=== PATIENT | male | born 1950 | race Caucasian/White ===

== ENCOUNTER → 2020-02-24 12:52 | Outpatient (BNVA) | payer OTHER, MEDICARE, SELFPAY | PROVIDERS: PCP Internal Medicine; Referring Provider Internal Medicine; Visit Provider Orthopaedic Surgery | DX: M17.0 Bilateral primary osteoarthritis of knee (principal); M23.92 Unspecified internal derangement of left knee | CPT/HCPCS: 99213 ==

== ENCOUNTER 2020-03-03 14:21 | Outpatient (REF) | payer OTHER, SELFPAY ==
--- NOTE | 2020-03-03 | MR_ITS ---
EXAMINATION: MR KNEE WITHOUT CONTRAST, RIGHT CLINICAL INFORMATION: Internal derangement. COMPARISON: None TECHNIQUE: MRI of the knee without contrast was performed using routine sequences on a high-field scanner. FINDINGS: MENISCI: Medial Meniscus: Irregular tear of the superior surface and free edge of the posterior horn, with a small displaced meniscal flap near the posterior root image 11 series 4. There is undersurface fraying/tear in the medial aspect of the posterior horn, as well. Degenerative signal in the body, with peripheral undersurface tearing. Lateral Meniscus: Degenerative signal in the body and posterior horn. Linear intermediate intensity horizontal signal in the body contacting the free edge, from possible superimposed tear, but this is not definitive. LIGAMENTS: Cruciate: Intact. Collateral: Intact. EXTENSOR MECHANISM: Intact. ARTICULAR CARTILAGE/BONE: Patellofemoral Compartment: Focal cartilage heterogeneity in the inferior medial trochlea, subchondral edema. Medial Compartment: Mild cartilage thinning and fissuring in the weightbearing femur. Mild cartilage thinning of the tibia. Lateral Compartment: Intact. JOINT FLUID AND BURSAE: Small effusion. Small Chavira's cyst. MR/MR knee RT wo con IMPRESSION: 1. Tear of the posterior horn of the medial meniscus, with a displaced flap near the posterior root. Undersurface tearing of the body. 2. Degeneration in the body of the lateral meniscus, with possible superimposed horizontal tear, but this is not definitive. 3. Mild patellofemoral and medial compartment arthritis. 4. Small effusion. Small Chavira's cyst.
== END 2020-03-03 14:22 | disposition home or self-care (01) ==
LOC: HO.MRI 14:21
PROVIDERS: PCP Internal Medicine; Visit Provider Orthopaedic Surgery
DX: M23.91 Unspecified internal derangement of right knee (principal)
CPT/HCPCS: 73721

== ENCOUNTER → 2020-03-12 09:55 | Outpatient (BNVA) | payer OTHER, SELFPAY | PROVIDERS: PCP Internal Medicine; Referring Provider Internal Medicine; Visit Provider Orthopaedic Surgery | DX: S83.241A Other tear of medial meniscus, current injury, right knee, initial encounter (principal); M17.0 Bilateral primary osteoarthritis of knee | CPT/HCPCS: 99212 ==

== ENCOUNTER 2020-04-15 08:38 | Day surgery (SDC) | payer OTHER, SELFPAY ==
[2020-04-09 16:56] VITALS: BMI 38.8
--- NOTE | 2020-04-14 12:02 | HO.ANESPROP2 ---
Documented by User: Anne Leary 04/14/20 12:07 HPI - Anesthesia Eval Consult details Narrative: 69yo M for Right Knee Scope PMFSH Past Medical History Medical History Acute medial meniscus tear of right knee Anxiety and depression Arthritis Back pain CAD (coronary artery disease) CHF (congestive heart failure) Chronic, continuous use of opioids COPD (chronic obstructive pulmonary disease) Degenerative arthritis of knee, bilateral Diabetes Elevated cholesterol GERD (gastroesophageal reflux disease) HTN (hypertension) Internal derangement of left knee Internal derangement of right knee Myocardial infarction On beta sean at home Peripheral neuropathy PTSD (post-traumatic stress disorder) Sleep apnea Surgical History Surgical History History of back surgery History of cardiac cath History of open reduction and internal fixation (ORIF) procedure History of penile implant Hx of arthroscopy of left knee Hx of bariatric surgery Hx of eye surgery Hx of repair of left rotator cuff Hx of sinus surgery Social History Social History (Updated 04/09/20 @ 16:47 by Rosalinda Almodovar) Smoking Status: Former smoker Smoking Quit Date: 1983 Use of substances other than those prescribed or required for medical reasons: No Advance Directives: No Advance Directives Information Provided: No Advance Directives on File: No Current occupational status: retired 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 Meds Allergies Allergy/AdvReac Type Severity Reaction Status Date / Time gabapentin [GABAPENTIN] Allergy Severe SHORTNESS Verified 04/15/20 08:54 OF BREATH naproxen [NAPROXEN] Allergy Unknown KIDNEY Verified 04/15/20 08:54 SHUT DOWN TO ALL NAPROXEN PRODUCTS Sulfa (Sulfonamide Allergy Unknown HIVES Verified 04/15/20 08:54 Antibiotics) [SULFA (SULFONAMIDE ANTIBIOTICS)] sulfur Allergy Unknown unknown Verified 04/15/20 08:54 anti-inflammatory Allergy Unknown unknown Uncoded 03/12/20 12:44 sulfa Allergy Unknown unknown Uncoded 03/12/20 12:44 Home Medications Medication Instructions Recorded Confirmed Type amlodipine 1 tab PO DAILY 04/09/20 04/15/20 History atorvastatin 1 tab PO DAILY 04/09/20 04/15/20 History brimonidine-timolol [Combigan] 1 drp BID 04/09/20 04/15/20 History dulaglutide [Trulicity] 1.5 mg SUBCUT QWEEK 04/09/20 04/15/20 History duloxetine 1 cap PO DAILY 04/09/20 04/15/20 History fenofibrate 1 tab PO BEDTIME 04/09/20 04/15/20 History furosemide [Lasix] 40 mg PO BID PRN 04/09/20 04/15/20 History hydroxyzine HCl 1 tab PO BEDTIME 04/09/20 04/15/20 History insulin NPH isoph U-100 human 25 unit SUBCUT BID 04/09/20 04/15/20 History [Novolin N NPH U-100 Insulin] insulin aspart U-100 [Novolog 10 unit SUBCUT BID 04/09/20 04/15/20 History U-100 Insulin aspart] losartan 1 tab PO DAILY 04/09/20 04/15/20 History metoprolol tartrate 1 tab PO BID 04/09/20 04/15/20 History nitroglycerin 1 tab SUBLINGUAL NEEDED PRN 04/09/20 04/15/20 History omeprazole 20 mg PO DAILY 04/09/20 04/15/20 History oxycodone-acetaminophen 1 tab PO 5XD PRN 04/09/20 04/15/20 History ropinirole 1 tab PO BEDTIME PRN 04/09/20 04/15/20 History Exam Exam Date and Time: April 14, 2020 1202 Height,Weight and Vital Signs: Height 5 ft 7 in Weight 112.491 kg Narrative Narrative: MIBI 2018: Fixed defect in area of previous MILAGRO; EF 44% with improvement to 60% with stress ECHO 2019: Low normal LV sys function with + RWMA of basal posterior wall with grade 2 DD, Mild LAE, Mild AR, no gross pericard effusion EKG 2019: SR, LAD Assessment and Plan Assessment Anesthesia Assessment: Chart Reviewed Documented by User: Gauri Navarro 04/15/20 12:02 [facility] Past Medical History Medical History Acute medial meniscus tear of right knee Anxiety and depression Arthritis Back pain CAD (coronary artery disease) CHF (congestive heart failure) Chronic, continuous use of opioids COPD (chronic obstructive pulmonary disease) Degenerative arthritis of knee, bilateral Diabetes Elevated cholesterol GERD (gastroesophageal reflux disease) HTN (hypertension) Internal derangement of left knee Internal derangement of right knee Myocardial infarction On beta sean at home Peripheral neuropathy PTSD (post-traumatic stress disorder) Sleep apnea Surgical History Surgical History History of back surgery History of cardiac cath History of open reduction and internal fixation (ORIF) procedure History of penile implant Hx of arthroscopy of left knee Hx of bariatric surgery Hx of eye surgery Hx of repair of left rotator cuff Hx of sinus surgery Social History Social History (Updated 04/09/20 @ 16:47 by Rosalinda Almodovar) Smoking Status: Former smoker Smoking Quit Date: 1983 Use of substances other than those prescribed or required for medical reasons: No Advance Directives: No Advance Directives Information Provided: No Advance Directives on File: No Current occupational status: retired 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 Meds Allergies Allergy/AdvReac Type Severity Reaction Status Date / Time gabapentin [GABAPENTIN] Allergy Severe SHORTNESS Verified 04/15/20 08:54 OF BREATH naproxen [NAPROXEN] Allergy Unknown KIDNEY Verified 04/15/20 08:54 SHUT DOWN TO ALL NAPROXEN PRODUCTS Sulfa (Sulfonamide Allergy Unknown HIVES Verified 04/15/20 08:54 Antibiotics) [SULFA (SULFONAMIDE ANTIBIOTICS)] sulfur Allergy Unknown unknown Verified 04/15/20 08:54 anti-inflammatory Allergy Unknown unknown Uncoded 03/12/20 12:44 sulfa Allergy Unknown unknown Uncoded 03/12/20 12:44 Home Medications Medication Instructions Recorded Confirmed Type amlodipine 1 tab PO DAILY 04/09/20 04/15/20 History atorvastatin 1 tab PO DAILY 04/09/20 04/15/20 History brimonidine-timolol [Combigan] 1 drp BID 04/09/20 04/15/20 History dulaglutide [Trulicity] 1.5 mg SUBCUT QWEEK 04/09/20 04/15/20 History duloxetine 1 cap PO DAILY 04/09/20 04/15/20 History fenofibrate 1 tab PO BEDTIME 04/09/20 04/15/20 History furosemide [Lasix] 40 mg PO BID PRN 04/09/20 04/15/20 History hydroxyzine HCl 1 tab PO BEDTIME 04/09/20 04/15/20 History insulin NPH isoph U-100 human 25 unit SUBCUT BID 04/09/20 04/15/20 History [Novolin N NPH U-100 Insulin] insulin aspart U-100 [Novolog 10 unit SUBCUT BID 04/09/20 04/15/20 History U-100 Insulin aspart] losartan 1 tab PO DAILY 04/09/20 04/15/20 History metoprolol tartrate 1 tab PO BID 04/09/20 04/15/20 History nitroglycerin 1 tab SUBLINGUAL NEEDED PRN 04/09/20 04/15/20 History omeprazole 20 mg PO DAILY 04/09/20 04/15/20 History oxycodone-acetaminophen 1 tab PO 5XD PRN 04/09/20 04/15/20 History ropinirole 1 tab PO BEDTIME PRN 04/09/20 04/15/20 History Exam Airway Mallampati Class: I TM Dist: <=3cm Neck ROM: Limited Partial: Upper and Lower Loose/Missing/Broken Teeth: Yes, Upper and Lower Heart: RRR Lungs: CTA Assessment and Plan Assessment Anesthesia Assessment: Anesthesia Plan Discussed and Chart Reviewed Final Anesthetic Review NPO: Yes ASA Class: III Final Preanesthetic Review: Meds/Allgs Chart Reviewed, Consent Obtained/Reviewed and Anes Risks/Benef Reviewed Patient Risk: Intermediate Procedure Risk: Low Anesthetic Plan Anesthetic Plan: GA Disposition: Standard PACU
[2020-04-15 09:18] VITALS: BP 176/76; PULSE 59; RESP 18; TEMP 36.9; O2SAT 97
[2020-04-15] MEDS: ceFAZolin Sodium/Dextrose,Iso 2 GM/50 ML PIGGYBACK IV (09:33)
[2020-04-15] MEDS: Lactated Ringers 1,000 ML 50 ML IVCONT (09:33)
[2020-04-15 09:37] LABS: Glucose, Whole Blood 188 mg/dL (60-115)
--- NOTE | 2020-04-15 12:05 | MHC.SHP ---
Pre-Procedural Eval Section A The patient is an INPATIENT: No Changes since office visit: Yes Patient answered all questions; No Cold of Flu in the past 2 weeks, No New Medical Problems and No Changes in Medication The History & Physical has been completed within 30 days and I have reviewed it.: Yes Section B Chief Complaint: Medial Meniscus Tear Allergies: Allergies Allergy/AdvReac Type Severity Reaction Status Date / Time gabapentin [GABAPENTIN] Allergy Severe SHORTNESS Verified 04/15/20 08:54 OF BREATH naproxen [NAPROXEN] Allergy Unknown KIDNEY Verified 04/15/20 08:54 SHUT DOWN TO ALL NAPROXEN PRODUCTS Sulfa (Sulfonamide Allergy Unknown HIVES Verified 04/15/20 08:54 Antibiotics) [SULFA (SULFONAMIDE ANTIBIOTICS)] sulfur Allergy Unknown unknown Verified 04/15/20 08:54 anti-inflammatory Allergy Unknown unknown Uncoded 03/12/20 12:44 sulfa Allergy Unknown unknown Uncoded 03/12/20 12:44 Plan Patient has been examined and remains a candidate for the planned procedure
--- NOTE | 2020-04-15 13:09 | PM.OP ---
Brief Operative Note Date of Service: 04/15/20 Pre-op diagnosis: right knee MMT Post-op diagnosis: other (1) right knee MMT 2 ) right knee MFC OA) Procedure: partial medial meniscectomy and chondroplasty Implants: none Surgeon: Derick Russo MD Anesthesia: GETA and local Estimated blood loss (mL): 0 Tourniquet time (min): 27 IV fluids (mL): 700 Pathology: none sent Condition: stable Disposition: PACU
[2020-04-15 13:12] VITALS: BP 115/49; PULSE 65; RESP 12; TEMP 36.5; O2SAT 100
[2020-04-15 13:17] VITALS: BP 163/43; PULSE 64; RESP 18; O2SAT 98
[2020-04-15 13:22] VITALS: BP 143/52; PULSE 57; RESP 16; O2SAT 98
[2020-04-15 13:27] VITALS: BP 169/57; PULSE 60; RESP 18; O2SAT 98
[2020-04-15] MEDS: oxyCODONE HCl Immed Release 5 MG TABLET PO (13:27)
[2020-04-15] MEDS: Acetaminophen 325 MG TABLET 650 MG PO (13:27)
[2020-04-15 13:42] VITALS: BP 154/76; PULSE 59; RESP 18; TEMP 36.5; O2SAT 96
--- NOTE | 2020-04-15 14:19 | HO.POSTANES ---
Post Anesthesia Evaluation Post Anesthesia Evaluation Vital Signs: Vital Signs Temp Pulse Resp BP Pulse Ox 04/15/20 13:42 97.7 F 59 18 154/76 H 96 04/15/20 13:27 60 18 169/57 H 98 04/15/20 13:22 57 16 143/52 H 98 04/15/20 13:17 64 18 163/43 H 98 04/15/20 13:12 97.7 F 65 12 115/49 L 100 04/15/20 09:18 98.4 F 59 18 176/76 H 97 Anesthesia: General LMA Mental Status: Awake Pain Control: Satisfactory Nausea/Vomiting: None Hydration: Adequate Anesthesia-Related Issues: No Anes. Related Issues
--- NOTE | 2020-04-23 14:45 | OP_ITS ---
SURGEON: Derick Russo MD INDICATIONS: 69-year-old gentleman with ongoing refractory right knee pain. MRI, clinical evidence of meniscus tear, but was treated conservatively for months until he plateaued and he was consented to undergo knee arthroscopy. PREOPERATIVE DIAGNOSIS: Right knee medial meniscus tear. POSTOPERATIVE DIAGNOSIS: PROCEDURE PERFORMED: Partial medial meniscectomy and chondroplasty. ESTIMATED BLOOD LOSS: Zero. COMPLICATIONS: None known. ANESTHESIA: ASSISTANTS: None. SPECIMENS: POSTOPERATIVE DIAGNOSES: 1. Right knee medial meniscus tear. 2. Right knee medial femoral condyle osteoarthritis. TOURNIQUET TIME: 27 minutes. FLUIDS: 700. PROCEDURE IN DETAIL: The patient was brought to the operating room, placed supine on the operative table and prepped and draped in standard sterile fashion. Time-out was called to identify proper site, proper procedure, proper surgeon. IV antibiotics per weight was administered. I began by exsanguinating the limb and insufflating tourniquet to 300 mmHg. I then made a standard anterolateral stab incision with a blade and then placed my blunt trocar atraumatically into the patellofemoral joint. I then insufflated the joint and placed my 30-degree arthroscope. He had some grade 1 fibrillation with mild grade 2 changes of the patellofemoral joint, but the gutters were clean. I descended into the medial compartment, where I made by medial portal under direct visualization. Almost immediately evident was a grade 3 with scattered grade 4 changes of the majority of the weightbearing portion of the medial femoral condyle with associated grade 2 changes of the tibial plateau. There was a complex medial meniscus tear, which was debrided down to stable edges with a combination of biter, shaver, and cautery. The chondral surfaces were debrided with a shaver, so there was no loose chondral fragments and the fibrillations were gone. Once this was done, I examined the ACL, which was intact and lateral compartment had some scattered grade 1 changes mostly of the plateau with intact meniscus. I then removed all instrumentation and closed the portals with skin glue. I injected into the knee and the soft tissues with 0.25% Marcaine. The patient was then extubated and brought to recovery room in stable condition. There were no known complications. Derick Russo MD NE/MODL / [id number]
== END 2020-04-15 14:30 | disposition home or self-care (01) ==
PROVIDERS: PCP Internal Medicine; Visit Provider Orthopaedic Surgery
PROC: (CPT 29870; principal; 2020-04-15 10:40)
DX: S83.231A Complex tear of medial meniscus, current injury, right knee, initial encounter (principal); S83.241A Other tear of medial meniscus, current injury, right knee, initial encounter; M23.300 Other meniscus derangements, unspecified lateral meniscus, right knee; M17.11 Unilateral primary osteoarthritis, right knee; M71.21 Synovial cyst of popliteal space [Baker], right knee; M25.461 Effusion, right knee; X58.XXXA Exposure to other specified factors, initial encounter; Y93.9 Activity, unspecified; Y92.9 Unspecified place or not applicable; Y99.8 Other external cause status; Z88.2 Allergy status to sulfonamides; Z88.8 Allergy status to other drugs, medicaments and biological substances; J44.9 Chronic obstructive pulmonary disease, unspecified; E11.9 Type 2 diabetes mellitus without complications; I11.0 Hypertensive heart disease with heart failure; I50.9 Heart failure, unspecified; F11.20 Opioid dependence, uncomplicated; F43.10 Post-traumatic stress disorder, unspecified; Z79.4 Long term (current) use of insulin; Z98.84 Bariatric surgery status; Z87.891 Personal history of nicotine dependence; Z79.899 Other long term (current) drug therapy
CPT/HCPCS: 29881; 82947; J0171; J0690; J2250; J2405; J3010

== ENCOUNTER → 2020-04-27 13:11 | Outpatient (BNVA) | payer OTHER, SELFPAY | PROVIDERS: PCP Internal Medicine; Visit Provider Physician Assistant | DX: M17.11 Unilateral primary osteoarthritis, right knee (principal); Z98.890 Other specified postprocedural states | CPT/HCPCS: 99212 ==

== ENCOUNTER → 2020-07-02 12:29 | Outpatient (BNVA) | payer OTHER, SELFPAY | PROVIDERS: Visit Provider Physician Assistant | DX: Z13.89 Encounter for screening for other disorder (principal) | CPT/HCPCS: 99212 ==

== ENCOUNTER 2020-07-20 12:28 | Outpatient (REF) | payer MEDICARE, BC, SELFPAY ==
[2020-07-20 15:00] LABS: Anion Gap 11 (12-20); Blood Urea Nitrogen 19 mg/dL (9-16); Calcium 8.7 mg/dL (8.4-10.2); Carbon Dioxide 29 mmol/L (22-29); Chloride 104 mmol/L (96-108); Estimated Glomerular Filt Rate 46; Phosphorus 3.4 mg/dL (2.7-4.5); Potassium 4.1 mmol/L (3.3-5.1); Sodium 140 mmol/L (135-145)
[2020-07-20 15:15] LABS: Renal w Reflex Lab Use Only Order verified
[2020-07-20 18:15] LABS: Protein/Creatinine Ratio, Ur 6.01 (<0.2); Total Protein Urine Random 592 mg/dL (<12)
== END 2020-07-20 12:29 | disposition home or self-care (01) ==
LOC: HO.HMGCLDS 12:28
PROVIDERS: PCP Internal Medicine; Visit Provider Internal Medicine Nephrology
DX: E11.22 Type 2 diabetes mellitus with diabetic chronic kidney disease (principal); I12.9 Hypertensive chronic kidney disease with stage 1 through stage 4 chronic kidney disease, or unspecified chronic kidney disease; N18.30 Chronic kidney disease, stage 3 unspecified
CPT/HCPCS: 36415; 80051; 82310; 82565; 84100; 84156; 84520

== ENCOUNTER → 2020-09-02 14:00 | Outpatient (BNVA) | payer MEDICARE, BC, SELFPAY | PROVIDERS: PCP Internal Medicine; Visit Provider Anesthesiology | DX: M17.11 Unilateral primary osteoarthritis, right knee (principal); Z98.890 Other specified postprocedural states | CPT/HCPCS: 99202 ==

== ENCOUNTER 2020-11-03 05:50 | Outpatient (REF) | payer MEDICARE, BC, SELFPAY ==
--- NOTE | ~2020-11-03 | FL_ITS ---
EXAMINATION: XR FLUOROSCOPY WITH IMAGES CLINICAL INFORMATION: M17.11 - Unilateral primary osteoarthritis, right knee COMPARISON: Radiographs right knee 11/21/2019, MR right knee 03/03/2020 TECHNIQUE: Fluoroscopy performed by Venessa Hilton NP. Fluoroscopy time: 0.3 minutes DAP: 2.44 Gycm2 Images: 3 FINDINGS: There are fine needles overlying mid aspect medial and mid aspect lateral sides distal femoral shaft. There is one needle overlying mid aspect proximal tibial shaft. There is spurring at the quadriceps insertion patella. FL/FL guidance in treatment room IMPRESSION: Fluoroscopy for pain management procedures.
== END 2020-11-03 05:51 | disposition home or self-care (01) ==
LOC: HO.RADIR 05:50
PROVIDERS: Visit Provider Anesthesiology
DX: M17.11 Unilateral primary osteoarthritis, right knee (principal); Z98.890 Other specified postprocedural states
CPT/HCPCS: 64454

== ENCOUNTER → 2020-11-12 15:39 | Outpatient (BNVA) | payer MEDICARE, BC, SELFPAY | PROVIDERS: PCP Internal Medicine; Visit Provider Anesthesiology ==

== ENCOUNTER → 2020-12-11 13:18 | Outpatient (BNVA) | payer MEDICARE, BC, SELFPAY | PROVIDERS: PCP Internal Medicine; Visit Provider Urology | DX: T83.490A Other mechanical complication of implanted penile prosthesis, initial encounter (principal); N48.1 Balanitis | CPT/HCPCS: 99202 ==

== ENCOUNTER 2020-12-16 15:24 | Outpatient (REF) | payer MEDICARE, BC, SELFPAY ==
[2020-12-16 16:14] LABS: Estimated Average Glucose 229 mg/dL; Hemoglobin A1c % 9.6 %
[2020-12-16 16:21] LABS: Anion Gap 12 (12-20); Blood Urea Nitrogen 21 mg/dL (9-16); Calcium 9.6 mg/dL (8.4-10.2); Carbon Dioxide 30 mmol/L (22-29); Chloride 104 mmol/L (96-108); Estimated Glomerular Filt Rate 37; Potassium 4.9 mmol/L (3.3-5.1); Sodium 141 mmol/L (135-145)
== END 2020-12-16 15:25 | disposition home or self-care (01) ==
LOC: HO.LAB 15:24
PROVIDERS: Visit Provider Internal Medicine Nephrology
DX: Z13.89 Encounter for screening for other disorder (principal)
CPT/HCPCS: 36415; 80051; 82310; 82565; 83036; 84520

== ENCOUNTER 2021-01-26 07:47 | Outpatient (REF) | payer MEDICARE, BC, SELFPAY ==
--- NOTE | ~2021-01-26 | FL_ITS ---
EXAMINATION: XR FLUOROSCOPY WITH IMAGES CLINICAL INFORMATION: Arthritis COMPARISON: None. TECHNIQUE: Fluoroscopy performed by Venessa Hilton NP. Fluoroscopy time: 0.1 minutes DAP: 0.8 Gycm2 Images: 2 FINDINGS: Images demonstrate needle placement adjacent to the medial proximal tibial metaphysis. There is arthritis of the right knee. FL/FL guidance in treatment room IMPRESSION: Fluoroscopy guidance for pain management procedure.
== END 2021-01-26 07:48 | disposition home or self-care (01) ==
LOC: HO.RADIR 07:47
PROVIDERS: Visit Provider Anesthesiology
DX: M17.11 Unilateral primary osteoarthritis, right knee (principal)
CPT/HCPCS: 64450

== ENCOUNTER → 2021-02-03 13:32 | Outpatient (BNVA) | payer OTHER, SELFPAY | PROVIDERS: PCP Internal Medicine; Visit Provider Anesthesiology ==

== ENCOUNTER 2021-03-30 06:36 | Outpatient (REF) | payer OTHER, SELFPAY ==
--- NOTE | ~2021-03-30 | FL_ITS ---
EXAMINATION: XR FLUOROSCOPY WITH IMAGES CLINICAL INFORMATION: M17.11 - Unilateral primary osteoarthritis, right knee COMPARISON: MR right knee 03/03/2020 TECHNIQUE: Fluoroscopy performed by Dr. Aniceto Wiley. Fluoroscopy time: 0.1 minutes DAP: 1.39 Gycm2 Images: 1 FINDINGS: There are 2 spinal needles adjacent to the distal femoral shaft mid depth. There is spurring at the quadriceps insertion patella. FL/FL guidance in treatment room IMPRESSION: Fluoroscopy for pain management procedures.
== END 2021-03-30 06:37 | disposition home or self-care (01) ==
LOC: HO.RADIR 06:36
PROVIDERS: Visit Provider Anesthesiology
DX: M17.11 Unilateral primary osteoarthritis, right knee (principal); Z98.890 Other specified postprocedural states

== ENCOUNTER → 2021-04-07 13:39 | Outpatient (BNVA) | payer OTHER, SELFPAY | PROVIDERS: PCP Internal Medicine; Visit Provider Anesthesiology | DX: M17.11 Unilateral primary osteoarthritis, right knee (principal); G90.522 Complex regional pain syndrome I of left lower limb; Z98.890 Other specified postprocedural states | CPT/HCPCS: 99212 ==

== ENCOUNTER 2021-05-03 12:16 | Outpatient (REF) | payer OTHER, SELFPAY ==
--- NOTE | ~2021-05-03 | XR_ITS ---
EXAMINATION: XR PELVIS XR KNEE, STANDING BILATERAL XR KNEE, RIGHT CLINICAL INDICATION: Pain. COMPARISON: 11/21/2019 TECHNIQUE: Standing image of bilateral knees. Two views of the right knee. Single image of pelvis. FINDINGS: Standing image of the knees demonstrates moderate medial compartment joint space loss on the right greater than left. There is also lateral compartment moderate joint space loss on the left. More mild on the right. The detailed imaging of the right knee demonstrates moderate patellofemoral degenerative change. The patella appears well seated. Trace effusion is present. The single image of the pelvis demonstrates degenerative change in the lower lumbosacral spine. The SI joints are grossly patent but there does appear to be some sclerosis consistent with degenerative changes. Degenerative changes also in the hips but the femoral head contours are smooth. Degenerative change in the greater trochanteric regions left greater than right. Joint space loss in the right greater than left hip axial and inferior. XR/XR knee standing BI IMPRESSION: Moderate degenerative changes with specific areas described above. Findings are Ongoing from previous of 11/21/2019
--- NOTE | ~2021-05-03 | XR_ITS ---
EXAMINATION: XR PELVIS XR KNEE, STANDING BILATERAL XR KNEE, RIGHT CLINICAL INDICATION: Pain. COMPARISON: 11/21/2019 TECHNIQUE: Standing image of bilateral knees. Two views of the right knee. Single image of pelvis. FINDINGS: Standing image of the knees demonstrates moderate medial compartment joint space loss on the right greater than left. There is also lateral compartment moderate joint space loss on the left. More mild on the right. The detailed imaging of the right knee demonstrates moderate patellofemoral degenerative change. The patella appears well seated. Trace effusion is present. The single image of the pelvis demonstrates degenerative change in the lower lumbosacral spine. The SI joints are grossly patent but there does appear to be some sclerosis consistent with degenerative changes. Degenerative changes also in the hips but the femoral head contours are smooth. Degenerative change in the greater trochanteric regions left greater than right. Joint space loss in the right greater than left hip axial and inferior. XR/XR pelvis 1-2V IMPRESSION: Moderate degenerative changes with specific areas described above. Findings are Ongoing from previous of 11/21/2019
--- NOTE | ~2021-05-03 | XR_ITS ---
EXAMINATION: XR PELVIS XR KNEE, STANDING BILATERAL XR KNEE, RIGHT CLINICAL INDICATION: Pain. COMPARISON: 11/21/2019 TECHNIQUE: Standing image of bilateral knees. Two views of the right knee. Single image of pelvis. FINDINGS: Standing image of the knees demonstrates moderate medial compartment joint space loss on the right greater than left. There is also lateral compartment moderate joint space loss on the left. More mild on the right. The detailed imaging of the right knee demonstrates moderate patellofemoral degenerative change. The patella appears well seated. Trace effusion is present. The single image of the pelvis demonstrates degenerative change in the lower lumbosacral spine. The SI joints are grossly patent but there does appear to be some sclerosis consistent with degenerative changes. Degenerative changes also in the hips but the femoral head contours are smooth. Degenerative change in the greater trochanteric regions left greater than right. Joint space loss in the right greater than left hip axial and inferior. XR/XR knee RT 2V IMPRESSION: Moderate degenerative changes with specific areas described above. Findings are Ongoing from previous of 11/21/2019
== END 2021-05-03 12:17 | disposition home or self-care (01) ==
LOC: HO.HOSX 12:16
PROVIDERS: Visit Provider Orthopaedic Surgery
DX: M17.11 Unilateral primary osteoarthritis, right knee (principal); M25.561 Pain in right knee; R20.0 Anesthesia of skin; G90.522 Complex regional pain syndrome I of left lower limb; M25.552 Pain in left hip; M25.551 Pain in right hip; E11.42 Type 2 diabetes mellitus with diabetic polyneuropathy; E78.00 Pure hypercholesterolemia, unspecified; F41.8 Other specified anxiety disorders; Z88.6 Allergy status to analgesic agent; Z88.2 Allergy status to sulfonamides; Z88.8 Allergy status to other drugs, medicaments and biological substances; Z79.891 Long term (current) use of opiate analgesic
CPT/HCPCS: 72170; 73560; 73565; 99212

== ENCOUNTER → 2021-07-21 13:19 | Outpatient (BNVA) | payer OTHER, SELFPAY | PROVIDERS: PCP Internal Medicine; Visit Provider Anesthesiology | DX: M17.11 Unilateral primary osteoarthritis, right knee (principal); G90.522 Complex regional pain syndrome I of left lower limb; Z98.890 Other specified postprocedural states | CPT/HCPCS: 99212 ==

== ENCOUNTER 2021-07-21 14:57 | Outpatient (REF) | payer MEDICARE, BC, SELFPAY ==
[2021-07-21 15:13] LABS: MANUAL DIFF FLAG NO
[2021-07-21 15:19] LABS: Basophils Absolute Auto 0.1 X10*3/uL (0.0-0.2); Basophils Percent Auto 0.8 % (0-2); Eosinophils Absolute Auto 0.8 X10*3/uL (0.0-0.4); Eosinophils Percent Auto 8.4 % (0-4); Hematocrit 42.6 % (42.0-52.0); Hemoglobin 14.1 g/dl (14.0-18.0); Imm Gran Abs Auto 0.01 X10*3/uL (0.00-0.03); Imm Gran Pct Auto 0.1 % (0.0-0.4); Lymphocytes Absolute Auto 2.1 X10*3/uL (1.2-4.9); Mean Corpuscular HGB Conc 33.1 g/dl (31.0-36.0); Mean Corpuscular Hemoglobin 30.1 pg (27.0-33.0); Monocytes Absolute Auto 0.9 X10*3/uL (0.1-1.2); Monocytes Percent Auto 9.5 % (2-11); Neutrophils Absolute Auto 5.3 x10*3/uL (2.0-8.3); Neutrophils Percent Auto 58.2 % (45-73); Platelet Count 265 X10*3/uL (160-400); Red Blood Count 4.68 X10*6/uL (4.60-5.80); Red Cell Distribution Width 13.2 % (11.0-16.0)
[2021-07-21 15:26] LABS: Estimated Average Glucose 203 mg/dL; Hemoglobin A1c % 8.7 %
[2021-07-21 15:40] LABS: Anion Gap 11 (12-20); Blood Urea Nitrogen 15 mg/dL (9-16); Calcium 9.2 mg/dL (8.4-10.2); Carbon Dioxide 27 mmol/L (22-29); Chloride 106 mmol/L (96-108); Estimated Glomerular Filt Rate 41; Potassium 4.3 mmol/L (3.3-5.1); Sodium 140 mmol/L (135-145)
[2021-07-21 16:03] LABS: Vitamin D 25-OH Total 13.1 ng/mL (>30)
[2021-07-22 12:51] LABS: PTHI 105 pg/mL (16-77)
== END 2021-07-21 14:58 | disposition home or self-care (01) ==
LOC: HO.LAB 14:57
PROVIDERS: PCP Internal Medicine; Visit Provider Internal Medicine Nephrology
DX: I12.9 Hypertensive chronic kidney disease with stage 1 through stage 4 chronic kidney disease, or unspecified chronic kidney disease (principal); N18.31 Chronic kidney disease, stage 3a; E11.22 Type 2 diabetes mellitus with diabetic chronic kidney disease; E11.21 Type 2 diabetes mellitus with diabetic nephropathy
CPT/HCPCS: 36415; 80051; 82306; 82310; 82565; 83036; 83970; 84100; 84520; 85025

== ENCOUNTER 2021-11-11 10:04 | Outpatient (REF) | payer OTHER, SELFPAY ==
--- NOTE | 2021-11-11 10:07 | EMG_ITS ---
Right tibial and peroneal motor studies were performed, right superficial peroneal and sural sensory studies were performed, and paraspinal muscles were tested with a needle. 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 MD CHITRA Covarrubias/BRIAN / [id number]
== END 2021-11-11 10:05 | disposition home or self-care (01) ==
LOC: HO.NEURO 10:04
PROVIDERS: PCP Internal Medicine; Visit Provider Anesthesiology
DX: M21.6X9 Other acquired deformities of unspecified foot (principal)
CPT/HCPCS: 95886; 95909

== ENCOUNTER → 2021-12-02 10:06 | Outpatient (BNVA) | payer OTHER, SELFPAY | PROVIDERS: PCP Internal Medicine; Visit Provider Anesthesiology | DX: M17.11 Unilateral primary osteoarthritis, right knee (principal); G90.522 Complex regional pain syndrome I of left lower limb; Z98.890 Other specified postprocedural states | CPT/HCPCS: 99212 ==

== ENCOUNTER 2022-02-02 15:19 | Emergency (ER) | payer OTHER, MEDICARE, SELFPAY ==
--- NOTE | ~2022-02-02 | XR_ITS ---
EXAMINATION: XR CHEST CLINICAL INFORMATION: Chest pain COMPARISON: Previous x-ray March 2021 TECHNIQUE: 2 views of the chest were obtained. FINDINGS: The cardiac silhouette is enlarged. Hilar and mediastinal contours are unremarkable. The lungs are clear. There is no pleural effusion or pneumothorax. There are degenerative changes of the spine. There is a spinal stimulator lead in the lower thoracic spine. There are postsurgical changes to the left shoulder. XR/XR chest 2V IMPRESSION: Slightly enlarged cardiac silhouette. Otherwise unremarkable exam.
[2022-02-02 15:24] VITALS: BP 173/80; PULSE 65; RESP 18; TEMP 37.1; O2SAT 97; BMI 39.5
--- NOTE | 2022-02-02 15:31 | ECG_ITS ---
Test Reason : CHEST PAIN Blood Pressure : / mmHG Vent. Rate : 060 BPM Atrial Rate : 060 BPM P-R Int : 178 ms QRS Dur : 098 ms QT Int : 416 ms P-R-T Axes : 016 -23 051 degrees QTc Int : 416 ms Normal sinus rhythm Normal ECG When compared with ECG of 14-MAR-2012 14:04, Nonspecific T wave abnormality no longer evident in Lateral leads Referred By: Generic ED Physician Electronically Signed By:ZOË NIEVES
[2022-02-02 15:36] VITALS: BP 164/83
[2022-02-02 16:03] LABS: MANUAL DIFF FLAG NO
[2022-02-02 16:16] LABS: Basophils Percent Auto 0.5 % (0-2); Eosinophils Absolute Auto 0.3 X10*3/uL (0.0-0.4); Eosinophils Percent Auto 3.4 % (0-4); Hematocrit 41.4 % (42.0-52.0); Hemoglobin 13.4 g/dl (14.0-18.0); Imm Gran Abs Auto 0.03 X10*3/uL (0.00-0.03); Imm Gran Pct Auto 0.4 % (0.0-0.4); Lymphocytes Absolute Auto 2.6 X10*3/uL (1.2-4.9); Lymphocytes Percent Auto 35.2 % (20-40); Mean Corpuscular HGB Conc 32.4 g/dl (31.0-36.0); Mean Corpuscular Hemoglobin 28.9 pg (27.0-33.0); Mean Corpuscular Volume 89.2 fL (80.0-98.0); Mean Platelet Volume 9.7 fL (9.4-12.4); Monocytes Absolute Auto 0.7 X10*3/uL (0.1-1.2); Monocytes Percent Auto 9.4 % (2-11); Neutrophils Absolute Auto 3.7 x10*3/uL (2.0-8.3); Neutrophils Percent Auto 51.1 % (45-73); Platelet Count 288 X10*3/uL (160-400); Red Blood Count 4.64 X10*6/uL (4.60-5.80); White Blood Count 7.3 X10*3/uL (4.8-10.8)
[2022-02-02 16:23] LABS: Alanine Aminotransferase 13 U/L (0-40); Albumin Level 3.6 g/dL (3.5-5.0); Alkaline Phosphatase 56 U/L (39-117); Anion Gap 16 (12-20); Aspartate Amino Transferase 15 U/L (5-37); Bilirubin Total 0.3 mg/dL (0.0-1.0); Blood Urea Nitrogen 18 mg/dL (9-16); Calcium 9.4 mg/dL (8.4-10.2); Carbon Dioxide 27 mmol/L (22-29); Chloride 108 mmol/L (96-108); Creatinine Clr Calc Pharmacy 47.7; Estimated Glomerular Filt Rate 38; Glucose Random 97 mg/dL (60-115); Potassium 4.5 mmol/L (3.3-5.1); Sodium 146 mmol/L (135-145); Total Protein 6.6 g/dL (6.5-8.0)
[2022-02-02 16:28] LABS: Troponin-I High Sensitivity 14.5 ng/L (<3.5-35.0)
--- OUTSIDE RECORDS SUMMARY | 2022-02-03 00:24 | XMS_ITS | Continuity of Care Document ---
:1950 Author Organization [address], [address] [place] [address]- Care Team Providers Name Role Phone Oswaldo COBIAN, Anup Reece Primary Care Phys[place] [facility] [place]/[address], [address] [place], [place] [address] Allergies, Adverse Reactions, Alerts Substance Reaction Severity Status naproxen Balance disorder, dysphoria Persistent Severe Ac tive sulfa drugs severe rash all over Persistent Severe Active Advil1 stomach pain Persistent Severe Active 1recorded per 's written orders Immunizations Given and Recorded Vaccine Date Status Refusal Reason SARS-CoV-2 (COVID-19) mRNA BNT-162b2 vac 08/06/20 Given SARS-CoV-2 (COVID-19) mRNA BNT-162b2 vac 07/16/20 Given pneumococcal 23-valent vaccine 02/14/09 Given influenza virus vaccine, inactivated 02/14/09 Given Medications amLODIPine 5 mg oral tablet 5 mg, 1, tablet, By Mouth, Daily, # 90 tablet, Refills 3, Tot. Refills 3, Maintenance, 04/09/19 11:51:00 EST, Route to Pharmacy Electronically, [id number], [facility]/pharmacy #[id number],172.7, cm, 04/09/18 15:08:56 EST, Height, 114.1,... Start Date: 04/09/19 Status: Orderedaspirin 81 mg oral tablet 1 tablet, By Mouth, Daily, # 30 tablet, 0 Refills, Maintenance, Tablet Start Date: 09/29/10 Status: Orderedatorvastatin 80 mg oral tablet 1 tablet = 80 mg, By Mouth, Daily, # 90 tablet, 0 Refills, Maintenance, 09/03/19 11:26:00 EDT, Tablet Start Date: 09/03/19 Status: Orderedbaclofen 10 mg oral tablet 1 tablet = 10 mg, By Mouth, 4 times a day, PRN as needed for muscle spasm, 0 Refills, Maintenance, 10/31/11 9:57:57, Tablet Start Date: 10/31/11 Status: OrderedCPAP Equipment See Instructions, 0, 0, 07/25/07 16:53:36, CPap at 13 cm H2O with Nasal Pillows, ADS OPPTHS Start Date: 07/25/07 Status: Orderedfenofibrate 54 mg oral tablet 1 tablet = 54 mg, By Mouth, Daily, Maintenance, 08/28/15 9:15:28 Start Date: 08/28/15 Status: OrderedFurosemide = 40 mg, By Mouth, Daily, PRN Other, as needed for edema, 0 Refills, Maintenance, 08/21/10 12:30:41 Start Date: 08/21/10 Status: OrderedHumalog Inj 40ux - 60ux, Subcutaneous Infusion, 3 times a day before meals, 0 Refills, Maintenance, 06/23/10 4:03:14 Start Date: 06/23/10 Status: OrderedhydrOXYzine hydrochloride 10 mg oral tablet See Instructions, 1 tablet By Mouth AT BEDTIME NEEDED, 0 Refills, Maintenance, 09/03/19 11:25:00 EDT Start Date: 09/03/19 Status: Orderedlansoprazole 15 mg oral enteric coated capsule 1 capsule, By Mouth, 2 times a day, # 30 capsule, 0 Refills, Maintenance, 09/29/10 14:22:27 EDT, EC Capsule Start Date: 09/29/10 Status: OrderedLantus 100 u/ml subcutaneous solution 68 units, Subcutaneous Infusion, Daily at bedtime, 0 Refills, Maintenance Start Date: 09/29/10 Status: Orderedlisinopril 40 mg oral tablet 1 tablet, By Mouth, Daily, # 30 tablet, 0 Refills, Maintenance, Tablet Start Date: 09/29/10 Status: Orderedmetoprolol 50 mg oral tablet 1 tablet = 50 mg, By Mouth, 2 times a day, # 60 tablet, 0 Refills, Maintenance, Tablet Start Date: 08/23/10 Status: Orderednitroglycerin 0.4 mg sublingual tablet 1 tablet = 0.4 mg, Sublingual, Every 5 minutes, PRN for chest pain, # 25 tablet, 2 Refills, Maintenance, 09/03/19 12:11:00 EDT, Tablet, [facility]/pharmacy #[id number], 172.7, cm, 04/09/18 15:08:00 EST, Height, 114.1, kg, 04/09/18 6:42:00 EST, Dry Weight Start Date: 09/03/19 Status: OrderedOxycodone By Mouth, 0 Refills, Maintenance Start Date: 09/29/10 Status: OrderedRequip 3 mg oral tablet 1 tablet = 3 mg, By Mouth, Daily at bedtime, PRN Other, for restless leg syndrome, 0 Refills, Maintenance, 09/14/10 11:30:43 Start Date: 09/14/10 Status: OrderedTrulicity Pen 0.75 mg/0.5 mL subcutaneous solution 0.5 mL = 0.75 mg, Subcutaneous Injection, Every week, 0 Refills, Maintenance, 09/03/19 11:22:00 EDT,Solution Start Date: 09/03/19 Status: Orderedvenlafaxine 37.5 mg oral capsule, extended release 37.5 mg, 1, capsule, By Mouth, Daily, # 90 capsule, Refills 0, Maintenance, 09/03/19 11:24:00 EDT Start Date: 09/03/19 Status: Orderedvenlafaxine 50 mg oral tablet 1 tablet = 50 mg, By Mouth, Daily, 0 Refills, Maintenance, 09/03/19 11:25:00 EDT, Tablet Start Date: 09/03/19 Stop Date: 10/03/19 Status: OrderedVitamin E By Mouth, Daily, 0 Refills, Maintenance Start Date: 09/29/10 Status: Ordered Problem List Condition Effective Dates Status Health Status Informant Acute renal failure 05/08/10 Active syndrome(Confirmed) Chronic Kidney Disease, Stage III Active (Moderate)(Confirmed) Chronic low back pain(Confirmed) Active Coronary artery disease(Confirmed) 08/07/05 Active Coronary artery disease(Confirmed) Active Diabetes mellitus - adult 06/09/02 Active onset(Confirmed) Diabetes mellitus type 2(Confirmed)1 Active Hyperlipidemia(Confirmed) Active Hypertension(Confirmed) Active Obstructive sleep apnea (adult or Active pediatric)(Confirmed) Restless legs syndrome(Confirmed) Active 1insulin dependent Social History Social History Type Response Smoking Status Former smoker; Tobacco user in household: No; Type: Cigarettes; Other: pt quit over 30 yrs ago; entered on: 01/29/16 Sex
--- OUTSIDE RECORDS SUMMARY | 2022-02-03 00:24 | XMS_ITS | Continuity of Care Document ---
:1950 Author Organization [facility] Address [address] [place] [id number]- Care Team Providers Name Role Phone Anup Chacon MD Primary Care Physician [place] [facility] [place]22[place]21 - 09/23/[address] [address] [[email or web address] Discharge Disposition: A-D/C Home Attending Physician: Amado Linares MD Admitting Physician: Amado Linares MD Referring Physician: Amado Linares MD Allergies, Adverse Reactions, Alerts Substance Reaction Severity [...] influenza virus vaccine, inactivated 02/14/09 Given Medications aspirin 81 mg oral tablet 1 tablet, By [...] 10/31/11 9:57:57, Tablet Start Date: 10/31/11 Status: OrderedCombigan 0.2%-0.5% ophthalmic solution 1 drops, Eyes, Both, Every 12 hours, # 10 mL, 0 Refills, Maintenance, 09/21/21 8:19:00 EDT, Solution, Partial fill upon patient request if the prescription is for a schedule II opioid drug. Start Date: 09/21/21 Status: OrderedCPAP Equipment See Instructions, 0, 0, 07/25/07 16:53:36, CPap at 13 cm H2O with Nasal Pillows, ADS OPPTHS Start Date: 07/25/07 Status: Orderedduloxetine 30 mg oral enteric coated capsule 3 capsule = 90 mg, By Mouth, Daily, do not crush or chew, # 90 capsule, 0 Refills, Maintenance, 05/06/21 14:31:00 EST, CR Capsule, Partial fill upon patient request if the prescription is for a schedule II opioid drug. Start Date: 05/06/21 Status: Orderedfenofibrate 54 mg oral tablet 1 tablet = 54 mg, By Mouth, Daily, Maintenance, 08/28/15 9:15:28 Start Date: 08/28/15 Status: OrderedFLUoxetine 40 mg oral capsule 1 capsule = 40 mg, By Mouth, Daily in AM, Maintenance, 09/21/21 8:16:00 EDT, Capsule, Partial fill upon patient request if the prescription is for a schedule II opioid drug. Start Date: 09/21/21 Status: OrderedFurosemide = 40 mg, By Mouth, Daily, PRN Other, as needed for edema, 0 Refills, Maintenance, 08/21/10 12:30:41 Start Date: 08/21/10 Status: Orderedgabapentin 300 mg oral capsule 300 mg, Capsule, By Mouth, 09/23/21 9:00:00 EDT Start Date: 09/23/21 Stop Date: 09/23/21 Status: CompletedhydrOXYzine hydrochloride 10 mg oral tablet See Instructions, 1 tablet By Mouth AT BEDTIME NEEDED, 0 Refills, Maintenance, 09/03/19 11:25:00 EDT Start Date: 09/03/19 Status: Orderedlosartan 100 mg oral tablet 1 tablet = 100 mg, By Mouth, Daily at bedtime, # 30 tablet, 0 Refills, Maintenance, 05/06/21 14:31:00 EST, Tablet, Partial fill upon patient request if the prescription is for a schedule II opioid drug. Start Date: 05/06/21 Status: OrderedLumigan 0.01% ophthalmic solution 1 drops, Eyes, Both, Daily in PM, 0 Refills, Maintenance, 09/21/21 8:19:00 EDT, Solution, Partial fill upon patient request if the prescription is for a schedule II opioid drug. Start Date: 09/21/21 Status: Orderedmetoprolol 50 mg oral tablet 1 tablet = 50 mg, By Mouth, 2 times a day, # 60 tablet, 0 Refills, Maintenance, Tablet Start Date: 08/23/10 Status: Orderedmetoprolol 50 mg oral tablet 50 mg, Tablet, By Mouth, 09/23/21 9:00:00 EDT Start Date: 09/23/21 Stop Date: 09/23/21 Status: Completedmirtazapine 30 mg oral tablet 1 tablet = 30 mg, By Mouth, Daily in AM, # 30 tablet, 0 Refills, Maintenance, 05/06/21 14:31:00 EST,Tablet, Partial fill upon patient request if the prescription is for a schedule II opioid drug. Start Date: 05/06/21 Status: Orderednitroglycerin 0.4 mg sublingual tablet 1 tablet = 0.4 mg, Sublingual, Every 5 minutes, PRN for chest pain, # 25 tablet, 2 Refills, Maintenance, 09/03/19 12:11:00 EDT, Tablet, [facility]/pharmacy #[id number], 172.7, cm, 04/09/18 15:08:00 EST, Height, 114.1, kg, 04/09/18 6:42:00 EST, Dry Weight Start Date: 09/03/19 Status: OrderedNovoLog Inj = 12 units, Subcutaneous Injection, Daily in AM, 0 Refills, Maintenance, 09/21/21 8:21:00 EDT, Partial fill upon patient request if the prescription is for a schedule II opioid drug. Start Date: 09/21/21 Status: OrderedNovoLog Inj = 25 units, Subcutaneous Infusion, Daily at bedtime, 0 Refills, Maintenance, 09/21/21 8:29:00 EDT, Partial fill upon patient request if the prescription is for a schedule II opioid drug. Start Date: 09/21/21 Status: OrderedOmeprazole 3 pills, By Mouth, Daily in AM, 0 Refills, Maintenance, 05/06/21 14:32:00 EST, Partial fill upon patient request if the prescription is for a schedule II opioid drug. Start Date: 05/06/21 Status: OrderedoxyCODONE 5 mg oral tablet 5 mg, 1, tablet, By Mouth, Every 6 hours, PRN, # 28 tablet, Refills 0, Tot. Refills 0, Acute 09/30/21 14:24:00 EDT, Pain , Moderate, 09/22/21 14:24:00 EDT, Route to Pharmacy Electronically, [facility], Partial fill upon patient request i... Start Date: 09/22/21 Stop Date: 09/30/21 Status: OrderedPercocet 10 mg-325 mg oral tablet 1 tablet, By Mouth, Every 4 hours, PRN Pain , Moderate, 0 Refills, Maintenance, 09/21/21 8:26:00 EDT, Partial fill upon patient request if the prescription is for a schedule II opioid drug. Start Date: 09/21/21 Status: OrderedRequip 3 mg oral tablet 1 tablet = 3 mg, By Mouth, Daily at bedtime, PRN Other, for restless leg syndrome, 0 Refills, Maintenance, 09/14/10 11:30:43 Start Date: 09/14/10 Status: Orderedsertraline 150 mg oral capsule 1 capsule = 150 mg, By Mouth, Daily in AM, 0 Refills, Maintenance, 09/21/21 8:09:00 EDT, Partial fill upon patient request if the prescription is for a schedule II opioid drug. Start Date: 09/21/21 Status: OrderedTriamcinolone See Instructions, 0 Refills, Maintenance, 09/21/21 8:31:00 EDT, Partial fill upon patient request ifthe prescription is for a schedule II opioid drug. Start Date: 09/21/21 Status: OrderedTrulicity Pen 0.75 mg/0.5 mL subcutaneous solution 0.5 mL = 0.75 mg, Subcutaneous Injection, Every week, 0 Refills, Maintenance, 09/03/19 11:22:00 EDT,Solution Start Date: 09/03/19 Status: Ordered Problem List Condition Effective Dates Status Health Status Informant Acute renal failure 05/08/10 Active syndrome(Confirmed) Chronic Kidney Disease, Stage III Active (Moderate)(Confirmed) Chronic low back pain(Confirmed) Active Coronary artery disease(Confirmed) 08/07/05 Active Coronary artery disease(Confirmed) Active Diabetes mellitus - adult 06/09/02 Active onset(Confirmed) Diabetes mellitus type 2(Confirmed)1 Active Hyperlipidemia(Confirmed) Active Hypertension(Confirmed) Active Obese class II(Confirmed) Active Obstructive sleep apnea (adult or Active pediatric)(Confirmed) Restless legs syndrome(Confirmed) Active 1insulin dependent Procedures Procedure Date Related Diagnosis Body Site Status Laminectomy for implantation of Completed neurostimulator electrodes, plate/paddle, epidural Results Radiology Reports Exam Date Time Procedure Performing Provider Status 09/22/21 4:16 PM C-Arm > 1 Hour Neri Leal; Auth (Verified) Notes:(C-Arm > 1 Hour) Reason For Exam: spinal stimRESULT: C-Arm > 1 Hour Spine Single View, C-Arm > 1 Hour INDICATION: Reason: spinal stim COMPARISONS: None TECHNIQUE: Fluoroscopy support was provided. There was no radiologist in attendance. FLUOROSCOPY TIME: 18.9 seconds EXPOSURE: 16.95 mGy TECHNOLOGIST TIME: 55 minutes FINDINGS: Images document spinal stimulator lead placement terminating in the mid to lower thoracic spine. IMPRESSION: See above. WSN: [id number] Ordering Physician: Amado Linares Dictated By: Liang Chávez MD Dictated Date/Time: 09/22/21 4:37 pm Reviewed By: Liang Chávez MD Signed By: Liang Chávez MD Signed Date/Time: 09/22/21 4:37 pm Transcribed By: BREANNA Transcribed Date/Time: 09/22/21 4:37 pm Exam Date Time Procedure Performing Provider Status 09/22/21 4:16 PM Spine Single View Neri Leal; Auth (Verified ) Notes:(Spine Single View) Reason For Exam: spinal stimRESULT: Spine Single View Spine Single View, C-Arm > 1 Hour INDICATION: Reason: spinal stim COMPARISONS: None TECHNIQUE: Fluoroscopy support was provided. There was no radiologist in attendance. FLUOROSCOPY TIME: 18.9 seconds EXPOSURE: 16.95 mGy TECHNOLOGIST TIME: 55 minutes FINDINGS: Images document spinal stimulator lead placement terminating in the mid to lower thoracic spine. IMPRESSION: See above. WSN: [id number] Ordering Physician: Amado Linares Dictated By: Liang Chávez MD Dictated Date/Time: 09/22/21 4:37 pm Reviewed By: Liang Chávez MD Signed By: Liang Chávez MD Signed Date/Time: 09/22/21 4:37 pm Transcribed By: BREANNA Transcribed Date/Time: 09/22/21 4:37 pm Vital Signs Most recent to oldest 1 2 3 [Reference Range]: Height 172.72 cm 172.72 cm 172.72 cm (09/23/21 11:39 AM) (09/22/21 1:32 PM) (09/21/21 8: 41 AM) Weight 111.9 kg 113.18 kg (09/22/21 1:32 PM) (09/21/21 8:41 AM) Oxygen Saturation [94-100 96 % 98 % 96 % %] (09/23/21 11:39 AM) (09/23/21 7:00 AM) (09/23/21 3: 00 AM) Pulse Rate [55-90 bpm] 65 bpm 62 bpm 62 bpm (09/23/21 11:39 AM) (09/23/21 8:14 AM) (09/23/21 7: 00 AM) Body Mass Index 37.51 37.94 [18.5-24.99] *>HHI* *>HHI* (09/22/21 1:32 PM) (09/21/21 8:41 AM) Blood Pressure 150/62 mm Hg 137/55 mm Hg 137/55 mm Hg [90-138/55-84 mm Hg] *H* (09/23/21 8:14 AM) (09/23/21 7:00 AM) (09/23/21 11:39 AM) Respiratory Rate [16-30 20 br/min 20 br/min 20 br/mi n br/min] (09/23/21 11:39 AM) (09/23/21 9:14 AM) (09/23/21 8: 14 AM) Temperature [96.8-100.4 98 DegF 97.9 DegF 97.9 Deg F DegF] (09/23/21 11:39 AM) (09/23/21 7:00 AM) (09/23/21 3: 00 AM) Liters per Minute 2 L/min 2 L/min 2 L/min (09/23/21 7:00 AM) (09/23/21 3:00 AM) (09/22/21 11: 00 PM) Mode of Delivery (Oxygen) Room air Nasal cannula Nasal cannula (09/23/21 11:39 AM) (09/23/21 7:00 AM) (09/23/21 3: 00 AM) Blood pressure sites Arm, left Arm, left Arm, left (09/23/21 7:00 AM) (09/23/21 3:00 AM) (09/22/21 11: 00 PM) Temperature Route Oral Oral Oral (09/23/21 11:39 AM) (09/23/21 7:00 AM) (09/23/21 3: 00 AM) Dry Weight 111.9 kg 113.18 kg (09/22/21 1:32 PM) (09/21/21 8:41 AM) Weight Obtained Via Standing scale Patient/family stated (09/22/21 1:32 PM) (09/21/21 8:41 AM) Dry Weight Obtained Via Standing scale Patient/family stated (09/22/21 1:32 PM) (09/21/21 8:41 AM) Social History Social History Type Response Smoking Status Former smoker; Tobacco user in household: No; Type: Cigarettes; Other: pt quit over 30 yrs ago; entered on: 01/29/16 Sex
--- OUTSIDE RECORDS SUMMARY | 2022-02-03 00:24 | XMS_ITS | Continuity of Care Document ---
:1950 Author Organization [facility] Care Team Providers Name Role Phone [facility] Unavailable Unavailable Problems Combined list of problems from Department of Defense and Veterans Affairs facilities. It does not include entries that were removed or entered in error. Problem Status Onset Problem Date of Comments Source Date Type Resolution Chronic pain Active Condition Mar 08spring Entered By: DUNCAN SEVILLA AM Comment: opioid pain agreement signed Aug 15, 2013 Entered By: DUNCAN SEVILLA AM Comment: 06/21 uds ok Aug 26, 2013 Entered By: DUNCAN SEVILLA AM Comment: DPH check ok 08/15/13 Co-management Active Condition [place] CNT [facility] W[facility] MANDI S [facility] Coronary artery Active Condition Jul 07, [facility] disease (SNOMED CT 2021 Entere d [id number]) By: ROMULO GARCIA Comment: s/p PCI 2005 DESx1 circumflex Depression (SCT [facility] Condition Aug 16, [id number] 2021 Entered By: EDY LEAVITT Comment: reviewed Essential hypertension Active Condition [place] (SNOMED CT 61658761) Gastroesophageal Active Condition [facility] Reflux Disorder Glaucoma Active Condition [facility] D Herniated Disc * Active Condition [facility] (ICD-9-CM 722.2) Hypercholesterolemia Active Condition [place] (SNOMED CT 31956277) Impingment Syndrome Active Condition [facility] Insomnia Active Condition Jul 31, [place] [facility] 2020 Entered WSTRN By: EYD CHU Comment: reviewed Aug 16, 2021 Entered By: EDY LEAVITT Comment: reviewed Mixed hyperlipidemia Active Condition [facility] Obesity Active Condition [facility] [place] [facility] Osteoarthritis (SNOMED Active Condition [place] 416027924) Posttraumatic stress Active Condition Dec 14 , [place] [facility] disorder 2018 Entered WSTRN By: EDY CHU Comment: reviewed Jul 31, 2020 Entered By: EDY LEAVITT Comment: reviewed Aug 16, 2021 Entered By: EDY LEAVITT Comment: reviewed Renal Impairment (SCT Active Condition Apr 07, [place] [id number]) 2020 Entered By: ROMULO GARCIA Comment: CKD3 Restless legs Active Condition [facility]I Lom[facility] [place] Sleep apnea (SNOMED CT Active Condition [place] [id number]) Tear of left rotator Active Condition Feb 14 , [facility] cuff 2018 Entered WSTRN By: LUTHER KUMARI Comment: [facility] Ortho Type 2 diabetes Active Condition Feb 05, [facility] mellitus in obese 2019 Entered WSTRN By: LUTHER KUMARI Comment: Followed by Drs. Jhaveri/Mark , [facility] September 20, 2018 Entered By: LUTHER KRUEGER Comment: complications of neuropathy Feb 18, 2020 Entered By: LUTHER KRUEGER Comment: 2019 A1c Sept - 8.7 COR ATHEROSCL UNSP Inactive Condition 03/08/2006 [place] TYP-VES Tobacco Use Disorder, Inactive Condition 12/26/2005 [facility] Continuous [facility]N MANDI Lomax [place] Diagnosis: ICD-10-CM Active Diagnosis [place] F43.10 Post-traumatic stress disorder, unspecifiedwith Provider Comments: Posttraumatic stress disorder ([facility] [id number]) Diagnosis: ICD-10-CM Active Diagnosis [place] F32.9 Major depressive disorder, single episode, unspecifiedwith Provider Comments: Depression ([facility] [id number]) Diagnosis: ICD-10-CM Active Diagnosis [place] I10 Essential (primary) hypertensionwith Provider Comments: Essential hypertension ([facility] [id number]) Diagnosis: ICD-10-CM Active Diagnosis [place] [facility] Z46.1 Encounter for WSTRN fitting and adjustment [place] of hearing aidwith H CS Provider Comments: Encounter for Fitting and Adjustment of Hearing Aid Diagnosis: ICD-10-CM Active Diagnosis [facility] M21.371 Foot drop, W STRN right footwith [facility] DEJAN Provider Comments: H CS Foot Drop, right Foot Diagnosis: ICD-10-CM Active Diagnosis [place] M54.16 Radiculopathy, lumbar regionwith Provider Comments: Radiculopathy, Lumbar Region Diagnosis: ICD-10-CM Active Diagnosis [place] F43.10 Post-traumatic stress disorder, unspecifiedwith Provider Comments: Post-Traumatic Stress Disorder, unspecified Diagnosis: ICD-10-CM Active Diagnosis [place] G47.00 Insomnia, unspecifiedwith Provider Comments: Insomnia ([facility] [id number]) Diagnosis: ICD-10-CM Active Diagnosis [facility] F43.12 Post-traumatic WSTRN stress disorder, [place] chronicwith Provider HCS Comments: Post-Traumatic Stress Disorder, Chronic Diagnosis: ICD-10-CM Active Diagnosis [place] R51.9 Headache, unspecifiedwith Provider Comments: Headache, unspecified Diagnosis: ICD-10-CM Active Diagnosis [place] H90.[address] [facility] loss, [facility] bilateralwith Provider Comments: Sensorineural hearing loss, bilateral Diagnosis: ICD-10-CM Active Diagnosis [place] [facility] E11.9 Type 2 diabetes WSTRN mellitus without [place] complicationswith HC S Provider Comments: DM Type 2 w/o Complications Diagnosis: ICD-10-CM Active Diagnosis [place] [facility] H90.3 Sensorineural WSTRN hearing loss, [place] bilateralwith Provider HCS Comments: Sensorineural Hearing Loss, Bilateral Diagnosis: ICD-10-CM Active Diagnosis [place] E11.9 Type 2 diabetes mellitus without complicationswith Provider Comments: Type 2 diabetes mellitus in obese ([facility] [id number]) Diagnosis: ICD-10-CM Active Diagnosis [place] R26.89 Other abnormalities of gait and mobilitywith Provider Comments: Other Abnormalities of Gait and Mobility Diagnosis: ICD-10-CM Active Diagnosis [place] M25.569 Pain in unspecified kneewith Provider Comments: Pain in unspecified Knee Diagnosis: ICD-10-CM Active Diagnosis [place] G47.33 Obstructive H CS sleep apnea (adult) (pediatric)with Provider Comments: Obstructive Sleep Apnea Diagnosis: ICD-10-CM Active Diagnosis [facility] G47.33 Obstructive W STRN sleep apnea (adult) [place] (pediatric)with [facility] Provider Comments: Obstructive Sleep Apnea (Adult) (Pediatric) Diagnosis: ICD-10-CM Active Diagnosis [place] [facility] Z02.89 Encounter for WSTRN other administrative [place] examinationswith HCS Provider Comments: Nesg-lu-Thpq Examination (C&P/SHA) Diagnosis: ICD-10-CM Active Diagnosis [place] F43.10 Post-traumatic stress disorder, unspecifiedwith Provider Comments: Diagnosis: ICD-10-CM Active Diagnosis [place] H40.9 Unspecified CB OC glaucomawith Provider Comments: Unspecified Glaucoma Diagnosis: ICD-10-CM Active Diagnosis [place] [facility] Z04.89 Encounter for WSTRN examination and [place] observation for oth HCS reasonswith Provider Comments: Encounter & Observation for Oth Spec Reason Medications Combined list of outpatient medications from Department of Defense and Veterans Affairs facilities. Medications provided include 1) outpatient medications from the last 15 months, and 2) patient-reported medications. Medication Details Route Status Patient Prescription Prescription Last Ordering Order Source Instructions Expires Number Dispense Provider Date Date AMLODIPINE TAKE ONE ORAL ACTIVE ANDREW,D BESYLATE TABLET AVID A 2021 IELD 10MG TAB BY MOUTH QD APAP TAKE 1 ORAL 08/06/2021 [id number] NADAZDIN- springF 250MG/ASA TABLET 2 2021 IELD 250MG/CAFN BY MOUTH OGNJENKA 65MG TAB ONCE M DAILY NEEDED FOR HEADACHE ASPIRIN TAKE ONE ORAL ACTIVE RICK, INGF 81MG TAB,EC TABLET LINDY Lomax 2005 IELD BY MOUTH ATORVASTATI TAKE ONE ORAL ACTIVE 12/10/2022 [id number] K YLE,ANNM N CA 80MG TABLET 2 SHASHI 2021 IELD TAB BY MOUTH ONCE DAILY FOR CHOLESTE ROL ATORVASTATI TAKE ONE ORAL DISCONT 09/22/2021 [id number] NADAZDIN- springF N CA 80MG TABLET INUED 2 2020 IELD TAB BY MOUTH OGNJENKA ONCE M DAILY FOR CHOLESTE ROL BACLOFEN TAKE ONE ORAL ACTIVE 05/29/2021 [id number] NADAZDIN - 03/01/ [place] 10MG TAB TABLET 1 2020 IELD BY MOUTH OGNJENKA ONCE M DAILY FOR MUSCLE RIGIDITY BETAMETHASO APPLY A TOPICA ACTIVE 02/16/2022 [id number] NA DAZDIN- 02/24/ [place] NE THIN LLY 2 2020 IELD DIPROPIONAT LAYER OGNJENKA E 0.05% TOPICALL M CREAM,TOP Y TWICE DAILY FOR ITCHING/ RASH BETAMETHASO APPLY A TOPICA DISCONT 01/23/2021 [id number] P ASTRANA, 01/22/ [place] THIN LLY INUE 1 APOLINARI 2019 IELD DIPROPIONAT LAYER O E 0.05% TOPICALL CREAM,TOP Y TWICE DAILY FOR ITCHING/ RASH BETAMETHASO APPLY A TOPICA ACTIVE YURY 09/19/ [place] NE SMALL LLY -EJ, 2017 CNTRL DIPROPIONAT AMOUNT MARTIN M WSTR N E 0.05% TOPICALL [place] CREAM,TOP Y TWICE SETS DAILY HCS BIMATOPROST INSTILL EACH ACTIVE 06/19/2022 [id number] CHADD LL,K 06/25/ [place] 0.01% 1 DROP EYE 2 IMBERLY 2021 CNTRL SOLN,OPH INTO WSTRN EACH EYE [place] AT SETS BEDTIME HCS TO REDUCE PRESSURE IN THE EYE BIMATOPROST INSTILL EACH DISCONT 08/15/2021 [id number] CHADD LL,K 08/18/ [place] 0.01% 1 DROP EYE INUE 2 IMBERLY 2020 CNTRL SOLN,OPH INTO WSTRN EACH EYE [place] AT SETS BEDTIME HCS TO REDUCE PRESSURE IN THE EYE BRIMONIDINE INSTILL LEFT ACTIVE 06/19/2022 [id number] CHADD LL,K 08/18/ [place] TARTRATE 1 DROP EYE 2 IMBERLY 2021 CNTRL 0.2%/TIMOLO INTO THE WSTRN L MALEATE LEFT EYE [place] 0.5% TWICE SETS SOLN,OPH DAILY HCS BRIMONIDINE INSTILL LEFT DISCONT 08/21/2021 [id number] CHADD LL,K 08/21/ [place] TARTRATE 1 DROP EYE INUE 2 IMBERLY 2020 CNTRL 0.2%/TIMOLO INTO THE WSTRN L MALEATE LEFT EYE [place] 0.5% TWICE SETS SOLN,OPH DAILY HCS CARBOXYMETH INSTILL EACH ACTIVE 06/19/2022 [id number] KRUSEL L,K YLCELLULOSE 1 DROP EYE 2 IMBERLY 2021 CNTRL NA 0.5% INTO WSTRN SOLN,OPH EACH EYE [place] TWICE SETS DAILY HCS CHOLECALCIF TAKE ONE ORAL ACTIVE 04/22/2022 [id number] NADAZ DIN- MYNOR 25MCG TABLET 2 2020 IELD (1,000UNIT) BY MOUTH CLARYJESINDY TAB ONCE M DAILY FOR VITAMIN SUPPLEME NTATION COAL TAR APPLY TOPICA 12/24/2020 [id number] PATI , 7.5% SMALL LLY 1 APOLINARI 2019 CNTRL EMULSION,TO AMOUNT O WSTRN P TO [place] TOPICALL SETS Y TWICE HCS DAILY COAL TAR APPLY TOPICA ACTIVE YURY 7.5% SMALL L -EJ, 2017 CNTRL EMULSION,TO AMOUNT MARTIN M WSTR N P TO [place] TOPICALL SETS Y TWICE HCS DAILY CYCLOSPORIN INSTILL EACH ACTIVE 12/21/2022 [id number] HURLE Y,YARELI E 0.05% 1 DROP EYE 2 HN 2021 IELD (PF) INTO EMULSION,OP EACH EYE H,0.4ML TWICE DAILY CYCLOSPORIN INSTILL EACH DISCONT 10/24/2021 [id number] M ICHAELS, E 0.05% 1 DROP EYE INUED 2 NYLA J 2020 IELD (PF) INTO EMULSION,OP EACH EYE H,0.4ML TWICE DAILY DULAGLUTIDE INJECT SUBCUT ACTIVE NADAZDIN- 3MG/0.5ML 3MG ANEOUS 2021 IELD INJ,SOLN,PE SUBCUTAN OGNJENKA N EOUSLY M ONCE A WEEK DULOXETINE TAKE ORAL DISCONT 08/17/2022 [id number] TREE ,S HCL 30MG THREE INUED 2 TEPHEN G 2021 IELD CAP,EC CAPSULES (EDIT) BY MOUTH ONCE DAILY FOR MOOD DULOXETINE TAKE ORAL DISCONT 04/14/2022 [id number] TREE ,S HCL 30MG THREE INUED 2 2020 IELD CAP,EC CAPSULES BY MOUTH ONCE DAILY FOR MOOD DULOXETINE TAKE ORAL DISCONT 12/19/2021 [id number] LEAVITT ,S HCL 30MG THREE INUE 1 2020 IELD CAP,EC CAPSULES BY MOUTH ONCE DAILY FOR MOOD DULOXETINE TAKE ORAL DISCONT 09/18/2021 [id number] LEAVITT ,S HCL 30MG THREE INUE 1 2020 IELD CAP,EC CAPSULES BY MOUTH ONCE DAILY FOR MOOD DULOXETINE TAKE TWO ORAL 01/12/2022 [id number] MURAJENDRA ER,S HCL 30MG CAPSULES 2 2021 IELD CAP,EC BY MOUTH ONCE DAILY FOR 14 DAYS, THEN TAKE ONE CAPSULE ONCE DAILY FOR 14 DAYS FOR MOOD DISCONTI NUE AFTER COMPLETE TAPER; KEEP AT WINDOW FENOFIBRATE TAKE ORAL ACTIVE RICK, RINGF TAB 54MG BY LINDY Lomax 2011 IELD MOUTH DAILY FUROSEMIDE TAKE ONE ORAL ACTIVE NADAZDIN- 40MG TAB TABLET [id number] IELD BY MOUTH OGNJENKA TWICE M DAILY GLUCOSE 4GM CHEW ORAL ACTIVE 04/22/2022 [id number] NADAZDIN - TAB,CHEW FOUR 2 [id number] IELD TABLETS OGNJENKA BY MOUTH M 15 MIN NEEDED FOR LOW BLOOD SUGAR (<70MG/D L), RECHECK SUGAR LEVEL IN 15 MINUTES AND IF <70, TAKE ANOTHER 4 TABLET FOR LOW BLOOD SUGAR (<70MG/D L), RECHECK SUGAR LEVEL IN 15 MINUTES AND IF <70, TAKE ANOTHER 4 TABLET INSULIN NPH INJECT SUBCUT ACTIVE 01/08/2023 [id number] YARELI GARCES HUMAN 100 25 UNITS ANEOUS 2 HN 2021 IELD U/ML INJ 100UNIT/ NOVOLIN N ML SUBCUTAN EOUSLY EVERY DAY AND INJECT 38 UNITS 100UNIT/ ML AT BEDTIME FOR DIABETES PRESCRIB ER : DR. CHAPIN LEE INSULIN NPH INJECT SUBCUT DISCONT 07/08/2022 [id number] AZDIN- HUMAN 100 25 UNITS ANEOUS INUED 2 2021 IE LD U/ML INJ 100UNIT/ OGNJENKA NOVOLIN N ML M SUBCUTAN EOUSLY EVERY DAY AND INJECT 38 UNITS 100UNIT/ ML AT BEDTIME FOR DIABETES PRESCRIB ER : DR. CHAPIN LEE INSULIN NPH INJECT SUBCUT DISCONT 03/27/2022 [id number] NA RODO- HUMAN 100 25 UNITS ANEOUS INUED 1 2020 IE LD U/ML INJ SUBCUTAN (EDIT) OGNJENKA NOVOLIN N EOUSLY M EVERY DAY AND INJECT 45 UNITS AT BEDTIME FOR DIABETES PRESCRIB ER : DR. CHAPIN LEE INSULIN NPH INJECT SUBCUT DISCONT 02/06/2021 [id number] PAS TRANA, HUMAN 100 25 UNITS ANEOUS INUE 1 2019 IE LD U/ML INJ SUBCUTAN O NOVOLIN N EOUSLY EVERY DAY AND INJECT 45 UNITS AT BEDTIME FOR DIABETES PRESCRIB ER : DR. CHAPIN LEE INSULIN,ASP INJECT SUBCUT ACTIVE 01/08/2023 [id number] YARELI GARCES ART,HUMAN 10-12 ANEOUS 2021 IELD 100 UNT/ML UNITS INJ SUBCUTAN EOUSLY EVERY MORNING 30 MINUTES BEFORE BREAKFAS T NEEDED AND INJECT 25-28 UNITS EVERY EVENING INSULIN,ASP INJECT SUBCUT DISCONT 07/08/2022 [id number] NAD AZDIN- ART,HUMAN 10-12 ANEOUS INUED 2 2021 IELD 100 UNT/ML UNITS OGNJENKA INJ SUBCUTAN M EOUSLY EVERY MORNING 30 MINUTES BEFORE BREAKFAS T NEEDED AND INJECT 25-28 UNITS EVERY EVENING INSULIN,ASP INJECT SUBCUT DISCONT 07/23/2021 [id number] PAS TRANA, ART,HUMAN 10 UNITS ANEOUS INUED 2 2020 CN TRL 100 UNT/ML SUBCUTAN (EDIT) O WSTRN INJ EOUSLY [place] EVERY SETS MORNING HCS 30 MINUTES BEFORE BREAKFAS T NEEDED AND INJECT 15 UNITS EVERY EVENING [place] TAKE ONE ORAL ACTIVE YURY 06/17/ [place] 50MG TAB TABLET -2016 CNTRL BY MOUTH MARTIN MCGOVERN [place] SETS HCS [place] TAKE ONE ORAL ACTIVE YURY VA POTASSIUM TABLET -2016 CNTRL 100MG TAB BY MOUTH MARTIN AMBROSIOTR N DAILY [place] SETS HCS MELATONIN TAKE ONE ORAL DISCONT 04/14/2022 [id number] Monie GARCIA 3MG CAP/TAB CAPSULE/ INUED 1 TEPHEN G 2020 IE LD TABLET BY MOUTH AT BEDTIME NEEDED INSOMNIA METOPROLOL TAKE ONE ORAL ACTIVE 06/18/2022 [id number] NADAZD IN SUCCINATE TABLET 2 2021 IELD 200MG BY MOUTH OGNJENKA TAB,SA ONCE M DAILY FOR BLOOD PRESSURE /HEART METOPROLOL TAKE 1 ORAL DISCONT 09/22/2021 [id number] NADAZD IN TARTRATE TABLET(S INUED 1 2020 IELD 50MG TAB ) BY OGNJENKA MOUTH M TWICE DAILY MIRTAZAPINE TAKE ONE ORAL DISCONT 12/19/2021 [id number] Monie ANDERSON 15MG TAB AND INUED 1 TEPHEN G 2020 IELD ONE-HALF (EDIT) TABLETS BY MOUTH AT BEDTIME FOR DEPRESSI ON/MOOD MIRTAZAPINE TAKE ONE ORAL DISCONT 02/13/2022 [id number] Monie ANDERSON 30MG TAB TABLET INUED 1 TEPHEN G 2020 IELD BY MOUTH AT BEDTIME FOR DEPRESSI ON/MOOD NALOXONE INSTILL ONE 07/16/2021 [id number] Monie LEAVITT HCL 1 SPRAY NOSTRI 2 TEPHEN G 2021 IELD 4MG/SPRAY ONE L SOLN,SPRAY, NOSTRIL NASAL ONE TIME NEEDED FOR SUSPECTE D OPIOID OVERDOSE . CALL 911 WITH ADMINIST RATION. REPEAT WITH SECOND DEVICE IF SYMPTOMS RETURN OMEPRAZOLE TAKE TWO ORAL ACTIVE 04/14/2022 [id number] NADAZ DIN- 20MG CAP,EC CAPSULES 2 2020 I ELD BY MOUTH OGNJENKA EVERY M MORNING 30 MINUTES BEFORE BREAKFAS T OMEPRAZOLE TAKE TWO ORAL DISCONT 02/23/2021 [id number] N ADAZDIN- springF 20MG CAP,EC CAPSULES INUE 1 2019 I ELD BY MOUTH OGNJENKA EVERY M MORNING 30 MINUTES BEFORE BREAKFAS T OXYCODONE TAKE ONE ORAL ACTIVE YURY 06/17/ V A HCL TABLET -[id number] CNTRL 5MG/ACETAMI BY MOUTH MARTIN AMBROSIO TRN NOPHEN Q4-6H [place] 325MG TAB PRN SETS HCS ROPINIROLE TAKE ONE ORAL ACTIVE YURY 06/17/ HCL 3MG TAB TABLET -[id number] CNT RL BY MOUTH MARTIN AMBROSIOTRN [place] SETS HCS TIMOLOL INSTILL ACTIVE RICK, I NGF MALEATE 1 DROP LINDY Lomax 2011 IELD 0.5% OD DAILY SOLN,OPH TRAZODONE TAKE ORAL ACTIVE 01/20/2023 [id number] LEAVITT,S HCL 50MG ONE-HALF 2 TEP2021 IELD TAB TABLET BY MOUTH AT BEDTIME NEEDED FOR INSOMNIA , MAY TAKE WHOLE TABLET IF NEEDED FOR SLEEP. TRIAMCINOLO APPLY A TOPICA ACTIVE 10/07/2021 [id number] NAD AZDIN- NE THIN LLY 2 2020 IELD ACETONIDE LAYER OGNJENKA 0.1% TOPICALL M CREAM,TOP Y ONCE DAILY NEEDED VITAMIN E TAKE 1 ORAL ACTIVE RICK, INGF 200UNT CAP CAPSULE LINDY Lomax 2005 IELD BY MOUTH EVERY DAY VORTIOXETIN TAKE ONE ORAL ACTIVE 01/20/2023 [id number] TOMASZ PUCKETT,S E 10MG TAB TABLET 2 TEPHEN 2021 IELD BY MOUTH ONCE DAILY VORTIOXETIN TAKE ONE ORAL DISCONT 12/14/2022 [id number] Monie ANDERSON E 5MG TAB TABLET INUED 2 TEPHEN 2021 IELD BY MOUTH (EDIT) ONCE DAILY Allergies, Adverse Reactions, Alerts Combined list of allergies from Department of Defense and Veterans Affairs facilities. It does not include entries that were removed or entered in error. Substance Category Reaction Severity Reaction Status Date Comments S ource type Reported BIMATOPROST Propensity Propensity active [facility] to adverse to adverse 1 [facility] TRN reactions reactions [place] to drug to drug ETS HCS (finding) (finding) BRIMONIDINE Propensity Propensity active [facility] to adverse to adverse 1 [place] TRN reactions reactions [place] to drug to drug ETS HCS (finding) (finding) NAPROSYN Propensity Renal Propensity active [facility] to adverse failure to adverse 1 WS TRN reactions syndrome reactions [place] to drug to drug ETS HCS (finding) (finding) SULFUR Propensity Eruption Propensity active [facility] to adverse to adverse 8 WS TRN reactions reactions [place] to drug to drug ETS HCS (finding) (finding) TIMOLOL Propensity Propensity active [facility] to adverse to adverse 1 WS TRN reactions reactions [place] to drug to drug ETS HCS (finding) (finding) Immunizations Combined list of available immunizations from the Department of Defense and Veterans Affairs facilities. Immunization Series Date Administered Site Reaction Lot CVX Drug [facility] atus Comments Source Given By Number Code Franchise Broker COVID-19 2 complet [facility] (PFIZER), 2020 ed CNTR L MRNA, LNP-S, [place] PF, 30 [place] MCG/0.3 ML SET S DOSE HCS COVID-19 1 complet [facility] (PFIZER), 2020 ed CNTR L MRNA, LNP-S, W STRN PF, 30 [place] MCG/0.3 ML SET S DOSE HCS INFLUENZA, complet Site: [facility] INJECTABLE, 2018 ed Right CN TRL QUADRIVALENT, Deltoi d WSTRN PRESERVATIVE M ASSCHU FREE SETS HCS ZOSTER 1 complet [facility] RECOM[facility]ANT 2018 ed CN TRL W[facility]N [place] [facility]S HCS INFLUENZA, complet Site: [facility] INJECTABLE, 2018 ed Left IE LD QUADRIVALENT Deltoid ZOSTER 2 complet [facility] RECOMBINANT 2017 ed CN TRL WSTRN [place] SETS HCS INFLUENZA, complet Site: [place] SEASONAL, 2017 ed Left CNTR L INJECTABLE Deltoid W STRN [place] SETS HCS TD (ADULT), 2 complet Sit e: [place] LF TETANUS 2016 ed Right IEL D TOXOID, Deltoid PRESERVATIVE FREE, ADSORBED PNEUMOCOCCAL complet [place] POLYSACCHARID 2016 ed IELD E PPV23 FLU,[address] Vidal Medrano (HISTORICAL) 2015 ed mike s CNTR[facility] WSTR N MA [place] SETS HCS ZOSTER complet Proximal S [place] (SHINGLES) 2015 ed Left Arm IELD (HISTORICAL) PNEUMOCOCCAL complet [place] CONJUGATE PCV 2015 ed IELD 13 FLU,3 YRS complet outside [facility] (HISTORICAL) 2014 ed pcp C NTRL WSTRN [place] [facility] HCS FLU,3 YRS complet outside [facility] (HISTORICAL) 2013 ed pcp C NTRL [facility] [place] [facility] FLU,3 YRS complet V A (HISTORICAL) 2012 ed C NTRL [facility] [place] [facility] FLU,3 YRS complet V A (HISTORICAL) 2011 ed C NTRL [facility] [place] [facility]CS FLU,3 YRS complet V A (HISTORICAL) 2010 ed C NTRL [facility] [place] [facility] HCS DTAP, complet Site: [place] UNSPECIFIED 2010 ed Left IE LD FORMULATION Deltoid FLU,3 YRS complet V A (HISTORICAL) 2009 ed C NTRL WSTRN [place] [facility] HCS NOVEL complet [employer] SPRI NGF INFLUENZA-H1N 2009 ed Pasteu r IELD 1-09, ALL FORMULATIONS FLU,3 YRS complet V A (HISTORICAL) 2008 ed C NTRL W[facility]N [place] [facility] HCS PNEUMOCOCCAL, complet Whi le he BAYSTAT UNSPECIFIED 2008 ed was an E FORMULATION [facility] FLU,3 YRS complet Site: S [place] (HISTORICAL) 2008 ed Left I ELD Deltoid FLU,3 YRS complet Site: S [place] (HISTORICAL) 2006 ed Left I ELD Deltoid FLU,3 YRS complet S [place] (HISTORICAL) 2005 ed I ELD FLU VACCINE complet [place] (HISTORICAL) 2004 ed I ELD FLU,3 YRS 04/02/ KYEMIRTHA CORDOBA 88 complet [place] (HISTORICAL) 2003 G ed I ELD FLU,3 YRS 06/02/ ERIN HANKS 88 complet [place] (HISTORICAL) 2003 NN H ed I ELD PNEUMOCOCCAL, 04/11/ KYEMIRTHA CORDOBA 109 com plet [place] UNSPECIFIED 1999 G ed IE LD FORMULATION FLU,3 YRS 03/10/ PRABHJOT MIJARES 88 complet [place] (HISTORICAL) 1999 Y P PA ed IELD Results Combined list of recent chemistry, hematology and other laboratory results from Department of Defense and Veterans Affairs, ranging from 15 months to all on record, depending upon the facility. Order Results Value Reference Date Interpretation Specimen Commen ts Source Name Range MAGNESIUM MAGNESIUM 1.8 1.6 - 2.6 01/14 Specimen T ype: SERUM [place] [MASS/ /2021 No comment e ntered. LD E] IN SERUM Ordering Pr ovider: BAM ANDREW OR PLASMA Report [facility] ed Date/Time: Dec 14, 2021 03:11 PM Reporting Lab: [facility] [address] [address] Performing Lab: [facility] [address] [address] CALCIUM CALCIUM 8.8 8.5 - 10.2 01/14 Specimen Type : SERUM [place] [MASS/ /2021 No comment e ntered. LD E] IN SERUM Ordering Pr ovider: BAM ANDREW OR PLASMA Report Rele ed Date/Time: Dec 14, 2021 03:11 PM Reporting Lab: [facility] [address] [address] Performing Lab: [facility] [address] [address] HEMOGLOBI HEMOGLOBIN 9.8 4.0 - 5.6 01/14 H Specimen Type: BLOOD [place] N A1C A1C/HEMOGLO /2021 Comment: Va lues obtained from A1C measurements can vary. For typical A1C assays, a reported value of 7.0 could actually be between 6.72 and 7.28 if measured by a reference method. A reported value of 9 LD PANEL BIN.TOTAL .0 could actua lly be between 8.73 and 9.27. Ref: [email or web address] IN BLOOD BY Ordering Pr ovider: BAM ANDREW HPLC Report Released Date/Time: Dec 14, 2021 03:11 PM Reporting Lab: [address] [address] Performing Lab: [facility] [address] [address] VITAMIN D 25-HYDROXYV 14 20 - 50 01/14 L Specimen T ype: SERUM [place] (25-[place]) ITAMIN D3 /2021 No comment ent ered. LD [MASS/VOLUM Ordering Pr ovider: BAM ANDREW E] IN SERUM Report Rele ased Date/Time: Dec 14, 2021 03:11 PM OR PLASMA Reporting Lab : [address] [address] Performing Lab: [address] [address] SED RATE, ERYTHROCYTE 20 0 - 20 01/14 Specimen T ype: BLOOD [place] AUTOMATED SEDIMENT /2021 No comment entered. LD ON RATE BY Ordering Pro vider: BAM ANDREW [facility] Report Relea sed Date/Time: Dec 14, 2021 03:11 PM METHOD Reporting Lab: [address] [address] Performing Lab: [address] [address] TSH THYROTROPIN 1.47 0.35 - 01/14 Specimen Typ e: SERUM [place] [UNITS/VOLU 5.00 No comment e ntered. LD ME] IN Ordering Provid er: BAM ANDREW SERUM OR Report Release d Date/Time: Dec 14, 2021 03:11 PM PLASMA Reporting Lab: [address] [address] Performing Lab: [facility] [address] [address] LIVER PROTEIN 6.1 6.0 - 8.3 01/14 Specimen Type: SERUM [place] FUNCTION [MASS/VOLUM /2021 No comment entered. LD E] IN SERUM Ordering Pr ovider: BAM ANDREW OR PLASMA Report Releas ed Date/Time: Dec 14, 2021 03:11 PM Reporting Lab: [facility] [place] [facility] [address] [address] Performing Lab: [place] [facility] [place] [facility] [address] [address] LIVER ALBUMIN 2.9 3.5 - 5.0 01/14 L Specimen Type: SERUM [place] FUNCTION [MASS/VOLUM /2021 No comment entered. LD E] IN SERUM Ordering Pr ovider: BAM ANDREW OR PLASMA Report Releas ed Date/Time: Dec 14, 2021 03:11 PM Reporting Lab: [facility] [address] Performing Lab: [facility] [place] [address] [address] LIVER ALKALINE 49 40 - 150 01/14 Specimen Type: SERUM [place] FUNCTION PHOSPHATASE No comment entered. LD [ENZYMATIC Ordering Pro vider: BAM ANDREW ACTIVITY/VO Report Rele ased Date/Time: Dec 14, 2021 03:11 PM LUME] IN Reporting Lab: [facility] SERUM OR [address] [place] [id number] PLASMA Performing Lab: [facility] [place] [address] [address] LIVER ASPARTATE 14 5 - 34 01/14 Specimen Type: SERUM [place] FUNCTION AMINOTRANSF /2021 No comment entered. LD ERASE Ordering Provid er: BAM ANDREW [ENZYMATIC Report Relea sed Date/Time: Dec 14, 2021 03:11 PM ACTIVITY/VO Reporting L ab: [facility] IN [address] [place] [address] SERUM OR Performing Lab : [place] [facility] PLASMA [address] [address] LIVER ALANINE 12 6 - 55 01/14 Specimen Type: S AB [place] FUNCTION AMINOTRANSF /2021 No comment entered. LD ERASE Ordering Provid er: BAM ANDREW [ENZYMATIC Report Relea sed Date/Time: Dec 14, 2021 03:11 PM ACTIVITY/VO Reporting L ab: [facility] [place] IN [address] [address] SERUM OR Performing Lab : [facility] PLASMA [address] [address] LIVER BILIRUBIN.T 0.4 0.2 - 1.2 01/14 Specimen T ype: SERUM [place] FUNCTION OTAL /2021 No comment ente red. LD [MASS/VOLUM Ordering Pr ovider: BAM ANDREW] IN SERUM Report Rele ased Date/Time: Dec 14, 2021 03:11 PM OR PLASMA Reporting Lab : [facility] [place] [address] [address] Performing Lab: [address] [address] LIPID CHOLESTEROL 180 7 - 199 01/14 Specimen Typ e: [place] PANEL [MASS/VOLUM /2021 No comment e ntered. LD FASTING E] IN SERUM Ordering Pr ovider: BAM ANDREW OR PLASMA Report Releas ed Date/Time: Dec 14, 2021 03:11 PM Reporting Lab: [facility] [place] [address] [address] Performing Lab: [facility] [address] [address] LIPID TRIGLYCERID 132 0 - 150 01/14 Specimen Typ e: [facility]UM [place] PANEL E /2021 No comment enter ed. LD FASTING [MASS/VOLUM Ordering Pr ovider: BAM ANDREW] IN SERUM Report Rele ased Date/Time: Dec 14, 2021 03:11 PM OR PLASMA Reporting Lab : [address] [address] Performing Lab: [facility] [address] [address] LIPID CHOLESTEROL 107 0 - 129 01/14 Specimen Typ e: [place]UM [place] PANEL IN LDL /2021 No comment enter ed. LD FASTING [MASS/VOLUM Ordering Pr ovider: BAM ANDREW] IN SERUM Report Rele ased Date/Time: Dec 14, 2021 03:11 PM OR PLASMA Reporting Lab : [facility] [place] BY [address] [address] CALCULATION Performing Lab: [address] [address] LIPID CHOLESTEROL 3.8 01/14 Specimen Typ e: [place] PANEL .TOTAL/CHOL /2021 No comment e ntered. LD FASTING ESTEROL IN Ordering Pro vider: BAM ANDREW HDL [MASS Report Releas ed Date/Time: Dec 14, 2021 03:11 PM RATIO] IN Reporting Lab : [facility] [place] SERUM OR [address] [address] PLASMA Performing Lab: [address] [address] LIPID CHOLESTEROL 47 40 - 60 01/14 Specimen Typ e: SERUM [place] PANEL IN HDL /2021 No comment enter ed. LD FASTING [MASS/VOLUM Ordering Pr ovider: BAM ANDREW] IN SERUM Report Rele ased Date/Time: Dec 14, 2021 03:11 PM OR PLASMA Reporting Lab : [address] [address] Performing Lab: [address] [address] BASIC UREA 18 7 - 25 01/14 Specimen Type: S AB [place] METABOLIC NITROGEN /2021 No comment en tered. LD PANEL [MASS/VOLUM Ordering Pr ovider: BAM ANDREW (fasting) E] IN SERUM Report Re leased Date/Time: Dec 14, 2021 03:11 PM OR PLASMA Reporting Lab : [address] [address] Performing Lab: [address] [address] BASIC GLUCOSE 165 65 - 100 09/ H Specimen Type: [place] METABOLIC [MASS/VOLUM /2021 No comment entered. LD PANEL E] IN SERUM Ordering Pr ovider: BAM ANDREW (fasting) OR PLASMA Report Rele ased Date/Time: Dec 14, 2021 03:11 PM Reporting Lab: [facility] [address] [address] Performing Lab: [facility] [address] [address] BASIC SODIUM 139 135 - 145 01/14 Specimen Type: [place] METABOLIC [MOLES/VOLU /2021 No comment entered. LD PANEL ME] IN Ordering Provid er: BAM ANDREW (fasting) SERUM OR Report Relea sed Date/Time: Dec 14, 2021 03:11 PM PLASMA Reporting Lab: [facility] [place] [address] [address] Performing Lab: [facility] [address] [address] BASIC POTASSIUM 4.1 3.5 - 5.0 01/14 Specimen Typ e: [place] METABOLIC [MOLES/VOLU No comment entered. LD PANEL ME] IN Ordering Provid er: BAM ANDREW (fasting) SERUM OR Report Relea sed Date/Time: Dec 14, 2021 03:11 PM PLASMA Reporting Lab: [facility] [address] [address] Performing Lab: [facility] [address] [address] BASIC CHLORIDE 105 100 - 110 01/14 Specimen Type : [place]UM [place] METABOLIC [MOLES/VOLU /2021 No comment entered. LD PANEL ME] IN Ordering Provid er: BAM ANDREW (fasting) SERUM OR Report Relea sed Date/Time: Dec 14, 2021 03:11 PM PLASMA Reporting Lab: [facility] [address] [address] Performing Lab: [facility] [address] [address] BASIC CARBON 27 20 - 30 01/14 Specimen Type: S AB [place] METABOLIC DIOXIDE, /2021 No comment en tered. LD PANEL TOTAL Ordering Provid er: BAM ANDREW (fasting) [MOLES/VOLU Report Re leased Date/Time: Dec 14, 2021 03:11 PM ME] IN Reporting Lab: [place] [facility] Cardiac GuardN GFRANQ [facility] SERUM OR [address] [address] PLASMA Performing Lab: [place] CompuPayRL Cardiac GuardTRN [place] [facility] [address] [address] BASIC CREATININE 1.59 0.50 - 09/ H Specimen Type : SERUM [place] METABOLIC [MASS/VOLUM 1.40 No comment entered. LD PANEL E] IN SERUM Ordering Pr ovider: BAM ANDREW (fasting) OR PLASMA Report Rele ased Date/Time: Dec 14, 2021 03:11 PM Reporting Lab: [facility] GuardTRN [place] [facility] [address] [address] Performing Lab: [facility] W[facility]N [place] [facility] [address] [address] BASIC GLOMERULAR 46 60 01/14 L Specimen Type : [place]UM [place] METABOLIC FILTRATION /2021 No comment entered. LD PANEL RATE/1.73 Ordering Prov ider: BAM ANDREW (fasting) SQ Report Releas ed Date/Time: Dec 14, 2021 03:11 PM M.PREDICTED Reporting L ab: [place] CompuPayR Cardiac GuardTRN [place] [facility] [VOLUME [address] [address] RATE/AREA] Performing L ab: [facility] Card[facility] GuardTRN [place] [facility] IN SERUM, [address] [facility] [address] PLASMA OR BLOOD BY CREATININE- BASED FORMULA (CKD-EPI) CBC AND LEUKOCYTES 7.22 4.50 - 01/14 Specimen Type : BLOOD [place] DIFF [#/VOLUME] 11.00 No comment en tered. LD (AUTO) IN BLOOD BY Ordering Pr ovider: BAM ANDREW AUTOMATED Report Releas ed Date/Time: Dec 14, 2021 03:11 PM COUNT Reporting Lab: [place] CompuPayRL Cardiac GuardTRN uPartsUSETS [facility] [address] [address] Performing Lab: [place] [facility] [place] [facility] [address] [address] CBC AND ERYTHROCYTE 4.58 4.23 - 09 Specimen Typ e: BLOOD [place] DIFF S 5.66 /2021 No comment enter ed. LD (AUTO) [#/VOLUME] Ordering Pro vider: BAM ANDREW IN BLOOD BY Report Rele ased Date/Time: Dec 14, 2021 03:11 PM AUTOMATED Reporting Lab : [place] [facility] [place] [facility] COUNT [address] [address] Performing Lab: [place] [facility] [place] [facility] [address] [address] CBC AND HEMOGLOBIN 13.4 12.8 - 17 01/14 Specimen Ty pe: BLOOD [place] DIFF [MASS/VOLUM /2021 No comment e ntered. LD (AUTO) E] IN BLOOD Ordering Pr ovider: BAM ANDREW Report Released Date/Time: Dec 14, 2021 03:11 PM Reporting Lab: [facility] [place] [facility] [address] [address] Performing Lab: [place] [facility] [place] [facility] [address] [address] CBC AND HEMATOCRIT 39.7 39.2 - 01/14 Specimen Type : BLOOD [place] DIFF [VOLUME 50.4 No comment enter ed. LD (AUTO) FRACTION] Ordering Prov ider: BAM ANDREW OF BLOOD BY Report Rele ased Date/Time: Dec 14, 2021 03:11 PM AUTOMATED Reporting Lab : [place] [facility] [place] [facility] COUNT [address] [address] Performing Lab: [place] [facility] [place] [facility] [address] [address] CBC AND MCV 86.7 82 - 99 01/14 Specimen Type: B LOOD [place] DIFF [ENTITIC /2021 No comment ente red. LD (AUTO) VOLUME] BY Ordering Pro vider: BAM ANDREW AUTOMATED Report Releas ed Date/Time: Dec 14, 2021 03:11 PM COUNT Reporting Lab: [place] [facility] [place] [facility] [address] [address] Performing Lab: [facility] [place] [facility] [address] [address] CBC AND MCHC 33.8 30.8 - 0909 Specimen Type: B LOOD [place] DIFF [MASS/VOLUM 35.1 No comment e ntered. LD (AUTO) E] BY Ordering Provid er: BAM ANDREW AUTOMATED Report Releas ed Date/Time: Dec 14, 2021 03:11 PM COUNT Reporting Lab: [facility] [place] [facility] [address] [address] Performing Lab: [facility]ITAL[facility] [address] [address] CBC AND PLATELETS 247 140 - 360 01/14 Specimen Typ e: BLOOD [place] DIFF [#/VOLUME] /2021 No comment en tered. LD (AUTO) IN BLOOD BY Ordering Pr ovider: BAM ANDREW AUTOMATED Report Releas ed Date/Time: Dec 14, 2021 03:11 PM COUNT Reporting Lab: [facility] [place] [facility] [address] [address] Performing Lab: [facility]ITALUSETS [facility] [address] [address] CBC AND ERYTHROCYTE 13.0 12.0 - 09 Specimen Typ e: BLOOD [place] DIFF DISTRIBUTIO 16.0 No comment e ntered. LD (AUTO) N WIDTH Ordering Provid er: BAM ANDREW [RATIO] BY Report Relea sed Date/Time: Dec 14, 2021 03:11 PM AUTOMATED Reporting Lab : [facility] [place] [facility] COUNT [address] [address] Performing Lab: [facility]ITAL[facility] [address] [address] CBC AND MONOCYTES 0.71 0.30 - 09 Specimen Type: BLOOD [place] DIFF [#/VOLUME] 1.10 No comment en tered. LD (AUTO) IN BLOOD BY Ordering Pr ovider: BAM ANDREW AUTOMATED Report Releas ed Date/Time: Dec 14, 2021 03:11 PM COUNT Reporting Lab: [facility] [place] [facility] [address] [address] Performing Lab: [place] [facility] [place] [facility] [address] [address] CBC AND MCH 29.3 26.2 - 09 Specimen Type: B LOOD [place] DIFF [ENTITIC 32.6 /2021 No comment ente red. LD (AUTO) MASS] BY Ordering Provi gonzales: BAM ANDREW AUTOMATED Report Releas ed Date/Time: Dec 14, 2021 03:11 PM COUNT Reporting Lab: [facility] [place] [facility] [address] [address] Performing Lab: [facility] [place] [facility] [address] [address] CBC AND NEUTROPHILS 48.5 01/14 Specimen Typ e: BLOOD [place] DIFF / No comment enter ed. LD (AUTO) LEUKOCYTES Ordering Pro vider: BAM ANDREW IN BLOOD BY Report Rele ased Date/Time: Dec 14, 2021 03:11 PM AUTOMATED Reporting Lab : [facility] [place] [facility] COUNT [address] [address] Performing Lab: [facility] [place] [facility] [address] [address] CBC AND LYMPHOCYTES 34.9 01/14 Specimen Typ e: BLOOD [place] DIFF / No comment enter ed. LD (AUTO) LEUKOCYTES Ordering Pro vider: BAM ANDREW IN BLOOD BY Report Rele ased Date/Time: Dec 14, 2021 03:11 PM AUTOMATED Reporting Lab : [facility] [place] [facility] COUNT [address] [address] Performing Lab: [facility] [place] [facility] [address] [address] CBC AND MONOCYTES/1 9.8 09 Specimen Typ e: BLOOD [place] DIFF No comment enter ed. LD (AUTO) LEUKOCYTES Ordering Pro vider: BAM ANDREW IN BLOOD BY Report Rele ased Date/Time: Dec 14, 2021 03:11 PM AUTOMATED Reporting Lab : [place] [facility] [place] [facility] COUNT [address] [address] Performing Lab: [facility] [place] [facility] [address] [address] CBC AND EOSINOPHILS 5.8 01/14 Specimen Typ e: BLOOD [place] DIFF /100 No comment enter ed. LD (AUTO) LEUKOCYTES Ordering Pro vider: BAM ANDREW IN BLOOD BY Report Rele ased Date/Time: Dec 14, 2021 03:11 PM AUTOMATED Reporting Lab : [facility] [place] [facility] [address] [address] Performing Lab: [facility] [place] [facility] [address] [address] CBC AND BASOPHILS/1 0.7 01/14 Specimen Typ e: BLOOD [place] DIFF No comment enter ed. LD (AUTO) LEUKOCYTES Ordering Pro vider: BAM ANDREW IN BLOOD BY Report Rele ased Date/Time: Dec 14, 2021 03:11 PM AUTOMATED Reporting Lab : [facility] [place] [facility] COUNT [address] [address] Performing Lab: [facility] [place] [facility] [address] [address] CBC AND NEUTROPHILS 3.50 2.20 - 01/14 Specimen Typ e: BLOOD [place] DIFF [#/VOLUME] 7.60 No comment en tered. LD (AUTO) IN BLOOD BY Ordering Pr ovider: BAM ANDREW AUTOMATED Report Releas ed Date/Time: Dec 14, 2021 03:11 PM COUNT Reporting Lab: [facility] [place] [facility] [address] [address] Performing Lab: [facility] [place] [facility] [address] [address] CBC AND LYMPHOCYTES 2.52 1.00 - 01/14 Specimen Typ e: BLOOD [place] DIFF [#/VOLUME] 3.20 No comment en tered. LD (AUTO) IN BLOOD BY Ordering Pr ovider: BAM ANDREW AUTOMATED Report Releas ed Date/Time: Dec 14, 2021 03:11 PM COUNT Reporting Lab: [facility] [place] [facility] [address] [address] Performing Lab: [facility] [address] [address] CBC AND EOSINOPHILS 0.42 0.03 - 09 Specimen Typ e: BLOOD [place] DIFF [#/VOLUME] 0.44 /2021 No comment en tered. LD (AUTO) IN BLOOD BY Ordering Pr ovider: BAM ANDREW AUTOMATED Report Releas ed Date/Time: Dec 14, 2021 03:11 PM COUNT Reporting Lab: [facility] [address] [address] Performing Lab: [address] [address] CBC AND BASOPHILS 0.05 0.01 - 01/14 Specimen Type: BLOOD [place] DIFF [#/VOLUME] 0.13 No comment en tered. LD (AUTO) IN BLOOD BY Ordering Pr ovider: BAM ANDREW AUTOMATED Report Releas ed Date/Time: Dec 14, 2021 03:11 PM COUNT Reporting Lab: [address] [address] Performing Lab: [address] [address] CBC AND IMMATURE 0.3 01/14 Specimen Type: BLOOD [place] DIFF GRANULOCYTE /2021 No comment e ntered. LD (AUTO) S/100 Ordering Provid er: BAM ANDREW LEUKOCYTES Report Relea sed Date/Time: Dec 14, 2021 03:11 PM IN BLOOD BY Reporting L ab: [facility] [place] AUTOMATED [address] [facility] [address] COUNT Performing Lab: [facility] [address] [address] CBC AND IMMATURE 0.02 0.00 - 01/14 Specimen Type: BLOOD [place] DIFF GRANULOCYTE 0.06 /2021 No comment e ntered. LD (AUTO) S Ordering Provid er: BAM ANDREW [#/VOLUME] Report Relea sed Date/Time: Dec 14, 2021 03:11 PM IN BLOOD Reporting Lab: [facility] [place] [facility] [address] [address] Performing Lab: [facility] [address] [address] Vital Signs Combined list of inpatient and outpatient Vital Signs from Department of Defense and Veterans Affairs, ranging from 12 months to all on record, depending upon the facility. Vital Sign Value Date Comments Source SYSTOLIC BLOOD PRESSURE 165 12/14/2021 14:15:38 [facility] DIASTOLIC BLOOD PRESSURE 75 12/14/2021 14:15:38 [facility] PULSE OXIMETRY 97% 12/14/2021 14:15:38 [facility] TEMPERATURE 97.2 12/14/2021 14:15:38 [facility] E[facility] PULSE 73 12/14/2021 14:15:38 [facility] RESPIRATION 16 12/14/2021 14:15:38 [facility] ELD Encounters Combined list of: 1) Encounters from Department of Veterans Affairs facilities going back up to the last 18 months. 2) Encounters from the Department of Defense facilities going back up to 280 months. Location Location Encounter Encounter Reason Attending ADM DC Stat us Disposition Source Details Type Number For Provider Date Date Visit Outpatient 18226-6.63 08/06 [id number] [facility] [facility] [place] [address]-7.63 Diagnos KELLER,IZ 08/07 [facility] DIG [id number] is: ABELA A CNTRL ASSMT&MGMT ICD-10- WSTRN 5-10 CM [place] Z04.89 SETS [facility] er for examina tion and observa tion for oth reasons
wi th Provide r Comment s: Encount er & Observa [place] [address]-1.63 Diagnos DEE,CHR 08/14 [facility] [id number] is: ISTINE F ER CBO C ASSMT&MGMT 47 ICD-10- 5-10 CM H40.9 Unspeci fied glaucom a
w ith Provide r Comment s: Unspeci fied [place] a Outpatient 78829-6.63 Shanita MEZA 08/21 [facility] [id number] [place] [facility] [facility] 85541-3.63 AARON MESSINA 08/24 [facility] En[facility] [id number] [facility] [place] [facility] Out[facility] [id number] 09/04 [facility] En[facility] [id number] /2021 [facility] [facility] [id number] Diagnos TREE 09/17 [facility] Encounter [id number] is: KAREN IEL D 37 ICD-10- CM F43.10 Post-tr aumatic stress disorde r, unspeci fied
with Provide r Comment s: Outpatient 86304-5.63 TREE 09/21 [facility] Encounter [id number] KAREN [facility] [place] [facility] Out[facility] 36353-9.63 10/05 [facility] Encounter [id number] [facility] [facility] 28582-3.63 10/13 [facility] Encounter [id number] [facility] [place] [facility] 90323-4.63 10/13 [facility] Encounter [id number] /2021 [facility] [place] [facility] Out[facility] 93575-4.63 10/19 [facility] En[facility] [id number] [facility] [place] [facility] Out[facility] 93826-1.63 LEFER-QUIC 10/29 [facility] Encounter [id number] CNT [facility] [place] [facility] [place] [facility] Out[facility] 71643-7.63 LEFER-QUIC 10/29 [facility] Encounter [id number] [facility] [place] [facility] Outpatient 90846-1.63 11/03 [facility] Encounter [id number] [facility] [place] [facility] Out[facility] 25627-7.63 LEFER-QUIC 11/05 [facility] Encounter [id number] K [facility] [place] [facility] Out[facility] 43005-5.63 LEFER-QUIC 11/06 [facility] Encounter [id number] K, CNT [facility] [place] [facility] Out[facility] 82639-5.63 LEFER-QUIC 11/12 [facility] Encounter [id number] K, CNT [facility] [place] [facility] Outpatient 09765-7.63 11/18 [facility] Encounter [id number] [facility] [place] [facility] Outpatient 72316-2.63 LEFER-QUIC 11/25 [facility] Encounter [id number] K, CNT RL [facility] [place] [facility] Outpatient 41230-1.63 11/25 [facility] Encounter [id number] [facility] [place] [facility] Outpatient 40846-4.63 11/25 [facility] Encounter [id number] [facility] [place] [facility] Out[facility] 48859-0.63 LEFER-QUIC 12/01 [facility] Encounter [id number] K, CNT RL [facility] [place] [facility] Outpatient 47365-0.63 12/16 [facility] Encounter [id number] [facility] [place] [facility] Outpatient 64502-0.63 LEFER-QUIC 12/18 [facility] Encounter [id number] K, CNT [facility] [place] [facility] Outpatient 75057-6.63 LEFER-QUIC 12/18 [facility] Encounter [id number] K, CNT RL [facility] [place] [facility] Out[facility] 28881-7.63 Diagnos LEAVITT,ST 12/18 [facility] Encounter [id number] is: EPHEN IEL D 48 ICD-10- CM F43.10 Post-tr aumatic stress disorde r, unspeci fied
with Provide r Comment s: Posttra umatic stress disorde r ([facility] [id number] 3) Outpatient 03604-2.63 01/07 [facility] Encounter [id number] /2021 [facility] [place] [facility] Out[facility] 47026-2.63 LEFER-QUIC 09/30 [facility] Encounter [id number] [facility] [place] [facility] Outpatient 45382-9.63 02/11 [facility] Encounter [id number] [facility] [place] [facility] Outpatient 55974-6.63 02/11 [facility] Encounter [id number] [facility] [place] [facility] OFFICE O/P 57265-6.63 Diagnos TREEST 02/12 [facility] EST HI [id number] is: E[place]EN [place]ELD 40-54 MIN 94 ICD-10- CM F43.10 Post-tr aumatic stress disorde r, unspeci fied
with Provide r Comment s: Posttra umatic stress disorde r ([facility] [id number] 3) Outpatient 85845-3.63 LEFER-QUIC 02/17 [facility] Encounter [id number] [facility] [place] [facility] Outpatient 14894-1.63 MESSINAFLORYAARON 02/17 [facility] Encounter [id number] [facility] [place] [facility] Outpatient 41261-7.63 MESSINA,AARON 02/18 [facility] Encounter [id number] [facility] [place] [facility] Outpatient 16130-6.63 LEFER-QUIC 02/24 [facility] Encounter [id number] [facility] [place] [facility] Outpatient 71098-2.63 02/24 [facility] Encounter [id number] [facility] [place] [facility] Outpatient 03168-0.63 02/24 [facility] Encounter [id number] /2021 [facility] [place] [facility] Outpatient 52407-1.63 02/25 [facility] Encounter [id number] /2021 [facility] [place] [facility] Outpatient 56648-4.63 LEFER-QUIC 03/05 [facility] Encounter [id number] [facility] [place] [facility] SELF-MGMT 86120-6.63 Diagnos DAVID HANCOCK 03/11 [facility] EDUC & [id number] is: JULIANO IELD TRAIN 1 PT 86 ICD-10- CM G47.33 Obstruc tive sleep apnea (adult) (pediat juliano)
with Provide r Comment s: Obstruc tive Sleep Apnea (Adult) (Pediat juliano) Outpatient 78682-0.63 03/15 [facility] En[facility] [id number] /2021 [facility] [place] [facility] 75796-7.63 03/22 [facility] Encounter [id number] [facility] Out[facility] 17412-5.63 LEFER-QU 03/25 [facility] En[facility] [id number] Volodymyr [facility] 65390-4.63 03/25 [facility] [id number] /2021 [facility] [place] [facility] HC PRO 37152-2.63 Diagnos DAVID HANCOCK 03/31 V A PHONE CALL [id number] is: JULIANO CNTR L 5-10 MIN ICD-10- WSTRN CM [place] G47.33 SETS Obstruc HCS tive sleep apnea (adult) (pediat juliano)
with Provide r Comment s: Obstruc tive Sleep Apnea (Adult) (Pediat juliano) Outpatient 39583-3.63 Diagnos DE,MARIAELENA 04/09 [facility] En[facility] [id number] is: SANTOS T CNTR L ICD-10- WSTRN CM [place] Z02.89 SETS Encount [facility] er for other adminis trative examina tions<b r/>with Provide r Comment s: Face-to -Face Examina tion (C&P/SH A) Outpatient [id number] 04/12 [facility] [id number] /20[facility] [place] [facility] Outpatient 39210-7.63 [facility] 04/12 [facility] En[facility] [id number] PIEDAD Helm [facility] Out[facility] 31378-9.63 04/12 [facility] [id number] /2021 [facility] [place] [address]-8.63 Diagnos FLORY MESSINAEN 04/13 [place] 30 MINUTES [id number] is: K IELD 03 ICD-10- CM F43.10 Post-tr aumatic stress disorde r, unspeci fied
with Provide r Comment s: Posttra umatic stress disorde r ([facility] [id number] 3) OFFICE O/P Diagnos LEAVITT,ST 04/13 [facility] EST MOD [id number] is: EPHEN G IELD 30-39 MIN 20 ICD-10- CM F43.10 Post-tr aumatic stress disorde r, unspeci fied
with Provide r Comment s: Posttra umatic stress disorde r ([facility] [id number] 3) COLLJ & Diagnos KARISSADAVID 04/15 [facility] INTERPJ [id number] is: JULIANO [facility] DATA EA 30 ICD-10- WSTRN D CM [place] G47.33 SETS Obstruc HCS tive sleep apnea (adult) (pediat juliano)
with Provide r Comment s: Obstruc tive Sleep Apnea (Adult) (Pediat juliano) SLEEP 84215-1. Diagnos CURIOSO-UY 04/15 [facility] NNECT STUDY [id number] is: ,JAMES /2021 ICUT UNATT&RESP ICD-10- HCS EFFT CM G47.33 Obstruc tive sleep apnea (adult) (pediat juliano)
with Provide r Comment s: Obstruc tive Sleep Apnea OFFICE O/P Diagnos NADAZDIN-B 04/21 [facility] EST HI [id number] is: TRAVIS,OG IEL D 40-54 MIN 89 ICD-10- NJENKA M CM M25.569 Pain in unspeci fied knee
with Provide r Comment s: Pain in unspeci fied Knee Outpatient 88219-8. LEFER-QUIC 04/21 [facility] [id number] K,MAGNUS [facility] GAIT 15371-8. Diagnos NASIM 04/22 SP RINGF TRAINING [id number] is: PEDRO IELD THERAPY 16 ICD-10- FANTA CM R26.89 Other abnorma lities of gait and mobilit y
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
with Provide r Comment s: [facility] neural Hearing Loss, Bilater al Outpatient 73379-6.63 LEFER-QUIC 05/10 [facility] Encounter [id number] K, [facility] Outpatient 14337-1.63 LEFER-QUIC 05/18 [facility] Encounter [id number] K, [facility] Outpatient 37042-8.63 MESSINAAARON 06/01 [facility] Encounter [id number] [facility] [place] [address]-4.63 Diagnos MESSINA,AARON 06/01 [facility] 45 MINUTES [id number].[id number] is: K IELD 60 ICD-10- CM F43.10 Post-tr aumatic stress disorde r, unspeci fied
with Provide r Comment s: Posttra umatic stress disorde r ([facility] [id number] 3) CASE 39271-4.63 Diagnos DAGO,W 06/02 [facility] 1BY.698246 is: WAQAR IELD 22 ICD-10- CM E11.9 Type 2 diabete s mellitu s without complic ations< br/>wit h Provide r Comment s: Type 2 diabete s mellitu s in obese (SCT [id number] 5) CASE 63467-4.63 Diagnos DAGO,W 06/04 SP [facility] MANAGEMENT 1BY.[id number] is: WAQAR IELD 49 ICD-10- CM G47.00 Insomni a, unspeci fied
with Provide r Comment s: Insomni a (SCT [id number] 01) HEARING 61589-0.63 Diagnos Suzan CLOUD 06/08 [facility] SERVICE [id number] is: SIRENA E [facility] ICD-10- [facility]N CM [place] H90.3 [facility]S [facility] neural hearing loss, bilater al
with Provide r Comment s: [facility] neural Hearing Loss, Bilater al OFFICE O/P 22408-1.63 Diagnos LEAVITT,ST 06/16 [facility] EST MOD 1BY.[id number] is: KAREN G IELD 30-39 MIN 59 ICD-10- CM F43.10 Post-tr aumatic stress disorde r, unspeci fied
with Provide r Comment s: Posttra umatic stress disorde r ([facility] [id number] 3) DETERMINE 39926-2. 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
with Provide r Comment s: [facility] neural hearing loss, bilater al Outpatient 57662-3.63 06/29 [facility] En[facility] [id number] [facility] Outpatient 39812-5.63 Diagnos NADAZDIN-B 07/07 [facility] Encounter [id number].[id number] is: TRAVIS,OG IELD 19 ICD-10- NJENKA M CM R51.9 Headach e, unspeci fied
with Provide r Comment s: Headach e, [place] [address]-1.63 Diagnos MESSINA,AARON 07/13 [place] 45 MINUTES [id number].[id number] is: K IELD 08 ICD-10- CM F43.10 Post-tr aumatic stress disorde r, unspeci fied
with Provide r Comment s: Posttra umatic stress disorde r (SCT [id number] 3) Outpatient 08647-2.63 LEFER-QUIC 07/14 [facility] Encounter [id number] K, [facility] Outpatient 77181-7.63 [facility] 07/14 [facility] Encounter [id number] K, [facility] FUNCTIONAL 05227-9.63 Diagnos LEAVITT,ST 07/16 [facility] ELECTRIC [id number] is: KAREN CNTR L STIM NOS ICD-10- [facility]STRN CM [place] F43.12 SETS Post-tr HCS aumatic stress disorde r, chronic
wi th Provide r Comment s: Post-Tr aumatic Stress Disorde r, Chronic CASE 66675-6.63 Diagnos DAGO,W 07/20 [facility] 1BY.[id number] is: WAQAR IELD 70 ICD-10- CM G47.00 Insomni a, unspeci fied
with Provide r Comment s: Insomni a (SCT [id number] 01) Outpatient 71228-0.63 07/21 [facility] Encounter [id number] /2022 [facility] Outpatient 07423-4.63 07/21 [facility] Encounter [id number] /2022 [facility] [place] [address]-8.63 Diagnos MESSINA,AARON 08/05 [place] 30 MINUTES [id number].[id number] is: K IELD 99 ICD-10- CM F43.10 Post-tr aumatic stress disorde r, unspeci fied
with Provide r Comment s: Post-Tr aumatic Stress Disorde r, unspeci fied OFFICE O/P 25400-8 Diagnos TREEST 08/16 [place] EST MOD 1BY.[id number] is: JONEEN IELD 30-39 MIN 23 ICD-10- CM F43.10 Post-tr aumatic stress disorde r, unspeci fied
with Provide r Comment s: Posttra umatic stress disorde r (SCT [id number] 3) Outpatient 77269-2 LEFER-QUIC 08/18 [facility] Encounter [id number] K [facility] [place] [facility] Outpatient 43568-8.63 [facility]QU[facility] 08/19 [facility]counter [id number] K, [facility] [place] [facility] [address]-3.63 Diagnos MESSINA,AARON 08/26 [place] 30 MINUTES [id number].[id number] is: K IELD 34 ICD-10- CM F43.10 Post-tr aumatic stress disorde r, unspeci fied
with Provide r Comment s: Posttra umatic stress disorde r (SCT [id number] 3) PT EVAL 65280-6.63 Diagnos ROUSE, 09/03 [place] LOW [id number].[id number] is: PEDRO IELD COMPLEX 20 94 ICD-10- FANTA MIN CM M54.16 Radicul opathy, lumbar region< br/>wit h Provide r Comment s: Radicul opathy, Lumbar Region Outpatient 65041-3.63 09/07 [facility] En[facility] [id number] [facility] Outpatient 46839-1.63 09/10 [facility] Encounter [id number] [facility] Outpatient 07893-5.63 MESSINAAARON 09/22 [facility] Encounter [id number] K [facility] Outpatient 98783-3.63 10/15 [facility] Encounter [id number] [facility] AFO DOUB 14784-8.63 Diagnos NADAZDIN-B 10/21 [facility] SOLID [id number] is: TRAVIS,OG CNTR L STIRRUP ICD-10- NJENKA M [facility]STRN CALF CM [place] M21.371 SETS Foot HCS drop, right foot
with Provide r Comment s: Foot Drop, right Foot Outpatient 83105-4.63 MESSINAFLORYAARON 10/26 [facility] Encounter [id number] [facility] [place] [address]-9.63 Diagnos FLORY MESSINA10/28 [place] 30 MINUTES 1BY.813284 is: K IELD 17 ICD-10- CM F43.10 Post-tr aumatic stress disorde r, unspeci fied
with Provide r Comment s: Posttra umatic stress disorde r (SCT [id number] 3) Outpatient 54141-4.63 11/11 [facility] Encounter [id number] [facility] Outpatient 89847-3.63 12/02 [facility] Encounter [id number] [facility] Outpatient 80488-7.63 12/02 [facility] Encounter [id number] /2022 [facility] Outpatient 51066-8.63 Diagnos LEAVITT,ST 12/02 [facility] Encounter [id number].[id number] is: KAREN G IEL D 56 ICD-10- CM F43.10 Post-tr aumatic stress disorde r, unspeci fied
with Provide r Comment s: Posttra umatic stress disorde r (SCT [id number] 3) [place] [address]-4.63 Diagnos LIONEL MCDUFFIE 12/06 [facility] DIG [id number] is: [facility] ASSMT&MGMT ICD-10- WSTRN 11-20 CM [place] F43.10 SETS Post-tr HCS aumatic stress disorde r, unspeci fied
with Provide r Comment s: Posttra umatic stress disorde r (SCT [id number] 3) BATTERY 56784-7 Diagnos SHARONROBERTO 12/07 [facility] FOR [id number] is: L [facility] HEARING ICD-10- WSTRN DEVICE CM [place] Z46.1 SETS [facility] H[facility] er for fitting and adjustm ent of hearing aid<br/ >with Provide r Comment s: Encount er for Fitting and Adjustm ent of Hearing Aid Outpatient 38903-4 AARON MESSINA 12/09 [facility] Encounter [id number] IELD 54 OFFICE O/P 06177-4 Diagnos JULIAN ANDREW 12/14 [facility] EST MOD [id number].[id number] is: VID A IELD 30-39 MIN 73 ICD-10- CM I10 Essenti al (primar y) hyperte nsion<b r/>with Provide r Comment s: Essenti al hyperte nsion (SCT [id number] 0) Outpatient Diagnos ST TREE 12/14 [facility] Encounter [id number].[id number] is: EPHEN G IEL D 34 ICD-10- CM F32.9 Major depress ashley disorde r, single episode , unspeci fied
with Provide r Comment s: Depress ion (SCT [id number] 7) Outpatient 36109-1.63 LEFER-QUIC 12/20 [facility] Encounter [id number] Volodymyr [facility] Outpatient 62909-0.63 12/20 [facility] Encounter [id number] [facility] Outpatient 25238-512/29 [facility] Encounter [id number] [facility] [place] [facility] Outpatient 05637-7.63 01/07 [facility] Encounter [id number] [facility] [place] [facility] Outpatient 03626-0.63 01/17 [facility] Encounter [id number].[id number] IELD 25 OFFICE O/P 95286-5.63 Diagnos TREEST 01/19 [facility] EST MOD [id number].[id number] is: EPHEN G IELD 30-39 MIN 21 ICD-10- CM F43.10 Post-tr aumatic stress disorde r, unspeci fied
with Provide r Comment s: Posttra umatic stress disorde r ([facility] [id number] 3) Social History Combined list of available smoking, tobacco, and other social [facility]. Social History Response Date Comment Source Type Tobacco smoking VA-TOBACCO FORMER 12/14/2021 [facility] IELD status NHIS USER History of tobacco VA-TOBACCO QUIT 15 12/14/2021 [facility] IN[facility]IELD use YRS OR MORE History of tobacco VA-TOBACCO FORMER 09/17/2020 [facility] [place] use USER History of tobacco VA-TOBACCO FORMER 01/10/2020 [facility] [place] use USER History of tobacco VA-TOBACCO QUIT 15 03/23/2018 [facility] IN[facility]IELD use YRS OR MORE History of tobacco QUIT TOBACCO USE > 09/19/2017 [facility] IN[facility]IELD use 7 YEARS AGO History of tobacco QUIT TOBACCO USE > 09/15/2016 quit 40 years ag o [facility] use 7 YEARS AGO History of tobacco QUIT TOBACCO USE > 05/12/2015 [facility] IN[facility]IELD use 7 YEARS AGO History of tobacco QUIT TOBACCO USE > 12/27/2006 [facility] IN[facility] use 7 YEARS AGO History of tobacco QUIT TOBACCO USE 12/26/2005 [facility] [place] use 1-7 YEARS AGO History of tobacco QUIT TOBACCO USE IN 08/11/2005 [facility] [place] use PAST YEAR History of tobacco QUIT TOBACCO USE IN 12/09/20042003 [facility] [place] use PAST YEAR History of tobacco QUIT TOBACCO USE IN 04/02/2004 Quit several wk s ago V[facility]OD use PAST YEAR History of tobacco CURRENT SMOKER 06/02/2003 States ocassionally VINOD use History of tobacco HISTORY OF SMOKING 01/31/2002 stopped tobacco 1 year [facility] use ago History of tobacco NON-TOBACCO USER 04/25/2001 Stopped tobacco 3 years [facility] use ago History of tobacco HISTORY OF SMOKING 09/12/2000 Quit cigaretts 2 years [facility] use ago Plan of Care List of future care activities from [facility] facilities. Additional future care activities may be listed in the Assessment and Plan section. Date/Time Care Activity Care Activity Detail Facility 02/03/2022 AMBULATORY - PSYCHIATRY AMBULATORY - PSYCHIATRY [facility]
--- OUTSIDE RECORDS SUMMARY | 2022-02-03 00:24 | XMS_ITS | Continuity of Care Document ---
:1950 Author Organization [address], [address] [place] [address]- Care Team Providers Name Role Phone Oswaldo COBIAN, Anup Reece Primary Care Physician [place] [facility] [place] 09/14/20 - 10/14/[address], [address] [place], [place] [address] Attending Physician: Mariah Dexter Admitting Physician: AdmMariah mckeon Referring Physician: Admtr, Ar8 Allergies, Adverse Reactions, Alerts Substance Reaction Severity [...] 04/09/19 11:51:00 EST, Route to Pharmacy Electronically, [id number], [facility]/pharmacy #[id number],172.7, cm, 04/09/18 15:08:56 EST, Height, 114.1,... [...] 13 cm H2O with Nasal Pillows, ADS [facility] Start Date: 07/25/07 Status: Orderedfenofibrate 54 mg [...] 2 Refills, Maintenance, 09/03/19 12:11:00 EDT, Tablet, [facility]/pharmacy #[id number], 172.7, cm, 04/09/18 15:08:00 EST, Height, [...]
--- OUTSIDE RECORDS SUMMARY | 2022-02-03 00:24 | XMS_ITS | Continuity of Care Document ---
:1950 Author Organization [address], [address] [place] [address]- Care Team Providers Name Role Phone Oswaldo COBIAN, Anup Reece Primary Care Physician Encounter [facility] Date(s): 09/02/20 - 10/14/[address], [address] [place], [place] [address] Attending Physician: Amado Reed MD Referring Physician: Crayn Lopez Allergies, Adverse Reactions, Alerts Substance Reaction Severity [...] 04/09/19 11:51:00 EST, Route to Pharmacy Electronically, [id number], [facility]/pharmacy #[id number],172.7, cm, 04/09/18 15:08:56 EST, Height, [...] 13 cm H2O with Nasal Pillows, ADS [facility] Start Date: 07/25/07 Status: Orderedfenofibrate 54 mg [...] 2 Refills, Maintenance, 09/03/19 12:11:00 EDT, Tablet, [facility]/pharmacy #[id number], 172.7, cm, 04/09/18 15:08:00 EST, [...]
--- OUTSIDE RECORDS SUMMARY | 2022-02-03 00:31 | XMS_ITS ---
:1950 Author Organization Department [facility] rs Address [address] [place] [address] Support Name Relationship Address Phone LORI HOPKINS Unavailable [address] [place] [address] [phone] [place] [address] LORI HOPKINS Unavailable [address] [place] [address] Insurance Providers: All historical and current Section Date Range: From patient's date of to the date document was created.This section includes the names of all active insurance providers for the patient. Insurance Type of Plan Start of End of Group Member Insurance Policy P atient's Provider Coverage Name Policy Policy Number ID Provider's Silva's Relationship Coverage Coverage Telephone Name to Policy Number Silva JARRED PREFERRED STAND May 08 [id number] PROVIDER SHIVA 2010 [id number] RIAN MILLAN FEDERAL ORGANIZAT SELF ION (PPO) BCBS [place] PREFERRED STAND May 08 [id number] [phone] JAMES CE PATIENT FEP PROVIDER SHIVA [phone] RIAN MILLAN ORGANGERMANAT INDIV ION (PPO) IDUAL BCBS OF PREFERRED STAND May 08 [id number] [phone] JAMES CE PATIENT MASS PROVIDER SHIVA 2010 [id number] RIAN MILLAN FEDERAL ORGANIZAT SELF ION (PPO) BCBS OF PREFERRED STAND May 08 [id number] [phone] JAMES CE PATIENT MASS FEP PROVIDER SHIVA [phone] RIAN MILLAN ORGANIZAT SELF ION (PPO) BCBS OF DENTAL STAND May 08, DENTAL [id number] [phone] SANDEEP, PATIENT MASS FEP INSURANCE SHIVA [phone] RIAN DENTAL BCBS OF [place] MEDICARE FEP Dec 06 [id number] SANDEEP PATIENT FEP SECONDARY STAND 2019 [phone] RIAN MILLAN (NO B SHIVA EXC) MEDSE C CAR[place]ARK PRESCRIPT FEP Dec 06, [id number] SANDEEP PATIENT FEP ION ONLY 2014 [phone] RIAN MILLAN [place] PRESCRIPT May 08, [id number] [phone] EDUARDO MATTHEW PATIENT FEP ION 2011 0 [phone] 1 RIAN MILLAN PRESCRIPT CAREM May 08, [id number] [phone] EDUARDO MATTHEW, PATIENT FEP BCBS ION ARK 2011 0 [phone] 1 RIAN FEPRX PLAN CAREMARK PRESCRIPT May 08, [id number] [phone] ENCEstella PATIENT FEPRX PLAN ION 2011 0 [phone] RIAN MILLAN-F PRESCRIPT FEPRX May 08, [id number] [phone] LA JENENCE PATIENT EP BCBS ION /PT D 2010 0 87 1 RIAN MILLAN [facility] May 18, [id number] [phone] JAMES CE, PATIENT RE JONATAN [place] 2003 32 [id number] RIAN CE ORGANIZ EXPRESS PRESCRIPT CONNE May 18, [id number] [phone] JAMES CE, PATIENT SCRIPTS ION CTICA 2002 [id number] RIAN ([id number]) RE MEDICARE MEDICARE PART Oct 06, PART A [id number] Lisa HOPKINS (WNR) (M) A 2012 UP33 [phone] RIAN MEDICARE MEDICARE PART Oct 06, PART B [id number] Lisa HOPKINS (WNR) (M) B 2012 UP33 [phone] RIAN MEDICARE MEDICARE PART Oct 06, PART A [id number] JAMES CE, PATIENT (WNR) (M) A 2013 UP33 00 JOSEPH MEDICARE MEDICARE PART Oct 06, PART B [id number] [phone] JAMES CE, PATIENT (WNR) (M) B 2013 UP33 00 JOSEPH MEDICARE MEDICARE PART Oct 06, PART A [id number] JAMES CE, PATIENT (WNR) (M) A 2013 UP33 2 RIAN MEDICARE MEDICARE PART Oct 06, PART A [id number] [id number] JAMES CE, PATIENT (WNR) (M) A 2013 UP33 7 RIAN MEDICARE MEDICARE PART Oct 06, PART B [id number] [phone] JAMES CE, PATIENT (WNR) (M) B 2012 UP33 7 RIAN MEDICARE MEDICARE PART Oct 06, PART B [id number] JAMES CE, PATIENT (WNR) (M) B 2012 UP33 2 RIAN MEDICARE MEDICARE PART Dec 06, PART D [id number] Lisa HOPKINS ATIENT PART D (M) D 2018 [id number] [phone] RIAN (WNR) MEDICARE PRESCRIPT PART Oct 06, PART D [id number] LAWRE NCE, PATIENT PART D ION D 2012 [id number] RIAN (WNR) MEDICARE PRESCRIPT PART Oct 06, PART D [id number] LAWRE NCE, PATIENT PART D ION D 2012 UP33 0 RIAN (WNR) MEDICARE MEDICARE PART Oct 06, PART D [id number] [phone] JAMES CE, PATIENT PART D (M) D 2012 [id number] 7 RIAN (WNR) Selected Encounter This section includes the information on record at [place] for the Encounter. Date/Time Encounter Type Encounter Description Reason Provider Source May 04, 2021 02:28 Outpatient Encounter TELEPHONE TRIAGE PM IHE Encounter Template Text not used by [place] Plan of Treatment: Future Appointments (+ 6 months) and Future Tests (+/- 45 days) The Plan of Treatment section includes future care activities for the patient from all [place] treatmentfacilities. This section includes future appointments and future orders which are active, pending orscheduled.Future Appointments This section includes appointments that were scheduled to occur 6 months from the date of the Encounter, up to a maximum of 20 appointments. The data comes from all [place] treatment facilities. Appointment Date/Time Appointment Type Appointment Facili ty Name May 05, 2021 03:00 PM AMBULATORY - REHAB MEDICINE [facility] Cosmo PANDEY [facility] Jun 01, 2021 02:00 PM AM[facility] - [facility] [place] Jun 02, 2021 12:30 PM [facility] [place] [facility] [place] Jun 04, 2021 12:30 PM [facility] [place] [facility] [place] Jun 08, 2021 02:00 PM AMBULATORY - REHAB MEDICINE [facility] Cosmo PANDEY [facility] Jun 16, 2021 02:00 PM AM[facility] [place] Jun 18, 2021 01:00 PM AMBULATORY - MEDICINE [facility] Curtis CASPER [facility] Jun 22, 2021 02:00 PM AM[facility] [place] Jun 23, 2021 01:00 PM [facility] Jul 07, 2021 11:00 AM [facility] - [facility] [place] Jul 13, 2021 02:00 PM AM[facility] [place] Jul 20, 2021 02:30 PM AMB[facility] - [facility] [place] Aug 05, 2021 02:00 PM AM[facility] [place] Aug 16, 2021 02:00 PM [facility]ORY [facility] [place] Aug 26, 2021 02:00 PM [facility]ORY [facility] [place] Sep 03, 2021 11:00 AM AMBULATORY - REHAB MEDICINE [facility] Oct 28, 2021 02:00 PM AMBULATORY [facility] Lab Results: +/- 30 days of the encounter This section includes the Chemistry and Hematology Lab Results on record with [place] for the patient. Radiology Reports and Pathology Reports are provided separately, in subsequent sections.Lab Results This section contains the Chemistry/Hematology Results that were resulted 30 days before or 30 daysafter the date of the Encounter. Date/Time Source Result Type Result - Unit Interpretation Reference Range Comment Apr 20, 2021 [place] VITAMIN D (25-OH) Specimen Type : SERUM 11:34 AM Comment: GLUCOS E Verified by repeat analysis. CALLED DR NG 04/20/21@1432 [facility] Read-back was completed. Ordering Provid er: ROMULO CHONG Report Released Date/Time: Apr 07, 2021 01:54 PM Reporting Lab: [facility] [address] [address] Performing Lab: [facility] [address] [address] VITAMIN D (25-OH) <13 L 20-50 Apr 20, 2021 [place] BASIC METABOLIC Specimen Type: SERUM 11:34 AM PANEL (fasting) Comment: GLUCOS E Verified by repeat analysis. CALLED DR NG 04/20/21@1432 [facility] Read-back was completed. Ordering Provid er: ROMULO CHONG Report Released Date/Time: Apr 07, 2021 01:54 PM Reporting Lab: [address] [address] Performing Lab: [address] [address] UREA NITROGEN 25 7-25 GLUCOSE 48 LL 65-100 SODIUM 141 135-145 POTASSIUM 4.3 3.5-5.0 CHLORIDE 105 100-110 CO2 29 20-30 CREATININE, Serum 1.82 H 0.50-1.40 eGFR (IDMS) 37 L >60 Apr 20, 2021 [place] LIPID PANEL FASTING Specimen Ty pe: SERUM 11:34 AM Comment: GLUCOS E Verified by repeat analysis. CALLED DR NG 04/20/21@3212 [facility] Read-back was completed. Ordering Provid er: ROMULO CHONG Report Released Date/Time: Apr 07, 2021 01:54 PM Reporting Lab: [address] [address] Performing Lab: [address] [address] CHOLESTEROL 181 0-199 TRIGLYCERIDE 193 H 0-150 LDL calculated 95 0-129 CHOL/HDL 3.9 HDL CHOLESTEROL 47 40-60 Apr 20, 2021 [place] HEMOGLOBIN A1C PANEL Specimen T ype: BLOOD 11:34 AM Comment: Testin g performed by NGSP certified Mazariegos Enzymatic with CV <2%. The Mazariegos HgA1C assay should not be used to diagnose or monitor diabetes in patients with altered red cell lifespan such a s homozygous hem oglobin variants, Hb SC, HbF>5% and hemolytic anemia. Heterozygous variants do not affect this assay, HbAS, HbAC, HbAD, HbAE, AbA2 Ordering Provid er: ROMULO CHONG Report Released Date/Time: Apr 07, 2021 01:54 PM Reporting Lab: [address] [address] Performing Lab: [address] [address] HEMOGLOBIN A1C 9.2 H 4.0-5.6 Apr 20, 2021 11:34 [place] LIVER FUNCTION Specimen Typ e: SERUM AM Comment: GLUCOS E Verified by repeat analysis. CALLED DR NG 04/20/21@1432 [facility] Read-back was completed. Ordering Provid er: ROMULO CHONG Report Released Date/Time: Apr 07, 2021 01:54 PM Reporting Lab: [facility] [address] [facility] [address] Performing Lab: [facility] [address] [facility] [address] PROTEIN,TOTAL 6.7 6.0-8.3 ALBUMIN 3.3 L 3.5-5.0 ALKALINE PHOSPHATASE 60 40-150 AST 14 5-34 ALT 15 0-55 BILIRUBIN, TOTAL 0.4 0.2-1.2 Apr 20, 2021 11:34 AM [place] TSH Specimen Type: SERUM Comment: GLUCOS E Verified by repeat analysis. CALLED DR NG 04/20/21@1432 [facility] Read-back was completed. Ordering Provid er: ROMULO CHONG Report Released Date/Time: Apr 07, 2021 01:54 PM Reporting Lab: [facility] [address] [facility] [address] Performing Lab: [facility] [address] [facility] [address] TSH 3.57 0.35-5.00 Apr 20, 2021 [place] MICROALBUMIN Specimen Type: URINE 11:34 AM CREATININE RATIO PANEL No commen t entered. Ordering Provid er: ROMULO CHONG Report Released Date/Time: Apr 07, 2021 01:54 PM Reporting Lab: [facility] [address] [facility] [address] Performing Lab: [facility] [address] [facility] [address] MICROALBUMIN/CREATININE RATIO canc 0-29.9 MICROALBUMIN,QUANTITATIVE > 300.0 RR U NAVAIL CREATININE URINE 173.58 Apr 20, 2021 [place] CBC AND DIFF Specimen Type: BLOOD 11:34 AM (AUTO) No comment enter ed. Ordering Provid er: ROMULO CHONG Report Released Date/Time: Apr 07, 2021 01:54 PM Reporting Lab: [facility] [address] [facility] [address] Performing Lab: [address] [address] WBC 10.37 4.50-11.00 RBC 4.83 4.23-5.66 HGB 14.2 12.8-17 HCT 44.0 39.2-50.4 MCV 91.1 82-99 MCHC 32.3 30.8-35.1 PLT 286 140-360 RDW-CV 13.0 12.0-16.0 [place], Abs 1.04 0.30-1.10 MCH 29.4 26.2-32.6 Neut % 42.3 Lymph % 42.3 [place] % 10.0 Eos % 4.5 Baso % 0.7 Neut, Abs 4.38 2.20-7.60 Lymph, Abs 4.39 H 1.00-3.20 Eos, Abs 0.47 H 0.03-0.44 Baso, Abs 0.07 0.01-0.13 Immature Gran % 0.2 Immature Gran, Abs 0.02 0.00-0.06 Encounter Notes: All associated encounter notes This section contains the clinical notes associated to the Encounter. Date/Time Encounter Note(s) Provider Source May 04, 2021 02:28 PM NURSING TELEPHONE ENCOUNTER TRIAGE NOTE: REZA GARCIA BRYAN [facility] LOCAL TITLE: VISN 1 CLINICAL CONTACT CENTER [facility] STANDARD TITLE: NURSING TELEPHONE ENCOUNTER TRIA GE NOTE DATE OF NOTE: MAY 04, 2021@14:28:25 ENTRY DATE: MAY 04, 2021@14:29:59 AUTHOR: REZA ACOSTA EXP COSIGNER: URGENCY: STATUS: COMPLETED VISN 1 CLINICAL CONTACT CENTER Has ADDENDA The patient, RIAN HOPKINS JR ([id number]) Phon e: called the call center. The following identifiers were used to verify th is patient: SSN. Contact Type of call: ADMINISTRATIVE. Caller Response: ADM CALL RESOLVED Caller Area: [place] [facility] Provider Info: [facility] [facility] ([phone]) MH: [facility] ([facility]) Psychiatrist Graham Oliveira [facility] ([id number]) PACT: SO PACT 5 (Focus: Primary Care Only) Primary Care Provider: Chriss Chong Roving Marker: Peri Mandujano Clinical Associate: Michele Mcwilliams Load Blocker: Jayshree Norton PHONE: [phone] Surrogate Roving Marker: Paco Gallegos [id number] Clinical POC: Roving Marker Peri Mandujano Administrative POC: Load Blocker Jayshree Norton PHONE:[phone] Author: REZA ACOSTA Comments: Vet called wondering what his 05/03/21 appt was for. kindly assist. Evaluation/Management Code: HC PRO PHONE CALL 5- 10 MIN ([phone]). Starting at: 05/04/2021 @ 2:28:25 PM Ending at: 05/04/2021 @ 2:29:19 PM Length: 0 minutes. Chief Complaint: Not applicable to call. Class Code: Other specified counseling. Patient's Email Address: [email or web address]/ REZA ACOSTA ADVANCED FORWARDER OPERATOR Signed: 05/04/2021 14:29 Receipt Acknowledged By: 05/04/2021 14:38 /virgilio Mandujano RN Registered Nurse * AWAITING SIGNATURE * MICHELE MCWILLIAMS 05/04/2021 ADDENDUM STATUS: COMPLETED Spoke with and advis ed appointment on 05/03/2021 was at [facility]. states he went to that ileana cruz /[email or web address]/ Peri Mandujano RN Registered Nurse Signed: 05/04/2021 14:39
--- OUTSIDE RECORDS SUMMARY | 2022-02-03 00:31 | XMS_ITS | Encounter Summary ---
:1950 Author Organization [facility] Address [address] [place] [id number] Support Name Relationship Address Phone LORI HOPKINS Unavailable [address] [facility] [place] [address] LORI HOPKINS Unavailable [address] [facility] [place] [address] Insurance Providers: All historical and current Section [...] Number Silva JARRED PREFERRED STAND May 08 [id number] [phone] PROVIDER SHIVA 2010 [id number] [phone] MATI MILLAN FEDERAL ORGANIZAT SELF ION (PPO) [place]BS [place] PREFERRED STAND May 08 [id number] [phone] JAMES CE PATIENT FEP PROVIDER SHIVA [phone] MATI MILLAN ORGANGERMANAT INDIV ION (PPO) IDUAL BCBS OF PREFERRED STAND May 08 [id number] [phone] JAMES CE PATIENT MASS PROVIDER SHIVA [phone] [id number] MATI MILLAN FEDERAL ORGANIZAT SELF ION (PPO) BCBS OF PREFERRED STAND May 08 [id number] [phone] JAMES CE PATIENT MASS FEP PROVIDER SHIVA [phone] MATI MILLAN ORGANIZAT SELF ION (PPO) BCBS OF DENTAL STAND May 08, DENTAL [id number] [phone] SANDEEP, PATIENT MASS FEP INSURANCE SHIVA [phone] 6 MATI DENTAL [place] OF [place] MEDICARE FEP Dec 06 [id number] SANDEEP PATIENT FEP SECONDARY STAND 2019 [phone] MATI MILLAN (NO B SHIVA EXC) MEDSE C JAUNMARK PRESCRIPT FEP Dec 06, [id number] SANDEEP PATIENT FEP ION ONLY 2013 [phone] MATI MILLAN CARELIONEL PRESCRIPT May 08, [id number] [phone] EDUARDO MATTHEW PATIENT FEP ION 2011 0 87 1 MATI MILLAN PRESCRIPT CAREM May 08, [id number] [phone] EDUARDO MATTHEW, PATIENT FEP BCBS ION ARK 2011 0 87 1 MATI FEPRX PLAN CAREMARK PRESCRIPT May 08, [id number] [phone] EDUARDO ENCEstella PATIENT FEPRX PLAN ION 2010 0 [phone] MATI MILLNA-F PRESCRIPT FEPRX May 08, [id number] [phone] LA KVNG PATIENT EP BCBS ION /PT D 2010 0 [phone] 1 MATI MILLAN [facility] May 18, [id number] [phone] JAMES CE, PATIENT RE JONATAN AL 2003 32 [phone] MATI CE ORGANIZ EXPRESS PRESCRIPT CONNE May 18, [id number] [phone] JAMES CE, PATIENT SCRIPTS ION CTICA 2003 [id number] MATI ([id number]) RE MEDICARE MEDICARE PART Oct 06, PART A [id number] [phone] JAMES CE, PATIENT (WNR) (M) A 2012 UP33 00 [place] MEDICARE MEDICARE PART Oct 06, PART B [id number] [phone] JAMES CE, PATIENT (WNR) (M) B 2012 UP33 00 [place] MEDICARE MEDICARE PART Oct 06, PART A [id number] [phone] JAMES CE, PATIENT (WNR) (M) A 2012 UP33 2 [place] MEDICARE MEDICARE PART Oct 06, PART B [id number] [phone] JAMES CE, PATIENT (WNR) (M) B 2012 UP33 2 [place] MEDICARE MEDICARE PART Oct 06, PART A [id number] Lisa HOPKINS (WNR) (M) A 2013 UP33 [phone] [place] MEDICARE MEDICARE PART Oct 06, PART B [id number] Lisa HOPKINS (WNR) (M) B 2012 UP33 [phone] [place] MEDICARE MEDICARE PART Oct 06, PART A [id number] [phone] JAMES CE, PATIENT (WNR) (M) A 2012 UP33 7 MATI MEDICARE MEDICARE PART Oct 06, PART B [id number] [phone] JAMES CE, PATIENT (WNR) (M) B 2012 UP33 7 MATI MEDICARE MEDICARE PART Dec 06, PART D [id number] SANDEEPLisa ATIENT PART D (M) D 2018 UP33 [phone] MATI (WNR) MEDICARE MEDICARE PART Oct 06, PART D [id number] [phone] JAMES CE, PATIENT PART D (M) D 2012 UP33 7 MATI (WNR) MEDICARE PRESCRIPT PART Oct 06, PART D [id number] [phone] LAWRE NCE, PATIENT PART D ION D 2012 [id number] 0 MATI (WNR) MEDICARE PRESCRIPT PART Oct 06, PART D [id number] [phone] LAWRE NCE, PATIENT PART D ION D 2012 UP33 0 MATI (WNR) Selected Encounter This section includes the information on record at [place] for the Encounter. Date/Time Encounter Type Encounter Reason Provider Source Description Apr 15, 2021 SLEEP STUDY SLEEP STUDY ICD-10-CM G47.33 CURIOSO-UY,SCOTT 12:09 PM UNATT&RESP EFFT Obstructive sleep THIA apnea (adult) (pediatric) with Provider Comments: Obstructive Sleep Apnea IHE Encounter Template Text not used by [place] Assessments - Encounter Diagnoses This section includes the primary and secondary diagnoses documented for the Encounter. Date/Time Primary/Secondary Diagnosis Name Provider Source Diagnosis Apr 20, 2021 PRIMARY Obstructive sleep CURIOSO-UY,SCTOT [facility] 03:16 PM apnea (adult) THIA (pediatric) Plan of Treatment: Future Appointments (+ 6 months) and Future Tests (+/- 45 days) The Plan of Treatment section includes future care activities for the patient from all [place] treatmentfacilities. This section includes future appointments and future orders which are active, pending orscheduled.Future Appointments This section includes appointments that were scheduled to occur 6 months from the date of the Encounter, up to a maximum of 20 appointments. The data comes from all [place] treatment facilities. Appointment Date/Time Appointment Type Appointment Facili ty Name Apr 21, 2021 11:00 AM AMBULATORY - MEDICINE [place] Apr 22, 2021 01:00 PM AMBULATORY - REHAB MEDICINE [facility] May 03, 2021 01:45 PM AMBULATORY - MEDICINE [facility]N [facility] May 05, 2021 03:00 PM AMBULATORY - REHAB MEDICINE [facility] [place] [facility] Jun 01, 2021 02:00 PM AMBULATORY [facility] Jun 02, 2021 12:30 PM AMBULATORY [facility] Jun 04, 2021 12:30 PM AMBULATORY - PSYCHIATRY [place] Jun 08, 2021 02:00 PM AMBULATORY - REHAB MEDICINE [facility] [place] [facility] Jun 16, 2021 02:00 PM AMBULATORY - PSYCHIATRY [place] Jun 18, 2021 01:00 PM [facility] Jun 22, 2021 02:00 PM AMBULATORY [facility] Jun 23, 2021 01:00 PM [facility] Jul 07, 2021 11:00 AM AM[facility]ULATORY - MEDICINE [place] Jul 13, 2021 02:00 PM AMBULATORY [facility] Jul 20, 2021 02:30 PM AMBULATORY [facility] Aug 05, 2021 02:00 PM AMBULATORY [facility] Aug 16, 2021 02:00 PM AMBULATORY [facility] Aug 26, 2021 02:00 PM [facility] Sep 03, 2021 11:00 AM [facility] Lab Results: +/- 30 days of the encounter This section includes the Chemistry and Hematology Lab Results on record with [place] for the patient. Radiology Reports and Pathology Reports are provided separately, in subsequent sections.Lab Results This section contains the Chemistry/Hematology Results that were resulted 30 days before or 30 daysafter the date of the Encounter. Date/Time Source Result Type Result - Unit Interpretation Reference Range Comment Apr 20, 2021 [place] VITAMIN D (25-OH) Specimen Type : SERUM 11:34 AM Comment: GLUCOS E Verified by repeat analysis. CALLED DR NG 04/20/21@3287 [facility] Read-back was completed. Ordering Provid er: ROMULO INTERIANO Report Released Date/Time: Apr 07, 2021 01:54 PM Reporting Lab: [address] [place] [address] Performing Lab: [address] [address] VITAMIN D (25-OH) <13 L 20-50 Apr 20, 2021 [place] BASIC METABOLIC Specimen Type: SERUM 11:34 AM PANEL (fasting) Comment: GLUCOS E Verified by repeat analysis. CALLED DR NG 04/20/21@1432 [facility] Read-back was completed. Ordering Provid er: ROMULO INTERIANO Report Released Date/Time: Apr 07, 2021 01:54 PM Reporting Lab: [address] [address] Performing Lab: [address] [address] UREA NITROGEN 25 7-25 GLUCOSE 48 LL 65-100 SODIUM 141 135-145 POTASSIUM 4.3 3.5-5.0 CHLORIDE 105 100-110 CO2 29 20-30 CREATININE, Serum 1.82 H 0.50-1.40 eGFR (IDMS) 37 L >60 Apr 20, 2021 [place] LIPID PANEL FASTING Specimen Ty pe: SERUM 11:34 AM Comment: GLUCOS E Verified by repeat analysis. CALLED DR NG 04/20/21@1432 [facility] Read-back was completed. Ordering Provid er: ROMULO INTERIANO Report Released Date/Time: Apr 07, 2021 01:54 PM Reporting Lab: [address] [address] Performing Lab: [address] [address] CHOLESTEROL 181 0-199 TRIGLYCERIDE 193 H 0-150 LDL calculated 95 0-129 CHOL/HDL 3.9 HDL CHOLESTEROL 47 40-60 Apr 20, 2021 [place] HEMOGLOBIN A1C PANEL Specimen T ype: BLOOD [...] HbAD, HbAE, AbA2 Ordering Provid er: ROMULO INTERIANO Report Released Date/Time: Apr 07, 2021 01:54 PM Reporting Lab: [address] [address] Performing Lab: [address] [address] HEMOGLOBIN A1C 9.2 H 4.0-5.6 Apr 20, 2021 11:34 [place] LIVER FUNCTION Specimen Typ e: SERUM AM Comment: GLUCOS E Verified by repeat analysis. CALLED DR NG 04/20/21@1432 [facility] Read-back was completed. Ordering Provid er: ROMULO INTERIANO Report Released Date/Time: Apr 07, 2021 01:54 PM Reporting Lab: [facility] [address] [facility] [address] Performing Lab: [facility] [address] [facility] [address] PROTEIN,TOTAL 6.7 6.0-8.3 ALBUMIN 3.3 L 3.5-5.0 ALKALINE PHOSPHATASE 60 40-150 AST 14 5-34 ALT 15 0-55 BILIRUBIN, TOTAL 0.4 0.2-1.2 Apr 20, 2021 11:34 AM [place] TSH Specimen Type: SERUM Comment: GLUCOS E Verified by repeat analysis. CALLED DR NG 04/20/21@1432 [facility] Read-back was completed. Ordering Provid er: ROMULO INTERIANO Report Released Date/Time: Apr 07, 2021 01:54 PM Reporting Lab: [facility] [address] [facility] [address] Performing Lab: [facility] [address] [facility] [address] TSH 3.57 0.35-5.00 Apr 20, 2021 [place] MICROALBUMIN Specimen Type: URINE 11:34 AM CREATININE RATIO PANEL No commen t entered. Ordering Provid er: ROMULO INTERIANO Report Released Date/Time: Apr 07, 2021 01:54 PM Reporting Lab: [address] [address] Performing Lab: [address] [address] MICROALBUMIN/CREATININE RATIO canc 0-29.9 MICROALBUMIN,QUANTITATIVE > 300.0 RR U NAVAIL CREATININE URINE 173.58 Apr 20, 2021 [place] CBC AND DIFF Specimen Type: BLOOD 11:34 AM (AUTO) No comment enter ed. Ordering Provid er: ROMULO INTERIANO Report Released Date/Time: Apr 07, 2021 01:54 PM Reporting Lab: [address] [address] Performing Lab: [address] [address] WBC 10.37 4.50-11.00 RBC 4.83 4.23-5.66 HGB 14.2 12.8-17 HCT 44.0 39.2-50.4 MCV 91.1 82-99 MCHC 32.3 30.8-35.1 PLT 286 140-360 RDW-CV 13.0 12.0-16.0 [place], Abs 1.04 0.30-1.10 MCH 29.4 26.2-32.6 Neut % 42.3 Lymph % 42.3 [place] % 10.0 Eos % 4.5 Baso % 0.7 Neut, Abs 4.38 2.20-7.60 Lymph, Abs 4.39 H 1.00-3.20 Eos, Abs 0.47 H 0.03-0.44 Baso, Abs 0.07 0.01-0.13 Immature Gran % 0.2 Immature Gran, Abs 0.02 0.00-0.06 Encounter Notes: All associated encounter notes This section contains the clinical notes associated to the Encounter. Date/Time Encounter Note(s) Provider Source Apr 20, 2021 03:18 PM SLEEP MEDICINE DIAGNOSTIC STUDY REPORT : ASHLY HOOK [facility] LOCAL TITLE: SLEEP STUDY RESULTS LETTER (GT) STANDARD TITLE: SLEEP MEDICINE DIAGNOSTIC STUDY REPORT DATE OF NOTE: APR 20, 2021@15:18 ENTRY DATE: APR 20, 2021@15:19:05 AUTHOR: ASHLY HOOKIGNER: URGENCY: STATUS: COMPLETED MATI HOPKINS [address] [place] [address] Date:APR 20, 2021 Dear Mati Hopkins Jr, You recently had a sleep test that showed SEVERE obstructive sleep apnea. We will have you follow up with your ref erring provider, Kristen Interiano MD to further discuss sleep study results and ne xt plan of care. We recommend to continue use of your CPAP while awaiting CPAP replacement. Thank you, Ashly Hook MD Sleep Medicine Physician [address] [address] Apr 20, 2021 03:16 PM SLEEP MEDICINE DIAGNOSTIC STUDY REPORT : ASHLY HOOK [facility] LOCAL TITLE: SLEEP STUDY RESULTS LETTER (GT) STANDARD TITLE: SLEEP MEDICINE DIAGNOSTIC STUDY REPORT DATE OF NOTE: APR 20, 2021@15:16 ENTRY DATE: APR 20, 2021@15:16:58 AUTHOR: ASHLY HOOK COSIGNER: URGENCY: STATUS: COMPLETED MATI HOPKINS [address] [place] [address] [id number]@[employer] [place], [place] [address] Date:APR 20, 2021 Dear Mati Hopkins Jr, You recently had a sleep test that showed SEVERE obstructive sleep apnea. We will have you follow up with your ref erring provider, Kristen Interiano MD to further discuss sleep study results and ne xt plan of care. We recommend to continue use of your CPAP while awaiting CPAP replacement. Thank you, Ashly Hook MD Sleep Medicine Physician [address] [address] Apr 15, 2021 12:09 PM SLEEP MEDICINE CONSULT: ASHLY HOOK [facility] LOCAL TITLE: Sleep Study Interpretation Consult Note STANDARD TITLE: SLEEP MEDICINE CONSULT DATE OF NOTE: APR 15, 2021@12:09 ENTRY DATE: APR 15, 2021@12:09:12 AUTHOR: ASHLY HOOK COSIGNER: URGENCY: STATUS: COMPLETED [facility] [address] [place] [address] Ambulatory Limited Channel Polysomnography Repor t Patient: MATI HOPKINS Gender: Male : 1950 Study Date: 04/02/2021 BMI: 38.2 Indications: Referred to rule out Sleep Apnea. h/o sleep apnea - last sleep study >20 years ago ; gained weight since then Symptoms: Ranson sleepiness scale: 08/29 Co-morbidities: Myocardial Infarction, Coronary Artery Disease, Hypertension, Diabetes, Obesity Diagnosis: Obstructive Sleep Apnea G47.33 Requesting Provider: Kristen Interiano MD Interpreted by: Selena Hook MD Scored by: Rigoberto Carpenter MS, [facility] IMPRESSION: 1. SEVERE Obstructive Sleep Apnea Syndrome: The patient has an overall HST-TARA of 55.3/hr on this study with associated oxygen desaturations. The mean arterial oxygen saturation on room air was 92.4 % and nadired to 81.0%. The saturation time < 90% was 53.6 minute s, 13.7% of total recording time. 2. Patient with known history of [place] currently o n PAP therapy. RECOMMENDATIONS: 1. Continued treatment with PAP therapy is recom mended for patient's [place]. If current CPAP pressure is known, he can contin ue with his current CPAP pressure. Alternatively, can also start patient on APAP empirically on setting of 6-20 cm H20. Follow up patient clinically to assess response with APAP. Download of APAP/CPAP data to ensure efficacy of APAP and patient's adherence Patient to continue use of h is current PAP machine while awaiting replacement of CPAP. NOTE: Patient should be made aware that there co uld be a delay of CPAP set-up given the recall of all Respironics PAP devices. There is a current backlog of CPAP supplies nationwide stemming from this r ecall. 3. Patient can also be seen in sleep clinic for follow up of sleep disorder, discussion of sleep study and guidance o f treatment options. He can be seen at the [facility] slee p study clinic or at [facility] in [place]. Please place the sleep clinic consult if is to be seen. 4. The patient should be ins tructed to avoid driving and not engage in operating heavy machinery equipment when sleepy, drowsy or fatigued. 5. Weight loss of as little as 10% of body weigh t may help to improve sleep related breathing disorder for some patient. 6. Patient should refrain from sleeping in supin e position. *Current [employer] recommen dations for treatment of obstructive sleep apnea includes 1) positive air way pressure (PAP) as initial therapy, and alternative therapy may include ora l appliance therapy; ENT evaluation for upper airway surgery; Inspire/hyp oglossal nerve stimulator therapy. Treatment also includes weig ht reduction if BMI is elevated, avoidance of sleep ing in the supine position and reduction of alcohol and medications that contribute to upper airway relaxation. SUMMARY OF DATA: An ambulatory sleep study was performed on the [facility] of 04/02/2021 from 12:39 AM until 7:38 AM. The total recording time was 4 18.8 minutes. There were a total of 361 respiratory events as follows: RESPIRATORY EVENT TYPE # of respiratory events Obstructive Apneas: 108 Central Apneas: 0 Mixed Apneas: 0 Obstructive Hypopneas: 253 This led to an overall HST-TARA of 55.3/hr. The s upine HST-TARA was 62.4/hr. The supine time was 66.5% of total recording clifford e. The Non-Supine HST-TARA was 41.2. The central HST-TARA was 0/hr. The mean art erial oxygen saturation on room air was 92.4 % and nadired to 81.0%. The sa turation time < or = 88% was 7.5 % of total recording time. The saturation ti me < 90% was 53.6 minutes, 13.7% of total recording time. The pulse oximetry showed an average heart rate of 57.8 bpm. METHOD OF STUDY: The patient was monitored for assessment of sleep disordered breathing using a Type III NoxT3 Ambulatory data acquisition syste m. Arterial oxygen saturation was measured using a pulse oximeter. Nasal press ure transducer was used to monitor nasal airflow. Respiratory Inductance Pl ethysmography (RIP) belts were used to monitor ribcage and abdominal excur sions. Body position was recorded using actigraphy. DEFINITIONS: Apneas are defined as at least 90% reduction in airflow for greater than 10 seconds. Hypopnea is defined as greater than or equal to 30% reduction in the nasal pressure signal for at least 10 seconds, a ssociated with an EEG arousal or at least 3% oxygen desaturation. Respiratory Event Index (TARA) is the sum of apneas, hypopneas per hour. These parameters were calculated based on the recording time. /justine/ ASHLY HOOK MD ATTENDING Signed: 04/20/2021 15:16
--- OUTSIDE RECORDS SUMMARY | 2022-02-03 00:31 | XMS_ITS | Encounter Summary ---
:1950 Author Organization Department [facility] Address [address] [place] [address] Support Name Relationship Address Phone LORI HOPKINS Unavailable [address] [place] [address] [phone] [place] [address] LORI HOPKINS Unavailable [address] [place] [address] [place] [address] Insurance Providers: All historical and current Section [...] Number Silva JARRED PREFERRED STAND May 08 [id number] PROVIDER SHIVA 2010 [id number] RIAN MILLAN FEDERAL ORGANIZAT SELF ION (PPO) BCBS [place] PREFERRED STAND May 08 [id number] [phone] JAMES CE PATIENT FEP PROVIDER SHIVA 2010 87 123 RIAN MILLAN ORGANGERMANAT INDIV ION (PPO) IDUAL BCBS OF PREFERRED STAND May 08 [id number] [phone] JAMES CE PATIENT MASS PROVIDER SHIVA 2010 87 3 RIAN MILLAN FEDERAL ORGANIZAT SELF ION (PPO) BCBS OF PREFERRED STAND May 08 [id number] [phone] JAMES CE PATIENT MASS FEP PROVIDER SHIVA 2010 87 6 RIAN MILLAN ORGANIZAT SELF ION (PPO) BCBS OF DENTAL STAND May 08, DENTAL [id number] [phone] SANDEEP, PATIENT MASS FEP INSURANCE SHIVA 2010 87 6 RIAN DENTAL [place] OF [place] MEDICARE FEP Dec 06 [id number] 800 SANDEEP PATIENT FEP SECONDARY STAND 2019 [phone] RIAN MILLAN (NO B SHIVA EXC) MEDSE C CAREMARK PRESCRIPT FEP Dec 06, [id number] SANDEEP PATIENT FEP ION ONLY 2014 0 87 [phone] RIAN MILLAN PRESCRIPT May 08, [id number] [phone] EDUARDO ENCEstella PATIENT FEP ION 2011 0 87 1 RIAN MILLAN PRESCRIPT CAREM May 08, [id number] [phone] EDUARDO ENCEstella, PATIENT FEP BCBS ION ARK 2011 0 87 1 RIAN FEPRX PLAN CAREMARK PRESCRIPT May 08, [id number] [phone] LAWR ENCE PATIENT FEPRX PLAN ION 2011 0 87 331 RIAN MILLAN-F PRESCRIPT FEPRX May 08, [id number] [phone] LA WRENCE PATIENT EP BCBS ION /PT D 2010 0 87 1 RIAN MILLAN [facility] May 18, [id number] [phone] JAMES CE, PATIENT RE [place] 2003 32 7 RIAN CE ORGANIZ EXPRESS PRESCRIPT CONNE May 18, [id number] [phone] JAMES CE, PATIENT SCRIPTS ION CTICA 2003 [id number] RIAN ([id number]) RE MEDICARE MEDICARE PART Oct 06, PART A [id number] JAMES CE, PATIENT (WNR) (M) A 2012 UP33 2 [place] MEDICARE MEDICARE PART Oct 06, PART B [id number] [id number] JAMES CE, PATIENT (WNR) (M) B 2012 UP33 2 [place] MEDICARE MEDICARE PART Oct 06, PART A [id number] JAMES CE, PATIENT (WNR) (M) A 2013 UP33 00 [place] MEDICARE MEDICARE PART Oct 06, PART B [id number] JAMES CE, PATIENT (WNR) (M) B 2012 UP33 00 [place] MEDICARE MEDICARE PART Oct 06, PART A [id number] Lisa HOPKINS (WNR) (M) A 2012 UP28 [id number] [place] MEDICARE MEDICARE PART Oct 06, PART A [id number] JAMES CE, PATIENT (WNR) (M) A 2012 UP33 7 RIAN MEDICARE MEDICARE PART Oct 06, PART B [id number] [phone] JAMES CE, PATIENT (WNR) (M) B 2012 UP33 7 RIAN MEDICARE MEDICARE PART Oct 06, PART B [id number] 800 SANDEEP Lisa RAIZAIENT (WNR) (M) B 2012 UP33 [phone] RIAN MEDICARE MEDICARE PART Dec 06, PART D [id number] Lisa HOPKINS ATIENT PART D (M) D 2018 UP33 [phone] RIAN (WNR) MEDICARE MEDICARE PART Oct 06, PART D [id number] [phone] JAMES CE, PATIENT PART D (M) D 2012 UP33 7 RIAN (WNR) MEDICARE PRESCRIPT PART Oct 06, PART D [id number] [phone] LAWRE NCE, PATIENT PART D ION D 2012 32A 0 RIAN (WNR) MEDICARE PRESCRIPT PART Oct 06, PART D [id number] [phone] LAWRE NCE, PATIENT PART D ION D 2012 UP33 0 RINA (WNR) Selected Encounter This section includes the information on record at [place] for the Encounter. Date/Time Encounter Type Encounter Reason Provider Source Description May 05, 2021 HEARING AID AUDIOLOGY ICD-10-CM H90.3 OLGA CLOUD 03:00 PM EXAM BOTH EARS Sensorineural E hearing loss, bilateral with Provider Comments: Sensorineural Hearing Loss, Bilateral IHE Encounter Template Text not used by [place] Assessments - Encounter Diagnoses This section includes the primary and secondary diagnoses documented for the Encounter. Date/Time Primary/Secondary Diagnosis Name Provider Source Diagnosis May 05, 2021 PRIMARY Sensorineural OLGA CLOUD [facility] N 03:36 PM hearing loss, [facility] [place] [facility] bilateral May 05, 2021 SECONDARY Tinnitus, OLGA CLOUD [facility] 03:36 PM bilateral [facility] [place] [facility] Plan of Treatment: Future Appointments (+ 6 months) and Future Tests (+/- 45 days) The Plan of Treatment section includes future care activities for the patient from all [facility] treatment[facility]ilities. This section includes future appointments and future orders which are active, pending orscheduled.Future Appointments This section includes appointments that were scheduled to occur 6 months from the date of the Encounter, up to a maximum of 20 appointments. The data comes from all [place] treatment facilities. Appointment Date/Time Appointment Type Appointment Facili ty Name Jun 01, 2021 02:00 PM [facility] Jun 02, 2021 12:30 PM [facility] Jun 04, 2021 12:30 PM AMBULATORY [facility] Jun 08, 2021 02:00 PM [facility] [place] [facility] Jun 16, 2021 02:00 PM [facility] Jun 18, 2021 01:00 PM [facility] [place] [facility] Jun 22, 2021 02:00 PM [facility] Jun 23, 2021 01:00 PM [facility] [place] [facility] Jul 07, 2021 11:00 AM AMBULATORY [facility] Jul 13, 2021 02:00 PM [facility] Jul 20, 2021 02:30 PM [facility] Aug 05, 2021 02:00 PM [facility] Aug 16, 2021 02:00 PM [facility] Aug 26, 2021 02:00 PM [facility] Sep 03, 2021 11:00 AM [facility] Oct 28, 2021 02:00 PM [facility] Lab Results: +/- 30 days of the encounter This section includes the Chemistry and Hematology Lab Results on record with [place] for the patient. Radiology Reports and Pathology Reports are provided separately, in subsequent sections.Lab Results This section contains the Chemistry/Hematology Results that were resulted 30 days before or 30 daysafter the date of the Encounter. Date/Time Source Result Type Result - Unit Interpretation Reference Range Comment Apr 20, 2021 [place] VITAMIN D (25-[place]) Specimen Type : SERUM 11:34 AM Comment: GLUCOS E Verified by repeat analysis. CALLED DR NG 04/20/21@9292 [facility] Read-back was completed. Ordering Provid er: ROMULO CHONG Report Released Date/Time: Apr 07, 2021 01:54 PM Reporting Lab: [address] [place] [address] Performing Lab: [facility] [id number] [address] VITAMIN D (25-[place]) <13 L 20-50 Apr 20, 2021 [place] LIPID PANEL FASTING Specimen Ty pe: SERUM 11:34 AM Comment: GLUCOS E Verified by repeat analysis. CALLED DR NG 04/20/21@1432 [facility] Read-back was completed. Ordering Provid er: ROMULO CHONG Report Released Date/Time: Apr 07, 2021 01:54 PM Reporting Lab: [address] [address] Performing Lab: [address] [address] CHOLESTEROL 181 0-199 TRIGLYCERIDE 193 H 0-150 LDL calculated 95 0-129 CHOL/HDL 3.9 HDL CHOLESTEROL 47 40-60 Apr 20, 2021 11:34 [place] LIVER FUNCTION Specimen Typ e: SERUM AM Comment: GLUCOS E Verified by repeat analysis. CALLED DR NG 04/20/21@1432 [facility] Read-back was completed. Ordering Provid er: ROMULO CHONG Report Released Date/Time: Apr 07, 2021 01:54 PM Reporting Lab: [address] [address] Performing Lab: [address] [address] PROTEIN,TOTAL 6.7 6.0-8.3 ALBUMIN 3.3 L 3.5-5.0 ALKALINE PHOSPHATASE 60 40-150 AST 14 5-34 ALT 15 0-55 BILIRUBIN, TOTAL 0.4 0.2-1.2 Apr 20, 2021 [place] HEMOGLOBIN A1C PANEL Specimen T ype: BLOOD 11:34 AM Comment: [facility]in g [facility] Mazariegos Enzymatic with CV <2%. The [...] Apr 07, 2021 01:54 PM Reporting Lab: [address] [address] Performing Lab: [address] [address] HEMOGLOBIN A1C 9.2 H 4.0-5.6 Apr 20, 2021 11:34 AM [place] TSH Specimen Type: SERUM Comment: GLUCOS E Verified by repeat analysis. CALLED DR NG 04/20/21@1432 [facility] Read-back was completed. Ordering Provid er: ROMULO CHONG Report Released Date/Time: Apr 07, 2021 01:54 PM Reporting Lab: [address] [address] Performing Lab: [address] [address] TSH 3.57 0.35-5.00 Apr 20, 2021 [place] BASIC METABOLIC Specimen Type: SERUM 11:34 AM PANEL (fasting) Comment: GLUCOS E Verified by repeat analysis. CALLED DR NG 04/20/21@1432 [facility] Read-back was completed. Ordering Provid er: ROMULO CHONG Report Released Date/Time: Apr 07, 2021 01:54 PM Reporting Lab: [address] [address] Performing Lab: [address] [address] UREA NITROGEN 25 7-25 GLUCOSE 48 LL 65-100 SODIUM 141 135-145 POTASSIUM 4.3 3.5-5.0 CHLORIDE 105 100-110 CO2 29 20-30 CREATININE, Serum 1.82 H 0.50-1.40 eGFR (IDMS) 37 L >60 Apr 20, 2021 [place] MICROALBUMIN Specimen Type: URINE 11:34 AM CREATININE RATIO PANEL No commen t entered. Ordering Provid er: ROMULO CHONG Report Released Date/Time: Apr 07, 2021 01:54 PM Reporting Lab: [address] [address] Performing Lab: [address] [address] MICROALBUMIN/CREATININE RATIO canc 0-29.9 MICROALBUMIN,QUANTITATIVE > 300.0 RR U NAVAIL CREATININE URINE 173.58 Apr 20, 2021 [place] CBC AND DIFF Specimen Type: BLOOD 11:34 AM (AUTO) No comment enter ed. Ordering Provid er: ROMULO CHONG Report Released Date/Time: Apr 07, 2021 01:54 PM Reporting Lab: [address] [address] Performing Lab: [address] [address] WBC 10.37 4.50-11.00 RBC 4.83 4.23-5.66 HGB 14.2 12.8-17 HCT 44.0 39.2-50.4 MCV 91.1 82-99 MCHC 32.3 30.8-35.1 PLT 286 140-360 RDW-CV 13.0 12.0-16.0 Graves, Abs 1.04 0.30-1.10 MCH 29.4 26.2-32.6 Neut % 42.3 Lymph % 42.3 Graves % 10.0 Eos % 4.5 Baso % 0.7 Neut, Abs 4.38 2.20-7.60 Lymph, Abs 4.39 H 1.00-3.20 Eos, Abs 0.47 H 0.03-0.44 Baso, Abs 0.07 0.01-0.13 Immature Gran % 0.2 Immature Gran, Abs 0.02 0.00-0.06 Encounter Notes: All associated encounter notes This section contains the clinical notes associated to the Encounter. Date/Time Encounter Note(s) Provider Source May 05, 2021 01:53 PM AUDIOLOGY E & M NOTE: OLGA CLOUD [facility]N LOCAL TITLE: [facility]UDIOLOGY [facility] STANDARD TITLE: AUDIOLOGY E & M NOTE DATE OF NOTE: MAY 05, 2021@13:53 ENTRY DATE: MAY 05, 2021@13:53:52 AUTHOR: OLGA CLOUD COSIGNER: URGENCY: STATUS: COMPLETED AUDIOLOGY CLINIC Has ADDENDA was seen 05-05-21 for a hearing re-evalu ation. Hearing was last evaluated in 2018. He has not used heari ng aids before. He reports no otologic changes, noting longstanding tinnitus and medica tion-related vertigo. He states that hearing may have decline d. Results are as follow: Otoscopy is WNL for both ears. Pure tone audiome tric testing with headphones revealed a bilateral mild sloping to moderate se nsorineural hearing loss. Testing of the left ear reve aled a mild sensorineural (by history) hearing loss starting at 500 Hz, sloping to a severe loss. As ymmetry, worse left ear, was noted at 3000 Hz. Word recognition scores were f air with 72% correct for the right ear and 76% correct for the left ear for r ecorded speech presented at 85 dB HL (masked). It should be noted that many responses were 'can't make it out'; this improved after reinstruction. Normal tympanograms were obtained bilaterally. Results obtaine d today reflect a shift in pure tone thresholds for both ears in comparison to those from 2018. [place] was counseled on nila christensen's test results. He is considered a candidate and eligible for hearing aids. B inaural RICs with domes were recommended and agrees. He measured a 3 and chose beige for the color. Fitting was scheduled for 06-08-21 at 2pm, RTC placed. /justine/ Ck ELLISON, [facility]-A STAFF LICENSED AND CERTIFIED MIDWIFE Signed: 05/05/2021 15:44 Receipt Acknowledged By: 05/05/2021 15:53 /justine/ EVELYN JEWELL ADVANCED PROCESSING SPEC 05/11/2021 ADDENDUM STATUS: COMPLETED The 's new hearing aids were rece ived this date and placed in the beXD Nutrition cabinet. /justine/ QUENTIN CHAUDHRY AUDIOLOGY HEALTH ASSEMBLER BRAZER Signed: 05/11/2021 09:42
--- OUTSIDE RECORDS SUMMARY | 2022-02-03 00:32 | XMS_ITS ---
:1950 Author Organization Department [facility] rs Address [address] [place] [address] Support Name Relationship Address Phone LORI HOPKINS Unavailable [address] [place] [address] [place] [address] LORI HOPKINS Unavailable [address] [facility] [place] [address] Insurance Providers: All historical and current Section [...] Number Silva JARRED PREFERRED STAND May 08 [id number] PROVIDER SHIVA 2011 [id number] RIAN MILLAN FEDERAL ORGANIZAT SELF ION (PPO) [place]BS [place] PREFERRED STAND May 08 [id number] [phone] JAMES CE PATIENT FEP PROVIDER SHIVA 2010 87 123 RIAN MILLAN ORGANGERMANAT INDIV ION (PPO) IDUAL BCBS OF PREFERRED STAND May 08 [id number] [phone] JAMES CE PATIENT MASS PROVIDER SHIVA 2010 87 3 RIAN MILLAN FEDERAL ORGANIZAT SELF ION (PPO) BCBS OF PREFERRED STAND May 08 [id number] [phone] JAMES CE PATIENT MASS FEP PROVIDER SHIVA 2010 87 6 RIAN MILLAN ORGANIZAT SELF ION (PPO) BCBS OF DENTAL STAND May 08, DENTAL [id number] [phone] SANDEEP, PATIENT MASS FEP INSURANCE SHIVA 2010 87 6 RIAN DENTAL BCBS OF [place] MEDICARE FEP Dec 06 [id number] SANDEEP PATIENT FEP SECONDARY STAND 2019 87 [phone] RIAN MILLAN (NO B SHIVA EXC) MEDSE C CAREMARK PRESCRIPT FEP Dec 06, [id number] SANDEEP PATIENT FEP ION ONLY 2014 0 87 [phone] RIAN MILLAN CARELIONEL PRESCRIPT May 08, [id number] [phone] EDUARDO ENCEstella PATIENT FEP ION 2011 0 87 1 RIAN MILLAN PRESCRIPT CAREM May 08, [id number] [phone] EDUARDO ENCEstella, PATIENT FEP BCBS ION ARK 2011 0 87 1 RIAN FEPRX PLAN CAREMARK PRESCRIPT May 08, [id number] [phone] LAWR ENCE PATIENT FEPRX PLAN ION 2011 0 87 331 RIAN MILLAN-F PRESCRIPT FEPRX May 08, [id number] [phone] LA WRENCE PATIENT EP BCBS ION /PT D 2010 0 87 1 RIAN MILLAN [facility] May 18, [id number] [phone] JAMES CE, [facility]IENT [facility] 2003 32 7 RIAN CE ORGANIZ EXPRESS PRESCRIPT CONNE May 18, [id number] [phone] JAMES CE, PATIENT SCRIPTS ION CTICA 2003 [id number] 7 RIAN ([id number]) RE MEDICARE MEDICARE PART Oct 06, PART B [id number] JAMES CE, PATIENT (WNR) (M) B 2012 UP33 2 [place] MEDICARE MEDICARE PART Oct 06, PART A [id number] JAMES CE, PATIENT (WNR) (M) A 2013 UP33 00 [place] MEDICARE MEDICARE PART Oct 06, PART B [id number] [phone] JAMES CE, PATIENT (WNR) (M) B 2013 UP33 00 [place] MEDICARE MEDICARE PART Oct 06, PART A [id number] 800 Lisa HOPKINS (WNR) (M) A 2013 UP33 [id number] [place] MEDICARE MEDICARE PART Oct 06, PART A [id number] [phone] JAMES CE, PATIENT (WNR) (M) A 2013 UP33 7 [place] MEDICARE MEDICARE PART Oct 06, PART B [id number] [id number] JAMES CE, PATIENT (WNR) (M) B 2012 UP33 7 RIAN MEDICARE MEDICARE PART Oct 06, PART B [id number] 800 Lisa HOPKINS ATIENT (WNR) (M) B 2012 UP33 [id number] RIAN MEDICARE MEDICARE PART Oct 06, PART A [id number] [id number] JAMES CE, PATIENT (WNR) (M) A 2012 UP33 2 RIAN MEDICARE MEDICARE PART Dec 06, PART D [id number] 800 Lisa HOPKINS ATIENT PART D (M) D 2018 UP33 [phone] RIAN (WNR) MEDICARE MEDICARE PART Oct 06, PART D [id number] [phone] JAMES CE, PATIENT PART D (M) D 2012 UP33 7 RIAN (WNR) MEDICARE PRESCRIPT PART Oct 06, PART D [id number] [id number] LAWRE NCE, PATIENT PART D ION D 2012 32A 0 RIAN (WNR) MEDICARE PRESCRIPT PART Oct 06, PART D [id number] [phone] LAWRE NCE, PATIENT PART D ION D 2012 UP33 0 RIAN (WNR) Selected Encounter This section includes the information on record at [place] for the Encounter. Date/Time Encounter Type Encounter Reason Provider Source Description Apr 21, 2021 01:31 Outpatient PRIMARY KIN,MARIBETH PM Encounter CARE/MEDICINE E DAVINA IHE Encounter Template Text not used by [place] Plan of Treatment: Future Appointments (+ 6 months) and Future Tests (+/- 45 days) The Plan of Treatment section includes future care activities for the patient from all [place] treatmentfacilities. This section includes future appointments and future orders which are active, pending orscheduled.Future Appointments This section includes appointments that were scheduled to occur 6 months from the date of the Encounter, up to a maximum of 20 appointments. The data comes from all [place] treatment facilities. Appointment Date/Time Appointment Type Appointment Facili ty Name Apr 22, 2021 01:00 PM AMBULATORY - REHAB MEDICINE [facility] D May 03, 2021 01:45 PM AMBULATORY - MEDICINE [facility] SHANIQUA [facility] May 05, 2021 03:00 PM AMBULATORY - REHAB MEDICINE [facility] Cosmo PANDEY [facility] Jun 01, 2021 02:00 PM [facility] Jun 02, 2021 12:30 PM [facility] Jun 04, 2021 12:30 PM [facility] Jun 08, 2021 02:00 PM AMBULATORY - REHAB MEDICINE IN [facility] Jun 16, 2021 02:00 PM AMBULATORY - [facility]AMP[facility] Jun 18, 2021 01:00 PM AMBULATORY - MEDICINE IN [facility] W[facility]N Curtis CASPER [facility] Jun 22, 2021 02:00 PM [facility]ORY [facility] Jun 23, 2021 01:00 PM AMBULATORY - REHAB MEDICINE IN [facility] W SANDRA [facility] Jul 07, 2021 11:00 AM AMBULATORY - MEDICINE [facility]AMP[facility] Jul 13, 2021 02:00 PM [facility]ORY [facility] Jul 20, 2021 02:30 PM [facility]ORY [facility] Aug 05, 2021 02:00 PM AMBULATORY - [facility]AMP[facility] Aug 16, 2021 02:00 PM AM[facility]UL[facility]ORY [facility] Aug 26, 2021 02:00 PM AMBUL[facility]ORY [facility] Sep 03, 2021 11:00 AM AMBULATORY - REHAB [facility] Lab Results: +/- 30 days of the encounter This section includes the Chemistry and Hematology Lab Results on record with [place] for the patient. Radiology Reports and Pathology Reports are provided separately, in subsequent sections.Lab Results This section contains the Chemistry/Hematology Results that were resulted 30 days before or 30 daysafter the date of the Encounter. Date/Time Source Result Type Result - Unit Interpretation Reference Range Comment Apr 20, 2021 [facility] VITAMIN D (25-[place]) Specimen Type : SERUM 11:34 AM Comment: GLUCOS E Verified by repeat analysis. CALLED DR NG 04/20/21@1432 [facility] Read-back was completed. Ordering Provid er: ROMULO CHONG Report Released Date/Time: Apr 07, 2021 01:54 PM Reporting Lab: [facility] [address] [facility] [address] Performing Lab: [facility] [address] [facility] [address] [address] VITAMIN D (25-OH) <13 L 20-50 Apr 20, 2021 [facility] LIPID PANEL FASTING Specimen Ty pe: SERUM 11:34 AM Comment: GLUCOS E Verified by repeat analysis. CALLED DR NG 04/20/21@1432 [facility] Read-back was completed. Ordering Provid er: ROMULO CHONG Report Released Date/Time: Apr 07, 2021 01:54 PM Reporting Lab: [facility] [address] [facility] [address] Performing Lab: [address] [address] CHOLESTEROL 181 0-199 TRIGLYCERIDE 193 H 0-150 LDL calculated 95 0-129 CHOL/HDL 3.9 HDL CHOLESTEROL 47 40-60 Apr 20, 2021 [facility] HEMOGLOBIN A1C PANEL Specimen T ype: BLOOD 11:34 AM Comment: Testin g performed by [facility] certified Mazariegos Enzymatic with CV <2%. The [...] Apr 07, 2021 01:54 PM Reporting Lab: [address] [address] Performing Lab: [address] [address] HEMOGLOBIN A1C 9.2 H 4.0-5.6 Apr 20, 2021 11:34 [facility]AMP[facility] LIVER FUNCTION Specimen Typ e: SERUM AM Comment: GLUCOS E Verified by repeat analysis. CALLED DR NG 04/20/21@1432 [facility] Read-back was completed. Ordering Provid er: ROMULO CHONG Report Released Date/Time: Apr 07, 2021 01:54 PM Reporting Lab: [address] [address] Performing Lab: [address] [address] PROTEIN,TOTAL 6.7 6.0-8.3 ALBUMIN 3.3 L 3.5-5.0 ALKALINE PHOSPHATASE 60 40-150 AST 14 5-34 ALT 15 0-55 BILIRUBIN, TOTAL 0.4 0.2-1.2 Apr 20, 2021 11:34 AM CAMPUS TSH Specimen Type: SERUM Comment: GLUCOS E Verified by repeat analysis. CALLED DR NG 04/20/21@1432 [facility] Read-back was completed. Ordering Provid er: ROMULO CHONG Report Released Date/Time: Apr 07, 2021 01:54 PM Reporting Lab: [facility] [address] [address] Performing Lab: [address] [address] TSH 3.57 0.35-5.00 Apr 20, 2021 [facility]AMPUS MICROALBUMIN Specimen Type: URINE 11:34 AM CREATININE RATIO PANEL No commen t entered. Ordering Provid er: ROMULO CHONG Report Released Date/Time: Apr 07, 2021 01:54 PM Reporting Lab: [facility] [address] [facility] [address] Performing Lab: [facility] [address] [address] MICROALBUMIN/CREATININE RATIO canc 0-29.9 MICROALBUMIN,QUANTITATIVE > 300.0 RR U NAVAIL CREATININE URINE 173.58 Apr 20, 2021 [facility]AMP[facility] BASIC METABOLIC Specimen Type: SERUM 11:34 AM PANEL (fasting) Comment: GLUCOS E Verified by repeat analysis. CALLED DR NG 04/20/21@1432 [facility] Read-back was completed. Ordering Provid er: ROMULO CHONG Report Released Date/Time: Apr 07, 2021 01:54 PM Reporting Lab: [facility] [address] [address] Performing Lab: [address] [address] UREA NITROGEN 25 7-25 GLUCOSE 48 LL 65-100 SODIUM 141 135-145 POTASSIUM 4.3 3.5-5.0 CHLORIDE 105 100-110 CO2 29 20-30 CREATININE, Serum 1.82 H 0.50-1.40 eGFR (IDMS) 37 L >60 Apr 20, 2021 [facility]AMPUS CBC AND DIFF Specimen Type: BLOOD 11:34 AM (AUTO) No comment enter ed. Ordering Provid er: ROMULO CHONG Report Released Date/Time: Apr 07, 2021 01:54 PM Reporting Lab: [facility] [address] [facility] [facility] [address] Performing Lab: [address] [address] WBC 10.37 4.50-11.00 RBC 4.83 4.23-5.66 HGB 14.2 12.8-17 HCT 44.0 39.2-50.4 MCV 91.1 82-99 MCHC 32.3 30.8-35.1 PLT 286 140-360 RDW-CV 13.0 12.0-16.0 [place], Abs 1.04 0.30-1.10 MCH 29.4 26.2-32.6 Neut % 42.3 Lymph % 42.3 [place] % 10.0 Eos % 4.5 Baso % 0.7 Neut, Abs 4.38 2.20-7.60 Lymph, Abs 4.39 H 1.00-3.20 Eos, Abs 0.47 H 0.03-0.44 Baso, Abs 0.07 0.01-0.13 Immature Gran % 0.2 Immature Gran, Abs 0.02 0.00-0.06 Encounter Notes: All associated encounter notes This section contains the clinical notes associated to the Encounter. Date/Time Encounter Note(s) Provider Source Apr 21, 2021 01:31 PM PRIMARY CARE SECURE MESSAGING: MAGNUS SANDERSON [facility] LOCAL TITLE: PRIMARY CARE SECURE MESSAGING [facility] STANDARD TITLE: PRIMARY CARE SECURE MESSAGING DATE OF NOTE: APR 21, 2021@13:31 ENTRY DATE: APR 21, 2021@13:31:18 AUTHOR: MAGNUS SANDERSON COSIGNER: URGENCY: STATUS: COMPLETED ------Original Message Sent: 04/21/2021 12:37 PM From: RIAN HOPKINS To: Nisa CHONG_PRIMARY CARE_[facility] Subject: appointment to video My would like to chain my appointment to a video so she can be there to help me with any question that I am not sure off . And if we have any question that we need to look up for the answerers . Carlton Rangel #[id number] /es/ Magnus Sanderson RN Registered Nurse Signed: 04/21/2021 13:31 Receipt Acknowledged By: * AWAITING SIGNATURE * CORDELL MCWILLIAMS
--- OUTSIDE RECORDS SUMMARY | 2022-02-03 00:32 | XMS_ITS | Encounter Summary ---
:1950 Author Organization Department of [facility] Address [address] [place] [address] Support Name Relationship Address Phone JEANINE HOPKINS Unavailable [address] [facility] [place] [place] [address] JEANINE HOPKINS Unavailable [address] [facility] [place] [address] Insurance Providers: All historical and current Section Date Range: From patient's date of to the date document was created.This section includes the names of all active insurance providers for the patient. Insurance Type of Plan Start of End of Group Member Insurance Policy P atient's Provider Coverage Name Policy Policy Number ID Provider's Silva's Relationship Coverage Coverage Telephone Name to Policy Number Silva ANTHZARA PREFERRED STAND May 08 [id number] PROVIDER SHIVA 2011 [id number] RIAN MILLAN FEDERAL ORGANIZAT SELF ION (PPO) BCBS [place] PREFERRED STAND May 08 [id number] [phone] JAMES CE PATIENT FEP PROVIDER SHIVA 2010 [id number] RIAN MILLAN ORGANGERMANAT INDIV ION (PPO) IDUAL BCBS OF PREFERRED STAND May 08 [id number] [phone] JAMES CE PATIENT MASS PROVIDER SHIVA 2010 [id number] RIAN MILLAN FEDERAL ORGANIZAT SELF ION (PPO) BCBS OF PREFERRED STAND May 08 [id number] [phone] JAMES CE PATIENT MASS FEP PROVIDER SHIVA [phone] [id number] RIAN MILLAN ORGANIZAT SELF ION (PPO) BCBS OF DENTAL STAND May 08, DENTAL [id number] [phone] SANDEEP, PATIENT MASS FEP INSURANCE SHIVA [phone] [id number] RIAN DENTAL [place] OF [place] MED[place] F[place] Dec 06 [id number] SANDEEP PATIENT FEP SECONDARY STAND 2019 [phone] RIAN MILLAN (NO B SHIVA EXC) MEDSE C CAREMARK PRESCRIPT FEP Dec 06, [id number] SANDEEP PATIENT FEP ION ONLY 2014 [phone] RIAN MILLAN CARELIONEL PRESCRIPT May 08, [id number] [phone] EDUARDO MATTHEW PATIENT FEP ION 2011 0 [id number] 1 RIAN MILLAN PRESCRIPT CAREM May 08, [id number] [phone] EDUARDO MATTHEW, PATIENT FEP BCBS ION ARK 2011 0 [id number] 1 RIAN FEPRX PLAN CAREMARK PRESCRIPT May 08, [id number] [phone] ENCE PATIENT FEPRX PLAN ION 2011 [id number] [phone] RIAN MILLAN-F PRESCRIPT FEPRX May 08, [id number] [phone] LA WRENCE PATIENT EP BCBS ION /PT D 2010 0 [id number] 1 RIAN MILLAN [facility] May 18, [id number] [phone] JAMES CE, PATIENT RE JONATAN AL 2003 32 [id number] RIAN CE ORGANIZ EXPRESS PRESCRIPT CONNE May 18, [id number] [phone] JAMES CE, PATIENT SCRIPTS ION CTICA 2002 [id number] RIAN ([id number]) RE MEDICARE MEDICARE PART Oct 06, PART A [id number] Lisa HOPKINS (WNR) (M) A 2012 UP33 [phone] RIAN MEDICARE MEDICARE PART Oct 06, PART B [id number] Lisa HOPKINS (WNR) (M) B 2012 UP33 [phone] RIAN MEDICARE MEDICARE PART Oct 06, PART A [id number] [phone] JAMES CE, PATIENT (WNR) (M) A 2013 UP33 00 JOSEPH MEDICARE MEDICARE PART Oct 06, PART B [id number] [phone] JAMES CE, PATIENT (WNR) (M) B 2013 UP33 00 JOSEPH MEDICARE MEDICARE PART Oct 06, PART A [id number] [id number] JAMES CE, PATIENT (WNR) (M) A 2013 UP33 2 RIAN MEDICARE MEDICARE PART Oct 06, PART A [id number] AJMES CE, PATIENT (WNR) (M) A 2013 UP33 7 RIAN MEDICARE MEDICARE PART Oct 06, PART B [id number] [phone] JAEMS CE, PATIENT (WNR) (M) B 2012 UP33 7 RIAN MEDICARE MEDICARE PART Oct 06, PART B [id number] JAMES CE, PATIENT (WNR) (M) B 2012 UP33 2 RIAN MEDICARE MEDICARE PART Dec 06, PART D [id number] SANDEEPLisa ATIENT PART D (M) D 2018 [id number] [phone] RIAN (WNR) MEDICARE PRESCRIPT PART Oct 06, PART D [id number] LAWRE NCE, PATIENT PART D ION D 2012 [id number] RIAN (WNR) MEDICARE PRESCRIPT PART Oct 06, PART D [id number] [phone] LAWRE NCE, PATIENT PART D ION D 2012 UP33 0 RIAN (WNR) MEDICARE MEDICARE PART Oct 06, PART D [id number] JAMES CE, PATIENT PART D (M) D 2012 [id number] 7 RIAN (WNR) Selected Encounter This section includes the information on record at [place] for the Encounter. Date/Time Encounter Type Encounter Reason Provider Source Description Apr 21, 2021 OFFICE O/P EST PRIMARY ICD-10-CM M25.569 NADAZDIN-ESTHER KO 11:00 AM HI 40-54 MIN CARE/MEDICINE Pain in ROMULO RUSSELL unspecified knee with Provider Comments: Pain in unspecified Knee IHE Encounter Template Text not used by [facility] Assessments - Encounter Diagnoses This section includes the primary and secondary diagnoses documented for the Encounter. Date/Time Primary/Secondary Diagnosis Name Provider Source Diagnosis Apr 21, 2021 PRIMARY Pain in unspecified NADAZDIN-BOSKO [place] 07:29 PM knee ROMULO RUSSELL Apr 21, 2021 SECONDARY Disorder of kidney [place]OCENTE [place] 07:29 PM and ureter, ROMULO RUSSELL unspecified Apr 21, 2021 SECONDARY Essential (primary) NADAZDIN-BOSKO [place] 07:29 PM hypertension ROMULO RUSSELL Apr 21, 2021 SECONDARY Mixed hyperlipidemia [place] 07:29 PM ROMULO RUSSELL Apr 21, 2021 SECONDARY Obstructive sleep BIBIAZDINLEVON PICKARDFI ELD 07:29 PM apnea (adult) ROMULO RUSSELL (pediatric) Apr 21, 2021 SECONDARY Other obesity BIBIWVCAMERONIBETH [facility] 07:29 PM ROMULO RUSSELL Apr 21, 2021 SECONDARY Type 2 diabetes [facility] [place] 07:29 PM mellitus without ROMULO RUSSELL complications Plan of Treatment: Future Appointments (+ 6 months) and Future Tests (+/- 45 days) The Plan of Treatment section includes future care activities for the patient [facility] This section includes future appointments and future orders which are active, pending orscheduled.Future Appointments This section includes appointments that were scheduled to occur 6 months from the date of the Encounter, up to a maximum of 20 appointments. The data comes from all [place] treatment facilities. Appointment Date/Time Appointment Type Appointment Facili ty Name Apr 22, 2021 01:00 PM AMBULATORY - REHAB [facility] May 03, 2021 01:45 PM AMBULATORY MEDICINE [facility] May 05, 2021 03:00 PM [facility] Jun 01, 2021 02:00 PM AMBULATORY [facility] Jun 02, 2021 12:30 PM AMBULATORY [facility] Jun 04, 2021 12:30 PM AMBULATORY [facility] Jun 08, 2021 02:00 PM [facility] [place] [facility] Jun 16, 2021 02:00 PM AMBULATORY [facility] Jun 18, 2021 01:00 PM AMBULATORY MEDICINE [facility] [place] [place] [facility] Jun 22, 2021 02:00 PM AMBULATORY [facility] Jun 23, 2021 01:00 PM [facility] [place] [facility] Jul 07, 2021 11:00 AM AMBULATORY - MEDICINE [facility] Jul 13, 2021 02:00 PM AMBULATORY PSYCHIATRY [facility] Jul 20, 2021 02:30 PM AMBULATORY [facility] Aug 05, 2021 02:00 PM AMBULATORY [facility] Aug 16, 2021 02:00 PM AMBULATORY PSYCHIATRY [facility] Aug 26, 2021 02:00 PM AMBULATORY [facility] Sep 03, 2021 11:00 AM AMBULATORY - REHAB MEDICINE [facility] Lab Results: +/- 30 days of the encounter This section includes the Chemistry and Hematology Lab Results on record with [place] for the patient. Radiology Reports and Pathology Reports are provided separately, in subsequent sections.Lab Results This section contains the Chemistry/Hematology Results that were resulted 30 days before or 30 daysafter the date of the Encounter. Date/Time Source Result Type Result - Unit Interpretation Reference Range Comment Apr 20, 2021 [facility] VITAMIN D (25-OH) Specimen Type : SERUM 11:34 AM Comment: GLUCOS E Verified by repeat analysis. CALLED DR NG 04/20/21@1432 [facility] Read-back was completed. Ordering Provid er: ROMULO CHONG Report Released Date/Time: Apr 07, 2021 01:54 PM Reporting Lab: [facility] [address] [facility] [address] Performing Lab: [address] [address] VITAMIN D (25-OH) <13 L 20-50 Apr 20, 2021 [facility] LIPID PANEL FASTING Specimen Ty pe: SERUM 11:34 AM Comment: GLUCOS E Verified by repeat analysis. CALLED DR NG 04/20/21@1432 [facility] Read-back was completed. Ordering Provid er: ROMULO CHONG Report Released Date/Time: Apr 07, 2021 01:54 PM Reporting Lab: [facility] [address] [facility] [address] Performing Lab: [address] [address] CHOLESTEROL 181 0-199 TRIGLYCERIDE 193 H 0-150 LDL calculated 95 0-129 CHOL/HDL 3.9 HDL CHOLESTEROL 47 40-60 Apr 20, 2021 [facility] BASIC METABOLIC Specimen Type: SERUM 11:34 AM PANEL (fasting) Comment: GLUCOS E Verified by repeat analysis. CALLED DR NG 04/20/21@1432 [facility] Read-back was completed. Ordering Provid er: ROMULO CHONG Report Released Date/Time: Apr 07, 2021 01:54 PM Reporting Lab: [address] [address] Performing Lab: [address] [address] UREA NITROGEN 25 7-25 GLUCOSE 48 LL 65-100 SODIUM 141 135-145 POTASSIUM 4.3 3.5-5.0 CHLORIDE 105 100-110 CO2 29 20-30 CREATININE, Serum 1.82 H 0.50-1.40 eGFR (IDMS) 37 L >60 Apr 20, 2021 [facility] HEMOGLOBIN A1C PANEL Specimen T ype: BLOOD 11:34 AM Comment: Testin g performed [facility] certified Mazariegos Enzymatic with CV <2%. The [...] Apr 07, 2021 01:54 PM Reporting Lab: [address] [address] Performing Lab: [address] [address] HEMOGLOBIN A1C 9.2 H 4.0-5.6 Apr 20, 2021 11:34 [facility] LIVER FUNCTION Specimen Typ e: SERUM AM Comment: GLUCOS E Verified by repeat analysis. CALLED DR NG 04/20/21@[address] [place] [address] Read-back was completed. Ordering Provid er: ROMULO CHONG Report Released Date/Time: Apr 07, 2021 01:54 PM Reporting Lab: [address] [address] Performing Lab: [address] [address] PROTEIN,TOTAL 6.7 6.0-8.3 ALBUMIN 3.3 L 3.5-5.0 ALKALINE PHOSPHATASE 60 40-150 AST 14 5-34 ALT 15 0-55 BILIRUBIN, TOTAL 0.4 0.2-1.2 Apr 20, 2021 11:34 AM [facility] TSH Specimen Type: SERUM Comment: GLUCOS E Verified by repeat analysis. CALLED DR NG 04/20/21@6968 [facility] Read-back was completed. Ordering Provid er: ROMULO CHONG Report Released Date/Time: Apr 07, 2021 01:54 PM Reporting Lab: [facility] [place] [facility] [address] [facility] [address] Performing Lab: [facility] [place] [facility] [address] [facility] [address] TSH 3.57 0.35-5.00 Apr 20, 2021 [facility] MICROALBUMIN Specimen Type: URINE 11:34 AM CREATININE RATIO PANEL No commen t entered. Ordering Provid er: ROMULO CHONG Report Released Date/Time: Apr 07, 2021 01:54 PM Reporting Lab: [facility] [place] [facility] [address] [facility] [address] Performing Lab: [facility] [place] [facility] [address] [facility] [address] MICROALBUMIN/CREATININE RATIO canc 0-29.9 MICROALBUMIN,QUANTITATIVE > 300.0 RR U NAVAIL CREATININE URINE 173.58 Apr 20, 2021 [facility] CBC AND DIFF Specimen Type: BLOOD 11:34 AM (AUTO) No comment enter ed. Ordering Provid er: ROMULO CHONG Report Released Date/Time: Apr 07, 2021 01:54 PM Reporting Lab: [facility] [place] [facility] [address] [facility] [address] Performing Lab: [facility] [address] [address] WBC 10.37 4.50-11.00 RBC 4.83 4.23-5.66 HGB 14.2 12.8-17 HCT 44.0 39.2-50.4 MCV 91.1 82-99 MCHC 32.3 30.8-35.1 PLT 286 140-360 RDW-CV 13.0 12.0-16.0 Kimble, Abs 1.04 0.30-1.10 MCH 29.4 26.2-32.6 Neut % 42.3 Lymph % 42.3 Kimble % 10.0 Eos % 4.5 Baso % 0.7 Neut, Abs 4.38 2.20-7.60 Lymph, Abs 4.39 H 1.00-3.20 Eos, Abs 0.47 H 0.03-0.44 Baso, Abs 0.07 0.01-0.13 Immature Gran % 0.2 Immature Gran, Abs 0.02 0.00-0.06 Social History: Smoking Status (Most current) and Tobacco Use (All prior to encounter date) This section includes the most current, and the historical, smoking and tobacco-related health factors from the [place] facility where the Encounter took place.Current Smoking Status This section includes the most current smoking, or tobacco-related health factor, from the [place] facility where the Encounter took place. Date/Time Current Smoking Status Comment Facility September 17, 2020 02:00 PM VA-TOBACCO FORMER USER [facility] Tobacco Use History This section includes a history of the smoking, or tobacco- related health factors, that were collected on or before the date of the Encounter. The data comes from the [place] facility where the Encounter took place. Date/Time Smoking Status/Tobacco Use Comment [facility] September 17, 2020 02:00 PM VA-TOBACCO QUIT 15 YRS OR [facility] Jan 10, 2020 02:00 PM VA-TOBACCO FORMER USER [facility] Jan 10, 2020 02:00 PM VA-TOBACCO QUIT 15 YRS OR [facility] Mar 23, 2018 02:31 PM VA-TOBACCO FORMER USER [facility] Mar 23, 2018 02:31 PM VA-TOBACCO QUIT 15 YRS OR [facility] September 19, 2017 01:43 PM QUIT TOBACCO USE > 7 YEARS [facility] September 15, 2016 01:21 PM QUIT TOBACCO USE > 7 YEARS [facility] A[facility] quit 40 years ago May 12, 2015 10:44 AM QUIT TOBACCO USE > 7 YEARS [facility] Dec 27, 2006 10:00 AM QUIT TOBACCO USE > 7 YEARS [facility] Dec 26, 2005 08:41 AM QUIT TOBACCO USE 1-7 YEARS [facility] Aug 11, 2005 08:42 AM QUIT TOBACCO USE IN PAST S [facility] Dec 09, 2004 08:20 AM QUIT TOBACCO USE IN PAST S 2003Apr 02, 2004 08:07 AM QUIT TOBACCO USE IN PAST S Quit several wks ago Jun 02, 2003 01:48 PM CURRENT SMOKER RADAH Reece States ocassionally Jan 31, 2002 01:44 PM HISTORY OF SMOKING WEST[place] IELD stopped tobacco 1 year ago Jan 31, 2002 01:44 PM QUIT TOBACCO USE 1-7 YEARS VINOD AGO Apr 25, 2001 03:26 PM NON-TOBACCO USER MATHEUS JONES Stopped tobacco 3 years ago September 12, 2000 03:24 PM HISTORY OF SMOKING WESTLEY HUI Quit cigaretts 2 years ago Encounter Notes: All associated encounter notes This section contains the clinical notes associated to the Encounter. Date/Time Encounter Note(s) Provider Source Apr 21, 2021 07:34 PM LETTERS: TARAS CHONG [facility] TITLE: PATIENT LETTER (B) LYUBOV ANAYA TITLE: LETTERS DATE OF NOTE: APR 21, 2021@19:34 ENTRY DATE: APR 21, 2021@19:34:29 AUTHOR: Nisa CHONG COSIGNER: URGENCY: STATUS: COMPLETED APR 21, 2021 RIAN HOPKINS [address] [id number]@[email or web address] [email or web address], [place], [id number] Dear RIAN HOPKINS, You recently had a sleep test that showed SEVERE obstructive sleep apnea. A copy is enclosed for your records and to share with your NON [facility] provider as we discussed today. Study Date: 04/02/2021 BMI: 38.2 Interpreted by: Selena Hook MD IMPRESSION: 1. SEVERE Obstructive Sleep Apnea Syndrome: The patient has an overall HST-TARA of 55.3/hr on this study with associate d oxygen desaturations. The mean arterial oxygen saturation on room air was 92.4 % and nadired to 81.0%. The saturation time < 90% was 53.6 minut es, 13.7% of total recording time. RECOMMENDATIONS: 1. Continued treatment with PAP therapy is recom mended for patient's TRENTON. If current CPAP pressure is known, continue with current CPAP pressure. Alternatively, can also star t patient on APAP empirically on setting of 6-20 cm H20. Follow up patient clinically to assess resp onse with APAP. Download of APAP/CPAP data to ensure efficacy of APAP and patient's adherence Please call [phone] and speak with my nurse Peri if you have any questions or concerns. Sincerely, Romulo Grossman MD [facility] [address] [place] [phone] Apr 21, 2021 07:29 PM LETTERS: TARAS CHONG [facility] TITLE: PATIENT LETTER (B) LYUBOV Acevedo STANDARD TITLE: LETTERS DATE OF NOTE: APR 21, 2021@19:29 ENTRY DATE: APR 21, 2021@19:29:49 AUTHOR: Nisa CHONG EXP COSIGNER: URGENCY: STATUS: COMPLETED APR 21, 2021 RIAN HOPKINS [address] [facility] [id number]@[email or web address] [email or web address], [place], [id number] Dear RIAN HOPKINS, Thank you for coming in for your lab tests. Your recent test results are as follows: LAB CHEMISTRY & HEMATOLOGY Collection DT Specimen Test Name Result Units Re f Range 04/20/2021 11:34 URINE mALB/Cr canc mg/G 0 - 29. 9 MicroAl > 300.0 mg/dL Ref: RR CREATININE URINE 173.58 mg/dL 04/20/2021 11:34 BLOOD WBC 10.37 K/cmm 4.50 - 11 .00 Neut % 42.3 % Lymph % 42.3 % Kimble % 10.0 % Eos % 4.5 % Baso % 0.7 % Immature Gran % 0.2 % Neut, Abs 4.38 K/cmm 2.20 - 7.60 Lymph, Abs 4.39 H K/cmm 1.00 - 3.20 Kimble, Abs 1.04 K/cmm 0.30 - 1.10 Eos, Abs 0.47 H K/cmm 0.03 - 0.44 Baso, Abs 0.07 K/cmm 0.01 - 0.13 Immature Gran, Ab 0.02 K/cmm 0.00 - 0.06 RBC 4.83 M/cmm 4.23 - 5.66 HGB 14.2 g/dL 12.8 - 17 HCT 44.0 % 39.2 - 50.4 MCV 91.1 fl 82 - 99 MCH 29.4 pg 26.2 - 32.6 MCHC 32.3 g/dL 30.8 - 35.1 RDW-CV 13.0 % 12.0 - 16.0 PLT 286 K/cmm 140 - 360 !! CREATININE, Serum 1.82 H mg/dL 0.50 - 1.40 !! eGFR (IDMS) 37 L Ref: >=60 !! VITAMIN D (25-OH) <13 L ng/mL 20 - 50 !! SODIUM 141 mmol/L 135 - 145 !! POTASSIUM 4.3 mmol/L 3.5 - 5.0 !! CHLORIDE 105 mmol/L 100 - 110 !! CO2 29 mEq/L 20 - 30 !! UREA NITROGEN 25 mg/dL 7 - 25 !! GLUCOSE 48 L* mg/dL 65 - 100 !! PROTEIN,TOTAL 6.7 g/dL 6.0 - 8.3 !! ALBUMIN 3.3 L g/dL 3.5 - 5.0 !! ALK DERRICK 60 U/L 40 - 150 !! AST 14 U/L 5 - 34 !! BILIRUBIN, TOTAL 0.4 mg/dL 0.2 - 1.2 !! CHOLESTEROL 181 mg/dL 0 - 199 !! ALT 15 U/L 0 - 55 Lipid Profile Collection DT Specimen Test Name Result Units Re f Range 04/20/2021 11:34 SERUM !! CHOLESTEROL 181 mg/dL 0 - 199 04/20/2021 11:34 SERUM !! TRIGLYCERIDE 193 H mg/ dL 0 - 150 04/20/2021 11:34 SERUM !! HDL CHOLESTEROL 47 mg/ dL 40 - 60 04/20/2021 11:34 SERUM !! LDL calculated 95 mg/d L 0 - 129 04/20/2021 11:34 SERUM !! CHOL/HDL 3.9 04/20/2021 11:34 BLOOD !! HEMOGLOBIN A1C 9.2 H % 4.0 - 5.6 Thyroid Test Collection DT Spec TSH 04/20/2021 11:34 SERUM 3.57 If you do not already do so, going forward, I in iveth you to view your labs in [facility]. Please call [phone] and speak with my nurse Peri if you have any questions or concerns. Sincerely, Romulo Grossman MD [facility] - Primary Care [address] [place] [address] [phone] Apr 21, 2021 10:57 AM PHYSICIAN NOTE: ARLETTEOGNJ [facility] TITLE: MD KAIDEN Acevedo STANDARD TITLE: PHYSICIAN NOTE DATE OF NOTE: APR 21, 2021@10:57 ENTRY DATE: APR 21, 2021@10:57:55 AUTHOR: Nisa CHONG EXP COSIGNER: URGENCY: STATUS: COMPLETED NOTE Has ADDENDA Pt is 70 y/o M with PMH of o besity BMI 38, HTN, HL, CAD, IDDM2, CKD3, TRENTON, GERD, RLS, OA, chronic pain, PTSD, insomnia Initial visit with me Last visit with PCP Dr Connolly 10/2019 PCP is NON [facility] DR Cordell Fischer in [place] - q 1m Other providers: -- [facility] -- [facility] -- Dr. Jhvaeri, Endocrine[facility]q3m -- Dr Hillman eye -- ortho dafne Russo - shoulder /knee -- non [facility] renal [place] -- non [facility] cardiology dr Sena --> 05/06/2021 pt's was present during visit today, helped with med reconciliation and HPI. they prefer [facility] visits over f2f. pt main concerns today are hearing loss and R kn ee pain # b/l knee pain - s/p medial meniscectomy 04/2020 Dr Rafaela France ke still with stiffness, pain, intermittent swellin g, denies redness, not hot he was referred by ortho to pain management Dr Volodymyr bryson for knee injections per pt he received knee injection 3x within this year and completed PT w/o improvement in sx. he ambulates with his 's walker . he would like to get his own walker through the [facility]. he has f/u with ortho scheduled for 05/03/2021- needs updated referral #persistent LBP had several back surgeries in the past and is on narcotics rx by non VA PCP #CAD/HTN/HL compliant with medications denies CP/SOB/RENDON/palpitations/dizziness /claudi cation -has cardiol f/u later this month #DM2 - managed by non VA endo fasting glucose today 225, range recently 190-20 0s never <100 pt had FASTING blood work yesterday - gl ucose 48 - he reports feeling woozy at the time of blood work sx improved with several mints pt reports that fasting gluc ose yesterday was 281 and he took his usual insulin dose: basal 25 units and bolus 15 units but did not gagnon ve breakfast because he was scheduled for fasting labs at [place]. pt did not know that if he s kipps meal he should not take bolus insulin. denies other episodes of hypoglycemia. does not have gl ucose tablets. four months ago he was started on trulicity and A1c improved from 11 to 9. #obesity BMI 30 , current weight 250 lb due to knee/LBP mainly sedentary regular diet #BP at home today 161/79. managed by renal, card io, non VA PCP not fully compliant with low salt diet #TRENTON on CPAP (non VA) -> managed by non VA provi gonzales CPAP machine replaced in 04/2020 he had sleep study last month (20 years after in [facility])--> severe TRENTON he is compliant with cpap PAST MEDICAL HISTORY: -- obesity -- HL -- HTN -- DM2 complications of neuropathy -- CAD -- CKD3 -- TRENTON -sleep study 03/2021 --severe TRENTON HST-TARA of 55.3/hr -- GERD -- RLS -- Chronic pain opioid pain agreement signed 06/08 4 uds ok DPH check ok 08/15/13 -- Herniated Disc -- OA -- Tear of left rotator cuff [facility] -- Glaucoma -- Insomnia -- PTSD PAST SURGICAL HISTORY: -- shoulder Left (2x) -- L meniscal tear -- s/p medial meniscectomy 04/2020 Dr Rafaela barfield -- L elbow for tennis elbow -- back surgery 3x -- L eye several surgeries ALLERGIES:sulfur -rash, naproxen - BRE, Brimonid ine, TImolol, Bimatoprost MEDICATIONS: --Non-VA ASPIRIN 81MG --ATORVASTATIN CALCIUM 80MG --Non-VA FENOFIBRATE TAB 54MG BY MOUTH DAILY --METOPROLOL TARTRATE 50MG TWICE DAILY --Non-VA AMLODIPINE BESYLATE 5MG --Non-VA LOSARTAN POTASSIUM 100MG --Non-VA FUROSEMIDE 40MG BID --non va trulicity 3mg weekly (01/2021) --INSULIN NPH HUMAN 100 U/ML INJ NOVOLIN N INJEC T 25 UNITS ACTIVE SUBCUTANEOUSLY EVERY DAY AND INJECT 40 UNITS AT BEDTIME FOR DIABETES PRESCRIBER : DR. LYNNETTE LEE --INSULIN,ASPART,HUMAN 100 UNIT/ML INJ INJECT 10 UNITS ACTIVE SUBCUTANEOUSLY EVERY MORNING 30 MINUTES BEFORE BREAKFAST NEEDED AND INJECT 15 UNITS EVERY EVENING --OMEPRAZOLE 40MG BEFORE BREAKFAST --Non-VA ROPINIROLE HCL 3MG HS --DULOXETINE HCL 90MG ONCE DAILY FOR MOOD --MIRTAZAPINE 7.5MG tappering off per MH --MELATONIN 3mg prn --BACLOFEN 10MG TAB ONCE DAILY MUSCLE RIGIDITY --Non-VA OXYCODONE HCL 10MG/APAP 325MG TAB 1 TAB LET BY MOUTH ACTIVE EVERY 4 TO 6 HOURS NEEDED (150 /month) --non hydroxizine 25mg daily --Non-VA VITAMIN E 200 --non VA fish oil----- --COAL TAR 7.5% TOP EMULSION APPLY SMALL TWICE D AILY --BETAMETHASONE DIPROPIONATE 0.05% CREAM APPLY --TRIAMCINOLONE ACETONIDE 0.1% CREAM --ammonium lactate 12% --eye drops FAMILY HISTORY: --Cancer: mother ?, father -throat cancer --VT: mother VT in 60s --CVA: SOCIAL HISTORY: --Occupation:retired --Cohabitation:, lives with his --Children: 2 --Diet: regular --Exercise: none --Caffeine: none --EtOH: 1-2x weekly --Tob: quit 30 years ago --MJ:denies --Illicits:denies --Sexual activity: --Eye: UTD --Dental: partials --Hospitalizations: none ROS: Constitutional: no fever/no chills, no ns Eyes: no change in vision Ears/Nose/Throat: no hearing change Respiratory: no cough/wheezing/SOB Cardiovascular: no CP /palpitations/le edema Gastrointestinal: no abdominal pain/bloody/miranda k stools :no dysuria/hematuria/trouble voiding MSK: Knee pain Neuro: no dizziness/H/A Skin: no pruritus/rash ambulate with a walker (knee pain) PHYSICAL EXAM: Vital Signs:n/a LABORATORY (Discussed with the patient):04/2021 WBC: 10.37 HGB: 14.2 HCT: 44.0 MCV: 91.1 PLT: 286 HGB A1C (WR): 9.2 H --> GLUCOSE: 48 L* UREA NITROGEN: 25 CREATININE-EGFR: 1.82 H --> eGFR(IDMS): 37 L SODIUM: 141 POTASSIUM: 4.3 CHLORIDE: 105 CO2: 29 PROTEIN,TOTAL: 6.7 ALBUMIN: 3.3 L ALKALINE PHOSPHATASE: 60 BILIRUBIN,TOT.: 0.4 SGOT: 14 SGPT: 15 CHOLESTEROL: 181 TRIGLYCERIDE: 193 H LDL CHOL: 95 CHOL/HDL RATIO: 3.9 HDL: 47 TSH (Access): 3.57 VITAMIN D TOTAL: <13 L MICROALB/CR RATIO: canc MICROALBUMIN URINE: > 300.0 CREATININE URINE: 173.58 ASSESSMENT/PLAN: Pt is 70 y/o M with PMH of o besity BMI 38, HTN, HL, CAD, CKD3, IDDM2, TRENTON, GERD, RLS, OA, chronic pain, PTSD, insomnia #Obesity BMI 38 - -started on trulicity by non [facility] provider 01/2021 -declined MOVE # DM2 - uncontrolled A1c 9.2 -c/w basal/bolus/trulicity -reviewed diet/portion size with pt -f/w non VA endo q3m #hypoglycemia : one episode per pt not recurrent -educated pt not to take bolus insulin when skip ping meal -will mail glucose tablets #HTN - uncontrolled, today 161/79, goal <130/80 reviewed diet, -restart self monitoring and bring log to next cardiology visit later this month -until then advised to take amlodipine 10mg -mds are managed by non VA -f/w renal, cardio #HL: well controlled LDL [address] atin #CKD3 -discussed improtance of HTN/DM control -avoid NSAIDs -f/w non VA renal #vit Ddef: -s/w D3 25mcg daily #TRENTON #03/2021 severe TRENTON HST-TARA of 55.3/hr time < 90% was 53.6 minutes, 13.7% of total -encoraged regular CPAP use -monitoring with non [facility] provider #hearing loss -pt will schedule with [facility] audiology #Knee pain: s/p medial meniscectomy 04/2020 Dr Estella Beckham - referral to [facility] ortho for continuity of care - referral to PT for a walker Healthcare maintenance: --Lipids: LDL 95 (04/2021) --Diabetes: A1c 9.2 (04/2021) --Colon CA (50-75): per pt 3-4 years age- after diverticulitis-> no polyps-repeat in 10 y managed by private PCP -->will obtain records --Lung CA: n/a --PSA PSA 0.74 (2017)- per pt f/w non VA PCP --AAA (smoker/65): 2018 no AAA --Influenza (yrly): will get at [facility] --COVID aug 2020 -> scheduled for booster --PCV13 2016 --PCV23: --HZV/RZV: -2019 x2 --TDAP/TD: --Hep C screen: 2000 negative --HIV screen: --DEXA: --Advanced Directives: Comanagement - prefers to have most aspects of h ealth maintenance, chronic condition(s) and medication management to non-VA PCP. Return to clinic to see me in 12 months, sooner PRN. Virtual (x ), F2F ( ) ( x)fasting labs ordered prior to f/u add vit D, b12, TSH, alb/cr (x)request records from outside providers endocrinology PCP cardio renal ----> please place [facility] referral to Dafne Natarajan Or marilu Russo- for bilateral knee pain Medication Reconciliation: Outpatient: Has the patient been taking medications as docu mented in the EMLR? No: Discrepencies were identified. See below. Essential Medication List for Review used to co mplete this medication reconciliation. INCLUDED IN THIS LIST: Alphabetical list of act ashley outpatient prescriptions dispensed from this [facility] (local) an d dispensed from another [place] or [facility] facility (remote) as well as inpatien t orders (local, pending and active), local clinic medications, locally documented non-VA medications, and local prescriptions that have or been discontinued in the past 90 days. - Discrepancies were identified, addressed, and discussed with the patient/caregiver at this encounter. Discrepancies: chart updated - All changes in medications, including all non -VA/Herbal/OTC medications were entered into CPRS. - If there were any medications the patient diana uld no longer take, they were discontinued. - The patient/caregiver was instructed to updat e this list, discard old lists, and take this list to the next appointme nt, whether with a VA or non-VA provider. HTN Assess for Elevated BP>=140/90: The patient's medication regimen was adjusted t o improve blood pressure control. Comment: increase amlodipine to 10mg daily and f/w cardiology HTN Assess for Elevated BP>=140/90: Patient reported blood pressure 161/78 /justine/ ROMULO CHONG MD PHYSICIAN Signed: 04/21/2021 19:28 Receipt Acknowledged By: 04/22/2021 09:46 /justine/ Peri Mandujano RN Registered Nurse 04/22/2021 15:56 /justine/ CORDELL MCWILLIAMS LPN LICENSED PRACTICAL NURSE 06/03/2021 ADDENDUM STATUS: COMPLETED [place] requested medication information be prov ided to his PCP. IC METOPROLOL SUCC ER 200mg tablets directions take one tablet by mouth every day. new sugar units Humulin N - 25 units am 38 units pm Novolog - 10-12 units am 25-28 units pm /justine/ ROMULO CHONG MD PHYSICIAN Signed: 06/03/2021 00:20 06/03/2021 ADDENDUM STATUS: COMPLETED 05/24/2021 ADDENDUM STATUS: COMPLETED spoke to pt to clarify - he was switched to topr ol 200mg daily . has 90 [address] [facility], in 3 m he would like to ge t toprol through [facility]. /justine/ ROMULO CHONG MD PHYSICIAN Signed: 06/03/2021 00:22 Apr 21, 2021 10:48 AM PREVENTIVE MEDICINE NURSING NOTE: CORDELL MCWILLIAMS LOCAL TITLE: CLINICAL REMINDERS/NURSING STANDARD TITLE: PREVENTIVE MEDICINE NURSING NOTE DATE OF NOTE: APR 21, 2021@10:48 ENTRY DATE: APR 21, 2021@10:48:12 AUTHOR: CORDELL MCWILLIAMS EXP COSIGNER: URGENCY: STATUS: COMPLETED Advance Directive Screen: Patient has an up-to-date Advance Directive doc ument, but it is not on file at this [facility]. Patient has been requested t o forward a copy to his/her clinician. The patient received education about advance di rectives as well as written notification of his/her rights. DM/PVD/ESRD Foot Exam: The [place] DECLINED Diabetic/PVD Foot Exam at this time. Numbness in ball of right foot since surgery, re pair of tear. Has follow up appointment with surgeon later Apr COVID-19 Immunization: Pfizer COVID-19 Vaccine given previously Patient received a prior dose of the Pfizer COV ID-19 Vaccine. Date: July 16, 2020 [place] [facility] received a prior dose of the Pfizer COV ID-19 Vaccine. Date: August 06, 2020 [place] [facility] [place]enza Immunization: Virtual/Telehealth Visit - Patient educated on the need for receiving influenza immunization either at [place] or outside facility. Relationship Health & Safety Screen: Screening is not completed at this time due to: Another adult is present. /justine/ CORDELL MCWILLIAMS LPN LICENSED PRACTICAL NURSE Signed: 04/21/2021 11:01 Apr 21, 2021 10:46 AM TELEHEALTH NOTE: TARAS CHONG [facility] LOCAL TITLE: [place] VIDEO CONNECT PRIMARY CARE LYUBOV STANDARD TITLE: TELEHEALTH NOTE DATE OF NOTE: APR 21, 2021@10:46 ENTRY DATE: APR 21, 2021@10:46:58 AUTHOR: Nisa CHONG EXP COSIGNER: URGENCY: STATUS: COMPLETED [place] [facility] Connect (VVC) Standard Documentation VVC Clinician Resources Only: E911 (Emergency Call Relay Center): [phone] National Veterans Crisis Line - ( [phone]-TALK) press #1. PAMELA Suicide Coordinator [phone], Ext. [phone]; Back-up Ext. [phone] Piano Mover of the Day(AOD), Danny SANTIAGO [phone], Ext. [phone] Introduction: Visit is being conducted by [facility]. identified with 2 identifiers: [X] Full Name [X] Date of [ ] VA ID Card Emergency Plan: [place] confirmed and/or provided the following information in case of emergency or technology failure. PATIENT PHONE - PHONE NUMBER [CELLULAR] - Is patient phone number correct, if not, enter b elow: 's phone number: [phone] [email or web address], [place] [address] [place]'s present location and address for appoi ntment: see above [place]'s emergency contact name and phone numbe r: Jeanine - - [phone] [place] reported that location is private and fe: Yes Informed Consent: [place] informed of the risks and benefits of Te lehealth video care. [place] has the right to refuse video services. If refuses video visit, a [id number] visit will be scheduled. [place] verbalized consent for this video visit: Yes provided consent for any other persons p resent for visit: Yes If yes, who and relationship to patient:cesar Humphrey Secure visit: Visit was locked for security and privacy:Yes /justine/ ROMULO CHONG MD PHYSICIAN Signed: 04/21/2021 19:29
--- OUTSIDE RECORDS SUMMARY | 2022-02-03 00:32 | XMS_ITS | Encounter Summary ---
:1950 Author Organization Department [facility] rs Address [address] [place] [id number] Support Name Relationship Address Phone LORI HOPKINS Unavailable [address] [place] [address] [phone] [place] [address] LORI HOPKINS Unavailable [address] [facility] [place] [address] Insurance Providers: All historical and current Section [...] Number Silva JARRED PREFERRED STAND May 08 [id number] [phone] PROVIDER SHIVA 2010 [id number] [phone] RIAN MILLAN FEDERAL ORGANIZAT SELF ION (PPO) [place] PREFERRED STAND May 08 [id number] [phone] JAMES CE PATIENT FEP PROVIDER SHIVA [phone] RIAN MILLAN ORGANGERMANAT INDIV ION (PPO) IDUAL BCBS OF PREFERRED STAND May 08 [id number] [phone] JAMES CE PATIENT MASS PROVIDER SHIVA [phone] [id number] RIAN MILLAN FEDERAL ORGANIZAT SELF ION (PPO) BCBS OF PREFERRED STAND May 08 [id number] [phone] JAMES CE PATIENT MASS FEP PROVIDER SHIVA [phone] RIAN MILLAN ORGANIZAT SELF ION (PPO) BCBS OF DENTAL STAND May 08, DENTAL [id number] [phone] SANDEEP, PATIENT [place]ASS FEP INSURANCE SHIVA 2010 87 6 RIAN DENTAL [place] OF [place] MEDICARE FEP Dec 06 [id number] SANDEEP PATIENT FEP SECONDARY STAND 2019 [phone] RIAN MILLAN (NO B SHIVA EXC) MEDSE Suzan CAREMARK PRESCRIPT FEP Dec 06, [id number] SANDEEP PATIENT FEP ION ONLY 2014 [phone] RIAN MILLAN [place] PRESCRIPT May 08, [id number] [phone] EDUARDO MATTHEW PATIENT FEP ION 2011 0 87 1 RIAN MILLAN PRESCRIPT CAREM May 08, [id number] [phone] EDUARDO ENCEstella, PATIENT FEP BCBS ION ARK 2011 0 87 1 RIAN FEPRX PLAN CAREMARK PRESCRIPT May 08, [id number] [phone] ENCE PATIENT FEPRX PLAN ION 2011 0 [phone] RIAN MILLAN-F PRESCRIPT FEPRX May 08, [id number] [phone] LA JENENCE PATIENT EP BCBS ION /PT D 2010 0 87 1 RIAN MILLAN [facility] May 18, [id number] [phone] JAMES CE, PATIENT RE JONATAN AL 2003 32 7 RIAN CE ORGANIZ EXPRESS PRESCRIPT CONNE May 18, [id number] [phone] JAMES CE, PATIENT SCRIPTS ION CTICA 2003 [id number] RIAN ([id number]) RE MEDICARE MEDICARE PART Oct 06, PART B [id number] JAMES CE, PATIENT (WNR) (M) B 2012 UP33 2 [place] MEDICARE MEDICARE PART Oct 06, PART A [id number] [phone] JAMES CE, PATIENT (WNR) (M) A 2013 UP33 00 [place] MEDICARE MEDICARE PART Oct 06, PART B [id number] [phone] JAMES CE, PATIENT (WNR) (M) B 2013 UP33 00 [place] MEDICARE MEDICARE PART Oct 06, PART A [id number] Lisa HOPKINS (WNR) (M) A 2013 UP33 [phone] [place] MEDICARE MEDICARE PART Oct 06, PART A [id number] [phone] JAMES CE, PATIENT (WNR) (M) A 2013 UP33 7 [place] MEDICARE MEDICARE PART Oct 06, PART B [id number] [phone] JAMES CE, PATIENT (WNR) (M) B 2012 UP33 7 RIAN MEDICARE MEDICARE PART Oct 06, PART B [id number] Lisa HOPKINSIENT (WNR) (M) B 2012 UP33 [phone] RIAN MEDICARE MEDICARE PART Oct 06, PART A [id number] [phone] JAMES CE, PATIENT (WNR) (M) A 2012 UP33 2 RIAN MEDICARE MEDICARE PART Dec 06, PART D [id number] SANDEEPLisa ATIENT PART D (M) D 2018 UP33 [phone] RIAN (WNR) MEDICARE MEDICARE PART Oct 06, PART D [id number] [phone] JAMES CE, PATIENT PART D (M) D 2012 UP33 7 RIAN (WNR) MEDICARE PRESCRIPT PART Oct 06, PART D [id number] [phone] LAWRE NCE, PATIENT PART D ION D 2012 [id number] RIAN (WNR) MEDICARE PRESCRIPT PART Oct 06, PART D [id number] [phone] LAWRE NCE, PATIENT PART D ION D 2012 UP33 0 RIAN (WNR) Selected Encounter This section includes the information on record at [place] for the Encounter. Date/Time Encounter Type Encounter Reason Provider Source Description Apr 15, 2021 COLLJ & INTERPJ SLEEP STUDY ICD-10-CM G47.33 DEBORAH HANCOCK IC 07:54 AM DATA EA 30 D Obstructive sleep apnea (adult) (pediatric) with Provider Comments: Obstructive Sleep Apnea (Adult) (Pediatric) IHE Encounter Template Text not used by [place] Assessments - Encounter Diagnoses This section includes the primary and secondary diagnoses documented for the Encounter. Date/Time Primary/Secondary Diagnosis Name Provider Source Diagnosis Apr 15, 2021 PRIMARY Obstructive sleep [place] [facility] 07:55 AM apnea (adult) [place] [facility] (pediatric) Plan of Treatment: Future Appointments (+ 6 months) and Future Tests (+/- 45 days) The Plan of Treatment section includes future care activities for the patient from all [place] treatmentfacilities. This section includes future appointments and future orders which are active, pending orscheduled.Future Appointments This section includes appointments that were scheduled to occur 6 months from the date of the Encounter, up to a maximum of 20 appointments. The data comes from all [place] treatment facilities. Appointment Date/Time Appointment Type Appointment Facili ty Name Apr 21, 2021 11:00 AM AM[facility]ULATORY [facility] Apr 22, 2021 01:00 PM AMBULATORY [facility] May 03, 2021 01:45 PM [facility] [place] [facility] May 05, 2021 03:00 PM [facility] [place] [facility] Jun 01, 2021 02:00 PM [facility] Jun 02, 2021 12:30 PM AMBULATORY [facility] Jun 04, 2021 12:30 PM AMBULATORY [facility] Jun 08, 2021 02:00 PM [facility] [place] [facility] Jun 16, 2021 02:00 PM [facility] Jun 18, 2021 01:00 PM [facility] [place] [facility] Jun 22, 2021 02:00 PM [facility] Jun 23, 2021 01:00 PM [facility] [place] [facility] Jul 07, 2021 11:00 AM AMBULATORY [facility] Jul 13, 2021 02:00 PM [facility] Jul 20, 2021 02:30 PM [facility] Aug 05, 2021 02:00 PM [facility] Aug 16, 2021 02:00 PM [facility] Aug 26, 2021 02:00 PM [facility] Sep 03, 2021 11:00 AM [facility] Lab Results: +/- 30 days of the encounter This section includes the Chemistry and Hematology Lab Results on record with [place] for the patient. Radiology Reports and Pathology Reports are provided separately, in subsequent sections.Lab Results This section contains the Chemistry/Hematology Results that were resulted 30 days before or 30 daysafter the date of the Encounter. Date/Time Source Result Type Result - Unit Interpretation Reference Range Comment Apr 20, 2021 [place] VITAMIN D (25-[place]) Specimen Type : SERUM 11:34 AM Comment: GLUCOS E Verified by repeat analysis. CALLED DR NG 04/20/21@3837 [facility] Read-back was completed. Ordering Provid er: ROMULO CHONG Report Released Date/Time: Apr 07, 2021 01:54 PM Reporting Lab: [facility] [address] [address] Performing Lab: [address] [address] VITAMIN D (25-OH) <13 L 20-50 Apr 20, 2021 [place] LIPID PANEL FASTING Specimen Ty pe: SERUM 11:34 AM Comment: GLUCOS E Verified by repeat analysis. CALLED DR NG 04/20/21@1432 [facility] Read-back was completed. Ordering Provid er: ROMULO CHONG Report Released Date/Time: Apr 07, 2021 01:54 PM Reporting Lab: [address] [address] Performing Lab: [address] [address] CHOLESTEROL 181 0-199 TRIGLYCERIDE 193 H 0-150 LDL calculated 95 0-129 CHOL/HDL 3.9 HDL CHOLESTEROL 47 40-60 Apr 20, 2021 [place] BASIC METABOLIC Specimen Type: SERUM 11:34 AM PANEL (fasting) Comment: GLUCOS E Verified by repeat analysis. CALLED DR NG 04/20/21@1432 [facility] Read-back was completed. Ordering Provid er: ROMULO CHONG Report Released Date/Time: Apr 07, 2021 01:54 PM Reporting Lab: [address] [address] Performing Lab: [address] [address] [place] NITROGEN 25 7-25 GLUCOSE 48 LL 65-100 SODIUM 141 135-145 POTASSIUM 4.3 3.5-5.0 CHLORIDE 105 100-110 CO2 29 20-30 CREATININE, Serum 1.82 H 0.50-1.40 eGFR (IDMS) 37 L >60 Apr 20, 2021 [place] HEMOGLOBIN A1C PANEL Specimen T ype: BLOOD 11:34 AM Comment: Testin g performed by [facility] certified [employer] Enzym[employer] with CV <2%. The [...] Apr 07, 2021 01:54 PM Reporting Lab: [facility] [address] [address] Performing Lab: [facility] [address] [address] HEMOGLOBIN A1C 9.2 H 4.0-5.6 Apr 20, 2021 11:34 [place] LIVER FUNCTION Specimen Typ e: SERUM AM Comment: GLUCOS E Verified by repeat analysis. CALLED DR NG 04/20/21@1432 [facility] Read-back was completed. Ordering Provid er: ROMULO CHONG Report Released Date/Time: Apr 07, 2021 01:54 PM Reporting Lab: [facility] [address] [address] Performing Lab: [facility] [address] [address] PROTEIN,TOTAL 6.7 6.0-8.3 ALBUMIN 3.3 L 3.5-5.0 ALKALINE PHOSPHATASE 60 40-150 AST 14 5-34 ALT 15 0-55 BILIRUBIN, TOTAL 0.4 0.2-1.2 Apr 20, 2021 11:34 AM [place] TSH Specimen Type: SERUM Comment: GLUCOS E Verified by repeat analysis. CALLED DR NG 04/20/21@1432 [facility] Read-back was completed. Ordering Provid er: ROMULO CHONG Report Released Date/Time: Apr 07, 2021 01:54 PM Reporting Lab: [facility] [address] [address] Performing Lab: [facility] [address] [address] TSH 3.57 0.35-5.00 Apr 20, 2021 [place] MICROALBUMIN Specimen Type: URINE 11:34 AM CREATININE RATIO PANEL No commen t entered. Ordering Provid er: ROMULO CHONG Report Released Date/Time: Apr 07, 2021 01:54 PM Reporting Lab: [address] [address] Performing Lab: [address] [address] MICROALBUMIN/CREATININE RATIO canc 0-29.9 MICROALBUMIN,QUANTITATIVE > 300.0 RR U [place] CREATININE URINE 173.58 Apr 20, 2021 [place] CBC AND DIFF Specimen Type: BLOOD 11:34 AM (AUTO) No comment enter ed. Ordering Provid er: ROMULO CHONG Report Released Date/Time: Apr 07, 2021 01:54 PM Reporting Lab: [address] [address] Performing Lab: [address] [address] WBC 10.37 4.50-11.00 RBC 4.83 4.23-5.66 HGB 14.2 12.8-17 HCT 44.0 39.2-50.4 MCV 91.1 82-99 MCHC 32.3 30.8-35.1 PLT 286 140-360 RDW-CV 13.0 12.0-16.0 Wagoner, Abs 1.04 0.30-1.10 MCH 29.4 26.2-32.6 Neut % 42.3 Lymph % 42.3 Wagoner % 10.0 Eos % 4.5 Baso % 0.7 Neut, Abs 4.38 2.20-7.60 Lymph, Abs 4.39 H 1.00-3.20 Eos, Abs 0.47 H 0.03-0.44 Baso, Abs 0.07 0.01-0.13 Immature Gran % 0.2 Immature Gran, Abs 0.02 0.00-0.06 Encounter Notes: All associated encounter notes This section contains the clinical notes associated to the Encounter. Date/Time Encounter Note(s) Provider Source Apr 15, 2021 07:54 AM SLEEP MEDICINE NOTE: MITCHELL HANCOCK CN [facility] LOCAL TITLE: SLEEP TEST SFT DATA UPLOAD [facility] STANDARD TITLE: SLEEP MEDICINE NOTE DATE OF NOTE: APR 15, 2021@07:54 ENTRY DATE: APR 15, 2021@07:54:16 AUTHOR: MITCHELL HANCOCK EXP COSIGNER: URGENCY: STATUS: COMPLETED Home sleep study recorder received, downloaded. Data quality is ACCEPTABLE. Home Sleep Apnea Test (HSAT) performed on Mar Post home sleep questionnaires were RETURNED. Patient had disease specific education at this e ncounter. When complete, results of the sleep study will b e available under [facility] . Study scored and to be reviewed for full interpr etation. /justine/ CECILIA MOREL TRANSPORT CONDUCTOR Signed: 04/15/2021 07:55
--- OUTSIDE RECORDS SUMMARY | 2022-02-03 00:32 | XMS_ITS | Encounter Summary ---
:1950 Author Organization Department [facility] Address [address] [place] [id number] Support Name Relationship Address Phone LORI HOPKINS Unavailable [address] [place] [address] [place] [address] LORI HOPKINS Unavailable [address] [place] [address] [place] [address] Insurance Providers: All historical and current Section [...] Number Silva JARRED PREFERRED STAND May 08 [id number] [phone] PROVIDER SHIVA [phone] MATI MILLAN FEDERAL ORGANIZAT SELF ION (PPO) [place]BS [place] PREFERRED STAND May 08 [id number] [phone] JAMES CE PATIENT FEP PROVIDER SHIVA [phone] MATI MILLAN ORGANGERMANAT INDIV ION (PPO) IDUAL BCBS OF PREFERRED STAND May 08 [id number] [phone] JAMES CE PATIENT MASS PROVIDER SHIVA [phone] [id number] MATI MILLAN FEDERAL ORGANIZAT SELF ION (PPO) BCBS OF PREFERRED STAND May 08 [id number] [phone] JAMES CE PATIENT MASS FEP PROVIDER SHIVA 2010 87 6 MATI MILLAN ORGANIZAT SELF ION (PPO) BCBS OF DENTAL STAND May 08, DENTAL [id number] [phone] SANDEEP, PATIENT MASS FEP INSURANCE SHIVA [phone] 6 MATI DENTAL [place] OF [place] MEDICARE FEP Dec 06 [id number] SANDEEP PATIENT FEP SECONDARY STAND 2019 [phone] MATI MILLAN (NO B SHIVA EXC) MEDSE Suzan CAREMARK PRESCRIPT FEP Dec 06, [id number] SANDEEP PATIENT FEP ION ONLY 2014 [phone] MATI MILLAN PRESCRIPT May 08, [id number] [phone] EDUARDO MATTHEW PATIENT FEP ION 2011 0 87 1 MATI MILLAN PRESCRIPT CAREM May 08, [id number] [phone] EDUARDO MATTHEW, PATIENT FEP BCBS ION ARK 2011 0 87 1 MATI FEPRX PLAN [place] PRESCRIPT May 08, [id number] [phone] LAWR ENCE PATIENT FEPRX PLAN ION 2011 0 [phone] MATI MILLAN-F PRESCRIPT FEPRX May 08, [id number] [phone] LA WRENCE PATIENT EP BCBS ION /PT D 2010 0 87 1 MATI MILLAN [facility] May 18, [id number] [phone] JAMES CE, PATIENT RE JONATAN AL 2003 32 7 MATI CE ORGANIZ EXPRESS PRESCRIPT CONNE May 18, [id number] [phone] JAMES CE, PATIENT SCRIPTS ION CTICA 2003 [id number] MATI ([id number]) RE MEDICARE MEDICARE PART Oct 06, PART A [id number] [id number] JAMES CE, PATIENT (WNR) (M) A 2013 UP33 00 JOSEPH MEDICARE MEDICARE PART Oct 06, PART B [id number] [phone] JAMES CE, PATIENT (WNR) (M) B 2012 UP33 00 [place]PH MEDICARE MEDICARE PART Oct 06, PART A [id number] Lisa HOPKINS (WNR) (M) A 2012 UP33 [phone] MATI MEDICARE MEDICARE PART Oct 06, PART A [id number] [phone] JAMES CE, PATIENT (WNR) (M) A 2013 UP33 2 JOSEPH MEDICARE MEDICARE PART Oct 06, PART B [id number] Lisa HOPKINS (WNR) (M) B 2012 UP33 [phone] MATI MEDICARE MEDICARE PART Oct 06, PART B [id number] [phone] JAMES CE, PATIENT (WNR) (M) B 2012 UP33 7 MATI MEDICARE MEDICARE PART Oct 06, PART A [id number] [phone] JAMES CE, PATIENT (WNR) (M) A 2012 UP33 7 MATI MEDICARE MEDICARE PART Oct 06, PART B [id number] [phone] JAMES CE, PATIENT (WNR) (M) B 2012 UP33 2 MATI MEDICARE MEDICARE PART Dec 06, PART D [id number] Lisa HOPKINS ATIENT PART D (M) D 2018 UP33 [phone] MATI (WNR) MEDICARE PRESCRIPT PART Oct 06, PART D [id number] [phone] LAWRE NCE, PATIENT PART D ION D 2012 [id number] MATI (WNR) MEDICARE PRESCRIPT PART Oct 06, PART D [id number] [phone] LAWRE NCE, PATIENT PART D ION D 2012 UP33 0 MATI (WNR) MEDICARE MEDICARE PART Oct 06, PART D [id number] [phone] JAMES CE, PATIENT PART D (M) D 2012 UP33 7 MATI (WNR) Selected Encounter This section includes the information on record at [place] for the Encounter. Date/Time Encounter Type Encounter Reason Provider Source Description Apr 09, 2021 Outpatient GENERAL INTERNAL ICD-10-CM Z02.89 JORDEN DE 01:00 PM Encounter MEDICINE Encounter for other E T administrative examinations with Provider Comments: Ivqi-yo-Mdac Examination (C&P/SHA) IHE Encounter Template Text not used by [place] Assessments - Encounter Diagnoses This section includes the primary and secondary diagnoses documented for the Encounter. Date/Time Primary/Secondary Diagnosis Name Provider Source Diagnosis Apr 15, 2021 PRIMARY Encounter for other SHAILESH DE MT CNTR L WSTRN 02:40 PM administrative E [place] [facility] examinations Plan of Treatment: Future Appointments (+ 6 months) and Future Tests (+/- 45 days) The Plan of Treatment section includes future care activities for the patient from all [place] treatmentfacilities. This section includes future appointments and future orders which are active, pending orscheduled.Future Appointments This section includes appointments that were scheduled to occur 6 months from the date of the Encounter, up to a maximum of 20 appointments. The data comes from all [place] treatment facilities. Appointment Date/Time Appointment Type Appointment Facili ty Name Apr 13, 2021 02:00 PM AMBULATORY [facility] [place] [facility] Apr 13, 2021 02:30 PM AMBULATORY [facility] Apr 21, 2021 11:[address] [facility] Apr 22, 2021 01:00 PM AMBULATORY - RE[facility] May 03, 2021 01:45 PM AMBULATORY [facility] [place] [facility] May 05, 2021 03:00 PM [facility] [place] [facility] Jun 01, 2021 02:00 PM AMBULATORY [facility] Jun 02, 2021 12:30 PM AMBULATORY [facility] Jun 04, 2021 12:30 PM AMBULATORY [facility] Jun 08, 2021 02:00 PM [facility] [place] [facility] Jun 16, 2021 02:00 PM [facility] Jun 18, 2021 01:00 PM AMBULATORY [facility] [place] [facility] Jun 22, 2021 02:00 PM AMBULATORY [facility] Jun 23, 2021 01:00 PM [facility] [place] [facility] Jul 07, 2021 11:[address] [facility] Jul 13, 2021 02:00 PM [facility] Jul 20, 2021 02:30 PM [facility] Aug 05, 2021 02:00 PM [facility] Aug 16, 2021 02:00 PM [facility] Aug 26, 2021 02:00 PM [facility] Lab Results: +/- 30 days of the encounter This section includes the Chemistry and Hematology Lab Results on record with MT for the patient. Radiology Reports and Pathology Reports are provided separately, in subsequent sections.Lab Results This section contains the Chemistry/Hematology Results that were resulted 30 days before or 30 daysafter the date of the Encounter. Date/Time Source Result Type Result - Unit Interpretation Reference Range Comment Apr 20, 2021 [place] VITAMIN D (25-OH) Specimen Type : SERUM 11:34 AM Comment: GLUCOS E Verified by repeat analysis. CALLED DR NG 04/20/21@5742 [facility] Read-back was completed. Ordering Provid er: ROMULO CHONG Report Released Date/Time: Apr 07, 2021 01:54 PM Reporting Lab: [facility] [address] [facility] [address] Performing Lab: [address] [address] VITAMIN D (25-OH) <13 L 20-50 Apr 20, 2021 [place] BASIC METABOLIC Specimen Type: SERUM 11:34 AM PANEL (fasting) Comment: GLUCOS E Verified by repeat analysis. CALLED DR NG 04/20/21@1432 [facility] Read-back was completed. Ordering Provid er: ROMULO CHONG Report Released Date/Time: Apr 07, 2021 01:54 PM Reporting Lab: [address] [address] Performing Lab: [address] [address] UREA NITROGEN 25 7-25 GLUCOSE 48 LL 65-100 SODIUM 141 135-145 POTASSIUM 4.3 3.5-5.0 CHLORIDE 105 100-110 CO2 29 20-30 CREATININE, Serum 1.82 H 0.50-1.40 eGFR (IDMS) 37 L >60 Apr 20, 2021 [place] LIPID PANEL FASTING Specimen Ty pe: SERUM 11:34 AM Comment: GLUCOS E Verified by repeat analysis. CALLED DR NG 04/20/21@1432 [facility] Read-back was completed. Ordering Provid er: ROMULO CHONG Report Released Date/Time: Apr 07, 2021 01:54 PM Reporting Lab: [address] [address] Performing Lab: [address] [address] CHOLESTEROL 181 0-199 TRIGLYCERIDE 193 H 0-150 LDL calculated 95 0-129 CHOL/HDL 3.9 HDL CHOLESTEROL 47 40-60 Apr 20, 2021 [place] HEMOGLOBIN A1C PANEL Specimen T ype: BLOOD 11:34 AM Comment: Testin g performed by [facility] certified [facility]azariegos Enzymatic with CV <2%. The [...] 07, 2021 01:54 PM Reporting Lab: [address] [address] Performing Lab: [address] [address] HEMOGLOBIN A1C 9.2 H 4.0-5.6 Apr 20, 2021 11:34 [place] LIVER FUNCTION Specimen Typ e: SERUM AM Comment: GLUCOS E Verified by repeat analysis. CALLED DR NG 04/20/21@1432 [facility] Read-back was completed. Ordering Provid er: ROMULO CHONG Report Released Date/Time: Apr 07, 2021 01:54 PM Reporting Lab: [facility] [address] [facility] [address] Performing Lab: [address] [address] PROTEIN,TOTAL 6.7 6.0-8.3 ALBUMIN 3.3 L 3.5-5.0 ALKALINE PHOSPHATASE 60 40-150 AST 14 5-34 ALT 15 0-55 BILIRUBIN, TOTAL 0.4 0.2-1.2 Apr 20, 2021 11:34 AM [place] TSH Specimen Type: SERUM Comment: GLUCOS E Verified by repeat analysis. CALLED DR NG 04/20/21@1432 [facility] Read-back was completed. Ordering Provid er: ROMULO CHONG Report Released Date/Time: Apr 07, 2021 01:54 PM Reporting Lab: [facility] [address] [facility] [address] Performing Lab: [address] [address] TSH 3.57 0.35-5.00 Apr 20, 2021 [place] MICROALBUMIN Specimen Type: URINE 11:34 AM CREATININE RATIO PANEL No commen t entered. Ordering Provid er: ROMULO CHONG Report Released Date/Time: Apr 07, 2021 01:54 PM Reporting Lab: [address] [address] Performing Lab: [address] [address] MICROALBUMIN/CREATININE RATIO canc 0-29.9 MICROALBUMIN,QUANTITATIVE > 300.0 RR U NAVAIL CREATININE URINE 173.58 Apr 20, 2021 [place] CBC AND DIFF Specimen Type: BLOOD 11:34 AM (AUTO) No comment enter ed. Ordering Provid er: ROMULO CHONG Report Released Date/Time: Apr 07, 2021 01:54 PM Reporting Lab: [address] [address] Performing Lab: [address] [address] WBC 10.37 4.50-11.00 RBC 4.83 4.23-5.66 HGB 14.2 12.8-17 HCT 44.0 39.2-50.4 MCV 91.1 82-99 MCHC 32.3 30.8-35.1 PLT 286 140-360 RDW-CV 13.0 12.0-16.0 Lanier, Abs 1.04 0.30-1.10 MCH 29.4 26.2-32.6 Neut % 42.3 Lymph % 42.3 Lanier % 10.0 Eos % 4.5 Baso % 0.7 Neut, Abs 4.38 2.20-7.60 Lymph, Abs 4.39 H 1.00-3.20 Eos, Abs 0.47 H 0.03-0.44 Baso, Abs 0.07 0.01-0.13 Immature Gran % 0.2 Immature Gran, Abs 0.02 0.00-0.06 Encounter Notes: All associated encounter notes This section contains the clinical notes associated to the Encounter. Date/Time Encounter Note(s) Provider Source Apr 09, 2021 01:00 C & P EXAMINATION NOTE: LILIANE DE [place] C NTRL WSTRN PM LOCAL TITLE: COMPENSATION AND PENSION EXAM [place] [facility] STANDARD TITLE: C & P EXAMINATION NOTE DATE OF NOTE: APR 09, 2021@13:00 ENTRY DATE: APR 15, 2021@14:38:44 AUTHOR: LILIANE DE EXP COSIGNER: URGENCY: STATUS: COMPLETED Shoulder and Arm Conditions Disability Benefits Questionnaire Name of Claimant/[place]: Sandeep Mati Millan Is this questionnaire being completed in conjun ction with [place] [id number], C&P examination request? [X] Yes [ ] No How was the examination completed? (check all t hat apply) [X] In-person examination [ ] Records reviewed [ ] Examination via approved video telehealth [ ] Other, please specify in comments box Comments: Acceptable Clinical Evidence (HAL) Indicate the method used to obtain medical info rmation to complete this document: [ ] Review of available records (without in-per son or video telehealth examination) using the Acceptable Clinical Evid ence (HAL) process because the existing medical evidence provided sufficie nt information on which to prepare the questionnaire and such an examinati on will likely provide no additional relevant evidence. [ ] Review of available records in conjunction with an interview with the [place] (without in-person or telehealth examin ation) using the HAL process because the existing medical evidence supplemen diane with an interview provided sufficient information on which to pre pare the questionnaire and such an examination would likely provide no add itional relevant evidence. Evidence Review Evidence reviewed (check all that apply): [X] [place] electronic health record [X] Other, please identify other evidence revie wed. Evidence Comments: [place], CPRS, VBMS Dominant Hand: [X] Right [ ] Left [ ] Ambidextrous 1. Diagnosis 1A. List the claimed conditions that pertain to this questionnaire: left shoulder 1B. Select diagnoses associated with th e claimed condition(s) (check all that apply): [X] Other (specify) Other diagnosis #1 SC for left shoulder impinge ment syndrome with tendonitis and arthritis, s/p fracture, ORIF, a nd bone graft of right hip Side affected: Left ICD code: M75 Date of diagnosis: Left SC If there are additional diagnoses that pertain to shoulder and/or arm conditions, list using above format: No response provided 2. Medical History 2A. Describe the history (i ncluding onset and course) of the 's shoulder and/or arm condition (brief summary): served 02[place]06[place]-03/06/[address] 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 Active duty service dates: Branch: [employer] EOD: 02/06/1968 RAD: 03/06/1970 Service Connection/Rated Disabilities: SC Percent: 40% Rated Disabilities: 2ND DEGREE BELCHER (0%-SC) SCARS (0%-SC) LIMITED MOTION OF ARM (20%-SC) LIMITED FLEXION OF KNEE (10%-SC) LIMITED FLEXION OF KNEE (10%-SC) TINNITUS (10%-SC) 70 YO male service connected for left shoulder impingement syndrome with tendonitis and arthritis, s/p fracture, ORIF, a nd bone graft of right hip. He reported left shoulder surgery for torn rota tor cuff. He reported left shoulder pain, constant, occurs w/overhead move ments, reaching and lifting > 10 pounds, tx w/bengay PRN. 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 He underwent left rotator cuff repair surgery on A ugust [address] Derick Russo. Last C&P exam dated 02/06/2017 documented: He had a left humerus bone cyst in 1968 and a f racture. He had surgery with removal of cyst and packing with iliac bon e graft. He had progressive problems with the shoulder with MRI and orthope dic evaluation showing degenerative changes, impingement, and rotator cuff tendinitis. 2B. Does the [place] report flare-ups of the sh oulder and/or arm? [ ] Yes [X] No If yes, document the 's description of t he flare-ups he or she experiences, including the frequency, duration, characteristics, precipitating and alleviating factors, severity and/ or extent of functional impairment he or she experiences dur ing a flare-up of symptoms: No response provided 2C. Does the [place] report having any functional loss or functional impairment of the joint or extremity being evaluated on th is questionnaire, including but not limited to after repeated use over time ? [ ] Yes [X] No If yes, document the 's description of f unctional loss or functional impairment in his or her own words: No response provided 3. Range Of Motion (ROM) And Functional Limitat ion --- 3A. Initial ROM measurements Right shoulder [X] All Normal [ ] Abnormal or outside of normal range [ ] Unable to test [ ] Not indicated Can testing be performed? [X] Yes [ ] No If no, provide explanation below in the comment s box. No response provided If this is the unclaimed joint, is it: [ ] Damaged [X] Undamaged If undamaged, range of motion testing must be c onducted. Active Range of Motion (ROM) - Perform active r rosalba of motion and provide the ROM values. Flexion endpoint (180 degrees): 180 degrees Abduction endpoint (180 degrees): 180 degrees Internal rotation endpoint (90 degrees): 90 deg kev External rotation endpoint (90 degrees): 90 deg kev Passive Range of Motion - Perform passive ROM a nd provide the ROM values. Flexion endpoint (180 degrees): 180 degrees Abduction endpoint (180 degrees): 180 degrees Internal rotation endpoint (90 degrees): 90 deg kev External rotation endpoint (90 degrees): 90 deg kev Left shoulder [ ] All Normal [X] Abnormal or outside of normal range [ ] Unable to test [ ] Not indicated If abnormal, does the range of motion itself co ntribute to functional loss? [ ] Yes [X] No Can testing be performed? [X] Yes [ ] No If no, provide explanation below in the comment s box. No response provided If this is the unclaimed joint, is it: [ ] Damaged [X] Undamaged If undamaged, range of motion testing must be c onducted. Active Range of Motion (ROM) - Perform active r rosalba of motion and provide the ROM values. Flexion endpoint (180 degrees): 100 degrees Abduction endpoint (180 degrees): 80 degrees Internal rotation endpoint (90 degrees): 80 deg kev External rotation endpoint (90 degrees): 80 deg kev Passive Range of Motion - Perform passive ROM a nd provide the ROM values. Flexion endpoint (180 degrees): 100 degrees Abduction endpoint (180 degrees): 80 degrees Internal rotation endpoint (90 degrees): 80 deg kev External rotation endpoint (90 degrees): 80 deg kev 3B. Observed repetitive use ROM: No response pr ovided 3C. Repeated use over time: No response provide d 3D. Flare-ups 3E. Additional factors contributing to disabili ty: No response provided 4. Muscle Atrophy No response provided 5. Ankylosis No response provided 6. Rotator Cuff Conditions No response provided 7. Shoulder Instability, Dislocation or Labral Pathology --------- No response provided 8. Clavicle, Scapula, Acromioclavicular (Ac) Joint and Sternoclavicular Joint Conditions No response provided 9. Conditions Or Impairments of the Humerus No response provided 10. Surgical Procedures No response provided 11. Other Pertinent Physical Findings, Complica tions, Conditions, Signs, Symptoms, and Scars 11A. Does the [place] have any other pertinent physical findings, complications, signs, or symptoms related to an y conditions listed in the diagnosis section above? [ ] Yes [X] No If yes, describe (brief summary): No response provided 11B. Does the [place] have any scars or other d isfigurement (of the skin) related to any conditions or to the treatment o f any conditions listed in the diagnosis section? [X] Yes [ ] No If yes, also complete the appropriate dermatolo gical questionnaire. 11C. Comments, if any: No response provided 12. Assistive Devices 12A. Does the [place] use any assistive devices ? [ ] Yes [X] No 12B. If the [place] uses an y assistive devices, specify the condition, indicate the side, and identify the assistive device use d for each condition: No response provided 13. Remaining Effective Function Of The Extremi ties ----- 13A. Due to the [place]'s shoulder or arm condi tion(s), is there functional impairment of an extremity such that no effective functions remain other than that which would be equally well-served by an a mputation with prosthesis (functions of the upper extremity include grasp ing, manipulation, etc.)? [ ] Yes, functioning is so diminished that ampu tation with prosthesis would equally serve the [place]. [X] No 14. Diagnostic Testing 14A. Have imaging studies b een performed in conjunction with this examination? [ ] Yes [X] No 14D. Are there any other significant diagnostic test findings or results related to the claimed condition(s) and/or diag nosis(es), that were reviewed in conjunction with this examination? [ ] Yes [X] No 14E. If any test results are other than normal, indicate relationship of abnormal findings to diagnosed condition(s): No response provided 15. Functional Impact 15A.Regardless of the Veter an's current employment status, do the condition(s) listed in the Diagnosis Section impact his or her ability to perform any type of occupational task (such as standing, walking , lifting, sitting, etc.)? [X] Yes [ ] No If yes, describe the functional impact of each condition, providing one or more examples: has difficulty with overhead movements, reaching and lifting > 10 pounds. 16. Remarks 16A. Remarks (if any - please identify the sect ion to which the remark pertains when appropriate): There is no change for [place] disability, left shou lder impingement syndrome with tendonitis and arthritis, s/p fracture, OR IF, and bone graft Shoulder PE (greyed out areas) 3A. ROM, abnormal, left shoulder as above Evidence of pain [ X ]Yes, left shoulder, all R OM [ ]No Objective evidence of crepitus [ ]Yes [ X ]No Objective evidence of localized tenderness on p alpation [ X ]Yes, left shoulder [ ]No 3B. Observed repetitive use [ X ]Yes [ ]No 3C. Repeated use over time [ X ]Yes [ ]No 3D. Flare ups [ ]Yes [ X ]No 3E. Additional factors contributing to disabili ty [ ]Yes [ X ]No 4. Muscle atrophy [ ]Yes [ X ]No 5. Ankylosis [ ]Yes [ X ]No 6. Rotator Cuff Conditions [ X ]Yes, left shoul gonzales [ ]No Mello impairment [ X ]Yes, left shoulder [ ]N o Empty can test [ X ]Yes, left shoulder [ ]No External rotation/infraspinatus strength test [ X ]Yes, left shoulder [ ]No Lift off subcapularis test [ X ]Yes, left shoul gonzales [ ]No 7. Shoulder instability, dislocation or labral pathology [ ]Yes [ X ]No 8. Clavicle, scapula, AC joint and sternonoclav icular joint conditions [ ]Yes [ X ]No 9. Impairment of humerus [ ]Yes [ X ]No 10. Surgical procedure and date, as HPI [ X ]Spike s [ ]No 11. Scars, refer to Scar DBQ [ X ]Yes [ ]No +++++++++++++++++++++++++++++++++++++++++++++++ +++++++++++++++++++++++++ Additional exam request information: For any joint condition, examiners should test the contralateral joint, unless medically contraindicated, and the exami ner should address pain on both passive and active motion, and on both isabella ghtbearing and non- weightbearing. In addition to the questions on the DBQ, please respond to the following questions: 1. Is there evidence of pain on passive range o f motion testing? [ ]Yes [ X ]No [ ] Cannot be performed or is no t medically appropriate 2. Is there evidence of pain when the joint is used in non-weight bearing? [ ]Yes [ X ]No [ ] Cannot be performed or is no t medically appropriate 3. If yes, is the opposing joint undamaged (i.e . no abnormalities)? [ ]Yes [ X ]No +++++++++++++++++++++++++++++++++++++++++++++++ +++++++++++++++++++++ Sharp vs Shulkin After examination of the , listening to their complete history and current subjective complaints, combined with a review of the available records, I have no basis to offer additional lo sses of function or motion when it comes to repetitive use or during a fla re-up. CLAIM TYPE: INCREASE ONLY SPECIAL CONSIDERATIONS: [facility] INSUFFICIENT EXAM: NO ELECTRONIC CLAIMS FOLDER AVAILABLE. CLAIMS FILE BEING SENT FOR REVIEW BY THE EXAMIN ERAbraham MATI HOPKINS JR [phone] The [place] has filed a fully developed claim. Please expedite. Date of claim: 03/01/2021 Days pendin [place] has a power of consumer attorney. Please send a courtesy copy of the exam notice letter to [phone] - DISABLED [employer] Attention C&P clinical staff - This exam reques t was scheduled at your location based on the claimant's residing [facility] c ode and ERRA instructions. These remarks were generated using version 4.58 of the Exam Request Builder (ERB_v_4.58). The will need to report for the followi ng exam(s) unless the HAL process is utilized. Clinician: If using the AC E process to complete the DBQ, please explain the basis for the decision not to examine the [place], and identify the specific materials reviewed to complete the DBQ. Also if the exam is completed using HAL, please review the [place]'s claims folder and indicate so in the exam report. DBQ MUSC Knee and lower leg DBQ MUSC Shoulder and arm _ The following contentions need to be examined: Left knee right knee strain left shoulder impingement syndrome with tendoni tis and arthritis, s/p fracture, ORIF, and bone graft Tore Rotor Cuff left shoulder Active duty service dates: Branch: [employer] EOD: 02/06/1968 RAD: 03/06/1970 DBQ [facility] Knee and lower leg: The is service connected for left knee degenerative arthritis with limitation of motion which is currently evaluat ed at 10%. Please evaluate for the current level of severity of the Vetera n's service connected disability. The is service connected for lateral me niscus tear, of the left knee, with early degenerative changes (previous ly DC 5257) which is currently evaluated at 10%. Please evaluate for the current level of severity of the [place]'s service connected dis ability. The [place] is service connected for right knee strain which is currently evaluated at 10%. Please evaluate for the curre nt level of severity of the 's service connected disability. If the diagnosis rendered is different from the disability for which the Vet kenneth is service connected, please indicate whether the [place]'s current d iagnosis is a progression of the service connected disability or the origina l diagnosis was in error. If the diagnosis was in error, please provide a ra tionale supported by the clinical evidence of record that refutes the pr evious exam(s) which diagnosed the condition. 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 Please evaluate for the current level of severity of the [place]'s service connected dis ability. The is claiming service connection for Tore Rotor Cuff left shoulder. Please examine the [place] for a mica miner lakshmi disability related to his or her claimed condition and indicate the curre nt level of severity. POTENTIALLY RELEVANT EVIDENCE: NOTE: Your (examiner) review of the record is N OT restricted to the evidence listed below. This list is provided in an effort to assist the examiner in locating potentially relevant evide nce. Tab AA (STRs in VBMS): Left Shoulder p44 dated 12/15/2016 Tab AB (Private treatment record in [facility]): Left Rotator Cuff dated 03/04/2021 Please direct any questions regarding this requ est to: Priscila Barboza Email: Knee and Lower Leg Disability Benefits Questionnaire Name of Claimant/[place]: SandeepMati Jr Is this questionnaire being completed in conjun ction with a [facility] [id number], C&P Examination Request? [X] Yes [ ] No How was the examination completed? (check all t hat apply) [X] In-person examination [ ] Records reviewed [ ] Examination via approved video telehealth [ ] Other, please specify in comments box Comments: No response provided. Acceptable Clinical Evidence (HAL) Indicate method used to obtain medical information to complete this document: [ ] Review of available records (without in-per son or video telehealth examination) using the Acceptable Clinical Evid ence (HAL) process because the existing medical evidence provided sufficie nt information on which to prepare the questionnaire and such an examinati on will likely provide no additional relevant evidence. [ ] Review of available records in conjunction with an interview with the (without in-person or telehealth examin ation) using the HAL process because the existing medical evidence s upplemented with an interview provided sufficient information on wh ich to prepare the questionnaire and such an examination would lik skyler provide no additional relevant evidence. Evidence Review Evidence reviewed (check all that apply): [X] [facility] electronic [facility] [X] Other, please identify other evidence revie wed. Evidence Comments: [place], CPRS, VBMS 1. Diagnosis 1A. List the claimed conditions that pertain to this questionnaire: brian knee 1B. Select diagnoses associated with the claime d condition(s) (check all that apply): [X] Knee strain Side affected: [X] Right [ ] Left [ ] Both ICD code: S39.012A Date of diagnosis: Right SC Date of diagnosis: Left [X] Other (specify) [X] Other diagnosis #1 SC for left knee degenerative arthritis with li mitation of motion and lateral meniscus tear of the left kn ee with early degenerative changes. Side affected: [ ] Right [X] Left [ ] Both ICD code: M23 Date of diagnosis: Right Date of diagnosis: Left SC [X] Other diagnosis #2 s/p partial medial meniscectomy and chrondropla sty Side affected: [X] Right [ ] Left [ ] Both ICD code: S83.241A Date of diagnosis: Right 2019 Date of diagnosis: Left If there are additional diagnoses that pertain to knee conditions, list using above format: No response provided. 2. Medical History 2A. Describe the history (including onset and c ourse) of the 's knee and/or lower leg condition (brief summary) : served 02/06/1968-03/06/1970 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 Service connec diane for right knee strain. He reported right knee surgery for torn meniscu s at [facility] in November 2020. He brian knee pain, R>L, constant, occurs w/prolo ng sitting, walking, squatting and kneeling. He reported steroid inj ections, right knee post surgery without effect. He uses heat/ice P RN and bengfermin PRN. No additional surgery, left knee. X-ray, left knee dated 07/18/2020, degenerative findings with small effusion. Fluroscopy, right knee dated 11/03/2020 and 01/26, demonstrate needle placement overlying medial and proximal tibial shaft. There is arthritis of the right knee. Operative Report dated 04/15/2020, [facility], Dr. Derick Russo for right knee medial meniscus tear, s/ p partial medial meniscectomy and chrondroplasty. Last C&P exam dated 12/28/2016 documented: He injured his left knee in 1968 in the service . He had left meniscectomy in 1973. He developed osteoarthrit is of the left knee by 2004. Over the past few years he has had didier n in the right knee. 2B. Does the [place] report flare-ups of the kn ee and/or lower leg? [ ] Yes [X] No 2C. Does the [place] report having any function al loss or functional impairment of the joint or extremity being eval uated on this questionnaire, including but not limited to aft er repeated use over time? [ ] Yes [X] No 2D. Does the [place] report or have a history o f instability or recurrent subluxation of the knee? [ ] Yes [X] No 2E. Does the report or have a history o f frequent effusion of the knee? [ ] Yes [X] No 3. Range of Motion (ROM) and Functional Limitat ion --- Right Knee 3A. Initial ROM measurements [ ] All normal [X] Abnormal or outside of normal range [ ] Unable to test [ ] Not indicated If ROM is outside of normal range, but is nor mal for the [place] (for reason other than a knee/lower leg conditi on, such as age, body habitus, neurologic disease), please describe: No response provided. If abnormal, does the range of motion itself co ntribute to a functional loss? (if yes, please explain) [ ] Yes [X] No No response provided. Can testing be performed? [X] Yes [ ] No If no, provide an explanation: No response provided. If this is the unclaimed joint, is it: [ ] Damaged [X] Undamaged If undamaged, range of motion testing must be c onducted. Active Range of Motion (ROM) - Perform active r rosalba of motion and provide the ROM values. Flexion endpoint (140 degrees): 110 degrees Extension endpoint (0 degrees): 0 degrees If noted on examination, which ROM exhibited pa in (select all that apply): [ ] Flexion [ ] Extension If any limitation of motion is specifically att ributable to pain, weakness, fatigability, incoordination, or othe r; please note the degree(s) in which limitation of motion is spec ifically attributable to the factors identified and describe. No additional comments provided. Passive Range of Motion - Perform passive range of motion and provide the ROM values. Flexion endpoint (140 degrees): Same as active ROM Extension endpoint (0 degrees): Same as active ROM If noted on examination, which ROM exhibited pa in (select all that apply): [ ] Flexion [ ] Extension If any limitation of motion is specifically att ributable to pain, weakness, fatigability, incoordination, or othe r; please note the degree(s) in which limitation of motion is spec ifically attributable to the factors identified and describe. No additional comments provided. If this is the unclaimed joint, is it: No response provided. Comments: No response provided. Is there objective evidence of crepitus? No response provided. Is there objective evidence of localized tender ness or pain on palpation of the joint or associated soft tissu e? No response provided. 3B. Observed repetitive use ROM No response provided. 3C. Repeated use over time No response provided. 3D. Flare-ups No response provided. 3E. Additional factors contributing to disabili ty No response provided. Left Knee --------- 3A. Initial ROM measurements [ ] All normal [X] Abnormal or outside of normal range [ ] Unable to test [ ] Not indicated If ROM is outside of normal range, but is nor mal for the [place] (for reason other than a knee/lower leg conditi on, such as age, body habitus, neurologic disease), please describe: No response provided. If abnormal, does the range of motion itself co ntribute to a functional loss? (if yes, please explain) [ ] Yes [X] No No response provided. Can testing be performed? [X] Yes [ ] No If no, provide an explanation: No response provided. If this is the unclaimed joint, is it: [ ] Damaged [X] Undamaged If undamaged, range of motion testing must be c onducted. Active Range of Motion (ROM) - Perform active r rosalba of motion and provide the ROM values. Flexion endpoint (140 degrees): 120 degrees Extension endpoint (0 degrees): 0 degrees If noted on examination, which ROM exhibited pa in (select all that apply): [ ] Flexion [ ] Extension If any limitation of motion is specifically att ributable to pain, weakness, fatigability, incoordination, or othe r; please note the degree(s) in which limitation of motion is spec ifically attributable to the factors identified and describe. No additional comments provided. Passive Range of Motion - Perform passive range of motion and provide the ROM values. Flexion endpoint (140 degrees): Same as active ROM Extension endpoint (0 degrees): Same as active ROM If noted on examination, which ROM exhibited pa in (select all that apply): [ ] Flexion [ ] Extension If any limitation of motion is specifically att ributable to pain, weakness, fatigability, incoordination, or othe r; please note the degree(s) in which limitation of motion is spec ifically attributable to the factors identified and describe. No additional comments provided. Is there evidence of pain? [ ] Yes [ ] No Comments: No response provided. Is there objective evidence of crepitus? [ ] Yes [ ] No Is there objective evidence of localized tender ness or pain on palpation of the joint or associated soft tissu e? [ ] Yes [ ] No 3B. Observed repetitive use ROM No response provided. 3C. Repeated use over time No response provided. 3D. Flare-ups No response provided. 3E. Additional factors contributing to disabili ty No response provided. 4. Muscle Atrophy No response provided. 5. Ankylosis No response provided. 6. Joint Stability No response provided. 7. Tibial or Fibular Impairment No response provided. 8. Meniscal Conditions No response provided. 9. Surgical Procedures No response provided. 10. Other Pertinent Physical Findings, Complica tions, Conditions, Signs, Symptoms, and Scars 10A. Does the have any other pertinent physical findings, complications, conditions, signs or symptoms re lated to any conditions listed in the diagnosis section abov e? [ ] Yes [X] No If yes, describe (brief summary): No response provided. 10B. Does the [place] have any scars or other d isfigurement (of the skin) related to any conditions or to the treatment o f any conditions listed in the diagnosis section? [X] Yes [ ] No If yes, also complete the appropriate dermatolo gical questionnaire. 11. Assistive Devices 11A. Does the [place] use any assistive devices (other than those noted in Section ) as a normal mode of locomotion, although occasional locomotion by other methods may be possible? [ ] Yes [X] No 11B. If the uses any assistive devices, specify the condition, indicate the side, and identify the assistive d evice used for each condition. No response provided. 12. Remaining Effective Function of the Extremi ties ---- 12A. Due to the Veterans knee or lower leg cond ition(s), is there functional impairment of an extremity such that no effective function remains other than that which would be equally well served by an amputation with prosthesis (functions of the lower extremity include balance and propulsion, etc.)? [ ] Yes, functioning is so diminished that ampu tation with prosthesis would equally serve the [place] [X] No If yes, indicate extremity(ies) for which this applies: [ ] Right lower [ ] Left lower 12B. For each checked extremity, identify the c ondition causing loss of function, describe loss of effective function a nd provide specific examples (brief summary): No response provided. 13. Diagnostic Testing Note: Testing listed below is not indicated for every condition. The diagnosis of degenerative arthritis (osteoarthr itis) or post-traumatic arthritis must be confirmed by imaging studies. Once such arthritis has been documented, even if in the past, no furthe r imaging studies are required by MT, even if arthritis has worsened. 13A. Have imaging studies been performed in con junction with this examination? [ ] Yes [X] No 13B. If yes, is degenerative or post-traumatic arthritis documented? [ ] Yes [ ] No Indicate side. [ ] Right [ ] Left [ ] Both 13C. If yes provide type of test or procedure, date and results (brief summary): No response provided. 13D. Are there any other significant diagnostic test findings or results related to the claimed condition(s) and/or diag nosis(es), that were reviewed in conjunction with this examination? [ ] Yes [X] No If yes, provide type of test or procedure, date and results (brief summary): No response provided 13E. If any test results are other than normal, indicate relationship of abnormal findings to diagnosed conditions: No response provided. 14. Functional Impact 14A. Regardless of the [place]'s current employ ment status, do the conditions listed in the diagnosis section impa ct his/her ability to perform any type of occupational task (such as standing, walking, lifting, sitting etc.)? [X] Yes [ ] No If yes, describe the functional impact of each condition, providing one or more examples: [place] has difficulty prolong sitting, walking , squatting and kneeling. 15. Remarks 15A. Remarks (if any - please identify the sect ion to which the remark pertains when appropriate). There is no change for [place] disability, left knee degenerative arthritis with limitation of motion and lateral meniscus tear, of the left knee, with early degenerative changes. is ID for right knee strain. had right knee surgery on 04/15/2020, s/ p partial medial meniscectomy and chrondroplasty. Knee PE (greyed out areas) 3A. ROM, abnormal, brian knee Evidence of pain [ X ]Yes, brian knee [ ]No Objective evidence of crepitus [ ]Yes [ X ]No Objective evidence of localized tenderness on p alpation [ X ]Yes, brian knee [ ]No 3B. Observed repetitive use [ X ]Yes [ ]No 3C. Repeated use over time [ X ]Yes [ ]No 3D. Flare ups [ ]Yes [ X ]No 3E. Additional factors contributing to disabili ty [ ]Yes [ X ]No 4. Muscle atrophy [ ]Yes [ X ]No 5. Ankylosis [ ]Yes [ X ]No 6. Joint instability [ ]Yes [ X ]No 7. Tibial or fibular impairment [ ]Yes [ X ]No 8. Meniscal conditions [ X ]Yes, brian knee [ ]No 9. Surgical procedure and date, see HPI [ X ]Ye s, brian knee [ ]No 10. Other pertinent physical findings [ ]Yes [ X ]No 11. Scars , refer to Scar DBQ [ X ]Yes [ ]No +++++++++++++++++++++++++++++++++++++++++++++++ +++++++++++++++++++++ ++++ Additional exam request information: For any joint condition, examiners should test the contralateral joint, unless medically contraindicated, and the exami ner should address pain on both passive and active motion, and on both isabella ghtbearing and non- weightbearing. In addition to the questions on the DBQ, please respond to the following questions: 1. Is there evidence of pain on passive range o f motion testing? [ ]Yes [ X ]No [ ] Cannot be performed or is no t medically appropriate 2. Is there evidence of pain when the joint is used in non-weight bearing? [ ]Yes [ X ]No [ ] Cannot be performed or is no t medically appropriate 3. If yes, is the opposing joint undamaged (i.e . no abnormalities)? [ ]Yes [ X ]No +++++++++++++++++++++++++++++++++++++++++++++++ +++++++++++++++++++++ Sharp vs [place] After examination of the , listening to their complete history and current subjective complaints, comb ined with a review of the available records, I have no basis to offer additional losses of function or motion when it comes to repetitive use or during a flare-up. Scars/Disfigurement Disability Benefits Questionnaire Name of patient/[place]: Mati Hopkins Jr Is this DBQ being completed in conjunct ion with a VA [id number], C&P Examination Request? [X] Yes [ ] No How was the examination completed? (check all t hat apply) [X] In-person examination [ ] Records reviewed [ ] Examination via approved video telehealth [ ] Other, please specify in comments box Comments: HAL and Evidence Review Indicate method used to obtain medical information to complete this document: [ ] Review of available records (without in-per son or video telehealth examination) using the Acceptable Clinical Evid ence (HAL) process because the existing medical evidence provided sufficie nt information on which to prepare the questionnaire and such an examinati on will likely provide no additional relevant evidence. [ ] Review of available records in conjunction with an interview with the (without in-person or telehealth examin ation) using the HAL process because the existing medical evidence s upplemented with an interview provided sufficient information on wh ich to prepare the questionnaire and such an examination would lik skyler provide no additional relevant evidence. Evidence Review Evidence reviewed (check all that apply): [X] [facility] electronic [facility] record [X] Other, please identify other evidence revie wed. Evidence Comments: [place], CPRS, VBMS 1. Diagnosis . Does the [place] have one or more scars anywh ere on the body, or disfigurement of the head, face, or neck? Yes Diagnosis #1: [place] for scar ICD code: L90.5 Date of diagnosis: SC . Does the have any scars on the trunk or extremities (regions other than the head, face or neck): Yes . Does the [place] have any scars or di sfigurement of the head, face or neck: No SECTION I: Scars of the trunk and extremities 1. Medical history Describe the history (including cause/origin an d course) of the [place]'s scar(s) of the trunk or extremities, (brief sum britt): served 02/06/1968-03/06/1970 [facility] [place], [facility] [employer]. 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 Service connected for rig ht knee strain. had right knee surgery on 04/15/2020, s/p partial me dial meniscectomy and chrondroplasty. ID for service connected for le ft shoulder impingement syndrome with tendonitis and arthritis, s/p fracture, ORIF, and bone graft of right hip. All scars, nonpainful, well healed a nd stable. . Are any of the scars of the trunk or extremit ies painful: No . Are any of the scars of the trunk or extremit ies unstable, with frequent loss of covering of skin over the scar: No Are any of the scars of the trunk or extremitie s due to belcher: No 2. Physical exam for scars on the trunk and ext remities -------- 2-1. Details of scar findings for the trunk and extremities Right upper extremity: Not affected Left upper extremity: Affected Location of scars on left upper extremity and n umber them: Scar, left shoulder, nonpainful, well healed and stable Indicate the length and width of each scar: Scar #1: 12.0 x 0.3 cm Scar #2: x cm Scar #3: x cm Scar #4: x cm Scar #5: x cm Right lower extremity: Affected Location of scars on right lower extremity and number them: scar #1, right knee, nonpainful, well healed and stable scar #2, right hip (bone graft), nonpainful, we ll healed and stable Indicate the length and width of each scar: Scar #1: 5.0 x 0.2 cm Scar #2: 14.0 x 0.2 cm Scar #3: x cm Scar #4: x cm Scar #5: x cm Left lower extremity: Affected Location of scars on left lower extremity and n umber them: scar, right knee, nonpainful, well healed and stable Indicate the length and width of each scar: Scar #1: 7.0 x 0.2 cm Scar #2: x cm Scar #3: x cm Scar #4: x cm Scar #5: x cm Anterior trunk: Not affected Posterior trunk: Not affected 2-2. Summary of scar findings for the trunk and extremities Scars without underlying tissue damage: Ch: Left upper extremity: Approximate total area: 3 .6 cm2 Right lower extremity: Approximate total area: 3.8 cm2 Left lower extremity: Approximate total area: 1 .4 cm2 Scars with underlying tissue damage: Ch: None SECTION II: Scars or other disfigurement of the head, face, or neck: No response provided SECTION III: Miscellaneous 1. Limitation of function/other conditions Do any of the scars (regardless of location) or disfigurement of the head, face or neck result in limitation of function ( to include limitation of motion)? No Does the [place] have any other pertinent physi estefani findings, complications, conditions, signs and/or symptoms (such as muscle or nerve damage) associated with any scar (regardless of location) or disfi gurement of the head, face or neck? No 2. Color photographs Were color photographs for any scar(s) or disfi guring condition taken?: No 3. Functional impact Does the 's scar(s) (regardless of locat ion) or disfigurement of the head, face or neck impact his or her ability to work? No 4. Remarks, if any: There is no change of [place] disability, scars New scar, right knee, s/p partial medial menisc ectomy and chrondroplasty on 04/15/2020, nonpainful, well healed and stable Historical Questions Is the 's date of claim or date of inten t to file, if applicable, on or prior to December 17, 2017? [ ] Yes [X] No Historical Section I, Question 2-1. Details of scar findings for the trunk and extremeties NOTE: For VA purposes, superficial non-linear s cars are those not associated with underlying soft tissue damage, while deep non-linear scars are associated with underlying soft tissue autsin ge. Using the same scar numbering utilized in Secti on I Question 2-1 above, please indicate the anatomical regions affected and complete the appropriate sections: b. Left Upper Extremity Types of scars and provide measurements: c. Right Lower Extremity Types of scars and provide measurements: d. Left Lower Extremity Types of scars and provide measurements: /justine/ LILIANE DE Nurse Practitioner Signed: 04/15/2021 14:38
--- OUTSIDE RECORDS SUMMARY | 2022-02-03 00:32 | XMS_ITS | Encounter Summary ---
:1950 Author Organization [facility] Address [address] [place] [address] Support Name Relationship Address Phone LORI HOPKINS Unavailable [address] [place] [address] LORI HOPKINS Unavailable [address] [place] [address] Insurance Providers: All historical and current Section [...] Number Silva ANTHZARA PREFERRED STAND May 08 [id number] [phone] PROVIDER SHIVA [phone] RIAN MILLAN FEDERAL ORGANIZAT SELF ION (PPO) BCBS [place] PREFERRED STAND May 08 [id number] [phone] JAMES CE PATIENT FEP PROVIDER SHIVA [phone] RIAN MILLAN ORGANGERMANAT INDIV ION (PPO) IDUAL BCBS OF PREFERRED STAND May 08 [id number] [phone] JAMES CE PATIENT MASS PROVIDER SHIVA [phone] RIAN MILLAN FEDERAL ORGANIZAT SELF ION (PPO) BCBS OF PREFERRED STAND May 08 [id number] [phone] JAMES CE PATIENT MASS FEP PROVIDER SHIVA [phone] RIAN MILLAN ORGANIZAT SELF ION (PPO) BCBS OF DENTAL STAND May 08, DENTAL [id number] [phone] SANDEEP, PATIENT MASS FEP INSURANCE SHIVA [phone] RIAN DENTAL BCBS OF [place] MEDICARE FEP Dec 06 [id number] SANDEEP PATIENT FEP SECONDARY STAND 2019 [phone] RIAN MILLAN (NO B SHIVA EXC) MEDSE C JUSTIN PRESCRIPT FEP Dec 06, [id number] ASNDEEP PATIENT FEP ION ONLY 2013 [phone] RIAN MILLAN CARELIONEL PRESCRIPT May 08, [id number] [phone] EDUARDO MATTHEW PATIENT FEP ION 2011 0 [phone] 1 RIAN MILLAN PRESCRIPT CAREM May 08, [id number] [phone] EDUARDO MATTHEW, PATIENT FEP BCBS ION ARK 2011 0 87 1 RIAN FEPRX PLAN CAREMARK PRESCRIPT May 08, [id number] [phone] EDUARDO ENCEstella PATIENT FEPRX PLAN ION 2011 0 [phone] RIAN MILLAN-F PRESCRIPT FEPRX May 08, [id number] [phone] [place] KVNG PATIENT EP BCBS ION /PT D 2010 0 [phone] 1 RIAN MILLAN [facility] May 18, [id number] [phone] JAMES CE, PATIENT RE JONATAN AL [phone] RIAN CE ORGANIZ EXPRESS PRESCRIPT CONNE May 18, [id number] [phone] JAMES CE, PATIENT SCRIPTS ION CTICA 2003 [id number] RIAN ([id number]) RE MEDICARE MEDICARE PART Oct 06, PART B [id number] JAMES CE, PATIENT (WNR) (M) B 2012 UP33 2 [place] MEDICARE MEDICARE PART Oct 06, PART A [id number] JAMES CE, PATIENT (WNR) (M) A 2012 UP33 00 [place] MEDICARE MEDICARE PART Oct 06, PART A [id number] Lisa HOPKINSIENT (WNR) (M) A 2012 UP33 [id number] [place] MEDICARE MEDICARE PART Oct 06, PART B [id number] JAMES CE, PATIENT (WNR) (M) B 2012 UP33 00 [place] MEDICARE MEDICARE PART Oct 06, PART A [id number] JAMES CE, PATIENT (WNR) (M) A 2012 UP33 7 [place] MEDICARE MEDICARE PART Oct 06, PART B [id number] JAMES CE, PATIENT (WNR) (M) B 2012 UP33 7 [place] MEDICARE MEDICARE PART Oct 06, PART B [id number] Lisa HOPKINS (WNR) (M) B 2012 UP33 [phone] RIAN MEDICARE MEDICARE PART Oct 06, PART A [id number] JAMES CE, PATIENT (WNR) (M) A 2012 UP33 2 RIAN MEDICARE MEDICARE PART Dec 06, PART D [id number] SANDEEP Lisa ATIENT PART D (M) D 2018 UP33 [phone] RIAN (WNR) MEDICARE MEDICARE PART Oct 06, PART D [id number] JAMES CE, PATIENT PART D (M) D 2012 UP33 7 RIAN (WNR) MEDICARE PRESCRIPT PART Oct 06, PART D [id number] LAWRE NCE, PATIENT PART D ION D 2012 [id number] RIAN (WNR) MEDICARE PRESCRIPT PART Oct 06, PART D [id number] LAWRE NCE, PATIENT PART D ION D 2012 [id number] 0 RIAN (WNR) Selected Encounter This section includes the information on record at [place] for the Encounter. Date/Time Encounter Type Encounter Reason Provider Source Description Apr 22, 2021 GAIT TRAINING PHYSICAL THERAPY ICD-10-CM R26.89 VENICE AGUILAR 01:00 PM THERAPY Juan Ramon KIM FANTA abnormalities of gait and mobility with Provider Comments: Other Abnormalities of Gait and Mobility IHE Encounter Template Text not used by [place] Assessments - Encounter Diagnoses This section includes the primary and secondary diagnoses documented for the Encounter. Date/Time Primary/Secondary Diagnosis Name Provider Source Diagnosis Apr 22, 2021 PRIMARY Other abnormalities WITNER ROUSE 01:09 PM of gait and HEN FANTA mobility Plan of Treatment: Future Appointments (+ 6 months) and Future Tests (+/- 45 days) The Plan of Treatment section includes future care activities for the patient from all [place] treatmentfacilities. This section includes future appointments and future orders which are active, pending orscheduled.Future Appointments This section includes appointments that were scheduled to occur 6 months from the date of the Encounter, up to a maximum of 20 appointments. The data comes from all [place] treatment facilities. Appointment Date/Time Appointment Type Appointment Facili ty Name May 03, 2021 01:45 PM AMBULATORY - [place]ICINE [place] CNTR[facility]hana ROSALESCHANIBAL [facility] May 05, 2021 03:00 PM [facility] Jun 01, 2021 02:00 PM AMBULATORY [facility] Jun 02, 2021 12:30 PM AMBULATORY [facility] Jun 04, 2021 12:30 PM AMBULATORY [facility] Jun 08, 2021 02:00 PM [facility] [place] Jun 16, 2021 02:00 PM AMBULATORY [facility] Jun 18, 2021 01:00 PM [facility] Curtis CASPER [facility] Jun 22, 2021 02:00 PM AMBULATORY [facility] Jun 23, 2021 01:00 [facility]LEMAN[facility] Jul 07, 2021 11:00 AM AMBULATORY [facility] Jul 13, 2021 02:00 PM AMBULATORY [facility] Jul 20, 2021 02:30 PM AMBULATORY [facility] Aug 05, 2021 02:00 PM AMBULATORY [facility] Aug 16, 2021 02:00 PM AMBULATORY [facility] Aug 26, 2021 02:00 PM AMBULATORY [facility] Sep 03, 2021 11:00 AM [facility] Lab Results: +/- 30 days of the [...] Interpretation Reference Range Comment Apr 20, 2021 [place] VITAMIN D (25-OH) Specimen Type : SERUM 11:34 AM Comment: GLUCOS E Verified by repeat analysis. CALLED DR NG 04/20/21@1432 [facility] Read-back was completed. Ordering Provid er: ROMULO CHONG Report Released Date/Time: Apr 07, 2021 01:54 PM Reporting Lab: [address] [address] Performing Lab: [address] [address] VITAMIN D (25-OH) <13 L 20-50 Apr 20, 2021 [place] BASIC METABOLIC Specimen Type: SERUM 11:34 AM PANEL (fasting) Comment: GLUCOS E Verified by repeat analysis. CALLED DR NG 04/20/21@1432 [facility] Read-back was completed. Ordering Provid er: ROMULO CHONG Report Released Date/Time: Apr 07, 2021 01:54 PM Reporting Lab: [address] [address] Performing Lab: [address] [address] UREA NITROGEN 25 7-25 GLUCOSE 48 LL 65-100 SODIUM 141 135-145 POTASSIUM 4.3 3.5-5.0 CHLORIDE 105 100-110 CO2 29 20-30 CREATININE, Serum 1.82 H 0.50-1.40 eGFR (IDMS) 37 L >60 Apr 20, 2021 [place] LIPID PANEL FASTING Specimen Ty pe: SERUM 11:34 AM Comment: GLUCOS E Verified by repeat analysis. CALLED DR GN 04/20/21@1432 [facility] Read-back was completed. Ordering Provid er: ROMULO CHONG Report Released Date/Time: Apr 07, 2021 01:54 PM Reporting Lab: [address] [address] Performing Lab: [address] [address] CHOLESTEROL 181 0-199 TRIGLYCERIDE 193 H 0-150 LDL calculated 95 0-129 CHOL/HDL 3.9 HDL CHOLESTEROL 47 40-60 Apr 20, 2021 [place] HEMOGLOBIN A1C PANEL Specimen T ype: BLOOD [...] Apr 07, 2021 01:54 PM Reporting Lab: [facility] [place] [facility] [address] [address] Performing Lab: [facility]ITAL[facility] [address] [address] HEMOGLOBIN A1C 9.2 H 4.0-5.6 Apr 20, 2021 11:34 [place] LIVER FUNCTION Specimen Typ e: SERUM AM Comment: GLUCOS E Verified by repeat analysis. CALLED DR NG 04/20/21@1432 [facility] Read-back was completed. Ordering Provid er: ROMULO CHONG Report Released Date/Time: Apr 07, 2021 01:54 PM Reporting Lab: [facility] [address] [address] Performing Lab: [facility] [address] [address] PROTEIN,TOTAL 6.7 6.0-8.3 ALBUMIN 3.3 L 3.5-5.0 ALKALINE PHOSPHATASE 60 40-150 AST 14 5-34 ALT 15 0-55 BILIRUBIN, TOTAL 0.4 0.2-1.2 Apr 20, 2021 11:34 AM [place] TSH Specimen Type: SERUM Comment: GLUCOS E Verified by repeat analysis. CALLED DR NG 04/20/21@1432 [facility] Read-back was completed. Ordering Provid er: ROMULO CHONG Report Released Date/Time: Apr 07, 2021 01:54 PM Reporting Lab: [facility] [place] [facility] [address] [address] Performing Lab: [facility] [address] [address] TSH 3.57 0.35-5.00 Apr 20, 2021 [place] MICROALBUMIN Specimen Type: URINE 11:34 AM CREATININE RATIO PANEL No commen t entered. Ordering Provid er: ROMULO CHONG Report Released Date/Time: Apr 07, 2021 01:54 PM Reporting Lab: [facility] [address] [address] Performing Lab: [facility] [address] [address] MICROALBUMIN/CREATININE RATIO canc 0-29.9 MICROALBUMIN,QUANTITATIVE > 300.0 RR U NAVAIL CREATININE URINE 173.58 Apr 20, 2021 [place] CBC AND DIFF Specimen Type: BLOOD 11:34 AM (AUTO) No comment enter ed. Ordering Provid er: ROMULO CHONG Report Released Date/Time: Apr 07, 2021 01:54 PM Reporting Lab: [address] [address] Performing Lab: [address] [address] WBC 10.37 4.50-11.00 RBC 4.83 4.23-5.66 HGB 14.2 12.8-17 HCT 44.0 39.2-50.4 MCV 91.1 82-99 MCHC 32.3 30.8-35.1 PLT 286 140-360 RDW-CV 13.0 12.0-16.0 [place], Abs 1.04 0.30-1.10 MCH 29.4 26.2-32.6 Neut % 42.3 Lymph % 42.3 [place] % 10.0 Eos % 4.5 Baso % [...] smoking and tobacco-related health factors from the [place] facility where the Encounter took place.Current Smoking Status This section includes the most current smoking, or tobacco-related health factor, from the [place] facility where the Encounter took place. Date/Time Current Smoking Status Comment Facility September 17, 2020 02:00 PM [place]-TOBACCO FORMER USER [facility] Tobacco Use History This section includes a history of the smoking, or tobacco- related health factors, that were collected on or before the date of the Encounter. The data comes from the [place] facility where the Encounter took place. Date/Time Smoking Status/Tobacco Use Comment Facil ity September 17, 2020 02:00 PM [place]-TOBACCO QUIT 15 YRS OR [facility] Jan 10, 2020 02:00 PM VA-TOBACCO FORMER USER [facility] Jan 10, 2020 02:00 PM VA-TOBACCO QUIT 15 YRS OR [facility] Mar 23, 2018 02:31 PM VA-TOBACCO FORMER USER [facility] Mar 23, 2018 02:31 PM VA-TOBACCO QUIT 15 YRS OR [facility] MORE September 19, 2017 01:43 PM QUIT TOBACCO USE > 7 YEARS [facility] September 15, 2016 01:21 PM QUIT TOBACCO USE > 7 YEARS [place] AGO quit 40 years ago May 12, 2015 10:44 AM QUIT TOBACCO USE > 7 YEARS [facility] Dec 27, 2006 10:00 AM QUIT TOBACCO USE > 7 YEARS [place] Dec 26, 2005 08:41 AM QUIT TOBACCO USE 1-7 YEARS [place] Aug 11, 2005 08:42 AM QUIT TOBACCO USE IN PAST [facility] Dec 09, 2004 08:20 AM QUIT TOBACCO USE IN PAST [facility] 2003Apr 02, 2004 08:07 AM QUIT TOBACCO USE IN PAST [facility] Quit several wks ago Jun 02, 2003 01:48 PM CURRENT SMOKER RADHA Reece States ocassionally Jan 31, 2002 01:44 PM HISTORY OF SMOKING [place] stopped tobacco 1 year ago Jan 31, 2002 01:44 PM QUIT TOBACCO USE 1-7 YEARS [facility] Apr 25, 2001 03:26 PM NON-TOBACCO USER [facility] Stopped tobacco 3 years ago September 12, 2000 03:24 PM HISTORY OF SMOKING [place] Quit cigaretts 2 years ago Encounter Notes: All associated encounter notes This section contains the clinical notes associated to the Encounter. Date/Time Encounter Note(s) Provider Source Apr 22, 2021 01:09 PM PHYSICAL THERAPY CONSULT: EDY ROUSE [facility] TITLE: PHYSICAL THERAPY CONSULT STANDARD TITLE: PHYSICAL THERAPY CONSULT DATE OF NOTE: APR 22, 2021@13:09 ENTRY DATE: APR 22, 2021@13:09:14 AUTHOR: PEDRO ROUSE EXP COSIGNER: URGENCY: STATUS: COMPLETED How does the patient/client best learn? Pictures , Reading, Listening, Demonstration Does the patient/client have any cultural and re ligious beliefs, emotional barriers, physical or cogniti ve limitations, and communication barriers which may impact his/her ability to learn? No Desire and motivation to learn? Good PROSTHETIC CHECKOUT- Physical Therapy Referring physician: Calvin Dx: Other Abnormalities of Gait and Mobility (IC D-10-CM R26.89) (Primary) treatment time: 15 min Pt was issued: Rollator walker. Sized and traine d on the device (x) Pt is I and safe with use of equipment () Pt requires assistance: () Pt was educated to use, care, and safety of t he equipment and demonstrated/verbalized understanding of same. (x) Pt was issued manual or written instructions . (x) Suggested pt call this therapist with any qu estions. (x) Goal of safe use of equipment met. No furthe r services provided at this time. () Other: Patient Education Education provided on the following topics: HEP Education provided to: P Response to Education: VU RD PI Nguyen Patient P Family F Significant Other SO Verbalizes Understanding VU Returns Demonstration RD Performs Independently PI Lacks Comprehension LC Refused Education RE Not Applicable NA The practitioner's co-signature on this note sig nifies agreement with the plan of care and clinical diagnosis code. /justine/ PEDRO ROUSE DPT Physical Therapist Signed: 04/22/2021 13:10
--- OUTSIDE RECORDS SUMMARY | 2022-02-03 00:33 | XMS_ITS | Encounter Summary ---
:1950 Author Organization Department [facility] rs Address [address] [place] [address] Support Name Relationship Address Phone LORI HOPKINS Unavailable [address] [place] [address] [place] [address] LORI HOPKINS Unavailable [address] [facility] [phone] [place] [address] Insurance Providers: All historical and current Section [...] Number Silva JARRED PREFERRED STAND May 08 [id number] PROVIDER SHIVA 2011 [id number] RIAN MILLAN FEDERAL ORGANIZAT SELF ION (PPO) BCBS ME PREFERRED STAND May 08 [id number] [phone] JAMES CE PATIENT FEP PROVIDER SHIVA 2010 87 123 RIAN MILLAN ORGANGERMANAT INDIV ION (PPO) IDUAL BCBS OF PREFERRED STAND May 08 [id number] [phone] JAMES CE PATIENT MASS PROVIDER SHIVA 2010 87 3 RIAN MILLAN FEDERAL ORGANIZAT SELF ION (PPO) BCBS OF PREFERRED STAND May 08 [id number] [phone] JAMES CE PATIENT MASS FEP PROVIDER SHIVA 2010 87 6 RIAN MILLAN ORGANIZAT SELF ION (PPO) BCBS OF DENTAL STAND May 08, DENTAL [id number] [phone] SANDEEP, PATIENT MASS FEP INSURANCE SHIVA 2010 87 6 RIAN DENTAL BCBS OF [place] MEDICARE FEP Dec 06 [id number] SANDEEP PATIENT FEP SECONDARY STAND 2019 [phone] RIAN MILLAN (NO B SHIVA EXC) MEDSE C CAREMARK PRESCRIPT FEP Dec 06, [id number] SANDEEP PATIENT FEP ION ONLY 2014 0 [phone] RIAN MILLAN CAR[place]ARK PRESCRIPT May 08, [id number] [phone] EDUARDO ENCEstella PATIENT FEP ION 2011 0 87 1 RIAN MILLAN PRESCRIPT CAREM May 08, [id number] [phone] EDUARDO ENCEstella, PATIENT FEP BCBS ION ARK 2011 0 87 1 RIAN FEPRX PLAN CAREMARK PRESCRIPT May 08, [id number] [phone] LAWR ENCE PATIENT FEPRX PLAN ION 2011 0 87 331 RIAN MILLAN-F PRESCRIPT FEPRX May 08, [id number] [phone] LA WRENCE PATIENT EP BCBS ION /PT D 2010 0 87 1 RIAN MILLAN [facility] May 18, [id number] [phone] JAMES CE, PATIENT RE [facility] 2003 32 7 RIAN CE ORGANIZ EXPRESS PRESCRIPT CONNE May 18, [id number] [phone] JAMES CE, PATIENT SCRIPTS ION CTICA 2003 [id number] RIAN ([id number]) RE MEDICARE MEDICARE PART Oct 06, PART A [id number] Lisa HOPKINS (WNR) (M) A 2012 UP33 [phone] JOSEPH MEDICARE MEDICARE PART Oct 06, PART B [id number] 800 Lisa HOPKINS (WNR) (M) B 2012 UP33 [phone] [place]PH MEDICARE MEDICARE PART Oct 06, PART A [id number] JAMES CE, PATIENT (WNR) (M) A 2013 UP33 00 JO[place]PH MEDICARE MEDICARE PART Oct 06, PART B [id number] JAMES CE, PATIENT (WNR) (M) B 2013 UP33 00 [place] MEDICARE MEDICARE PART Oct 06, PART A [id number] JAMES CE, PATIENT (WNR) (M) A 2013 UP33 2 [place]PH MEDICARE MEDICARE PART Oct 06, PART A [id number] JAMES CE, PATIENT (WNR) (M) A 2012 UP33 7 RIAN MEDICARE MEDICARE PART Oct 06, PART B [id number] JAMES CE, PATIENT (WNR) (M) B 2012 UP33 7 RIAN MEDICARE MEDICARE PART Oct 06, PART B [id number] JAMES CE, PATIENT (WNR) (M) B 2012 UP33 2 RIAN MEDICARE MEDICARE PART Dec 06, PART D [id number] Lisa HOPKINS ATIENT PART D (M) D 2018 UP33 [phone] RIAN (WNR) MEDICARE PRESCRIPT PART Oct 06, PART D [id number] LAWRE NCE, PATIENT PART D ION D 2012 32A 0 RIAN (WNR) MEDICARE PRESCRIPT PART Oct 06, PART D [id number] LAWRE NCE, PATIENT PART D ION D 2012 UP33 0 RIAN (WNR) MEDICARE MEDICARE PART Oct 06, PART D [id number] JAMES CE, PATIENT PART D (M) D 2012 UP33 7 RIAN (WNR) Selected Encounter This section includes the information on record at [place] for the Encounter. Date/Time Encounter Type Encounter Reason Provider Source Description Apr 12, 2021 02:47 Outpatient PRIMARY KIN,MARIBETH PM Encounter CARE/MEDICINE E DAVINA IHEstella Encounter Template Text not used by IN [...] 13, 2021 02:00 PM AMBULATORY - PSYCHIATRY [facility] SHANIQUA PANDEY [facility] Apr 13, 2021 02:30 PM AMBULATORY - PSYCHIATRY [place] Apr 21, 2021 11:00 AM AMBULATORY - MEDICINE [place] Apr 22, 2021 01:00 PM AMBULATORY - REHAB MEDICINE [facility] May 03, 2021 01:45 PM [facility] May 05, 2021 03:00 PM [facility]Y [facility] Jun 01, 2021 02:00 PM AMBULATORY [facility] Jun 02, 2021 12:30 PM AMBULATORY [facility] Jun 04, 2021 12:30 PM AMBULATORY [facility] Jun 08, 2021 02:00 PM [facility]A COLEMAN[facility]AUR[facility] Jun 16, 2021 02:00 PM AMBULATORY [facility] Jun 18, 2021 01:00 PM AMBULATORY MEDICINE [facility] WSTRN Curtis CASPER [facility] Jun 22, 2021 02:00 PM AMBULATORY [facility] Jun 23, 2021 01:00 PM [facility] SANDRA COLEMANUSETS [facility] Jul 07, 2021 11:00 AM AMBULATORY [facility] Jul 13, 2021 02:00 PM [facility] Jul 20, 2021 02:30 PM [facility] Aug 05, 2021 02:00 PM [facility] Aug 16, 2021 02:00 PM [facility] Aug 26, 2021 02:00 PM [facility] Lab Results: +/- 30 days of [...] Interpretation Reference Range Comment Apr 20, 2021 [place] VITAMIN D (25-OH) Specimen Type : SERUM 11:34 AM Comment: GLUCOS E Verified by repeat analysis. CALLED DR NG 04/20/21@1432 [facility] Read-back was completed. Ordering Provid er: ROMULO CHONG Report Released Date/Time: Apr 07, 2021 01:54 PM Reporting Lab: [address] [address] Performing Lab: [address] [address] VITAMIN D (25-OH) <13 L 20-50 Apr 20, 2021 [place] HEMOGLOBIN A1C PANEL Specimen T ype: BLOOD [...] Apr 07, 2021 01:54 PM Reporting Lab: [address] [address] Performing Lab: [address] [address] HEMOGLOBIN A1C 9.2 H 4.0-5.6 Apr 20, 2021 [place] LIPID PANEL FASTING Specimen Ty pe: SERUM 11:34 AM Comment: GLUCOS E Verified by repeat analysis. CALLED DR NG 04/20/21@1432 [facility] Read-back was completed. Ordering Provid er: ROMULO CHONG Report Released Date/Time: Apr 07, 2021 01:54 PM Reporting Lab: [facility] [address] [facility] [address] Performing Lab: [address] [address] CHOLESTEROL 181 0-199 TRIGLYCERIDE 193 H 0-150 LDL calculated 95 0-129 CHOL/HDL 3.9 HDL CHOLESTEROL 47 40-60 Apr 20, 2021 11:34 [place] LIVER FUNCTION Specimen Typ e: SERUM AM Comment: GLUCOS E Verified by repeat analysis. CALLED DR NG 04/20/21@1432 [facility] Read-back was completed. Ordering Provid er: ROMULO CHONG Report Released Date/Time: Apr 07, 2021 01:54 PM Reporting Lab: [address] [address] Performing Lab: [address] [place] [address] PROTEIN,TOTAL 6.7 6.0-8.3 ALBUMIN 3.3 L 3.5-5.0 ALKALINE PHOSPHATASE 60 40-150 AST 14 5-34 ALT 15 0-55 BILIRUBIN, TOTAL 0.4 0.2-1.2 Apr 20, 2021 11:34 AM [place] TSH Specimen Type: SERUM Comment: GLUCOS E Verified by repeat analysis. CALLED DR NG 04/20/21@1432 [facility] Read-back was completed. Ordering Provid er: ROMULO CHONG Report Released Date/Time: Apr 07, 2021 01:54 PM Reporting Lab: [facility] [address] [address] Performing Lab: [facility] [address] [address] TSH 3.57 0.35-5.00 Apr 20, 2021 [place] MICROALBUMIN Specimen Type: URINE 11:34 AM CREATININE RATIO PANEL No commen t entered. Ordering Provid er: ROMULO CHONG Report Released Date/Time: Apr 07, 2021 01:54 PM Reporting Lab: [facility] [address] [facility] [address] Performing Lab: [facility] [address] MICROALBUMIN/CREATININE RATIO canc 0-29.9 MICROALBUMIN,QUANTITATIVE > 300.0 RR U NAVAIL CREATININE URINE 173.58 Apr 20, 2021 [place] BASIC METABOLIC Specimen Type: SERUM 11:34 AM PANEL (fasting) Comment: GLUCOS E Verified by repeat analysis. CALLED DR NG 04/20/21@1432 [facility] Read-back was completed. Ordering Provid er: ROMULO CHONG Report Released Date/Time: Apr 07, 2021 01:54 PM Reporting Lab: [facility] [place] [facility] [address] [facility] [address] Performing Lab: [facility]ITAL[facility] [address] UREA NITROGEN 25 7-25 GLUCOSE 48 LL 65-100 SODIUM 141 135-145 POTASSIUM 4.3 3.5-5.0 CHLORIDE 105 100-110 CO2 29 20-30 CREATININE, Serum 1.82 H 0.50-1.40 eGFR (IDMS) 37 L >60 Apr 20, 2021 [place] CBC AND DIFF Specimen Type: BLOOD 11:34 AM (AUTO) No comment enter ed. Ordering Provid er: ROMULO CHONG Report Released Date/Time: Apr 07, 2021 01:54 PM Reporting Lab: [facility] [address] [facility] [address] Performing Lab: [facility] [address] [facility] [address] WBC 10.37 4.50-11.00 RBC 4.83 4.23-5.66 HGB 14.2 12.8-17 HCT 44.0 39.2-50.4 MCV 91.1 82-99 MCHC 32.3 30.8-35.1 PLT 286 140-360 RDW-CV 13.0 12.0-16.0 Edgar, Abs 1.04 0.30-1.10 MCH 29.4 26.2-32.6 Neut % 42.3 Lymph % 42.3 Edgar % 10.0 Eos % 4.5 Baso % 0.7 Neut, Abs 4.38 2.20-7.60 Lymph, Abs 4.39 H 1.00-3.20 Eos, Abs 0.47 H 0.03-0.44 Baso, Abs 0.07 0.01-0.13 Immature Gran % 0.2 Immature Gran, Abs 0.02 0.00-0.06 Encounter Notes: All associated encounter notes This section contains the clinical notes associated to the Encounter. Date/Time Encounter Note(s) Provider Source Apr 12, 2021 02:47 PM PRIMARY CARE SECURE MESSAGING: MAGNUS SANDERSON [facility] W[facility]N LOCAL TITLE: PRIMARY CARE SECURE MESSAGING [facility] STANDARD TITLE: PRIMARY CARE SECURE MESSAGING DATE OF NOTE: APR 12, 2021@14:47 ENTRY DATE: APR 12, 2021@14:48:03 AUTHOR: MAGNUS SANDERSON EXP COSIGNER: URGENCY: STATUS: COMPLETED ------Original Message Sent: 04/12/2021 02:30 PM From: RIAN HOPKINS To: ARLETTEO_PRIMARY CARE_[facility] Subject: Medication: Omeprazole 20mg ec cap rx # [id number] - This is still not on my Med. list can you please fill it and check my Med list. /es/ Magnus Sanderson RN Registered Nurse Signed: 04/12/2021 14:48
--- OUTSIDE RECORDS SUMMARY | 2022-02-03 00:33 | XMS_ITS | Encounter Summary ---
:1950 Author Organization Department [facility] rs Address [address] [place] [address] Support Name Relationship Address Phone LORI HOPKINS Unavailable [address] [place] [address] [phone] [place] [address] LORI HOPKINS Unavailable [address] [facility] [phone] [place] [address] Insurance Providers: All historical and current Section [...] Number Silva JARRED PREFERRED STAND May 08 [id number] PROVIDER SHIVA 2011 87 [id number] RIAN MILLAN FEDERAL ORGANIZAT SELF ION (PPO) [place]BS [place] PREFERRED STAND May 08 [id number] [phone] JAMES CE PATIENT FEP PROVIDER SHIVA 2010 87 123 RIAN MILLAN ORGANGERMANAT INDIV ION (PPO) IDUAL BCBS OF PREFERRED STAND May 08 [id number] [phone] JAMES CE PATIENT MASS PROVIDER SHIVA 2010 87 3 RIAN MILLAN FEDERAL ORGANIZAT SELF ION (PPO) BCBS OF PREFERRED STAND May 08 [id number] [phone] JAMES CE PATIENT MASS FEP PROVIDER SHIVA 2010 87 6 RIAN MILLAN ORGANIZAT SELF ION (PPO) BCBS OF DENTAL STAND May 08, DENTAL [id number] [phone] SANDEEP, PATIENT MASS FEP INSURANCE SHIVA 2010 87 6 RIAN DENTAL [place]BS OF [place] MEDICARE FEP Dec 06 [id number] SANDEEP PATIENT FEP SECONDARY STAND 2019 [phone] RIAN MILLAN (NO B SHIVA EXC) MEDSE C CAREMARK PRESCRIPT FEP Dec 06, [id number] SANDEEP PATIENT FEP ION ONLY 2014 0 [phone] RIAN MILLAN [place] PRESCRIPT May 08, [id number] [phone] EDUARDO ENCEstella PATIENT FEP ION 2011 0 87 1 RIAN MILLAN PRESCRIPT CAREM May 08, [id number] [phone] EDUARDO ENCEstella, PATIENT FEP BCBS ION ARK 2011 0 87 1 RIAN FEPRX PLAN CAREMARK PRESCRIPT May 08, [id number] [phone] LAWR ENCE PATIENT FEPRX PLAN ION 2011 0 87 331 RIAN MILLAN-F PRESCRIPT FEPRX May 08, [id number] [phone] LA WRENCE PATIENT EP BCBS ION /PT D 2010 0 87 1 RIAN MILLAN [facility] May 18, [id number] [phone] JAMES CE, PATIENT RE [place] 2003 32 7 RIAN CE ORGANIZ EXPRESS PRESCRIPT CONNE May 18, [id number] [phone] JAMES CE, PATIENT SCRIPTS ION CTICA 2003 [id number] 7 RIAN ([id number]) RE MEDICARE MEDICARE PART Oct 06, PART A [id number] [phone] JAMES CE, PATIENT (WNR) (M) A 2012 UP33 2 JOSEPH MEDICARE MEDICARE PART Oct 06, PART A [id number] JAMES CE, PATIENT (WNR) (M) A 2013 UP33 00 [place] MEDICARE MEDICARE PART Oct 06, PART B [id number] JAMES CE, PATIENT (WNR) (M) B 2012 UP33 2 [place] MEDICARE MEDICARE PART Oct 06, PART B [id number] [phone] JAMES CE, PATIENT (WNR) (M) B 2013 UP33 00 [place] MEDICARE MEDICARE PART Oct 06, PART A [id number] Lisa HOPKINS (WNR) (M) A 2012 UP25 [id number] [place] MEDICARE MEDICARE PART Oct 06, PART A [id number] [phone] JAMES CE, PATIENT (WNR) (M) A 2012 UP33 7 RIAN MEDICARE MEDICARE PART Oct 06, PART B [id number] [phone] JAMES CE, PATIENT (WNR) (M) B 2012 UP33 7 RIAN MEDICARE MEDICARE PART Oct 06, PART B [id number] Lisa HOPKINS ATIENT (WNR) (M) B 2012 UP33 [phone] RIAN MEDICARE MEDICARE PART Dec 06, PART D [id number] Lisa HOPKINS ATIENT PART D (M) D 2018 UP33 [phone] RIAN (WNR) MEDICARE MEDICARE PART Oct 06, PART D [id number] [phone] JAMES CE, PATIENT PART D (M) D 2012 UP33 7 RIAN (WNR) MEDICARE PRESCRIPT PART Oct 06, PART D [id number] LAWRE NCE, PATIENT PART D ION D 2012 32A 0 RIAN (WNR) MEDICARE PRESCRIPT PART Oct 06, PART D [id number] LAWRE NCE, PATIENT PART D ION D 2012 UP33 0 RIAN (WNR) Selected Encounter This section includes the information on record at [place] for the Encounter. Date/Time Encounter Type Encounter Description Reason Provider Source Apr 12, 2021 10:20 Outpatient Encounter PRIMARY CARE/MEDICINE AM [facility] Encounter Template Text not used by [place] Plan of Treatment: Future Appointments (+ 6 months) and Future Tests (+/- 45 days) The Plan of Treatment section includes future care activities for the patient from all [place] treatmentfacilities. This section includes future appointments and future orders which are active, pending orscheduled.Future Appointments This section includes appointments that were scheduled to occur 6 months from the date of the Encounter, up to a maximum of 20 appointments. The data comes from all [place] treatment facilities. Appointment Date/Time Appointment Type Appointment Facili ty Name Apr 13, 2021 02:00 PM AMBULATORY - PSYCHIATRY [facility] SHANIQUA PANDEY [facility] Apr 13, 2021 02:30 PM AMBULATORY - PSYCHIATRY [place] Apr 21, 2021 11:00 AM AMBULATORY - MEDICINE [place] Apr 22, 2021 01:00 PM AMBULATORY - REHAB MEDICINE [facility] May 03, 2021 01:45 PM AMBULATORY MEDICINE [facility] SHANIQUA CASPER [facility] May 05, 2021 03:00 PM AMBULATORY - REHAB MEDICINE [facility] Cosmo PANDEY [facility] Jun 01, 2021 02:00 PM AMBULATORY [facility] Jun 02, 2021 12:30 PM AMBULATORY [facility] Jun 04, 2021 12:30 PM AMBULATORY [facility] Jun 08, 2021 02:00 PM [facility]A [facility] Jun 16, 2021 02:00 PM AMBULATORY [facility] Jun 18, 2021 01:00 PM AMBULATORY MEDICINE [facility] WSNURY CASPER [facility] Jun 22, 2021 02:00 PM AMBULATORY [facility] Jun 23, 2021 01:00 PM [facility] Cosmo PANDEY [facility] Jul 07, 2021 11:00 AM AMBULATORY [facility] Jul 13, 2021 02:00 PM [facility] Jul 20, 2021 02:30 PM [facility] Aug 05, 2021 02:00 PM [facility] Aug 16, 2021 02:00 PM [facility] Aug 26, 2021 02:00 PM [facility] Lab Results: +/- 30 days of the encounter This section includes the Chemistry and Hematology Lab Results on record with [place] for the patient. Radiology Reports and Pathology Reports are provided separately, in subsequent sections.Lab Results This section contains the Chemistry/Hematology Results that were resulted 30 days before or 30 daysafter the date of the Encounter. Date/Time Source Result Type Result - Unit Interpretation Reference Range Comment Apr 20, 2021 [place] VITAMIN D (25-OH) Specimen Type : SERUM 11:34 AM Comment: GLUCOS E Verified by repeat analysis. CALLED DR NG 04/20/21@5904 [facility] Read-back was completed. Ordering Provid er: ROMULO CHONG Report Released Date/Time: Apr 07, 2021 01:54 PM Reporting Lab: [facility] [address] [facility] [address] Performing Lab: [address] [address] VITAMIN D (25-OH) <13 L 20-50 Apr 20, 2021 [place] HEMOGLOBIN A1C PANEL Specimen T ype: BLOOD [...] 2021 01:54 PM Reporting Lab: [facility] [address] [facility] [address] Performing Lab: [address] [address] HEMOGLOBIN A1C 9.2 H 4.0-5.6 Apr 20, 2021 [place] LIPID PANEL FASTING Specimen Ty pe: SERUM 11:34 AM Comment: GLUCOS E Verified by repeat analysis. CALLED DR NG 04/20/21@1432 [facility] Read-back was completed. Ordering Provid er: ROMULO CHONG Report Released Date/Time: Apr 07, 2021 01:54 PM Reporting Lab: [facility] [address] [facility] [address] Performing Lab: [address] [address] CHOLESTEROL 181 0-199 TRIGLYCERIDE 193 H 0-150 LDL calculated 95 0-129 CHOL/HDL 3.9 HDL CHOLESTEROL 47 40-60 Apr 20, 2021 11:34 [place] LIVER FUNCTION Specimen Typ e: SERUM AM Comment: GLUCOS E Verified by repeat analysis. CALLED DR NG 04/20/21@1432 [facility] Read-back was completed. Ordering Provid er: ROMULO CHONG Report Released Date/Time: Apr 07, 2021 01:54 PM Reporting Lab: [facility] [address] [facility] [address] Performing Lab: [address] [address] PROTEIN,TOTAL 6.7 6.0-8.3 ALBUMIN 3.3 L 3.5-5.0 ALKALINE PHOSPHATASE 60 40-150 AST 14 5-34 ALT 15 0-55 BILIRUBIN, TOTAL 0.4 0.2-1.2 Apr 20, 2021 11:34 AM [place] TSH Specimen Type: SERUM Comment: GLUCOS E Verified by repeat analysis. CALLED DR NG 04/20/21@1432 [facility] Read-back was completed. Ordering Provid er: ROMULO CHONG Report Released Date/Time: Apr 07, 2021 01:54 PM Reporting Lab: [facility] [address] [facility] [address] Performing Lab: [facility] [address] [facility] [address] TSH 3.57 0.35-5.00 Apr 20, 2021 [place] MICROALBUMIN Specimen Type: URINE 11:34 AM CREATININE RATIO PANEL No commen t entered. Ordering Provid er: ROMULO CHONG Report Released Date/Time: Apr 07, 2021 01:54 PM Reporting Lab: [facility] [address] [facility] [address] Performing Lab: [facility] [address] [facility] [address] MICROALBUMIN/CREATININE RATIO canc 0-29.9 MICROALBUMIN,QUANTITATIVE > 300.0 RR U NAVAIL CREATININE URINE 173.58 Apr 20, 2021 [place] BASIC METABOLIC Specimen Type: SERUM 11:34 AM PANEL (fasting) Comment: GLUCOS E Verified by repeat analysis. CALLED DR NG 04/20/21@1432 [facility] Read-back was completed. Ordering Provid er: ROMULO CHONG Report Released Date/Time: Apr 07, 2021 01:54 PM Reporting Lab: [facility]ITALTRN [place] [facility] [address] [facility] [address] Performing Lab: [facility] [address] UREA NITROGEN 25 7-25 GLUCOSE 48 LL 65-100 SODIUM 141 135-145 POTASSIUM 4.3 3.5-5.0 CHLORIDE 105 100-110 CO2 29 20-30 CREATININE, Serum 1.82 H 0.50-1.40 eGFR (IDMS) 37 L >60 Apr 20, 2021 [place] CBC AND DIFF Specimen Type: BLOOD 11:34 AM (AUTO) No comment enter ed. Ordering Provid er: ROMULO CHONG Report Released Date/Time: Apr 07, 2021 01:54 PM Reporting Lab: [facility] [address] [facility] [address] Performing Lab: [facility] [address] [facility] [address] WBC 10.37 4.50-11.00 RBC 4.83 4.23-5.66 HGB 14.2 12.8-17 HCT 44.0 39.2-50.4 MCV 91.1 82-99 MCHC 32.3 30.8-35.1 PLT 286 140-360 RDW-CV 13.0 12.0-16.0 Luce, Abs 1.04 0.30-1.10 MCH 29.4 26.2-32.6 Neut % 42.3 Lymph % 42.3 Luce % 10.0 Eos % 4.5 Baso % 0.7 Neut, Abs 4.38 2.20-7.60 Lymph, Abs 4.39 H 1.00-3.20 Eos, Abs 0.47 H 0.03-0.44 Baso, Abs 0.07 0.01-0.13 Immature Gran % 0.2 Immature Gran, Abs 0.02 0.00-0.06 Encounter Notes: All associated encounter notes This section contains the clinical notes associated to the Encounter. Date/Time Encounter Note(s) Provider Source Apr 12, 2021 10:20 AM PRIMARY CARE TELEPHONE ENCOUNTER NOTE: JOVAN GUDINO LOCAL TITLE: TELEPHONE NOTE/PRIMARY CARE STANDARD TITLE: PRIMARY CARE TELEPHONE ENCOUNTER NOTE DATE OF NOTE: APR 12, 2021@10:20 ENTRY DATE: APR 12, 2021@10:20:50 AUTHOR: JOVAN HOOVER EXP COSIGNER: URGENCY: STATUS: COMPLETED Oncology Technician LVCurtis that appointment on 04/22/21 was canc elled due to provider not in clinic.LVM to call back to make new appt. Oncology Technician also sent letter. /justine/ JOVAN VANEGAS Signed: 04/12/2021 10:21
--- OUTSIDE RECORDS SUMMARY | 2022-02-03 00:33 | XMS_ITS | Encounter Summary ---
:1950 Author Organization [facility] Address [address] [place] [id number] Support Name Relationship Address Phone LORI HOPKINS Unavailable [address] [phone] [place] [address] LORI HOPKINS Unavailable [address] [place] [address] Insurance Providers: All historical and current Section [...] Number Silva JARRED PREFERRED STAND May 08 [id number] [phone] PROVIDER SHIVA 2010 [id number] [phone] RIAN MILLAN FEDERAL ORGANIZAT SELF ION (PPO) BCBS NM PREFERRED STAND May 08 [id number] [phone] JAMES CE PATIENT FEP PROVIDER SHIVA [phone] RIAN MILLAN ORGANGERMANAT INDIV ION (PPO) IDUAL BCBS OF PREFERRED STAND May 08 [id number] [phone] JAMES CE PATIENT MASS PROVIDER SHIVA 2010 [id number] 3 IRAN MILLAN FEDERAL ORGANIZAT SELF ION (PPO) BCBS OF PREFERRED STAND May 08 [id number] [phone] JAMES CE PATIENT MASS FEP PROVIDER SHIVA 2010 87 [phone] RIAN MILLAN ORGANIZAT SELF ION (PPO) BCBS OF DENTAL STAND May 08, DENTAL [id number] [phone] SANDEEP, PATIENT MASS FEP INSURANCE SHIVA 2010 87 6 RIAN DENTAL BCBS OF [place] MEDICARE FEP Dec 06 [id number] SANDEEP PATIENT FEP SECONDARY STAND 2019 [phone] RIAN MILLAN (NO B SHIVA EXC) MEDSE C CAREMARK PRESCRIPT FEP Dec 06, [id number] SANDEEP PATIENT FEP ION ONLY 2013 [phone] RIAN MILLAN PRESCRIPT May 08, [id number] [phone] EDUARDO MATTHEW PATIENT FEP ION 2011 0 87 1 RIAN MILLAN PRESCRIPT CAREM May 08, [id number] [phone] EDUARDO MATTHEW, PATIENT FEP BCBS ION ARK 2011 0 87 1 RIAN FEPRX PLAN CAREMARK PRESCRIPT May 08, [id number] [phone] [phone] ENCEstella PATIENT FEPRX PLAN ION 2010 0 [phone] RIAN MILLAN-F PRESCRIPT FEPRX May 08, [id number] [phone] LA JENENCE PATIENT EP BCBS ION /PT D 2010 [address] [facility] May 18, [id number] [phone] JAMES CE, PATIENT RE JONATAN AL 2003 32 7 RIAN CE ORGANIZ EXPRESS PRESCRIPT CONNE May 18, [id number] [phone] JAMES CE, PATIENT SCRIPTS ION CTICA 2002 [id number] RIAN ([id number]) RE MEDICARE MEDICARE PART Oct 06, PART B [id number] Lisa HOPKINS (WNR) (M) B 2012 UP33 [phone] JOSEPH MEDICARE MEDICARE PART Oct 06, PART A [id number] [phone] JAMES CE, PATIENT (WNR) (M) A 2012 UP33 00 JOSEPH MEDICARE MEDICARE PART Oct 06, PART B [id number] [phone] JAMES CE, PATIENT (WNR) (M) B 2012 UP33 00 JOSEPH MEDICARE MEDICARE PART Oct 06, PART A [id number] [phone] JAMES CE, PATIENT (WNR) (M) A 2012 UP33 2 JOSEPH MEDICARE MEDICARE PART Oct 06, PART A [id number] [phone] JAMES CE, PATIENT (WNR) (M) A 2012 UP33 7 JOSEPH MEDICARE MEDICARE PART Oct 06, PART B [id number] [phone] JAMES CE, PATIENT (WNR) (M) B 2012 UP33 7 JOSEPH MEDICARE MEDICARE PART Oct 06, PART B [id number] [id number] JAMES SIMON, PATIENT (WNR) (M) B 2012 UP33 2 RIAN MEDICARE MEDICARE PART Oct 06, PART A [id number] Lisa HOPKINS ATIENT (WNR) (M) A 2012 UP33 [phone] RIAN MEDICARE MEDICARE PART Dec 06, PART D [id number] Lisa HOPKINS ATIENT PART D (M) D 2018 UP33 [phone] RIAN (WNR) MEDICARE PRESCRIPT PART Oct 06, PART D [id number] [phone] LAWRE NCE, PATIENT PART D ION D 2012 [id number] RIAN (WNR) MEDICARE PRESCRIPT PART Oct 06, PART D [id number] [phone] LAWRE NCE, PATIENT PART D ION D 2012 UP33 0 RIAN (WNR) MEDICARE MEDICARE PART Oct 06, PART D [id number] [phone] JAMES CE, PATIENT PART D (M) D 2012 UP33 7 RIAN (WNR) Selected Encounter This section includes the information on record at [place] for the Encounter. Date/Time Encounter Type Encounter Reason Provider Source Description Apr 13, 2021 PSYTX W PT 30 MENTAL HEALTH ICD-10-CM F43.10 AARON MESSINA 02:00 PM [facility] - [facility] Post-traumatic stress disorder, unspecified with Provider Comments: Posttraumatic stress disorder ([facility] [id number]) [facility] Encounter Template Text not used by CO Assessments - Encounter Diagnoses This section includes the primary and secondary diagnoses documented for the Encounter. Date/Time Primary/Secondary Diagnosis Name Provider Source Diagnosis Apr 13, 2021 PRIMARY Post-traumatic AARON MESSINA [facility] 02:42 PM stress disorder, unspecified Plan of Treatment: Future Appointments (+ 6 months) and Future Tests (+/- 45 days) The Plan of Treatment section includes future care activities for the patient from all [place] treatmentfacilities. This section includes future appointments and future orders which are active, pending orscheduled.Future Appointments This section includes appointments that were scheduled to occur 6 months from the date of the Encounter, up to a maximum of 20 appointments. The data comes from all [place] treatment facilities. Appointment Date/Time Appointment Type Appointment Facili ty Name Apr 21, 2021 11:00 AM AMBULATORY - MEDICINE [facility] Apr 22, 2021 01:00 PM AMBULATORY - REHAB MEDICINE [facility] May 03, 2021 01:45 PM [facility] May 05, 2021 03:00 PM [facility] [place] [facility] Jun 01, 2021 02:00 PM AMBULATORY [facility] Jun 02, 2021 12:30 PM AMBULATORY [facility] Jun 04, 2021 12:30 PM AMBULATORY - PSYCHIATRY [facility] Jun 08, 2021 02:00 PM [facility] [place] [facility] Jun 16, 2021 02:00 PM AMBULATORY - PSYCHIATRY [facility] Jun 18, 2021 01:00 PM [facility] [place] [facility] Jun 22, 2021 02:00 PM AMBULATORY [facility] Jun 23, 2021 01:00 PM AMBULATORY - REHAB MEDICINE [facility] W [facility] Jul 07, 2021 11:00 AM AMBULATORY - MEDICINE [facility] Jul 13, 2021 02:00 PM AMBULATORY [facility] Jul 20, 2021 02:30 PM AMBULATORY [facility] Aug 05, 2021 02:00 PM AMBULATORY [facility] Aug 16, 2021 02:00 PM [facility] Aug 26, 2021 02:00 PM [facility] Sep 03, 2021 11:00 AM [facility] Lab Results: +/- 30 days of the encounter This section includes the Chemistry and Hematology Lab Results on record with CO for the patient. Radiology Reports and Pathology Reports are provided separately, in subsequent sections.Lab Results This section contains the Chemistry/Hematology Results that were resulted 30 days before or 30 daysafter the date of the Encounter. Date/Time Source Result Type Result - Unit Interpretation Reference Range Comment Apr 20, 2021 [facility] VITAMIN D (25-OH) Specimen Type : SERUM 11:34 AM Comment: GLUCOS E Verified by repeat analysis. CALLED DR NG 04/20/21@4506 [facility] Read-back was completed. Ordering Provid er: ROMULO CHONG Report Released Date/Time: Apr 07, 2021 01:54 PM Reporting Lab: [address] [address] Performing Lab: [facility] [address] [facility] [address] VITAMIN D (25-OH) <13 L 20-50 Apr 20, 2021 [facility] BASIC METABOLIC Specimen Type: SERUM 11:34 AM PANEL (fasting) Comment: GLUCOS E Verified by repeat analysis. CALLED DR NG 04/20/21@1432 [facility] Read-back was completed. Ordering Provid er: ROMULO CHONG Report Released Date/Time: Apr 07, 2021 01:54 PM Reporting Lab: [address] [address] Performing Lab: [address] [address] UREA NITROGEN 25 7-25 GLUCOSE 48 LL 65-100 SODIUM 141 135-145 POTASSIUM 4.3 3.5-5.0 CHLORIDE 105 100-110 CO2 29 20-30 CREATININE, Serum 1.82 H 0.50-1.40 eGFR (IDMS) 37 L >60 Apr 20, 2021 [facility] HEMOGLOBIN A1C PANEL Specimen T ype: BLOOD [...] Apr 07, 2021 01:54 PM Reporting Lab: [address] [address] Performing Lab: [address] [address] HEMOGLOBIN A1C 9.2 H 4.0-5.6 Apr 20, 2021 [facility] LIPID PANEL FASTING Specimen Ty pe: SERUM 11:34 AM Comment: GLUCOS E Verified by repeat analysis. CALLED DR NG 04/20/21@1432 [facility] Read-back was completed. Ordering Provid er: ROMULO CHONG Report Released Date/Time: Apr 07, 2021 01:54 PM Reporting Lab: [facility] [address] [facility] [address] Performing Lab: [facility] [address] [facility] [facility] [address] CHOLESTEROL 181 0-199 TRIGLYCERIDE 193 H 0-150 LDL calculated 95 0-129 CHOL/HDL 3.9 HDL CHOLESTEROL 47 40-60 Apr 20, 2021 11:34 [facility] LIVER FUNCTION Specimen Typ e: SERUM AM Comment: GLUCOS E Verified by repeat analysis. CALLED DR NG 04/20/21@1432 [facility] Read-back was completed. Ordering Provid er: ROMULO CHONG Report Released Date/Time: Apr 07, 2021 01:54 PM Reporting Lab: [facility] [address] [facility] [address] Performing Lab: [facility] [address] [facility] [address] PROTEIN,TOTAL 6.7 6.0-8.3 ALBUMIN 3.3 L 3.5-5.0 ALKALINE PHOSPHATASE 60 40-150 AST 14 5-34 ALT 15 0-55 BILIRUBIN, TOTAL 0.4 0.2-1.2 Apr 20, 2021 11:34 AM [facility] TSH Specimen Type: SERUM Comment: GLUCOS E Verified by repeat analysis. CALLED DR NG 04/20/21@1432 [facility] Read-back was completed. Ordering Provid er: ROMULO CHONG Report Released Date/Time: Apr 07, 2021 01:54 PM Reporting Lab: [facility] [address] [facility] [address] Performing Lab: [facility] [address] [facility] [address] TSH 3.57 0.35-5.00 Apr 20, 2021 [facility] MICROALBUMIN Specimen Type: URINE 11:34 AM CREATININE RATIO PANEL No commen t entered. Ordering Provid er: ROMULO CHONG Report Released Date/Time: Apr 07, 2021 01:54 PM Reporting Lab: [address] [address] Performing Lab: [address] [address] MICROALBUMIN/CREATININE RATIO canc 0-29.9 MICROALBUMIN,QUANTITATIVE > 300.0 RR U NAVAIL CREATININE URINE 173.58 Apr 20, 2021 [facility] CBC AND DIFF Specimen Type: BLOOD 11:34 AM (AUTO) No comment enter ed. Ordering Provid er: ROMULO CHONG Report Released Date/Time: Apr 07, 2021 01:54 PM Reporting Lab: [address] [address] Performing Lab: [address] [address] WBC 10.37 4.50-11.00 RBC 4.83 4.23-5.66 HGB 14.2 12.8-17 HCT 44.0 39.2-50.4 MCV 91.1 82-99 MCHC 32.3 30.8-35.1 PLT 286 140-360 RDW-CV 13.0 12.0-16.0 [place], Abs 1.04 0.30-1.10 MCH 29.4 26.2-32.6 Neut % 42.3 Lymph % 42.3 [place] % 10.0 Eos % 4.5 Baso % [...] smoking and tobacco-related health factors from the CO facility where the Encounter took place.Current Smoking Status This section includes the most current smoking, or tobacco-related health factor, from the [place] facility where the Encounter took place. Date/Time Current Smoking Status Comment Facility September 17, 2020 02:00 PM VA-TOBACCO FORMER USER [facility] Tobacco Use History This section includes a history of the smoking, or tobacco- related health factors, that were collected on or before the date of the Encounter. The data comes from the [place] facility where the Encounter took place. Date/Time Smoking Status/Tobacco Use Comment [facility] September 17, 2020 02:00 PM VA-TOBACCO QUIT 15 YRS OR [facility] Jan 10, 2020 02:00 PM VA-TOBACCO FORMER USER [facility] Jan 10, 2020 02:00 PM VA-TOBACCO QUIT 15 YRS OR [facility] Mar 23, 2018 02:31 PM VA-TOBACCO FORMER USER [facility] Mar 23, 2018 02:31 PM VA-TOBACCO QUIT 15 YRS OR [facility] September 19, 2017 01:43 PM QUIT TOBACCO USE > 7 YEARS [facility] September 15, 2016 01:21 PM QUIT TOBACCO USE > 7 YEARS [facility] quit 40 years ago May 12, 2015 10:44 AM QUIT TOBACCO USE > 7 YEARS [facility] Dec 27, 2006 10:00 AM QUIT TOBACCO USE > 7 YEARS [facility] Dec 26, 2005 08:41 AM QUIT TOBACCO USE 1-7 YEARS [facility] Aug 11, 2005 08:42 AM QUIT TOBACCO USE IN PAST [facility] Dec 09, 2004 08:20 AM QUIT TOBACCO USE IN PAST [facility] 2003Apr 02, 2004 08:07 AM QUIT TOBACCO USE IN PAST [facility] Quit several wks ago Jun 02, 2003 01:48 PM CURRENT SMOKER RADHA Taveras ocassionally Jan 31, 2002 01:44 PM HISTORY OF SMOKING WESTLEY SOODKAREN stopped tobacco 1 year ago Jan 31, 2002 01:44 PM QUIT TOBACCO USE 1-7 YEARS [facility] Apr 25, 2001 03:26 PM NON-TOBACCO USER MATHEUS JONES Stopped tobacco 3 years ago September 12, 2000 03:24 PM HISTORY OF SMOKING WESTLEY HUI Quit cigaretts 2 years ago Encounter Notes: All associated encounter notes This section contains the clinical notes associated to the Encounter. Date/Time Encounter Note(s) Provider Source Apr 13, 2021 02:23 PM PSYCHOLOGY NOTE: AARON MESSINA LOCAL TITLE: PSYCHOLOGY NOTE STANDARD TITLE: PSYCHOLOGY NOTE DATE OF NOTE: APR 13, 2021@14:23 ENTRY DATE: APR 13, 2021@14:23:10 AUTHOR: AARON MESSINA COSIGNER: URGENCY: STATUS: COMPLETED VISIT DURATION 30 minutes DIAGNOSES: PTSD (ICD-10-CM F43.10) [facility] STATEMENT OF GOALS/CONCERNS: [place] indicated that his treatment goals inclu de: 1) anger management SESSION FOCUS: indicated that he was interested in focu sing on anger management in psychotherapy. He related that he believes his a nger was associated with his PTSD. Conversation explored ways in which his an simon affects his life (e.g., relationship issues). He and undersigned briefly began to discuss helpful coping strategies to manage his frustration/rosalba r. Tunica also indicated that he continues to engage in pleasant activiti es such as cooking and taking care of his chickens. He stated that he has been experiencing sleep and mood challenges, and that he plans to speak with Dr. Oliveira further during their appointment this afternoon. Support and encourag ement were provided throughout the appointment. He related that he plans to schedule his cancell ed appointment with his PCP. He also indicated that he plans to schedule a Co vid booster appointment. INTERVENTIONS: Psychotherapeutic Interventions: Approaches use d include rapport building, life review, supportive therapy, and skills-base d interventions. ASSESSMENT: BRIEF ASSESSMENT OF MENTAL STATUS: 1. Appearance (grooming, attire, apparent age) within normal limits: Yes; He ambulated with a cane 2. Thought content was organized and goal direc diane: Yes 3. Speech was coherent and unimpaired: Yes 4. Affect was appropriate and unremarkable: Yes 5. Demeanor was calm, with no signs of agitatio n or restlessness: Yes 6. Sleep was largely unimpaired and restful: No; He indicated that he has been experiencing sleep issues 7. No evidence of psychosis (hallucinations or delusions): Yes No evidence of psychosis currently 8. Mood was normal: Yes; 's mood was euthymic Other Observations: He arrived a few minutes la te to the appointment. He was oriented X3, alert, and cooperative. His diana rt-term memory and long-term memory appeared intact overall. Insight and judg ment also appeared within normal limits. Attention and concentration were within normal limits. RISK ASSESSMENT: He denied any current SI/HI, intent, or plan. Clark zapata indicated that there were times in the past month in which he experie nced passive SI (i.e., wish I was ), but he denied having any actual th oughts of killing himself. He is aware of the [facility] needed. He was encouraged to contact undersigned if needed. PLAN FOR FOLLOW-UP: Next session planned for: 06/01/21 at 2:00pm, ale kee is aware that he can contact undersigned or walk-in at anytime prior to the next appointment. Suicide Screen: C-SSRS Screening [place]-Suicide Severity Rating Scale (C-SSRS Screener) 1. Over the past month, have you wished you wer e or wished you could go to sleep and not wake up? Yes 2. Over the past month, have you had any actual thoughts of killing yourself? No 3. Over the past month, have you been thinking about how you might do this? Response not required due to responses to other questions. 4. Over the past month, have you had these thou ghts and had some intention of acting on them? Response not required due to responses to other questions. 5. Over the past month, have you started to wor k out or worked out the details of how to kill yourself? Response not required due to responses to other questions. 6. If yes, at any time in the past month did dave u intend to carry out this plan? Response not required due to responses to other questions. 7. In your lifetime, have you ever done anythin g, started to do anything, or prepared to do anything to end you r life (for example, collected pills, obtained a gun, gave away valu nadiya, went to the roof but didn't jump)? No 8. If YES, was this within the past 3 months? Response not required due to responses to other questions. /justine/ AARON MESSINA PSYD Clinical Psychologist Signed: 04/13/2021 14:50
--- OUTSIDE RECORDS SUMMARY | 2022-02-03 00:33 | XMS_ITS | Encounter Summary ---
:1950 Author Organization [facility] Address [address] [place] [id number] Support Name Relationship Address Phone LORI HOPKINS Unavailable [address] [facility] [place] [address] LORI HOPKINS Unavailable [address] [facility] [place] [address] Insurance Providers: All historical and current Section [...] Number Silva ANTHZARA PREFERRED STAND May 08 [id number] [phone] PROVIDER SHIVA 2011 [id number] [phone] RIAN MILLAN FEDERAL ORGANIZAT SELF ION (PPO) BCBS NE PREFERRED STAND May 08 [id number] [phone] JAMES CE PATIENT FEP PROVIDER SHIVA [phone] RIAN MILLAN ORGANGERMANAT INDIV ION (PPO) IDUAL BCBS OF PREFERRED STAND May 08 [id number] [phone] JAMES CE PATIENT MASS PROVIDER SHIVA 2010 [id number] 3 RIAN MILLAN FEDERAL ORGANIZAT SELF ION (PPO) BCBS OF PREFERRED STAND May 08 [id number] [phone] JAMES CE PATIENT MASS FEP PROVIDER SHIVA [phone] RIAN MILLAN ORGANIZAT SELF ION (PPO) BCBS OF DENTAL STAND May 08, DENTAL [id number] [phone] SANDEEP, PATIENT MASS FEP INSURANCE SHIVA [phone] RIAN DENTAL [place] OF [place] MEDIC[place] FEP Dec 06 [id number] SANDEEP PATIENT FEP SECONDARY STAND 2019 [phone] RIAN MILLAN (NO B SHIVA EXC) MEDSE C CAREMARK PRESCRIPT FEP Dec 06, [id number] SANDEEP PATIENT FEP ION ONLY 2013 [phone] RIAN MILLAN CARELIONEL PRESCRIPT May 08, [id number] [phone] EDUARDO ENCEstella PATIENT FEP ION 2011 0 87 1 RIAN MILLAN PRESCRIPT CAREM May 08, [id number] [phone] EDUARDO ENCEstella, PATIENT FEP BCBS ION ARK 2011 0 87 1 RIAN FEPRX PLAN CAREMARK PRESCRIPT May 08, [id number] [phone] [phone] ENCE PATIENT FEPRX PLAN ION 2011 0 [id number] [phone] RIAN MILLAN-F PRESCRIPT FEPRX May 08, [id number] [phone] LA JENENCE PATIENT EP BCBS ION /PT D 2010 0 87 1 RIAN MILLAN [facility] May 18, [id number] [phone] JAMES CE, PATIENT RE JONATAN AL 2003 32 7 RIAN CE ORGANIZ EXPRESS PRESCRIPT CONNE May 18, [id number] [phone] JAMES CE, PATIENT SCRIPTS ION CTICA 2003 [id number] RIAN ([id number]) RE MEDICARE MEDICARE PART Oct 06, PART A [id number] JAMES CE, PATIENT (WNR) (M) A 2012 UP33 00 JOSEPH MEDICARE MEDICARE PART Oct 06, PART B [id number] [phone] JAMES CE, PATIENT (WNR) (M) B 2012 UP33 00 [place] MEDICARE MEDICARE PART Oct 06, PART A [id number] [phone] JAMES CE, PATIENT (WNR) (M) A 2012 UP33 2 [place] MEDICARE MEDICARE PART Oct 06, PART B [id number] [phone] JAMES CE, PATIENT (WNR) (M) B 2013 UP33 2 [place] MEDICARE MEDICARE PART Oct 06, PART A [id number] Lisa HOPKINS (WNR) (M) A 2012 UP33 [phone] RIAN MEDICARE MEDICARE PART Oct 06, PART A [id number] [phone] JAMES CE, PATIENT (WNR) (M) A 2012 UP33 7 RIAN MEDICARE MEDICARE PART Oct 06, PART B [id number] [phone] JAMES CE, PATIENT (WNR) (M) B 2012 UP33 7 RIAN MEDICARE MEDICARE PART Oct 06, PART B [id number] Lisa HPOKINS ATIENT (WNR) (M) B 2012 UP33 [phone] RIAN MEDICARE MEDICARE PART Dec 06, PART D [id number] Lisa HOPKINS ATIENT PART D (M) D 2018 UP33 [phone] RIAN (WNR) MEDICARE MEDICARE PART Oct 06, PART D [id number] [phone] JAMES CE, PATIENT PART D (M) D 2012 UP33 7 RIAN (WNR) MEDICARE PRESCRIPT PART Oct 06, PART D [id number] [phone] LAWRE NCE, PATIENT PART D ION D 2012 [id number] RIAN (WNR) MEDICARE PRESCRIPT PART Oct 06, PART D [id number] [phone] LAWRE NCE, PATIENT PART D ION D 2012 UP33 0 RIAN (WNR) Selected Encounter This section includes the information on record at [place] for the Encounter. Date/Time Encounter Type Encounter Reason Provider Source Description Apr 13, 2021 OFFICE O/P EST MENTAL HEALTH ICD-10-CM F43.10 LEAVITT JONE 02:30 PM MOD 30-39 MIN CLINIC - IND Post-traumatic EN G stress disorder, unspecified with Provider Comments: Posttraumatic stress disorder ([facility] [id number]) IHE Encounter Template Text not used by [facility] Assessments - Encounter Diagnoses This section includes the primary and secondary diagnoses documented for the Encounter. Date/Time Primary/Secondary Diagnosis Name Provider Source Diagnosis Apr 13, 2021 PRIMARY Post-traumatic TREEPEDRONATALIA LINKEL D 03:42 PM stress disorder, G unspecified Apr 13, 2021 SECONDARY Major depressive TREEPEDRO NEERAJKATELYN ELD 03:42 PM disorder, single G episode, unspecified Apr 13, 2021 SECONDARY Other chronic pain TREEPEDRONATALIA PICKARD [facility] 03:42 PM G Apr 13, 2021 SECONDARY Restless legs TREEPEDRONATALIA PICKARDVINOD 03:42 PM syndrome G Apr 13, 2021 SECONDARY Sleep apnea, PEDRO LEAVITT 03:42 PM unspecified G Plan of Treatment: Future Appointments (+ 6 months) and Future Tests (+/- 45 days) The Plan of Treatment section includes future care activities for the patient from [facility] [place] [facility]. This section includes future appointments and future orders which are active, pending orscheduled.Future Appointments This section includes appointments that were scheduled to occur 6 months from the date of the Encounter, up to a maximum of 20 appointments. The data comes from all [place] treatment facilities. Appointment Date/Time Appointment Type Appointment Facili ty Name Apr 21, 2021 11:00 AM [facility] Apr 22, 2021 01:00 PM [facility] May 03, 2021 01:45 PM [facility] May 05, 2021 03:00 PM [facility] Jun 01, 2021 02:00 PM [facility] Jun 02, 2021 12:30 PM [facility] Jun 04, 2021 12:30 PM [facility] Jun 08, 2021 02:00 PM [facility] [place] [facility] Jun 16, 2021 02:00 PM [facility] Jun 18, 2021 01:00 PM [facility] Jun 22, 2021 02:00 PM [facility] Jun 23, 2021 01:00 PM [facility] [place] [facility] Jul 07, 2021 11:00 AM [facility] Jul 13, 2021 02:00 PM [facility] Jul 20, 2021 02:30 PM [facility] Aug 05, 2021 02:00 PM [facility] Aug 16, 2021 02:00 PM [facility] Aug 26, 2021 02:00 PM [facility] Sep 03, 2021 11:00 AM [facility] Lab Results: +/- 30 days of the encounter This section includes the Chemistry and Hematology Lab Results on record with [place] for the patient. Radiology Reports and Pathology Reports are provided separately, in subsequent sections.Lab Results This section contains the Chemistry/Hematology Results that were resulted 30 days before or 30 daysafter the date of the Encounter. Date/Time Source Result Type Result - Unit Interpretation Reference Range Comment Apr 20, 2021 [facility] VITAMIN D (25-OH) Specimen Type : SERUM 11:34 AM Comment: GLUCOS E Verified by repeat analysis. CALLED DR NG 04/20/21@1432 [facility] Read-back was completed. Ordering Provid er: ROMULO CHONG Report Released Date/Time: Apr 07, 2021 01:54 PM Reporting Lab: [address] [address] Performing Lab: [address] [address] VITAMIN D (25-OH) <13 L 20-50 Apr 20, 2021 [facility] BASIC METABOLIC Specimen Type: SERUM 11:34 AM PANEL (fasting) Comment: GLUCOS E Verified by repeat analysis. CALLED DR NG 04/20/21@1432 [facility] Read-back was completed. Ordering Provid er: ROMULO CHONG Report Released Date/Time: Apr 07, 2021 01:54 PM Reporting Lab: [address] [address] Performing Lab: [address] [address] UREA NITROGEN 25 7-25 GLUCOSE 48 LL 65-100 SODIUM 141 135-145 POTASSIUM 4.3 3.5-5.0 CHLORIDE 105 100-110 CO2 29 20-30 CREATININE, Serum 1.82 H 0.50-1.40 eGFR (IDMS) 37 L >60 Apr 20, 2021 [facility] HEMOGLOBIN A1C PANEL Specimen T ype: BLOOD [...] Apr 07, 2021 01:54 PM Reporting Lab: [facility] [address] [facility] [address] Performing Lab: [facility] [address] [facility] [address] HEMOGLOBIN A1C 9.2 H 4.0-5.6 Apr 20, 2021 [facility] LIPID PANEL FASTING Specimen Ty pe: SERUM 11:34 AM Comment: GLUCOS E Verified by repeat analysis. CALLED DR NG 04/20/21@1432 [facility] Read-back was completed. Ordering Provid er: ROMULO CHONG Report Released Date/Time: Apr 07, 2021 01:54 PM Reporting Lab: [address] [address] Performing Lab: [address] [address] CHOLESTEROL 181 0-199 TRIGLYCERIDE 193 H 0-150 LDL calculated 95 0-129 CHOL/HDL 3.9 HDL CHOLESTEROL 47 40-60 Apr 20, 2021 11:34 [facility] LIVER FUNCTION Specimen Typ e: SERUM AM Comment: GLUCOS E Verified by repeat analysis. CALLED DR NG 04/20/21@1432 [facility] Read-back was completed. Ordering Provid er: ROMULO CHONG Report Released Date/Time: Apr 07, 2021 01:54 PM Reporting Lab: [address] [address] Performing Lab: [address] [address] PROTEIN,TOTAL 6.7 6.0-8.3 ALBUMIN 3.3 L 3.5-5.0 ALKALINE PHOSPHATASE 60 40-150 AST 14 5-34 ALT 15 0-55 BILIRUBIN, TOTAL 0.4 0.2-1.2 Apr 20, 2021 11:34 AM [facility] TSH Specimen Type: SERUM Comment: GLUCOS E Verified by repeat analysis. CALLED DR NG 04/20/21@1432 [facility] Read-back was completed. Ordering Provid er: ROMULO CHONG Report Released Date/Time: Apr 07, 2021 01:54 PM Reporting [facility] [place] [facility] [address] [facility] [address] Performing Lab: [place] [facility] [place] [place] [facility] [address] [facility] [address] TSH 3.57 0.35-5.00 Apr 20, 2021 [facility] MICROALBUMIN Specimen Type: URINE 11:34 AM CREATININE RATIO PANEL No commen t entered. Ordering Provid er: ROMULO CHONG Report Released Date/Time: Apr 07, 2021 01:54 PM Reporting Lab: [place] [facility] [address] [address] Performing Lab: [place] [facility] [address] [address] MICROALBUMIN/CREATININE RATIO canc 0-29.9 MICROALBUMIN,QUANTITATIVE > 300.0 RR U NAVAIL CREATININE URINE 173.58 Apr 20, 2021 [facility] CBC AND DIFF Specimen Type: BLOOD 11:34 AM (AUTO) No comment enter ed. Ordering Provid er: ROMULO HCONG Report Released Date/Time: Apr 07, 2021 01:54 PM Reporting Lab: [place] [facility] [address] [facility] [address] Performing Lab: [place] [facility] [address] [address] WBC 10.37 4.50-11.00 RBC 4.83 4.23-5.66 HGB 14.2 12.8-17 HCT 44.0 39.2-50.4 MCV 91.1 82-99 MCHC 32.3 30.8-35.1 PLT 286 140-360 RDW-CV 13.0 12.0-16.0 Juab, Abs 1.04 0.30-1.10 MCH 29.4 26.2-32.6 Neut % 42.3 Lymph % 42.3 Juab % 10.0 Eos % 4.5 Baso % [...] smoking and tobacco-related health factors from the [place] facility where the Encounter took place.Current Smoking Status This section includes the most current smoking, or tobacco-related health factor, from the [place] facility where the Encounter took place. Date/Time Current Smoking Status Comment Facility September 17, 2020 02:00 PM VA-TOBACCO FORMER USER [facility] Tobacco Use History This section includes a history of the smoking, or tobacco- related health factors, that were collected on or before the date of the Encounter. The data comes from the [facility] where the Encounter took place. Date/Time Smoking Status/Tobacco Use Comment [facility] September 17, 2020 02:00 PM VA-TOBACCO QUIT 15 YRS OR [facility] Jan 10, 2020 02:00 PM VA-TOBACCO FORMER USER [facility] Jan 10, 2020 02:00 PM VA-TOBACCO QUIT 15 YRS OR [facility] Mar 23, 2018 02:31 PM VA-TOBACCO FORMER USER [facility] Mar 23, 2018 02:31 PM VA-TOBACCO QUIT 15 YRS OR [facility] September 19, 2017 01:43 PM QUIT TOBACCO USE > 7 YEARS [facility] September 15, 2016 01:21 PM QUIT TOBACCO USE > 7 YEARS [facility] quit 40 years ago May 12, 2015 10:44 AM QUIT TOBACCO USE > 7 YEARS [facility] Dec 27, 2006 10:00 AM QUIT TOBACCO USE > 7 YEARS [facility] Dec 26, 2005 08:41 AM QUIT TOBACCO USE 1-7 YEARS [facility] Aug 11, 2005 08:42 AM QUIT TOBACCO USE IN PAST [facility] Dec 09, 2004 08:20 AM QUIT TOBACCO USE IN PAST COUNT INCLUDES THE [facility] 2003Apr 02, 2004 08:07 AM QUIT TOBACCO USE IN PAST COUNT INCLUDES THE [facility] Quit several wks ago Jun 02, 2003 01:48 PM CURRENT SMOKER NIKOLAYSHARON Taveras ocassionally Jan 31, 2002 01:44 PM HISTORY OF SMOKING [facility] stopped tobacco 1 year ago Jan 31, 2002 01:44 PM QUIT TOBACCO USE 1-7 YEARS [facility] Apr 25, 2001 03:26 PM NON-TOBACCO USER [facility] Stopped tobacco 3 years ago September 12, 2000 03:24 PM HISTORY OF SMOKING [facility] Quit cigaretts 2 years ago Encounter Notes: All associated encounter notes This section contains the clinical notes associated to the Encounter. Date/Time Encounter Note(s) Provider Source Apr 13, 2021 03:53 PM MENTAL HEALTH TREATMENT PLAN NOTE: PEDRO LEAVITT [facility] LOCAL TITLE: MH TREATMENT PLAN STANDARD TITLE: MENTAL HEALTH TREATMENT PLAN NOT E DATE OF NOTE: APR 13, 2021@15:53:36 ENTRY DATE: APR 13, 2021@15:53:52 AUTHOR: PEDRO LEAVITT EXP COSIGNER: URGENCY: STATUS: COMPLETED MH TREATMENT PLAN - Apr, @ 03:53 PM Visit Date: Apr, @ 14:30 - [facility] [facility] MH FOREIGN LAW CONSULTANT: PEDRO LEAVITT / [facility] TEAM MEMBERS: PEDRO LEAVITT: PSYCHIATRIST PATIENT PARTICIPATION IN TREATMENT PLANNING: MET WITH PROVIDER. MENTAL HEALTH DIAGNOSES AND RELEVANT MEDICAL CON DITIONS: Depression ([facility] [id number]) Co-management (ICD-10-CM R69.) Tear of left rotator cuff ([facility] [id number] ) Posttraumatic stress disorder ([facility] [id number]) Type 2 diabetes mellitus in obese ([facility] 73960723) Mixed hyperlipidemia ([facility] [id number]) Restless legs ([facility] [id number]) Insomnia ([facility] [id number]) Chronic pain ([facility] 88834836) Sleep apnea ([facility] 22927730) Coronary artery disease ([facility] 20853215) Osteoarthritis ([facility] 350147734) Essential hypertension ([facility] 50436410) Hypercholesterolemia ([facility] [id number]) TREATMENT PLAN: Problem: ptsd/depression Goal: improved ptsd/depression sx's Objective: improved ptsd/depression sx's, as me asured by pt report Intervention: psychopharm and encourage psychot herapy Provider: PEDRO LEAVITT Time Frame: PRN Treating Specialty: [facility] Renewal Date: 04/13/2022 Entered Treatment: 06/05/2019 05:17 PM Anticipated Discharge: None /justine/ PEDRO LEAVITT MD STAFF PSYCHIATRIST Signed: 04/13/2021 15:53 Apr 13, 2021 02:44 PM PSYCHIATRY NOTE: PEDRO LEAVITT LOCAL TITLE: PSYCHIATRY NOTE STANDARD TITLE: PSYCHIATRY NOTE DATE OF NOTE: APR 13, 2021@14:44 ENTRY DATE: APR 13, 2021@14:44:52 AUTHOR: PEDRO LEAVITT EXP COSIGNER: URGENCY: STATUS: COMPLETED PSYCHIATRY NOTE Has ADDENDA 30 minutes for encounter, including chart review , interview, charting chart reviewed Pt stable, with modest improvement in depression and PTSD symptoms with Cymbalta, but no added benefit from the Remeron. In particular, irritability and insomnia persist even after addition of the Remeron. Some nightmares. Affect brightens appropriately. Pt denies SI and violent ideation. Well organize d thoughts. No h/o psychotic sx's. No PI or delusi ons presented. Speech normal/fluent. Cognitive exam grossly intact. Barbosa s interests. After discussion we decided t o taper off the Remeron because it had not added benefit and further dose increase unli raine to add further benefit. 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 Depression ([facility] [id number]) 2. Co-management 3. Tear of left rotator cuff 4. Posttraumatic stress disorder 5. Type 2 diabetes mellitus in obese 6. Mixed hyperlipidemia 7. Restless legs 8. Insomnia 9. Chronic pain 10. Herniated Disc * 11. Sleep apnea (SNOMED CT 87691269) 12. Gastroesophageal Reflux Disorder 13. Coronary artery disease (SNOMED CT 72174685) 14. Glaucoma 15. Osteoarthritis (SNOMED CT 019610330) 16. Essential hypertension (SNOMED CT 36436006) 17. Hypercholesterolemia (SNOMED CT 74874798) 18. Obesity Active Outpatient Medications (including Supplie s): Active Outpatient Medications Status 1) ATORVASTATIN CALCIUM 80MG TAB TAKE ONE TABLET BY ACTIVE MOUTH ONCE DAILY FOR CHOLESTEROL 2) BACLOFEN 10MG TAB TAKE ONE TABLET BY MOUTH ON CE DAILY ACTIVE FOR MUSCLE RIGIDITY 3) BETAMETHASONE DIPROPIONATE 0.05% CREAM APPLY A THIN ACTIVE LAYER TOPICALLY TWICE DAILY FOR ITCHING/RASH 4) BIMATOPROST 0.01% OPH SOLN INSTILL 1 DROP INT O EACH ACTIVE EYE AT BEDTIME TO REDUCE PRESSURE IN THE EYE 5) BRIMONIDINE 0.2%/TIMOLOL 0.5% OPH SOLN INSTIL L 1 DROP ACTIVE INTO THE LEFT EYE TWICE DAILY 6) CYCLOSPORINE 0.05% (PF) OPH EMUL 0.4ML INSTIL L 1 DROP ACTIVE INTO EACH EYE TWICE DAILY 7) DULOXETINE HCL 30MG EC CAP TAKE THREE CAPSULE S BY ACTIVE MOUTH ONCE DAILY FOR MOOD 8) INSULIN NPH HUMAN 100 U/ML INJ NOVOLIN N INJE CT 25 ACTIVE UNITS SUBCUTANEOUSLY EVERY DAY AND INJECT 45 UN ITS AT BEDTIME FOR DIABETES PRESCRIBER : DR. HARSHA LEE 9) INSULIN SYRINGE 1ML 31G 8MM USE 1 SYRINGE TWI CE DAILY ACTIVE FOR INSULIN INJECTIONS 10) INSULIN,ASPART,HUMAN 100 UNIT/ML INJ INJECT 10 UNITS ACTIVE SUBCUTANEOUSLY EVERY MORNING 30 MINUTES BEFORE BREAKFAST NEEDED AND INJECT 15 UNITS EVERY EVENING 11) METOPROLOL TARTRATE 50MG TAB TAKE 1 TABLET(S ) BY ACTIVE MOUTH TWICE DAILY 12) MIRTAZAPINE 30MG TAB TAKE ONE TABLET BY MOUT H AT ACTIVE (S) BEDTIME FOR DEPRESSION/MOOD 13) OMEPRAZOLE 20MG CAP,EC TAKE TWO CAPSULES BY MOUTH ACTIVE (S) EVERY MORNING 30 MINUTES BEFORE BREAKFAST 14) TRIAMCINOLONE ACETONIDE 0.1% CREAM APPLY A T HIN LAYER ACTIVE TOPICALLY ONCE DAILY NEEDED Active Non-VA Medications Status 1) Non-VA AMLODIPINE BESYLATE 10MG TAB 10MG BY M OUTH ACTIVE EVERY DAY 2) Non-VA ASPIRIN 81MG EC TAB 81MG BY MOUTH ACTI VE 3) Non-VA BETAMETHASONE DIPROPIONATE 0.05% CREAM SMALL ACTIVE AMOUNT TOPICALLY TWICE DAILY 4) Non-VA COAL TAR 7.5% TOP EMULSION SMALL AMOUN T ACTIVE TOPICALLY TWICE DAILY 5) Non-VA FENOFIBRATE TAB 54MG BY MOUTH DAILY AC TIVE 6) Non-VA FUROSEMIDE 40MG TAB 40MG BY MOUTH MARISABEL Y ACTIVE 7) Non-VA LOSARTAN POTASSIUM 100MG TAB 100MG BY MOUTH ACTIVE DAILY 8) Non-VA LOSARTAN POTASSIUM 50MG TAB 50MG BY MO UTH ACTIVE 9) Non-VA OXYCODONE HCL 5MG/APAP 325MG TAB 1 TAB LET BY ACTIVE MOUTH EVERY 4 TO 6 HOURS NEEDED 10) Non-VA ROPINIROLE HCL 3MG TAB 3MG BY MOUTH A CTIVE 11) Non-VA TIMOLOL MALEATE 0.5% OPH SOLN 1 DROP DAILY ACTIVE 12) Non-VA VITAMIN E 90MG (200 UNIT) CAP 200UNT BY MOUTH ACTIVE EVERY DAY 26 Total Medications pcp -- [facility] [place] PAST PSYCH MED HX: prozac -- not help ambien -- has not taken for awhile amitriptyline -- has not take for awhile for didier n denies other psych meds hx zoloft -- not help effexor hydroxyzine -- not help sleep trazodone remeron -- did not add benefit IMP: dsm-5 PTSD -- pt reports numerous traumatic incidents in -- noncombat related; 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 The patient also understands to call 911 or to go to ER in the ev ent of an emergency. Continue psychotherapy w Dr Montez Drake also offered pt CBT for insomnia -- pt decline d After discussion, we decided to continue cymabal ta 90 mg daily --which has provided partial benefit for depression and perh aps for PTSD symptoms. However, the Remeron did not add benefit as an a ugmenting agent over the improvement the patient had found the Cy mbalta alone, thus we decided to taper off Remeron. Tapering schedule written out for p regina. We decided to give trial of melatonin 3 mg night ly prn insomnia. Side effect profile including risk of next-day sedat ion and falling reviewed with patient. I reviewed the medication in structions/plan, side effect profile, and treatment expectations with the patient. He discus sed this with me and demonstrated good understanding. consider wellbutrin, trintellix, vortioxetine if insuff reponse to cymbalta with melatonin for sleep. Alternatively consider augmenting Cymbalta with BuSpar. However for now we will taper the R emeron as indicated above and add melatonin for sleep as indicated above we again discussed options including prazosin or trazodone for insomnia/nightmares -- pt does not want trazodone -- did not help in past, and he does not want prazosin due to s/e profile Because pt is prescribed narcotic for pain by pc p (pt is reliable with the narcotic and denies any overuse), as a precautio n I educated pt re naloxone rescue nasal spr ay -- renewed 01/2020 -- pt still has this -- pt will share instructions w his The patient was educated about the rationale and plan for the psychiatric medications. Medication instructions were review ed with the patient. Alternatives to treatment were discussed with th e patient. The side effect profile of the psychiatric medicatio ns was reviewed with the patient. This also included discussion of potential drug interactions associated with psychiatric medication. The patient discuss ed/verbalized back the understanding of the medication, side effects, a nd the plan/instructions, and the patient asked good questions. The patient de monstrated reasonable understanding of the medicat ion side effects and the above-mentioned issues. The benefits of psychiatric medi cations outweigh risks for this patient. The patient consents to medication treatment. I asked the patient to call me or to come to ope n access if the patient does not like the effect of psychiatric medicati on or if has side effects with psychiatric medication. pt denies problem with alcohol and does not appe ar to have a problem -- but as a precaution, I educated pt re potential impa ct of alcohol on mental and physical health -- the pt is aware RODRIGUE grp is av ailable in clinic if needed I previously educated the patient about the importance of using cpap for sleep apnea. Pt states uses cpap Patient denies recent gambling -- recommended [place] rtc 2 mo for med f/u or sooner thr open access p rn by calling Medication Reconciliation: Outpatient: Has the patient been taking medications as docu mented in the EMLR? YES: The patient has been taking medications as documented in the EMLR. Essential Medication List for Review used to co mplete this medication reconciliation. INCLUDED IN THIS LIST: Alphabetical list of act ashley outpatient prescriptions dispensed from this [facility] (local) an d dispensed from another [place] or [facility] facility (remote) as well as inpatien t orders (local, pending and active), local clinic medications, locally documented non-VA medications, and local prescriptions that have or been discontinued in the past 90 days. - All changes in medications, including all non -VA/Herbal/OTC medications were entered into CPRS. - If there were any medications the patient diana uld no longer take, they were discontinued. - The patient/caregiver was instructed to updat e this list, discard old lists, and take this list to the next appointme nt, whether with a VA or non-VA provider. /justine/ PEDRO LEAVITT MD STAFF PSYCHIATRIST Signed: 04/13/2021 15:42 Receipt Acknowledged By: 04/13/2021 15:48 /justine/ Magi Eugene [employer]ANCED MUSIC ARRANGER 04/29/2021 ADDENDUM STATUS: COMPLETED The patient left secure message saying t hat the melatonin caused dizziness and headaches, thus he discontin ued it, therefore I will take the order out of CPRS. /justine/ PEDRO LEAVITT MD STAFF PSYCHIATRIST Signed: 04/29/2021 12:30
--- OUTSIDE RECORDS SUMMARY | 2022-02-03 00:34 | XMS_ITS | Encounter Summary ---
:1950 Author Organization Department [facility] rs Address [address] [place] [id number] Support Name Relationship Address Phone LORI HOPKINS Unavailable [address] [place] [address] [place] [address] LORI HOPKINS Unavailable [address] [facility] [place] [address] Insurance Providers: All historical and current Section [...] Number Silva JARRED PREFERRED STAND May 08 [id number] [phone] PROVIDER SHIVA [phone] RIAN MILLAN FEDERAL ORGANIZAT SELF ION (PPO) BCBS [place] PREFERRED STAND May 08 [id number] [phone] JAMES CE PATIENT FEP PROVIDER SHIVA [phone] RIAN MILLAN ORGANGERMANAT INDIV ION (PPO) IDUAL BCBS OF PREFERRED STAND May 08 [id number] [phone] JAMES CE PATIENT MASS PROVIDER SHIVA [phone] 3 RIAN MILLAN FEDERAL ORGANIZAT SELF ION (PPO) BCBS OF PREFERRED STAND May 08 [id number] [phone] JAMES CE PATIENT MASS FEP PROVIDER SHIVA [phone] RIAN MILLAN ORGANIZAT SELF ION (PPO) BCBS OF DENTAL STAND May 08, DENTAL [id number] [phone] SANDEEP, PATIENT MASS FEP INSURANCE SHIVA [phone] RIAN DENTAL BCBS OF ID MEDICARE FEP Dec 06 [id number] SANDEEP PATIENT FEP SECONDARY STAND [phone] RIAN MILLAN (NO B SHIVA EXC) MEDSE C CAREMARK PRESCRIPT FEP Dec 06, [id number] SANDEEP PATIENT FEP ION ONLY 2014 [phone] RIAN MILLAN CARELIONEL PRESCRIPT May 08, [id number] [phone] EDUARDO ENCEstella PATIENT FEP ION 2011 0 [phone] 1 RIAN MILLAN PRESCRIPT CAREM May 08, [id number] [phone] EDUARDO ENCEstella, PATIENT FEP BCBS ION ARK 2011 0 [phone] 1 RIAN FEPRX PLAN CAREMARK PRESCRIPT May 08, [id number] [phone] ENCE PATIENT FEPRX PLAN ION 2011 0 [phone] RIAN MILLAN-F PRESCRIPT FEPRX May 08, [id number] [phone] LA WRENCE PATIENT EP BCBS ION /PT D 2010 0 [phone] 1 RIAN MILLAN [facility] May 18, [id number] [phone] JAMES CE, PATIENT [facility] 2003 32 [phone] RIAN CE ORGANIZ EXPRESS PRESCRIPT CONNE May 18, [id number] [phone] JAMES CE, PATIENT SCRIPTS ION CTICA 2003 [id number] RIAN ([id number]) RE MEDICARE MEDICARE PART Oct 06, PART B [id number] JAMES CE, PATIENT (WNR) (M) B 2012 UP33 2 JOSEPH MEDICARE MEDICARE PART Oct 06, PART A [id number] [phone] JAMES CE, PATIENT (WNR) (M) A 2013 UP33 00 [place] MEDICARE MEDICARE PART Oct 06, PART B [id number] [phone] JAMES CE, PATIENT (WNR) (M) B 2013 UP33 00 [place] MEDICARE MEDICARE PART Oct 06, PART A [id number] Lisa HOPKINS (WNR) (M) A 2013 [id number] [place] MEDICARE MEDICARE PART Oct 06, PART A [id number] [phone] JAMES CE, PATIENT (WNR) (M) A 2013 UP33 7 [place] MEDICARE MEDICARE PART Oct 06, PART B [id number] [phone] JAMES CE, PATIENT (WNR) (M) B 2012 UP33 7 RIAN MEDICARE MEDICARE PART Oct 06, PART B [id number] Lisa HOPKINS ATIENT (WNR) (M) B 2012 UP33 [phone] RIAN MEDICARE MEDICARE PART Oct 06, PART A [id number] JAMES CE, PATIENT (WNR) (M) A 2012 UP33 2 RIAN MEDICARE MEDICARE PART Dec 06, PART D [id number] Lisa HOPKINS ATIENT PART D (M) D 2018 UP33 [phone] RIAN (WNR) MEDICARE MEDICARE PART Oct 06, PART D [id number] [phone] JAMES CE, PATIENT PART D (M) D 2012 UP33 7 RIAN (WNR) MEDICARE PRESCRIPT PART Oct 06, PART D [id number] LAWRE NCE, PATIENT PART D ION D 2012 [id number] RIAN (WNR) MEDICARE PRESCRIPT PART Oct 06, PART D [id number] [phone] LAWRE NCE, PATIENT PART D ION D 2012 UP33 0 RIAN (WNR) Selected Encounter This section includes the information on record at ID for the Encounter. Date/Time Encounter Type Encounter Description Reason Provider Source Mar 25, 2021 12:26 Outpatient Encounter PRIMARY CARE/MEDICINE PM IHE Encounter Template Text not used by ID Plan of Treatment: Future Appointments (+ 6 months) and Future Tests (+/- 45 days) The Plan of Treatment section includes future care activities for the patient from all ID treatmentfacilities. This section includes future appointments and future orders which are active, pending orscheduled.Future Appointments This section includes appointments that were scheduled to occur 6 months from the date of the Encounter, up to a maximum of 20 appointments. The data comes from all ID treatment facilities. Appointment Date/Time Appointment Type Appointment Facili ty Name Mar 31, 2021 02:00 PM [facility] Apr 09, 2021 01:00 [facility] Apr 13, 2021 02:00 PM [facility] Apr 13, 2021 02:30 PM AMBULATORY - PS[place]CHIATRY [place] Apr 21, 2021 11:00 AM AMBULATORY - MEDICINE [place] Apr 22, 2021 01:00 PM AMBULATORY - REHAB [facility]IC[facility] May 03, 2021 01:45 PM [facility] May 05, 2021 03:00 PM [facility] [place] [facility] Jun 01, 2021 02:00 PM AMBULATORY [facility] Jun 02, 2021 12:30 PM AMBULATORY [facility] Jun 04, 2021 12:30 PM AMBULATORY [facility] Jun 08, 2021 02:00 [facility] [place] [facility] Jun 16, 2021 02:00 PM AMBULATORY [facility] Jun 18, 2021 01:00 PM [facility] Jun 22, 2021 02:00 PM [facility] Jun 23, 2021 01:00 PM [facility] [place] [facility] Jul 07, 2021 11:00 AM AMBULATORY [facility] Jul 13, 2021 02:00 PM [facility] Jul 20, 2021 02:30 PM [facility] Aug 05, 2021 02:00 PM [facility] Lab Results: +/- 30 days of the encounter This section includes the Chemistry and Hematology Lab Results on record with ID for the patient. Radiology Reports and Pathology Reports are provided separately, in subsequent sections.Lab Results This section contains the Chemistry/Hematology Results that were resulted 30 days before or 30 daysafter the date of the Encounter. Date/Time Source Result Type Result - Unit Interpretation Reference Range Comment Apr 20, 2021 [place] VITAMIN D (25-OH) Specimen Type : SERUM 11:34 AM Comment: GLUCOS E Verified by repeat analysis. CALLED DR NG 04/20/21@0422 [facility] Read-back was completed. Ordering Provid er: ROMULO CHONG Report Released Date/Time: Apr 07, 2021 01:54 PM Reporting Lab: [address] [address] Performing Lab: [address] [address] VITAMIN D (25-OH) <13 L 20-50 Apr 20, 2021 [place] BASIC METABOLIC Specimen Type: SERUM 11:34 AM PANEL (fasting) Comment: GLUCOS E Verified by repeat analysis. CALLED DR NG 04/20/21@1432 [facility] Read-back was completed. Ordering Provid er: ROMULO CHONG Report Released Date/Time: Apr 07, 2021 01:54 PM Reporting Lab: [facility] [address] [facility] [address] Performing Lab: [facility] [address] [facility] [address] UREA NITROGEN 25 7-25 GLUCOSE 48 LL 65-100 SODIUM 141 135-145 POTASSIUM 4.3 3.5-5.0 CHLORIDE 105 100-110 CO2 29 20-30 CREATININE, Serum 1.82 H 0.50-1.40 eGFR (IDMS) 37 L >60 Apr 20, 2021 [place] HEMOGLOBIN A1C PANEL Specimen T ype: BLOOD [...] Apr 07, 2021 01:54 PM Reporting Lab: [facility] [address] [facility] [address] Performing Lab: [facility] [address] [facility] [address] HEMOGLOBIN A1C 9.2 H 4.0-5.6 Apr 20, 2021 [place] LIPID PANEL FASTING Specimen Ty pe: SERUM 11:34 AM Comment: GLUCOS E Verified by repeat analysis. CALLED DR NG 04/20/21@1432 [facility] Read-back was completed. Ordering Provid er: ROMULO CHONG Report Released Date/Time: Apr 07, 2021 01:54 PM Reporting Lab: [facility] [address] [facility] [address] Performing Lab: [facility] [address] [facility] [address] CHOLESTEROL 181 0-199 TRIGLYCERIDE 193 H 0-150 LDL calculated 95 0-129 CHOL/HDL 3.9 HDL CHOLESTEROL 47 40-60 Apr 20, 2021 11:34 [place] LIVER FUNCTION Specimen Typ e: SERUM AM Comment: GLUCOS E Verified by repeat analysis. CALLED DR NG 04/20/21@1432 [facility] Read-back was completed. Ordering Provid er: ROMULO CHONG Report Released Date/Time: Apr 07, 2021 01:54 PM Reporting Lab: [facility] [address] [facility] [address] Performing Lab: [facility] [address] [facility] [address] PROTEIN,TOTAL 6.7 6.0-8.3 ALBUMIN 3.3 L 3.5-5.0 ALKALINE PHOSPHATASE 60 40-150 AST 14 5-34 ALT 15 0-55 BILIRUBIN, TOTAL 0.4 0.2-1.2 Apr 20, 2021 11:34 AM [place] TSH Specimen Type: SERUM Comment: GLUCOS E Verified by repeat analysis. CALLED DR NG 04/20/21@1432 [facility] Read-back was completed. Ordering Provid er: ROMULO CHONG Report Released Date/Time: Apr 07, 2021 01:54 PM Reporting Lab: [facility] [address] [facility] [address] Performing Lab: [facility] [address] [facility] [address] TSH 3.57 0.35-5.00 Apr 20, 2021 [place] MICROALBUMIN Specimen Type: URINE 11:34 AM CREATININE RATIO PANEL No commen t entered. Ordering Provid er: ROMULO CHONG Report Released Date/Time: Apr 07, 2021 01:54 PM Reporting Lab: [facility] [address] [address] Performing Lab: [address] [address] MICROALBUMIN/CREATININE RATIO canc 0-29.9 MICROALBUMIN,QUANTITATIVE > 300.0 RR U NAVAIL CREATININE URINE 173.58 Apr 20, 2021 [place] CBC AND DIFF Specimen Type: BLOOD 11:34 AM (AUTO) No comment enter ed. Ordering Provid er: ROMULO CHONG Report Released Date/Time: Apr 07, 2021 01:54 PM Reporting Lab: [address] [address] Performing Lab: [address] [address] WBC 10.37 4.50-11.00 RBC 4.83 4.23-5.66 HGB 14.2 12.8-17 HCT 44.0 39.2-50.4 MCV 91.1 82-99 MCHC 32.3 30.8-35.1 PLT 286 140-360 RDW-CV 13.0 12.0-16.0 Hutchinson, Abs 1.04 0.30-1.10 MCH 29.4 26.2-32.6 Neut % 42.3 Lymph % 42.3 Hutchinson % 10.0 Eos % 4.5 Baso % 0.7 Neut, Abs 4.38 2.20-7.60 Lymph, Abs 4.39 H 1.00-3.20 Eos, Abs 0.47 H 0.03-0.44 Baso, Abs 0.07 0.01-0.13 Immature Gran % 0.2 Immature Gran, Abs 0.02 0.00-0.06 Encounter Notes: All associated encounter notes This section contains the clinical notes associated to the Encounter. Date/Time Encounter Note(s) Provider Source Mar 25, 2021 12:26 PM MEDICATION MGT NOTE: MAGNUS SANDERSON [place] LOCAL TITLE: OUTPATIENT MEDICATION REQUEST STANDARD TITLE: MEDICATION MGT NOTE DATE OF NOTE: MAR 25, 2021@12:26 ENTRY DATE: MAR 25, 2021@12:26:40 AUTHOR: LEFER-QUICK,MAGNUS A EXP COSIGNER: URGENCY: STATUS: COMPLETED OUTPATIENT MEDICATION REQUEST Has ADDENDA * Medication Request Date of Request: Mar Please renew and mail. INSULIN,NPH (NOVOLIN NPH) INJ 100UNIT/ML INJECT 25 UNITS SUBCUTANEOUSLY EVERY DAY AND INJ ECT 45 UNITS AT BEDTIME FOR DIABETES PRESCRIBER : DR. LYNNETTE LEE Quantity: 7 Refills: 3 /justine/ Magnus Sanderson RN Registered Nurse Signed: 03/25/2021 12:26 Receipt Acknowledged By: 03/26/2021 00:02 /justine/ ROMULO CHONG MD PHYSICIAN 03/26/2021 ADDENDUM STATUS: COMPLETED please obtain most recent non [facility] P[facility] and l abs. thx /justine/ ROMULO CHONG MD PHYSICIAN Signed: 03/26/2021 00:03 Receipt Acknowledged By: * AWAITING SIGNATURE * CORDELL MCWILLIAMS
--- OUTSIDE RECORDS SUMMARY | 2022-02-03 00:34 | XMS_ITS | Encounter Summary ---
:1950 Author Organization Department [facility] Address [address] [place] [address] Support Name Relationship Address Phone LORI HOPKINS Unavailable [address] [place] [address] [place] [address] LORI HOPKINS Unavailable [address] [place] [address] [place] [address] Insurance Providers: All historical and current Section [...] Number Silva JARRED PREFERRED STAND May 08 [id number] PROVIDER SHIVA 2010 [id number] RIAN MILLAN FEDERAL ORGANIZAT SELF ION (PP[place]) [place] PREF[place] May 08 [id number] [phone] JAMES CE PATIENT FEP PROVIDER SHIVA 2010 87 123 RIAN MILLAN ORGANGERMANAT INDIV ION (PPO) IDUAL BCBS OF PREFERRED STAND May 08 [id number] [phone] JAMES CE PATIENT MASS PROVIDER SHIVA 2010 87 3 RIAN MILLAN FEDERAL ORGANIZAT SELF ION (PPO) BCBS OF PREFERRED STAND May 08 [id number] [phone] JAMES CE PATIENT MASS FEP PROVIDER SHIVA 2010 87 6 RIAN MILLAN ORGANIZAT SELF ION (PPO) BCBS OF DENTAL STAND May 08, DENTAL [id number] [phone] SANDEEP, PATIENT MASS FEP INSURANCE SHIVA 2010 87 6 RIAN DENTAL [place] OF [place] MEDICARE FEP Dec 06 [id number] SANDEEP PATIENT FEP SECONDARY STAND 2019 [phone] RIAN MILLAN (NO B SHIVA EXC) MEDSE C CAREMARK PRESCRIPT FEP Dec 06, [id number] SANDEEP PATIENT FEP ION ONLY 2014 0 87 [phone] RIAN MILLAN PRESCRIPT May 08, [id number] [phone] EDUARDO ENCEstella PATIENT FEP ION 2011 0 87 1 RIAN MILLAN PRESCRIPT CAREM May 08, [id number] [phone] EDUARDO ENCEstella, PATIENT FEP BCBS ION ARK 2011 0 87 1 RIAN FEPRX PLAN CAREMARK PRESCRIPT May 08, [id number] [phone] LAWR ENCE PATIENT FEPRX PLAN ION 2011 0 87 331 RIAN MILLAN-F PRESCRIPT FEPRX May 08, [id number] [phone] LA WRENCE PATIENT EP BCBS ION /PT D 2010 0 87 1 RIAN MILLAN [facility] May 18, [id number] [phone] JAMES CE, PATIENT RE JONATAN [place] 2003 32 7 RIAN CE ORGANIZ EXPRESS PRESCRIPT CONNE May 18, [id number] [phone] JAMES CE, PATIENT SCRIPTS ION CTICA 2003 [id number] RIAN ([id number]) RE MEDICARE MEDICARE PART Oct 06, PART B [id number] JAMES CE, PATIENT (WNR) (M) B 2012 UP33 2 [place] MEDICARE MEDICARE PART Oct 06, PART A [id number] JAMES CE, PATIENT (WNR) (M) A 2012 UP33 00 [place] MEDICARE MEDICARE PART Oct 06, PART B [id number] JAMES CE, PATIENT (WNR) (M) B 2013 UP33 00 [place] MEDICARE MEDICARE PART Oct 06, PART A [id number] Lisa HOPKINS (WNR) (M) A 2013 UP33 [id number] [place] MEDICARE MEDICARE PART Oct 06, PART A [id number] JAMES CE, PATIENT (WNR) (M) A 2013 UP33 7 [place] MEDICARE MEDICARE PART Oct 06, PART B [id number] JAMES CE, PATIENT (WNR) (M) B 2012 UP33 7 RIAN MEDICARE MEDICARE PART Oct 06, PART B [id number] 800 SANDEEP Lisa ATIENT (WNR) (M) B 2012 UP33 [id number] RIAN MEDICARE MEDICARE PART Oct 06, PART A [id number] JAMES CE, PATIENT (WNR) (M) A 2012 UP33 2 RIAN MEDICARE MEDICARE PART Dec 06, PART D [id number] SANDEEPLisa ATIENT PART D (M) D 2018 UP33 [phone] RIAN (WNR) MEDICARE MEDICARE PART Oct 06, PART D [id number] JAMES CE, PATIENT PART D (M) D 2012 UP33 7 RIAN (WNR) MEDICARE PRESCRIPT PART Oct 06, PART D [id number] LAWRE NCE, PATIENT PART D ION D 2012 32A 0 RIAN (WNR) MEDICARE PRESCRIPT PART Oct 06, PART D [id number] LAWRE NCE, PATIENT PART D ION D 2012 UP33 0 RIAN (WNR) Selected Encounter This section includes the information on record at [place] for the Encounter. Date/Time Encounter Type Encounter Reason Provider Source Description Mar 31, 2021 HC PRO PHONE TELEPHONE/MEDICIN ICD-10-CM G47.33 KARISSAVIVIAN Lomax LOU 02:00 PM CALL 5-10 MIN E Obstructive sleep apnea (adult) (pediatric) with Provider Comments: Obstructive Sleep Apnea (Adult) (Pediatric) IHE Encounter Template Text not used by AL Assessments - Encounter Diagnoses This section includes the primary and secondary diagnoses documented for the Encounter. Date/Time Primary/Secondary Diagnosis Name Provider Source Diagnosis Mar 31, 2021 PRIMARY Obstructive sleep KARISSA,MITCHELL [place] [facility] 02:00 PM apnea (adult) [place] [facility] (pediatric) Plan of Treatment: Future Appointments (+ 6 months) and Future Tests (+/- 45 days) The Plan of Treatment section includes future care activities for the patient from all [place] treatmentfacilities. This section includes future appointments and future orders which are active, pending orscheduled.Future Appointments This section includes appointments that were scheduled to occur 6 months from the date of the Encounter, up to a maximum of 20 appointments. The data comes from all [place] treatment facilities. Appointment Date/Time Appointment Type Appointment Facili ty Name Apr 09, 2021 01:00 PM AMBULATORY - MEDICINE [place] [facility] [place] [facility] Apr 13, 2021 02:00 PM AMBULATORY - PSYCHIATRY [place] [facility] [place] [facility] Apr 13, 2021 02:30 PM [facility] Apr 21, 2021 11:00 AM AMBULATORY [facility] Apr 22, 2021 01:00 PM AMBULATORY - REHAB [facility] May 03, 2021 01:45 PM AMBULATORY - MEDICINE [place] [facility] [place] [facility] May 05, 2021 03:00 PM [facility] [place] [facility] Jun 01, 2021 02:00 PM [facility] Jun 02, 2021 12:30 PM [facility] Jun 04, 2021 12:30 PM [facility] Jun 08, 2021 02:00 PM [facility] CN[facility]L [facility] [place] [facility] Jun 16, 2021 02:00 PM [facility] Jun 18, 2021 01:00 PM AMBULATORY - MEDICINE [place] [facility] [place] [place] [facility] Jun 22, 2021 02:00 PM [facility] Jun 23, 2021 01:00 PM [facility] [place] [facility] Jul 07, 2021 11:[address] [facility] Jul 13, 2021 02:00 PM [facility] Jul 20, 2021 02:30 PM [facility] Aug 05, 2021 02:00 PM [facility] Aug 16, 2021 02:00 PM [facility] Lab Results: +/- 30 days of the encounter This section includes the Chemistry and Hematology Lab Results on record with AL for the patient. Radiology Reports and Pathology Reports are provided separately, in subsequent sections.Lab Results This section contains the Chemistry/Hematology Results that were resulted 30 days before or 30 daysafter the date of the Encounter. Date/Time Source Result Type Result - Unit Interpretation Reference Range Comment Apr 20, 2021 [place] VITAMIN D (25-OH) Specimen Type : SERUM 11:34 AM Comment: GLUCOS E Verified by repeat analysis. CALLED DR NG 04/20/21@1432 [facility] Read-back was completed. Ordering Provid er: ROMULO CHONG Report Released Date/Time: Apr 07, 2021 01:54 PM Reporting Lab: [address] [address] Performing Lab: [address] [address] VITAMIN D (25-OH) <13 L 20-50 Apr 20, 2021 [place] BASIC METABOLIC Specimen Type: SERUM 11:34 AM PANEL (fasting) Comment: GLUCOS E Verified by repeat analysis. CALLED DR NG 04/20/21@1432 [facility] Read-back was completed. Ordering Provid er: ROMULO CHONG Report Released Date/Time: Apr 07, 2021 01:54 PM Reporting Lab: [address] [address] Performing Lab: [address] [address] UREA NITROGEN 25 7-25 GLUCOSE 48 LL 65-100 SODIUM 141 135-145 POTASSIUM 4.3 3.5-5.0 CHLORIDE 105 100-110 CO2 29 20-30 CREATININE, Serum 1.82 H 0.50-1.40 eGFR (IDMS) 37 L >60 Apr 20, 2021 [place] LIPID PANEL FASTING Specimen Ty pe: SERUM 11:34 AM Comment: GLUCOS E Verified by repeat analysis. CALLED DR NG 04/20/21@1432 [facility] Read-back was completed. Ordering Provid er: ROMULO CHONG Report Released Date/Time: Apr 07, 2021 01:54 PM Reporting Lab: [address] [address] Performing Lab: [address] [address] CHOLESTEROL 181 0-199 TRIGLYCERIDE 193 H 0-150 LDL calculated 95 0-129 CHOL/HDL 3.9 HDL CHOLESTEROL 47 40-60 Apr 20, 2021 [place] HEMOGLOBIN A1C PANEL Specimen T ype: BLOOD [...] Apr 07, 2021 01:54 PM Reporting Lab: [address] [address] Performing Lab: [address] [address] HEMOGLOBIN A1C 9.2 H 4.0-5.6 Apr 20, 2021 11:34 [place] LIVER FUNCTION Specimen Typ e: SERUM AM Comment: GLUCOS E Verified by repeat analysis. CALLED DR NG 04/20/21@1432 [facility] Read-back was completed. Ordering Provid er: ROMULO CHONG Report Released Date/Time: Apr 07, 2021 01:54 PM Reporting Lab: [facility] [address] [facility] [address] Performing Lab: [address] [address] PROTEIN,TOTAL 6.7 6.0-8.3 ALBUMIN 3.3 L 3.5-5.0 ALKALINE PHOSPHATASE 60 40-150 AST 14 5-34 ALT 15 0-55 BILIRUBIN, TOTAL 0.4 0.2-1.2 Apr 20, 2021 11:34 AM [place] TSH Specimen Type: SERUM Comment: GLUCOS E Verified by repeat analysis. CALLED DR NG 04/20/21@1432 [facility] Read-back was completed. Ordering Provid er: ROMULO CHONG Report Released Date/Time: Apr 07, 2021 01:54 PM Reporting Lab: [address] [address] Performing Lab: [place] [address] [facility] [address] TSH 3.57 0.35-5.00 Apr 20, 2021 [place] MICROALBUMIN Specimen Type: URINE 11:34 AM CREATININE RATIO PANEL No commen t entered. Ordering Provid er: ROMULO CHONG Report Released Date/Time: Apr 07, 2021 01:54 PM Reporting Lab: [facility] [address] [address] Performing Lab: [facility] [address] [address] MICROALBUMIN/CREATININE RATIO canc 0-29.9 MICROALBUMIN,QUANTITATIVE > 300.0 RR U NAVAIL CREATININE URINE 173.58 Apr 20, 2021 [place] CBC AND DIFF Specimen Type: BLOOD 11:34 AM (AUTO) No comment enter ed. Ordering Provid er: ROMULO CHONG Report Released Date/Time: Apr 07, 2021 01:54 PM Reporting Lab: [facility] [address] [address] Performing Lab: [facility] [address] [address] WBC 10.37 4.50-11.00 RBC 4.83 4.23-5.66 HGB 14.2 12.8-17 HCT 44.0 39.2-50.4 MCV 91.1 82-99 MCHC 32.3 30.8-35.1 PLT 286 140-360 RDW-CV 13.0 12.0-16.0 Haakon, Abs 1.04 0.30-1.10 MCH 29.4 26.2-32.6 Neut % 42.3 Lymph % 42.3 Haakon % 10.0 Eos % 4.5 Baso % 0.7 Neut, Abs 4.38 2.20-7.60 Lymph, Abs 4.39 H 1.00-3.20 Eos, Abs 0.47 H 0.03-0.44 Baso, Abs 0.07 0.01-0.13 Immature Gran % 0.2 Immature Gran, Abs 0.02 0.00-0.06 Encounter Notes: All associated encounter notes This section contains the clinical notes associated to the Encounter. Date/Time Encounter Note(s) Provider Source Mar 31, 2021 03:28 PM SLEEP MEDICINE CONSULT: MITCHELL HANCOCK CN[facility] W[facility]N LOCAL TITLE: SLEEP STUDY/CONSULT REPORT [facility] STANDARD TITLE: SLEEP MEDICINE CONSULT DATE OF NOTE: MAR 31, 2021@15:28 ENTRY DATE: MAR 31, 2021@15:28:10 AUTHOR: MITCHELL HANCOCK EXP COSIGNER: URGENCY: STATUS: COMPLETED HOME TEST Provider recommended for dx sleep apnea G47.30 REPEAT STUDY, DID NOT TURN DEVICE ON DURING 1ST ATTEMPT Type of Education: Individual Teaching Methods used: 1:1 discussion Patient participated in question and answer jerry od: Yes Goals met: Yes Patient perceived barriers to learning: No barri ers Patient readiness to learn: receptive Education: visual demonstrat ion provided including reference material for study and phone number provided for after hours suppor t. Unit function checked: Yes C linical staff has ensured that products are safe and free from defects. Unit PM#- Patient came to the [facility] clinic for initial 30 mi nute instruction of their portable sleep test. Topics included the rationale for testing, the health risks associated with untreated sleep apnea and the av ailable treatment options. Set up of the equipment demo nstrated, possible problems and questions addressed. Equipment will be returned by mail. /justine/ CECILIA MOREL [employer] SUPERVISOR Signed: 03/31/2021 15:29
--- OUTSIDE RECORDS SUMMARY | 2022-02-03 00:34 | XMS_ITS | Encounter Summary ---
:1950 Author Organization Department [facility] rs Address [address] [place] [address] Support Name Relationship Address Phone LORI HOPKINS Unavailable [address] [place] [address] [place] [address] LORI HOPKINS Unavailable [address] [facility] [place] [address] Insurance Providers: All historical and current Section [...] Number Silva JARRED PREFERRED STAND May 08 [id number] PROVIDER SHIVA 2011 87 [id number] RAIN MILALN FEDERAL ORGANIZAT SELF ION (PPO) [place] PREFERRED STAND May 08 [id number] [phone] JAMES CE PATIENT FEP PROVIDER SHIVA 2010 87 123 RIAN MILLAN ORGANGERMANAT INDIV ION (PPO) IDUAL BCBS OF PREFERRED STAND May 08 [id number] [phone] JAMES CE PATIENT MASS PROVIDER SHIVA 2010 87 3 RIAN MILLAN FEDERAL ORGANIZAT SELF ION (PPO) BCBS OF PREFERRED STAND May 08 [id number] [phone] JAMES CE PATIENT MASS FEP PROVIDER SHIVA 2010 87 6 RIAN MILLAN ORGANIZAT SELF ION (PPO) BCBS OF DENTAL STAND May 08, DENTAL [id number] [phone] SANDEEP, PATIENT MASS FEP INSURANCE SHIVA 2010 87 6 RIAN DENTAL [place]BS OF [place] MEDICARE FEP Dec 06 [id number] 800 SANDEEP PATIENT FEP SECONDARY STAND 2019 87 [phone] RIAN MILLAN (NO B SHIVA EXC) MEDSE C CAREMARK PRESCRIPT FEP Dec 06, [id number] SANDEEP PATIENT FEP ION ONLY 2014 0 87 [phone] RIAN MILLAN [place] PRESCRIPT May 08, [id number] [phone] EDUARDO ENCEstella PATIENT FEP ION 2011 0 87 1 RIAN MILLAN PRESCRIPT CAREM May 08, [id number] [phone] EDUARDO ENCEstella, PATIENT FEP BCBS ION ARK 2011 0 87 1 RIAN FEPRX PLAN CAREMARK PRESCRIPT May 08, [id number] [phone] LAWR ENCE PATIENT FEPRX PLAN ION 2011 0 87 331 RIAN MILLAN-F PRESCRIPT FEPRX May 08, [id number] [phone] LA WRENCE PATIENT EP BCBS ION /PT D 2010 0 87 1 RIAN MILLAN [facility] May 18, [id number] [phone] JAMES CE, PATIENT [facility] 2003 32 7 RIAN CE ORGANIZ EXPRESS PRESCRIPT CONNE May 18, [id number] [phone] JAMES CE, PATIENT SCRIPTS ION CTICA 2003 [id number] 7 RIAN ([id number]) RE MEDICARE MEDICARE PART Oct 06, PART A [id number] 800 Lisa HOPKINS (WNR) (M) A 2012 UP33 [phone] JOSEPH MEDICARE MEDICARE PART Oct 06, PART B [id number] 800 Lisa HOPKINS (WNR) (M) B 2012 UP33 [id number] [place] MEDICARE MEDICARE PART Oct 06, PART A [id number] JAMES CE, PATIENT (WNR) (M) A 2013 UP33 00 [place] MEDICARE MEDICARE PART Oct 06, PART B [id number] [id number] JAMES CE, PATIENT (WNR) (M) B 2013 UP33 00 [place] MEDICARE MEDICARE PART Oct 06, PART A [id number] JAMES CE, PATIENT (WNR) (M) A 2013 UP33 2 [place] MEDICARE MEDICARE PART Oct 06, PART A [id number] JAMES CE, PATIENT (WNR) (M) A 2012 UP33 7 RIAN MEDICARE MEDICARE PART Oct 06, PART B [id number] JAMES CE, PATIENT (WNR) (M) B 2012 UP33 7 RIAN MEDICARE MEDICARE PART Oct 06, PART B [id number] JAMES CE, PATIENT (WNR) (M) B 2012 UP33 2 RIAN MEDICARE MEDICARE PART Dec 06, PART D [id number] Lisa HOPKINS ATIENT PART D (M) D 2018 UP33 [id number] RIAN (WNR) MEDICARE PRESCRIPT PART Oct 06, PART D [id number] LAWRE NCE, PATIENT PART D ION D 2012 32A 0 RIAN (WNR) MEDICARE PRESCRIPT PART Oct 06, PART D [id number] [phone] LAWRE NCE, PATIENT PART D ION D 2012 UP33 0 RIAN (WNR) MEDICARE MEDICARE PART Oct 06, PART D [id number] JAMES CE, PATIENT PART D (M) D 2012 UP33 7 RIAN (WNR) Selected Encounter This section includes the information on record at [place] for the Encounter. Date/Time Encounter Type Encounter Description Reason Provider Source Apr 12, 2021 02:48 Outpatient Encounter PRIMARY CARE/MEDICINE PM IHE Encounter Template Text not used by [place] Plan of Treatment: Future Appointments (+ 6 months) and Future Tests (+/- 45 days) The Plan of Treatment section includes future care activities for the patient from all [place] treatmentfacilities. This section includes future appointments and future orders which are active, pending orscheduled.Future Appointments This section includes appointments that were scheduled to occur 6 months from the date of the Encounter, up to a maximum of 20 appointments. The data comes from all [place] treatment facilities. Appointment Date/Time Appointment Type Appointment Facili ty Name Apr 13, 2021 02:00 PM AMBULATORY - PSYCHIATRY [facility] SHANIQUA [facility] Apr 13, 2021 02:30 PM AMBULATORY - PSYCHIATRY [place] Apr 21, 2021 11:00 AM AMBULATORY - MEDICINE [place] Apr 22, 2021 01:00 PM AMBULATORY - REHAB MEDICINE [facility] May 03, 2021 01:45 PM AMBULATORY MEDICINE [facility] May 05, 2021 03:00 PM AMBULATORY - REHAB MEDICINE [facility] Cosmo [facility] Jun 01, 2021 02:00 PM AMBULATORY [facility] Jun 02, 2021 12:30 PM AMBULATORY [facility] Jun 04, 2021 12:30 PM AMBULATORY [facility] Jun 08, 2021 02:00 PM [facility] Jun 16, 2021 02:00 PM AMBULATORY [facility] Jun 18, 2021 01:00 PM AMBULATORY MEDICINE [facility] WSNURY [facility] Jun 22, 2021 02:00 PM AMBULATORY [facility] Jun 23, 2021 01:00 PM [facility] - [facility] Cosmo [facility] Jul 07, 2021 11:00 AM AMBULATORY [facility] Jul 13, 2021 02:00 PM [facility] Jul 20, 2021 02:30 PM [facility] Aug 05, 2021 02:00 PM [facility] Aug 16, 2021 02:00 PM [facility] Aug 26, 2021 02:00 PM [facility] Lab Results: +/- 30 days of the encounter This section includes the Chemistry and Hematology Lab Results on record with [place] for the patient. Radiology Reports and Pathology Reports are provided separately, in subsequent sections.Lab Results This section contains the Chemistry/Hematology Results that were resulted 30 days before or 30 daysafter the date of the Encounter. Date/Time Source Result Type Result - Unit Interpretation Reference Range Comment Apr 20, 2021 [place] VITAMIN D (25-OH) Specimen Type : SERUM 11:34 AM Comment: GLUCOS E Verified by repeat analysis. CALLED DR NG 04/20/21@0719 [facility] Read-back was completed. Ordering Provid er: ROMULO CHONG Report Released Date/Time: Apr 07, 2021 01:54 PM Reporting Lab: [facility] [address] [facility] [address] Performing Lab: [address] [address] VITAMIN D (25-OH) <13 L 20-50 Apr 20, 2021 [place] HEMOGLOBIN A1C PANEL Specimen T ype: BLOOD [...] HbAC, HbAD, HbAE, AbA2 Ordering Provid er: ROMLUO CHONG Report Released Date/Time: Apr 07, 2021 01:54 PM Reporting Lab: [facility] [address] [facility] [address] Performing Lab: [address] [address] HEMOGLOBIN A1C 9.2 H 4.0-5.6 Apr 20, 2021 [place] LIPID PANEL FASTING Specimen Ty pe: SERUM 11:34 AM Comment: GLUCOS E Verified by repeat analysis. CALLED DR NG 04/20/21@1432 [facility] Read-back was completed. Ordering Provid er: ROMULO CHONG Report Released Date/Time: Apr 07, 2021 01:54 PM Reporting Lab: [facility] [address] [facility] [address] Performing Lab: [address] [address] CHOLESTEROL 181 0-199 TRIGLYCERIDE 193 H 0-150 LDL calculated 95 0-129 CHOL/HDL 3.9 HDL CHOLESTEROL 47 40-60 Apr 20, 2021 11:34 [place] LIVER FUNCTION Specimen Typ e: SERUM AM Comment: GLUCOS E Verified by repeat analysis. CALLED DR NG 04/20/21@1432 [facility] Read-back was completed. Ordering Provid er: ROMULO CHONG Report Released Date/Time: Apr 07, 2021 01:54 PM Reporting Lab: [facility] [address] [facility] [address] Performing Lab: [address] [address] PROTEIN,TOTAL 6.7 6.0-8.3 ALBUMIN 3.3 L 3.5-5.0 ALKALINE PHOSPHATASE 60 40-150 AST 14 5-34 ALT 15 0-55 BILIRUBIN, TOTAL 0.4 0.2-1.2 Apr 20, 2021 11:34 AM [place] TSH Specimen Type: SERUM Comment: GLUCOS E Verified by repeat analysis. CALLED DR NG 04/20/21@1432 [facility] Read-back was completed. Ordering Provid er: ROMULO CHONG Report Released Date/Time: Apr 07, 2021 01:54 PM [facility] [address] [facility] [address] Performing Lab: [facility] [address] [facility] [address] TSH 3.57 0.35-5.00 Apr 20, 2021 [place] MICROALBUMIN Specimen Type: URINE 11:34 AM CREATININE RATIO PANEL No commen t entered. Ordering Provid er: ROMULO CHONG Report Released Date/Time: Apr 07, 2021 01:54 PM Reporting Lab: [facility] [address] [facility] [address] Performing Lab: [facility] [address] [facility] [address] MICROALBUMIN/CREATININE RATIO canc 0-29.9 MICROALBUMIN,QUANTITATIVE > 300.0 RR U NAVAIL CREATININE URINE 173.58 Apr 20, 2021 [place] BASIC METABOLIC Specimen Type: SERUM 11:34 AM PANEL (fasting) Comment: GLUCOS E Verified by repeat analysis. CALLED DR NG 04/20/21@1432 [facility] Read-back was completed. Ordering Provid er: ROMULO CHONG Report Released Date/Time: Apr 07, 2021 01:54 PM Reporting Lab: [facility] [place] [facility] [address] [facility] [address] Performing Lab: [facility] [address] U[place]A NITROGEN 25 7-25 GLUCOSE 48 LL 65-100 SODIUM 141 135-145 POTASSIUM 4.3 3.5-5.0 CHLORIDE 105 100-110 CO2 29 20-30 CREATININE, Serum 1.82 H 0.50-1.40 eGFR (IDMS) 37 L >60 Apr 20, 2021 [place] CBC AND DIFF Specimen Type: BLOOD 11:34 AM (AUTO) No comment enter ed. Ordering Provid er: ROMULO CHONG Report Released Date/Time: Apr 07, 2021 01:54 PM Reporting Lab: [facility] [address] [facility] [address] Performing Lab: [facility] [address] [facility] [address] WBC 10.37 4.50-11.00 RBC 4.83 4.23-5.66 HGB 14.2 12.8-17 HCT 44.0 39.2-50.4 MCV 91.1 82-99 MCHC 32.3 30.8-35.1 PLT 286 140-360 RDW-CV 13.0 12.0-16.0 [place], Abs 1.04 0.30-1.10 MCH 29.4 26.2-32.6 Neut % 42.3 Lymph % 42.3 [place] % 10.0 Eos % 4.5 Baso % 0.7 Neut, Abs 4.38 2.20-7.60 Lymph, Abs 4.39 H 1.00-3.20 Eos, Abs 0.47 H 0.03-0.44 Baso, Abs 0.07 0.01-0.13 Immature Gran % 0.2 Immature Gran, Abs 0.02 0.00-0.06 Encounter Notes: All associated encounter notes This section contains the clinical notes associated to the Encounter. Date/Time Encounter Note(s) Provider Source Apr 12, 2021 02:48 PM MEDICATION MGT NOTE: MAGNUS SANDERSON VINOD LOCAL TITLE: OUTPATIENT MEDICATION REQUEST STANDARD TITLE: MEDICATION MGT NOTE DATE OF NOTE: APR 12, 2021@14:48 ENTRY DATE: APR 12, 2021@14:48:19 AUTHOR: MAGNUS SANDERSON EXP COSIGNER: URGENCY: STATUS: COMPLETED Medication Request Date of Request: Apr Please renew and mail. OMEPRAZOLE CAP,EC 20MG TAKE 2 CAPSULES BY MOUTH EVERY MORNING 30 MINUTE S BEFORE BREAKFAST Quantity: 180 Refills: 3 /es/ Magnus Sanderson RN Registered Nurse Signed: 04/12/2021 14:49 Receipt Acknowledged By: * AWAITING SIGNATURE * PETER CHONG
--- OUTSIDE RECORDS SUMMARY | 2022-02-03 00:34 | XMS_ITS | Encounter Summary ---
:1950 Author Organization Department [facility] rs Address [address] [place] [address] Support Name Relationship Address Phone LORI HOPKINS Unavailable [address] [place] [address] [phone] [place] [address] LORI HOPKINS Unavailable [address] [facility] [place] [place] [address] Insurance Providers: All historical and current Section [...] Number Silva JARRED PREFERRED STAND May 08 [id number] PROVIDER SHIVA 2011 [id number] RIAN MILLAN FEDERAL ORGANIZAT SELF ION (PPO) BCBS [place] PREFERRED STAND May 08 [id number] [phone] JAMES CE PATIENT FEP PROVIDER SHIVA 2010 87 123 RIAN MILLAN ORGANGERMANAT INDIV ION (PPO) IDUAL BCBS OF PREFERRED STAND May 08 [id number] [phone] JAMES CE PATIENT MASS PROVIDER SHIVA 2010 87 3 RIAN MILLAN FEDERAL ORGANIZAT SELF ION (PPO) BCBS OF PREFERRED STAND May 08 [id number] [phone] JAMES CE PATIENT MASS FEP PROVIDER SHIVA 2010 87 6 RIAN MILLAN ORGANIZAT SELF ION (PPO) BCBS OF DENTAL STAND May 08, DENTAL [id number] [phone] SANDEEP, PATIENT MASS FEP INSURANCE SHIVA 2010 87 6 RIAN DENTAL BCBS OF [place] MEDICARE FEP Dec 06 [id number] SANDEEP PATIENT FEP SECONDARY STAND 2019 [phone] RIAN MILLAN (NO B SHIVA EXC) MEDSE C CAREMARK PRESCRIPT FEP Dec 06, [id number] SANDEEP PATIENT FEP ION ONLY 2014 0 [phone] RIAN MILLAN [place] PRESCRIPT May 08, [id number] [phone] EDAURDO ENCEstella PATIENT FEP ION 2011 0 87 1 RIAN MILLAN PRESCRIPT CAREM May 08, [id number] [phone] EDUARDO ENCEstella, PATIENT FEP BCBS ION ARK 2011 0 87 1 RIAN FEPRX PLAN CAREMARK PRESCRIPT May 08, [id number] [phone] LAWR ENCE PATIENT FEPRX PLAN ION 2011 0 [id number] 331 RIAN MILLAN-F PRESCRIPT FEPRX May 08, [id number] [phone] LA WRENCE PATIENT EP BCBS ION /PT D 2010 0 87 1 RIAN MILLAN [facility] May 18, [id number] [phone] JAMES CE, [facility]IENT [facility] 32 7 RIAN CE ORGANIZ EXPRESS PRESCRIPT CONNE May 18, [id number] [phone] JAMES CE, PATIENT SCRIPTS ION CTICA 2003 [id number] RIAN ([id number]) RE MEDICARE MEDICARE PART Oct 06, PART A [id number] Lisa HOPKINS (WNR) (M) A 2012 UP33 [id number] JOSEPH MEDICARE MEDICARE PART Oct 06, PART B [id number] 800 Lisa HOPKINS (WNR) (M) B 2012 UP33 [phone] [place] MEDICARE MEDICARE PART Oct 06, PART A [id number] [phone] JAMES CE, PATIENT (WNR) (M) A 2013 UP33 00 [place] MEDICARE MEDICARE PART Oct 06, PART B [id number] JAMES CE, PATIENT (WNR) (M) B 2013 UP33 00 [place] MEDICARE MEDICARE PART Oct 06, PART A [id number] JAMES CE, PATIENT (WNR) (M) A 2013 UP33 2 [place] MEDICARE MEDICARE PART Oct 06, PART A [id number] JAMES CE, PATIENT (WNR) (M) A 2012 UP33 7 RIAN MEDICARE MEDICARE PART Oct 06, PART B [id number] [phone] JAMES CE, PATIENT (WNR) (M) B 2012 UP33 7 RIAN MEDICARE MEDICARE PART Oct 06, PART B [id number] JAMES CE, PATIENT (WNR) (M) B 2012 UP33 2 RIAN MEDICARE MEDICARE PART Dec 06, PART D [id number] Lisa HOPKINS ATIENT PART D (M) D 2018 UP33 [phone] RIAN (WNR) MEDICARE PRESCRIPT PART Oct 06, PART D [id number] LAWRE NCE, PATIENT PART D ION D 2012 32A 0 RIAN (WNR) MEDICARE PRESCRIPT PART Oct 06, PART D [id number] LAWRE NCE, PATIENT PART D ION D 2012 UP33 0 RIAN (WNR) MEDICARE MEDICARE PART Oct 06, PART D [id number] JAMES CE, PATIENT PART D (M) D 2012 UP33 7 RIAN (WNR) Selected Encounter This section includes the information on record at [place] for the Encounter. Date/Time Encounter Type Encounter Reason Provider Source Description Mar 25, 2021 12:25 Outpatient PRIMARY KIN,MARIBETH PM Encounter CARE/MEDICINE E DAVINA Estella Encounter Template Text not used by [place] Plan of Treatment: Future Appointments (+ 6 months) and Future Tests (+/- 45 days) The Plan of Treatment section includes future care activities for the patient from all [place] treatmentfacilities. This section includes future appointments and future orders which are active, pending orscheduled.Future Appointments This section includes appointments that were scheduled to occur 6 months from the date of the Encounter, up to a maximum of 20 appointments. The data comes from all [place] treatment facilities. Appointment Date/Time Appointment Type Appointment Facili ty Name Mar 31, 2021 02:00 PM [facility] Apr 09, 2021 01:00 PM [facility] Apr 13, 2021 02:00 PM [facility] Apr 13, 2021 02:30 PM AMBULATORY - PSYCHIATRY [employer] [employer] Apr 21, 2021 11:00 AM AMBULATORY - MEDICINE [facility] Apr 22, 2021 01:00 PM AMBULATORY - REHAB MEDICINE [facility] May 03, 2021 01:45 PM AMBULATORY - MEDICINE [place] CN[facility]L [facility] May 05, 2021 03:00 PM AMBULATORY - REH[place] MEDICINE [place] [facility] Jun 01, 2021 02:00 PM AMBULATORY [facility] Jun 02, 2021 12:30 PM AMBULATORY [facility] Jun 04, 2021 12:30 PM AMBULATORY [facility] Jun 08, 2021 02:[address] [facility] [place] [facility] Jun 16, 2021 02:00 PM [facility]UL[facility]ORY [facility] Jun 18, 2021 01:00 PM [facility] [place] [facility] Jun 22, 2021 02:00 PM [facility] Jun 23, 2021 01:[address] [facility] [place] [facility] Jul 07, 2021 11:00 AM AMBULATORY [facility] Jul 13, 2021 02:00 PM [facility] Jul 20, 2021 02:30 PM [facility] Aug 05, 2021 02:00 PM [facility] Lab Results: +/- 30 days of the encounter This section includes the Chemistry and Hematology Lab Results on record with [place] for the patient. Radiology Reports and Pathology Reports are provided separately, in subsequent sections.Lab Results This section contains the Chemistry/Hematology Results that were resulted 30 days before or 30 daysafter the date of the Encounter. Date/Time Source Result Type Result - Unit Interpretation Reference Range Comment Apr 20, 2021 [employer] VITAMIN D (25-OH) Specimen Type : SERUM 11:34 AM Comment: GLUCOS E Verified by repeat analysis. CALLED DR NG 04/20/21@0542 [facility] Read-back was completed. Ordering Provid er: ROMULO CHONG Report Released Date/Time: Apr 07, 2021 01:54 PM Reporting Lab: [address] [address] Performing Lab: [address] [address] VITAMIN D (25-OH) <13 L 20-50 Apr 20, 2021 [employer] HEMOGLOBIN A1C PANEL Specimen T ype: BLOOD 11:34 AM Comment: Testin g performed by [facility] certified Mazariegos Enzymatic with CV <2%. [...] Apr 07, 2021 01:54 PM Reporting Lab: [address] [address] Performing Lab: [address] [address] HEMOGLOBIN A1C 9.2 H 4.0-5.6 Apr 20, 2021 [employer] LIPID PANEL FASTING Specimen Ty pe: SERUM 11:34 AM Comment: GLUCOS E Verified by repeat analysis. CALLED DR NG 04/20/21@1432 [facility] Read-back was completed. Ordering Provid er: ROMULO CHONG Report Released Date/Time: Apr 07, 2021 01:54 PM Reporting Lab: [address] [address] Performing Lab: [address] [address] CHOLESTEROL 181 0-199 TRIGLYCERIDE 193 H 0-150 LDL calculated 95 0-129 CHOL/HDL 3.9 HDL CHOLESTEROL 47 40-60 Apr 20, 2021 11:34 [employer] LIVER FUNCTION Specimen Typ e: SERUM AM Comment: GLUCOS E Verified by repeat analysis. CALLED DR NG 04/20/21@1432 [facility] Read-back was completed. Ordering Provid er: ROMULO CHONG Report Released Date/Time: Apr 07, 2021 01:54 PM Reporting Lab: [address] [address] Performing Lab: [facility] [address] [facility] [address] PROTEIN,TOTAL 6.7 6.0-8.3 ALBUMIN 3.3 L 3.5-5.0 ALKALINE PHOSPHATASE 60 40-150 AST 14 5-34 ALT 15 0-55 BILIRUBIN, TOTAL 0.4 0.2-1.2 Apr 20, 2021 11:34 AM [employer] TSH Specimen Type: SERUM Comment: GLUCOS E Verified by repeat analysis. CALLED DR NG 04/20/21@1432 [facility] Read-back was completed. Ordering Provid er: ROMULO CHONG Report Released Date/Time: Apr 07, 2021 01:54 PM Reporting Lab: [facility] [address] [facility] [address] Performing Lab: [facility] [address] [address] TSH 3.57 0.35-5.00 Apr 20, 2021 [employer] MICROALBUMIN Specimen Type: URINE 11:34 AM CREATININE RATIO PANEL No commen t entered. Ordering Provid er: ROMULO CHONG Report Released Date/Time: Apr 07, 2021 01:54 PM Reporting Lab: [facility] [address] [facility] [address] Performing Lab: [facility] [address] [address] MICROALBUMIN/CREATININE RATIO canc 0-29.9 MICROALBUMIN,QUANTITATIVE > 300.0 RR U NAVAIL CREATININE URINE 173.58 Apr 20, 2021 [employer] BASIC METABOLIC Specimen Type: SERUM 11:34 AM PANEL (fasting) Comment: GLUCOS E Verified by repeat analysis. CALLED DR NG 04/20/21@1432 [facility] Read-back was completed. Ordering Provid er: ROMULO CHONG Report Released Date/Time: Apr 07, 2021 01:54 PM Reporting Lab: [facility] [address] [address] Performing Lab: [facility] [address] [facility] [address] UREA NITROGEN 25 7-25 GLUCOSE 48 LL 65-100 SODIUM 141 135-145 POTASSIUM 4.3 3.5-5.0 CHLORIDE 105 100-110 CO2 29 20-30 CREATININE, Serum 1.82 H 0.50-1.40 eGFR (IDMS) 37 L >60 Apr 20, 2021 [employer] CBC AND DIFF Specimen Type: BLOOD 11:34 AM (AUTO) No comment enter ed. Ordering Provid er: ROMULO CHONG Report Released Date/Time: Apr 07, 2021 01:54 PM Reporting Lab: [facility] [address] [facility] [address] Performing Lab: [facility] [address] [facility] [address] WBC 10.37 4.50-11.00 RBC 4.83 4.23-5.66 HGB 14.2 12.8-17 HCT 44.0 39.2-50.4 MCV 91.1 82-99 MCHC 32.3 30.8-35.1 PLT 286 140-360 RDW-CV 13.0 12.0-16.0 [place], Abs 1.04 0.30-1.10 MCH 29.4 26.2-32.6 Neut % 42.3 Lymph % 42.3 [place] % 10.0 Eos % 4.5 Baso % 0.7 Neut, Abs 4.38 2.20-7.60 Lymph, Abs 4.39 H 1.00-3.20 Eos, Abs 0.47 H 0.03-0.44 Baso, Abs 0.07 0.01-0.13 Immature Gran % 0.2 Immature Gran, Abs 0.02 0.00-0.06 Encounter Notes: All associated encounter notes This section contains the clinical notes associated to the Encounter. Date/Time Encounter Note(s) Provider Source Mar 25, 2021 12:25 PM PRIMARY CARE SECURE MESSAGING: PERI SANDERSON [facility] WSN LOCAL TITLE: PRIMARY CARE SECURE MESSAGING [facility] STANDARD TITLE: PRIMARY CARE SECURE MESSAGING DATE OF NOTE: MAR 25, 2021@12:25 ENTRY DATE: MAR 25, 2021@12:25:55 AUTHOR: PERI SANDERSON EXP COSIGNER: URGENCY: STATUS: COMPLETED ------Original Message Sent: 03/25/2021 12:23 PM From: RIAN HOPKINS To: ARLETTE,O_PRIMARY CARE_SPOPC Subject: NPH Human 100 units Not on my list so I can't reorder it can you ple ase help me thanks Juan Carlos [id number] . /justine/ Peri Sanderson, RN Registered Nurse Signed: 03/25/2021 12:25
--- OUTSIDE RECORDS SUMMARY | 2022-02-03 00:35 | XMS_ITS ---
:1950 Author Organization Department [facility] rs Address [address] [place] [address] Support Name Relationship Address Phone LORI HOPKINS Unavailable [address] [place] [address] [place] [address] LORI HOPKINS Unavailable [address] [place] [address] Insurance Providers: All historical and current Section [...] Number Silva JARRED PREFERRED STAND May 08 [id number] PROVIDER SHIVA 2010 [id number] RIAN MILLAN FEDERAL ORGANIZAT SELF ION (PPO) BCBS MS PREFERRED STAND May 08 [id number] [phone] JAMES CE PATIENT FEP PROVIDER SHIVA 2010 87 123 RIAN MILLAN ORGANGERMANAT INDIV ION (PPO) IDUAL BCBS OF PREFERRED STAND May 08 [id number] [phone] JAMES CE PATIENT MASS PROVIDER SHIVA 2010 87 3 RIAN MILLAN FEDERAL ORGANIZAT SELF ION (PPO) BCBS OF PREFERRED STAND May 08 [id number] [phone] JAMES CE PATIENT MASS FEP PROVIDER SHIVA 2010 87 6 RIAN MILLAN ORGANIZAT SELF ION (PPO) BCBS OF DENTAL STAND May 08, DENTAL [id number] [phone] SANDEEP, PATIENT MASS FEP INSURANCE SHIVA 2010 87 6 RIAN DENTAL BCBS OF ID MEDICARE FEP Dec 06 [id number] SANDEEP PATIENT FEP SECONDARY STAND 2019 [phone] RIAN MILLAN (NO B SHIVA EXC) MEDSE C CAREMARK PRESCRIPT FEP Dec 06, [id number] SANDEEP PATIENT FEP ION ONLY 2014 0 [phone] RIAN MILLAN [place] PRESCRIPT May 08, [id number] EDUARDO MATTHEW PATIENT FEP ION 2011 0 87 1 RIAN MILLAN PRESCRIPT CAREM May 08, [id number] [phone] EDUARDO MATTHEW, PATIENT FEP BCBS ION ARK 2011 0 87 1 RIAN FEPRX PLAN CAREMARK PRESCRIPT May 08, [id number] [phone] LAWR ENCEstella PATIENT FEPRX PLAN ION 2011 0 87 331 RIAN MILLAN-F PRESCRIPT FEPRX May 08, [id number] [phone] LA WRENCE PATIENT EP BCBS ION /PT D 2010 0 87 1 RIAN MILLAN [facility] May 18, [id number] [phone] JAMES CE, PATIENT RE [place] 2003 32 7 RIAN CE ORGANIZ EXPRESS PRESCRIPT CONNE May 18, [id number] [phone] JAMES CE, PATIENT SCRIPTS ION CTICA 2003 [id number] 7 RIAN ([id number]) RE MEDICARE MEDICARE PART Oct 06, PART A [id number] JAMES CE, PATIENT (WNR) (M) A 2013 UP33 00 [place] MEDICARE MEDICARE PART Oct 06, PART A [id number] 800 Lisa HOPKINS (WNR) (M) A 2013 UP33 [id number] [place] MEDICARE MEDICARE PART Oct 06, PART B [id number] [id number] JAMES CE, PATIENT (WNR) (M) B 2013 UP33 00 [place] MEDICARE MEDICARE PART Oct 06, PART B [id number] 800 Lisa HOPKINS (WNR) (M) B 2012 UP33 [id number] [place] MEDICARE MEDICARE PART Oct 06, PART A [id number] JAMES CE, PATIENT (WNR) (M) A 2013 UP33 2 [place] MEDICARE MEDICARE PART Oct 06, PART A [id number] JAMES CE, PATIENT (WNR) (M) A 2013 UP33 7 RIAN MEDICARE MEDICARE PART Oct 06, PART B [id number] [id number] JAMES CE, PATIENT (WNR) (M) B 2012 UP33 7 RIAN MEDICARE MEDICARE PART Oct 06, PART B [id number] JAMES CE, PATIENT (WNR) (M) B 2012 UP33 2 RIAN MEDICARE MEDICARE PART Dec 06, PART D [id number] Lisa HOPKINS ATIENT PART D (M) D 2018 UP33 [phone] RIAN (WNR) MEDICARE PRESCRIPT PART Oct 06, PART D [id number] LAWRE NCE, PATIENT PART D ION D 2012 32A 0 RIAN (WNR) MEDICARE PRESCRIPT PART Oct 06, PART D [id number] LAWRE NCE, PATIENT PART D ION D 2012 UP33 0 RIAN (WNR) MEDICARE MEDICARE PART Oct 06, PART D [id number] JAMES CE, PATIENT PART D (M) D 2012 UP33 7 RIAN (WNR) Selected Encounter This section includes the information on record at ID for the Encounter. Date/Time Encounter Type Encounter Description Reason Provider Source Mar 22, 2021 03:38 Outpatient Encounter SLEEP STUDY PM IHE Encounter Template Text not used [...] 31, 2021 02:00 PM AMBULATORY - MEDICINE [place] CNTR WSTRN [place] [facility] Apr 09, 2021 01:00 PM AMBULATORY MEDICINE [facility] W[place]N [place] [facility] Apr 13, 2021 02:00 PM [facility] [place] [facility] Apr 13, 2021 02:30 PM AMBULATORY - PSYCHIATRY [place] Apr 21, 2021 11:00 AM AMBULATORY - MEDICINE [place] Apr 22, 2021 01:00 PM AMBULATORY - REHAB MEDICINE [facility] May 03, 2021 01:45 PM [facility] [place] [facility] May 05, 2021 03:00 PM [facility] [place] [facility] Jun 01, 2021 02:00 PM AMBULATORY [facility] Jun 02, 2021 12:30 PM AMBULATORY [facility] Jun 04, 2021 12:30 PM AMBULATORY - [facility] Jun 08, 2021 02:00 PM AMBULATORY - [facility] [place] [place] [facility] Jun 16, 2021 02:00 PM AMBULATORY [facility] Jun 18, 2021 01:00 PM [facility] [place] [facility] Jun 22, 2021 02:00 PM AMBULATORY [facility] Jun 23, 2021 01:00 PM [facility] W [place] [facility] Jul 07, 2021 11:00 AM AMBULATORY - [facility] Jul 13, 2021 02:00 PM AMBULATORY [facility] Jul 20, 2021 02:30 PM [facility] Aug 05, 2021 02:00 PM [facility] Lab Results: +/- 30 days of the [...] Interpretation Reference Range Comment Apr 20, 2021 [place] VITAMIN D (25-OH) Specimen Type : SERUM 11:34 AM Comment: GLUCOS E Verified by repeat analysis. CALLED DR NG 04/20/21@1123 [facility] Read-back was completed. Ordering Provid er: ROMULO CHONG Report Released Date/Time: Apr 07, 2021 01:54 PM Reporting Lab: [address] [address] Performing Lab: [address] [address] VITAMIN D (25-OH) <13 L 20-50 Apr 20, 2021 [place] HEMOGLOBIN A1C PANEL Specimen T ype: BLOOD [...] Apr 07, 2021 01:54 PM Reporting Lab: [address] [address] Performing Lab: [address] [address] HEMOGLOBIN A1C 9.2 H 4.0-5.6 Apr 20, 2021 [place] LIPID PANEL FASTING Specimen Ty pe: SERUM 11:34 AM Comment: GLUCOS E Verified by repeat analysis. CALLED DR NG 04/20/21@1432 [facility] Read-back was completed. Ordering Provid er: ROMULO CHONG Report Released Date/Time: Apr 07, 2021 01:54 PM Reporting Lab: [address] [address] Performing Lab: [address] [address] CHOLESTEROL 181 0-199 TRIGLYCERIDE 193 H 0-150 LDL calculated 95 0-129 CHOL/HDL 3.9 HDL CHOLESTEROL 47 40-60 Apr 20, 2021 11:34 [place] LIVER FUNCTION Specimen Typ e: SERUM AM Comment: GLUCOS E Verified by repeat analysis. CALLED DR NG 04/20/21@1432 [facility] Read-back was completed. Ordering Provid er: ROMULO CHONG Report Released Date/Time: Apr 07, 2021 01:54 PM Reporting Lab: [address] [address] Performing Lab: [facility] [address] [facility] [address] PROTEIN,TOTAL 6.7 6.0-8.3 ALBUMIN 3.3 L 3.5-5.0 ALKALINE PHOSPHATASE 60 40-150 AST 14 5-34 ALT 15 0-55 BILIRUBIN, TOTAL 0.4 0.2-1.2 Apr 20, 2021 11:34 AM [place] TSH Specimen Type: SERUM Comment: GLUCOS E Verified by repeat analysis. CALLED DR NG 04/20/21@1432 [facility] Read-back was completed. Ordering Provid er: ROMULO CHONG Report Released Date/Time: Apr 07, 2021 01:54 PM Reporting Lab: [facility] [address] [facility] [address] Performing Lab: [facility]USE[facility] [address] [facility] [address] TSH 3.57 0.35-5.00 Apr 20, 2021 [place] MICROALBUMIN Specimen Type: URINE 11:34 AM CREATININE RATIO PANEL No commen t entered. Ordering Provid er: ROMULO CHONG Report Released Date/Time: Apr 07, 2021 01:54 PM Reporting Lab: [facility]OSPITALTRN [facility]ITAL[facility]ETS [facility] [address] [facility] [address] Performing Lab: [facility] HOSPITALTRN [facility]ITALUSETS [facility] [address] [facility] [address] MICROALBUMIN/CREATININE RATIO canc 0-29.9 MICROALBUMIN,QUANTITATIVE > 300.0 RR U NAVAIL CREATININE URINE 173.58 Apr 20, 2021 [place] BASIC METABOLIC Specimen Type: SERUM 11:34 AM PANEL (fasting) Comment: GLUCOS E Verified by repeat analysis. CALLED DR NG 04/20/21@1432 [facility] Read-back was completed. Ordering Provid er: ROMULO CHONG Report Released Date/Time: Apr 07, 2021 01:54 PM Reporting Lab: [facility] [place] [facility] [address] [facility] [address] Performing Lab: [facility]ENTERRLAM[facility] HOSPITALTRN [facility] HOSPITALUSETS [address] [place] [address] UREA NITROGEN 25 7-25 GLUCOSE 48 LL 65-100 SODIUM 141 135-145 POTASSIUM 4.3 3.5-5.0 CHLORIDE 105 100-110 CO2 29 20-30 CREATININE, Serum 1.82 H 0.50-1.40 eGFR (IDMS) 37 L >60 Apr 20, 2021 [place] CBC AND DIFF Specimen Type: BLOOD 11:34 AM (AUTO) No comment enter ed. Ordering Provid er: ROMULO CHONG Report Released Date/Time: Apr 07, 2021 01:54 PM Reporting Lab: [address] [address] Performing Lab: [address] [address] WBC 10.37 4.50-11.00 RBC 4.83 4.23-5.66 HGB 14.2 12.8-17 HCT 44.0 39.2-50.4 MCV 91.1 82-99 MCHC 32.3 30.8-35.1 PLT 286 140-360 RDW-CV 13.0 12.0-16.0 [place], Abs 1.04 0.30-1.10 MCH 29.4 26.2-32.6 Neut % 42.3 Lymph % 42.3 Leslie % 10.0 Eos % 4.5 Baso % 0.7 Neut, Abs 4.38 2.20-7.60 Lymph, Abs 4.39 H 1.00-3.20 Eos, Abs 0.47 H 0.03-0.44 Baso, Abs 0.07 0.01-0.13 Immature Gran % 0.2 Immature Gran, Abs 0.02 0.00-0.06 Encounter Notes: All associated encounter notes This section contains the clinical notes associated to the Encounter. Date/Time Encounter Note(s) Provider Source Mar 22, 2021 03:38 PM SLEEP MEDICINE NOTE: MITCHELL HANCOCK CN TRL WSTRN LOCAL TITLE: SLEEP TEST SFT DATA UPLOAD [facility] STANDARD TITLE: SLEEP MEDICINE NOTE DATE OF NOTE: MAR 22, 2021@15:38 ENTRY DATE: MAR 22, 2021@15:38:53 AUTHOR: MITCHELL HANCOCK EXP COSIGNER: URGENCY: STATUS: COMPLETED SLEEP TEST SFT DATA UPLOAD Has ADDENDA Home sleep study recorder received, downloaded. Data quality is UNACCEPTABLE. Home Sleep Apnea Test (HSAT) performed on Mar 11, 2021 Post home sleep questionnaires were RETURNED. Patient had disease specific education at this e ncounter. NO DATA RECORDED. EQUIPMENT WAS USED. CLM TO SEE IF PATIENT IS INTERESTED IN REPEAT STUDY. PLEASE ENTER NEW CONSULT IF PATIENT IS INTERESTE D IN REPEATING SLEEP STUDY. /CECILIA Blevins PIPE OUT WORKER Signed: 03/22/2021 15:40 Receipt Acknowledged By: 03/22/2021 23:20 /virgilio CHONG MD PHYSICIAN 03/22/2021 ADDENDUM STATUS: COMPLETED please notify pt and ask if he is willing to rep eat home sleep study. thx /virgilio CHONG MD PHYSICIAN Signed: 03/22/2021 23:20 Receipt Acknowledged By: 03/24/2021 11:43 /virgilio MCWILLIAMS LPN LICENSED PRACTICAL NURSE 03/23/2021 ADDENDUM STATUS: COMPLETED Patient has been scheduled for re testing. /CECILIA Blevins PIPE OUT WORKER Signed: 03/23/2021 08:29 03/24/2021 ADDENDUM STATUS: COMPLETED Attempted to contact to discuss option of repeat sleep study. Unable to reach and requested call back. May be moot, as i t appears he has already been contacted and scheduled for another study, as ab ove. /virgilio MCWILLIAMS LPN LICENSED PRACTICAL NURSE Signed: 03/24/2021 11:44
--- OUTSIDE RECORDS SUMMARY | 2022-02-03 00:35 | XMS_ITS ---
:1950 Author Organization Department [facility] rs Address [address] [place] [address] Support Name Relationship Address Phone LORI HOPKINS Unavailable [address] [place] [address] [place] [address] LORI HOPKINS Unavailable [address] [facility] [phone] [place] [address] Insurance Providers: All historical and current Section [...] Number Silva JARRED PREFERRED STAND May 08 [id number] PROVIDER SHIVA 2011 [id number] [phone] RIAN MILLAN FEDERAL ORGANIZAT SELF ION (PPO) BCBS [place] PREFERRED STAND May 08 [id number] [phone] JAMES CE PATIENT FEP PROVIDER SHIVA [phone] RIAN MILLAN ORGANGERMANAT INDIV ION (PPO) IDUAL BCBS OF PREFERRED STAND May 08 [id number] [phone] JAMES CE PATIENT MASS PROVIDER SHIVA 2010 87 3 RIAN MILLAN FEDERAL ORGANIZAT SELF ION (PPO) BCBS OF PREFERRED STAND May 08 [id number] [phone] JAMES CE PATIENT MASS FEP PROVIDER SHIVA 2010 87 6 RIAN MILLAN ORGANIZAT SELF ION (PPO) BCBS OF DENTAL STAND May 08, DENTAL [id number] [phone] SANDEEP, PATIENT MASS FEP INSURANCE SHIVA 2010 87 6 RIAN DENTAL BCBS OF [place] MEDICARE FEP Dec 06 [id number] SANDEEP PATIENT FEP SECONDARY STAND 2019 [phone] RIAN MILLAN (NO B SHIVA EXC) MEDSE C CAREMARK PRESCRIPT FEP Dec 06, [id number] SANDEEP PATIENT FEP ION ONLY 2014 0 [phone] RIAN MILLAN CARELIONEL PRESCRIPT May 08, [id number] [phone] EDUARDO ENCEstella PATIENT FEP ION 2011 0 87 1 RIAN MILLAN PRESCRIPT CAREM May 08, [id number] [phone] EDUARDO ENCEstella, PATIENT FEP BCBS ION ARK 2011 0 87 1 RIAN FEPRX PLAN CAREMARK PRESCRIPT May 08, [id number] [phone] LAWR ENCE PATIENT FEPRX PLAN ION 2011 0 [phone] RIAN MILLAN-F PRESCRIPT FEPRX May 08, [id number] [phone] LA WRENCE PATIENT EP BCBS ION /PT D 2010 0 87 1 R[facility]AN [facility] May 18, [id number] [phone] JAMES CE, [facility] 2003 32 7 RIAN CE ORGANIZ EXPRESS PRESCRIPT CONNE May 18, [id number] [phone] JAMES CE, PATIENT SCRIPTS ION CTICA 2003 [id number] RIAN ([id number]) RE MEDICARE MEDICARE PART Oct 06, PART B [id number] JAMES CE, PATIENT (WNR) (M) B 2012 UP33 2 JOSEPH MEDICARE MEDICARE PART Oct 06, PART A [id number] JAMES CE, PATIENT (WNR) (M) A 2013 UP33 00 [place] MEDICARE MEDICARE PART Oct 06, PART A [id number] Lisa HOPKINS (WNR) (M) A 2012 UP33 [id number] [place] MEDICARE MEDICARE PART Oct 06, PART B [id number] [id number] JAMES CE, PATIENT (WNR) (M) B 2013 UP33 00 [place] MEDICARE MEDICARE PART Oct 06, PART A [id number] JAMES CE, PATIENT (WNR) (M) A 2013 UP33 7 [place]PH MEDICARE MEDICARE PART Oct 06, PART B [id number] JAMES CE, PATIENT (WNR) (M) B 2012 UP33 7 RIAN MEDICARE MEDICARE PART Oct 06, PART B [id number] 800 Lisa HOPKINSIENT (WNR) (M) B 2012 UP33 [id number] RIAN MEDICARE MEDICARE PART Oct 06, PART A [id number] JAMES CE, PATIENT (WNR) (M) A 2012 UP33 2 RIAN MEDICARE MEDICARE PART Dec 06, PART D [id number] Lisa HOPKINS ATIENT PART D (M) D 2018 UP33 [phone] RIAN (WNR) MEDICARE MEDICARE PART Oct 06, PART D [id number] [phone] JAMES CE, PATIENT PART D (M) D 2012 UP33 7 RIAN (WNR) MEDICARE PRESCRIPT PART Oct 06, PART D [id number] LAWRE NCE, PATIENT PART D ION D 2012 [id number] 0 RIAN (WNR) MEDICARE PRESCRIPT PART Oct 06, PART D [id number] [phone] LAWRE NCE, PATIENT PART D ION D 2012 UP33 0 RIAN (WNR) Selected Encounter This section includes the information on record at [place] for the Encounter. Date/Time Encounter Type Encounter Reason Provider Source Description Mar 05, 2021 12:21 Outpatient PRIMARY KIN,MARIBETH PM Encounter CARE/MEDICINE E DAVINA IHE Encounter Template Text not used by [place] Plan of Treatment: Future Appointments (+ 6 months) and Future Tests (+/- 45 days) The Plan of Treatment section includes future care activities for the patient from all [place] treatmentfacilities. This section includes future appointments and future orders which are active, pending orscheduled.Future Appointments This section includes appointments that were scheduled to occur 6 months from the date of the Encounter, up to a maximum of 20 appointments. The data comes from all [place] treatment facilities. Appointment Date/Time Appointment Type Appointment Facili ty Name Mar 11, 2021 11:00 AM AMBULATORY - MEDICINE [place] Mar 31, 2021 02:00 PM [facility] Apr 09, 2021 01:00 PM [facility] Apr 13, 2021 02:00 PM [facility] Apr 13, 2021 02:30 PM AM[facility]UL[facility] - [place]CHIATRY [place] Apr 21, 2021 11:00 AM AM[facility]ULATORY [facility] Apr 22, 2021 01:00 PM AMBULATORY [facility] May 03, 2021 01:45 PM [facility] May 05, 2021 03:00 PM [facility] Jun 01, 2021 02:00 PM AMBULATORY [facility]RY [place] Jun 02, 2021 12:30 PM AMBULATORY [facility] [place] Jun 04, 2021 12:30 PM AMBULATORY [facility] Jun 08, 2021 02:00 PM [facility] Jun 16, 2021 02:00 PM AMBULATORY [facility] Jun 18, 2021 01:00 PM [facility] Jun 22, 2021 02:00 PM [facility] Jun 23, 2021 01:00 PM [facility] Jul 07, 2021 11:00 AM [facility]ORY [facility] Jul 13, 2021 02:00 PM [facility] Jul 20, 2021 02:30 PM AMBULATORY [facility] Encounter Notes: All associated encounter notes This section contains the clinical notes associated to the Encounter. Date/Time Encounter Note(s) Provider Source Mar 05, 2021 12:21 PM PRIMARY CARE SECURE MESSAGING: MAGNUS SANDERSON [facility] W[facility]N LOCAL TITLE: PRIMARY CARE SECURE MESSAGING [facility] STANDARD TITLE: PRIMARY CARE SECURE MESSAGING DATE OF NOTE: MAR 05, 2021@12:21 ENTRY DATE: MAR 05, 2021@12:22:16 AUTHOR: MAGNUS SANDERSON COSIGNER: URGENCY: STATUS: COMPLETED PRIMARY CARE SECURE MESSAGING Has ADDENDA * ------Original Message Sent: 03/05/2021 12:19 PM From: RIAN HOPKINS To: ARLETTEO_PRIMARY CARE_SPOPC Subject: [place] Hi i am sorry to bother you but after opening th e box with my needles in it they sent me the wrong size ones. They sent me 1/2 8mm 31g instead of 1mg 8mm 31g can anything be done. Juan Carlos Lopez /justine/ Magnus Sanderson RN Registered Nurse Signed: 03/05/2021 12:22 Receipt Acknowledged By: 03/08/2021 21:14 /justine/ ROMULO CHONG MD PHYSICIAN 03/08/2021 ADDENDUM STATUS: COMPLETED order changed /justine/ ROMULO CHONG MD PHYSICIAN Signed: 03/08/2021 21:15
--- OUTSIDE RECORDS SUMMARY | 2022-02-03 00:35 | XMS_ITS | Encounter Summary ---
:1950 Author Organization Department [facility] rs Address [address] [place] [address] Support Name Relationship Address Phone LORI HOPKINS Unavailable [address] [place] [address] [phone] [place] [address] LORI HOPKINS Unavailable [address] [place] [address] Insurance Providers: All historical and current Section [...] Number Silva JARRED PREFERRED STAND May 08 [id number] PROVIDER SHIVA 2011 [id number] RIAN MILLAN FEDERAL ORGANIZAT SELF ION (PPO) BCBS [place] PREFERRED STAND May 08 [id number] [phone] JAMES CE PATIENT FEP PROVIDER SHIVA [phone] RIAN MILLAN ORGANGERMANAT INDIV ION (PPO) IDUAL BCBS OF PREFERRED STAND May 08 [id number] [phone] JAMES CE PATIENT MASS PROVIDER SHIVA 2010 87 3 RIAN MILLAN FEDERAL ORGANIZAT SELF ION (PPO) BCBS OF PREFERRED STAND May 08 [id number] [phone] JAMES CE PATIENT MASS FEP PROVIDER SHIVA 2010 87 6 RIAN MILLAN ORGANIZAT SELF ION (PPO) BCBS OF DENTAL STAND May 08, DENTAL [id number] [phone] SANDEEP, PATIENT MASS FEP INSURANCE SHIVA 2010 87 6 RIAN DENTAL BCBS OF [place] MEDICARE FEP Dec 06 [id number] SANDEEP PATIENT FEP SECONDARY STAND 2019 [phone] RIAN MILLAN (NO B SHIVA EXC) MEDSE C CAREMARK PRESCRIPT FEP Dec 06, [id number] SANDEEP PATIENT FEP ION ONLY 2014 0 87 [phone] RIAN MILLAN CAREMARK PRESCRIPT May 08, [id number] [phone] EDUARDO ENCEstella PATIENT FEP ION 2011 0 87 1 RIAN MILLAN PRESCRIPT CAREM May 08, [id number] [phone] EDUARDO MATTHEW, PATIENT FEP BCBS ION ARK 2011 0 87 1 RIAN FEPRX PLAN CAREMARK PRESCRIPT May 08, [id number] [phone] LAWR ENCEstella PATIENT FEPRX PLAN ION 2011 0 87 331 RIAN MILLAN-F PRESCRIPT FEPRX May 08, [id number] [phone] LA WRENCE PATIENT EP BCBS ION /PT D 2010 0 87 1 RIAN MILLAN [facility] May 18, [id number] [phone] JAMES CE, PATIENT RE [place] 2003 32 7 RIAN CE ORGANIZ EXPRESS PRESCRIPT CONNE May 18, [id number] [phone] JAMES CE, PATIENT SCRIPTS ION CTICA 2003 [id number] 7 RIAN ([id number]) RE MEDICARE MEDICARE PART Oct 06, PART A [id number] Lisa HOPKINS (WNR) (M) A 2012 UP33 [id number] RIAN MEDICARE MEDICARE PART Oct 06, PART A [id number] [phone] JAMES CE, PATIENT (WNR) (M) A 2013 UP33 00 JOSEPH MEDICARE MEDICARE PART Oct 06, PART B [id number] 800 Lisa HOPKINS (WNR) (M) B 2012 UP33 [id number] [place] MEDICARE MEDICARE PART Oct 06, PART B [id number] JAMES CE, PATIENT (WNR) (M) B 2013 UP33 00 [place] MEDICARE MEDICARE PART Oct 06, PART A [id number] JAMES CE, PATIENT (WNR) (M) A 2013 UP33 2 RIAN MEDICARE MEDICARE PART Oct 06, PART A [id number] JAMES CE, PATIENT (WNR) (M) A 2012 UP33 7 RIAN MEDICARE MEDICARE PART Oct 06, PART B [id number] [id number] JAMES CE, PATIENT (WNR) (M) B 2012 UP33 7 RIAN MEDICARE MEDICARE PART Oct 06, PART B [id number] JAMES CE, PATIENT (WNR) (M) B 2012 UP33 2 RIAN MEDICARE MEDICARE PART Dec 06, PART D [id number] Lisa HOPKINS ATIENT PART D (M) D 2018 UP33 [phone] RIAN (WNR) MEDICARE PRESCRIPT PART Oct 06, PART D [id number] LAWRE NCE, PATIENT PART D ION D 2012 32A 0 RIAN (WNR) MEDICARE PRESCRIPT PART Oct 06, PART D [id number] LAWRE NCE, PATIENT PART D ION D 2012 UP33 0 RIAN (WNR) MEDICARE MEDICARE PART Oct 06, PART D [id number] JAMES CE, PATIENT PART D (M) D 2012 UP33 7 RIAN (WNR) Selected Encounter This section includes the information on record at [place] for the Encounter. Date/Time Encounter Type Encounter Reason Provider Source Description Feb 24, 2021 09:45 Outpatient PRIMARY MARIBETH SANDERSON AM Encounter CARE/MEDICINE E DAVINA Estella Encounter Template Text not used by [place] Plan of Treatment: Future Appointments (+ 6 months) and Future Tests (+/- 45 days) The Plan of Treatment section includes future care activities for the patient from all [place] treatmentfacilities. This section includes future appointments and future orders which are active, pending orscheduled.Future Appointments This section includes appointments that were scheduled to occur 6 months from the date of the Encounter, up to a maximum of 20 appointments. The data comes from all [place] treatment facilities. Appointment Date/Time Appointment Type Appointment Facili ty Name Mar 11, 2021 11:00 AM AMBULATORY - MEDICINE [place] Mar 31, 2021 02:00 PM [facility] Apr 09, 2021 01:00 PM [facility] Apr 13, 2021 02:00 PM [facility] Apr 13, 2021 02:30 PM AMBULATORY - PS[place]CHIATRY [place] Apr 21, 2021 11:00 AM AMBULATORY [facility] Apr 22, 2021 01:00 PM AMBULATORY REHAB [facility] May 03, 2021 01:45 PM [facility] May 05, 2021 03:00 PM [facility] Jun 01, 2021 02:00 PM AMBULATORY PS[place]CHIATRY [place] Jun 02, 2021 12:30 PM AMBULATORY [place]RY [place] Jun 04, 2021 12:30 PM AMBULATORY [facility] Jun 08, 2021 02:00 PM [facility] Jun 16, 2021 02:00 PM AMBULATORY [facility] Jun 18, 2021 01:00 PM [facility] Jun 22, 2021 02:00 PM AMBULATORY [facility] Jun 23, 2021 01:00 PM [facility] Jul 07, 2021 11:00 AM AMBULATORY [facility] Jul 13, 2021 02:00 PM [facility] Jul 20, 2021 02:30 PM AMBULATORY [facility] Encounter Notes: All associated encounter notes This section contains the clinical notes associated to the Encounter. Date/Time Encounter Note(s) Provider Source Feb 24, 2021 09:45 AM PRIMARY CARE SECURE MESSAGING: AMGNUS SANDERSON [facility] LOCAL TITLE: PRIMARY CARE SECURE MESSAGING [facility] STANDARD TITLE: PRIMARY CARE SECURE MESSAGING DATE OF NOTE: FEB 24, 2021@09:45 ENTRY DATE: FEB 24, 2021@09:45:38 AUTHOR: MAGNUS SANDERSON COSIGNER: URGENCY: STATUS: COMPLETED ------Original Message Sent: 02/23/2021 11:23 PM From: RIAN HOPKINS To: ARLETTE,O_PRIMARY CARE_SPOPC Subject: Meds I need a new scrip for my [id number] thank you Juan Carlos Lopez /justine/ Magnus Sanderson RN Registered Nurse Signed: 02/24/2021 09:45
--- OUTSIDE RECORDS SUMMARY | 2022-02-03 00:35 | XMS_ITS | Encounter Summary ---
:1950 Author Organization [facility] Address [address] [place] [address] Support Name Relationship Address Phone LORI HOPKINS Unavailable [address] [facility] [place] [address] LORI HOPKINS Unavailable [address] [facility] [phone] [place] [address] Insurance Providers: All historical and current Section Date Range: From patient's date of to the date document was created.This section includes the names of all active insurance providers for the patient. Insurance Type of Plan Start of End of Group Member Insurance Policy P atient's Provider Coverage Name Policy Policy Number ID Provider's Silva's Relationship Coverage Coverage Telephone Name to Policy Number Silva ANTHEM PREFERRED STAND May 08 [id number] PROVIDER SHIVA 2010 [id number] RIAN MILLAN FEDERAL ORGANIZAT SELF ION (PPO) [place]BS [place] PREFERRED STAND May 08 [id number] [phone] JAMES CE PATIENT FEP PROVIDER SHIVA 2010 [id number] RIAN MILLAN ORGANGERMANAT INDIV ION (PPO) IDUAL BCBS OF PREFERRED STAND May 08 [id number] [phone] JAMES CE PATIENT MASS PROVIDER SHIVA 2010 87 3 RIAN MILLAN FEDERAL ORGANIZAT SELF ION (PPO) BCBS OF PREFERRED STAND May 08 [id number] [phone] JAMES CE PATIENT MASS FEP PROVIDER SHIVA 2010 87 6 RIAN MILLAN ORGANIZAT SELF ION (PPO) BCBS OF DENTAL STAND May 08, DENTAL [id number] [phone] SANDEEP, PATIENT MASS FEP INSURANCE SHIVA 2010 87 6 RIAN DENTAL [place] OF [place] MEDICARE FEP Dec 06 [id number] SANDEEP PATIENT FEP SECONDARY STAND 2019 87 [phone] RIAN MILLAN (NO B SHIVA EXC) MEDSE C CARELIONEL PRESCRIPT FEP Dec 06, [id number] SANDEEP PATIENT FEP ION ONLY 2013 0 [phone] RIAN MILLAN CARELIONEL PRESCRIPT May 08, [id number] [phone] EDUARDO MATTHEW PATIENT FEP ION 2011 0 87 1 RIAN MILLAN PRESCRIPT CAREM May 08, [id number] [phone] EDUARDO MATTHEW, PATIENT FEP BCBS ION ARK 2011 0 87 1 RIAN FEPRX PLAN CAR[place]ARK PRESCRIPT May 08, [id number] [phone] EDUARDO ENCEstella PATIENT FEPRX PLAN ION 2010 0 [id number] 331 RIAN MILLAN-F PRESCRIPT FEPRX May 08, [id number] [phone] LA KVNG PATIENT EP BCBS ION /PT D 2010 0 87 1 RIAN MILLAN [facility] May 18, [id number] [phone] JAMES CE, PATIENT RE JONATAN AL 2003 32 7 RIAN CE ORGANIZ EXPRESS PRESCRIPT CONNE May 18, [id number] [phone] JAMES CE, PATIENT SCRIPTS ION CTICA 2002 [id number] 7 RIAN ([id number]) RE MEDICARE MEDICARE PART Oct 06, PART A [id number] JAMES CE, PATIENT (WNR) (M) A 2012 UP33 2 [place] MEDICARE MEDICARE PART Oct 06, PART B [id number] JAMES CE, PATIENT (WNR) (M) B 2012 UP33 2 [place] MEDICARE MEDICARE PART Oct 06, PART A [id number] JAMES CE, PATIENT (WNR) (M) A 2013 UP33 00 [place] MEDICARE MEDICARE PART Oct 06, PART B [id number] JAMES CE, PATIENT (WNR) (M) B 2013 UP33 00 [place] MEDICARE MEDICARE PART Oct 06, PART A [id number] Lisa HOPKINS (WNR) (M) A 2012 UP33 [id number] [place] MEDICARE MEDICARE PART Oct 06, PART A [id number] JAMES CE, PATIENT (WNR) (M) A 2012 UP33 7 [place] MEDICARE MEDICARE PART Oct 06, PART B [id number] [phone] JAMES CE, PATIENT (WNR) (M) B 2012 UP33 7 RIAN MEDICARE MEDICARE PART Oct 06, PART B [id number] Lisa HOPKINS ATIENT (WNR) (M) B 2012 UP33 [phone] RIAN MEDICARE MEDICARE PART Dec 06, PART D [id number] 800 SANDEEP, P ATIENT PART D (M) D 2018 UP33 [phone] RIAN (WNR) MEDICARE MEDICARE PART Oct 06, PART D [id number] JAMES CE, PATIENT PART D (M) D 2012 UP33 7 RIAN (WNR) MEDICARE PRESCRIPT PART Oct 06, PART D [id number] [phone] LAWRE NCE, PATIENT PART D ION D 2012 32A 0 RIAN (WNR) MEDICARE PRESCRIPT PART Oct 06, PART D [id number] [id number] LAWRE NCE, PATIENT PART D ION D 2012 UP33 0 RIAN (WNR) Selected Encounter This section includes the information on record at [place] for the Encounter. Date/Time Encounter Type Encounter Reason Provider Source Description Mar 11, 2021 SELF-MGMT EDUC SLEEP MEDICINE ICD-10-CM G47.33 KARISSACIARRA Lomax 11:00 AM & TRAIN 1 PT Obstructive sleep apnea (adult) (pediatric) with Provider Comments: Obstructive Sleep Apnea (Adult) (Pediatric) IHE Encounter Template Text not used by [place] Assessments - Encounter Diagnoses This section includes the primary and secondary diagnoses documented for the Encounter. Date/Time Primary/Secondary Diagnosis Name Provider Source Diagnosis Mar 11, 2021 PRIMARY Obstructive sleep KARISSAMITCHELL JARVIS LD 11:34 AM apnea (adult) (pediatric) Plan of Treatment: Future Appointments (+ 6 months) and Future Tests (+/- 45 days) The Plan of Treatment section includes future care activities for the patient from all [place] treatmentfacilities. This section includes future appointments and future orders which are active, pending orscheduled.Future Appointments This section includes appointments that were scheduled to occur 6 months from the date of the Encounter, up to a maximum of 20 appointments. The data comes from all [place] treatment facilities. Appointment Date/Time Appointment Type Appointment Facili ty Name Mar 31, 2021 02:00 PM AM[place]UL[place]ORY [place] [facility] [place] [facility] Apr 09, 2021 01:00 PM AM[place] [facility] [place] [facility] Apr 13, 2021 02:00 PM AMBULATORY - [place] [facility] [place] [facility] Apr 13, 2021 02:30 PM AMBULATORY - [facility] Apr 21, 2021 11:00 AM AMBULATORY [facility] Apr 22, 2021 01:00 PM AMBULATORY - REHAB [facility] May 03, 2021 01:45 PM AM[place]UL[place]ORY [place] [facility] [place] [facility] May 05, 2021 03:00 PM AMBULATORY - [place] [facility] [place] [facility] Jun 01, 2021 02:00 PM AMBULATORY - PSYCHIATRY [place] Jun 02, 2021 12:30 PM AMBULATORY [facility] Jun 04, 2021 12:30 PM AMBULATORY [facility] Jun 08, 2021 02:00 PM [facility] [place] [facility] Jun 16, 2021 02:00 PM AMBULATORY [facility] Jun 18, 2021 01:00 PM AM[place]UL[place]ORY [place] [facility] [place] [facility] Jun 22, 2021 02:00 PM AMBULATORY [facility] Jun 23, 2021 01:00 PM [facility] [place] [facility] [place] [facility] Jul 07, 2021 11:00 AM AMBULATORY - MEDICINE [place] Jul 13, 2021 02:00 PM AMBULATORY [facility] Jul 20, 2021 02:30 PM AMBULATORY [facility] Aug 05, 2021 02:00 PM AMBULATORY [facility] Social History: Smoking Status (Most current) and Tobacco Use (All prior to encounter date) This section includes the most current, and the historical, smoking and tobacco-related health factors from the [place] facility where the Encounter took place.Current Smoking Status This section includes the most current smoking, or tobacco-related health factor, from the [place] facility where the Encounter took place. Date/Time Current Smoking Status [facility] September 17, 2020 02:00 PM VA-TOBACCO FORMER USER [facility] Tobacco Use History This section includes a history of the smoking, or tobacco- related health factors, that were collected on or before the date of the Encounter. The data comes from the [place] facility where the Encounter took place. Date/Time Smoking Status/Tobacco Use Comment Ercia crawford September 17, 2020 02:00 PM VA-TOBACCO QUIT 15 YRS OR [facility] Jan 10, 2020 02:00 PM VA-TOBACCO FORMER USER [facility] Jan 10, 2020 02:00 PM VA-TOBACCO QUIT 15 YRS OR [place] MORE Mar 23, 2018 02:31 PM VA-TOBACCO FORMER USER [facility] Mar 23, 2018 02:31 PM VA-TOBACCO QUIT 15 YRS OR [place] MORE September 19, 2017 01:43 PM QUIT TOBACCO USE > 7 YEARS [place] September 15, 2016 01:21 PM QUIT TOBACCO USE > 7 YEARS [place] quit 40 years ago May 12, 2015 10:44 AM QUIT TOBACCO USE > 7 YEARS [place] Dec 27, 2006 10:00 AM QUIT TOBACCO USE > 7 YEARS [place] Dec 26, 2005 08:41 AM QUIT TOBACCO USE 1-7 YEARS [place] Aug 11, 2005 08:42 AM QUIT TOBACCO USE IN [facility] Dec 09, 2004 08:20 AM QUIT TOBACCO USE IN PAST [facility] 2003Apr 02, 2004 08:07 AM QUIT TOBACCO USE IN PAST [facility] Quit several wks ago Jun 02, 2003 01:48 PM CURRENT SMOKER RADHA Reece States ocassionally Jan 31, 2002 01:44 PM HISTORY OF SMOKING [place] [facility] stopped tobacco 1 year ago Jan 31, 2002 01:44 PM QUIT TOBACCO USE 1-7 YEARS [place] Apr 25, 2001 03:26 PM NON-TOBACCO USER MATHEUS JONES Stopped tobacco 3 years ago September 12, 2000 03:24 PM HISTORY OF SMOKING [place] [facility] Quit cigaretts 2 years ago Encounter Notes: All associated encounter notes This section contains the clinical notes associated to the Encounter. Date/Time Encounter Note(s) Provider Source Mar 11, 2021 11:31 AM SLEEP MEDICINE CONSULT: MITCHELL HANCOCK [facility] TITLE: SLEEP STUDY/CONSULT REPORT STANDARD TITLE: SLEEP MEDICINE CONSULT DATE OF NOTE: MAR 11, 2021@11:31 ENTRY DATE: MAR 11, 2021@11:31:36 AUTHOR: MITCHELL HANCOCK EXP COSIGNER: URGENCY: STATUS: COMPLETED HOME TEST Provider recommended for dx sleep apnea G47.33 Patient is currently using non VA PAP. Does not know the pressure. Would like to start getting VA equipment, his machine is ne wer but does not think it's working correctly. Type of Education: Individual Teaching Methods used: [...] are safe and free from defects. Unit [id number]#[id number] Patient came to the [facility] clinic for initial 30 mi nute instruction of their portable sleep test. Topics included the rationale for testing, the health risks associated with untreated sleep apnea and the av ailable treatment options. Set up of the equipment demo nstrated, possible problems and questions addressed. Equipment will be returned by mail. /justine/ CECILIA MOREL DIAMOND FINISHING SUPERVISOR Signed: 03/11/2021 11:33
--- OUTSIDE RECORDS SUMMARY | 2022-02-03 00:36 | XMS_ITS | Encounter Summary ---
:1950 Author Organization Department [facility] rs Address [address] [place] [address] Support Name Relationship Address Phone LORI HOPKINS Unavailable [address] [place] [address] [place] [address] LORI HOPKINS Unavailable [address] [place] [address] [place] [address] Insurance Providers: All historical and current Section [...] Number Silva JARRED PREFERRED STAND May 08 [id number] PROVIDER SHIVA 2010 [id number] RIAN MILLAN FEDERAL ORGANIZAT SELF ION (PPO) BCBS [place] PREFERRED STAND May 08 [id number] [phone] JAMES CE PATIENT FEP PROVIDER SHIVA 2010 [id number] RIAN MILLAN ORGANGERMANAT INDIV ION (PPO) IDUAL BCBS OF PREFERRED STAND May 08 [id number] [phone] JAMES CE PATIENT MASS PROVIDER SHIVA 2010 87 3 RIAN MILLAN FEDERAL ORGANIZAT SELF ION (PPO) BCBS OF PREFERRED STAND May 08 [id number] [phone] JAMES CE PATIENT MASS FEP PROVIDER SHIVA 2010 87 6 RIAN MILLAN ORGANIZAT SELF ION (PPO) BCBS OF DENTAL STAND May 08, DENTAL [id number] [phone] SANDEEP, PATIENT MASS FEP INSURANCE SHIVA 2010 87 6 RIAN DENTAL BCBS OF [place] MEDICARE FEP Dec 06 [id number] SANDEEP PATIENT FEP SECONDARY STAND 2019 [id number] [phone] RIAN MILLAN (NO B SHIVA EXC) MEDSE C CAREMARK PRESCRIPT FEP Dec 06, [id number] SANDEEP PATIENT FEP ION ONLY 2014 0 [phone] RIAN MILLANMARK PRESCRIPT May 08, [id number] [phone] EDUARDO ENCEstella PATIENT FEP ION 2011 0 87 1 RIAN MILLAN PRESCRIPT CAREM May 08, [id number] [phone] EDUARDO ENCEstella, PATIENT FEP BCBS ION ARK 2011 0 87 1 RIAN FEPRX PLAN CAREMARK PRESCRIPT May 08, [id number] [phone] LAWR ENCE PATIENT FEPRX PLAN ION 2011 0 87 331 RIAN MILLAN-F PRESCRIPT FEPRX May 08, [id number] [phone] LA JENENCE PATIENT EP BCBS ION /PT D 2010 0 87 1 RIAN MILLAN [facility] May 18, [id number] [phone] JAMES CE, PATIENT RE JONATAN AL 2003 32 7 RIAN CE ORGANIZ EXPRESS PRESCRIPT CONNE May 18, [id number] [phone] JAMES CE, PATIENT SCRIPTS ION CTICA 2003 [id number] 7 RIAN ([id number]) RE MEDICARE MEDICARE PART Oct 06, PART A [id number] JAMES CE, PATIENT (WNR) (M) A 2012 UP33 2 RIAN MEDICARE MEDICARE PART Oct 06, PART B [id number] JAMES CE, PATIENT (WNR) (M) B 2012 UP33 2 RIAN MEDICARE MEDICARE PART Oct 06, PART A [id number] [phone] JAMES CE, PATIENT (WNR) (M) A 2013 UP33 00 [place] MEDICARE MEDICARE PART Oct 06, PART B [id number] [id number] JAMES CE, PATIENT (WNR) (M) B 2013 UP33 00 [place] MEDICARE MEDICARE PART Oct 06, PART A [id number] Lisa HOPKINS (BRODY) (M) A 2012 UP33 [phone] RIAN MEDICARE MEDICARE PART Oct 06, PART B [id number] 800 Lisa HOPKINS (WNR) (M) B 2012 UP33 [phone] RIAN MEDICARE MEDICARE PART Oct 06, PART B [id number] [phone] JAMES CE, PATIENT (WNR) (M) B 2012 UP33 7 RIAN MEDICARE MEDICARE PART Oct 06, PART A [id number] [phone] JAMES CE, PATIENT (WNR) (M) A 2012 UP33 7 RIAN MEDICARE MEDICARE PART Dec 06, PART D [id number] Lisa HOPKINS ATIENT PART D (M) D 2018 UP33 [phone] RIAN (WNR) MEDICARE MEDICARE PART Oct 06, PART D [id number] JAMES CE, PATIENT PART D (M) D 2012 UP33 7 RIAN (WNR) MEDICARE PRESCRIPT PART Oct 06, PART D [id number] LAWRE NCE, PATIENT PART D ION D 2012 32A 0 RIAN (WNR) MEDICARE PRESCRIPT PART Oct 06, PART D [id number] LAWRE NCE, PATIENT PART D ION D 2012 UP33 0 RIAN (WNR) Selected Encounter This section includes the information on record at [place] for the Encounter. Date/Time Encounter Type Encounter Description Reason Provider Source Feb 24, 2021 03:11 Outpatient Encounter OPTOMETRY PM IHE Encounter Template Text not used by [place] Plan of Treatment: Future Appointments (+ 6 [...] ty Name Mar 11, 2021 11:00 AM [facility] Mar 31, 2021 02:00 PM [facility] 09, 2021 01:00 [facility] Apr 13, 2021 02:00 PM [facility] Apr 13, 2021 02:30 PM AMBULATORY [place]ATRY [place] Apr 21, 2021 11:00 AM AMBULATORY - MEDICINE [place] Apr 22, 2021 01:00 PM AMBULATORY - REHAB MEDICINE [facility] May 03, 2021 01:45 PM AMBULATORY - [place]IC[place] [facility] [place] [facility] May 05, 2021 03:00 PM AMBULATORY - [place] [facility] Jun 01, 2021 02:00 PM AMBULATORY - [place]CHIATRY [place] Jun 02, 2021 12:30 PM AMBULATORY - [place]CHIATRY [place] Jun 04, 2021 12:30 PM AMBULATORY - [place]CHIATRY [place] Jun 08, 2021 02:00 PM AMBULATORY - [place]HAB [place] [facility] Jun 16, 2021 02:00 PM AMBULATORY - [place]CHIATRY [place] Jun 18, 2021 01:00 PM AMBULATORY - [place] [facility] [place] [facility] Jun 22, 2021 02:00 PM AMBULATORY [place]IATRY [place] Jun 23, 2021 01:00 PM AMBULATORY - [place] [facility] [place] [facility] Jul 07, 2021 11:00 AM AMBULATORY - MEDICINE [place] Jul 13, 2021 02:00 PM AMBULATORY [place]CHIATRY [place] Jul 20, 2021 02:30 PM AMBULATORY [facility] Encounter Notes: All associated encounter notes This section contains the clinical notes associated to the Encounter. Date/Time Encounter Note(s) Provider Source Feb 24, 2021 03:11 PM OPTOMETRY TELEPHONE ENCOUNTER NOTE: KELSEA ZAMORA [place] [facility] PANDEY LOCAL TITLE: OPTOMETRY TELEPHONE NOTE [facility] STANDARD TITLE: OPTOMETRY TELEPHONE ENCOUNTER NO TE DATE OF NOTE: FEB 24, 2021@15:11 ENTRY DATE: FEB 24, 2021@15:11:47 AUTHOR: KELSEA ZAMORA EXP COSIGNER: URGENCY: STATUS: COMPLETED Called patient and reschedule optometry appointm ent that was cancelled by clinic for 06/21/2021 new appt scheduled for 03/2022 @ 1pm /justine/ KELSEA ZAMORA INTERNATIONAL PROJECT ENGINEER Signed: 02/24/2021 15:12
--- OUTSIDE RECORDS SUMMARY | 2022-02-03 00:36 | XMS_ITS ---
:1950 Author Organization Department [facility] rs Address [address] [place] [address] Support Name Relationship Address Phone LORI HOPKINS Unavailable [address] [place] [address] [phone] 6 [place] [address] LORI HOPKINS Unavailable [address] [facility] [phone] 8 [place] [address] Insurance Providers: All historical and current Section [...] Number Silva JARRED PREFERRED STAND May 08 [id number] PROVIDER SHIVA 2011 [id number] RIAN MILLAN FEDERAL ORGANIZAT SELF ION (PPO) BCBS [place] PREFERRED STAND May 08 [id number] [phone] JAMES CE PATIENT FEP PROVIDER SHIVA 2010 87 123 RIAN MILLAN ORGANGERMANAT INDIV ION (PPO) IDUAL BCBS OF PREFERRED STAND May 08 [id number] [phone] JAMES CE PATIENT MASS PROVIDER SHIVA 2010 87 3 RIAN MILLAN FEDERAL ORGANIZAT SELF ION (PPO) BCBS OF PREFERRED STAND May 08 [id number] [phone] JAMES CE PATIENT MASS FEP PROVIDER SHIVA 2010 87 6 RIAN MILLAN ORGANIZAT SELF ION (PPO) BCBS OF DENTAL STAND May 08, DENTAL [id number] [phone] SANDEEP, PATIENT MASS FEP INSURANCE SHIVA 2010 87 6 RIAN DENTAL BCBS OF [place] MEDICARE FEP Dec 06 [id number] 800 SANDEEP PATIENT FEP SECONDARY STAND 2019 87 [phone] RIAN MILLAN (NO B SHIVA EXC) MEDSE C CAREMARK PRESCRIPT FEP Dec 06, [id number] SANDEEP PATIENT FEP ION ONLY 2014 0 [phone] RIAN MILLAN CARELIONEL PRESCRIPT May 08, [id number] [phone] EDUARDO MATTHEW PATIENT FEP ION 2011 0 87 1 RIAN MILLAN PRESCRIPT CAREM May 08, [id number] [phone] EDUARDO ENCEstella, PATIENT FEP BCBS ION ARK 2011 0 87 1 RIAN FEPRX PLAN CAREMARK PRESCRIPT May 08, [id number] [phone] LAWR ENCE PATIENT FEPRX PLAN ION 2011 0 87 331 RIAN MILLAN-F PRESCRIPT FEPRX May 08, [id number] [phone] LA WRENCE PATIENT EP BCBS ION /PT D 2010 0 87 1 RIAN MILLAN [facility] May 18, [id number] [phone] JAMES CE, PATIENT RE [facility] 2003 32 7 RIAN CE ORGANIZ EXPRESS PRESCRIPT CONNE May 18, [id number] [phone] JAMES CE, PATIENT SCRIPTS ION CTICA 2003 [id number] 7 RIAN ([id number]) RE MEDICARE MEDICARE PART Oct 06, PART B [id number] JAMES CE, PATIENT (WNR) (M) B 2012 UP33 2 [place] MEDICARE MEDICARE PART Oct 06, PART A [id number] [id number] JAMES CE, PATIENT (WNR) (M) A 2013 UP33 00 [place] MEDICARE MEDICARE PART Oct 06, PART A [id number] 800 Lisa HOPKINS [place] (WNR) (M) A 2012 UP33 [id number] [place] MEDICARE MEDICARE PART Oct 06, PART B [id number] [phone] JAMES CE, PATIENT (WNR) (M) B 2013 UP33 00 [place] MEDICARE MEDICARE PART Oct 06, PART A [id number] JAMES CE, PATIENT (WNR) (M) A 2012 UP33 7 [place] MEDICARE MEDICARE PART Oct 06, PART B [id number] [phone] JAMES CE, PATIENT (WNR) (M) B 2012 UP33 7 RIAN MEDICARE MEDICARE PART Oct 06, PART B [id number] 800 Lisa HOPKINS (WNR) (M) B 2012 UP33 [phone] RIAN MEDICARE MEDICARE PART Oct 06, PART A [id number] [id number] JAMES CE, PATIENT (WNR) (M) A 2012 UP33 2 RIAN MEDICARE MEDICARE PART Dec 06, PART D [id number] Lisa HOPKINS ATIENT PART D (M) D 2018 UP33 [phone] RIAN (WNR) MEDICARE MEDICARE PART Oct 06, PART D [id number] [phone] JAMES CE, PATIENT PART D (M) D 2012 UP33 7 RIAN (WNR) MEDICARE PRESCRIPT PART Oct 06, PART D [id number] LAWRE NCE, PATIENT PART D ION D 2012 32A 0 RIAN (WNR) MEDICARE PRESCRIPT PART Oct 06, PART D [id number] [phone] LAWRE NCE, PATIENT PART D ION D 2012 UP33 0 RIAN (WNR) Selected Encounter This section includes the information on record at [place] for the Encounter. Date/Time Encounter Type Encounter Reason Provider Source Description Feb 18, 2021 11:32 Outpatient [facility] H[facility],GERRI PASCUAL K AM Encounter - IND IHE Encounter Template Text not used by [place] Plan of Treatment: Future Appointments (+ 6 months) and Future Tests (+/- 45 days) The Plan of Treatment section includes future care activities for the patient from all [place] treatmentfacilities. This section includes future appointments and future orders which are active, pending orscheduled.Future Appointments This section includes appointments that were scheduled to occur 6 months from the date of the Encounter, up to a maximum of 20 appointments. The data comes from all [place] treatment facilities. Appointment Date/Time Appointment Type Appointment Facili ty Name Mar 11, 2021 11:00 AM AMBULATORY - MEDICINE [place] Mar 31, 2021 02:00 PM [facility] Apr 09, 2021 01:00 PM [facility] Apr 13, 2021 02:00 PM [facility] Apr 13, 2021 02:30 PM AMBULATORY - PSYCHIATRY [place] Apr 21, 2021 11:[address] [facility] Apr 22, 2021 01:00 PM [facility] May 03, 2021 01:45 PM [facility] [place] May 05, 2021 03:[address] [place] Jun 01, 2021 02:00 PM AMBULATORY PSYCHIATRY [place] Jun 02, 2021 12:30 PM AMBULATORY PSYCHIATRY [place] Jun 04, 2021 12:30 PM AMBULATORY PSYCHIATRY [place] Jun 08, 2021 02:[address] [facility] [place] Jun 16, 2021 02:00 PM AMBULATORY [facility] Jun 18, 2021 01:00 PM [facility] [place] Jun 22, 2021 02:00 PM AMBULATORY [facility] Jun 23, 2021 01:[address] [place] Jul 07, 2021 11:00 AM AMBULATORY MEDICINE [place] Jul 13, 2021 02:00 PM AMBULATORY [facility] Jul 20, 2021 02:30 PM AMBULATORY [facility] Encounter Notes: All associated encounter notes This section contains the clinical notes associated to the Encounter. Date/Time Encounter Note(s) Provider Source Feb 18, 2021 12:00 PM [facility]URE M[facility]AGING: [facility]: M[facility]AL HEALTH SECURE MESSAGING [facility] STANDARD TITLE: MENTAL HEALTH SECURE MESSAGING DATE OF NOTE: FEB 18, 2021@12:00:55 ENTRY DATE: FEB 18, 2021@12:00:56 AUTHOR: AARON HERRMANN EXP COSIGNER: URGENCY: STATUS: COMPLETED ------Original Message Sent: 02/18/2021 11:42 AM From: RIAN HOPKINS To: JIMENEZ_ZA,Monie_SIDDHARTH,Estella_DERRICK,DEMETRA_SOPC% Subject: Appointment O.k. DR. Herrmann /justine/ AARON HERRMANN PSYD Clinical Psychologist Signed: 02/18/2021 12:00 Feb 18, 2021 11:32 AM MENTAL HEALTH SECURE MESSAGING: AARON HERRMANN [place] [facility] LOCAL TITLE: MENTAL HEALTH SECURE MESSAGING [facility] STAND[facility] TITLE: MENTAL HEALTH SECURE MESSAGING DATE OF NOTE: FEB 18, 2021@11:32:13 ENTRY DATE: FEB 18, 2021@11:32:14 AUTHOR: AARON HERRMANN EXP COSIGNER: URGENCY: STATUS: COMPLETED ------Original Message Sent: 02/18/2021 11:28 AM From: RIAN HOPKINS To: [email or web address]_[email or web address],Monie_SIDDHARTH,Estella_DERRICK,DEMETRA_SOPC% Subject: Appointment Dr. Herrmann just to let you know I have a ap pointment with Dr Oliveira at 2;30 p.m. is that going to interfere with are appointment. Sigifredo Rangel [id number] ------Original Message Sent: 02/18/2021 11:32 AM From: AARON HERRMANN To: RIAN HOPKINS Subject: Appointment Sigifredo Moya for letting me know. If you are okay with having a 30-minute appointment for that day, we can keep the appointmen t as is. Let me know if you would like to change the appointment. Sincerely, Aaron Herrmann PsyD /justine/ AARON HERRMANN PSYD Clinical Psychologist Signed: 02/18/2021 11:32
--- OUTSIDE RECORDS SUMMARY | 2022-02-03 00:36 | XMS_ITS | Encounter Summary ---
:1950 Author Organization [facility] Address [address] [place] [id number] Support Name Relationship Address Phone LORI HOPKINS Unavailable [address] [facility] [phone] [place] [address] LORI HOPKINS Unavailable [address] [facility] [phone] [place] [address] Insurance Providers: All historical and current Section [...] Number Silva ANTHZARA PREFERRED STAND May 08 [id number] PROVIDER SHIVA 2011 [id number] [phone] RIAN MILLAN FEDERAL ORGANIZAT SELF ION (PPO) BCBS [place] PREFERRED STAND May 08 [id number] [phone] JAMES CE PATIENT FEP PROVIDER SHIVA [phone] RIAN MILLAN ORGANGERMANAT INDIV ION (PPO) IDUAL BCBS OF PREFERRED STAND May 08 [id number] [phone] JAMES CE PATIENT MASS PROVIDER SHIVA 2010 87 3 RIAN MILLAN FEDERAL ORGANIZAT SELF ION (PPO) BCBS OF PREFERRED STAND May 08 [id number] [phone] JAMES CE PATIENT MASS FEP PROVIDER SHIVA 2010 87 6 RIAN MILLAN ORGANIZAT SELF ION (PPO) BCBS OF DENTAL STAND May 08, DENTAL [id number] [phone] SANDEEP, PATIENT MASS FEP INSURANCE SHIVA 2010 87 6 RIAN DENTAL [place] MEDIC[place] FEP Dec 06 [id number] 800 SANDEEP PATIENT FEP SECONDARY STAND 2019 [phone] RIAN MILLAN (NO B SHIVA EXC) MEDSE C CAREMARK PRESCRIPT FEP Dec 06, [id number] SANDEEP PATIENT FEP ION ONLY 2014 0 [phone] RIAN MILLAN CARELIONEL PRESCRIPT May 08, [id number] [phone] EDUARDO MATTHEW PATIENT FEP ION 2011 0 87 1 RIAN MILLAN PRESCRIPT CAREM May 08, [id number] [phone] EDUARDO ENCEstella, PATIENT FEP BCBS ION ARK 2011 0 87 1 RIAN FEPRX PLAN CAR[place]ARK PRESCRIPT May 08, [id number] [phone] [phone] ENCE PATIENT FEPRX PLAN ION 2011 0 [phone] RIAN MILLAN-F PRESCRIPT FEPRX May 08, [id number] [phone] LA WRENCE PATIENT EP BCBS ION /PT D 2010 0 87 1 RIAN MILLAN [facility] May 18, [id number] [phone] JAMES CE, PATIENT RE [place] 2003 32 7 RIAN CE ORGANIZ EXPRESS PRESCRIPT CONNE May 18, [id number] [phone] JAMES CE, PATIENT SCRIPTS ION CTICA 2003 [id number] RIAN ([id number]) RE MEDICARE MEDICARE PART Oct 06, PART B [id number] Lisa HOPKINS (WNR) (M) B 2012 UP33 [phone] JOSEPH MEDICARE MEDICARE PART Oct 06, PART A [id number] [phone] JAMES CE, PATIENT (WNR) (M) A 2013 UP33 00 [place] MEDICARE MEDICARE PART Oct 06, PART B [id number] JAMES CE, PATIENT (WNR) (M) B 2012 UP33 00 [place] MEDICARE MEDICARE PART Oct 06, PART A [id number] [id number] JAMES CE, PATIENT (WNR) (M) A 2013 UP33 2 [place] MEDICARE MEDICARE PART Oct 06, PART B [id number] JAMES CE, PATIENT (WNR) (M) B 2013 UP33 7 RIAN MEDICARE MEDICARE PART Oct 06, PART A [id number] [id number] JAMES CE, PATIENT (WNR) (M) A 2013 UP33 7 RIAN MEDICARE MEDICARE PART Oct 06, PART B [id number] JAMES CE, PATIENT (WNR) (M) B 2012 UP33 2 RIAN MEDICARE MEDICARE PART Oct 06, PART A [id number] Lisa HOPKINSIENT (WNR) (M) A 2012 UP33 [phone] RIAN MEDICARE MEDICARE PART Dec 06, PART D [id number] Lisa HOPKINS ATIENT PART D (M) D 2018 UP33 [phone] RIAN (WNR) MEDICARE PRESCRIPT PART Oct 06, PART D [id number] LAWRE NCE, PATIENT PART D ION D 2012 [id number] 0 RIAN (WNR) MEDICARE PRESCRIPT PART Oct 06, PART D [id number] [id number] LAWRE NCE, PATIENT PART D ION D 2012 UP33 0 RIAN (WNR) MEDICARE MEDICARE PART Oct 06, PART D [id number] [phone] JAMES CE, PATIENT PART D (M) D 2012 UP33 7 RIAN (WNR) Selected Encounter This section includes the information on record at [facility] for the Encounter. Date/Time Encounter Type Encounter Reason Provider Source Description Feb 12, 2021 OFFICE O/P EST MENTAL HEALTH ICD-10-CM F43.10 ST JONE LEAVITT 01:30 PM HI 40-54 MIN CLINIC - IND Post-traumatic EN G stress disorder, unspecified with Provider Comments: Posttraumatic stress disorder ([facility] [id number]) IHE Encounter Template Text not used by VA Assessments - Encounter Diagnoses This section includes the primary and secondary diagnoses documented for the Encounter. Date/Time Primary/Secondary Diagnosis Name Provider Source Diagnosis Feb 12, 2021 PRIMARY Post-traumatic EDY LEAVITT 07:30 PM stress disorder, N G unspecified Feb 12, 2021 SECONDARY Major depressive EDY LEAVITTE LD 07:30 PM disorder, single N G episode, unspecified Feb 12, 2021 SECONDARY Other chronic pain EDY LEAVITT [place] 07:30 PM N G Feb 12, 2021 SECONDARY Pathological EDY LEAVITT 07:30 PM gambling N G Feb 12, 2021 SECONDARY Restless legs EDY LEAVITT 07:30 PM syndrome N G Feb 12, 2021 SECONDARY Sleep apnea, EDY LEAVITT 07:30 PM unspecified N G Plan of Treatment: Future Appointments (+ 6 months) and Future Tests (+/- 45 days) The Plan of Treatment section includes future care activities for the patient [facility] [place] [facility]. This section includes future appointments and future orders which are active, pending orscheduled.Future Appointments This section includes appointments that were scheduled to occur 6 months from the date of the Encounter, up to a maximum of 20 appointments. The data comes from all [place] treatment facilities. Appointment Date/Time Appointment Type Appointment Facili ty Name Mar 11, 2021 11:00 AM AMBULATORY [facility] Mar 31, 2021 02:00 PM [facility]UL[place]ORY [place] [facility] [place] [facility] Apr 09, 2021 01:00 PM [place] [facility] [place] [facility] Apr 13, 2021 02:00 PM [facility] [place] [facility] Apr 13, 2021 02:30 PM [facility] Apr 21, 2021 11:00 AM AMBULATORY [facility] Apr 22, 2021 01:00 PM AMBULATORY - REHAB [facility] May 03, 2021 01:45 PM [place]UL[place]ORY [place] [facility] [place] [facility] May 05, 2021 03:00 PM [facility] [place] [facility] Jun 01, 2021 02:00 PM AMBULATORY [facility] Jun 02, 2021 12:30 PM [facility] Jun 04, 2021 12:30 PM [facility] Jun 08, 2021 02:00 PM [facility] [place] [place] [facility] Jun 16, 2021 02:00 PM [facility] Jun 18, 2021 01:00 PM AMBULATORY MEDICINE [place] [facility] [place] [facility] Jun 22, 2021 02:00 PM [facility] Jun 23, 2021 01:00 PM [facility] [place] [facility] Jul 07, 2021 11:00 AM AMBULATORY [facility] Jul 13, 2021 02:00 PM [facility] Jul 20, 2021 02:30 PM [facility] Social History: Smoking Status (Most current) and Tobacco Use (All prior to encounter date) This section includes the most current, and the historical, smoking and tobacco-related health factors from the [place] facility where the Encounter took place.Current Smoking Status This section includes the most current smoking, or tobacco-related health factor, from the [place] facility where the Encounter took place. Date/Time Current Smoking Status Comment Facility September 17, 2020 02:00 PM VA-TOBACCO FORMER USER [facility] Tobacco Use History This section includes a history of the smoking, or tobacco- related health factors, that were collected on or before the date of the Encounter. The data comes from the [place] facility where the Encounter took place. Date/Time Smoking Status/Tobacco Use Comment [facility] September 17, 2020 02:00 PM VA-TOBACCO QUIT 15 YRS OR [facility] Jan 10, 2020 02:00 PM VA-TOBACCO FORMER USER [facility] Jan 10, 2020 02:00 PM VA-TOBACCO QUIT 15 YRS OR [facility] Mar 23, 2018 02:31 PM VA-TOBACCO FORMER USER [facility] Mar 23, 2018 02:31 PM VA-TOBACCO QUIT 15 YRS OR [facility] September 19, 2017 01:43 PM QUIT TOBACCO USE > 7 YEARS [place] September 15, 2016 01:21 PM QUIT TOBACCO USE > 7 YEARS [place] AGO quit 40 years ago May 12, 2015 10:44 AM QUIT TOBACCO USE > 7 YEARS [place] Dec 27, 2006 10:00 AM QUIT TOBACCO USE > 7 YEARS [place] Dec 26, 2005 08:41 AM QUIT TOBACCO USE 1-7 YEARS [place] Aug 11, 2005 08:42 AM QUIT TOBACCO USE IN PAST [facility] Dec 09, 2004 08:20 AM QUIT TOBACCO USE IN PAST [facility] 2003Apr 02, 2004 08:07 AM QUIT TOBACCO USE IN PAST [facility] YEAR Quit several wks ago Jun 02, 2003 01:48 PM CURRENT SMOKER NIKOLAYEL D States ocassionally Jan 31, 2002 01:44 PM HISTORY OF SMOKING [place] stopped tobacco 1 year ago Jan 31, 2002 01:44 PM QUIT TOBACCO USE 1-7 YEARS [place] Apr 25, 2001 03:26 PM NON-TOBACCO USER NIKOLAYE LD Stopped tobacco 3 years ago September 12, 2000 03:24 PM HISTORY OF SMOKING [place] Quit cigaretts 2 years ago Encounter Notes: All associated encounter notes This section contains the clinical notes associated to the Encounter. Date/Time Encounter Note(s) Provider Source Feb 12, 2021 02:07 PM PSYCHIATRY NOTE: [facility] LOCAL TITLE: PSYCHIATRY NOTE STANDARD TITLE: PSYCHIATRY NOTE DATE OF NOTE: FEB 12, 2021@14:07 ENTRY DATE: FEB 12, 2021@14:07:17 AUTHOR: PEDRO LEAVITT EXP COSIGNER: URGENCY: STATUS: COMPLETED PSYCHIATRY NOTE Has ADDENDA 40 minutes for encounter, including chart review , interview, charting chart reviewed Pt again relatively stable. Some improvement in depression w current meds -- but again some ongoing symptoms. Some improv ement in ptsd sx's, in that he is less irritable -- but again some ongoing irri tability. Insomnia improved, but still a problem , some nightmares. Pt denies SI and violent ideation. Well organize d thoughts. No h/o psychotic sx's. No PI or delusi ons presented. Speech normal/fluent. Cognitive exam grossly intact. Barb[place] s interests. 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 Depression ([facility] [id number]) 2. Co-management 3. Tear of left rotator cuff 4. Posttraumatic stress disorder 5. Type 2 diabetes mellitus in obese 6. Mixed hyperlipidemia 7. Restless legs 8. Insomnia 9. Chronic pain 10. Herniated Disc * 11. Sleep apnea (SNOMED CT 99875279) 12. Gastroesophageal Reflux Disorder 13. Coronary artery disease (SNOMED CT 23706106) 14. Glaucoma 15. Osteoarthritis (SNOMED CT 677339518) 16. Essential hypertension (SNOMED CT 41753768) 17. Hypercholesterolemia (SNOMED CT 45818630) 18. Obesity Active Outpatient Medications (including Supplie s): Active Outpatient Medications Status 1) ATORVASTATIN CALCIUM 80MG TAB TAKE ONE TABLET BY ACTIVE MOUTH ONCE DAILY FOR CHOLESTEROL 2) BIMATOPROST 0.01% OPH SOLN INSTILL 1 DROP INT O EACH ACTIVE EYE AT BEDTIME TO REDUCE PRESSURE IN THE EYE 3) BRIMONIDINE 0.2%/TIMOLOL 0.5% OPH SOLN INSTIL L 1 DROP ACTIVE INTO THE LEFT EYE TWICE DAILY 4) CYCLOSPORINE 0.05% (PF) OPH EMUL 0.4ML INSTIL L 1 DROP ACTIVE INTO EACH EYE TWICE DAILY 5) DULOXETINE HCL 30MG EC CAP TAKE THREE CAPSULE S BY ACTIVE MOUTH ONCE DAILY FOR MOOD 6) INSULIN SYRINGE 0.5ML 31G 8MM USE 1 SYRINGE A CTIVE SUBCUTANEOUSLY TWICE DAILY FOR INSULIN INJECTIO NS 7) INSULIN,ASPART,HUMAN 100 UNIT/ML INJ INJECT 1 0 UNITS ACTIVE SUBCUTANEOUSLY EVERY MORNING 30 MINUTES BEFORE BREAKFAST NEEDED AND INJECT 15 UNITS EVERY EVENING 8) METOPROLOL TARTRATE 50MG TAB TAKE 1 TABLET(S) BY ACTIVE MOUTH TWICE DAILY 9) MIRTAZAPINE 15MG TAB TAKE ONE AND ONE-HALF TA BLETS BY ACTIVE MOUTH AT BEDTIME FOR DEPRESSION/MOOD 10) OMEPRAZOLE 20MG CAP,EC TAKE TWO CAPSULES BY MOUTH ACTIVE EVERY MORNING 30 MINUTES BEFORE BREAKFAST 11) TRIAMCINOLONE ACETONIDE 0.1% CREAM APPLY A T [...] CAP 200UNT BY MOUTH ACTIVE EVERY DAY 23 Total Medications pcp -- DR Landa outside [place] in [place] PAST PSYCH MED HX: prozac -- not help ambien -- has not taken for awhile amitriptyline -- has not take for awhile for didier n denies other psych meds hx zoloft -- not help effexor hydroxyzine -- not help sleep IMP: dsm-5 PTSD -- pt reports numerous [...] denied suicidal and violent ideation, but the [facility] information and number were reviewed w patient as a precaution. The patient also understands to call 911 or to go to ER in the ev ent of an emergency. I again discussed with the patient considering r esuming psychotherapy to help with PTSD symptoms and irritability. Patient pre viously had therapy with Dr. Herrmann. The patient is interested in another psycho therapy referral. I also offered pt CBT for insomnia -- pt decline d Again, continue cymabalta 90 mg daily -- partial response --augmenting w remeron After discussion we decided on another increase in remeron to 30 mg qhs to augment cymbalta and to help insomnia -- I reviewed s/e profile w pt including risk of sedation and wt gain -- we decided on slow dose increase to avoid s/e's consider wellbutrin, trintellix, vortioxetine if insuff reponse to cymbalta + remeron we again discussed options including prazosin or trazodone for insomnia/nightmares -- pt does not want trazodone -- did not help in past, and he does not want prazosin due to s/e profile; co nsider melatonin but hold off for now Because pt is prescribed narcotic for pain [...] for sleep apnea. Pt states uses cpap gambling -- recommended [place] rtc 2 mo for med f/u or sooner thr oa prn by estefani ortega Medication Reconciliation: Outpatient: Has the patient been taking medications as docu mented in the EMLR? YES: The patient has been taking medications as documented in the EMLR. Essential Medication List for Review used to co mplete this medication reconciliation. INCLUDED IN THIS LIST: Alphabetical list of act ashley outpatient prescriptions dispensed from this [facility] (local) an d dispensed from another VA or DoD facility (remote) as well as [...] whether with a VA or non-VA provider. Alcohol Use Screen (AUDIT-C): Alcohol Screen: SCREEN FOR ALCOHOL (AUDIT-C) An alcohol screening test (AUDIT-C) was negativ e (score=3). 1. How often did you have a drink containing al cohol in the past year? Two to three times per week 2. How many drinks containing alcohol did you h ave on a typical day when you were drinking in the past year? One or two drinks 3. How often did you have six or more drinks on one occasion in the past year? Never /justine/ PEDRO LEAVITT MD STAFF PSYCHIATRIST Signed: 02/12/2021 19:30 02/12/2021 ADDENDUM STATUS: COMPLETED Patient previously had therapy with Dr. Herrmann. The patient is interested in another psychotherapy referral for depression an d ptsd. I will forward this to Dr. Hyatt , the patient would like to resume therapy with Dr. Herrmann if possible. /justine/ PEDRO LEAVITT MD STAFF PSYCHIATRIST Signed: 02/12/2021 19:30 Receipt Acknowledged By: 02/24/2021 13:39 /justine/ Bradley Hyatt Psy.D. STAFF PSYCHOLOGIST 02/24/2021 ADDENDUM STATUS: COMPLETED Please schedule routine follow-up with Dr. Herrmann /justine/ Bradley Hyatt Psy.D. STAFF PSYCHOLOGIST Signed: 02/24/2021 13:40 Receipt Acknowledged By: * AWAITING SIGNATURE * EDITH TEJEDA
--- OUTSIDE RECORDS SUMMARY | 2022-02-03 00:36 | XMS_ITS ---
:1950 Author Organization [facility] rs Address [address] [place] [id number] Support Name Relationship Address Phone LORI OHPKINS Unavailable [address] [place] [address] [place] [address] LORI HOPKINS Unavailable [address] [place] [address] Insurance Providers: All historical and current Section [...] Number Silva JARRED PREFERRED STAND May 08 [id number] PROVIDER SHIVA 2011 [id number] RIAN MILLAN FEDERAL ORGANIZAT SELF ION (PPO) BCBS [place] PREFERRED STAND May 08 [id number] [phone] JAMES CE PATIENT FEP PROVIDER SHIVA 2010 87 123 RIAN MILLAN ORGANGERMANAT INDIV ION (PPO) IDUAL BCBS OF PREFERRED STAND May 08 [id number] [phone] JAMES CE PATIENT MASS PROVIDER SHIVA 2010 87 3 RIAN MILLAN FEDERAL ORGANIZAT SELF ION (PPO) BCBS OF PREFERRED STAND May 08 [id number] [phone] JAMES CE PATIENT MASS FEP PROVIDER SHIVA 2010 87 6 RIAN MILLAN ORGANIZAT SELF ION (PPO) BCBS OF DENTAL STAND May 08, DENTAL [id number] [phone] SANDEEP, PATIENT MASS FEP INSURANCE SHIVA 2010 87 6 RIAN DENTAL [place]BS OF [place] MEDICARE FEP Dec 06 [id number] 800 SANDEEP PATIENT FEP SECONDARY STAND 2019 [phone] RIAN MILLAN (NO B SHIVA EXC) MEDSE C CAREMARK PRESCRIPT FEP Dec 06, [id number] SANDEEP PATIENT FEP ION ONLY 2014 0 87 [phone] RIAN MILLAN CARELIONEL PRESCRIPT May 08, [id number] [phone] EDUARDO ENCEstella PATIENT FEP ION 2011 0 87 1 RIAN MILLAN PRESCRIPT CAREM May 08, [id number] [phone] EDUARDO ENCEstella, PATIENT FEP BCBS ION ARK 2011 0 87 1 RIAN FEPRX PLAN CAREMARK PRESCRIPT May 08, [id number] [phone] LAWR ENCE PATIENT FEPRX PLAN ION 2011 0 87 331 RIAN MILLAN-F PRESCRIPT FEPRX May 08, [id number] [phone] LA WRENCE PATIENT EP BCBS ION /PT D 2010 [address] [facility] May 18, [id number] [phone] JAMES CE, PATIENT RE [facility] 2003 32 7 RIAN CE ORGANIZ EXPRESS PRESCRIPT CONNE May 18, [id number] [phone] JAMES CE, PATIENT SCRIPTS ION CTICA 2003 [id number] 7 RIAN ([id number]) RE MEDICARE MEDICARE PART Oct 06, PART B [id number] JAMES CE, PATIENT (WNR) (M) B 2012 UP33 2 [place] MEDICARE MEDICARE PART Oct 06, PART A [id number] [phone] JAMES CE, PATIENT (WNR) (M) A 2013 UP33 00 [place] MEDICARE MEDICARE PART Oct 06, PART A [id number] 800 Lisa HOPKINS (WNR) (M) A 2012 UP33 [phone] [place] MEDICARE MEDICARE PART Oct 06, PART B [id number] [phone] JAMES CE, PATIENT (WNR) (M) B 2013 UP33 00 [place] MEDICARE MEDICARE PART Oct 06, PART A [id number] [id number] JAMES CE, PATIENT (WNR) (M) A 2013 UP33 7 [place] MEDICARE MEDICARE PART Oct 06, PART B [id number] [phone] JAMES CE, PATIENT (WNR) (M) B 2012 UP33 7 RIAN MEDICARE MEDICARE PART Oct 06, PART B [id number] Lisa HOPKINS ATIENT (WNR) (M) B 2012 UP33 [phone] RIAN MEDICARE MEDICARE PART Oct 06, PART A [id number] [id number] JAMES CE, PATIENT (WNR) (M) A 2012 UP33 2 RIAN MEDICARE MEDICARE PART Dec 06, PART D [id number] Lisa HOPKINS ATIENT PART D (M) D 2018 UP33 [phone] RIAN (WNR) MEDICARE MEDICARE PART Oct 06, PART D [id number] [phone] JAMES CE, PATIENT PART D (M) D 2012 UP33 7 RIAN (WNR) MEDICARE PRESCRIPT PART Oct 06, PART D [id number] [phone] LAWRE NCE, PATIENT PART D ION D 2012 32A 0 RIAN (WNR) MEDICARE PRESCRIPT PART Oct 06, PART D [id number] [phone] LAWRE NCE, PATIENT PART D ION D 2012 UP33 0 RIAN (WNR) Selected Encounter This section includes the information on record at [place] for the Encounter. Date/Time Encounter Type Encounter Description Reason Provider Source Feb 24, 2021 09:47 Outpatient Encounter PRIMARY CARE/MEDICINE AM IHE Encounter Template Text not used by [place] Plan of Treatment: Future Appointments (+ 6 months) and Future Tests (+/- 45 days) The Plan of Treatment section includes future care activities for the patient from all [place] treatmentfacilities. This section includes future appointments and future orders which are active, pending orscheduled.Future Appointments This section includes appointments that were scheduled to occur 6 months from the date of the Encounter, up to a maximum of 20 appointments. The data comes from all [place] treatment facilities. Appointment Date/Time Appointment Type Appointment Facili ty Name Mar 11, 2021 11:00 AM AMBULATORY MEDICINE [place] Mar 31, 2021 02:00 PM [facility] Apr 09, 2021 01:00 PM [facility] Apr 13, 2021 02:00 PM [facility] Apr 13, 2021 02:30 PM AMBULATORY PSYCHIATRY [place] Apr 21, 2021 11:00 AM AMBULATORY - MEDICINE [place] Apr 22, 2021 01:00 PM AMBULATORY - REHAB [facility] May 03, 2021 01:45 PM [place] [facility] May 05, 2021 03:00 PM AMBULATORY - [place] [facility] Jun 01, 2021 02:00 PM AMBULATORY [facility] Jun 02, 2021 12:30 PM AMBULATORY [facility] Jun 04, 2021 12:30 PM AMBULATORY [facility] Jun 08, 2021 02:00 PM [facility] [place] [facility] [place] [facility] Jun 16, 2021 02:00 PM AMBULATORY [facility] Jun 18, 2021 01:00 PM [place]UL[place] [facility] Jun 22, 2021 02:00 PM [facility] Jun 23, 2021 01:00 PM [facility] [place] [facility] Jul 07, 2021 11:00 AM AMBULATORY [facility]IC[facility] [place] Jul 13, 2021 02:00 PM AMBULATORY [facility] Jul 20, 2021 02:30 PM [facility] Encounter Notes: All associated encounter notes This section contains the clinical notes associated to the Encounter. Date/Time Encounter Note(s) Provider Source Feb 24, 2021 09:47 AM MEDICATION MGT NOTE: MAGNUS SANDERSON [facility] TITLE: OUTPATIENT MEDICATION REQUEST STANDARD TITLE: MEDICATION MGT NOTE DATE OF NOTE: FEB 24, 2021@09:47 ENTRY DATE: FEB 24, 2021@09:47:26 AUTHOR: MAGNUS SANDERSON COSIGNER: URGENCY: STATUS: COMPLETED Medication Request Date of Request: Feb Please renew and mail. BACLOFEN TAB 10MG TAKE ONE TABLET BY MOUTH ONCE DAILY FOR MUSCLE RIGIDITY Quantity: 90 Refills: Sonia /justine/ Magnus Sanderson RN Registered Nurse Signed: 02/24/2021 09:47 Receipt Acknowledged By: * AWAITING SIGNATURE * PETER CHONG
--- OUTSIDE RECORDS SUMMARY | 2022-02-03 00:36 | XMS_ITS | Encounter Summary ---
:1950 Author Organization Department [facility] rs Address [address] [place] [address] Support Name Relationship Address Phone LORI HOPKINS Unavailable [address] [place] [address] [place] [address] LORI HOPKINS Unavailable [address] [facility] [phone] [place] [address] Insurance Providers: All historical and current Section [...] Number Silva JARRED PREFERRED STAND May 08 [id number] PROVIDER SHIVA 2011 [id number] RIAN MILLAN FEDERAL ORGANIZAT SELF ION (PPO) BCBS [place] PREFERRED STAND May 08 [id number] [phone] JAMES CE PATIENT FEP PROVIDER SHIVA 2010 87 123 RIAN MILLAN ORGANGERMANAT INDIV ION (PPO) IDUAL BCBS OF PREFERRED STAND May 08 [id number] [phone] JAMES CE PATIENT MASS PROVIDER SHIVA 2010 87 3 RIAN MILLAN FEDERAL ORGANIZAT SELF ION (PPO) BCBS OF PREFERRED STAND May 08 [id number] [phone] JAMES CE PATIENT MASS FEP PROVIDER SHIVA 2010 87 6 RIAN MILLAN ORGANIZAT SELF ION (PPO) BCBS OF DENTAL STAND May 08, DENTAL [id number] [phone] SANDEEP, PATIENT MASS FEP INSURANCE SHIVA 2010 87 6 RIAN DENTAL BCBS OF [place] MEDICARE FEP Dec 06 [id number] 800 SANDEEP PATIENT FEP SECONDARY STAND 2019 [phone] RIAN MILLAN (NO B SHIVA EXC) MEDSE C CAREMARK PRESCRIPT FEP Dec 06, [id number] SANDEEP PATIENT FEP ION ONLY 2014 0 [phone] RIAN MILLAN CAR[place]ARK PRESCRIPT May 08, [id number] EDUARDO ENCEstella PATIENT FEP ION 2011 0 87 1 RIAN MILLAN PRESCRIPT CAREM May 08, [id number] [phone] EDUARDO ENCEstella, PATIENT FEP BCBS ION ARK 2011 0 87 1 RIAN FEPRX PLAN CAREMARK PRESCRIPT May 08, [id number] [phone] LAWR ENCE PATIENT FEPRX PLAN ION 2011 0 87 331 RIAN MILLAN-F PRESCRIPT FEPRX May 08, [id number] [phone] LA WRENCE PATIENT EP BCBS ION /PT D 2010 0 87 1 RIAN MILLAN [facility] May 18, [id number] [phone] JAMES CE, PATIENT RE [facility] 2003 32 7 RIAN CE ORGANIZ EXPRESS PRESCRIPT CONNE May 18, [id number] [phone] JAMES CE, PATIENT SCRIPTS ION CTICA 2003 [id number] RIAN ([id number]) RE MEDICARE MEDICARE PART Oct 06, PART A [id number] Lisa HOPKINS (WNR) (M) A 2012 UP33 [phone] JOSEPH MEDICARE MEDICARE PART Oct 06, PART B [id number] 800 Lisa HOPKINS (WNR) (M) B 2012 UP33 [phone] JO[place] MEDICARE MEDICARE PART Oct 06, PART A [id number] [id number] JAMES CE, PATIENT (WNR) (M) A 2013 UP33 00 [place] MEDICARE MEDICARE PART Oct 06, PART B [id number] [phone] JAMES CE, PATIENT (WNR) (M) B 2013 UP33 00 [place] MEDICARE MEDICARE PART Oct 06, PART A [id number] JAMES CE, PATIENT (WNR) (M) A 2013 UP33 2 [place] MEDICARE MEDICARE PART Oct 06, PART B [id number] JAMES CE, PATIENT (WNR) (M) B 2012 UP33 2 RIAN MEDICARE MEDICARE PART Oct 06, PART B [id number] [phone] JAMES CE, PATIENT (WNR) (M) B 2012 UP33 7 RIAN MEDICARE MEDICARE PART Oct 06, PART A [id number] [phone] JAMES CE, PATIENT (WNR) (M) A 2012 UP33 7 RIAN MEDICARE MEDICARE PART Dec 06, PART D [id number] Lisa HOPKINS ATIENT PART D (M) D 2018 UP33 [phone] RIAN (WNR) MEDICARE MEDICARE PART Oct 06, PART D [id number] [phone] JAMES CE, PATIENT PART D (M) D 2012 UP33 7 RIAN (WNR) MEDICARE PRESCRIPT PART Oct 06, PART D [id number] LAWRE NCE, PATIENT PART D ION D 2012 32A 0 RIAN (WNR) MEDICARE PRESCRIPT PART Oct 06, PART D [id number] LAWRE NCE, PATIENT PART D ION D 2012 UP33 0 RIAN (WNR) Selected Encounter This section includes the information on record at [place] for the Encounter. Date/Time Encounter Type Encounter Reason Provider Source Description Feb 17, 2021 08:03 Outpatient PRIMARY MARIBETH SANDERSON AM Encounter CARE/MEDICINE [...] 11, 2021 11:00 AM AMBULATORY - MEDICINE [place] Mar 31, 2021 02:00 PM [facility] Apr 09, 2021 01:00 PM [facility] Apr 13, 2021 02:00 PM [facility] Apr 13, 2021 02:30 PM AMBULATORY - PSYCHIATRY [place] Apr 21, 2021 11:00 AM AMBULATORY [facility] Apr 22, 2021 01:00 PM AM[facility]ATORY - [facility]AB [facility] May 03, 2021 01:45 PM AMBULATORY [facility] May 05, 2021 03:00 PM AM[facility]ULATORY [facility] Jun 01, 2021 02:00 PM AMBULATORY [facility] Jun 02, 2021 12:30 PM AMBULATORY [facility] Jun 04, 2021 12:30 PM AMBULATORY [facility] Jun 08, 2021 02:00 PM AMBULATORY [facility] STRN [facility] Jun 16, 2021 02:00 PM AMBULATORY [facility] Jun 18, 2021 01:00 PM AMBULATORY [facility] Jun 22, 2021 02:00 PM AMBULATORY [facility] Jun 23, 2021 01:00 PM AMBULATORY [facility] STRPriyanka [facility] Jul 07, 2021 11:00 AM AMBULATORY [facility] Jul 13, 2021 02:00 PM AMBULATORY [facility] Jul 20, 2021 02:30 PM AMBULATORY [facility] Encounter Notes: All associated encounter notes This section contains the clinical notes associated to the Encounter. Date/Time Encounter Note(s) Provider Source Feb 17, 2021 08:03 AM PRIMARY CARE SECURE MESSAGING: MAGNUS SANDERSON [facility] WSTRN LOCAL TITLE: PRIMARY CARE SECURE MESSAGING [facility] STANDARD TITLE: PRIMARY CARE SECURE MESSAGING DATE OF NOTE: FEB 17, 2021@08:03 ENTRY DATE: FEB 17, 2021@08:03:53 AUTHOR: MAGNUS SANDERSON COSIGNER: URGENCY: STATUS: COMPLETED ------Original Message Sent: 02/17/2021 01:28 AM From: RIAN HOPKINS To: ARLETTEO_PRIMARY CARE_SPOPC Subject: Sleep Apnea test I would like to have a new leep apnea test done because the last one I had was about 15 or 20 years ago. An d one day I called the [facility] and asked a question about my machine and they told me if they did not do the test they could not help me . So thats why I want the [place] to give me the test so next time they will help me . So please set up a t est for me. Thanks Juan Carlos [phone] please let me know . /es/ Magnus Sanderson RN Registered Nurse Signed: 02/17/2021 08:03 Receipt Acknowledged By: * AWAITING SIGNATURE * PETER CHONG
--- OUTSIDE RECORDS SUMMARY | 2022-02-03 00:36 | XMS_ITS ---
:1950 Author Organization Department [facility] rs Address [address] [place] [address] Support Name Relationship Address Phone LORI HOPKINS Unavailable [address] [place] [address] [place] [address] LORI HOPKINS Unavailable [address] [facility] [place] [address] Insurance Providers: All historical and current Section [...] Number Silva JARRED PREFERRED STAND May 08 [id number] PROVIDER SHIVA 2010 [id number] [phone] RIAN MILLAN FEDERAL ORGANIZAT SELF ION (PPO) BCBS [place] PREFERRED STAND May 08 [id number] [phone] JAMES CE PATIENT FEP PROVIDER SHIVA 2010 87 123 RIAN MILLAN ORGANGERMANAT INDIV ION (PPO) IDUAL BCBS OF PREFERRED STAND May 08 [id number] [phone] JAMES CE PATIENT MASS PROVIDER SHIVA 2010 87 3 RIAN MILLAN FEDERAL ORGANIZAT SELF ION (PPO) BCBS OF PREFERRED STAND May 08 [id number] [phone] JAMES CE PATIENT MASS FEP PROVIDER SHIVA 2010 87 6 RIAN MILLAN ORGANIZAT SELF ION (PPO) BCBS OF DENTAL STAND May 08, DENTAL [id number] [phone] SANDEEP, PATIENT MASS FEP INSURANCE SHIVA 2010 87 6 RIAN DENTAL BCBS OF [place] MEDICARE FEP Dec 06 [id number] SANDEEP PATIENT FEP SECONDARY STAND 2019 [phone] RIAN MILLAN (NO B SHIVA EXC) MEDSE Suzan CAREMARK PRESCRIPT FEP Dec 06, [id number] SANDEEP PATIENT FEP ION ONLY 2014 0 87 [phone] RIAN MILLAN PRESCRIPT May 08, [id number] [phone] EDUARDO MATTHEW PATIENT FEP ION 2011 0 87 1 RIAN MILLAN PRESCRIPT CAREM May 08, [id number] [phone] EDUARDO MATTHEW, PATIENT FEP BCBS ION ARK 2011 0 87 1 RIAN FEPRX PLAN CAREMARK PRESCRIPT May 08, [id number] [phone] LAWR ENCEstella PATIENT FEPRX PLAN ION 2011 0 87 331 RIAN MILLAN-F PRESCRIPT FEPRX May 08, [id number] [phone] LA JENENCE PATIENT EP BCBS ION /PT D 2010 0 87 1 RIAN MILLAN [facility] May 18, [id number] [phone] JAMES CE, PATIENT RE [place] AL 2003 32 7 RIAN CE ORGANIZ EXPRESS PRESCRIPT CONNE May 18, [id number] [phone] JAMES CE, PATIENT SCRIPTS ION CTICA 2002 [id number] 7 RIAN ([id number]) RE MEDICARE MEDICARE PART Oct 06, PART A [id number] JAMES CE, PATIENT (WNR) (M) A 2013 UP33 00 JOSEPH MEDICARE MEDICARE PART Oct 06, PART B [id number] [id number] JAMES CE, PATIENT (WNR) (M) B 2012 UP33 00 [place] MEDICARE MEDICARE PART Oct 06, PART A [id number] 800 Lisa HOPKINS (WNR) (M) A 2012 UP33 [id number] JO[place] MEDICARE MEDICARE PART Oct 06, PART A [id number] [phone] JAMES CE, PATIENT (WNR) (M) A 2013 UP33 2 [place] MEDICARE MEDICARE PART Oct 06, PART B [id number] 800 Lisa HOPKINS (WNR) (M) B 2012 UP33 [id number] RIAN MEDICARE MEDICARE PART Oct 06, PART A [id number] [phone] JAMES CE, PATIENT (WNR) (M) A 2013 UP33 7 RIAN MEDICARE MEDICARE PART Oct 06, PART B [id number] [phone] JAMES CE, PATIENT (WNR) (M) B 2012 UP33 7 RIAN MEDICARE MEDICARE PART Oct 06, PART B [id number] JAMES CE, PATIENT (WNR) (M) B 2012 UP33 2 RIAN MEDICARE MEDICARE PART Dec 06, PART D [id number] Lisa HOPKINS ATIENT PART D (M) D 2018 UP33 [phone] RIAN (WNR) MEDICARE PRESCRIPT PART Oct 06, PART D [id number] LAWRE NCE, PATIENT PART D ION D 2012 32A 0 RIAN (WNR) MEDICARE PRESCRIPT PART Oct 06, PART D [id number] LAWRE NCE, PATIENT PART D ION D 2012 UP33 0 RIAN (WNR) MEDICARE MEDICARE PART Oct 06, PART D [id number] [id number] JAMES CE, PATIENT PART D (M) D 2012 UP33 7 RIAN (WNR) Selected Encounter This section includes the information on record at [place] for the Encounter. Date/Time Encounter Type Encounter Reason Provider Source Description Feb 17, 2021 03:02 Outpatient TELEPHONE AARON MESSINA PM Encounter IHE Encounter Template Text not used by [place] Plan of Treatment: Future Appointments (+ 6 months) and Future Tests (+/- 45 days) The Plan of Treatment section includes future care activities for the patient from all [place] treatmentfacilities. This section includes future appointments and future orders which are active, pending orscheduled.Future Appointments This section includes appointments that were scheduled to occur 6 months from the date of the Encounter, up to a maximum of 20 appointments. The data comes from all [place] treatment facilities. Appointment Date/Time Appointment Type Appointment Facili ty Name Mar 11, 2021 11:00 AM AMBULATORY - MEDICINE [place] Mar 31, 2021 02:00 PM [facility] Apr 09, 2021 01:00 PM [facility]ULATORY [facility] Apr 13, 2021 02:00 PM [facility] Apr 13, 2021 02:30 PM AMBULATORY - PSYCHIATRY [place] Apr 21, 2021 11:00 AM AMBULATORY MEDICINE [place] Apr 22, 2021 01:00 PM AMBULATORY - REHAB [facility] May 03, 2021 01:45 PM AMBULATORY - MEDICINE [facility] May 05, 2021 03:00 PM AMBULATORY - REHAB MEDICINE [place] [facility] W SANDRA COLEMANUSETS [facility] Jun 01, 2021 02:00 PM AMBULATORY PSYCHIATRY [place] Jun 02, 2021 12:30 PM AMBULATORY [place]CHIATRY [place] Jun 04, 2021 12:30 PM AMBULATORY - PSYCHIATRY [place] Jun 08, 2021 02:00 PM AMBULATORY [facility]AB [facility] W [place]ILAN JARED[facility]ETS [facility] Jun 16, 2021 02:00 PM AMBULATORY PSYCHIATRY [place] Jun 18, 2021 01:00 PM AMBULATORY MEDICINE [place] CNTRL WSTRN Curtis ROSALESCHUSETS [facility] Jun 22, 2021 02:00 PM AMBULATORY [facility] Jun 23, 2021 01:00 PM [facility] W [facility]DRA COLEMAN[facility]ETS [facility] Jul 07, 2021 11:00 AM AMBULATORY - MEDICINE [place] Jul 13, 2021 02:00 PM AMBULATORY PSYCHIATRY [place] Jul 20, 2021 02:30 PM AMBULATORY [facility] Encounter Notes: All associated encounter notes This section contains the clinical notes associated to the Encounter. Date/Time Encounter Note(s) Provider Source Feb 17, 2021 03:02 PM MENTAL HEALTH TELEPHONE ENCOUNTER NOTE: AARON NICHOLS [place] LOCAL TITLE: TELEPHONE NOTE/MENTAL HEALTH STANDARD TITLE: MENTAL HEALTH TELEPHONE ENCOUNTE R NOTE DATE OF NOTE: FEB 17, 2021@15:02 ENTRY DATE: FEB 17, 2021@15:02:29 AUTHOR: AARON MESSINA EXP COSIGNER: URGENCY: STATUS: COMPLETED Undersigned called and spoke to as Dr. Curtis day indicated that [place] was interested in re-engagin g in therapy. Appointment will occur on 04/13 at 2pm. [place] related that he was open to discussing additional PTSD treatment options during his appointment with undersigned. /justine/ AARON MESSINA PSYD Clinical Psychologist Signed: 02/17/2021 15:04
--- OUTSIDE RECORDS SUMMARY | 2022-02-03 00:37 | XMS_ITS | Encounter Summary ---
:1950 Author Organization Department [facility] rs Address [address] [place] [address] Support Name Relationship Address Phone LORI HOPKINS Unavailable [address] [place] [address] [phone] [place] [address] LORI HOPKINS Unavailable [address] [facility] [phone] 8 [place] [address] Insurance Providers: All historical and current Section [...] Number Silva JARRED PREFERRED STAND May 08 [id number] PROVIDER SHIVA 2011 [id number] RIAN MILLAN FEDERAL ORGANIZAT SELF ION (PPO) BCBS [place] PREFERRED STAND May 08 [id number] [phone] JAMES CE PATIENT FEP PROVIDER SHIVA 2010 87 123 RIAN MILLAN ORGANGERMANAT INDIV ION (PPO) IDUAL BCBS OF PREFERRED STAND May 08 [id number] [phone] JAMES CE PATIENT MASS PROVIDER SHIVA 2010 87 3 RIAN MILLAN FEDERAL ORGANIZAT SELF ION (PPO) BCBS OF PREFERRED STAND May 08 [id number] [phone] JAMES CE PATIENT MASS FEP PROVIDER SHIVA 2010 87 6 RIAN MILLAN ORGANIZAT SELF ION (PPO) BCBS OF DENTAL STAND May 08, DENTAL [id number] [phone] SANDEEP, PATIENT MASS FEP INSURANCE SHIVA 2010 87 6 RIAN DENTAL BCBS OF [place] MEDICARE FEP Dec 06 [id number] SANDEEP PATIENT FEP SECONDARY STAND 2019 [phone] RIAN MILLAN (NO B SHIVA EXC) MEDSE C CAREMARK PRESCRIPT FEP Dec 06, [id number] SANDEEP PATIENT FEP ION ONLY 2014 0 87 [phone] RIAN MILLAN [place] PRESCRIPT May 08, [id number] [phone] EDUARDO ENCEstella PATIENT FEP ION 2011 0 87 1 RIAN MILLAN PRESCRIPT CAREM May 08, [id number] [phone] EDUARDO ENCEstella, PATIENT FEP BCBS ION ARK 2011 0 87 1 RIAN FEPRX PLAN CAREMARK PRESCRIPT May 08, [id number] [phone] LAWR ENCE PATIENT FEPRX PLAN ION 2011 0 87 331 RIAN MILLAN-F PRESCRIPT FEPRX May 08, [id number] [phone] LA WRENCE PATIENT EP BCBS ION /PT D 2010 0 87 1 RIAN MILLAN [facility] May 18, [id number] [phone] JAMES CE, PATIENT [facility] 2003 32 7 RIAN CE ORGANIZ EXPRESS PRESCRIPT CONNE May 18, [id number] [phone] JAMES CE, PATIENT SCRIPTS ION CTICA 2003 [id number] 7 RIAN ([id number]) RE MEDICARE MEDICARE PART Oct 06, PART A [id number] Lisa HOPKINS (WNR) (M) A 2012 UP33 [id number] JOSEPH MEDICARE MEDICARE PART Oct 06, PART B [id number] 800 Lisa HOPKINS (WNR) (M) B 2012 UP33 [id number] [place] MEDICARE MEDICARE PART Oct 06, PART A [id number] [phone] JAMES CE, PATIENT (WNR) (M) A 2013 UP33 00 [place] MEDICARE MEDICARE PART Oct 06, PART B [id number] [phone] JAMES CE, PATIENT (WNR) (M) B 2013 UP33 00 [place] MEDICARE MEDICARE PART Oct 06, PART A [id number] JAMES CE, PATIENT (WNR) (M) A 2013 UP33 2 [place] MEDICARE MEDICARE PART Oct 06, PART A [id number] [id number] JAMES CE, PATIENT (WNR) (M) A 2012 UP33 7 RIAN MEDICARE MEDICARE PART Oct 06, PART B [id number] [id number] JAMES CE, PATIENT (WNR) (M) B 2012 UP33 7 RIAN MEDICARE MEDICARE PART Oct 06, PART B [id number] [id number] JAMES CE, PATIENT (WNR) (M) B 2012 UP33 2 RIAN MEDICARE MEDICARE PART Dec 06, PART D [id number] Lisa HOPKINS ATIENT PART D (M) D 2018 UP33 [phone] RIAN (WNR) MEDICARE PRESCRIPT PART Oct 06, PART D [id number] LAWRE NCE, PATIENT PART D ION D 2012 32A 0 RIAN (WNR) MEDICARE PRESCRIPT PART Oct 06, PART D [id number] LAWRE NCE, PATIENT PART D ION D 2012 UP33 0 RIAN (WNR) MEDICARE MEDICARE PART Oct 06, PART D [id number] JAMES CE, PATIENT PART D (M) D 2012 UP33 7 RIAN (WNR) Selected Encounter This section includes the information on record at [place] for the Encounter. Date/Time Encounter Type Encounter Description Reason Provider Source Feb 11, 2021 08:29 Outpatient Encounter PRIMARY CARE/MEDICINE AM IHE Encounter Template Text not used by [place] Plan of Treatment: Future Appointments (+ 6 months) and Future Tests (+/- 45 days) The Plan of Treatment section includes future care activities for the patient from all [place] treatmentfacilities. This section includes future appointments and future orders which are active, pending orscheduled.Future Appointments This section includes appointments that were scheduled to occur 6 months from the date of the Encounter, up to a maximum of 20 appointments. The data comes from all [place] treatment facilities. Appointment Date/Time Appointment Type Appointment Facili ty Name Feb 12, 2021 01:30 PM AMBULATORY - PS[place]CHIATRY [place] Mar 11, 2021 11:00 AM AMBULATORY - MEDICINE [place] Mar 31, 2021 02:00 PM [facility] Apr 09, 2021 01:00 PM [facility] Apr 13, 2021 02:00 PM [facility] Apr 13, 2021 02:30 PM AMBULATORY - PS[place]CHIATRY [place] Apr 21, 2021 11:00 AM AMBULATORY [facility] Apr 22, 2021 01:00 PM AMBULATORY REHAB [facility] May 03, 2021 01:45 PM AMBULATORY MEDICINE [facility] May 05, 2021 03:00 PM [facility] [place] [facility] Jun 01, 2021 02:00 PM AMBULATORY [facility] [place] Jun 02, 2021 12:30 PM [facility]ORY [facility] Jun 04, 2021 12:30 PM AMBULATORY PS[place]CHIATRY [place] Jun 08, 2021 02:00 PM [facility] [place] [facility] Jun 16, 2021 02:00 PM [facility]UL[facility]ORY [facility] Jun 18, 2021 01:00 PM AMBULATORY MEDICINE [facility] W[facility]N M [facility] Jun 22, 2021 02:00 PM AMBULATORY PS[place]CHIATRY [place] Jun 23, 2021 01:00 PM [facility]ORY [facility] W [facility]N [place] [facility] Jul 07, 2021 11:00 AM AMBULATORY [facility] Jul 13, 2021 02:00 PM [facility]UL[facility]ORY [facility] Encounter Notes: All associated encounter notes This section contains the clinical notes associated to the Encounter. Date/Time Encounter Note(s) Provider Source Feb 11, 2021 08:29 AM PRIMARY CARE SECURE MESSAGING: JOVAN HOOVER [facility] WSTRN LOCAL TITLE: PRIMARY CARE SECURE MESSAGING [facility] STANDARD TITLE: PRIMARY CARE SECURE MESSAGING DATE OF NOTE: FEB 11, 2021@08:29:23 ENTRY DATE: FEB 11, 2021@08:29:23 AUTHOR: JOVAN HOOVER EXP COSIGNER: URGENCY: STATUS: COMPLETED ------Original Message Sent: 02/11/2021 03:23 AM From: RIAN HOPKINS To: Nisa CHONG_PRIMARY CARE_SPOPC Subject: Meds Medications that have d so I can get a new script from the Doc and update all my meds . Thanks Juan Carlos # [id number] BETAMETHASONE DIPROPIONATE 0.05% CREAM RX#[id number] like the meds here INSULIN SYRINGE 1ML 31G 8MM RX#[id number] small I believe they are 0.5 really s markos /justine/ JOVAN VANEGAS Signed: 02/11/2021 08:29 Receipt Acknowledged By: * AWAITING SIGNATURE * RODNEY ARNDT * AWAITING SIGNATURE * PETER CHONG
--- OUTSIDE RECORDS SUMMARY | 2022-02-03 00:37 | XMS_ITS ---
:1950 Author Organization Department [facility] rs Address [address] [place] [address] Support Name Relationship Address Phone LORI HOPKINS Unavailable [address] [place] [address] [phone] [place] [address] LORI HOPKINS Unavailable [address] [facility] [phone] [place] [address] Insurance Providers: All historical and current Section [...] Number Silva JARRED PREFERRED STAND May 08 [id number] [phone] PROVIDER SHIVA [phone] RIAN MILLAN FEDERAL ORGANIZAT SELF ION (PPO) BCBS ID PREFERRED STAND May 08 [id number] [phone] JAMES CE PATIENT FEP PROVIDER SHIVA [phone] RIAN MILLAN ORGANGERMANAT INDIV ION (PPO) IDUAL BCBS OF PREFERRED STAND May 08 [id number] [phone] JAMES CE PATIENT MASS PROVIDER SHIVA 2010 87 3 RIAN MILLAN FEDERAL ORGANIZAT SELF ION (PPO) BCBS OF PREFERRED STAND May 08 [id number] [phone] JAMES CE PATIENT MASS FEP PROVIDER SHIVA 2010 87 6 RIAN MILLAN ORGANIZAT SELF ION (PPO) BCBS OF DENTAL STAND May 08, DENTAL [id number] [phone] SANDEEP, PATIENT MASS FEP INSURANCE SHIVA 2010 87 6 RIAN DENTAL [place]BS OF [place] MEDICARE FEP Dec 06 [id number] 800 SANDEEP PATIENT FEP SECONDARY STAND 2019 [phone] RIAN MILLAN (NO B SHIVA EXC) MEDSE C CAREMARK PRESCRIPT FEP Dec 06, [id number] SANDEEP PATIENT FEP ION ONLY 2014 0 [phone] RIAN MILLAN CAREMARK PRESCRIPT May 08, [id number] [phone] EDUARDO ENCEstella PATIENT FEP ION 2011 0 87 1 RIAN MILLAN PRESCRIPT CAREM May 08, [id number] [phone] EDUARDO ENCEstella, PATIENT FEP BCBS ION ARK 2011 0 87 1 RIAN FEPRX PLAN CAREMARK PRESCRIPT May 08, [id number] [phone] LAWR ENCE PATIENT FEPRX PLAN ION 2011 0 87 331 RIAN MILLAN-F PRESCRIPT FEPRX May 08, [id number] [phone] [place] WRENCE PATIENT EP BCBS ION /PT D 2010 0 87 1 RIAN MILLAN [facility] May 18, [id number] [phone] JAMES CE, [facility] 32 7 RIAN CE ORGANIZ EXPRESS PRESCRIPT CONNE May 18, [id number] [phone] JAMES CE, PATIENT SCRIPTS ION CTICA 2003 [id number] RIAN ([id number]) RE MEDICARE MEDICARE PART Oct 06, PART A [id number] JAMES CE, PATIENT (WNR) (M) A 2012 UP33 2 JOSEPH MEDICARE MEDICARE PART Oct 06, PART B [id number] JAMES CE, PATIENT (WNR) (M) B 2012 UP33 2 [place] MEDICARE MEDICARE PART Oct 06, PART A [id number] JAMES CE, PATIENT (WNR) (M) A 2013 UP33 00 [place] MEDICARE MEDICARE PART Oct 06, PART B [id number] [id number] JAMES CE, PATIENT (WNR) (M) B 2012 UP33 00 [place] MEDICARE MEDICARE PART Oct 06, PART A [id number] Lisa HOPKINS (WNR) (M) A 2012 UP47 [id number] [place] MEDICARE MEDICARE PART Oct 06, PART A [id number] JAMES CE, PATIENT (WNR) (M) A 2012 UP33 7 RIAN MEDICARE MEDICARE PART Oct 06, PART B [id number] JAMES CE, PATIENT (WNR) (M) B 2012 UP33 7 RIAN MEDICARE MEDICARE PART Oct 06, PART B [id number] Lisa HOPKINS ATIENT (WNR) (M) B 2012 UP33 [phone] RIAN MEDICARE MEDICARE PART Dec 06, PART D [id number] Lisa HOPKINS ATIENT PART D (M) D 2018 UP33 [phone] RIAN (WNR) MEDICARE MEDICARE PART Oct 06, PART D [id number] JAMES CE, PATIENT PART D (M) D 2012 UP33 7 RIAN (WNR) MEDICARE PRESCRIPT PART Oct 06, PART D [id number] LAWRE NCE, PATIENT PART D ION D 2012 [id number] 0 RIAN (WNR) MEDICARE PRESCRIPT PART Oct 06, PART D [id number] LAWRE NCE, PATIENT PART D ION D 2012 UP33 0 RIAN (WNR) Selected Encounter This section includes the information on record at [place] for the Encounter. Date/Time Encounter Type Encounter Reason Provider Source Description Feb 04, 2021 02:16 Outpatient PRIMARY KIN,MARIBETH PM Encounter CARE/MEDICINE E [...] 12, 2021 01:30 PM AMBULATORY - PS[facility]CHIATRY [place] Mar 11, 2021 11:00 AM AMBULATORY - MEDICINE [place] Mar 31, 2021 02:00 PM AMBULATORY MEDICINE [facility] [place] [facility] Apr 09, 2021 01:00 PM [facility] [place] [facility] Apr 13, 2021 02:00 PM [facility] [place] [facility] Apr 13, 2021 02:30 PM AMBULATORY [facility] Apr 21, 2021 11:00 AM AMBULATORY [facility] Apr 22, 2021 01:00 PM AMBULATORY - REHAB [facility] May 03, 2021 01:45 PM [facility] [place] [facility] May 05, 2021 03:00 PM [facility] [place] [facility] Jun 01, 2021 02:00 PM AMBULATORY [facility] [place] Jun 02, 2021 12:30 PM AMBULATORY [facility] Jun 04, 2021 12:30 PM AMBULATORY [facility] [place] Jun 08, 2021 02:00 PM [facility] Jun 16, 2021 02:00 PM AMBULATORY [facility] Jun 18, 2021 01:00 PM [facility] [place] [facility] Jun 22, 2021 02:00 PM AMBULATORY [facility]CHI[facility]RY [place] Jun 23, 2021 01:00 PM [facility] [place] Jul 07, 2021 11:00 AM AMBULATORY [facility] Jul 13, 2021 02:00 PM AMBULATORY [facility] Encounter Notes: All associated encounter notes This section contains the clinical notes associated to the Encounter. Date/Time Encounter Note(s) Provider Source Feb 05, 2021 08:55 AM PRIMARY CARE SECURE MESSAGING: MAGNUS SANDERSON [facility] LOCAL TITLE: PRIMARY CARE SECURE MESSAGING [facility] STANDARD TITLE: PRIMARY CARE SECURE MESSAGING DATE OF NOTE: FEB 05, 2021@08:55:25 ENTRY DATE: FEB 05, 2021@08:55:26 AUTHOR: MAGNSU SANDERSON COSIGNER: URGENCY: STATUS: COMPLETED PRIMARY CARE SECURE MESSAGING Has ADDENDA * ------Original Message Sent: 02/04/2021 11:17 PM From: RIAN HOPKINS To: ARLETTEO_PRIMARY CARE_SPOPC Subject: Omeprazole 20mg ec cap rx # [id number] Thank you and don't we have a new appointment coming up if so see you then. Juan Carlos [id number] /justine/ Magnus Sanderson RN Registered Nurse Signed: 02/05/2021 08:55 02/05/2021 ADDENDUM STATUS: COMPLETED MSA - please contact to reschedule PCP a ppointment. Thank you. 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 /virgilio VANEGAS Signed: 02/05/2021 09:51 Feb 04, 2021 02:16 PM PRIMARY CARE SECURE MESSAGING: MAGNUS SANDERSON [facility] LOCAL TITLE: PRIMARY CARE SECURE MESSAGING [facility] TITLE: PRIMARY CARE SECURE MESSAGING DATE OF NOTE: FEB 04, 2021@14:16 ENTRY DATE: FEB 04, 2021@14:17:11 AUTHOR: MAGNUS SANDERSON EXP COSIGNER: URGENCY: STATUS: COMPLETED ------Original Message Sent: 02/04/2021 01:48 PM From: RIAN HOPKINS To: ARLETTE,O_PRIMARY CARE_[facility] Subject: Omeprazole 20mg ec cap rx # [id number] I have tried to refill this scrip 3 or 3 time's but I have not received it yet . Can you check it out for me . Thanks Juan Carlos # [phone] ------Original Message Sent: 02/04/2021 02:16 PM From: MAGNUS SANDERSON To: RIAN HOPKINS Subject: Omeprazole 20mg ec cap rx # [id number] Dear Mr. Hopkins, I am unsure why you could not request th e refill. But I did it for you. Should be on its way today or tomorrow. Thank you, Nurse Magnus Banuelos, GAYLAN, RN SPO PACT 5 Registered Nurse /justine/ Magnus Sanderson RN Registered Nurse Signed: 02/04/2021 14:17
--- OUTSIDE RECORDS SUMMARY | 2022-02-03 00:37 | XMS_ITS | Encounter Summary ---
:1950 Author Organization Department [facility] rs Address [address] [place] [address] Support Name Relationship Address Phone LORI HOPKINS Unavailable [address] [place] [address] [place] [address] LORI HOPKINS Unavailable [address] [place] [address] Insurance Providers: All historical and current Section [...] Number Silva JARRED PREFERRED STAND May 08 [id number] PROVIDER SHIVA 2011 [id number] [phone] RIAN MILLAN FEDERAL ORGANIZAT SELF ION (PPO) [place]BS [place] PREFERRED STAND May 08 [id number] [phone] JAMES CE PATIENT FEP PROVIDER SHIVA 2010 87 123 RIAN MILLAN ORGANGERMANAT INDIV ION (PPO) IDUAL BCBS OF PREFERRED STAND May 08 [id number] [phone] JAMES CE PATIENT MASS PROVIDER SHIVA 2010 87 3 RIAN MILLAN FEDERAL ORGANIZAT SELF ION (PPO) BCBS OF PREFERRED STAND May 08 [id number] [phone] JAMES CE PATIENT MASS FEP PROVIDER SHIVA 2010 87 6 RIAN MILLAN ORGANIZAT SELF ION (PPO) BCBS OF DENTAL STAND May 08, DENTAL [id number] [phone] SANDEEP, PATIENT MASS FEP INSURANCE SHIVA 2010 87 6 RIAN DENTAL [place] MED[place] FEP Dec 06 [id number] 800 SANDEEP PATIENT FEP SECONDARY STAND 2019 [phone] RIAN MILLAN (NO B SHIVA EXC) MEDSE C CAREMARK PRESCRIPT FEP Dec 06, [id number] SANDEEP PATIENT FEP ION ONLY 2014 0 87 [phone] RIAN MILLAN CAREMARK PRESCRIPT May 08, [id number] [phone] EDUARDO ENCEstella PATIENT FEP ION 2011 0 87 1 RIAN MILLAN PRESCRIPT CAREM May 08, [id number] [phone] EDUARDO ENCEstella, PATIENT FEP BCBS ION ARK 2011 0 87 1 RIAN FEPRX PLAN CAREMARK PRESCRIPT May 08, [id number] [phone] LAWR ENCEstella PATIENT FEPRX PLAN ION 2011 0 87 331 RIAN MILLAN-F PRESCRIPT FEPRX May 08, [id number] [phone] LA WRENCE PATIENT EP BCBS ION /PT D 2010 0 87 1 RIAN MILLAN [facility] May 18, [id number] [phone] JAMES CE, PATIENT RE [place] 2003 32 7 RIAN CE ORGANIZ EXPRESS PRESCRIPT CONNE May 18, [id number] [phone] JAMES CE, PATIENT SCRIPTS ION CTICA 2003 [id number] 7 RIAN ([id number]) RE MEDICARE MEDICARE PART Oct 06, PART B [id number] Lisa HOPKINS (WNR) (M) B 2012 UP33 [id number] JOSEPH MEDICARE MEDICARE PART Oct 06, PART A [id number] [phone] JAMES CE, PATIENT (WNR) (M) A 2013 UP33 00 [place] MEDICARE MEDICARE PART Oct 06, PART B [id number] [id number] JAMES CE, PATIENT (WNR) (M) B 2013 UP33 00 [place] MEDICARE MEDICARE PART Oct 06, PART A [id number] JAMES CE, PATIENT (WNR) (M) A 2013 UP33 2 [place] MEDICARE MEDICARE PART Oct 06, PART A [id number] JAMES CE, PATIENT (WNR) (M) A 2013 UP33 7 RIAN MEDICARE MEDICARE PART Oct 06, PART B [id number] JAMES CE, PATIENT (WNR) (M) B 2012 UP33 7 RIAN MEDICARE MEDICARE PART Oct 06, PART B [id number] JAMES CE, PATIENT (WNR) (M) B 2012 UP33 2 RIAN MEDICARE MEDICARE PART Oct 06, PART A [id number] Lisa HOPKINS ATIENT (WNR) (M) A 2012 UP33 [phone] RIAN MEDICARE MEDICARE PART Dec 06, PART D [id number] Lisa HOPKINS ATIENT PART D (M) D 2018 UP33 [phone] RIAN (WNR) MEDICARE PRESCRIPT PART Oct 06, PART D [id number] LAWRE NCE, PATIENT PART D ION D 2012 32A 0 RIAN (WNR) MEDICARE PRESCRIPT PART Oct 06, PART D [id number] LAWRE NCE, PATIENT PART D ION D 2012 UP33 0 RIAN (WNR) MEDICARE MEDICARE PART Oct 06, PART D [id number] JAMES CE, PATIENT PART D (M) D 2012 UP33 7 RIAN (WNR) Selected Encounter This section includes the information on record at [place] for the Encounter. Date/Time Encounter Type Encounter Description Reason Provider Source Feb 11, 2021 02:39 Outpatient Encounter PRIMARY CARE/MEDICINE PM [facility] Encounter Template Text not used by [place] Plan of Treatment: Future Appointments (+ 6 months) and Future Tests (+/- 45 days) The Plan of Treatment section includes future care activities for the patient from all [place] treatmentfacilities. This section includes future appointments and future orders which are active, pending orscheduled.Future Appointments This section includes appointments that were scheduled to occur 6 months from the date of the Encounter, up to a maximum of 20 appointments. The data comes from all [place] treatment facilities. Appointment Date/Time Appointment Type Appointment Facili ty Name Feb 12, 2021 01:30 PM AMBULATORY - PS[place]CHIATRY [place] Mar 11, 2021 11:00 AM AMBULATORY - MEDICINE [place] Mar 31, 2021 02:00 PM [facility] Apr 09, 2021 01:00 PM [facility] Apr 13, 2021 02:00 PM [facility] Apr 13, 2021 02:30 PM AMBULATORY - PS[facility]CHIATRY [place] Apr 21, 2021 11:00 AM AMBULATORY [facility] Apr 22, 2021 01:00 PM AM[facility]ULATORY - REHAB [facility] May 03, 2021 01:45 PM AMBULATORY [facility]ICINE [facility] May 05, 2021 03:00 PM [facility] [place] [facility] Jun 01, 2021 02:00 PM AMBULATORY [facility] [place] Jun 02, 2021 12:30 PM AMBULATORY [facility] Jun 04, 2021 12:30 PM AMBULATORY [facility] [place] Jun 08, 2021 02:00 PM [facility] [place] [facility] Jun 16, 2021 02:00 PM AMBULATORY [facility] Jun 18, 2021 01:00 PM AMBULATORY [facility]ICINE [facility] [place] [place] [facility] Jun 22, 2021 02:00 PM AMBULATORY [facility] [place] Jun 23, 2021 01:00 PM [facility] [place] [facility] Jul 07, 2021 11:00 AM AMBULATORY [facility] Jul 13, 2021 02:00 PM AMBULATORY [facility] Encounter Notes: All associated encounter notes This section contains the clinical notes associated to the Encounter. Date/Time Encounter Note(s) Provider Source Feb 11, 2021 02:39 PM PRIMARY CARE SECURE MESSAGING: JOVAN HOOVER [facility] LOCAL TITLE: PRIMARY CARE SECURE MESSAGING [facility] STANDARD TITLE: PRIMARY CARE SECURE MESSAGING DATE OF NOTE: FEB 11, 2021@14:39:11 ENTRY DATE: FEB 11, 2021@14:39:11 AUTHOR: JOVAN HOOVER EXP COSIGNER: URGENCY: STATUS: COMPLETED ------Original Message Sent: 02/11/2021 02:35 PM From: RIAN HOPKINS To: Nisa CHONG_PRIMARY CARE_SPOPC Subject: Meds Medications that have d so I can get a new script from the Doc and update all my meds . Thanks Juan Carlos # [id number] BETAMETHASONE DIPROPIONATE 0.05% CREAM RX#[id number] like the meds here INSULIN SYRINGE 1ML 31G 8MM RX#[id number] small I believe they are 0.5 really s markos /justine/ JOVAN VANEGAS Signed: 02/11/2021 14:39 Receipt Acknowledged By: * AWAITING SIGNATURE * PETER CHONG
--- OUTSIDE RECORDS SUMMARY | 2022-02-03 00:38 | XMS_ITS | Encounter Summary ---
:1950 Author Organization [facility] Address [address] [place] [id number] Support Name Relationship Address Phone LORI HOPKINS Unavailable [address] [facility] [address] LORI HOPKINS Unavailable [address] [facility] [phone] [place] [address] Insurance Providers: All historical and current Section [...] Number Silva JARRED PREFERRED STAND May 08 [id number] [phone] PROVIDER SHIVA 2010 [id number] [phone] RIAN MILLAN FEDERAL ORGANIZAT SELF ION (PPO) [place] PREFERRED STAND May 08 [id number] [phone] JAMES CE PATIENT FEP PROVIDER SHIVA [phone] RIAN MILLAN ORGANGERMANAT INDIV ION (PPO) IDUAL BCBS OF PREFERRED STAND May 08 [id number] [phone] JAMES CE PATIENT MASS PROVIDER SHIVA [phone] [id number] RIAN MILLAN FEDERAL ORGANIZAT SELF ION (PPO) BCBS OF PREFERRED STAND May 08 [id number] [phone] JAMES CE PATIENT MASS FEP PROVIDER SHIVA [phone] RIAN MILLAN ORGANIZAT SELF ION (PPO) BCBS OF DENTAL STAND May 08, DENTAL [id number] [phone] SANDEEP, PATIENT MASS FEP INSURANCE SHIVA [phone] 6 RIAN DENTAL BCBS OF [place] MEDICARE FEP Dec 06 [id number] SANDEEP PATIENT FEP SECONDARY STAND [phone] RIAN MILLAN (NO B SHIVA EXC) MEDSE C [place] PRESCRIPT FEP Dec 06, [id number] SANDEEP PATIENT FEP ION ONLY 2013 [phone] RIAN MILLAN PRESCRIPT May 08, [id number] [phone] EDUARDO MATTHEW PATIENT FEP ION 2011 0 87 1 RIAN MILLAN PRESCRIPT CAREM May 08, [id number] [phone] EDUARDO MATTHEW, PATIENT FEP BCBS ION ARK 2011 0 87 1 RIAN FEPRX PLAN [place] PRESCRIPT May 08, [id number] [phone] ENCEstella PATIENT FEPRX PLAN ION 2010 0 [phone] RIAN MILLAN-F PRESCRIPT FEPRX May 08, [id number] [phone] LA JENENCE PATIENT EP BCBS ION /PT D 2010 0 87 1 RIAN MILLAN [facility] May 18, [id number] [phone] JAMES CE, PATIENT RE JONATAN AL 2003 [id number] [phone] RIAN CE ORGANIZ EXPRESS PRESCRIPT CONNE May 18, [id number] [phone] JAMES CE, PATIENT SCRIPTS ION CTICA 2002 [id number] RIAN ([id number]) RE MEDICARE MEDICARE PART Oct 06, PART A [id number] Lisa HOPKINS (WNR) (M) A 2012 UP33 [phone] RIAN MEDICARE MEDICARE PART Oct 06, PART B [id number] Lisa HOPKINS (WNR) (M) B 2012 UP33 [phone] JOSEPH MEDICARE MEDICARE PART Oct 06, PART A [id number] [phone] JAMES CE, PATIENT (WNR) (M) A 2013 UP33 00 [place] MEDICARE MEDICARE PART Oct 06, PART B [id number] [phone] JAMES CE, PATIENT (WNR) (M) B 2013 UP33 00 [place] MEDICARE MEDICARE PART Oct 06, PART A [id number] [id number] JAMES CE, PATIENT (WNR) (M) A 2013 UP33 2 [place] MEDICARE MEDICARE PART Oct 06, PART A [id number] [phone] JAMES CE, PATIENT (WNR) (M) A 2013 UP33 7 [place] MEDICARE MEDICARE PART Oct 06, PART B [id number] [phone] JAMES CE, PATIENT (WNR) (M) B 2012 UP33 7 RIAN MEDICARE MEDICARE PART Oct 06, PART B [id number] [id number] JAMES CE, PATIENT (WNR) (M) B 2012 UP33 2 RIAN MEDICARE MEDICARE PART Dec 06, PART D [id number] SANDEEPLisa ATIENT PART D (M) D 2018 UP33 [phone] RIAN (WNR) MEDICARE PRESCRIPT PART Oct 06, PART D [id number] [id number] LAWRE NCE, PATIENT PART D ION D 2012 [id number] RIAN (WNR) MEDICARE PRESCRIPT PART Oct 06, PART D [id number] [phone] LAWRE NCE, PATIENT PART D ION D 2012 UP33 0 RIAN (WNR) MEDICARE MEDICARE PART Oct 06, PART D [id number] JAMES CE, PATIENT PART D (M) D 2012 UP33 7 RIAN (WNR) Selected Encounter This section includes the information on record at [place] for the Encounter. Date/Time Encounter Type Encounter Reason Provider Source Description Jun 01, 2021 PSYTX W PT 45 MENTAL HEALTH ICD-10-CM F43.10 AARON MESSINA 02:00 PM [facility] - [facility] Post-traumatic stress disorder, unspecified with Provider Comments: Posttraumatic stress disorder ([facility] [id number]) [facility] Encounter Template Text not used by [place] Assessments - Encounter Diagnoses This section includes the primary and secondary diagnoses documented for the Encounter. Date/Time Primary/Secondary Diagnosis Name Provider Source Diagnosis Jun 01, 2021 PRIMARY Post-traumatic AARON MESSINA [place] 02:52 PM stress disorder, unspecified Plan of Treatment: Future Appointments (+ 6 months) and Future Tests (+/- 45 days) The Plan of Treatment section includes future care activities for the patient from all [place] treatmentfacilities. This section includes future appointments and future orders which are active, pending orscheduled.Future Appointments This section includes appointments that were scheduled to occur 6 months from the date of the Encounter, up to a maximum of 20 appointments. The data comes from all [place] treatment facilities. Appointment Date/Time Appointment Type Appointment Facili ty Name Jun 02, 2021 12:30 PM AMBULATORY - PSYCHIATRY [place] Jun 04, 2021 12:30 PM AMBULATORY - [facility]CHIATRY [place] Jun 08, 2021 02:00 PM [facility] [place] [facility] SANDRA [facility] Jun 16, 2021 02:00 PM [facility]ULATORY [facility] [place] Jun 18, 2021 01:00 PM [facility] Jun 22, 2021 02:00 PM AMBULATORY [facility] Jun 23, 2021 01:00 PM [facility] [place] [facility] Cosmo PANDE[facility] Jul 07, 2021 11:00 AM AMBULATORY - MEDICINE [place] Jul 13, 2021 02:00 PM AM[facility]ULATORY [facility] [place] Jul 20, 2021 02:30 PM AMBULATORY [facility] Aug 05, 2021 02:00 PM AMBULATORY [facility] [place] Aug 16, 2021 02:00 PM AMBULATORY [facility] [place] Aug 26, 2021 02:00 PM AMBULATORY [facility] [place] Sep 03, 2021 11:00 AM AMBULATORY - REHAB [facility] Oct 28, 2021 02:00 PM AMBULATORY [facility] Social History: Smoking Status (Most current) and Tobacco Use (All prior to encounter date) This section includes the most current, and the historical, smoking and tobacco-related health factors from the [place] facility where the Encounter took place.Current Smoking Status This section includes the most current smoking, or tobacco-related health factor, from the [place] facility where the Encounter took place. Date/Time Current Smoking Status Comment Facility September 17, 2020 02:00 PM VA-TOBACCO QUIT 15 YRS OR MORE [place] Tobacco Use History This section includes a history of the smoking, or tobacco- related health factors, that were collected on or before the date of the Encounter. The data comes from the [place] facility where the Encounter took place. Date/Time Smoking Status/Tobacco Use Comment [facility] September 17, 2020 02:00 PM VA-TOBACCO QUIT 15 YRS OR [facility] Jan 10, 2020 02:00 PM VA-TOBACCO FORMER USER [facility] Jan 10, 2020 02:00 PM VA-TOBACCO QUIT 15 YRS OR [facility] Mar 23, 2018 02:31 PM VA-TOBACCO FORMER USER [facility] Mar 23, 2018 02:31 PM VA-TOBACCO QUIT 15 YRS OR [facility] September 19, 2017 01:43 PM QUIT TOBACCO USE > 7 YEARS [facility] September 15, 2016 01:21 PM QUIT TOBACCO USE > 7 YEARS [place] AGO quit 40 years ago May 12, 2015 10:44 AM QUIT TOBACCO USE > 7 YEARS [place] Dec 27, 2006 10:00 AM QUIT TOBACCO USE > 7 YEARS [place] Dec 26, 2005 08:41 AM QUIT TOBACCO USE 1-7 YEARS Aug 11, 2005 08:42 AM QUIT TOBACCO USE IN PAST Dec 09, 2004 08:20 AM QUIT TOBACCO USE IN PAST 2003Apr 02, 2004 08:07 AM QUIT TOBACCO USE IN PAST Quit several wks ago Jun 02, 2003 01:48 PM CURRENT SMOKER RADHA Reece States ocassionally Jan 31, 2002 01:44 PM HISTORY OF SMOKING [place] HUI stopped tobacco 1 year ago Jan 31, 2002 01:44 PM QUIT TOBACCO USE 1-7 YEARS [place] Apr 25, 2001 03:26 PM NON-TOBACCO USER MATHEUS JONES Stopped tobacco 3 years ago September 12, 2000 03:24 PM HISTORY OF SMOKING [place] HUI Quit cigaretts 2 years ago Encounter Notes: All associated encounter notes This section contains the clinical notes associated to the Encounter. Date/Time Encounter Note(s) Provider Source Jun 01, 2021 02:50 PM PSYCHOLOGY NOTE: AARON MESSINA LOCAL TITLE: PSYCHOLOGY NOTE STANDARD TITLE: PSYCHOLOGY NOTE DATE OF NOTE: JUN 01, 2021@14:50 ENTRY DATE: JUN 01, 2021@14:50:42 AUTHOR: AARON MESSINA EXP COSIGNER: URGENCY: STATUS: COMPLETED PSYCHOLOGY NOTE Has ADDENDA [place] [facility] [facility] ([facility]) Standard Documentation [facility] Clinician Resources Only: E911 (Emergency Call Relay Center): [phone] [facility] Crisis Line - ( [phone]-[phone]) press #1. PAMELA Suicide Coordinator [phone], Ext. [phone]; Back-up Ext. [phone] [employer] Mechanic of the Day(AOD), Danny SANTIAGO [phone], Ext. [phone] Introduction: Visit is being conducted by [employer] [facility]. identified with 2 identifiers: [X] Full Name [ ] Date of [ ] VA ID Card [X] Address Emergency Plan: confirmed and/or pro vided the following information in case of emergency or technology failure. PATIENT PHONE - PHONE NUMBER [CELLULAR] - Is patient phone number correct, if not, enter b elow: Hampton's phone number: RAIN HOPKINS JR [address], [place], [address] Hampton's present location and address for appoi ntment: [address] [place] [address] Hampton's emergency contact name and phone numbe r: see chart Hampton reported that location is private and sa fe: Yes Informed Consent: informed of the risks and benefits of [facility] video care. Hampton has the right to refuse video services. If refuses video visit, a zogy-li-[id number] visit will be scheduled. verbalized consent for this video visit: Yes Hampton provided consent for any other persons p resent for visit: Yes If yes, who and relationship to patient:Analilia frank requested that his attend the appointment when she was available so that she can speak with undersigned about Hampton (e.g., his anger) Secure visit: Visit was locked for security and privacy:Yes VISIT DURATION 45 minutes DIAGNOSES: PTSD (ICD-10-CM F43.10) [facility] STATEMENT OF GOALS/CONCERNS: indicated that his treatment goals inclu de: 1) anger management SESSION FOCUS: Hampton stated that he rita nues to experience sleep issues. He related that he informed Dr. Oliveira that th e melatonin was not beneficial for him. Undersigned discussed with him the Alpha -Stim device for insomnia. reported that he would be interested in utilizing the device at t his time. He related that he does not have any implanted devices but that his doctors may provide an implanted device in the future for his chronic p ain. He and undersigned also disc ussed anger management. Hampton's reported that Hampton's anger has not improved and has remaine d the same. Hampton discussed his triggers associated with his anger (e.g., pe ople standing in front of him and blocking his path). Hampton was encouraged t o identify anger cues (e.g., muscle tension, facial edgar es, etc.) as well as additional triggers associated with his anger. He and undersigned also explored helpful coping strategies to improve his anger (e.g., marian ing care of the chickens in his backyard; completing projects around the house). Support and encouragement were provided throughout the appointment. INTERVENTIONS: Psychotherapeutic Interventions: Approaches used include rapport building, life review, supportive therapy, and skills based interventions. ASSESSMENT: BRIEF ASSESSMENT OF MENTAL STATUS: 1. Appearance (grooming, attire, apparent age) within normal limits: Yes 2. Thought content was organized and goal direc diane: Yes 3. Speech was coherent and unimpaired: Yes 4. Affect was appropriate and unremarkable: Yes 5. Demeanor was calm, with no signs of agitatio n or restlessness: Yes 6. Sleep was largely unimpaired and restful: No; He indicated that he continues to experienc e sleep issues 7. No evidence of psychosis (hallucinations or delusions): Yes No evidence of psychosis 8. Mood was normal: Yes; Hampton's mood was euthymic Other Observations: Hampton was neatly groomed. He was oriented X3, alert, and cooperative. His short-t erm memory and long-term memory appeared intact. He did not demonstrate any abnormal motor movements , psychomotor agitation, or psychomotor retardation. Insight and judgment we re within normal limits. Attention and concentration were within normal l imits. RISK ASSESSMENT: He denied any current SI/HI, intent, or plan. He is aware of the [facility] of [facility] if needed. He was encouraged to contact undersigned if needed. PLAN FOR FOLLOW-UP: Next session planned for: at 2:00pm, however patient is aware that he can contact undersigned at anytime prior to the next appointment. /virgilio MESSINA PSYD Clinical Psychologist Signed: 06/01/2021 14:56 06/01/2021 ADDENDUM STATUS: COMPLETED Hampton requested that his upcoming appo intment with Dr. Oliveira be changed to [facility]. /virgilio MESSINA PSYD Clinical Psychologist Signed: 06/01/2021 14:58 Receipt Acknowledged By: * AWAITING SIGNATURE * LALO LIGHT * AWAITING SIGNATURE * EDITH TEJEDA * AWAITING SIGNATURE * PEDRO OLIVEIRA
--- OUTSIDE RECORDS SUMMARY | 2022-02-03 00:38 | XMS_ITS | Encounter Summary ---
:1950 Author Organization Department [facility] rs Address [address] [place] [address] Support Name Relationship Address Phone LORI HOPKINS Unavailable [address] [place] [address] [place] [address] LORI HOPKINS Unavailable [address] [facility] [place] [address] Insurance Providers: All historical and current Section [...] Number Silva JARRED PREFERRED STAND May 08 [id number] PROVIDER SHIVA 2011 [id number] [phone] RIAN MILLAN FEDERAL ORGANIZAT SELF ION (PPO) [place]BS [place] PREFERRED STAND May 08 [id number] [phone] JAMES CE PATIENT FEP PROVIDER SHIVA 2010 87 123 RIAN MILLAN ORGANGERMANAT INDIV ION (PPO) IDUAL BCBS OF PREFERRED STAND May 08 [id number] [phone] JAMES CE PATIENT MASS PROVIDER SHIVA 2010 87 3 RIAN MILLAN FEDERAL ORGANIZAT SELF ION (PPO) BCBS OF PREFERRED STAND May 08 [id number] [phone] JAMES CE PATIENT MASS FEP PROVIDER SHIVA 2010 87 6 RIAN MILLAN ORGANIZAT SELF ION (PPO) BCBS OF DENTAL STAND May 08, DENTAL [id number] [phone] SANDEEP, PATIENT MASS FEP INSURANCE SHIVA 2010 87 6 RIAN DENTAL [place]BS OF [place] MEDICARE FEP Dec 06 [id number] 800 SANDEEP PATIENT FEP SECONDARY STAND 2019 87 [phone] RIAN MILLAN (NO B SHIVA EXC) MEDSE C CAREMARK PRESCRIPT FEP Dec 06, [id number] 800 SANDEEP PATIENT FEP ION ONLY 2014 0 [phone] RIAN MILLAN CAR[place]ARK PRESCRIPT May 08, [id number] [phone] EDUARDO ENCEstella PATIENT FEP ION 2011 0 87 1 RIAN MILLAN PRESCRIPT CAREM May 08, [id number] [phone] EDUARDO ENCEstella, PATIENT FEP BCBS ION ARK 2011 0 87 1 RIAN FEPRX PLAN CAREMARK PRESCRIPT May 08, [id number] [phone] LAWR ENCE PATIENT FEPRX PLAN ION 2011 0 87 331 RIAN MILLAN-F PRESCRIPT FEPRX May 08, [id number] [phone] LA WRENCE PATIENT EP BCBS ION /PT D 2010 0 87 1 RIAN MILLAN [facility] May 18, [id number] [phone] JAMES CE, PATIENT RE JONATAN AL 2003 32 7 RIAN CE ORGANIZ EXPRESS PRESCRIPT CONNE May 18, [id number] [phone] JAMES CE, PATIENT SCRIPTS ION CTICA 2003 [id number] RIAN ([id number]) RE MEDICARE MEDICARE PART Oct 06, PART A [id number] JAMES CE, PATIENT (WNR) (M) A 2012 UP33 00 [place] MEDICARE MEDICARE PART Oct 06, PART B [id number] JAMES CE, PATIENT (WNR) (M) B 2012 UP33 00 [place] MEDICARE MEDICARE PART Oct 06, PART A [id number] JAMES CE, PATIENT (WNR) (M) A 2012 UP33 2 [place] MEDICARE MEDICARE PART Oct 06, PART B [id number] JAMES CE, PATIENT (WNR) (M) B 2012 UP33 2 [place] MEDICARE MEDICARE PART Oct 06, PART A [id number] Lisa HOPKINS (WNR) (M) A 2012 UP28 [id number] [place] MEDICARE MEDICARE PART Oct 06, PART A [id number] [phone] JAMES CE, PATIENT (WNR) (M) A 2012 UP33 7 RIAN MEDICARE MEDICARE PART Oct 06, PART B [id number] [phone] JAMES CE, PATIENT (WNR) (M) B 2012 UP33 7 RIAN MEDICARE MEDICARE PART Oct 06, PART B [id number] 800 Lisa HOPKINS ATIENT (WNR) (M) B 2012 UP33 [phone] RIAN MEDICARE MEDICARE PART Dec 06, PART D [id number] Lisa HOPKINS ATIENT PART D (M) D 2018 UP33 [phone] RIAN (WNR) MEDICARE MEDICARE PART Oct 06, PART D [id number] [phone] JAMES CE, PATIENT PART D (M) D 2012 UP33 7 RIAN (WNR) MEDICARE PRESCRIPT PART Oct 06, PART D [id number] LAWRE NCE, PATIENT PART D ION D 2012 32A 0 RIAN (WNR) MEDICARE PRESCRIPT PART Oct 06, PART D [id number] LAWRE NCE, PATIENT PART D ION D 2012 UP33 0 RIAN (WNR) Selected Encounter This section includes the information on record at [place] for the Encounter. Date/Time Encounter Type Encounter Reason Provider Source Description May 10, 2021 09:19 Outpatient PRIMARY MARIBETH SANDERSON AM Encounter CARE/MEDICINE E DAVINA Estella Encounter Template Text not used by [place] [...] ty Name Jun 01, 2021 02:00 PM AMBULATORY - [facility] Jun 02, 2021 12:30 PM AMBULATORY - [facility] Jun 04, 2021 12:30 PM AMBULATORY - [facility]CHIATRY [facility] Jun 08, 2021 02:00 PM AMBULATORY - [facility] Cosmo [facility] Jun 16, 2021 02:00 PM AMBULATORY - PS[facility]CHIATRY [facility] Jun 18, 2021 01:00 PM AMBULATORY - MEDICINE [facility] SHANIQUA [facility] Jun 22, 2021 02:00 PM AMBULATORY PSYCHIAT[facility] Jun 23, 2021 01:00 PM [facility] Jul 07, 2021 11:00 AM AMBULAT[facility] - MEDICINE [facility] Jul 13, 2021 02:00 PM AMBULATORY PSYCHIATRY [facility] Jul 20, 2021 02:30 PM AMBULATORY [facility] Aug 05, 2021 02:00 PM AMBULATORY PSYCHIATRY [facility] Aug 16, 2021 02:00 PM AMBULATORY PSYCHIATRY [facility] Aug 26, 2021 02:00 PM AMBULATORY [facility] Sep 03, 2021 11:00 AM AMBULATORY - REHAB [facility] Oct 28, 2021 02:00 PM [facility] Lab Results: +/- 30 days of the encounter This section includes the Chemistry and Hematology Lab Results on record with [place] for the patient. Radiology Reports and Pathology Reports are provided separately, in subsequent sections.Lab Results This section contains the Chemistry/Hematology Results that were resulted 30 days before or 30 daysafter the date of the Encounter. Date/Time Source Result Type Result - Unit Interpretation Reference Range Comment Apr 20, 2021 [facility] VITAMIN D (25-OH) Specimen Type : SERUM 11:34 AM Comment: GLUCOS E Verified by repeat analysis. CALLED DR NG 04/20/21@1432 [facility] Read-back was completed. Ordering Provid er: ROMULO CHONG Report Released Date/Time: Apr 07, 2021 01:54 PM Reporting Lab: [facility] [address] [facility] [address] Performing Lab: [address] [address] VITAMIN D (25-OH) <13 L 20-50 Apr 20, 2021 [facility] BASIC METABOLIC Specimen Type: SERUM 11:34 AM PANEL (fasting) Comment: GLUCOS E Verified by repeat analysis. CALLED DR NG 04/20/21@1432 [facility] Read-back was completed. Ordering Provid er: ROMULO CHONG Report Released Date/Time: Apr 07, 2021 01:54 PM Reporting Lab: [place] [address] [address] Performing Lab: [address] [address] UREA NITROGEN 25 7-25 GLUCOSE 48 LL 65-100 SODIUM 141 135-145 POTASSIUM 4.3 3.5-5.0 CHLORIDE 105 100-110 CO2 29 20-30 CREATININE, Serum 1.82 H 0.50-1.40 eGFR (IDMS) 37 L >60 Apr 20, 2021 [facility] LIPID PANEL FASTING Specimen Ty pe: SERUM 11:34 AM Comment: GLUCOS E Verified by repeat analysis. CALLED DR NG 04/20/21@215[facility] Read-back was completed. Ordering Provid er: ROMULO CHONG Report Released Date/Time: Apr 07, 2021 01:54 PM Reporting Lab: [address] [address] Performing Lab: [address] [address] CHOLESTEROL 181 0-199 TRIGLYCERIDE 193 H 0-150 LDL calculated 95 0-129 CHOL/HDL 3.9 HDL CHOLESTEROL 47 40-60 Apr 20, 2021 [facility] HEMOGLOBIN A1C PANEL Specimen T ype: BLOOD [...] Apr 07, 2021 01:54 PM Reporting Lab: [address] [address] Performing Lab: [address] [address] HEMOGLOBIN A1C 9.2 H 4.0-5.6 Apr 20, 2021 11:34 VINOD LIVER FUNCTION Specimen Typ e: SERUM AM Comment: GLUCOS E Verified by repeat analysis. CALLED DR NG 04/20/21@1432 [facility] Read-back was completed. Ordering Provid er: ROMULO CHONG Report Released Date/Time: Apr 07, 2021 01:54 PM Reporting Lab: [facility] [address] [facility] [address] Performing Lab: [facility] [address] [facility] [address] PROTEIN,TOTAL 6.7 6.0-8.3 ALBUMIN 3.3 L 3.5-5.0 ALKALINE PHOSPHATASE 60 40-150 AST 14 5-34 ALT 15 0-55 BILIRUBIN, TOTAL 0.4 0.2-1.2 Apr 20, 2021 11:34 AM [facility] TSH Specimen Type: SERUM Comment: GLUCOS E Verified by repeat analysis. CALLED DR NG 04/20/21@1432 [facility] Read-back was completed. Ordering Provid er: ROMULO CHONG Report Released Date/Time: Apr 07, 2021 01:54 PM Reporting Lab: [facility] [address] [facility] [address] Performing Lab: [facility] [address] [facility] [address] TSH 3.57 0.35-5.00 Apr 20, 2021 [facility] MICROALBUMIN Specimen Type: URINE 11:34 AM CREATININE RATIO PANEL No commen t entered. Ordering Provid er: ROMULO CHONG Report Released Date/Time: Apr 07, 2021 01:54 PM Reporting Lab: [facility] [place] [facility] [address] [facility] [address] Performing Lab: [facility] [address] MICROALBUMIN/CREATININE RATIO canc 0-29.9 MICROALBUMIN,QUANTITATIVE > 300.0 RR U NAVAIL CREATININE URINE 173.58 Apr 20, 2021 [facility] CBC AND DIFF Specimen Type: BLOOD 11:34 AM (AUTO) No comment enter ed. Ordering Provid er: ROMULO CHONG Report Released Date/Time: Apr 07, 2021 01:54 PM Reporting Lab: [facility] [address] [facility] [address] Performing Lab: [facility] [address] [facility] [address] WBC 10.37 4.50-11.00 RBC 4.83 4.23-5.66 HGB 14.2 12.8-17 HCT 44.0 39.2-50.4 MCV 91.1 82-99 MCHC 32.3 30.8-35.1 PLT 286 140-360 RDW-CV 13.0 12.0-16.0 Harlan, Abs 1.04 0.30-1.10 MCH 29.4 26.2-32.6 Neut % 42.3 Lymph % 42.3 Harlan % 10.0 Eos % 4.5 Baso % 0.7 Neut, Abs 4.38 2.20-7.60 Lymph, Abs 4.39 H 1.00-3.20 Eos, Abs 0.47 H 0.03-0.44 Baso, Abs 0.07 0.01-0.13 Immature Gran % 0.2 Immature Gran, Abs 0.02 0.00-0.06 Encounter Notes: All associated encounter notes This section contains the clinical notes associated to the Encounter. Date/Time Encounter Note(s) Provider Source May 10, 2021 09:19 AM PRIMARY CARE SECURE MESSAGING: MAGNUS SANDERSON [facility] LOCAL TITLE: PRIMARY CARE SECURE MESSAGING [facility] STANDARD TITLE: PRIMARY CARE SECURE MESSAGING DATE OF NOTE: MAY 10, 2021@09:19 ENTRY DATE: MAY 10, 2021@09:20:13 AUTHOR: MAGNUS SANDERSON EXP COSIGNER: URGENCY: STATUS: COMPLETED PRIMARY CARE SECURE MESSAGING Has ADDENDA * ------Original Message Sent: 05/10/2021 04:32 AM From: RIAN HOPKINS To: ARLETTE,O_PRIMARY CARE_SPOPC Subject: right knee surgery Hi Doc I talk to my heart doctor about t he .5 % on my blood presser med and he was o.k. with it . I also went to see my surgeon about my right knee about the pain. He took 5 or 6 x-rays and told me that it been a year since my surgery and there is a lot of arthritis in the knee and the only thing he could do know would be a knee replacement and I am not hall re I want that. Does the [place] have MRI machine that I can have another one don e just to make sure . I have had a lot of surgery's and I would just like to make sure that's the real problem. The pain is great b ut the knee surgery will hurt even more for at lest month and I just what to be sure I need it . Can you check this out and help me get one done. Thanks Juan Carlos Jeffrey2 /es/ Magnus Sanderson RN Registered Nurse Signed: 05/10/2021 09:20 Receipt Acknowledged By: 05/24/2021 19:54 /es/ ROMULO CHONG MD PHYSICIAN 05/10/2021 ADDENDUM STATUS: COMPLETED [facility] orthopedics auth includes-- 2. Diagnostic imaging relevant to the referred condition on the consult order Please refer to ortho provider for imagi ng questions. /justine/ WAGNER FELTON,JACK,RN CHOICE RN COORDINATOR Signed: 05/10/2021 10:48 05/24/2021 ADDENDUM STATUS: COMPLETED spoke with pt- he was seen by ortho end of 04/26 21 will likely need Knee surgery, told pt if any ad ditional imaging is indicated will be ordered by ortho and is covered by ortho consult. pt verbilized understanding. /es/ ROMULO CHONG MD PHYSICIAN Signed: 05/24/2021 19:55
--- OUTSIDE RECORDS SUMMARY | 2022-02-03 00:38 | XMS_ITS | Encounter Summary ---
:1950 Author Organization Department [facility] rs Address [address] [place] [address] Support Name Relationship Address Phone LORI HOPKINS Unavailable [address] [place] [address] [phone] 1 [place] [address] LORI HOPKINS Unavailable [address] [place] [address] Insurance Providers: All historical and current Section [...] Number Silva JARRED PREFERRED STAND May 08 [id number] PROVIDER SHIVA 2010 [id number] RIAN MILLAN FEDERAL ORGANIZAT SELF ION (PPO) BCBS [place] PREFERRED STAND May 08 [id number] [phone] JAMES CE PATIENT FEP PROVIDER SHIVA 2010 87 123 RIAN MILLAN ORGANGERMANAT INDIV ION (PPO) IDUAL BCBS OF PREFERRED STAND May 08 [id number] [phone] JAMES CE PATIENT MASS PROVIDER SHIVA 2010 87 3 RIAN MILLAN FEDERAL ORGANIZAT SELF ION (PPO) BCBS OF PREFERRED STAND May 08 [id number] [phone] JAMES CE PATIENT MASS FEP PROVIDER SHIVA 2010 87 6 RIAN MILLAN ORGANIZAT SELF ION (PPO) BCBS OF DENTAL STAND May 08, DENTAL [id number] [phone] SANDEEP, PATIENT MASS FEP INSURANCE SHIVA 2010 87 6 RIAN DENTAL [place]BS OF [place] MEDICARE FEP Dec 06 [id number] 800 SANDEEP PATIENT FEP SECONDARY STAND 2019 87 [phone] RIAN MILLAN (NO B SHIVA EXC) MEDSE C [place] PRESCRIPT FEP Dec 06, [id number] 800 SANDEEP PATIENT FEP ION ONLY 2014 0 87 [phone] RIAN MILLAN [place] PRESCRIPT May 08, [id number] [phone] EDUARDO MATTHEW PATIENT FEP ION 2011 0 87 1 RIAN MILLAN PRESCRIPT CAREM May 08, [id number] [phone] EDUARDO MATTHEW, PATIENT FEP BCBS ION ARK 2011 0 87 1 RIAN FEPRX PLAN CAR[place]ARK PRESCRIPT May 08, [id number] [phone] LAWR ENCEstella PATIENT FEPRX PLAN ION 2011 0 87 331 RIAN MILLAN-F PRESCRIPT FEPRX May 08, [id number] [phone] LA JENENCE PATIENT EP BCBS ION /PT D 2010 0 87 1 RIAN MILLAN [facility] May 18, [id number] [phone] JAMES CE, PATIENT RE JONATAN AL 2003 32 7 RIAN CE ORGANIZ EXPRESS PRESCRIPT CONNE May 18, [id number] [phone] JAMES CE, PATIENT SCRIPTS ION CTICA 2002 [id number] 7 RIAN ([id number]) RE MEDICARE MEDICARE PART Oct 06, PART A [id number] 800 Lisa HOPKINS (WNR) (M) A 2012 UP33 [phone] RIAN MEDICARE MEDICARE PART Oct 06, PART B [id number] 800 Lisa HOPKINS (WNR) (M) B 2012 UP33 [phone] RIAN MEDICARE MEDICARE PART Oct 06, PART A [id number] [phone] JAMES CE, PATIENT (WNR) (M) A 2012 UP33 00 [place] MEDICARE MEDICARE PART Oct 06, PART B [id number] [phone] JAMES CE, PATIENT (WNR) (M) B 2013 UP33 00 [place] MEDICARE MEDICARE PART Oct 06, PART A [id number] JAMES CE, PATIENT (WNR) (M) A 2012 UP33 2 RIAN MEDICARE MEDICARE PART Oct 06, PART B [id number] JAMES CE, PATIENT (WNR) (M) B 2013 UP33 7 RIAN MEDICARE MEDICARE PART Oct 06, PART A [id number] [id number] JAMES CE, PATIENT (WNR) (M) A 2012 UP33 7 RIAN MEDICARE MEDICARE PART Oct 06, PART B [id number] JAMES CE, PATIENT (WNR) (M) B 2012 UP33 2 RIAN MEDICARE MEDICARE PART Dec 06, PART D [id number] Lisa HOPKINS ATIENT PART D (M) D 2018 UP33 [phone] RIAN (WNR) MEDICARE PRESCRIPT PART Oct 06, PART D [id number] LAWRE NCE, PATIENT PART D ION D 2012 32A 0 RIAN (WNR) MEDICARE PRESCRIPT PART Oct 06, PART D [id number] LAWRE NCE, PATIENT PART D ION D 2012 UP33 0 RIAN (WNR) MEDICARE MEDICARE PART Oct 06, PART D [id number] [id number] JAMES CE, PATIENT PART D (M) D 2012 UP33 7 RIAN (WNR) Selected Encounter This section includes the information on record at [place] for the Encounter. Date/Time Encounter Type Encounter Reason Provider Source Description Jun 01, 2021 11:38 Outpatient TELEPHONE AARON MESSINA AM Encounter IHE Encounter Template Text not used [...] 02, 2021 12:30 PM AMBULATORY - [facility]CHIATRY [place] Jun 04, 2021 12:30 PM [facility]BUL[facility]ORY - [facility]CHIATRY [place] Jun 08, 2021 02:00 PM AMBULATORY - REHAB MEDICINE [facility] Cosmo [facility] Jun 16, 2021 02:00 PM AMBULATORY - [facility]CHIATRY [place] Jun 18, 2021 01:00 PM [facility]BULATORY - MEDICINE [facility] SHANIQUA [facility] Jun 22, 2021 02:00 PM AMBULATORY - PSYCHIATRY [place] Jun 23, 2021 01:00 PM AMBUL[facility] - [place]ICINE [place] [facility]A [facility] Jul 07, 2021 11:00 AM AMBULATORY - MEDICINE [place] Jul 13, 2021 02:00 PM AMBULATORY - PSYCHIATRY [place] Jul 20, 2021 02:30 PM AMBULATORY - PSYCHIATRY [place] Aug 05, 2021 02:00 PM AMBULATORY - PSYCHIATRY [place] Aug 16, 2021 02:00 PM AMBULATORY - [facility]YCHIATRY [place] Aug 26, 2021 02:00 PM AMBULATORY - [facility]CHIATRY [place] Sep 03, 2021 11:00 AM AMBULATORY - REHAB MEDICINE [facility] Oct 28, 2021 02:00 PM AMBULATORY PSYCHIATRY [place] Encounter Notes: All associated encounter notes This section contains the clinical notes associated to the Encounter. Date/Time Encounter Note(s) Provider Source Jun 01, 2021 11:38 AM MENTAL HEALTH TELEPHONE ENCOUNTER NOTE: AARON NICHOLS [place] LOCAL TITLE: TELEPHONE NOTE/MENTAL HEALTH STANDARD TITLE: MENTAL HEALTH TELEPHONE ENCOUNTE R NOTE DATE OF NOTE: JUN 01, 2021@11:38 ENTRY DATE: JUN 01, 2021@11:38:27 AUTHOR: AARON MESSINA EXP COSIGNER: URGENCY: STATUS: COMPLETED [place] left a VM message for undersigned. He in dicated that he would like a return call as he was uncertain if his a ppointment changed due to the pandemic (i.e., in-person; [facility]). Undersigned called and spoke to . He stated that he would like to change his appointment to [facility] for today. /justine/ AARON MESSINA PSYD Clinical Psychologist Signed: 06/01/2021 11:39
--- OUTSIDE RECORDS SUMMARY | 2022-02-03 00:38 | XMS_ITS | Encounter Summary ---
:1950 Author Organization Department [facility] rs Address [address] [place] [address] Support Name Relationship Address Phone LORI HOPKINS Unavailable [address] [place] [address] [place] [address] LORI HOPKINS Unavailable [address] [facility] [place] [address] Insurance Providers: All historical and current Section [...] Number Silva JARRED PREFERRED STAND May 08 [id number] PROVIDER SHIVA 2011 [id number] RIAN MILLAN FEDERAL ORGANIZAT SELF ION (PPO) BCBS ID PREFERRED STAND May 08 [id number] [phone] JAMES CE PATIENT FEP PROVIDER SHIVA 2010 87 123 RIAN MILLAN ORGANGERMANAT INDIV ION (PPO) IDUAL BCBS OF PREFERRED STAND May 08 [id number] [phone] JAMES CE PATIENT MASS PROVIDER SHIVA 2010 87 3 RIAN MILLAN FEDERAL ORGANIZAT SELF ION (PPO) BCBS OF PREFERRED STAND May 08 [id number] [phone] JAMES CE PATIENT MASS FEP PROVIDER SHIVA 2010 87 6 RIAN MILLAN ORGANIZAT SELF ION (PPO) BCBS OF DENTAL STAND May 08, DENTAL [id number] [phone] SANDEEP, PATIENT MASS FEP INSURANCE SHIVA 2010 87 6 RIAN DENTAL [place] OF [place] MEDICARE FEP Dec 06 [id number] 800 SANDEEP PATIENT FEP SECONDARY STAND 2019 [phone] RIAN MILLAN (NO B SHIVA EXC) MEDSE C CAREMARK PRESCRIPT FEP Dec 06, [id number] SANDEEP PATIENT FEP ION ONLY 2014 0 [phone] RIAN MILLAN CARELIONEL PRESCRIPT May 08, [id number] [phone] EDUARDO ENCEstella PATIENT FEP ION 2011 0 87 1 RIAN MILLAN PRESCRIPT CAREM May 08, [id number] [phone] EDUARDO ENCEstella, PATIENT FEP BCBS ION ARK 2011 0 87 1 RIAN FEPRX PLAN CAREMARK PRESCRIPT May 08, [id number] [phone] LAWR ENCE PATIENT FEPRX PLAN ION 2011 0 87 331 RIAN MILLAN-F PRESCRIPT FEPRX May 08, [id number] [phone] LA WRENCE PATIENT EP BCBS ION /PT D 2010 0 87 1 RIAN MILLAN [facility] May 18, [id number] [phone] JAMES CE, PATIENT [facility] 32 7 RIAN CE ORGANIZ EXPRESS PRESCRIPT CONNE May 18, [id number] [phone] JAMES CE, PATIENT SCRIPTS ION CTICA 2003 [id number] RIAN ([id number]) RE MEDICARE MEDICARE PART Oct 06, PART B [id number] JAMES CE, PATIENT (WNR) (M) B 2012 UP33 2 [place] MEDICARE MEDICARE PART Oct 06, PART A [id number] JAMES CE, PATIENT (WNR) (M) A 2013 UP33 00 [place] MEDICARE MEDICARE PART Oct 06, PART B [id number] JAMES CE, PATIENT (WNR) (M) B 2013 UP33 00 [place] MEDICARE MEDICARE PART Oct 06, PART A [id number] Lisa HOPKINS (WNR) (M) A 2013 UP33 [id number] [place] MEDICARE MEDICARE PART Oct 06, PART A [id number] JAMES CE, PATIENT (WNR) (M) A 2013 UP33 7 [place] MEDICARE MEDICARE PART Oct 06, PART B [id number] JAMES CE, PATIENT (WNR) (M) B 2012 UP33 7 RIAN MEDICARE MEDICARE PART Oct 06, PART B [id number] 800 Lisa HOPKINS ATIENT (WNR) (M) B 2012 UP33 [phone] RIAN MEDICARE MEDICARE PART Oct 06, PART A [id number] JAMES CE, PATIENT (WNR) (M) A 2012 UP33 2 RIAN MEDICARE MEDICARE PART Dec 06, PART D [id number] Lisa HOPKINS ATIENT PART D (M) D 2018 UP33 [phone] RIAN (WNR) MEDICARE MEDICARE PART Oct 06, PART D [id number] [phone] JAMES CE, PATIENT PART D (M) D 2012 UP33 7 RIAN (WNR) MEDICARE PRESCRIPT PART Oct 06, PART D [id number] LAWRE NCE, PATIENT PART D ION D 2012 32A 0 RIAN (WNR) MEDICARE PRESCRIPT PART Oct 06, PART D [id number] LAWRE NCE, PATIENT PART D ION D 2012 UP33 0 RIAN (WNR) Selected Encounter This section includes the information on record at [place] for the Encounter. Date/Time Encounter Type Encounter Reason Provider Source Description May 18, 2021 07:30 Outpatient PRIMARY KIN,MARIBETH PM Encounter CARE/MEDICINE E [...] 01, 2021 02:00 PM AMBULATORY - PSYCHIATRY [place] Jun 02, 2021 12:30 PM AMBULATORY - [facility]CHIATRY [place] Jun 04, 2021 12:30 PM AMBULATORY - PSYCHIATRY [place] Jun 08, 2021 02:00 PM AMBULATORY - [place] [facility] Cosmo PANDEY [facility] Jun 16, 2021 02:00 PM AMBULATORY - PSYCHIATRY [place] Jun 18, 2021 01:00 PM AMBULATORY - MED[facility]INE [facility] SHANIQUA CASPER [facility] Jun 22, 2021 02:00 PM AMBULATORY PSYCHIATRY [place] Jun 23, 2021 01:00 PM [facility] Jul 07, 2021 11:00 AM AMBULATORY - MEDICINE [place] Jul 13, 2021 02:00 PM AMBULATORY PSYCHIATRY [place] Jul 20, 2021 02:30 PM AMBULATORY [facility] Aug 05, 2021 02:00 PM AMBULATORY PSYCHIATRY [place] Aug 16, 2021 02:00 PM AMBULATORY PSYCHIATRY [place] Aug 26, 2021 02:00 PM AMBULATORY [facility] Sep 03, 2021 11:00 AM AMBULATORY - REHAB [facility] Oct 28, 2021 02:00 PM [facility] Lab Results: +/- 30 days of [...] Interpretation Reference Range Comment Apr 20, 2021 [place] VITAMIN D (25-OH) Specimen Type : SERUM 11:34 AM Comment: GLUCOS E Verified by repeat analysis. CALLED DR NG 04/20/21@1432 [facility] Read-back was completed. Ordering Provid er: ROMULO CHONG Report Released Date/Time: Apr 07, 2021 01:54 PM Reporting Lab: [facility] [address] [facility] [address] Performing Lab: [address] [address] VITAMIN D (25-OH) <13 L 20-50 Apr 20, 2021 [place] BASIC METABOLIC Specimen Type: SERUM 11:34 AM PANEL (fasting) Comment: GLUCOS E Verified by repeat analysis. CALLED DR NG 04/20/21@1432 [facility] Read-back was completed. Ordering Provid er: ROMULO CHONG Report Released Date/Time: Apr 07, 2021 01:54 PM Reporting Lab: [facility] [address] [address] Performing Lab: [address] [address] UREA NITROGEN 25 7-25 GLUCOSE 48 LL 65-100 SODIUM 141 135-145 POTASSIUM 4.3 3.5-5.0 CHLORIDE 105 100-110 CO2 29 20-30 CREATININE, Serum 1.82 H 0.50-1.40 eGFR (IDMS) 37 L >60 Apr 20, 2021 [place] HEMOGLOBIN A1C PANEL Specimen T ype: BLOOD [...] Apr 07, 2021 01:54 PM Reporting Lab: [address] [address] Performing Lab: [address] [address] HEMOGLOBIN A1C 9.2 H 4.0-5.6 Apr 20, 2021 [place] LIPID PANEL FASTING Specimen Ty pe: SERUM 11:34 AM Comment: GLUCOS E Verified by repeat analysis. CALLED DR NG 04/20/21@[address] [place] [address] Read-back was completed. Ordering Provid er: ROMULO CHONG Report Released Date/Time: Apr 07, 2021 01:54 PM Reporting Lab: [address] [address] Performing Lab: [address] [address] CHOLESTEROL 181 0-199 TRIGLYCERIDE 193 H 0-150 LDL calculated 95 0-129 CHOL/HDL 3.9 HDL CHOLESTEROL 47 40-60 Apr 20, 2021 11:34 [place] FUNCTION Specimen Typ e: SERUM AM Comment: GLUCOS E Verified by repeat analysis. CALLED DR NG 04/20/21@1432 [facility] Read-back was completed. Ordering Provid er: ROMULO CHONG Report Released Date/Time: Apr 07, 2021 01:54 PM Reporting Lab: [facility] [address] [facility] [address] Performing Lab: [facility] [address] [facility] [address] PROTEIN,TOTAL 6.7 6.0-8.3 ALBUMIN 3.3 L 3.5-5.0 ALKALINE PHOSPHATASE 60 40-150 AST 14 5-34 ALT 15 0-55 BILIRUBIN, TOTAL 0.4 0.2-1.2 Apr 20, 2021 11:34 AM [place] TSH Specimen Type: SERUM Comment: GLUCOS E Verified by repeat analysis. CALLED DR NG 04/20/21@1432 [facility] Read-back was completed. Ordering Provid er: ROMULO CHONG Report Released Date/Time: Apr 07, 2021 01:54 PM Reporting Lab: [facility] [address] [facility] [address] Performing Lab: [facility] [address] [facility] [address] TSH 3.57 0.35-5.00 Apr 20, 2021 [place] MICROALBUMIN Specimen Type: URINE 11:34 AM CREATININE RATIO PANEL No commen t entered. Ordering Provid er: ROMULO CHONG Report Released Date/Time: Apr 07, 2021 01:54 PM Reporting Lab: [facility] [place] [facility] [address] [facility] [address] Performing Lab: [facility] [address] MICROALBUMIN/CREATININE RATIO canc 0-29.9 MICROALBUMIN,QUANTITATIVE > 300.0 RR U NAVAIL CREATININE URINE 173.58 Apr 20, 2021 [place] CBC AND DIFF Specimen Type: BLOOD 11:34 AM (AUTO) No comment enter ed. Ordering Provid er: ROMULO CHONG Report Released Date/Time: Apr 07, 2021 01:54 PM Reporting Lab: [facility] [address] [facility] [address] Performing Lab: [facility] [address] [facility] [address] WBC 10.37 4.50-11.00 RBC 4.83 4.23-5.66 HGB 14.2 12.8-17 HCT 44.0 39.2-50.4 MCV 91.1 82-99 MCHC 32.3 30.8-35.1 PLT 286 140-360 RDW-CV 13.0 12.0-16.0 [place], Abs 1.04 0.30-1.10 MCH 29.4 26.2-32.6 Neut % 42.3 Lymph % 42.3 [place] % 10.0 Eos % 4.5 Baso % 0.7 Neut, Abs 4.38 2.20-7.60 Lymph, Abs 4.39 H 1.00-3.20 Eos, Abs 0.47 H 0.03-0.44 Baso, Abs 0.07 0.01-0.13 Immature Gran % 0.2 Immature Gran, Abs 0.02 0.00-0.06 Encounter Notes: All associated encounter notes This section contains the clinical notes associated to the Encounter. Date/Time Encounter Note(s) Provider Source May 18, 2021 07:30 PM PRIMARY CARE SECURE MESSAGING: MAGNUS SANDERSON [facility] LOCAL TITLE: PRIMARY CARE SECURE MESSAGING [facility] STANDARD TITLE: PRIMARY CARE SECURE MESSAGING DATE OF NOTE: MAY 18, 2021@19:30 ENTRY DATE: MAY 18, 2021@19:31:14 AUTHOR: MAGNUS SANDERSON EXP COSIGNER: URGENCY: STATUS: COMPLETED PRIMARY CARE SECURE MESSAGING Has ADDENDA * ------Original Message Sent: 05/18/2021 03:32 PM From: RIAN HOPKINS To: ARLETTEO_PRIMARY CARE_SPOPC Subject: Meds for high blood presser. Hi Doc I just got off the ph one with Dr. Anup Chacon about my Blood presser. He said for me to do 200 mgs once a day to try a nd get my blood presser down. So can you change my scrip to 200 mgs once a day Metoprolol Tartrate . Thanks Juan Carlos /justine/ Magnus Sanderson RN Registered Nurse Signed: 05/18/2021 19:31 Receipt Acknowledged By: 05/19/2021 19:17 /justine/ ROMULO CHONG MD PHYSICIAN 05/19/2021 ADDENDUM STATUS: COMPLETED can you please get most rece nt notes from PCP and cardiology and notify me once received. allyn /justine/ ROMULO CHONG MD PHYSICIAN Signed: 05/19/2021 19:21 Receipt Acknowledged By: 05/20/2021 08:42 /es/ JOVAN VANEGAS 05/21/2021 09:15 /justine/ WAGNER CRUZ LPN LPN for CORDELL MCWILLIAMS 05/24/2021 ADDENDUM STATUS: COMPLETED spoke to pt to clarify - he was switched to topr ol 200mg daily . has [address] [facility], in 3 m [facility]. /justine/ ROMULO CHONG MD PHYSICIAN Signed: 05/24/2021 19:53
--- OUTSIDE RECORDS SUMMARY | 2022-02-03 00:38 | XMS_ITS ---
:1950 Author Organization Department [facility] rs Address [address] [place] [address] Support Name Relationship Address Phone LORI HOPKINS Unavailable [address] [place] [address] [place] [address] LORI HOPKINS Unavailable [address] [facility] [place] [address] Insurance Providers: All historical and current Section [...] Number Silva JARRED PREFERRED STAND May 08 [id number] PROVIDER SHIVA 2011 [id number] RIAN MILLAN FEDERAL ORGANIZAT SELF ION (PPO) BCBS [place] PREFERRED STAND May 08 [id number] [phone] JAMES CE PATIENT FEP PROVIDER SHIVA 2010 87 123 RIAN MILLAN ORGANGERMANAT INDIV ION (PPO) IDUAL BCBS OF PREFERRED STAND May 08 [id number] [phone] JAMES CE PATIENT MASS PROVIDER SHIVA 2010 87 3 RIAN MILLAN FEDERAL ORGANIZAT SELF ION (PPO) BCBS OF PREFERRED STAND May 08 [id number] [phone] JAMES CE PATIENT MASS FEP PROVIDER SHIVA 2010 87 6 RIAN MILLAN ORGANIZAT SELF ION (PPO) BCBS OF DENTAL STAND May 08, DENTAL [id number] [phone] SANDEEP, PATIENT MASS FEP INSURANCE SHIVA 2010 87 6 RIAN DENTAL [place] MED[place] FEP Dec 06 [id number] 800 SANDEEP PATIENT FEP SECONDARY STAND 2019 [phone] RIAN MILLAN (NO B SHIVA EXC) MEDSE C CAREMARK PRESCRIPT FEP Dec 06, [id number] SANDEEP PATIENT FEP ION ONLY 2014 0 [phone] RIAN MILLAN [place] PRESCRIPT May 08, [id number] [phone] EDUARDO ENCEstella PATIENT FEP ION 2011 0 87 1 RIAN MILLAN PRESCRIPT CAREM May 08, [id number] [phone] EDUARDO ENCEstella, PATIENT FEP BCBS ION ARK 2011 0 87 1 RIAN FEPRX PLAN CAREMARK PRESCRIPT May 08, [id number] [phone] LAWR ENCE PATIENT FEPRX PLAN ION 2011 0 87 331 RIAN MILLAN-F PRESCRIPT FEPRX May 08, [id number] [phone] LA WRENCE PATIENT EP BCBS ION /PT D 2010 0 87 1 RIAN MILLAN [facility] May 18, [id number] [phone] JAMES CE, [facility] 2003 32 7 RIAN CE ORGANIZ EXPRESS PRESCRIPT CONNE May 18, [id number] [phone] JAMES CE, PATIENT SCRIPTS ION CTICA 2003 [id number] RIAN ([id number]) RE MEDICARE MEDICARE PART Oct 06, PART A [id number] JAMES CE, PATIENT (WNR) (M) A 2012 UP33 2 [place] MEDICARE MEDICARE PART Oct 06, PART B [id number] JAMES CE, PATIENT (WNR) (M) B 2012 UP33 2 [place] MEDICARE MEDICARE PART Oct 06, PART A [id number] JAMES CE, PATIENT (WNR) (M) A 2013 UP33 00 [place] MEDICARE MEDICARE PART Oct 06, PART B [id number] JAMES CE, PATIENT (WNR) (M) B 2012 UP33 00 [place] MEDICARE MEDICARE PART Oct 06, PART A [id number] Lisa HOPKINS (WNR) (M) A 2012 [id number] [place] MEDICARE MEDICARE PART Oct 06, PART A [id number] JAMES CE, PATIENT (WNR) (M) A 2012 UP33 7 RIAN MEDICARE MEDICARE PART Oct 06, PART B [id number] [phone] JAMES CE, PATIENT (WNR) (M) B 2012 UP33 7 RIAN MEDICARE MEDICARE PART Oct 06, PART B [id number] 800 Lisa HOPKINS ATIENT (WNR) (M) B 2012 UP33 [phone] RIAN MEDICARE MEDICARE PART Dec 06, PART D [id number] Lisa HOPKINS ATIENT PART D (M) D 2018 UP33 [phone] RIAN (WNR) MEDICARE MEDICARE PART Oct 06, PART D [id number] [phone] JAMES CE, PATIENT PART D (M) D 2012 UP33 7 RIAN (WNR) MEDICARE PRESCRIPT PART Oct 06, PART D [id number] LAWRE NCE, PATIENT PART D ION D 2012 32A 0 RIAN (WNR) MEDICARE PRESCRIPT PART Oct 06, PART D [id number] LAWRE NCE, PATIENT PART D ION D 2012 UP33 0 RIAN (WNR) Selected Encounter This section includes the information on record at [place] for the Encounter. Date/Time Encounter Type Encounter Description Reason Provider Source Feb 25, 2021 12:00 Outpatient Encounter EVENT (HISTORICAL) AM E Encounter Template Text not used by [place] [...] 11, 2021 11:00 AM AMBULATORY - MEDICINE [place] Mar 31, 2021 02:00 PM [facility] Apr 09, 2021 01:00 PM [facility] [place] [facility] Apr 13, 2021 02:00 PM [facility] Apr 13, 2021 02:30 PM AMBULATORY [facility]CHIATRY [place] Apr 21, 2021 11:00 AM AMBULATORY - MEDICINE [place] Apr 22, 2021 01:00 PM AMBULATORY - REHAB MEDICINE [facility] May 03, 2021 01:45 PM AM[place]UL[place] - [place]ICINE [place] [facility] May 05, 2021 03:00 PM AMBULATORY - [place] [facility] [place] [facility] Jun 01, 2021 02:00 PM AMBULATORY - PSYCHIATRY [place] Jun 02, 2021 12:30 PM AMBULATORY [facility]YCHIATRY [place] Jun 04, 2021 12:30 PM AMBULATORY - PS[place]CHIATRY [place] Jun 08, 2021 02:00 PM AMBUL[place]ORY - [place]AB [place]ICINE [place] [facility] [facility] Jun 16, 2021 02:00 PM AMBULATORY - PSYCHIATRY [place] Jun 18, 2021 01:00 PM AMBULATORY - MEDICINE [place] [facility] [facility] Jun 22, 2021 02:00 PM AMBULATORY PSYCHIATRY [place] Jun 23, 2021 01:00 PM AMBULATORY - [place]AB MEDICINE [place] [facility] Jul 07, 2021 11:00 AM AMBULATORY - MEDICINE [place] Jul 13, 2021 02:00 PM AMBULATORY PSYCHIATRY [place] Jul 20, 2021 02:30 PM AMBULATORY [facility] Encounter Notes: All associated encounter notes This section contains the clinical notes associated to the Encounter. Date/Time Encounter Note(s) Provider Source Feb 25, 2021 12:00 AM [facility] NOTE: [place] [facility] TITLE: NON-VA OUTPATIENT NOTES [facility] STANDARD TITLE: NONVA NOTE DATE OF NOTE: FEB 25, 2021 ENTRY DATE: MAY 10@13:54:29 AUTHOR: JAMILAH MCDOWELL EXP COSIGNER: URGENCY: STATUS: COMPLETED VistA Imaging - Scanned Document SCANNED DOCUMENT SIGNATURE NOT REQUIRED Electronically Filed: 05/10/2021 by: JAMILAH MCDOWELL FINANCIAL DATA ANALYST (CIRCULAR KNIFE CUTTER MACHINE)
--- OUTSIDE RECORDS SUMMARY | 2022-02-03 00:39 | XMS_ITS ---
:1950 Author Organization Department [facility] rs Address [address] [place] [address] Support Name Relationship Address Phone LORI HOPKINS Unavailable [address] [place] [address] [place] [address] LORI HOPKINS Unavailable [address] [facility] [address] Insurance Providers: All historical and current Section [...] Number Silva JARRED PREFERRED STAND May 08 [id number] PROVIDER SHIVA 2011 87 [id number] RIAN MILLAN FEDERAL ORGANIZAT SELF ION (PPO) BCBS [place] PREFERRED STAND May 08 [id number] [phone] JAMES CE PATIENT FEP PROVIDER SHIVA 2010 87 123 RIAN MILLAN ORGANGERMANAT INDIV ION (PPO) IDUAL BCBS OF PREFERRED STAND May 08 [id number] [phone] JAMES CE PATIENT MASS PROVIDER SHIVA 2010 87 3 RIAN MILLAN FEDERAL ORGANIZAT SELF ION (PPO) BCBS OF PREFERRED STAND May 08 [id number] [phone] JAMES CE PATIENT MASS FEP PROVIDER SHIVA 2010 87 6 RIAN MILLAN ORGANIZAT SELF ION (PPO) BCBS OF DENTAL STAND May 08, DENTAL [id number] [phone] SANDEEP, PATIENT MASS FEP INSURANCE SHIVA 2010 87 6 RIAN DENTAL [place]BS OF [place] MEDICARE FEP Dec 06 [id number] SANDEEP PATIENT FEP SECONDARY STAND 2019 87 [phone] RIAN MILLAN (NO B SHIVA EXC) MEDSE C CAR[place]ARK PRESCRIPT FEP Dec 06, [id number] 800 SANDEEP PATIENT FEP ION ONLY 2014 0 [id number] [phone] RIAN MILLAN [place] PRESCRIPT May 08, [id number] [phone] EDUARDO ENCsEtella PATIENT FEP ION 2011 0 87 1 RIAN MILLAN PRESCRIPT [place] May 08, [id number] [phone] EDUARDO ENCEstella, PATIENT FEP BCBS ION ARK 2011 0 87 1 RIAN FEPRX PLAN CAR[place]ARK PRESCRIPT May 08, [id number] [phone] LAWR ENCE PATIENT FEPRX PLAN ION 2011 0 87 331 RIAN MILLAN-F PRESCRIPT FEPRX May 08, [id number] [phone] LA WRENCE PATIENT EP BCBS ION /PT D 2010 0 87 1 RIAN MILLAN [facility] May 18, [id number] [phone] JAMES CE, PATIENT RE [place] 2003 32 7 RIAN CE ORGANIZ EXPRESS PRESCRIPT CONNE May 18, [id number] [phone] JAMES CE, PATIENT SCRIPTS ION CTICA 2003 [id number] 7 RIAN ([id number]) RE MEDICARE MEDICARE PART Oct 06, PART A [id number] JAMES CE, PATIENT (WNR) (M) A 2012 UP33 00 [place] MEDICARE MEDICARE PART Oct 06, PART B [id number] [id number] JAMES CE, PATIENT (WNR) (M) B 2012 UP33 00 [place] MEDICARE MEDICARE PART Oct 06, PART A [id number] JAMES CE, PATIENT (WNR) (M) A 2012 UP33 2 [place] MEDICARE MEDICARE PART Oct 06, PART B [id number] JAMES CE, PATIENT (WNR) (M) B 2012 UP33 2 [place] MEDICARE MEDICARE PART Oct 06, PART A [id number] 800 Lisa HOPKINS (WNR) (M) A 2012 UP28 [id number] [place] MEDICARE MEDICARE PART Oct 06, PART A [id number] JAMES CE, PATIENT (WNR) (M) A 2012 UP33 7 RIAN MEDICARE MEDICARE PART Oct 06, PART B [id number] JAMES CE, PATIENT (WNR) (M) B 2012 UP33 7 [place] MEDICARE MEDICARE PART Oct 06, PART B [id number] Lisa HOPKINS ATIENT (WNR) (M) B 2012 UP33 [phone] RIAN MEDICARE MEDICARE PART Dec 06, PART D [id number] Lisa HOPKINS ATIENT PART D (M) D 2018 UP33 [phone] RIAN (WNR) MEDICARE MEDICARE PART Oct 06, PART D [id number] [id number] JAMES CE, PATIENT PART D (M) D 2012 UP33 7 RIAN (WNR) MEDICARE PRESCRIPT PART Oct 06, PART D [id number] LAWRE NCE, PATIENT PART D ION D 2012 32A 0 RIAN (WNR) MEDICARE PRESCRIPT PART Oct 06, PART D [id number] LAWRE NCE, PATIENT PART D ION D 2012 UP33 0 RIAN (WNR) Selected Encounter This section includes the information on record at [place] for the Encounter. Date/Time Encounter Type Encounter Description Reason Provider Source Mar 15, 2021 12:00 Outpatient Encounter EVENT (HISTORICAL) AM IHE Encounter Template Text not used by [place] Plan of Treatment: Future Appointments (+ 6 months) and Future Tests (+/- 45 days) The Plan of Treatment section includes future care activities for the patient from all [place] treatmentfacilities. This section includes future appointments and future orders which are active, pending orscheduled.Future Appointments This section includes appointments that were scheduled to occur 6 months from the date of the Encounter, up to a maximum of 20 appointments. The data comes from all [place] treatment facilities. Appointment Date/Time Appointment Type Appointment Facili ty Name Mar 31, 2021 02:00 PM [facility] Apr 09, 2021 01:00 [facility] Apr 13, 2021 02:00 PM [facility] Apr 13, 2021 02:30 PM AMBULAT[facility] - PS[place]CHIATRY [place] Apr 21, 2021 11:00 AM AMBULATORY - MEDICINE [place] Apr 22, 2021 01:00 PM AMBULATORY - REHAB MEDICINE [facility] May 03, 2021 01:45 PM AM[place]UL[place] - [place]IC[place] [facility] [place] [facility] May 05, 2021 03:00 PM AMBULATORY - [place] [facility] Jun 01, 2021 02:00 PM AMBULATORY - PSYCHIATRY [place] Jun 02, 2021 12:30 PM AMBULATORY - PSYCHIATRY [place] Jun 04, 2021 12:30 PM [facility]BULATORY - [facility]CHIATRY [place] Jun 08, 2021 02:00 PM AMBULATORY - [facility] MEDICINE [facility] Jun 16, 2021 02:00 PM AMBULATORY - PS[facility]CHIATRY [place] Jun 18, 2021 01:00 PM [facility] - [facility] [place] [facility] Jun 22, 2021 02:00 PM AMBULATORY - [facility]CHIATRY [place] Jun 23, 2021 01:00 PM [facility]ULAT[facility] - [facility] MEDICINE [facility] Jul 07, 2021 11:00 AM AMBULATORY - MEDICINE [place] Jul 13, 2021 02:00 PM AM[facility]ULATORY [facility] [place] Jul 20, 2021 02:30 PM AMBULATORY [facility] Aug 05, 2021 02:00 PM AMBULATORY [facility] Encounter Notes: All associated encounter notes This section contains the clinical notes associated to the Encounter. Date/Time Encounter Note(s) Provider Source Mar 15, 2021 12:00 AM [facility]VA NOTE: [facility] LOCAL TITLE: NON-[facility] T[facility]: NONVA NOTE DATE OF NOTE: MAR 15, 2021 ENTRY DATE: JUN 01 022@17:25:30 AUTHOR: JOHN ORTIZ EXP COSIGNER: URGENCY: STATUS: COMPLETED VistA Imaging - Scanned Document SCANNED DOCUMENT SIGNATURE NOT REQUIRED Electronically Filed: 06/01/2021 by: JOHN ORTIZ LAB SUPPORT SERVICE TECH
--- OUTSIDE RECORDS SUMMARY | 2022-02-03 00:39 | XMS_ITS | Encounter Summary ---
:1950 Author Organization [facility] Address [address] [place] [id number] Support Name Relationship Address Phone LORI HOPKINS Unavailable [address] [facility] [place] [address] LORI HOPKINS Unavailable [address] [facility] [place] [address] Insurance Providers: All historical and current Section [...] Number Silva JARRED PREFERRED STAND May 08 [id number] [phone] PROVIDER SHIVA 2010 [id number] [phone] RIAN MILLAN FEDERAL ORGANIZAT SELF ION (PPO) [place] PREFERRED [place]AND May 08 [id number] [phone] JAMES CE PATIENT FEP PROVIDER SHIVA [phone] RIAN MILLAN ORGANGERMANAT INDIV ION (PPO) IDUAL BCBS OF PREFERRED STAND May 08 [id number] [phone] JAMES CE PATIENT MASS PROVIDER SHIVA [phone] [id number] RIAN MILLAN FEDERAL ORGANIZAT SELF ION (PPO) BCBS OF PREFERRED STAND May 08 [id number] [phone] JAMES CE PATIENT MASS FEP PROVIDER SHIVA [phone] RIAN MILLAN ORGANIZAT SELF ION (PPO) BCBS OF DENTAL STAND May 08, DENTAL [id number] [phone] SANDEEP, PATIENT MASS FEP INSURANCE SHIVA [phone] 6 RIAN DENTAL BCBS OF [place] MEDICARE FEP Dec 06 [id number] SANDEEP PATIENT FEP SECONDARY STAND 2019 [phone] RIAN MILLAN (NO B SHIVA EXC) MEDSE C [place] PRESCRIPT FEP Dec 06, [id number] SANDEEP PATIENT FEP ION ONLY 2013 [phone] RIAN MILLAN PRESCRIPT May 08, [id number] [phone] EDUARDO MATTHEW PATIENT FEP ION 2011 0 [phone] 1 RIAN MILLAN PRESCRIPT CAREM May 08, [id number] [phone] EDUARDO MATTHEW, PATIENT FEP BCBS ION ARK 2011 0 [phone] 1 RIAN FEPRX PLAN [place] PRESCRIPT May 08, [id number] [phone] [phone] ENCEstella PATIENT FEPRX PLAN ION 2010 0 [phone] RIAN MILLAN-F PRESCRIPT FEPRX May 08, [id number] [phone] LA KVNG PATIENT EP BCBS ION /PT D 2010 0 87 1 RIAN MILLAN [facility] May 18, [id number] [phone] JAMES CE, PATIENT RE JONATAN AL 2003 [id number] RIAN CE ORGANIZ EXPRESS PRESCRIPT CONNE May 18, [id number] [phone] JAMES CE, PATIENT SCRIPTS ION CTICA 2002 [id number] RIAN ([id number]) RE MEDICARE MEDICARE PART Oct 06, PART B [id number] JAMES CE, PATIENT (WNR) (M) B 2012 UP33 2 [place] MEDICARE MEDICARE PART Oct 06, PART A [id number] [phone] JAMES CE, PATIENT (WNR) (M) A 2013 UP33 00 [place] MEDICARE MEDICARE PART Oct 06, PART B [id number] JAMES CE, PATIENT (WNR) (M) B 2013 UP33 00 [place] MEDICARE MEDICARE PART Oct 06, PART A [id number] Lisa HOPKINS (WNR) (M) A 2012 [id number] [place] MEDICARE MEDICARE PART Oct 06, PART A [id number] [phone] JAMES CE, PATIENT (WNR) (M) A 2013 UP33 7 [place] MEDICARE MEDICARE PART Oct 06, PART B [id number] [phone] JAMES CE, PATIENT (WNR) (M) B 2012 UP33 7 [place] MEDICARE MEDICARE PART Oct 06, PART B [id number] Lisa HOPKINS ATIENT (WNR) (M) B 2012 UP33 [phone] RIAN MEDICARE MEDICARE PART Oct 06, PART A [id number] JAMES CE, PATIENT (WNR) (M) A 2012 UP33 2 RIAN MEDICARE MEDICARE PART Dec 06, PART D [id number] Lisa HOPKINS ATIENT PART D (M) D 2018 UP33 [phone] RIAN (WNR) MEDICARE MEDICARE PART Oct 06, PART D [id number] JAMES CE, PATIENT PART D (M) D 2012 UP33 7 RIAN (WNR) MEDICARE PRESCRIPT PART Oct 06, PART D [id number] [phone] LAWRE NCE, PATIENT PART D ION D 2012 [id number] RIAN (WNR) MEDICARE PRESCRIPT PART Oct 06, PART D [id number] [phone] LAWRE NCE, PATIENT PART D ION D 2012 UP33 0 RIAN (WNR) Selected Encounter This section includes the information on record at [place] for the Encounter. Date/Time Encounter Type Encounter Reason Provider Source Description Jun 02, 2021 CASE MANAGEMENT MENTAL HEALTH ICD-10-CM E11.9 DAGO,W END 12:30 PM CLINIC - IND Type 2 diabetes Y mellitus without complications with Provider Comments: Type 2 diabetes mellitus in obese (SCT [id number]) E Encounter Template Text not used by [facility] Assessments - Encounter Diagnoses This section includes the primary and secondary diagnoses documented for the Encounter. Date/Time Primary/Secondary Diagnosis Name Provider Source Diagnosis Jun 02, 2021 PRIMARY Type 2 diabetes GUALBERTO LOZA D 01:41 PM mellitus without complications Jun 02, 2021 SECONDARY Essential (primary) GUALBERTO LOZA 01:41 PM hypertension Jun 02, 2021 SECONDARY Insomnia, GUALBERTO LOZA 01:41 PM unspecified Jun 02, 2021 SECONDARY Major depressive GUALBERTO LOZA LD 01:41 PM disorder, single episode, unspecified Jun 02, 2021 SECONDARY Post-traumatic GUALBERTO LOZA 01:41 PM stress disorder, unspecified Plan of Treatment: Future Appointments (+ 6 months) and Future Tests (+/- 45 days) The Plan of Treatment section includes future care activities for the patient [facility] [place] [facility] This section includes future appointments and future orders which are active, pending orscheduled.Future Appointments This section includes appointments that were scheduled to occur 6 months from the date of the Encounter, up to a maximum of 20 appointments. The data comes from all [place] treatment facilities. Appointment Date/Time Appointment Type Appointment Facili ty Name Jun 04, 2021 12:30 PM AMBULATORY [facility] Jun 08, 2021 02:00 PM AMBULATORY - REHAB [facility] Jun 16, 2021 02:00 PM [facility]ULATORY [facility] Jun 18, 2021 01:00 PM AMBULATORY MEDICINE [facility] SHANIQUA CASPER [facility] Jun 22, 2021 02:00 PM [facility] Jun 23, 2021 01:00 PM [facility] Jul 07, 2021 11:00 AM AMBULATORY [facility] Jul 13, 2021 02:00 PM [facility] Jul 20, 2021 02:30 PM [facility] Aug 05, 2021 02:00 PM AMBULATORY [facility] Aug 16, 2021 02:00 PM AMBULATORY [facility] Aug 26, 2021 02:00 PM [facility] Sep 03, 2021 11:00 AM [facility] Oct 28, 2021 02:00 PM [facility] Social History: Smoking Status (Most current) and Tobacco Use (All prior to encounter date) This section includes the most current, and the historical, smoking and tobacco-related health factors from the [place] facility where the Encounter took place.Current Smoking Status This section includes the most current smoking, or tobacco-related health factor, from the [place] facility where the Encounter took place. Date/Time Current Smoking Status Comment Facility September 17, 2020 02:00 PM VA-TOBACCO FORMER USER [facility] Tobacco Use History This section includes a history of the smoking, or tobacco- related health factors, that were collected on or before the date of the Encounter. The data comes from the [place] facility where the Encounter took place. Date/Time Smoking Status/Tobacco Use Comment [facility] September 17, 2020 02:00 [facility] Jan 10, 2020 02:00 PM VA-TOBACCO FORMER USER [facility] Jan 10, 2020 02:00 PM VA-TOBACCO QUIT 15 YRS OR [place] [facility] Mar 23, 2018 02:31 PM VA-TOBACCO FORMER USER [facility] Mar 23, 2018 02:31 PM VA-TOBACCO QUIT 15 YRS OR [place] MORE September 19, 2017 01:43 PM QUIT TOBACCO USE > 7 YEARS [place] September 15, 2016 01:21 PM QUIT TOBACCO USE > 7 YEARS [place] AGO quit 40 years ago May 12, 2015 10:44 AM QUIT TOBACCO USE > 7 YEARS [place] Dec 27, 2006 10:00 AM QUIT TOBACCO USE > 7 YEARS [place] Dec 26, 2005 08:41 AM QUIT TOBACCO USE 1-7 YEARS [place] Aug 11, 2005 08:42 AM QUIT TOBACCO USE IN PAST [facility] Dec 09, 2004 08:20 AM QUIT TOBACCO USE IN PAST [facility] 2003Apr 02, 2004 08:07 AM QUIT TOBACCO USE IN PAST [facility] Quit several wks ago Jun 02, 2003 01:48 PM CURRENT SMOKER RADHA Reece [facility] Jan 31, 2002 01:44 PM HISTORY OF SMOKING [place] [facility] stopped tobacco 1 year ago Jan 31, 2002 01:44 PM QUIT TOBACCO USE 1-7 YEARS [place] Apr 25, 2001 03:26 PM NON-TOBACCO USER MATHEUS JONES Stopped tobacco 3 years ago September 12, 2000 03:24 PM HISTORY OF SMOKING [place] [facility] Quit cigaretts 2 years ago Encounter Notes: All associated encounter notes This section contains the clinical notes associated to the Encounter. Date/Time Encounter Note(s) Provider Source Jun 02, 2021 01:09 PM NURSING NOTE: GUALBERTO LOZA LOCAL TITLE: NURSING NOTE STANDARD TITLE: NURSING NOTE DATE OF NOTE: JUN 02, 2021@13:09 ENTRY DATE: JUN 02, 2021@13:10:06 AUTHOR: GUALBERTO LOZA EXP COSIGNER: URGENCY: STATUS: COMPLETED [place] requested medication information be prov ided to his PCP. IC METOPROLOL SUCC ER 200mg tablets directions take one tablet by mouth every day. new sugar units Humulin N - 25 units am 38 units pm Novolog - 10-12 units am 25-28 units pm /justine/ GUALBERTO LOZA, MSN, RN, CNL MENTAL HEALTH NURSE PARAPROFESSIONAL AIDE Signed: 06/02/2021 13:19 Receipt Acknowledged By: * AWAITING SIGNATURE * MAGNUS SANDERSON * AWAITING SIGNATURE * PETER CHONG Jun 02, 2021 01:09 PM MENTAL HEALTH CONSULT: GUALBERTO LOZA [facility] TITLE: CONSULT REPORT/CRANIAL ELECTROTHER APY STIMULATION STANDARD TITLE: MENTAL HEALTH CONSULT DATE OF NOTE: JUN 02, 2021@13:09 ENTRY DATE: JUN 02, 2021@13:09:28 AUTHOR: GUALBERTO LOZA EXP COSIGNER: URGENCY: STATUS: COMPLETED F: Alpha-Stim Trial [place] arrived at clinic re: Alpha-Stim Trial # 1 identified himself b y name and date of . Juan Carlos is alert and oriented to person, place, time, and situation. Juan Carlos denies SI/HI, and or the use of any alcohol or illicit drugs. Blood Pressure: 168/94 (03/25/2019 13:42) Pain: 7 (09/20/2018 13:44) Patient Height: 68 in [172.7 cm] (03/25/2019 13: 42) Patient Weight: 251 lb. [114.1 kg] (03/25/2019 1 3:42) Pulse: 55 (03/25/2019 13:42) Respiration: 18 (03/25/2019 13:42) Temperature: 96.4 F [35.8 C] (03/25/2019 13:42) D: Active problems - Computerized Problem List is t he source for the followin. Renal Impairment ([facility] [id number]) 2. Depression ([facility] [id number]) 3. Co-management 4. Tear of left rotator cuff 5. Posttraumatic stress disorder 6. Type 2 diabetes mellitus in obese 7. Mixed hyperlipidemia 8. Restless legs 9. Insomnia 10. Chronic pain 11. Herniated Disc * 12. Sleep apnea (SNOMED CT 01824014) 13. Gastroesophageal Reflux Disorder 14. Coronary artery disease (SNOMED CT 95759113) 15. Glaucoma 16. Osteoarthritis (SNOMED CT 430130246) 17. Essential hypertension (SNOMED CT 78645920) 18. Hypercholesterolemia (SNOMED CT 18162180) 19. Obesity Active Outpatient Medications (including Supplie s): Active Outpatient Medications Status 1) ATORVASTATIN CALCIUM 80MG TAB TAKE ONE TABLET BY ACTIVE MOUTH ONCE DAILY FOR CHOLESTEROL 2) BETAMETHASONE DIPROPIONATE 0.05% CREAM APPLY A THIN ACTIVE LAYER TOPICALLY TWICE DAILY FOR ITCHING/RASH 3) BIMATOPROST 0.01% OPH SOLN INSTILL 1 DROP INT O EACH ACTIVE EYE AT BEDTIME TO REDUCE PRESSURE IN THE EYE 4) BRIMONIDINE 0.2%/TIMOLOL 0.5% OPH SOLN INSTIL L 1 DROP ACTIVE INTO THE LEFT EYE TWICE DAILY 5) CHOLECALCIF 25MCG (D3-1,000UNIT) TAB TAKE ONE TABLET ACTIVE BY MOUTH ONCE DAILY FOR VITAMIN SUPPLEMENTATION 6) CYCLOSPORINE 0.05% (PF) OPH EMUL 0.4ML INSTIL L 1 DROP ACTIVE INTO EACH EYE TWICE DAILY 7) DULOXETINE HCL 30MG EC CAP TAKE THREE CAPSULE S BY ACTIVE MOUTH ONCE DAILY FOR MOOD 8) GLUCOSE 4GM CHEW TAB CHEW FOUR TABLETS BY GRISELDA TH 15 ACTIVE MIN NEEDED FOR LOW BLOOD SUGAR (<70MG/DL), RECHECK SUGAR LEVEL IN 15 MINUTES AND IF <70, T AMY ANOTHER 4 TABLET 9) INSULIN NPH HUMAN 100 U/ML INJ NOVOLIN N INJE CT 25 ACTIVE UNITS SUBCUTANEOUSLY EVERY DAY AND INJECT 45 UN ITS AT BEDTIME FOR DIABETES PRESCRIBER : DR. HARSHA LEE 10) INSULIN SYRINGE 1ML 31G 8MM USE 1 SYRINGE TW ICE DAILY ACTIVE FOR INSULIN INJECTIONS 11) INSULIN,ASPART,HUMAN 100 UNIT/ML INJ INJECT 10 UNITS ACTIVE SUBCUTANEOUSLY EVERY MORNING 30 MINUTES BEFORE BREAKFAST NEEDED AND INJECT 15 UNITS EVERY EVENING 12) OMEPRAZOLE 20MG CAP,EC TAKE TWO CAPSULES BY MOUTH ACTIVE EVERY MORNING 30 MINUTES BEFORE BREAKFAST 13) TRIAMCINOLONE ACETONIDE 0.1% CREAM APPLY A T HIN LAYER ACTIVE TOPICALLY ONCE DAILY NEEDED Active Non-VA Medications Status 1) Non-VA AMLODIPINE BESYLATE 5MG TAB 5MG BY GRISELDA TH EVERY ACTIVE DAY 2) Non-VA ASPIRIN 81MG EC TAB 81MG BY MOUTH ACTI VE 3) Non-VA BETAMETHASONE DIPROPIONATE 0.05% CREAM SMALL ACTIVE AMOUNT TOPICALLY TWICE DAILY 4) Non-VA COAL TAR 7.5% TOP EMULSION SMALL AMOUN T ACTIVE TOPICALLY TWICE DAILY 5) Non-VA FENOFIBRATE TAB 54MG BY MOUTH DAILY AC TIVE 6) Non-VA FUROSEMIDE 40MG TAB 40MG BY MOUTH TWIC E DAILY ACTIVE 7) Non-VA LOSARTAN POTASSIUM 100MG TAB 100MG BY MOUTH ACTIVE DAILY 8) Non-VA LOSARTAN POTASSIUM 50MG TAB 50MG BY MO UTH ACTIVE 9) Non-VA METOPROLOL SUCCINATE 200MG SA TAB 200M G BY ACTIVE MOUTH ONCE DAILY 10) Non-VA OXYCODONE HCL 5MG/APAP 325MG TAB 1 TA BLET BY ACTIVE MOUTH EVERY 4 TO 6 HOURS NEEDED 11) Non-VA ROPINIROLE HCL 3MG TAB 3MG BY MOUTH A CTIVE 12) Non-VA TIMOLOL MALEATE 0.5% OPH SOLN 1 DROP DAILY ACTIVE 13) Non-VA VITAMIN E 90MG (200 UNIT) CAP 200UNT BY MOUTH ACTIVE EVERY DAY 26 Total Medications A/P: is utilizing Alpha-Stim for the diagnose s of PTSD and insomnia Initial trial Dr. Herrmann suggested that [place] try the Alpha-Sti m device for anxiety, depression, and sleep. Juan Carlos was informed that the Alpha-Stim is a non- pharmacological intervention that could be helpf for managing/reducing anxiety, depression and promotes improved sleep. Juan Carlos was also informed that 3 trials are needed p rior to being issued an Alpha-Stim device of his own, Juan Carlos agrees to arlene loera. Unit Coordinator explained what to expect, demonstrated ho w to set-up, and utilize the Alpha-Stim device. Juan Carlos utilized the Alpha-Stim device for 2 0 minutes and reports he quickly noted benefit. Juan Carlos states if there was a cot I would take a nap and reports experiencing a sense of calm while using the dev ice. Juan Carlos was encouraged to be mindful of anything he notes good or bad after u sing the Alpha-Stim and will contact repairer typewriter to discuss and schedule another t rial. Unit Coordinator will order Juan Carlos his personal device if he remains interest in acquiring his own Alpha-Stim after the second tr ial is completed. Juan Carlos will be contacted and oriented to his personal Alpha-Stim once it has arrived in the clinic. Juan Carlos was also assisted with m edication needs during this encounter and picked up medications at the pharmacy after the Alpha-Stim trial was completed. Upcoming Appointments: 06/08/2021 14:00 CWM/NO/AUDIOLOGY/HAF B 06/16/2021 14:00 CWM/SO/TH/VVC/MHC/LEAVITT 06/18/2021 13:00 CWM/NO/OPTOMETRY/PROVIDER 06/22/2021 14:00 CWM/SO/TH/VVC/MHC/HERRMANN 07/13/2021 14:00 CWM/SO/TH/VVC/MHC/HERRMANN Patient provided with [facility] joe dobson([phone]) and urged to call that number at any time if he has thoughts about suicide and, or to call 911 or go to nearest E.R. if he has suicidal thoughts. [place] is aware that he can call or walk-in at anytime prior to next appointment. was provided with susi lindquist's contact information for use as needed. No barriers; Patient understands and agrees to c siobhanrent treatment plan. If has any questions, concerns, or edgar es in current health status will call or come in to the [facility]. 45 minutes spent in patient care and education. /es/ GUALBERTO LOZA, MSN, RN, CNL MENTAL HEALTH NURSE PARAPROFESSIONAL AIDE Signed: 06/02/2021 13:44
--- OUTSIDE RECORDS SUMMARY | 2022-02-03 00:40 | XMS_ITS ---
:1950 Author Organization [facility] Address [address] [place] [address] Support Name Relationship Address Phone LORI HOPKINS Unavailable [address] [place] [address] [place] [address] LORI HOPKINS Unavailable [address] [place] [address] [place] [address] Insurance Providers: All historical and current Section [...] Number Silva JARRED PREFERRED STAND May 08 [id number] PROVIDER SHIVA 2010 [id number] RIAN MILLAN FEDERAL ORGANIZAT SELF ION (PPO) [place]BS [place] PREFERRED STAND May 08 [id number] [phone] JAMES CE PATIENT FEP PROVIDER SHIVA 2010 87 123 RIAN MILLAN ORGANGERMANAT INDIV ION (PPO) IDUAL BCBS OF PREFERRED STAND May 08 [id number] [phone] JAMES CE PATIENT MASS PROVIDER SHIVA 2010 87 3 RIAN MILLAN FEDERAL ORGANIZAT SELF ION (PPO) BCBS OF PREFERRED STAND May 08 [id number] [phone] JAMES CE PATIENT MASS FEP PROVIDER SHIVA 2010 87 6 RIAN MILLAN ORGANIZAT SELF ION (PPO) BCBS OF DENTAL STAND May 08, DENTAL [id number] [phone] SANDEEP, PATIENT MASS FEP INSURANCE SHIVA 2010 87 6 RIAN DENTAL BCBS OF [place] MEDICARE FEP Dec 06 [id number] SANDEEP PATIENT FEP SECONDARY STAND 2019 [phone] RIAN MILLAN (NO B SHIVA EXC) MEDSE C CAREMARK PRESCRIPT FEP Dec 06, [id number] SANDEEP PATIENT FEP ION ONLY 2014 0 [phone] RIAN MILLAN CAREMARK PRESCRIPT May 08, [id number] [phone] EDUARDO MATTHEW PATIENT FEP ION 2011 0 87 1 RIAN MILLAN PRESCRIPT CAREM May 08, [id number] [phone] EDUARDO MATTHEW, PATIENT FEP BCBS ION ARK 2011 0 87 1 RIAN FEPRX PLAN CAREMARK PRESCRIPT May 08, [id number] [phone] LAWR ENCE PATIENT FEPRX PLAN ION 2011 0 [id number] 331 RIAN MILLAN-F PRESCRIPT FEPRX May 08, [id number] [phone] LA WRENCE PATIENT EP BCBS ION /PT D 2010 0 87 1 RIAN MILLAN [facility] May 18, [id number] [phone] JAMES CE, PATIENT RE JONATAN [place] 2003 32 7 RIAN CE ORGANIZ EXPRESS PRESCRIPT CONNE May 18, [id number] [phone] JAMES CE, PATIENT SCRIPTS ION CTICA 2003 [id number] RIAN ([id number]) RE MEDICARE MEDICARE PART Oct 06, PART A [id number] Lisa HOPKINS (WNR) (M) A 2012 UP33 [phone] RIAN MEDICARE MEDICARE PART Oct 06, PART B [id number] Lisa HOPKINS (WNR) (M) B 2012 UP33 [phone] JOSEPH MEDICARE MEDICARE PART Oct 06, PART A [id number] JAMES CE, PATIENT (WNR) (M) A 2013 UP33 00 JOSEPH MEDICARE MEDICARE PART Oct 06, PART B [id number] JAMES CE, PATIENT (WNR) (M) B 2013 UP33 00 [place]PH MEDICARE MEDICARE PART Oct 06, PART A [id number] JAMES CE, PATIENT (WNR) (M) A 2013 UP33 2 RIAN MEDICARE MEDICARE PART Oct 06, PART A [id number] JAMES CE, PATIENT (WNR) (M) A 2012 UP33 7 RIAN MEDICARE MEDICARE PART Oct 06, PART B [id number] [phone] JAMES CE, PATIENT (WNR) (M) B 2012 UP33 7 RIAN MEDICARE MEDICARE PART Oct 06, PART B [id number] JAMES CE, PATIENT (WNR) (M) B 2012 UP33 2 RIAN MEDICARE MEDICARE PART Dec 06, PART D [id number] Lisa HOPKINS ATIENT PART D (M) D 2018 UP33 [phone] RIAN (WNR) MEDICARE PRESCRIPT PART Oct 06, PART D [id number] LAWRE NCE, PATIENT PART D ION D 2012 32A 0 RIAN (WNR) MEDICARE PRESCRIPT PART Oct 06, PART D [id number] LAWRE NCE, PATIENT PART D ION D 2012 UP33 0 RIAN (WNR) MEDICARE MEDICARE PART Oct 06, PART D [id number] JAMES CE, PATIENT PART D (M) D 2012 UP33 7 RIAN (WNR) Selected Encounter This section includes the information on record at HI for the Encounter. Date/Time Encounter Type Encounter Description Reason Provider Source May 03, 2021 12:00 Outpatient Encounter COMMUNITY CARE AM CONSULT IHE Encounter Template Text not used by HI Plan of Treatment: Future Appointments (+ 6 months) and Future Tests (+/- 45 days) The Plan of Treatment section includes future care activities for the patient from all [place] treatmentfacilities. This section includes future appointments and future orders which are active, pending orscheduled.Future Appointments This section includes appointments that were scheduled to occur 6 months from the date of the Encounter, up to a maximum of 20 appointments. The data comes from all [place] treatment facilities. Appointment Date/Time Appointment Type Appointment Facili ty Name May 05, 2021 03:00 PM AMBULATORY - REHAB MEDICINE [facility] Cosmo PANDEY [facility] Jun 01, 2021 02:00 PM AMBULATORY - PSYCHIATRY [place] Jun 02, 2021 12:30 PM AMBULATORY - [facility]CHIATRY [place] Jun 04, 2021 12:30 PM AMBULATORY - PSYCHIATRY [place] Jun 08, 2021 02:00 PM AMBULATORY - REHAB MEDICINE [facility] Cosmo PANDEY [facility] Jun 16, 2021 02:00 PM AMBULATORY - PSYCHIATRY [place] Jun 18, 2021 01:00 PM AMBULATORY - MEDICINE [facility] JOSUÉN Curtis CASPER [facility] Jun 22, 2021 02:00 PM [facility] Jun 23, 2021 01:00 PM [facility] Jul 07, 2021 11:00 AM AMBULATORY MEDICINE [place] Jul 13, 2021 02:00 PM AMBULATORY PS[facility]CHI[facility]RY [place] Jul 20, 2021 02:30 PM AMBULATORY [facility] [place] Aug 05, 2021 02:00 PM AMBULATORY [facility] [place] Aug 16, 2021 02:00 PM AMBULATORY [facility] Aug 26, 2021 02:00 PM [facility] Sep 03, 2021 11:00 AM AMBULATORY - REHAB MEDICINE [facility] Oct 28, 2021 02:00 PM [facility] Lab Results: +/- 30 days of the encounter This section includes the Chemistry and Hematology Lab Results on record with HI for the patient. Radiology Reports and Pathology Reports are provided separately, in subsequent sections.Lab Results This section contains the Chemistry/Hematology Results that were resulted 30 days before or 30 daysafter the date of the Encounter. Date/Time Source Result Type Result - Unit Interpretation Reference Range Comment Apr 20, 2021 [place] VITAMIN D (25-OH) Specimen Type : SERUM 11:34 AM Comment: GLUCOS E Verified by repeat analysis. CALLED DR NG 04/20/21@1432 [facility] Read-back was completed. Ordering Provid er: ROMULO COHNG Report Released Date/Time: Apr 07, 2021 01:54 PM Reporting Lab: [facility] [address] [facility] [address] Performing Lab: [facility] [address] [facility] [address] VITAMIN D (25-OH) <13 L 20-50 Apr 20, 2021 [place] BASIC METABOLIC Specimen Type: SERUM 11:34 AM PANEL (fasting) Comment: GLUCOS E Verified by repeat analysis. CALLED DR NG 04/20/21@1432 [facility] Read-back was completed. Ordering Provid er: ROMULO CHONG Report Released Date/Time: Apr 07, 2021 01:54 PM Reporting Lab: [address] [address] Performing Lab: [address] [address] UREA NITROGEN 25 7-25 GLUCOSE 48 LL 65-100 SODIUM 141 135-145 POTASSIUM 4.3 3.5-5.0 CHLORIDE 105 100-110 CO2 29 20-30 CREATININE, Serum 1.82 H 0.50-1.40 eGFR (IDMS) 37 L >60 Apr 20, 2021 [place] LIPID PANEL FASTING Specimen Ty pe: SERUM 11:34 AM Comment: GLUCOS E Verified by repeat analysis. CALLED DR NG 04/20/21@[address] [place] [address] Read-back was completed. Ordering Provid er: ROMULO CHONG Report Released Date/Time: Apr 07, 2021 01:54 PM Reporting Lab: [address] [address] Performing Lab: [address] [address] CHOLESTEROL 181 0-199 TRIGLYCERIDE 193 H 0-150 LDL calculated 95 0-129 CHOL/HDL 3.9 HDL CHOLESTEROL 47 40-60 Apr 20, 2021 [place] HEMOGLOBIN A1C PANEL Specimen T ype: BLOOD [...] Apr 07, 2021 01:54 PM Reporting Lab: [address] [address] Performing Lab: [address] [address] HEMOGLOBIN A1C 9.2 H 4.0-5.6 Apr 20, 2021 11:34 [place] LIVER FUNCTION Specimen Typ e: SERUM AM Comment: GLUCOS E Verified by repeat analysis. CALLED DR NG 04/20/21@1432 [facility] Read-back was completed. Ordering Provid er: ROMULO CHONG Report Released Date/Time: Apr 07, 2021 01:54 PM Reporting Lab: [facility] [address] [facility] [address] Performing Lab: [facility] [address] [facility] [address] PROTEIN,TOTAL 6.7 6.0-8.3 ALBUMIN 3.3 L 3.5-5.0 ALKALINE PHOSPHATASE 60 40-150 AST 14 5-34 ALT 15 0-55 BILIRUBIN, TOTAL 0.4 0.2-1.2 Apr 20, 2021 11:34 AM [place] TSH Specimen Type: SERUM Comment: GLUCOS E Verified by repeat analysis. CALLED DR NG 04/20/21@1432 [facility] Read-back was completed. Ordering Provid er: ROMULO CHONG Report Released Date/Time: Apr 07, 2021 01:54 PM Reporting Lab: [facility] [address] [facility] [address] Performing Lab: [facility] [address] [facility] [address] TSH 3.57 0.35-5.00 Apr 20, 2021 [place] MICROALBUMIN Specimen Type: URINE 11:34 AM CREATININE RATIO PANEL No commen t entered. Ordering Provid er: ROMULO CHONG Report Released Date/Time: Apr 07, 2021 01:54 PM Reporting Lab: [facility] [address] [facility] [address] Performing Lab: [facility] [address] [address] MICROALBUMIN/CREATININE RATIO canc 0-29.9 MICROALBUMIN,QUANTITATIVE > 300.0 RR U NAVAIL CREATININE URINE 173.58 Apr 20, 2021 [place] CBC AND DIFF Specimen Type: BLOOD 11:34 AM (AUTO) No comment enter ed. Ordering Provid er: ROMULO CHONG Report Released Date/Time: Apr 07, 2021 01:54 PM Reporting Lab: [facility] [address] [facility] [address] Performing Lab: [facility] [address] [facility] [address] WBC 10.37 4.50-11.00 RBC 4.83 4.23-5.66 HGB [...] Encounter. Date/Time Encounter Note(s) Provider Source May 03, 2021 12:00 AM NONVA CONSULT: [facility] [place] LOCAL TITLE: COMMUNITY CARE-CONSULT RESULT NOTE [facility] STANDARD TITLE: NONVA CONSULT DATE OF NOTE: MAY 03, 2021 ENTRY DATE: JUN 05 022@07:57:38 AUTHOR: JAMILAH MCDOWELL EXP COSIGNER: URGENCY: STATUS: COMPLETED VistA Imaging - Scanned Document SCANNED DOCUMENT SIGNATURE NOT REQUIRED Electronically Filed: 06/05/2021 by: JAMILAH MCDOWELL GEOTECHNICAL LABORATORY TECHNICIAN (AUDIO SPECIALIST)
--- OUTSIDE RECORDS SUMMARY | 2022-02-03 00:40 | XMS_ITS | Encounter Summary ---
:1950 Author Organization [facility] Address [address] [place] [address] Support Name Relationship Address Phone LORI HOPKINS Unavailable [address] [facility] [place] [address] LORI HOPKINS Unavailable [address] [facility] [place] [address] Insurance Providers: All historical and current Section [...] Number Silva JARRED PREFERRED STAND May 08 [id number] PROVIDER SHIVA 2010 [id number] RIAN MILLAN FEDERAL ORGANIZAT SELF ION (PPO) BCBS [place] PREFERRED STAND May 08 [id number] [phone] JAMES CE PATIENT FEP PROVIDER SHIVA 2010 87 123 RIAN MILLAN ORGANGERMANAT INDIV ION (PPO) IDUAL BCBS OF PREFERRED STAND May 08 [id number] [phone] JAMES CE PATIENT MASS PROVIDER SHIVA 2010 87 3 RIAN MILLAN FEDERAL ORGANIZAT SELF ION (PPO) BCBS OF PREFERRED STAND May 08 [id number] [phone] JAMES CE PATIENT MASS FEP PROVIDER SHIVA 2010 87 6 RIAN MILLAN ORGANIZAT SELF ION (PPO) BCBS OF DENTAL STAND May 08, DENTAL [id number] [phone] SANDEEP, PATIENT MASS FEP INSURANCE SHIVA 2010 87 6 RIAN DENTAL BCBS OF [place] MEDICARE FEP Dec 06 [id number] SANDEEP PATIENT FEP SECONDARY STAND 2019 [phone] RIAN MILLAN (NO B SHIVA EXC) MEDSE C CAREMARK PRESCRIPT FEP Dec 06, [id number] SANDEEP PATIENT FEP ION ONLY 2013 0 87 [phone] RIAN MILLAN PRESCRIPT May 08, [id number] [phone] EDUARDO MATTHEW PATIENT FEP ION 2011 0 87 1 RIAN MILLAN PRESCRIPT CAREM May 08, [id number] [phone] EDUARDO MATTHEW, PATIENT FEP BCBS ION ARK 2011 0 87 1 RIAN FEPRX PLAN CAREMARK PRESCRIPT May 08, [id number] [phone] LAWR ENCEstella PATIENT FEPRX PLAN ION 2010 0 87 331 RIAN MILLAN-F PRESCRIPT FEPRX May 08, [id number] [phone] LA JENENCE PATIENT EP BCBS ION /PT D 2010 0 87 1 RIAN MILLAN [facility] May 18, [id number] [phone] JAMES CE, PATIENT RE JONATAN AL 2003 32 7 RIAN CE ORGANIZ EXPRESS PRESCRIPT CONNE May 18, [id number] [phone] JAMES CE, PATIENT SCRIPTS ION CTICA 2002 [id number] RIAN ([id number]) RE MEDICARE MEDICARE PART Oct 06, PART A [id number] Lisa HOPKINS (WNR) (M) A 2012 UP33 [phone] RIAN MEDICARE MEDICARE PART Oct 06, PART B [id number] Lisa HOPKINS (WNR) (M) B 2012 UP33 [phone] JOSEPH MEDICARE MEDICARE PART Oct 06, PART A [id number] [phone] JAMES CE, PATIENT (WNR) (M) A 2013 UP33 00 [place] MEDICARE MEDICARE PART Oct 06, PART B [id number] JAMES CE, PATIENT (WNR) (M) B 2013 UP33 00 JO[place]PH MEDICARE MEDICARE PART Oct 06, PART A [id number] JAMES CE, PATIENT (WNR) (M) A 2013 UP33 2 [place] MEDICARE MEDICARE PART Oct 06, PART A [id number] [id number] JAMES CE, PATIENT (WNR) (M) A 2013 UP33 7 [place]PH MEDICARE MEDICARE PART Oct 06, PART B [id number] [phone] JAMES CE, PATIENT (WNR) (M) B 2012 UP33 7 RIAN MEDICARE MEDICARE PART Oct 06, PART B [id number] JMAES CE, PATIENT (WNR) (M) B 2012 UP33 2 RIAN MEDICARE MEDICARE PART Dec 06, PART D [id number] SANDEEPLisa ATIENT PART D (M) D 2018 UP33 [phone] RIAN (WNR) MEDICARE PRESCRIPT PART Oct 06, PART D [id number] LAWRE NCE, PATIENT PART D ION D 2012 32A 0 RIAN (WNR) MEDICARE PRESCRIPT PART Oct 06, PART D [id number] LAWRE NCE, PATIENT PART D ION D 2012 UP33 0 RIAN (WNR) MEDICARE MEDICARE PART Oct 06, PART D [id number] JAMES CE, PATIENT PART D (M) D 2012 UP33 7 RIAN (WNR) Selected Encounter This section includes the information on record at [place] for the Encounter. Date/Time Encounter Type Encounter Reason Provider Source Description Jun 04, 2021 CASE MANAGEMENT MENTAL HEALTH ICD-10-CM G47.00 SHERIDAN LOZA 12:30 PM CLINIC - IND Insomnia, Y unspecified with Provider Comments: Insomnia ([facility] [id number]) IHE Encounter Template Text not used by [facility] Assessments - Encounter Diagnoses This section includes the primary and secondary diagnoses documented for the Encounter. Date/Time Primary/Secondary Diagnosis Name Provider Source Diagnosis Jun 04, 2021 PRIMARY Insomnia, DAGOGUALBERTO IVEY 12:56 PM unspecified Jun 04, 2021 SECONDARY Major depressive GUALBERTO LOZA LD 12:56 PM disorder, single episode, unspecified Jun 04, 2021 SECONDARY Post-traumatic GUALBERTO LOZA 12:56 PM stress disorder, unspecified Plan of Treatment: [...] The data comes from all [facility] treatment [facility]. Appointment Date/Time Appointment Type Appointment Facili ty Name Jun 08, 2021 02:00 PM AMBULATORY - REHAB MEDICINE [facility] Jun 16, 2021 02:00 PM AMBULATORY [facility] Jun 18, 2021 01:00 PM AMBULATORY MEDICINE [facility] SHANIQUA CASPER [facility] Jun 22, 2021 02:00 PM AMBULATORY [facility] Jun 23, 2021 01:00 PM AMBULATORY - REHAB MEDICINE [facility] Jul 07, 2021 11:00 AM AMBULATORY MEDICINE [facility] Jul 13, 2021 02:00 PM AMBULATORY [facility] Jul 20, 2021 02:30 PM AMBULATORY [facility] Aug 05, 2021 02:00 PM AMBULATORY [facility] Aug 16, 2021 02:00 PM AMBULATORY [facility] Aug 26, 2021 02:00 PM AMBULATORY [facility] Sep 03, 2021 11:00 AM AMBULATORY - REHAB [facility] Oct 28, 2021 02:00 PM AMBULATORY [facility] Dec 02, 2021 01:30 PM AMBULATORY [facility] Social History: Smoking Status (Most current) and Tobacco Use (All prior to encounter date) This section includes the most current, and the historical, smoking and tobacco-related health factors from the HI facility where the Encounter took place.Current Smoking Status This section includes the most current smoking, or tobacco-related health factor, from the HI facility where the Encounter took place. Date/Time Current Smoking Status Comment Facility September 17, 2020 02:00 PM VA-TOBACCO FORMER USER [facility] Tobacco Use History This section includes a history of the smoking, or tobacco- related health factors, that were collected on or before the date of the Encounter. The data comes from the HI facility where the Encounter took place. Date/Time Smoking Status/Tobacco Use Comment [facility] September 17, 2020 02:00 PM VA-TOBACCO QUIT 15 YRS OR [facility] Jan 10, 2020 02:00 PM VA-TOBACCO FORMER USER [facility] Jan 10, 2020 02:00 PM VA-TOBACCO QUIT 15 YRS OR [facility] Mar 23, 2018 02:31 PM VA-TOBACCO FORMER USER [facility] Mar 23, 2018 02:31 PM VA-TOBACCO QUIT 15 YRS OR [facility] MORE September 19, 2017 01:43 PM QUIT TOBACCO USE > 7 YEARS [facility] AGO September 15, 2016 01:21 PM QUIT TOBACCO USE > 7 YEARS [place] AGO quit 40 years ago May 12, 2015 10:44 AM QUIT TOBACCO USE > 7 YEARS [facility] Dec 27, 2006 10:00 AM QUIT TOBACCO USE > 7 YEARS [facility] Dec 26, 2005 08:41 AM QUIT TOBACCO USE 1-7 YEARS [facility] Aug 11, 2005 08:42 AM QUIT TOBACCO USE IN PAST [facility] Dec 09, 2004 08:20 AM QUIT TOBACCO USE IN PAST [facility] 2003Apr 02, 2004 08:07 AM QUIT TOBACCO USE IN PAST [facility] Quit several wks ago Jun 02, 2003 01:48 PM CURRENT SMOKER RADHA D States ocassionally Jan 31, 2002 01:44 PM HISTORY OF SMOKING [place] stopped tobacco 1 year ago Jan 31, 2002 01:44 PM QUIT TOBACCO USE 1-7 YEARS [facility] Apr 25, 2001 03:26 PM NON-TOBACCO USER MATHEUS LD Stopped tobacco 3 years ago September 12, 2000 03:24 PM HISTORY OF SMOKING [place] Quit cigaretts 2 years ago Encounter Notes: All associated encounter notes This section contains the clinical notes associated to the Encounter. Date/Time Encounter Note(s) Provider Source Jun 04, 2021 12:49 PM MENTAL HEALTH CONSULT: GUALBERTO LOZA [facility] TITLE: CONSULT REPORT/CRANIAL ELECTROTHER APY STIMULATION STANDARD TITLE: MENTAL HEALTH CONSULT DATE OF NOTE: JUN 04, 2021@12:49 ENTRY DATE: JUN 04, 2021@12:49:27 AUTHOR: GUALBERTO LOZA EXP COSIGNER: URGENCY: STATUS: COMPLETED F: Alpha-Stim Trial [place] arrived at clinic re: Alpha-Stim Trial # 2 is known to underwriter mortgage loan and identified himsel f by name and date of . Juan Carlos is alert and oriented to person, place, time , and situation. Juan Carlos denies SI/HI, and [...] he source for the followin. Renal Impairment (SCT 520511348) 2. Depression (SCT 11406484) 3. Co-management 4. Tear of left rotator cuff 5. Posttraumatic stress disorder 6. Type 2 diabetes mellitus in obese 7. Mixed hyperlipidemia 8. Restless legs 9. Insomnia 10. Chronic pain 11. Herniated Disc * 12. Sleep apnea (SNOMED CT 24012214) 13. Gastroesophageal Reflux Disorder 14. Coronary artery disease (SNOMED CT 51345008) 15. Glaucoma 16. Osteoarthritis (SNOMED CT 992454682) 17. Essential hypertension (SNOMED CT 58071513) 18. Hypercholesterolemia (SNOMED CT 87034887) 19. Obesity Active Outpatient Medications (including Supplie [...] [place] POTASSIUM 50MG TAB 50MG BY [facility] ACTIVE 9) Non-VA METOPROLOL SUCCINATE 200MG SA [...] ACTIVE EVERY DAY 26 Total Medications A/P: Dahiana is utilizing Alpha-Stim for the diagnose s of PTSD and insomnia Juan Carlos reports finding benefit from initial trial stating if I had it last night I would of used it again when I woke and couldn't get back to sleep . Juan Carlos is requesting his own Alpha-Stim which was ordered as requested. Juan Carlos utilized the Alpha-Stim device again for 20 minutes and repor ts he quickly noted similar benefit. Juan Carlos was encouraged to remain mi ndful of anything he notes good or bad after using the Alpha-Stim a nd is aware that he may contact underwriter mortgage loan to discuss as needed. Juan Carlos will be contacted and oriented to his person al Alpha-Stim once it has arrived in the clinic, he is aware that he can s chedule another trial if he wishes while waiting on his device. Upcoming Appointments: 06/08/2021 14:00 CWM/NO/AUDIOLOGY/HAF B 06/16/2021 14:00 CWM/SO/TH/VVC/MHC/LEAVITT 06/18/2021 13:00 CWM/NO/OPTOMETRY/PROVIDER 06/22/2021 14:00 CWM/SO/TH/VVC/MHC/MESSINA 07/13/2021 14:00 CWM/SO/TH/VVC/MHC/MESSINA Patient provided with [facility] joe dobson([phone]) and urged to call that number at any time if he has thoughts about suicide and, or to call 911 or go to nearest E.R. if he has suicidal thoughts. is aware that he can call or walk-in at anytime prior to next appointment. was provided with susi lindquist's contact information for use as needed. No barriers; Patient understands and agrees to artemio young treatment plan. If has any questions, concerns, or edgar es in current health status will call or come in to the [facility]. 30 minutes spent in patient care and education. /justine/ GUALBERTO LOZA, MSN, RN, CNL MENTAL HEALTH NURSE HAIRSPRING TRUING INSPECTOR Signed: 06/04/2021 13:12
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
--- OUTSIDE RECORDS SUMMARY | 2022-02-03 00:41 | XMS_ITS | Encounter Summary ---
:1950 Author Organization Department [facility] Address [address] [place] [id number] Support Name Relationship Address Phone LORI HOPKINS Unavailable [address] [place] [address] [phone] [place] [address] LORI HOPKINS Unavailable [address] [place] [address] [phone] [place] [address] Insurance Providers: All historical and current Section [...] Number Silva JARRED PREFERRED STAND May 08 [id number] [phone] PROVIDER SHIVA [phone] RIAN MILLAN FEDERAL ORGANIZAT SELF ION (PPO) BCBS [place] PREFERRED STAND May 08 [id number] [phone] JAMES CE PATIENT FEP PROVIDER SHIVA [phone] RIAN MILLAN ORGANGERMANAT INDIV ION (PPO) IDUAL BCBS OF PREFERRED STAND May 08 [id number] [phone] JAMES CE PATIENT MASS PROVIDER SHIVA [phone] RIAN MILLAN FEDERAL ORGANIZAT SELF ION (PPO) BCBS OF PREFERRED STAND May 08 [id number] [phone] JAMES CE PATIENT MASS FEP PROVIDER SHIVA [phone] RIAN MILLAN ORGANIZAT SELF ION (PPO) BCBS OF DENTAL STAND May 08, DENTAL [id number] [phone] SANDEEP, PATIENT MASS FEP INSURANCE SHIVA [phone] RIAN DENTAL [place] FEP Dec 06 [id number] SANDEEP PATIENT FEP SECONDARY STAND 2019 [phone] RIAN MILLAN (NO B SHIVA EXC) MEDSE C [place] PRESCRIPT FEP Dec 06, [id number] SANDEEP PATIENT FEP ION ONLY 2014 [phone] RIAN MILLAN PRESCRIPT May 08, [id number] [phone] EDUARDO MATTHEW PATIENT FEP ION 2011 0 87 1 RIAN MILLAN PRESCRIPT CAREM May 08, [id number] [phone] EDUARDO ENCEstella, PATIENT FEP BCBS ION ARK 2011 0 [phone] 1 RIAN FEPRX PLAN [place] PRESCRIPT May 08, [id number] [phone] ENCE PATIENT FEPRX PLAN ION 2011 0 [phone] RIAN MILLAN-F PRESCRIPT FEPRX May 08, [id number] [phone] LA WRENCE PATIENT EP BCBS ION /PT D 2010 0 87 1 RIAN MILLAN [facility] May 18, [id number] [phone] JAMES CE, PATIENT RE JONATAN AL 2003 32 7 RIAN CE ORGANIZ EXPRESS PRESCRIPT CONNE May 18, [id number] [phone] JAMES CE, PATIENT SCRIPTS ION CTICA 2003 [id number] RIAN ([id number]) RE MEDICARE MEDICARE PART Oct 06, PART A [id number] JAMES CE, PATIENT (WNR) (M) A 2013 UP33 00 [place] MEDICARE MEDICARE PART Oct 06, PART B [id number] [phone] JAMES CE, PATIENT (WNR) (M) B 2012 UP33 00 [place] MEDICARE MEDICARE PART Oct 06, PART A [id number] Lisa HOPKINS (WNR) (M) A 2012 UP33 [phone] [place] MEDICARE MEDICARE PART Oct 06, PART A [id number] [phone] JAMES CE, PATIENT (WNR) (M) A 2013 UP33 2 [place] MEDICARE MEDICARE PART Oct 06, PART B [id number] [id number] JAMES CE, PATIENT (WNR) (M) B 2012 UP33 7 [place] MEDICARE MEDICARE PART Oct 06, PART A [id number] [phone] JAMES CE, PATIENT (WNR) (M) A 2012 UP33 7 RIAN MEDICARE MEDICARE PART Oct 06, PART B [id number] [id number] JAMES CE, PATIENT (WNR) (M) B 2012 UP33 2 RIAN MEDICARE MEDICARE PART Oct 06, PART B [id number] Lisa HOPKINSIENT (WNR) (M) B 2012 UP33 [phone] RIAN MEDICARE MEDICARE PART Dec 06, PART D [id number] Lisa HOPKINS ATIENT PART D (M) D 2018 UP33 [phone] RIAN (WNR) MEDICARE PRESCRIPT PART Oct 06, PART D [id number] [phone] LAWRE NCE, PATIENT PART D ION D 2012 [id number] RIAN (WNR) MEDICARE PRESCRIPT PART Oct 06, PART D [id number] [phone] LAWRE NCE, PATIENT PART D ION D 2012 UP33 0 RIAN (WNR) MEDICARE MEDICARE PART Oct 06, PART D [id number] JAMES CE, PATIENT PART D (M) D 2012 [id number] 7 RIAN (WNR) Selected Encounter This section includes the information on record at [place] for the Encounter. Date/Time Encounter Type Encounter Reason Provider Source Description Jun 08, 2021 HEARING SERVICE AUDIOLOGY ICD-10-CM H90.3 OLGA CLOUD 02:00 PM Sensorineural E hearing loss, bilateral with Provider Comments: Sensorineural Hearing Loss, Bilateral IHE Encounter Template Text not used by [place] Assessments - Encounter Diagnoses This section includes the primary and secondary diagnoses documented for the Encounter. Date/Time Primary/Secondary Diagnosis Name Provider Source Diagnosis Aug 10, 2021 PRIMARY Sensorineural [facility], [facility] bilateral Aug 10, 2021 SECONDARY Encounter for OLGA CLOUD [place] [facility] WSTR N 10:03 AM fitting and [facility] adjustment of hearing aid Plan of Treatment: Future Appointments (+ 6 [...] 20 appointments. The data comes from all [place] treatment facilities. Appointment Date/Time Appointment Type Appointment Facili ty Name Jun 16, 2021 02:00 PM AMBULATORY [facility] Jun 18, 2021 01:00 PM AMBULATORY [facility] Jun 22[facility] 2021 02:00 PM [facility] Jun 23, 2021 01:00 PM [facility] Jul 07, 2021 11:00 AM [facility]ORY - [facility] [place] Jul 13, 2021 02:00 PM AM[facility]ULATORY [facility] [place] Jul 20, 2021 02:30 PM AMBULATORY [facility] Aug 05, 2021 02:00 PM AMBULATORY [facility] Aug 16, 2021 02:00 PM AMBULATORY [facility] Aug 26, 2021 02:00 PM AMBULATORY [facility] Sep 03, 2021 11:00 AM [facility] Oct 28, 2021 02:00 PM [facility] Dec 02, 2021 01:30 PM AMBULATORY [facility] Encounter Notes: All associated encounter notes This section contains the clinical notes associated to the Encounter. Date/Time Encounter Note(s) Provider Source Jun 08, 2021 11:42 AM AUDIOLOGY E & M NOTE: OLGA CLOUD [facility] TITLE: AUDIOLOGY CLINIC [facility] STANDARD TITLE: AUDIOLOGY E & M NOTE DATE OF NOTE: JUN 08, 2021@11:42 ENTRY DATE: JUN 08, 2021@11:42:19 AUTHOR: OLGA CLOUD EXP COSIGNER: URGENCY: STATUS: COMPLETED AUDIOLOGY CLINIC Has ADDENDA Diagnosis: bilateral sensorineural hearing loss Hearing Aid Fitting: SUBJECTIVE (S): The was seen for hearing aid fitting and issuance. S/He had previously been evaluated and found to exhibit significant hearing loss for which amplification was recommended. How does the patient/client best learn? verbal i nstruction, demonstration Does the patient/client have any cultural and re ligious beliefs, emotional barriers, physical or cognitive limitations, and communication barriers which may impact his/her ability to learn? no Desire and motivation to learn? Good OBJECTIVE (O): Physical fit of earmolds/trainmaster s and domes/hearing aids was good. Morley verified comfort. Verification of an appropriate acoustic response was obtained using Real Ear measurement s (speech mapping) and NAL- NL1 targets. The reported good subjectiv e benefit as well. Feedback manager telemetry was run. Hearing aids were found to be m eeting targets adequately and MPO was not exceeding estimated U CL. Settings stored in NICOLE. ASSESSMENT (A): The following device(s) was/were issued: Make: Oneyad Model: Evolv AI RICs Serial Numbers:[id number] / [id number] Battery size: 312 Trial Period ends: 11-02-21 Domes/wax guards, etc.: 7mm occluded/hear clear Earmold Information: n/a Construction Sales Manager size/power: 3/50 Program Settings (VC, Programs, Buttons): VCs e nabled, linked Fitting Formula: NAL-NL1 Remote programming: capable Counseling was completed today throughout todays appointment using a standardized curriculum that includes but is not limited to; realistic expectations with amplification in adverse liste camilo environments, acclimatization to own voice and e nvironmental sounds (following real-ear measurements), the importanc e of consistent use of amplification, proper insertion/removal, care an d maintenance (including wax guards/domes if appli cable), signal and alerts of devices, and charging/batteries. The was provided the opportunity to practice in office and reports confidenc e/understanding in all items reviewed. was given written reference materials to day. The was informed of and agreed to [place] christine chao on hearing aid issuance: Users are responsible for the maintenance and se curity of their devices. Determination of need to replace a hear ing aid is made by the [place] technical services assistant. Hearing aids will not be replaced i n cases of neglect, abuse, or excessive loss. Items issued are for personal use only. Prognosis for successful hearing aid use is good . PLAN (P): 1. Contact clinic with any problems/concerns. 2. The International Outcome Inventory-Hearing Aids (IOI-LLAMAS) will be mailed to the in four weeks. He/she was asked to mail back to clinic after completion. 3. Morley is interested in attending [place] via VV C. Agreed to 06-23-21 at 1pm. Patient Education Education provided on the following topics: hear ing aid management Education provided to: P Response to Education: VU, RD, PI Nguyen Patient P Family F Significant Other SO Verbalizes Understanding VU Returns Demonstration RD Performs Independently PI Lacks Comprehension LC Refused Education RE Not Applicable NA /Ck Jang, CCC-A STAFF MOLD YARD WORKER Signed: 06/08/2021 14:41 Receipt Acknowledged By: 06/10/2021 08:28 /justine/ Clark Vila, CC C-A Contractor [employer] 08/10/2021 ADDENDUM STATUS: COMPLETED Morley returned IOI-LLAMAS Outc ome Measure to clinic via mail with an overall score of 30. Based on this score: i. No follow-up call is indicated (XX) ii. Follow-up call is indicated and fitting cli nician will be notified ( ) /justine/ QUENTIN CHAUDHRY AUDIOLOGY HEALTH RECREATION COUNSELOR Signed: 08/10/2021 10:03
--- OUTSIDE RECORDS SUMMARY | 2022-02-03 00:41 | XMS_ITS | Encounter Summary ---
:1950 Author Organization Department of [facility] Address [address] [place] [address] Support Name Relationship Address Phone LORI HOPKINS Unavailable [address] [place] [address] LORI HOPKINS Unavailable [address] [place] [address] Insurance Providers: All historical and current Section [...] Number Silva ANTHZARA PREFERRED STAND May 08 [id number] PROVIDER SHIVA 2011 [id number] [phone] RIAN MILLAN FEDERAL ORGANIZAT SELF ION (PPO) BCBS [place] PREFERRED STAND May 08 [id number] [phone] JAMES CE PATIENT FEP PROVIDER SHIVA [phone] RIAN MILLAN ORGANGERMANAT INDIV ION (PPO) IDUAL BCBS OF PREFERRED STAND May 08 [id number] [phone] JAMES CE PATIENT MASS PROVIDER SHIVA 2010 87 3 RIAN MILLAN FEDERAL ORGANIZAT SELF ION (PPO) BCBS OF PREFERRED STAND May 08 [id number] [phone] JAMES CE PATIENT MASS FEP PROVIDER SHIVA 2010 87 6 RIAN MILLAN ORGANIZAT SELF ION (PPO) BCBS OF DENTAL STAND May 08, DENTAL [id number] [phone] SANDEEP, PATIENT MASS FEP INSURANCE SHIVA 2010 87 6 RIAN DENTAL [place] OF [place] MEDICARE FEP Dec 06 [id number] SANDEEP PATIENT FEP SECONDARY STAND 2019 [phone] RIAN MILLAN (NO B SHIVA EXC) MEDSE C CAREMARK PRESCRIPT FEP Dec 06, [id number] SANDEEP PATIENT FEP ION ONLY 2013 0 87 [phone] RIAN MILLAN CARELIONEL PRESCRIPT May 08, [id number] [phone] EDUARDO ENCEstella PATIENT FEP ION 2011 0 87 1 RIAN MILLAN PRESCRIPT CAREM May 08, [id number] [phone] EDUARDO ENCEstella, PATIENT FEP BCBS ION ARK 2011 0 87 1 RIAN FEPRX PLAN CAREMARK PRESCRIPT May 08, [id number] [phone] LAWR ENCE PATIENT FEPRX PLAN ION 2011 0 87 331 RIAN MILLAN-F PRESCRIPT FEPRX May 08, [id number] [phone] LA JENENCE PATIENT EP BCBS ION /PT D 2010 0 87 1 RIAN MILLAN [facility] May 18, [id number] [phone] JAMES CE, PATIENT RE JONATAN AL 2003 32 7 RIAN CE ORGANIZ EXPRESS PRESCRIPT CONNE May 18, [id number] [phone] JAMES CE, PATIENT SCRIPTS ION CTICA 2003 [id number] RIAN ([id number]) RE MEDICARE MEDICARE PART Oct 06, PART A [id number] JAMES CE, PATIENT (WNR) (M) A 2012 UP33 00 JOSEPH MEDICARE MEDICARE PART Oct 06, PART B [id number] JAMES CE, PATIENT (WNR) (M) B 2012 UP33 00 [place] MEDICARE MEDICARE PART Oct 06, PART A [id number] [id number] JAMES CE, PATIENT (WNR) (M) A 2012 UP33 2 [place] MEDICARE MEDICARE PART Oct 06, PART B [id number] [id number] JAMES CE, PATIENT (WNR) (M) B 2013 UP33 2 [place] MEDICARE MEDICARE PART Oct 06, PART A [id number] Lisa HOPKINS (WNR) (M) A 2012 UP33 [phone] RIAN MEDICARE MEDICARE PART Oct 06, PART A [id number] [phone] JAMES CE, PATIENT (WNR) (M) A 2012 UP33 7 RIAN MEDICARE MEDICARE PART Oct 06, PART B [id number] [phone] JAMES CE, PATIENT (WNR) (M) B 2012 UP33 7 RIAN MEDICARE MEDICARE PART Oct 06, PART B [id number] Lisa HOPKINSIENT (WNR) (M) B 2012 UP33 [phone] RIAN MEDICARE MEDICARE PART Dec 06, PART D [id number] Lisa HOPKINS ATIENT PART D (M) D 2018 UP33 [phone] RIAN (WNR) MEDICARE MEDICARE PART Oct 06, PART D [id number] [id number] JAMES CE, PATIENT PART D (M) D 2012 UP33 7 RIAN (WNR) MEDICARE PRESCRIPT PART Oct 06, PART D [id number] LAWRE NCE, PATIENT PART D ION D 2012 32A 0 RIAN (WNR) MEDICARE PRESCRIPT PART Oct 06, PART D [id number] [phone] LAWRE NCE, PATIENT PART D ION D 2012 UP33 0 RIAN (WNR) Selected Encounter This section includes the information on record at [place] for the Encounter. Date/Time Encounter Type Encounter Reason Provider Source Description Jun 16, 2021 OFFICE O/P EST MENTAL HEALTH ICD-10-CM F43.10 ST JONE LEAVITT 02:00 PM MOD 30-39 MIN CLINIC - IND Post-traumatic EN G stress disorder, unspecified with Provider Comments: Posttraumatic stress disorder ([facility] [id number]) IHE Encounter Template Text not used by [facility] Assessments - Encounter Diagnoses This section includes the primary and secondary diagnoses documented for the Encounter. Date/Time Primary/Secondary Diagnosis Name Provider Source Diagnosis Jun 16, 2021 PRIMARY Post-traumatic EDY LEAVITT 05:36 PM stress disorder, N G unspecified Jun 16, 2021 SECONDARY Major depressive EDY LEAVITTE LD 05:36 PM disorder, single N G episode, unspecified Jun 16, 2021 SECONDARY Other chronic pain EDY LEAVITT IELD 05:36 PM N G Jun 16, 2021 SECONDARY Pathological EDY LEAVITT 05:36 PM gambling N G Jun 16, 2021 SECONDARY Restless legs EDY LEAVITT 05:36 PM syndrome N G Jun 16, 2021 SECONDARY Sleep apnea, EDY LEAVITT 05:36 PM unspecified N G Plan of Treatment: Future Appointments (+ 6 months) and Future Tests (+/- 45 days) The Plan of Treatment section includes future care activities for the patient from [facility] [place] [facility] This section includes future appointments and future orders which are active, pending orscheduled.Future Appointments This section includes appointments that were scheduled to occur 6 months from the date of the Encounter, up to a maximum of 20 appointments. The data comes from all [place] treatment [facility]. Appointment Date/Time Appointment Type Appointment Facili ty Name Jun 18, 2021 01:00 PM AMBULATORY MEDICINE [facility] SHANIQUA Curtis [facility] Jun 22, 2021 02:[address] [facility] Jun 23, 2021 01:00 PM [facility] Cosmo FLORES [facility] Jul 07, 2021 11:00 AM AMBULATORY [facility] Jul 13, 2021 02:[address] [facility] Jul 20, 2021 02:[address] [facility] Aug 05, 2021 02:00 PM AMBULATORY [facility] Aug 16, 2021 02:00 PM AMBULATORY [facility] Aug 26, 2021 02:[address] [facility] Sep 03, 2021 11:00 AM [facility] Oct 28, 2021 02:[address] [facility] Dec 02, 2021 01:30 PM AMBULATORY [facility] Dec 07, 2021 01:00 PM AMBULATORY [facility] Dec 09, 2021 01:[address] [facility] Dec 14, 2021 02:00 PM AMBULATORY [facility] Social History: Smoking Status (Most current) and Tobacco Use (All prior to encounter date) This section includes the most current, and the historical, smoking and tobacco-related health factors from the [place] facility where the Encounter took place.Current Smoking Status This section includes the most current smoking, or tobacco-related health factor, from the [place] facility where the Encounter took place. Date/Time Current Smoking Status [facility] September 17, 2020 02:00 PM VA-TOBACCO FORMER USER [facility] Tobacco Use History This section includes a history of the smoking, or tobacco- related health factors, that were collected on or before the date of the Encounter. The data comes from the [place] facility where the Encounter took place. Date/Time Smoking Status/Tobacco Use Comment Erica crawford September 17, 2020 02:00 PM VA-TOBACCO QUIT 15 YRS OR [facility] Jan 10, 2020 02:00 PM VA-TOBACCO FORMER USER [facility] Jan 10, 2020 02:00 PM VA-TOBACCO QUIT 15 YRS OR [facility] MORE Mar 23, 2018 02:31 PM VA-TOBACCO FORMER USER [facility] Mar 23, 2018 02:31 PM VA-TOBACCO QUIT 15 YRS OR [facility] September 19, 2017 01:43 PM QUIT TOBACCO USE > 7 YEARS [facility] September 15, 2016 01:21 PM QUIT TOBACCO USE > 7 YEARS [facility] quit 40 years ago May 12, 2015 10:44 AM QUIT TOBACCO USE > 7 YEARS [facility] Dec 27, 2006 10:00 AM QUIT TOBACCO USE > 7 YEARS [facility] Dec 26, 2005 08:41 AM QUIT TOBACCO USE 1-7 YEARS [facility] Aug 11, 2005 08:42 AM QUIT TOBACCO USE IN PAST [facility] Dec 09, 2004 08:20 AM QUIT TOBACCO USE IN PAST [facility] 2003Apr 02, 2004 08:07 AM QUIT TOBACCO USE IN PAST [facility] Quit several wks ago Jun 02, 2003 01:48 PM CURRENT SMOKER RADHA Reece States ocassional Jan 31, 2002 01:44 PM HISTORY OF SMOKING [place] [facility] stopped tobacco 1 year ago Jan 31, 2002 01:44 PM QUIT TOBACCO USE 1-7 YEARS [facility] Apr 25, 2001 03:26 PM NON-TOBACCO USER MATHEUS JONES Stopped tobacco 3 years ago September 12, 2000 03:24 PM HISTORY OF SMOKING [place] [facility] Quit cigaretts 2 years ago Encounter Notes: All associated encounter notes This section contains the clinical notes associated to the Encounter. Date/Time Encounter Note(s) Provider Source Jun 16, 2021 02:09 PM TELEHEALTH NOTE: PEDRO LEAVITT LOCAL TITLE: [facility] VIDEO CONNECT PSYCHIATRIST NOTE STANDARD TITLE: TELEHEALTH NOTE DATE OF NOTE: JUN 16, 2021@14:09 ENTRY DATE: JUN 16, 2021@14:09:53 AUTHOR: PEDRO LEAVITT EXP COSIGNER: URGENCY: STATUS: COMPLETED [facility] VIDEO CONNECT PSYCHIATRIST NOTE Has ADDE NDA [facility] Video Connect (VVC) Standard Documentation VVC Clinician Resources Only: E911 (Emergency Call Relay Center): [phone] National Veterans Crisis Line - ( [phone]-TALK) press #1. PAMELA Suicide Coordinator [phone], Ext. [phone]; Back-up Ext. [phone] Field Marketing Associate of the Day(AOD), PAMELADanny [phone], Ext. [phone] Introduction: Visit is being conducted by [place] [facility]. [place] identified with 2 identifiers: [ ] Full Name [ ] Date of [ ] VA ID Card Emergency Plan: [place] confirmed and/or pro vided the following information in case of emergency or technology failure. PATIENT PHONE - PHONE NUMBER [CELLULAR] - Is patient phone number correct, if not, enter b elow: 's phone number: RIAN HOPKINS JR [address], [place], [address] 's present location and address for appoi ntment: chart 's emergency contact name and phone numbe r: chart [place] reported that location is private and sa fe: Yes Informed Consent: informed of the risks and benefits of [facility] lehealth video care. has the right to refuse video services. If refuses video visit, a [id number] visit will be scheduled. [place] verbalized consent for this video visit: Yes provided consent for any other persons p resent for visit: N/A If yes, who and relationship to patient: Secure visit: Visit was locked for security and privacy:Yes 30 minutes for encounter, including chart review , interview, charting chart reviewed Pt stable, improved depression and ptsd sx's -- but still has insomnia. Irritability better. Some nightmares, but decrea sed. Affect brightens appropriately. Pt denies SI and violent ideation. Well organize d thoughts. No h/o psychotic sx's. No PI or delusi ons presented. Speech normal/fluent. Cognitive exam grossly intact. Barb[place] s interests. 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 Renal Impairment (SCT 930575827) 2. Depression (SCT 04941801) 3. Co-management 4. Tear of left rotator cuff 5. Posttraumatic stress disorder 6. Type 2 diabetes mellitus in obese 7. Mixed hyperlipidemia 8. Restless legs 9. Insomnia 10. Chronic pain 11. Herniated Disc * 12. Sleep apnea (SNOMED CT 67876269) 13. Gastroesophageal Reflux Disorder 14. Coronary artery disease (SNOMED CT 92265039) 15. Glaucoma 16. Osteoarthritis (SNOMED CT 025509221) 17. Essential hypertension (SNOMED CT 17699612) 18. Hypercholesterolemia (SNOMED CT 79227334) 19. Obesity Active Outpatient Medications (including Supplie [...] [facility] [place] PAST PSYCH MED HX: prozac -- not help ambien -- has not taken for awhile amitriptyline -- has not take for awhile for didier n denies other psych meds hx zoloft -- not help effexor hydroxyzine -- not help sleep trazodone remeron -- did not add benefit melatonin -- did not like the effect IMP: dsm-5 PTSD -- pt reports numerous traumatic incidents in -- noncombat related; also reports police force related incid ents Unspecified depressive do sleep apnea -- cpap -- reports every night chronic pain -- on opiate tx -- since about 2009 restless legs -- on ropinerole gambling -- denies recent problems PLAN: The pt is probably low risk for suicide or viole nce -- the patient denied suicidal and violent ideation, but the [employer] Crisis Line information and number were reviewed w patient as a precaution. The patient also understands to call 911 or to go to ER in the ev ent of an emergency. Continue psychotherapy w Dr Herrmann Note the patient will be getting his alpha stim device which may help with anxiety/PTSD symptoms and indirectly help with s leep. I also offered pt CBT for insomnia -- pt decline d After discussion, we decided to continue cymabal ta 90 mg daily --which has provided at least partial be nefit for depression and perhaps for PTSD symptoms. We decided against increasing the dose , as it i s already relatively high we want to avoid side effects. pt off remeron -- see last note by me dc'd melatonin -- pt did not like the effect consider wellbutrin, trintellix, vortioxetine if insuff reponse to cymbalta. Alternatively consider augmenting Cymb leighton with BuSpar. However for now the patient prefers not to change medication but to continue the Cymbalta, as he has at least a p artial response to it. we again discussed options including prazosin or [...] naloxone rescue nasal spr ay -- renewed again today 06/2021-- pt still has this -- pt will [...] av ailable in clinic if needed I again educated the patient about the importanc e of using cpap for sleep apnea. Pt states always uses cpap Patient denies recent gambling -- [...] /justine/ PEDRO LEAVITT MD STAFF PSYCHIATRIST Signed: 06/16/2021 17:36 Receipt Acknowledged By: * AWAITING SIGNATURE * LALO LIGHT * AWAITING SIGNATURE * EDITH TEJEDA 06/16/2021 ADDENDUM STATUS: COMPLETED Patient requests getting metoprolol succinate ER 200 mg daily through [facility] (currently getting it through non-VA MD) , will forward request to primary care /justine/ PEDRO LEAVITT MD STAFF PSYCHIATRIST Signed: 06/16/2021 17:40 Receipt Acknowledged By: * AWAITING SIGNATURE * PETER CHONG * AWAITING SIGNATURE * MAGNUS SANDERSON
--- OUTSIDE RECORDS SUMMARY | 2022-02-03 00:41 | XMS_ITS | Encounter Summary ---
:1950 Author Organization Department [facility] rs Address [address] [place] [address] Support Name Relationship Address Phone LORI HOPKINS Unavailable [address] [place] [address] [place] [address] LORI HOPKINS Unavailable [address] [place] [address] [phone] [place] [address] Insurance Providers: All historical and current Section [...] Number Silva JARRED PREFERRED STAND May 08 [id number] PROVIDER SHIVA 2010 [id number] RIAN MILLAN FEDERAL ORGANIZAT SELF ION (PPO) BCBS [place] PREFERRED STAND May 08 [id number] [phone] JAMES CE PATIENT FEP PROVIDER SHIVA 2010 87 123 RIAN MILLAN ORGANGERMANAT INDIV ION (PPO) IDUAL BCBS OF PREFERRED STAND May 08 [id number] [phone] JAMES CE PATIENT MASS PROVIDER SHIVA 2010 87 3 RIAN MILLAN FEDERAL ORGANIZAT SELF ION (PPO) BCBS OF PREFERRED STAND May 08 [id number] [phone] JAMES CE PATIENT MASS FEP PROVIDER SHIVA 2010 87 6 RIAN MILLAN ORGANIZAT SELF ION (PPO) BCBS OF DENTAL STAND May 08, DENTAL [id number] [phone] SANDEEP, PATIENT MASS FEP INSURANCE SHIVA 2010 87 6 RIAN DENTAL BCBS OF [place] MEDICARE FEP Dec 06 [id number] 800 SANDEEP PATIENT FEP SECONDARY STAND 2019 87 [phone] RIAN MILLAN (NO B SHIVA EXC) MEDSE Suzan CAREMARK PRESCRIPT FEP Dec 06, [id number] SANDEEP PATIENT FEP ION ONLY 2014 0 87 [phone] RIAN MILLAN CAREMARK PRESCRIPT May 08, [id number] [phone] EDUARDO MATTHEW PATIENT FEP ION 2011 0 87 1 RIAN MILLAN PRESCRIPT CAREM May 08, [id number] [phone] EDUARDO ENCEstella, PATIENT FEP BCBS ION ARK 2011 0 87 1 RIAN FEPRX PLAN CAREMARK PRESCRIPT May 08, [id number] [phone] LAWR ENCE PATIENT FEPRX PLAN ION 2011 0 87 331 RIAN MILLAN-F PRESCRIPT FEPRX May 08, [id number] [phone] LA JENENCE PATIENT EP BCBS ION /PT D 2010 0 87 1 RIAN MILLAN [facility] May 18, [id number] [phone] JAMES CE, PATIENT RE JONATAN AL 2003 32 7 RIAN CE ORGANIZ EXPRESS PRESCRIPT CONNE May 18, [id number] [id number] [phone] JAMES CE, PATIENT SCRIPTS ION CTICA 2003 [id number] RIAN ([id number]) RE MEDICARE MEDICARE PART Oct 06, PART B [id number] JAMES CE, PATIENT (WNR) (M) B 2012 UP33 2 [place] MEDICARE MEDICARE PART Oct 06, PART A [id number] JAMES CE, PATIENT (WNR) (M) A 2013 UP33 00 [place] MEDICARE MEDICARE PART Oct 06, PART B [id number] JAMES CE, PATIENT (WNR) (M) B 2013 UP33 00 [place] MEDICARE MEDICARE PART Oct 06, PART A [id number] 800 Lisa HOPKINS (WNR) (M) A 2013 UP33 [phone] [place] MEDICARE MEDICARE PART Oct 06, PART A [id number] JAMES CE, PATIENT (WNR) (M) A 2013 UP33 7 [place] MEDICARE MEDICARE PART Oct 06, PART B [id number] JAMES CE, PATIENT (WNR) (M) B 2012 UP33 7 RIAN MEDICARE MEDICARE PART Oct 06, PART B [id number] Lisa HOPKINSLIANA (WNR) (M) B 2012 UP33 [phone] RIAN MEDICARE MEDICARE PART Oct 06, PART A [id number] JAMES CE, PATIENT (WNR) (M) A 2012 UP33 2 RIAN MEDICARE MEDICARE PART Dec 06, PART D [id number] 800 Lisa HOPKINS ATIENT PART D (M) D 2018 UP33 [phone] RIAN (WNR) MEDICARE MEDICARE PART Oct 06, PART D [id number] [phone] JAMES CE, PATIENT PART D (M) D 2012 UP33 7 RIAN (WNR) MEDICARE PRESCRIPT PART Oct 06, PART D [id number] LAWRE NCE, PATIENT PART D ION D 2012 32A 0 RIAN (WNR) MEDICARE PRESCRIPT PART Oct 06, PART D [id number] LAWRE NCE, PATIENT PART D ION D 2012 UP33 0 RIAN (WNR) Selected Encounter This section includes the information on record at [place] for the Encounter. Date/Time Encounter Type Encounter Description Reason Provider Source Jun 18, 2021 02:39 Outpatient Encounter OPTOMETRY PM IHE Encounter Template Text not used by [place] Plan of Treatment: Future Appointments (+ 6 months) and Future Tests (+/- 45 days) The Plan of Treatment section includes future care activities for the patient from all [place] treatmentfacilities. This section includes future appointments and future orders which are active, pending orscheduled.Future Appointments This section includes appointments that were scheduled to occur 6 months from the date of the Encounter, up to a maximum of 20 appointments. The data comes from all [place] treatment facilities. Appointment Date/Time Appointment Type Appointment Facili ty Name Jun 22, 2021 02:00 PM AMBULATORY - PSYCHIATRY [facility] Jun 23, 2021 01:00 PM AMBULATORY - [place]ICINE [place] CNTFrancisL W SANDRA PANDEY [facility] Jul 07, 2021 11:00 AM AMBULATORY - MEDICINE [facility] Jul 13, 2021 02:00 PM AMBULATORY - PSYCHIATRY [facility] Jul 20, 2021 02:30 PM AMBULATORY - PSYCHIATRY [facility] Aug 05, 2021 02:00 PM AMBULATORY - PSYCHIATRY [facility] Aug 16, 2021 02:00 PM AMBULATORY - PSYCHIATRY [facility] Aug 26, 2021 02:00 PM AMBULATORY - PSYCHIATRY [facility] Sep 03, 2021 11:00 AM AMBULATORY - REHAB MEDICINE [facility] Oct 28, 2021 02:00 PM AMBULATORY - PSYCHIATRY [facility] Dec 02, 2021 01:30 PM AMBULATORY - PSYCHIATRY [facility] Dec 07, 2021 01:00 PM [facility]anka DANNIE [facility] Dec 09, 2021 01:00 PM AMBULATORY - [facility] Dec 14, 2021 02:00 PM AMBULATORY - MEDICINE [facility] Encounter Notes: All associated encounter notes This section contains the clinical notes associated to the Encounter. Date/Time Encounter Note(s) Provider Source Jun 18, 2021 02:39 PM OPTOMETRY NOTE: VICKY MCCRARY CNTRL W STRN LOCAL TITLE: OPTOMETRY [facility] STANDARD TITLE: OPTOMETRY NOTE DATE OF NOTE: JUN 18, 2021@14:39 ENTRY DATE: JUN 18, 2021@14:40:01 AUTHOR: VICKY MCCRARY EXP COSIGNER: URGENCY: STATUS: COMPLETED prog photo valdivia [place] [id number] RX INFORMATION OD +3.25 -0.75 X80 Add:+2.50 Pzm:0.00 Dir: Prz2: 0.00 Dir2: OS +3.25 -2.75 X106 Add:+2.50 Pzm:0.00 Dir: Prz2 :0.00 Dir2: FITTING INFORMATION FPD: NPD: Finney:R:32.0 L:29.5 SEG HT:R:26 L:26 Tint:None Shade:None [facility] Billable Items FRAME: FX10 [facility] [id number] Right Lens: TRIVEX [facility] PROGRESSIVE PHOTOCHROMATIC VALDIVIA TRIVEX Left Lens: TRIVEX [place] PROGRESSIVE PHOTOCHROMATIC VALDIVIA TRIVEX CHAPISAR ANTI-REFLECTIVE COATING /es/ 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
--- OUTSIDE RECORDS SUMMARY | 2022-02-03 00:42 | XMS_ITS | Encounter Summary ---
:1950 Author Organization [facility] Address [address] [place] [address] Support Name Relationship Address Phone LORI HOPKINS Unavailable [address] [facility] [phone] [place] [address] LORI HOPKNIS Unavailable [address] [facility] [phone] [place] [address] Insurance Providers: All historical and current Section [...] Number Silva JARRED PREFERRED STAND May 08 [id number] PROVIDER SHIVA 2010 [id number] [phone] RIAN MILLAN FEDERAL ORGANIZAT SELF ION (PPO) BCBS [place] PREFERRED STAND May 08 [id number] [phone] JAMES CE PATIENT FEP PROVIDER SHIVA [phone] RIAN MILLAN ORGANGERMANAT INDIV ION (PPO) IDUAL BCBS OF PREFERRED STAND May 08 [id number] [phone] JAMES CE PATIENT MASS PROVIDER SHIVA 2010 87 3 RIAN MILLAN FEDERAL ORGANIZAT SELF ION (PPO) BCBS OF PREFERRED STAND May 08 [id number] [phone] JAMES CE PATIENT MASS FEP PROVIDER SHIVA 2010 87 6 RIAN MILLAN ORGANIZAT SELF ION (PPO) BCBS OF DENTAL STAND May 08, DENTAL [id number] [phone] SANDEEP, PATIENT MASS FEP INSURANCE SHIVA 2010 87 6 RIAN DENTAL BCBS OF [place] MEDICARE FEP Dec 06 [id number] SANDEEP PATIENT FEP SECONDARY STAND 2019 [phone] RIAN MILLAN (NO B SHIVA EXC) MEDSE C CAREMARK PRESCRIPT FEP Dec 06, [id number] SANDEEP PATIENT FEP ION ONLY 2013 0 [phone] RIAN MILLAN PRESCRIPT May 08, [id number] [phone] EDUARDO MATTHEW PATIENT FEP ION 2011 0 87 1 RIAN MILLAN PRESCRIPT CAREM May 08, [id number] [phone] EDUARDO MATTHEW, PATIENT FEP BCBS ION ARK 2011 0 87 1 RIAN FEPRX PLAN CAREMARK PRESCRIPT May 08, [id number] [phone] [phone] ENCsEtella PATIENT FEPRX PLAN ION 2010 0 [id number] RIAN MILLAN-F PRESCRIPT FEPRX May 08, [id number] [phone] LA JENENCE PATIENT EP BCBS ION /PT D 2010 0 87 1 RIAN MILLAN [facility] May 18, [id number] [phone] JAMES CE, PATIENT RE JONATAN AL 2003 32 7 RIAN CE ORGANIZ EXPRESS PRESCRIPT CONNE May 18, [id number] [phone] JAMES CE, PATIENT SCRIPTS ION CTICA 2002 [id number] RIAN ([id number]) RE MEDICARE MEDICARE PART Oct 06, PART A [id number] Lisa HOPKINS (WNR) (M) A 2012 UP33 [phone] RIAN MEDICARE MEDICARE PART Oct 06, PART B [id number] Lisa HOPKINS (WNR) (M) B 2012 UP33 [phone] JOSEPH MEDICARE MEDICARE PART Oct 06, PART A [id number] JAMES CE, PATIENT (WNR) (M) A 2013 UP33 00 JOSEPH MEDICARE MEDICARE PART Oct 06, PART B [id number] JAMES CE, PATIENT (WNR) (M) B 2013 UP33 00 [place]PH MEDICARE MEDICARE PART Oct 06, PART A [id number] JAMES CE, PATIENT (WNR) (M) A 2013 UP33 2 JO[place]PH MEDICARE MEDICARE PART Oct 06, PART A [id number] [phone] JAMES CE, PATIENT (WNR) (M) A 2013 UP33 7 JOSEPH MEDICARE MEDICARE PART Oct 06, PART B [id number] [phone] JAMES CE, PATIENT (WNR) (M) B 2012 UP33 7 RIAN MEDICARE MEDICARE PART Oct 06, PART B [id number] JAMES CE, PATIENT (WNR) (M) B 2012 UP33 2 RIAN MEDICARE MEDICARE PART Dec 06, PART D [id number] SANDEEP P ATIENT PART D (M) D 2018 UP33 [phone] RIAN (WNR) MEDICARE PRESCRIPT PART Oct 06, PART D [id number] LAWRE NCE, PATIENT PART D ION D 2012 [id number] 0 RIAN (WNR) MEDICARE PRESCRIPT PART Oct 06, PART D [id number] LAWRE NCE, PATIENT PART D ION D 2012 UP33 0 RIAN (WNR) MEDICARE MEDICARE PART Oct 06, PART D [id number] JAMES CE, PATIENT PART D (M) D 2012 UP33 7 RIAN (WNR) Selected Encounter This section includes the information on record at SD for the Encounter. Date/Time Encounter Type Encounter Reason Provider Source Description Jun 22, 2021 PSYTX W PT 30 MENTAL HEALTH ICD-10-CM F43.10 AARON MESSINA 02:00 PM MINUTES CLINIC - IND Post-traumatic stress disorder, unspecified with Provider Comments: Posttraumatic stress disorder ([facility] [id number]) IH Encounter Template Text not used by [place] Assessments - Encounter Diagnoses This section includes the primary and secondary diagnoses documented for the Encounter. Date/Time Primary/Secondary Diagnosis Name Provider Source Diagnosis Jun 22, 2021 PRIMARY Post-traumatic AARON MESSINA [facility] 02:41 PM stress disorder, unspecified Plan of Treatment: Future Appointments (+ 6 months) and Future Tests (+/- 45 days) The Plan of Treatment section includes future care activities for the patient from all [place] treatmentfacilities. This section includes future appointments and future orders which are active, pending orscheduled.Future Appointments This section includes appointments that were scheduled to occur 6 months from the date of the Encounter, up to a maximum of 20 appointments. The data comes from all [place] treatment facilities. Appointment Date/Time Appointment Type Appointment Facili ty Name Jun 23, 2021 01:00 PM AMBULATORY - REH[facility]ICINE [place] [facility]DRA [facility]Y [facility] Jul 07, 2021 11:00 AM AMBULATORY - MEDICINE [facility] Jul 13, 2021 02:00 PM AMBULATORY - PSYCHIATRY [facility] Jul 20, 2021 02:30 PM AMBULATORY - PSYCHIATRY [facility] Aug 05, 2021 02:00 PM AMBULATORY - PSYCHIATRY [facility] Aug 16, 2021 02:00 PM AMBULATORY - PSYCHIATRY [facility] Aug 26, 2021 02:00 PM AMBULATORY - PSYCHIATRY [facility] Sep 03, 2021 11:00 AM AMBULATORY - REHAB MEDICINE [facility] Oct 28, 2021 02:00 PM AMBULATORY - PSYCHIATRY [facility] Dec 02, 2021 01:30 PM AMBULATORY - PSYCHIATRY [facility] Dec 07, 2021 01:00 PM [facility] Dec 09, 2021 01:00 PM AMBULATORY - PSYCHIATRY [facility] Dec 14, 2021 02:00 PM AMBULATORY - MEDICINE [facility] Social History: Smoking Status (Most current) and Tobacco Use (All prior to encounter date) This section includes the most current, and the historical, smoking and tobacco-related health factors from the SD facility where the Encounter took place.Current Smoking Status This section includes the most current smoking, or tobacco-related health factor, from the SD facility where the Encounter took place. Date/Time Current Smoking Status Comment Facility September 17, 2020 02:00 PM VA-TOBACCO FORMER USER [facility] Tobacco Use History This section includes a history of the smoking, or tobacco- related health factors, that were collected on or before the date of the Encounter. The data comes from the SD facility where the Encounter took place. Date/Time Smoking Status/Tobacco Use Comment [facility] September 17, 2020 02:00 PM VA-TOBACCO QUIT 15 YRS OR [facility] Jan 10, 2020 02:00 PM VA-TOBACCO FORMER USER [facility] Jan 10, 2020 02:00 PM VA-TOBACCO QUIT 15 YRS OR [facility] Mar 23, 2018 02:31 PM VA-TOBACCO FORMER USER [facility] Mar 23, 2018 02:31 PM VA-TOBACCO QUIT 15 YRS OR [facility] September 19, 2017 01:43 PM QUIT TOBACCO USE > 7 YEARS [facility] AGO September 15, 2016 01:21 PM QUIT TOBACCO USE > 7 YEARS [facility] AGO quit 40 years ago May 12, 2015 10:44 AM QUIT TOBACCO USE > 7 YEARS [facility] Dec 27, 2006 10:00 AM QUIT TOBACCO USE > 7 YEARS [facility] Dec 26, 2005 08:41 AM QUIT TOBACCO USE 1-7 YEARS [facility] Aug 11, 2005 08:42 AM QUIT TOBACCO USE IN PAST Dec 09, 2004 08:20 AM QUIT TOBACCO USE IN PAST 2003Apr 02, 2004 08:07 AM QUIT TOBACCO USE IN PAST Quit several wks ago Jun 02, 2003 01:48 PM CURRENT SMOKER RADHA Reece States ocassionally Jan 31, 2002 01:44 PM HISTORY OF SMOKING [place] IEKAREN stopped tobacco 1 year ago Jan 31, [...] Encounter. Date/Time Encounter Note(s) Provider Source Jun 22, 2021 02:40 PM PSYCHOLOGY NOTE: AARON MESSINA LOCAL TITLE: PSYCHOLOGY NOTE STANDARD TITLE: PSYCHOLOGY NOTE DATE OF NOTE: JUN 22, 2021@14:40 ENTRY DATE: JUN 22, 2021@14:40:56 AUTHOR: AARON MESSINA EXP COSIGNER: URGENCY: STATUS: COMPLETED [facility] ([facility]) Standard Documentation [facility] Clinician Resources Only: E911 (Emergency Call Relay Center): [phone] [facility] Line - ( [phone]) press #1. PAMELA Suicide Coordinator [phone], Ext. [phone]; Back-up Ext. [phone] Chalk Molding Machine Operator of the Day(AOD), Danny SANTIAGO [phone], Ext. [phone] Introduction: Visit is being conducted by [facility]. identified with 2 identifiers: [X] Full Name [ ] Date of [ ] VA ID Card [X] Address Emergency Plan: confirmed and/or provided the following information in case of emergency or technology failure. PATIENT PHONE - PHONE NUMBER [CELLULAR] - Is patient phone number correct, if not, enter b elow: Orrington's phone number: RIAN HOPKINS JR [address], [place], [address] Orrington's present location and address for appoi ntment: [address] [place] [address] 's emergency contact name and phone numbe r: see chart Orrington reported that location is private and sa fe: Yes Informed Consent: Orrington informed of the risks and benefits of Te lehealth video care. Orrington has the right to refuse video services. If refuses video visit, a [id number]-jb-qgkh visit will be scheduled. Orrington verbalized consent for this video visit: Yes Orrington provided consent for any other persons p resent for visit: Yes If yes, who and relationship to patient: Augusto cooper's was in the room at times Secure visit: Visit was locked for security and privacy:Yes VISIT DURATION 30 minutes DIAGNOSES: PTSD (ICD-10-CM F43.10) [facility]ERANS STATEMENT OF GOALS/CONCERNS: indicated that his treatment goals inclu de: 1) anger management SESSION FOCUS: He stated that he has been doing pretty good. Conversation focused on anger management. He indicated that his anger cues inc lude his body getting tense when he is upset. He and undersigned discussed s ome of his triggers associated with anger (e.g., ignorant people ; know-it-all ; people standing too close to him when he is cooking in the kitchen). Discussion explored helpful coping strategies (e.g., deep b reathing; counting to 10 ). He also indicated that he was waiting to get an Alpha-Stim device from Tsering Persaud RN as the devices were on backorder. H e related that the device helped him to feel mellow. Conversation also f ocused on his thoughts and feelings regarding his VA claim process. He leonardo cated that it has been difficult to get in contact with a Vet rep. Sarthak franz, he stated that he plans to call him again today. Discussion focused on a dditional anger/stress management skills, such as taking a timeout/jessee k (e.g., during a disagreement) as well as engaging in relaxing ac tivities (e.g., baking a pie; painting). Support and encouragement were provid ed throughout the appointment. INTERVENTIONS: Psychotherapeutic Interventions: Approaches [...] 6. Sleep was largely unimpaired and restful: Yes 7. No evidence of psychosis (hallucinations or delusions): Yes No evidence of psychosis 8. Mood was normal: Yes; Orrington's mood was euthymic Other Observations: was neatly groomed. He was oriented X3, alert, and cooperative. His short-term memory an d long-term memory appeared intact. He did not demonstrate any abnormal norberto r movements, psychomotor agitation, or psychomotor retardation. Insight a nd judgment were within normal limits. Attention and concentration were within normal limits. RISK ASSESSMENT: He denied any current SI/HI, intent, or plan. He is aware of the availability of the Veterans Crisis Line if needed. He was encouraged to contact undersigned if needed. PLAN FOR FOLLOW-UP: Next session planned for: 07/13 at 2:00pmderek patient is aware that he can contact [facility] at anytime prior to the next appointment. /justine/ AARON MESSINA PSYD Clinical Psychologist Signed: 06/22/2021 14:43
--- OUTSIDE RECORDS SUMMARY | 2022-02-03 00:43 | XMS_ITS | Encounter Summary ---
:1950 Author Organization [facility] Address [address] [place] [address] Support Name Relationship Address Phone LORI HOPKINS Unavailable [address] [facility] [place] [address] LORI HOPKINS Unavailable [address] [facility] [phone] [place] [address] Insurance Providers: All historical and current Section [...] Number Silva JARRED PREFERRED STAND May 08 [id number] PROVIDER SHIVA 2011 [id number] RIAN MILLAN FEDERAL ORGANIZAT SELF ION (PPO) BCBS [place] PREFERRED STAND May 08 [id number] [phone] JAMES CE PATIENT FEP PROVIDER SHIVA [id number] RIAN MILLAN ORGANGERMANAT INDIV ION (PPO) IDUAL BCBS OF PREFERRED STAND May 08 [id number] [phone] JAMES CE PATIENT MASS PROVIDER SHIVA 2010 87 3 RIAN MILLAN FEDERAL ORGANIZAT SELF ION (PPO) BCBS OF PREFERRED STAND May 08 [id number] [phone] JAMES CE PATIENT MASS FEP PROVIDER SHIVA 2010 87 6 RIAN MILLAN ORGANIZAT SELF ION (PPO) BCBS OF DENTAL STAND May 08, DENTAL [id number] [phone] SANDEEP, PATIENT MASS FEP INSURANCE SHIVA 2010 87 6 RIAN DENTAL BCBS OF [place] MEDICARE FEP Dec 06 [id number] SANDEEP PATIENT FEP SECONDARY STAND 2019 87 [phone] RIAN MILLAN (NO B SHIVA EXC) MEDSE C CAREMARK PRESCRIPT FEP Dec 06, [id number] SANDEEP PATIENT FEP ION ONLY 2014 0 87 [phone] RIAN MILLAN CARELIONEL PRESCRIPT May 08, [id number] [phone] EDUARDO MATTHEW PATIENT FEP ION 2011 0 87 1 RIAN MILLAN PRESCRIPT CAREM May 08, [id number] [phone] EDUARDO MATTHEW, PATIENT FEP BCBS ION ARK 2011 0 87 1 RIAN FEPRX PLAN CAREMARK PRESCRIPT May 08, [id number] [phone] LAWR ENCEstella PATIENT FEPRX PLAN ION 2011 0 87 331 RIAN MILLAN-F PRESCRIPT FEPRX May 08, [id number] [phone] LA JENENCE PATIENT EP BCBS ION /PT D 2010 0 87 1 RIAN MILLAN [facility] May 18, [id number] [phone] JAMES CE, PATIENT RE JONATAN AL 2003 32 7 RIAN CE ORGANIZ EXPRESS PRESCRIPT CONNE May 18, [id number] [phone] JAMES CE, PATIENT SCRIPTS ION CTICA 2002 [id number] RIAN ([id number]) RE MEDICARE MEDICARE PART Oct 06, PART A [id number] JAMES CE, PATIENT (WNR) (M) A 2013 UP33 00 JOSEPH MEDICARE MEDICARE PART Oct 06, PART B [id number] [phone] JAMES CE, PATIENT (WNR) (M) B 2013 UP33 00 [place] MEDICARE MEDICARE PART Oct 06, PART A [id number] Lisa HOPKINS (WNR) (M) A 2012 UP33 [phone] JO[place]PH MEDICARE MEDICARE PART Oct 06, PART B [id number] Lisa HOPKINS (WNR) (M) B 2013 UP33 [phone] JO[place]PH MEDICARE MEDICARE PART Oct 06, PART A [id number] JAMES CE, PATIENT (WNR) (M) A 2013 UP33 2 JO[place] MEDICARE MEDICARE PART Oct 06, PART B [id number] [phone] JAMES CE, PATIENT (WNR) (M) B 2013 UP33 2 RIAN MEDICARE MEDICARE PART Oct 06, PART A [id number] [phone] JAMES CE, PATIENT (WNR) (M) A 2012 UP33 7 RIAN MEDICARE MEDICARE PART Oct 06, PART B [id number] [phone] JAMES CE, PATIENT (WNR) (M) B 2012 UP33 7 RIAN MEDICARE MEDICARE PART Dec 06, PART D [id number] Lisa HOPKINS ATIENT PART D (M) D 2018 UP33 [phone] RIAN (WNR) MEDICARE MEDICARE PART Oct 06, PART D [id number] JAMES CE, PATIENT PART D (M) D 2012 UP33 7 RIAN (WNR) MEDICARE PRESCRIPT PART Oct 06, PART D [id number] [phone] LAWRE NCE, PATIENT PART D ION D 2012 32A 0 RIAN (WNR) MEDICARE PRESCRIPT PART Oct 06, PART D [id number] [phone] LAWRE NCE, PATIENT PART D ION D 2012 UP33 0 RIAN (WNR) Selected Encounter This section includes the information on record at [place] for the Encounter. Date/Time Encounter Type Encounter Reason Provider Source Description Jun 23, 2021 SELF-MGMT EDUC REHAB [facility] ICD-10-CM H90.3 ANDNisaMALLY CHING 01:00 PM & TRAIN 1 PT Sensorineural SHANNEN hearing loss, bilateral with Provider Comments: Sensorineural hearing loss, bilateral IHE Encounter Template Text not used by [facility] Assessments - Encounter Diagnoses This section includes the primary and secondary diagnoses documented for the Encounter. Date/Time Primary/Secondary Diagnosis Name Provider Source Diagnosis Jun 23, 2021 PRIMARY Sensorineural ANDNisaFANTA PLANTATION 02:17 PM hearing loss, SHANNEN [facility] bilateral CLINIC Plan of Treatment: Future Appointments (+ 6 [...] Date/Time Appointment Type Appointment Facili ty Name Jul 07, 2021 11:00 AM AMBULATORY - MEDICINE [place] Jul 13, 2021 02:00 PM AMBULATORY - PSYCHIATRY [place] Jul 20, 2021 02:30 PM AMBULATORY PSYCHIATRY [place] Aug 05, 2021 02:00 PM AMBULATORY PSYCHIATRY [place] Aug 16, 2021 02:00 PM AMBULATORY PSYCHIATRY [place] Aug 26, 2021 02:00 PM AMBULATORY PSYCHIATRY [place] Sep 03, 2021 11:00 AM AMBULATORY - REHAB [facility] Oct 28, 2021 02:00 PM AMBULATORY PSYCHIATRY [place] Dec 02, 2021 01:30 PM AMBULATORY - PSYCHIATRY [place] Dec 07, 2021 01:00 PM AMBULATORY - REHAB [facility] SANDRA PANDEY [facility] Dec 09, 2021 01:00 PM AMBULATORY PSYCHIATRY [place] Dec 14, 2021 02:00 PM AMBULATORY MEDICINE [place] Encounter Notes: All associated encounter notes This section contains the clinical notes associated to the Encounter. Date/Time Encounter Note(s) Provider Source Jun 23, 2021 10:45 AM AUDIOLOGY E & M NOTE: FANTA REED [facility] LOCAL TITLE: [facility]Y [facility] STANDARD TITLE: AUDIOLOGY E & M NOTE DATE OF NOTE: JUN 23, 2021@10:45 ENTRY DATE: JUN 23, 2021@10:45:10 AUTHOR: FANTA REED EXP COSIGNER: URGENCY: STATUS: COMPLETED Aural Rehabilitation Subjective: Wann attended the Aural Rehabilit ation workshop today via [facility]. He currently wears binaural VA is sued hearing aids. Wann is a new hearing aid user. There was 1 Vidal yost in today's group. attended today's group session alone. Objective/Assessment: At today's worksho p the following topics were discussed: components of hearing aids, basic hearing aid ma intenance, benefits and limitations of hearing aids, basic anatomy and p hysiology of the hearing system, barriers to good communication and commu nication repair strategies including the use of clear speech. Wann will be mailed out an educational handbook to accompany today's presentation. Wann was provided the opportunity to ask any questions/make comments at today's video appointment. declined any follow up at this time. All questions were answered to the 's satisfa ction. Plan: 1. to contact the clinic PRN. 2. [place] survey mailed to . /justine/ Ck Morales, FAAA Route Service Manager Signed: 06/23/2021 14:17
--- OUTSIDE RECORDS SUMMARY | 2022-02-03 00:43 | XMS_ITS | Encounter Summary ---
:1950 Author Organization Department [facility] Address [address] [place] [address] Support Name Relationship Address Phone LORI HOPKINS Unavailable [address] [place] [address] [phone] [place] [address] LORI HOPKINS Unavailable [address] [place] [address] Insurance Providers: All historical and current Section [...] Number Silva JARRED PREFERRED STAND May 08 [id number] PROVIDER SHIVA 2011 [id number] RIAN MILLAN FEDERAL ORGANIZAT SELF ION (PPO) BCBS [place] PREFERRED STAND May 08 [id number] [phone] JAMES CE PATIENT FEP PROVIDER SHIVA 2010 87 123 RIAN MILLAN ORGANGERMANAT INDIV ION (PPO) IDUAL BCBS OF PREFERRED STAND May 08 [id number] [phone] JAMES CE PATIENT MASS PROVIDER SHIVA 2010 87 3 RIAN MILLAN FEDERAL ORGANIZAT SELF ION (PPO) BCBS OF PREFERRED STAND May 08 [id number] [phone] JAMES CE PATIENT MASS FEP PROVIDER SHIVA 2010 87 6 RIAN MILLAN ORGANIZAT SELF ION (PPO) BCBS OF DENTAL STAND May 08, DENTAL [id number] [phone] SANDEEP, PATIENT MASS FEP INSURANCE SHIVA 2010 87 6 RIAN DENTAL [place]BS OF [place] MEDICARE FEP Dec 06 [id number] 800 SANDEEP PATIENT FEP SECONDARY STAND 2019 [phone] RIAN MILLAN (NO B SHIVA EXC) MEDSE C CAREMARK PRESCRIPT FEP Dec 06, [id number] SANDEEP PATIENT FEP ION ONLY 2014 0 87 [phone] RIAN MILLAN CARELIONEL PRESCRIPT May 08, [id number] [phone] EDUARDO MATTHEW PATIENT FEP ION 2011 0 87 1 RIAN MILLAN PRESCRIPT CAREM May 08, [id number] [phone] EDUARDO ENCEstella, PATIENT FEP BCBS ION ARK 2011 0 87 1 RIAN FEPRX PLAN CAREMARK PRESCRIPT May 08, [id number] [phone] LAWR ENCE PATIENT FEPRX PLAN ION 2011 0 87 331 RIAN MILLAN-F PRESCRIPT FEPRX May 08, [id number] [phone] LA WRENCE PATIENT EP BCBS ION /PT D 2010 0 87 1 RIAN MILLAN [facility] May 18, [id number] [phone] JAMES CE, [facility] 32 7 RIAN CE ORGANIZ EXPRESS PRESCRIPT CONNE May 18, [id number] [phone] JAMES CE, PATIENT SCRIPTS ION CTICA 2003 [id number] 7 RIAN ([id number]) RE MEDICARE MEDICARE PART Oct 06, PART B [id number] JAMES CE, PATIENT (WNR) (M) B 2012 UP33 2 [place] MEDICARE MEDICARE PART Oct 06, PART A [id number] Lisa HOPKINS (WNR) (M) A 2013 UP33 [id number] [place] MEDICARE MEDICARE PART Oct 06, PART A [id number] [phone] JAMES CE, PATIENT (WNR) (M) A 2013 UP33 00 [place] MEDICARE MEDICARE PART Oct 06, PART B [id number] JAMES CE, PATIENT (WNR) (M) B 2013 UP33 00 [place] MEDICARE MEDICARE PART Oct 06, PART A [id number] JAMES CE, PATIENT (WNR) (M) A 2013 UP33 7 [place] MEDICARE MEDICARE PART Oct 06, PART B [id number] JAMES CE, PATIENT (WNR) (M) B 2012 UP33 7 RIAN MEDICARE MEDICARE PART Oct 06, PART B [id number] 800 Lisa HOPKINSIENT (WNR) (M) B 2012 UP33 [id number] RIAN MEDICARE MEDICARE PART Oct 06, PART A [id number] JAMES CE, PATIENT (WNR) (M) A 2012 UP33 2 RIAN MEDICARE MEDICARE PART Dec 06, PART D [id number] 800 Lisa HOPKINS ATIENT PART D (M) D 2018 UP33 [phone] RIAN (WNR) MEDICARE MEDICARE PART Oct 06, PART D [id number] [phone] JAMES CE, PATIENT PART D (M) D 2012 UP33 7 RIAN (WNR) MEDICARE PRESCRIPT PART Oct 06, PART D [id number] LAWRE NCE, PATIENT PART D ION D 2012 32A 0 RIAN (WNR) MEDICARE PRESCRIPT PART Oct 06, PART D [id number] LAWRE NCE, PATIENT PART D ION D 2012 UP33 0 RIAN (WNR) Selected Encounter This section includes the information on record at [place] for the Encounter. Date/Time Encounter Type Encounter Description Reason Provider Source Jun 29, 2021 11:06 Outpatient Encounter PRIMARY CARE/MEDICINE AM [facility] Encounter [...] 07, 2021 11:00 AM AMBULATORY - MEDICINE [place] Jul 13, 2021 02:00 PM AMBULATORY - PSYCHIATRY [place] Jul 20, 2021 02:30 PM AMBULATORY - PS[place]CHIATRY [place] Aug 05, 2021 02:00 PM AMBULATORY - PS[place]CHIATRY [place] Aug 16, 2021 02:00 PM AMBULATORY - PS[place]CHIATRY [place] Aug 26, 2021 02:00 PM AMBULATORY - PS[place]CHIATRY [place] Sep 03, 2021 11:00 AM AMBULATORY - REHAB MEDICINE [facility] Oct 28, 2021 02:00 PM AMBULATORY - PS[place]CHIATRY [place] Dec 02, 2021 01:30 PM AMBULATORY - PS[place]CHIATRY [place] Dec 07, 2021 01:00 PM AMBULATORY - REHAB MEDICINE [facility] Dec 09, 2021 01:00 PM AMBULATORY - PSYCHIATRY [place] Dec 14, 2021 02:00 PM AMBULATORY - MEDICINE [place] Encounter Notes: All associated encounter notes This section contains the clinical notes associated to the Encounter. Date/Time Encounter Note(s) Provider Source Jun 29, 2021 11:06 AM PRIMARY CARE SECURE MESSAGING: JOVAN HOOVER [facility] LOCAL TITLE: PRIMARY CARE SECURE MESSAGING [facility] STANDARD TITLE: PRIMARY CARE SECURE MESSAGING DATE OF NOTE: JUN 29, 2021@11:06:43 ENTRY DATE: JUN 29, 2021@11:06:43 AUTHOR: JOVAN HOOVER EXP COSIGNER: URGENCY: STATUS: COMPLETED PRIMARY CARE SECURE MESSAGING Has ADDENDA * ------Original Message Sent: 06/29/2021 10:37 AM From: RIAN HOPKINS To: Nisa CHONG_PRIMARY CARE_SPOPC Subject: Migraine Headache I use to us IC [id number] ye ars ago . And stopped but the Migraine Headaches are back with a bang so can you prescribe me this script for them. Thanks Juan Carlos Jeffrey2 /justine/ JOVAN VANEGAS Signed: 06/29/2021 11:06 Receipt Acknowledged By: 06/29/2021 11:46 /es/ Magnus Sanderson RN Registered Nurse * AWAITING SIGNATURE * CORDELL MCWILLIAMS 06/29/2021 ADDENDUM STATUS: COMPLETED Forward to PCP for review. /justine/ Magnus Sanderson RN Registered Nurse Signed: 06/29/2021 11:47 Receipt Acknowledged By: 06/29/2021 13:21 /es/ JAMES SESAY RN,MS N,DISTRICT MANAGER IN TRAINING-C PRIMARY CARE NURSE PRACTITIONER for ROMULO CHONG 06/29/2021 ADDENDUM STATUS: COMPLETED Fiorocet is a NF med. Please schedule tele visit w PCP to review migra kelle and treatment. /justine/ JAMES SESAY RN,MSN,DISTRICT MANAGER IN TRAINING-C PRIMARY CARE NURSE PRACTITIONER Signed: 06/29/2021 13:23 Receipt Acknowledged By: * AWAITING SIGNATURE * JOVAN HOOVER * AWAITING SIGNATURE * MAGNUS SANDERSON
--- OUTSIDE RECORDS SUMMARY | 2022-02-03 00:44 | XMS_ITS | Encounter Summary ---
:1950 Author Organization [facility] Address [address] [place] [address] Support Name Relationship Address Phone LORI HOPKINS Unavailable [address] [facility] [phone] [place] [address] LORI HOPKINS Unavailable [address] [place] [address] Insurance Providers: All historical and current Section [...] Number Silva JARRED PREFERRED STAND May 08 [id number] PROVIDER SHIVA 2010 [id number] [phone] RIAN MILLAN FEDERAL ORGANIZAT SELF ION (PPO) BCBS PR PREFERRED STAND May 08 [id number] [phone] JAMES CE PATIENT FEP PROVIDER SHIVA 2010 87 123 RIAN MILLAN ORGANGERMANAT INDIV ION (PPO) IDUAL BCBS OF PREFERRED STAND May 08 [id number] [phone] JAMES CE PATIENT MASS PROVIDER SHIVA 2010 87 3 RIAN MILLAN FEDERAL ORGANIZAT SELF ION (PPO) BCBS OF PREFERRED STAND May 08 [id number] [phone] JAMES CE PATIENT MASS FEP PROVIDER SHIVA 2010 87 6 RIAN MILLAN ORGANIZAT SELF ION (PPO) BCBS OF DENTAL STAND May 08, DENTAL [id number] [phone] SANDEEP, PATIENT MASS FEP INSURANCE SHIVA 2010 87 6 RIAN DENTAL [place] OF [place] MEDICARE FEP Dec 06 [id number] SANDEEP PATIENT FEP SECONDARY STAND 2019 [phone] RIAN MILLAN (NO B SHIVA EXC) MEDSE C CAREMARK PRESCRIPT FEP Dec 06, [id number] 800 SANDEEP PATIENT FEP ION ONLY 2013 0 87 [phone] RIAN MILLAN PRESCRIPT May 08, [id number] [phone] EDUARDO MATTHEW PATIENT FEP ION 2011 0 87 1 RIAN MILLAN PRESCRIPT CAREM May 08, [id number] [phone] EDUARDO MATTHEW, PATIENT FEP BCBS ION ARK 2011 0 87 1 RIAN FEPRX PLAN CAREMARK PRESCRIPT May 08, [id number] [phone] LAWR ENCEstella PATIENT FEPRX PLAN ION 2011 0 87 331 RIAN MILLAN-F PRESCRIPT FEPRX May 08, [id number] [phone] LA KVNG PATIENT EP BCBS ION /PT D 2010 0 87 1 RIAN MILLAN [facility] May 18, [id number] [phone] JAMES CE, PATIENT RE [place] 2003 32 7 RIAN CE ORGANIZ EXPRESS PRESCRIPT CONNE May 18, [id number] [phone] JAMES CE, PATIENT SCRIPTS ION CTICA 2003 [id number] 7 RIAN ([id number]) RE MEDICARE MEDICARE PART Oct 06, PART A [id number] JAMES CE, PATIENT (WNR) (M) A 2012 UP33 2 [place] MEDICARE MEDICARE PART Oct 06, PART B [id number] [id number] JAMES CE, PATIENT (WNR) (M) B 2012 UP33 2 [place] MEDICARE MEDICARE PART Oct 06, PART A [id number] [phone] JAMES CE, PATIENT (WNR) (M) A 2013 UP33 00 [place] MEDICARE MEDICARE PART Oct 06, PART B [id number] [id number] JAMES CE, PATIENT (WNR) (M) B 2012 UP33 00 [place] MEDICARE MEDICARE PART Oct 06, PART A [id number] 800 Lisa HOPKINS (WNR) (M) A 2012 UP33 [phone] [place] MEDICARE MEDICARE PART Oct 06, PART A [id number] [id number] JAMES CE, PATIENT (WNR) (M) A 2012 UP33 7 [place] MEDICARE MEDICARE PART Oct 06, PART B [id number] [phone] JAMES CE, PATIENT (WNR) (M) B 2012 UP33 7 RIAN MEDICARE MEDICARE PART Oct 06, PART B [id number] 800 Lisa HOPKINS ATIENT (WNR) (M) B 2012 UP33 [phone] RIAN MEDICARE MEDICARE PART Dec 06, PART D [id number] 800 SANDEEP, P ATIENT PART D (M) D 2018 UP33 [phone] RIAN (WNR) MEDICARE MEDICARE PART Oct 06, PART D [id number] [id number] JAMES CE, PATIENT PART D (M) D 2012 UP33 7 RIAN (WNR) MEDICARE PRESCRIPT PART Oct 06, PART D [id number] LAWRE NCE, PATIENT PART D ION D 2012 32A 0 RIAN (WNR) MEDICARE PRESCRIPT PART Oct 06, PART D [id number] [id number] LAWRE NCE, PATIENT PART D ION D 2012 UP33 0 RIAN (WNR) Selected Encounter This section includes the information on record at [place] for the Encounter. Date/Time Encounter Type Encounter Reason Provider Source Description Jul 13, 2021 PSYTX W PT 45 MENTAL HEALTH ICD-10-CM F43.10 AARON MESSINA 02:00 PM [facility] - IND Post-traumatic stress disorder, unspecified with Provider Comments: Posttraumatic stress disorder ([facility] [id number]) [facility] Encounter Template Text not used by [place] Assessments - Encounter Diagnoses This section includes the primary and secondary diagnoses documented for the Encounter. Date/Time Primary/Secondary Diagnosis Name Provider Source Diagnosis Jul 13, 2021 PRIMARY Post-traumatic AARON MESSINA [place] 02:51 PM stress disorder, unspecified Plan of Treatment: [...] Appointment Type Appointment Facili ty Name Jul 20, 2021 02:30 PM AMBULATORY - PSYCHIATRY [place] Aug 05, 2021 02:00 PM AMBULATORY - PSYCHIATRY [place] Aug 16, 2021 02:00 PM AMBULATORY - PSYCHIATRY [place] Aug 26, 2021 02:00 PM AMBULATORY - PSYCHIATRY [place] Sep 03, 2021 11:00 AM AMBULATORY - REHAB MEDICINE [facility] Oct 28, 2021 02:00 PM AMBULATORY - PSYCHIATRY [place] Dec 02, 2021 01:30 PM AMBULATORY - PSYCHIATRY [place] Dec 07, 2021 01:00 PM AM[place] [facility] Dec 09, 2021 01:00 PM AMBULATORY - PSYCHIATRY [place] Dec 14, 2021 02:00 PM AMBULATORY - MEDICINE [place] Jan 13, 2022 02:00 PM AMBULATORY - MEDICINE [place] Social History: Smoking Status (Most current) and Tobacco Use (All prior to encounter date) This section includes the most current, and the historical, smoking and tobacco-related health factors from the [place] facility where the Encounter took place.Current Smoking Status This section includes the most current smoking, or tobacco-related health factor, from the [place] facility where the Encounter took place. Date/Time Current Smoking Status Comment Facility September 17, 2020 02:00 PM VA-TOBACCO FORMER USER [facility] Tobacco Use History This section includes a history of the smoking, or tobacco- related health factors, that were collected on or before the date of the Encounter. The data comes from the [place] facility where the Encounter took place. Date/Time Smoking Status/Tobacco Use Comment [facility] September 17, 2020 02:00 PM VA-TOBACCO QUIT 15 YRS OR [facility] Jan 10, 2020 02:00 PM VA-TOBACCO FORMER USER [facility] Jan 10, 2020 02:00 PM VA-TOBACCO QUIT 15 YRS OR [facility] Mar 23, 2018 02:31 PM VA-TOBACCO FORMER USER [facility] Mar 23, 2018 02:31 PM VA-TOBACCO QUIT 15 YRS OR [facility] September 19, 2017 01:43 PM QUIT TOBACCO USE > 7 YEARS [facility] September 15, 2016 01:21 PM QUIT TOBACCO USE > 7 YEARS [place] quit 40 years ago May 12, 2015 10:44 AM QUIT TOBACCO USE > 7 YEARS [place] Dec 27, 2006 10:00 AM QUIT TOBACCO USE > 7 YEARS [facility] Dec 26, 2005 08:41 AM QUIT TOBACCO USE 1-7 YEARS [place] Aug 11, 2005 08:42 AM QUIT TOBACCO USE IN PAST S Dec 09, 2004 08:20 AM QUIT TOBACCO [...] the Encounter. Date/Time Encounter Note(s) Provider Source Jul 13, 2021 02:50 PM PSYCHOLOGY NOTE: AARON MESSINA LOCAL TITLE: PSYCHOLOGY NOTE STANDARD TITLE: PSYCHOLOGY NOTE DATE OF NOTE: JUL 13, 2021@14:50 ENTRY DATE: JUL 13, 2021@14:50:44 AUTHOR: AARON MESSINA EXP COSIGNER: URGENCY: STATUS: COMPLETED PSYCHOLOGY NOTE Has ADDENDA [place] [employer] Connect (VVC) Standard Documentation [facility] Clinician Resources Only: E911 (Emergency Call Relay Center): [phone] [facility] - ( 1-348-374-ZPDC) press #1. PAMELA Suicide Coordinator [phone], Ext. [phone]; Back-up Ext. [phone] [employer] Ticket Cashier of the Day(AOD), Danny SANTIAGO [phone], Ext. [phone] Introduction: Visit is being conducted by [employer]. [place] identified with 2 identifiers: [X] Full Name [ ] Date of [ ] VA ID Card [X] Address Emergency Plan: Sol[place]ons confirmed and/or provided the following information in case of emergency or technology failure. PATIENT PHONE - PHONE NUMBER [CELLULAR] - Is patient phone number correct, if not, enter b elow: Solomons's phone number: RIAN HOPKINS JR [address], [place], [address] Solomons's present location and address for appoi ntment: [address] [place] [address] Solomons's emergency contact name and phone numbe r: see chart reported that location is private and sa fe: Yes Informed Consent: informed of the risks and benefits of [facility] video care. Solomons has the right to refuse video services. If refuses video visit, a [id number] visit will be scheduled. Solomons verbalized consent for this video visit: Yes provided consent for any other persons p resent for visit: Yes If yes, who and relationship to patient: Augusto cooper's was in the room with him at times. He invited her to attend the appointment at one point. Secure visit: Visit was locked for security and privacy:Yes VISIT DURATION 40 minutes; Undersigned called Solomons towards the end of the appointment as her audio on the VV call stopped working (asim nobles was still working on the VVC call). DIAGNOSES: PTSD (ICD-10-CM F43.10) [facility] STATEMENT OF GOALS/CONCERNS: Solomons indicated that his treatment goals inclu de: 1) anger management SESSION FOCUS: Conversation focused on anger management (e.g., recognizing triggers; positive coping tools to improve his anger such as taking a timeout/break, engaging in pleasant activities, breathing exerc ises, etc.). stated that he continues to cook and take care of his c hickens. He reported that he and his were interested in going on a cruis e to the [place] in August/September. He and undersigned also discussed hel pful communication strategies (e.g., verbal/nonverbal cues). Undersigned discu ssed the potential benefits of the PTSD group. He was open to Bita Hauser contacting him to provide additional information regarding the virtual PTS D group on Mondays. He stated that he plans to continue completing p aperwork for his claim as well as contact Baldo Marlow. Support and encourag ement were provided throughout the appointment. INTERVENTIONS: Psychotherapeutic [...] was largely unimpaired and restful: No; He stated that he experiences sleep difficu lties 7. No evidence of psychosis (hallucinations or delusions): Yes No evidence of psychosis 8. Mood was normal: Yes; Solomons's mood was euthymic Other Observations: Solomons was neatly groomed. He was oriented X3, [...] is aware of the availability of the [employer] Crisis Line if needed. He was encouraged to contact [facility] if needed. PLAN FOR FOLLOW-UP: Next session planned for: 08/05 at 2:00pm, [facility] er patient is aware that he can contact [facility] at anytime prior to the next appointment. He stated that he plans to contact his PCP cesar malik his medication. /justine/ AARON MESSINA PSYD Clinical Psychologist Signed: 07/13/2021 14:54 07/13/2021 ADDENDUM STATUS: COMPLETED was open to Bita Hauser contacting ri tamela to provide information regarding the virtual PTSD yonny paige on Mondays. He stated that he was uncertain if he was interest ed in attending the group but was open to receiving information about the group. /virgilio MESSINA PSYD Clinical Psychologist Signed: 07/13/2021 14:55 Receipt Acknowledged By: * AWAITING SIGNATURE * BITA HAUSER
--- OUTSIDE RECORDS SUMMARY | 2022-02-03 00:44 | XMS_ITS | Encounter Summary ---
:1950 Author Organization [facility] Address [address] [place] [address] Support Name Relationship Address Phone LORI HOPKINS Unavailable [address] [place] [address] LORI HOPKINS Unavailable [address] [facility] [phone] [place] [address] Insurance Providers: All historical and current Section [...] Number Silva ANTHEM PREFERRED STAND May 08 [id number] [phone] PROVIDER SHIVA 2010 [id number] RIAN MILLAN FEDERAL ORGANIZAT SELF ION (PPO) BCBS [place] PREFERRED STAND May 08 [id number] [phone] JAMES CE PATIENT FEP PROVIDER SHIVA 2010 87 123 RIAN MILLAN ORGANBERTHA INDIV ION (PPO) IDUAL BCBS OF PREFERRED STAND May 08 [id number] [phone] JAMES CE PATIENT MASS PROVIDER SHIVA 2010 87 3 RIAN MILLAN FEDERAL ORGANIZAT SELF ION (PPO) BCBS OF PREFERRED STAND May 08 [id number] [phone] JAMES CE PATIENT MASS FEP PROVIDER SHIVA 2010 87 6 RIAN MILLAN ORGANGERMANAT SELF ION (PPO) BCBS OF DENTAL STAND May 08, DENTAL [id number] [phone] SANDEEP, PATIENT MASS FEP INSURANCE SHIVA 2010 87 6 RIAN DENTAL [place] OF [place] MEDICARE FEP Dec 06 [id number] SANDEEP PATIENT FEP SECONDARY STAND 2019 [phone] RIAN MILLAN (NO B SHIVA EXC) MEDSE C CAREMARK PRESCRIPT FEP Dec 06, [id number] SANDEEP PATIENT FEP ION ONLY 2013 0 87 [phone] RIAN MILLAN CAR[place]ARK PRESCRIPT May 08, [id number] [phone] EDUARDO MATTHEW PATIENT FEP ION 2010 0 87 1 RIAN MILLAN PRESCRIPT CAREM May 08, [id number] [phone] EDUARDO MATTHEW, PATIENT FEP BCBS ION ARK 2011 0 87 1 RIAN FEPRX PLAN CAREMARK PRESCRIPT May 08, [id number] [phone] LAWR ENCE PATIENT FEPRX PLAN ION 2010 0 87 331 RIAN MILLAN-F PRESCRIPT FEPRX May 08, [id number] [phone] [place] KVNG PATIENT EP BCBS ION /PT D 2010 0 87 1 RIAN MILLAN [facility] May 18, [id number] [phone] JAMES CE, [facility] 32 7 RIAN CE ORGANIZ EXPRESS PRESCRIPT CONNE May 18, [id number] [id number] [phone] JAMES CE, PATIENT SCRIPTS ION CTICA 2003 [id number] 7 RIAN ([id number]) RE MEDICARE MEDICARE PART Oct 06, PART B [id number] JAMES CE, PATIENT (WNR) (M) B 2012 UP33 2 [place] MEDICARE MEDICARE PART Oct 06, PART A [id number] 800 Lisa HOPKINS (WNR) (M) A 2012 UP33 [phone] RIAN MEDICARE MEDICARE PART Oct 06, PART A [id number] JAMES CE, PATIENT (WNR) (M) A 2012 UP33 7 [place] MEDICARE MEDICARE PART Oct 06, PART B [id number] JAMES CE, PATIENT (WNR) (M) B 2012 UP33 7 [place] MEDICARE MEDICARE PART Oct 06, PART A [id number] [phone] JAMES CE, PATIENT (WNR) (M) A 2013 UP33 00 [place] MEDICARE MEDICARE PART Oct 06, PART B [id number] 800 Lisa HOPKINS (WNR) (M) B 2012 UP33 [id number] [place] MEDICARE MEDICARE PART Oct 06, PART B [id number] [phone] JAMES CE, PATIENT (WNR) (M) B 2012 UP33 00 RIAN MEDICARE MEDICARE PART Oct 06, PART A [id number] [id number] JAMES CE, PATIENT (WNR) (M) A 2012 UP33 2 RIAN MEDICARE MEDICARE PART Dec 06, PART D [id number] 800 SANDEEP P ATIENT PART D (M) D 2018 UP33 [id number] RIAN (WNR) MEDICARE MEDICARE PART Oct 06, PART D [id number] JAMES CE, PATIENT PART D (M) D 2012 UP33 7 RIAN (WNR) MEDICARE PRESCRIPT PART Oct 06, PART D [id number] LAWRE NCE, PATIENT PART D ION D 2012 UP33 0 RIAN (WNR) MEDICARE PRESCRIPT PART Oct 06, PART D [id number] LAWRE NCE, PATIENT PART D ION D 2012 32A 0 RIAN (WNR) Selected Encounter This section includes the information on record at [place] for the Encounter. Date/Time Encounter Type Encounter Description Reason Provider Source E Encounter Template Text not used by [place]
--- OUTSIDE RECORDS SUMMARY | 2022-02-03 00:44 | XMS_ITS | Encounter Summary ---
:1950 Author Organization [facility] [address] Address [address] [place] [id number] Support Name Relationship Address Phone LORI HOPKINS Unavailable [address] [facility] [phone] [place] [address] LORI HOPKINS Unavailable [address] [facility] [phone] [place] [address] Insurance Providers: All historical and current Section Date Range: From patient's date of to the date document was created.This section includes the names of all active insurance providers for the patient. Insurance Type of Plan Start of End of Group Member Insurance Policy P atient's Provider Coverage Name Policy Policy Number ID Provider's Silva's Relationship Coverage Coverage Telephone Name to Policy Number Silva RICKYZARA PREFERRED STAND May 08 [id number] PROVIDER SHIVA 2010 [id number] RIAN MILLAN FEDERAL ORGANIZAT SELF ION (PPO) BCBS PR PREFERRED STAND May 08 [id number] [phone] JAMES CE PATIENT FEP PROVIDER SHIVA [phone] RIAN MILLAN ORGANGERMANAT INDIV ION (PPO) IDUAL BCBS OF PREFERRED STAND May 08 [id number] [phone] JAMES CE PATIENT MASS PROVIDER SHIVA [phone] 3 RIAN MILLAN FEDERAL ORGANIZAT SELF ION (PPO) BCBS OF PREFERRED STAND May 08 [id number] [phone] JAMES CE PATIENT MASS FEP PROVIDER SHIVA 2010 87 6 RIAN MILLAN ORGANIZAT SELF ION (PPO) BCBS OF DENTAL STAND May 08, DENTAL [id number] [phone] SANDEEP, PATIENT MASS FEP INSURANCE SHIVA 2010 87 6 RIAN DENTAL [place]BS OF [place] MEDICARE FEP Dec 06 [id number] SANDEEP PATIENT FEP SECONDARY STAND 2019 [phone] RIAN MILLAN (NO B SHIVA EXC) MEDSE C JUSTIN PRESCRIPT FEP Dec 06, [id number] SANDEEP PATIENT FEP ION ONLY 2013 [phone] RIAN MILLAN CARELIONEL PRESCRIPT May 08, [id number] [phone] EDUARDO MATTHEW PATIENT FEP ION 2011 0 87 1 RIAN MILLAN PRESCRIPT CAREM May 08, [id number] [phone] EDUARDO MATTHEW, PATIENT FEP BCBS ION ARK 2011 0 87 1 RIAN FEPRX PLAN CAREMARK PRESCRIPT May 08, [id number] [phone] EDUARDO ENCEstella PATIENT FEPRX PLAN ION 2010 0 [phone] RIAN MILLAN-F PRESCRIPT FEPRX May 08, [id number] [phone] LA KVNG PATIENT EP BCBS ION /PT D 2010 0 87 1 RIAN MILLAN [facility] May 18, [id number] [phone] JAMES CE, PATIENT RE JONATAN AL 2003 32 7 RIAN CE ORGANIZ EXPRESS PRESCRIPT CONNE May 18, [id number] [phone] JAMES CE, PATIENT SCRIPTS ION CTICA 2003 [id number] RIAN ([id number]) RE MEDICARE MEDICARE PART Oct 06, PART B [id number] JAMES CE, PATIENT (WNR) (M) B 2012 UP33 2 [place] MEDICARE MEDICARE PART Oct 06, PART A [id number] JAMES CE, PATIENT (WNR) (M) A 2013 UP33 00 [place] MEDICARE MEDICARE PART Oct 06, PART B [id number] [phone] JAMES CE, PATIENT (WNR) (M) B 2012 UP33 00 [place] MEDICARE MEDICARE PART Oct 06, PART A [id number] Lisa HOPKINS (WNR) (M) A 2013 UP33 [id number] [place] MEDICARE MEDICARE PART Oct 06, PART B [id number] JAMES CE, PATIENT (WNR) (M) B 2012 UP33 7 [place] MEDICARE MEDICARE PART Oct 06, PART A [id number] JAMES CE, PATIENT (WNR) (M) A 2012 UP33 7 [place] MEDICARE MEDICARE PART Oct 06, PART B [id number] Lisa HOPKINSLIANA (WNR) (M) B 2012 UP33 [phone] RIAN MEDICARE MEDICARE PART Oct 06, PART A [id number] JAMES CE, PATIENT (WNR) (M) A 2012 UP33 2 RIAN MEDICARE MEDICARE PART Dec 06, PART D [id number] Lisa HOPKINS ATIENT PART D (M) D 2018 UP33 [phone] RIAN (WNR) MEDICARE MEDICARE PART Oct 06, PART D [id number] JAMES CE, PATIENT PART D (M) D 2012 UP33 7 RIAN (WNR) MEDICARE PRESCRIPT PART Oct 06, PART D [id number] LAWRE NCE, PATIENT PART D ION D 2012 UP33 0 RIAN (WNR) MEDICARE PRESCRIPT PART Oct 06, PART D [id number] LAWRE NCE, PATIENT PART D ION D 2012 [id number] 0 RIAN (WNR) Selected Encounter This section includes the information on record at [place] for the Encounter. Date/Time Encounter Type Encounter Reason Provider Source Description Jul 07, 2021 Outpatient TELEPHONE PRIMARY ICD-10-CM R51.9 YUDITH-NEHAL RAFI 11:00 AM Encounter CARE Headache, OVICROMULO unspecified with M Provider Comments: Headache, unspecified IHE Encounter Template Text not used by VA Assessments - Encounter Diagnoses This section includes the primary and secondary diagnoses documented for the Encounter. Date/Time Primary/Secondary Diagnosis Name Provider Source Diagnosis Jul 07, 2021 PRIMARY Headache, NADAZDIN-BOSKO VINOD 11:00 AM unspecified ROMULO RUSSELL Jul 07, 2021 SECONDARY Athscl heart BIBIAZDIN-BOSKO VINOD 11:00 AM disease of [place] ROMULO RUSSELL coronary artery w/o ang pctrs Jul 07, 2021 SECONDARY Body mass index NADAZDIN-BOSKO [place] 11:00 AM [BMI] 38.0-38.9, ROMULO RUSSELL adult Jul 07, 2021 SECONDARY Chronic kidney NADAZDIN-BOSKO VINOD 11:00 AM disease, stage 3 ROMULO RUSSELL unspecified Jul 07, 2021 SECONDARY Hyperlipidemia, NADAZDIN-BOSKO [place] 11:00 AM unspecified ROMULO RUSSELL Jul 07, 2021 SECONDARY Hypertensive YUDITH-IBETH [place] 11:00 AM chronic kidney ROMULO RUSSELL disease w stg 1-4/unsp chr kdny Jul 07, 2021 SECONDARY [facility] (current) NADDOMITILA-IBETH [place] 11:00 AM use of opiate ROMULO RUSSELL analgesic Jul 07, 2021 SECONDARY Obstructive sleep YUDITH-IBETH [place] 11:00 AM apnea (adult) ROMULO RUSSELL (pediatric) Jul 07, 2021 SECONDARY Other chronic pain [place] 11:00 AM ROMULO RUSSELL Jul 07, 2021 SECONDARY Other low back pain YUDITH-IBETH [place] 11:00 AM ROMULO RUSSELL Jul 07, 2021 SECONDARY Other obesity due BIBIDOMITILA-IBETH [place] 11:00 AM to excess calories ROMULO RUSSELL Jul 07, 2021 SECONDARY Pain in left knee YUDITH-IBETH [place] 11:00 AM ROMULO RUSSELL Jul 07, 2021 SECONDARY Pain in right knee YUDITH-IBETH [place] 11:00 AM ROMULO RUSSELL Jul 07, 2021 SECONDARY Sensorineural YUDITH-IBETH [place] 11:00 AM hearing loss, ROMULO RUSSELL bilateral Jul 07, 2021 SECONDARY Type 2 diabetes YUDITH-IBETH PICKAR[place] D 11:00 AM mellitus without ROMULO RUSSELL complications Jul 07, 2021 SECONDARY Vitamin D [facility] 11:00 AM deficiency, ROMULO RUSSELL unspecified Plan of Treatment: Future Appointments (+ [...] Appointment Type Appointment Facili ty Name Jul 13, 2021 02:00 PM AMBULATORY - [facility]CHIATRY [place] Jul 20, 2021 02:30 PM [facility] [place] Aug 05, 2021 02:00 PM [facility] [place] Aug 16, 2021 02:00 PM [facility] [place] Aug 26, 2021 02:00 PM AM[facility]ORY [facility]IATRY [place] Sep 03, 2021 11:00 AM AM[facility] - [facility] MED[facility] Oct 28, 2021 02:00 PM AM[facility]ORY [facility] [place] Dec 02, 2021 01:30 PM AM[facility]ORY [facility] [place] Dec 07, 2021 01:00 PM [facility] Dec 09, 2021 01:00 PM AMBULATORY - [facility]CHIATRY [place] Dec 14, 2021 02:00 PM AMBULATORY - MEDICINE [place] Social History: Smoking Status (Most current) and [...] 17, 2020 02:00 PM VA-TOBACCO FORMER USER [facility] Tobacco Use History This [...] 10, 2020 02:00 PM VA-TOBACCO FORMER USER [facility] Jan 10, 2020 02:00 PM VA-TOBACCO QUIT 15 YRS OR [facility] Mar 23, 2018 02:31 PM VA-TOBACCO FORMER USER [facility] Mar 23, 2018 02:31 PM VA-TOBACCO QUIT 15 YRS OR [facility] September 19, 2017 01:43 PM QUIT TOBACCO USE > 7 YEARS [facility] September 15, 2016 01:21 PM QUIT TOBACCO USE > 7 YEARS [facility] quit 40 years ago May 12, 2015 10:44 AM QUIT TOBACCO USE > 7 YEARS [facility] Dec 27, 2006 10:00 AM QUIT TOBACCO USE > 7 YEARS [facility] Dec 26, 2005 08:41 AM QUIT TOBACCO USE 1-7 YEARS [facility] Aug 11, 2005 08:42 AM QUIT TOBACCO [...] 2000 03:24 PM HISTORY OF SMOKING [place] Quit cigaretts 2 years ago Encounter Notes: All associated encounter notes This section contains the clinical notes associated to the Encounter. Date/Time Encounter Note(s) Provider Source Jul 22, 2021 12:47 PM ADMINISTRATIVE NOTE: MAGNUS MANDUJANO TITLE: ADMINISTRATIVE NOTE STANDARD TITLE: ADMINISTRATIVE NOTE DATE OF NOTE: JUL 22, 2021@12:47 ENTRY DATE: JUL 22, 2021@12:47:57 AUTHOR: MAGNUS MANDUJANO EXP COSIGNER: URGENCY: STATUS: COMPLETED Received fax from: [facility] [address] [place] [phone] fax [phone] Requesting insurance authorization for [facility] with Jesse Moreland on 07/21/2021. Community care - pain management consult for continuing care entered, held for provider review per policy. /justine/ Magnus Mandujano RN Registered Nurse Signed: 07/22/2021 12:51 Receipt Acknowledged By: * AWAITING SIGNATURE * PETER CHONG Jul 07, 2021 11:59 AM PHYSICIAN TELEPHONE ENCOUNTER NOTE: TARAS ALLEN TITLE: TELEPHONE NOTE/MD LYUBOV Acevedo STANDARD TITLE: PHYSICIAN TELEPHONE ENCOUNTER NO TE DATE OF NOTE: JUL 07, 2021@11:59 ENTRY DATE: JUL 07, 2021@11:59:29 AUTHOR: Nisa CHONG EXP COSIGNER: URGENCY: STATUS: COMPLETED Pt is 71 y/o M with PMH of obesity BMI 38, HTN, HL, CAD s/p PCI 2005 DESx1 circumflex, CKD3, IDDM2, TRENTON on CPAP, GERD, RLS, OA, chronic pain, PTSD, insomnia Last visit 04/[address] [place] [address] Cordell Fischer in [place] - 1m Other providers: -- [facility] -- [facility] -- audiology [facility] -- Dr. Jhaveri, Endocrine -q3m - last 05/2021 -- Dr Hillman eye -- ortho dafne Russo - shoulder /knee -- non [place] renal Jerod -- non [place] cardiology dr Sena last 05/06/2021 CC: headache #headaches Usually starting back of the neck and spreading to the top of his head and frontally deneis sinus congestion 2x /week usually in the afternoon lasting 45 minutes or longer no visual changes no weakness, numbness Reports some phonophobia/photophobia minimal nausea, no vomiting resting in the dark did not help much tried extra strength aspirin w/o success ice pack/heating pad did not help last eye exam 2 months ago started vit D supplementation in april #HTN managed by renal, cardio, non VA PCP not fully compliant with low salt diet Reports that blood pressure is usually well cont rolled since metoprolol increased to 200 mg daily BP today 135/70 #DM2 per pt last a1c 8.8 (05/2021) Insulin-dependent On basal bolus regimen Denies hypoglycemia Follow-up with non-[facility] endocrinology # b/l knee pain - s/p medial meniscectomy 04/2020 Dr Rafaela France ke still with stiffness, pain, intermittent swellin g, he was referred by ortho to pain management Dr Volodymyr bryson for knee injections received knee injection 3x a nd completed PT w/o improvement in sx. he ambulates with a walker Reevaluated by Ortho ortho in -> plan to have right knee replacement once A1c < 7 #persistent LBP had several back surgeries in the past and is on narcotics rx by non VA PCP #CAD/HTN/HL compliant with medications denies CP/SOB/RENDON/palpitations/dizziness /claudi cation #obesity BMI 38 , current weight 248 lb due to knee/LBP mainly sedentary regular diet PAST MEDICAL HISTORY: -- obesity -- HL -- HTN -- DM2 complications of neuropathy -- CAD - CAD s/p PCI 2005 DESx1 circumflex NMPI 2018 with fixed defect in circumflex territ ory with EF 44 improved to 60% with stress -- CKD3 -- TRENTON -sleep study 03/2021 --severe TRENTON HST-TARA of 55.3/hr -- GERD -- RLS -- Chronic pain opioid pain agreement signed 06/08 4 uds ok DPH check ok 08/15/13 -- Herniated Disc -- OA -- Tear of left rotator cuff [facility] Ortho -- Glaucoma -- Insomnia -- PTSD PAST SURGICAL HISTORY: -- shoulder Left (2x) -- L meniscal tear -- s/p medial meniscectomy 04/2020 Dr Rafaela barfield -- L elbow for tennis elbow -- back surgery 3x -- L eye several surgeries ALLERGIES:sulfur -rash, naproxen - BRE, Brimonid ine, TImolol, Bimatoprost MEDICATIONS: Non-VA ASPIRIN 81MG ATORVASTATIN CALCIUM 80MG Non-VA FENOFIBRATE TAB 54MG BY MOUTH DAILY METOPROLOL SUCC ER 200mg Non-VA AMLODIPINE 5MG Non-VA LOSARTAN 100MG Non-VA FUROSEMIDE 40MG BID takes prn - seldomly non va trulicity 3mg weekly (01/2021) Humulin N - 25 units am 38 units pm Novolog - 10-12 units am 25-28 units pm OMEPRAZOLE 40MG BEFORE BREAKFAST Non-VA ROPINIROLE HCL 3MG HS DULOXETINE HCL 90MG ONCE DAILY FOR MOOD BACLOFEN 10MG TAB ONCE DAILY MUSCLE RIGIDITY prn --Non-VA OXYCODONE HCL 10MG/APAP 325MG TAB 1 [...] HISTORY: --Cancer: mother ?, father -throat cancer --PR: mother PR in 60s --CVA: SOCIAL HISTORY: --Occupation:retired --Cohabitation:, [...] pain/bloody/miranda k stools :no dysuria/hematuria/trouble voiding MSK: Knee/back pain + Neuro: no dizziness/h/a + Skin: no pruritus/rash ambulate with a walker [...] 300.0 CREATININE URINE: 173.58 ASSESSMENT/PLAN: Pt is 71 y/o M with PMH of obesity BMI 38, HTN, HL, CAD s/p PCI 2006 DESx1 circumflex, CKD3, IDDM2, TRENTON, GERD, RLS, OA, chr onic pain, PTSD, insomnia #headache - per HPI ?tension/migraine h/a -trial of excedrine migraine daily prn (instruct to limit use to max 2-3x/week) -reviewed stress management , discussed improtance of adequate sleep, hydration, CPAP use -consider referral to accupuncture -ROM neck exercise, massage -pt instructed to call us in case of symptoms wo rsening or failing to improve #Obesity BMI 38 - -declined MOVE # DM2 - uncontrolled -c/w basal/bolus/trulicity -reviewed diet/portion size with pt -f/w non VA endo q3m #HTN -well-controlled, goal <130/80 -c/w self monitoring -c/w METOPROLOL SUCC ER 200mg -c/w Non-VA AMLODIPINE 5MG -c/w Non-VA LOSARTAN 100MG -c/w Non-VA FUROSEMIDE 40MG BID takes prn - seld omly -f/w non VA renal, cardio #HL: LDL 95 on high intensity statin #CAD stable CAD without recurrent angina s/p PCI 2006 DESx1 circumflex NMPI 2018 with fixed defect in circumflex territ ory with EF 44 improved to 60%with stress -c/w ASA/statin, BB, ARB , lasix #CKD3 -improve HTN/DM control -avoid NSAIDs -f/w non VA renal #vit D def: -c/w D3 25mcg daily #TRENTON #03/2021 severe TRENTON HST-TARA of 55.3/hr time < 90% was 53.6 minutes, 13.7% of total -encoraged regular CPAP use -monitoring with non VA provider #hearing loss -f/w audiology #Knee pain: s/p medial meniscectomy 04/2020 Dr Estella Beckham -Seen by orthopedics in April 2021 plan to gagnon ve right knee replacement Once diabetes under control Healthcare maintenance: --Lipids: LDL 95 (04/2021) --Diabetes: A1c 9.2 (04/2021) --Colon CA (50-75): per pt 3-4 years ago- after diverticulitis-> no polyps-repeat in 10 y managed by private PCP -->will obtain records --Lung CA: n/a --PSA PSA 0.74 (2017)- per pt f/w non VA PCP --AAA (smoker/65): 2018 no AAA --Influenza (yrly): will get at [facility] --COVID aug 2020 -> scheduled for booster --PCV13 2015 --PCV23: --HZV/RZV: -2019 x2 --TDAP/TD: --Hep C screen: 2000 negative --HIV screen: --DEXA: --Advanced Directives: phone 30 m Comanagement - prefers to have most aspects of h ealth maintenance, chronic condition(s) and medication management to non-VA PCP. Return to clinic to see me per recall ( x)fasting labs ordered prior to f/u add vit D, b12, TSH, alb/cr ()request records from outside providers HTN Assess for Elevated BP>=140/90: Patient reported blood pressure 135/70 Medication Reconciliation: Outpatient: Has the patient been taking medications as docu mented in the EMLR? No: Discrepencies were identified. See below. Essential Medication List for Review used to co mplete this medication reconciliation. INCLUDED IN THIS LIST: Alphabetical list of act ashley outpatient prescriptions dispensed from this VA (local) an d dispensed from another VA or [facility] facility (remote) as well as inpatien [...] with a VA or non-VA provider. /justine/ ROMULO CHONG MD PHYSICIAN Signed: 07/07/2021 19:04 Jul 07, 2021 10:41 AM PREVENTIVE MEDICINE NURSING NOTE: Cosmo CISNEROS LOCAL TITLE: CLINICAL REMINDERS/NURSING JHONATHAN CALLE STANDARD TITLE: PREVENTIVE MEDICINE NURSING NOTE DATE OF NOTE: JUL 07, 2021@10:41 ENTRY DATE: JUL 07, 2021@10:41:51 AUTHOR: KWAME CISNEROS EXP COSIGNER: URGENCY: STATUS: COMPLETED The states that he see's podiatr y outside of the [facility]. He states that he does have numbness and tingling, this is normal for him. Relationship Health & Safety Screen: Environment is safe to proceed INFORMED CONSENT TO SCREEN & DOCUMENT: Individual consents to documentation? Yes Individual consents to proceed with screening? Yes PRIMARY SCREEN: In the past 12 months, how often did a current or former intimate partner (e.g., boyfriend, girlfriend, , , se xual partner): Scream or curse at you: Never Insult or talk down to you: Never Threaten you with harm: Never Physically hurt you: Never In the past 12 months, how often did a current or former intimate partner force or pressure you to have sexual co ntact against your will, or when you were unable to say no? Never PRIMARY SCREEN RESULTS: The individual denied all forms of IPV above (i .e., answered never to all 5 items above). ??The HITS tool is US copyright protected by Brain Carr MD, and the user has full rights to use it throughout the [employer] system. DISPOSITION: Provided general IPV education. Influenza Immunization: Virtual/Telehealth Visit - Patient educated on the need for receiving influenza immunization either at VA or outside facility. The Med Rec will be completed by the PCP. COVID-19 Immunization: Virtual/Telehealth Visit - Patient educated on the need for receiving COVID-19 (SARS-CoV-2) immunization either at [facility] or outside facility. /justine/ KWAME CISNEROS LPN LICENSED PRACTICAL NURSE Signed: 07/07/2021 10:48
--- OUTSIDE RECORDS SUMMARY | 2022-02-03 00:45 | XMS_ITS | Encounter Summary ---
:1950 Author Organization [facility] Address [address] [place] [id number] Support Name Relationship Address Phone LORI HOPKINS Unavailable [address] [place] [address] [phone] [address] [place] [address] LORI HOPKINS Unavailable [address] [place] [address] Insurance Providers: All historical and current Section [...] Number Silva JARRED PREFERRED STAND May 08 [id number] PROVIDER SHIVA 2011 [id number] RIAN MILLAN FEDERAL ORGANIZAT SELF ION (PPO) BCBS OR PREFERRED STAND May 08 [id number] [phone] JAMES CE PATIENT FEP PROVIDER SHIVA 2010 [id number] RIAN MILLAN ORGANGERMANAT INDIV ION (PPO) IDUAL BCBS OF PREFERRED STAND May 08 [id number] [phone] JAMES CE PATIENT MASS PROVIDER SHIVA 2010 87 3 RIAN MILLAN FEDERAL ORGANIZAT SELF ION (PPO) BCBS OF PREFERRED STAND May 08 [id number] [phone] JAMES CE PATIENT MASS FEP PROVIDER SHIVA 2010 87 6 RIAN MILLAN ORGANIZAT SELF ION (PPO) BCBS OF DENTAL STAND May 08, DENTAL [id number] [phone] SANDEEP, PATIENT MASS FEP INSURANCE SHIVA 2010 87 6 RIAN DENTAL [place] OF [place] MEDICARE FEP Dec 06 [id number] SANDEEP PATIENT FEP SECONDARY STAND 2019 [id number] [phone] RIAN MILLAN (NO B SHIVA EXC) MEDSE Suzan CAREMARK PRESCRIPT FEP Dec 06, [id number] SANDEEP PATIENT FEP ION ONLY 2014 0 [phone] RIAN MILLAN [place] PRESCRIPT May 08, [id number] [phone] EDUARDO ENCEstella PATIENT FEP ION 2011 0 87 1 RIAN MILLAN PRESCRIPT CAREM May 08, [id number] [phone] EDUARDO ENCEstella, PATIENT FEP BCBS ION ARK 2011 0 87 1 RIAN FEPRX PLAN CAREMARK PRESCRIPT May 08, [id number] [phone] ENCE PATIENT FEPRX PLAN ION 2011 0 [id number] RIAN MILLAN-F PRESCRIPT FEPRX May 08, [id number] [phone] LA WRENCE PATIENT EP BCBS ION /PT D 2010 0 87 1 RIAN MILLAN [facility] May 18, [id number] [phone] JAMES CE, [facility] 32 7 RIAN CE ORGANIZ EXPRESS PRESCRIPT CONNE May 18, [id number] [phone] JAMES CE, PATIENT SCRIPTS ION CTICA 2003 [id number] 7 RIAN ([id number]) RE MEDICARE MEDICARE PART Oct 06, PART A [id number] [id number] JAMES CE, PATIENT (WNR) (M) A 2012 UP33 00 [place] MEDICARE MEDICARE PART Oct 06, PART B [id number] [phone] JAMES CE, PATIENT (WNR) (M) B 2012 UP33 00 [place] MEDICARE MEDICARE PART Oct 06, PART A [id number] [phone] JAMES CE, PATIENT (WNR) (M) A 2012 UP33 2 [place] MEDICARE MEDICARE PART Oct 06, PART B [id number] [phone] JAMES CE, PATIENT (WNR) (M) B 2012 UP33 2 [place] MEDICARE MEDICARE PART Oct 06, PART A [id number] Lisa HOPKINS (WNFrancis) (M) A 2012 UP33 [phone] [place] MEDICARE MEDICARE PART Oct 06, PART B [id number] Lisa HOPKINS (WNR) (M) B 2012 UP33 [phone] RIAN MEDICARE MEDICARE PART Oct 06, PART A [id number] [phone] JAMES CE, PATIENT (WNR) (M) A 2012 UP33 7 RIAN MEDICARE MEDICARE PART Oct 06, PART B [id number] [phone] JAMES CE, PATIENT (WNR) (M) B 2012 UP33 7 RIAN MEDICARE MEDICARE PART Dec 06, PART D [id number] Lisa HOPKINS ATIENT PART D (M) D 2018 UP33 [phone] RIAN (WNR) MEDICARE MEDICARE PART Oct 06, PART D [id number] [phone] JAMES CE, PATIENT PART D (M) D 2012 UP33 7 RIAN (WNR) MEDICARE PRESCRIPT PART Oct 06, PART D [id number] [id number] LAWRE NCE, PATIENT PART D ION D 2012 32A 0 RIAN (WNR) MEDICARE PRESCRIPT PART Oct 06, PART D [id number] [phone] LAWRE NCE, PATIENT PART D ION D 2012 UP33 0 RIAN (WNR) Selected Encounter This section includes the information on record at [place] for the Encounter. Date/Time Encounter Type Encounter Reason Provider Source Description Jul 14, 2021 01:43 Outpatient PRIMARY KIN,MARIBETH PM Encounter CARE/MEDICINE E [...] 20, 2021 02:30 PM AMBULATORY [place] Aug 05, 2021 02:00 PM AMBULATORY [place] Aug 16, 2021 02:00 PM AMBULATORY - [place]AT[place] Aug 26, 2021 02:00 PM AMBULATORY - [place]IATRY [place] Sep 03, 2021 11:00 AM AMBULATORY - [facility] Oct 28, 2021 02:00 PM AMBULATORY - [place]IATRY [place] Dec 02, 2021 01:30 PM AMBULATORY - [place]IATRY [place] Dec 07, 2021 01:00 PM [facility] [place] [facility] Dec 09, 2021 01:00 PM AMBULATORY - [facility]CHIATRY [place] Dec 14, 2021 02:00 PM AMBULATORY - MEDICINE [place] Jan 13, 2022 02:00 PM AMBULATORY - MEDICINE [place] Encounter Notes: All associated encounter notes This section contains the clinical notes associated to the Encounter. Date/Time Encounter Note(s) Provider Source Jul 14, 2021 01:43 PM PRIMARY CARE SECURE MESSAGING: MAGNUS SANDERSON [facility] LOCAL TITLE: PRIMARY CARE SECURE MESSAGING [facility] STANDARD TITLE: PRIMARY CARE SECURE MESSAGING DATE OF NOTE: JUL 14, 2021@13:43 ENTRY DATE: JUL 14, 2021@13:43:49 AUTHOR: MAGNUS SANDERSON COSIGNER: URGENCY: STATUS: COMPLETED ------Original Message Sent: 07/14/2021 01:35 PM ET From: RIAN HOPKINS To: Nisa CHONG_PRIMARY CARE_SPOPC Subject: General:Message Just wanted to know if you got my message yester day .About my meds. ------Original Message Sent: 07/14/2021 01:43 PM ET From: MAGNUS SANDERSON To: RIAN HOPKINS Subject: General:Message Dear Mr. Hopkins, We did receive your message. Dr. Mathew will review i t when she is done with patients today. Thank you, Nurse Magnus Banuelos BSN, RN [facility] PACT 5 Registered Nurse /justine/ Magnus Sanderson RN Registered Nurse Signed: 07/14/2021 13:43 Receipt Acknowledged By: * AWAITING SIGNATURE * PETER CHONG
--- OUTSIDE RECORDS SUMMARY | 2022-02-03 00:45 | XMS_ITS | Encounter Summary ---
:1950 Author Organization Department [facility] rs Address [address] [place] [address] Support Name Relationship Address Phone LORI HOPKINS Unavailable [address] [place] [address] [place] [address] LORI HOPKINS Unavailable [address] [facility] [place] [address] Insurance Providers: All historical and current Section [...] Number Silva JARRED PREFERRED STAND May 08 [id number] [phone] PROVIDER SHIVA [phone] RIAN MILLAN FEDERAL ORGANIZAT SELF ION (PPO) BCBS [place] PREFERRED STAND May 08 [id number] [phone] JAMES CE PATIENT FEP PROVIDER SHIVA [phone] RIAN MILLAN ORGANGERMANAT INDIV ION (PPO) IDUAL BCBS OF PREFERRED STAND May 08 [id number] [phone] JAMES CE PATIENT MASS PROVIDER SHIVA 2010 87 3 RIAN MILLAN FEDERAL ORGANIZAT SELF ION (PPO) BCBS OF PREFERRED STAND May 08 [id number] [phone] JAMES CE PATIENT MASS FEP PROVIDER SHIVA 2010 87 6 RIAN MILLAN ORGANIZAT SELF ION (PPO) BCBS OF DENTAL STAND May 08, DENTAL [id number] [phone] SANDEEP, PATIENT MASS FEP INSURANCE SHIVA 2010 87 6 RIAN DENTAL BCBS OF [place] MEDICARE FEP Dec 06 [id number] [phone] SANDEEP PATIENT FEP SECONDARY STAND 2019 [phone] RIAN MILLAN (NO B SHIVA EXC) MEDSE C CAREMARK PRESCRIPT FEP Dec 06, [id number] SANDEEP PATIENT FEP ION ONLY 2014 [phone] RIAN MILLAN [place] PRESCRIPT May 08, [id number] [phone] EDUARDO ENCEstella PATIENT FEP ION 2011 0 87 1 RIAN MILLAN PRESCRIPT CAREM May 08, [id number] [phone] EDUARDO ENCEstella, PATIENT FEP BCBS ION ARK 2011 0 87 1 RIAN FEPRX PLAN CAREMARK PRESCRIPT May 08, [id number] [phone] [phone] ENCE PATIENT FEPRX PLAN ION 2011 0 [phone] RIAN MILLAN-F PRESCRIPT FEPRX May 08, [id number] [phone] LA WRENCE PATIENT EP BCBS ION /PT D 2010 0 87 1 RIAN MILLAN [facility] May 18, [id number] [phone] JAMES CE, [facility] 32 7 RIAN CE ORGANIZ EXPRESS PRESCRIPT CONNE May 18, [id number] [phone] JAMES CE, PATIENT SCRIPTS ION CTICA 2003 [id number] RIAN ([id number]) RE MEDICARE MEDICARE PART Oct 06, PART A [id number] JAMES CE, PATIENT (WNR) (M) A 2012 UP33 2 [place] MEDICARE MEDICARE PART Oct 06, PART B [id number] JAMES CE, PATIENT (WNR) (M) B 2012 UP33 2 [place] MEDICARE MEDICARE PART Oct 06, PART A [id number] JAMES CE, PATIENT (WNR) (M) A 2013 UP33 00 [place] MEDICARE MEDICARE PART Oct 06, PART B [id number] JAMES CE, PATIENT (WNR) (M) B 2012 UP33 00 [place] MEDICARE MEDICARE PART Oct 06, PART A [id number] Lisa HOPKINS (WNR) (M) A 2012 UP69 [id number] [place] MEDICARE MEDICARE PART Oct 06, PART A [id number] JAMES CE, PATIENT (WNR) (M) A 2012 UP33 7 RIAN MEDICARE MEDICARE PART Oct 06, PART B [id number] [phone] JAMES CE, PATIENT (WNR) (M) B 2012 UP33 7 RIAN MEDICARE MEDICARE PART Oct 06, PART B [id number] [phone] Lisa HOPKINS ATIENT (WNR) (M) B 2012 UP33 [phone] RIAN MEDICARE MEDICARE PART Dec 06, PART D [id number] Lisa HOPKINS ATIENT PART D (M) D 2018 UP33 [phone] RIAN (WNR) MEDICARE MEDICARE PART Oct 06, PART D [id number] [phone] JAMES CE, PATIENT PART D (M) D 2012 UP33 7 RIAN (WNR) MEDICARE PRESCRIPT PART Oct 06, PART D [id number] LAWRE NCE, PATIENT PART D ION D 2012 [id number] 0 RIAN (WNR) MEDICARE PRESCRIPT PART Oct 06, PART D [id number] LAWRE NCE, PATIENT PART D ION D 2012 UP33 0 RIAN (WNR) Selected Encounter This section includes the information on record at [place] for the Encounter. Date/Time Encounter Type Encounter Reason Provider Source Description Jul 14, 2021 08:46 Outpatient PRIMARY MARIBETH SANDERSON AM Encounter CARE/MEDICINE E DAVINA SCHMIDT Encounter Template Text not used by [place] [...] 20, 2021 02:30 PM AMBULATORY - [facility]CHIATRY [place] Aug 05, 2021 02:00 PM AMBULATORY - [facility]CHIATRY [place] Aug 16, 2021 02:00 PM AMBULATORY - [facility]CHIATRY [place] Aug 26, 2021 02:00 PM AMBULATORY - [facility]CHIATRY [place] Sep 03, 2021 11:00 AM AMBULATORY - REHAB MEDICINE [facility] Oct 28, 2021 02:00 PM AMBULATORY - [facility]CHIATRY [place] Dec 02, 2021 01:30 PM AMBULATORY - [facility]CHIATRY [place] Dec 07, 2021 01:00 PM AMBULATORY [place] [facility] Dec 09, 2021 01:00 PM AMBULATORY - PSYCHIATRY [place] Dec 14, 2021 02:00 PM AMBULATORY - MEDICINE [place] Jan 13, 2022 02:00 PM AMBULATORY - MEDICINE [place] Encounter Notes: All associated encounter notes This section contains the clinical notes associated to the Encounter. Date/Time Encounter Note(s) Provider Source Jul 14, 2021 08:46 AM PRIMARY CARE SECURE MESSAGING: MAGNUS SANDERSON [place] [facility] LOCAL TITLE: PRIMARY CARE SECURE MESSAGING [facility] STANDARD TITLE: PRIMARY CARE SECURE MESSAGING DATE OF NOTE: JUL 14, 2021@08:46 ENTRY DATE: JUL 14, 2021@08:46:52 AUTHOR: MAGNUS SANDERSON EXP COSIGNER: URGENCY: STATUS: COMPLETED ------Original Message Sent: 07/13/2021 04:29 PM ET From: RIAN HOPKINS To: Nisa CHONG_PRIMARY CARE_[facility] Subject: Medication:Headache and my Novolog Insu joseph ASPART , HUMAN Headache Meds have aspirin in it I get a stomach ack when I use aspirin can you chain it if you don't mine . My Addy log Insulin ASPART , HUMAN 100 UNITS / ML IN # [id number] is not on my list to be reordered can you check this out please . Thanks Juan Carlos [phone] This is what it has fo r a # INSULIN,ASPART,HUMAN 100 UNIT/ML INJ RX#[id number] /justine/ aMgnus Sanderson RN Registered Nurse Signed: 07/14/2021 08:46 Receipt Acknowledged By: * AWAITING SIGNATURE * PETER CHONG
--- OUTSIDE RECORDS SUMMARY | 2022-02-03 00:45 | XMS_ITS | Encounter Summary ---
:1950 Author Organization [facility] Address [address] [place] [address] Support Name Relationship Address Phone LORI HOPKINS Unavailable [address] [facility] [place] [address] LORI HOPKINS Unavailable [address] [facility] [place] [address] Insurance Providers: All historical and current Section [...] Number Silva JARRED PREFERRED STAND May 08 [id number] [phone] PROVIDER SHIVA [phone] RIAN MILLAN FEDERAL ORGANIZAT SELF ION (PPO) BCBS ME PREFERRED STAND May 08 [id number] [phone] JAMES CE PATIENT FEP PROVIDER SHIVA 2010 87 123 RIAN MILLAN ORGANGERMANAT INDIV ION (PPO) IDUAL BCBS OF PREFERRED STAND May 08 [id number] [phone] JAMES CE PATIENT MASS PROVIDER SHIVA 2010 87 3 RIAN MILLAN FEDERAL ORGANIZAT SELF ION (PPO) BCBS OF PREFERRED STAND May 08 [id number] [phone] JAMES CE PATIENT MASS FEP PROVIDER SHIVA 2010 87 6 RIAN MILLAN ORGANIZAT SELF ION (PPO) BCBS OF DENTAL STAND May 08, DENTAL [id number] [phone] SANDEEP, PATIENT MASS FEP INSURANCE SHIVA 2010 87 6 RIAN DENTAL [place] MED[place] FEP Dec 06 [id number] 800 SANDEEP PATIENT FEP SECONDARY STAND 2019 [phone] RIAN MILLAN (NO B SHIVA EXC) MEDSE C CAREMARK PRESCRIPT FEP Dec 06, [id number] SANDEEP PATIENT FEP ION ONLY 2013 0 87 [phone] RIAN MILLAN PRESCRIPT May 08, [id number] [phone] EDUARDO MATTHEW PATIENT FEP ION 2011 0 87 1 RINA MILLAN PRESCRIPT CAREM May 08, [id number] [phone] EDUARDO MATTHEW, PATIENT FEP BCBS ION ARK 2011 0 87 1 RIAN FEPRX PLAN CAREMARK PRESCRIPT May 08, [id number] [phone] LAWR ENCEstella PATIENT FEPRX PLAN ION 2010 0 [phone] RIAN MILLAN-F PRESCRIPT FEPRX May 08, [id number] [phone] LA KVNG PATIENT EP BCBS ION /PT D 2010 0 87 1 RIAN MILLAN [facility] May 18, [id number] [phone] JAMES CE, PATIENT RE JONATAN AL 2003 32 7 RIAN CE ORGANIZ EXPRESS PRESCRIPT CONNE May 18, [id number] [phone] JAMES CE, PATIENT SCRIPTS ION CTICA 2002 [id number] 7 RIAN ([id number]) RE MEDICARE MEDICARE PART Oct 06, PART B [id number] JAMES CE, PATIENT (WNR) (M) B 2012 UP33 2 [place] MEDICARE MEDICARE PART Oct 06, PART A [id number] [phone] JAMES CE, PATIENT (WNR) (M) A 2013 UP33 00 [place] MEDICARE MEDICARE PART Oct 06, PART B [id number] [phone] JAMES CE, PATIENT (WNR) (M) B 2013 UP33 00 [place] MEDICARE MEDICARE PART Oct 06, PART A [id number] 800 Lisa HOPKINS (WNR) (M) A 2012 UP33 [id number] [place] MEDICARE MEDICARE PART Oct 06, PART A [id number] [phone] JAMES CE, PATIENT (WNR) (M) A 2013 UP33 7 [place] MEDICARE MEDICARE PART Oct 06, PART B [id number] [id number] JAMES CE, PATIENT (WNR) (M) B 2012 UP33 7 [place] MEDICARE MEDICARE PART Oct 06, PART B [id number] 800 Lisa HOPKINS ATIENT (WNR) (M) B 2012 UP33 [phone] RIAN MEDICARE MEDICARE PART Oct 06, PART A [id number] [id number] JAMES CE, PATIENT (WNR) (M) A 2012 UP33 2 RIAN MEDICARE MEDICARE PART Dec 06, PART D [id number] SANDEEPLisa ATIENT PART D (M) D 2018 UP33 [phone] RIAN (WNR) MEDICARE MEDICARE PART Oct 06, PART D [id number] JAMSE CE, PATIENT PART D (M) D 2012 UP33 7 RIAN (WNR) MEDICARE PRESCRIPT PART Oct 06, PART D [id number] LAWRE NCE, PATIENT PART D ION D 2012 32A 0 RIAN (WNR) MEDICARE PRESCRIPT PART Oct 06, PART D [id number] [phone] LAWRE NCE, PATIENT PART D ION D 2012 UP33 0 RIAN (WNR) Selected Encounter This section includes the information on record at [place] for the Encounter. Date/Time Encounter Type Encounter Reason Provider Source Description Jul 20, 2021 CASE MANAGEMENT MENTAL HEALTH ICD-10-CM G47.00 DAGOSHERIDAN 02:30 PM CLINIC - IND Insomnia, Y unspecified with Provider Comments: Insomnia ([facility] [id number]) IHE Encounter Template Text not used by [facility] Assessments - Encounter Diagnoses This section includes the primary and secondary diagnoses documented for the Encounter. Date/Time Primary/Secondary Diagnosis Name Provider Source Diagnosis Jul 20, 2021 PRIMARY Insomnia, DAGOGUALBERTO IVEY 03:19 PM unspecified Jul 20, 2021 SECONDARY Major depressive GUALBERTO LOZA LD 03:19 PM disorder, single episode, unspecified Jul 20, 2021 SECONDARY Post-traumatic GUALBERTO LOZA 03:19 PM stress disorder, unspecified Plan of Treatment: [...] Date/Time Appointment Type Appointment Facili ty Name Aug 05, 2021 02:00 PM AMBULATORY - [facility]CHIATRY [facility] Aug 16, 2021 02:00 PM AMBULATORY [facility]AT[facility] Aug 26, 2021 02:00 PM AMBULATORY [facility]CHIATRY [facility] Sep 03, 2021 11:00 AM AMBULATORY - [facility] Oct 28, 2021 02:00 PM AMBULATORY - [facility]CHIATRY [facility] Dec 02, 2021 01:30 PM AMBULATORY - [facility]CHIATRY [facility] Dec 07, 2021 01:00 PM AMBULAT[facility] [place] [facility] Dec 09, 2021 01:00 PM AMBULATORY PSYCHIATRY [facility] [place] Dec 14, 2021 02:00 PM AMBULATORY MEDICINE [facility] Jan 13, 2022 02:00 PM AMBULATORY MEDICINE [facility] Jan 17, 2022 01:00 PM AMBULATORY PSYCHIATRY [facility] [place] Jan 19, 2022 01:00 PM AMBULATORY PSYCHIATRY [facility] [facility] Social History: Smoking Status (Most current) and [...] took place. Date/Time Current Smoking Status Comment [facility] September 17, 2020 02:00 PM VA-TOBACCO FORMER USER [facility] Tobacco Use History This section includes a history of the smoking, or tobacco- related health factors, that were collected on or before the date of the Encounter. The data comes from the [place] facility where the Encounter took place. Date/Time Smoking Status/Tobacco Use Comment [facility] September 17, 2020 02:00 PM VA-TOBACCO QUIT 15 YRS OR [facility] MORE Jan 10, 2020 02:00 PM VA-TOBACCO FORMER USER [facility] Jan 10, 2020 02:00 PM VA-TOBACCO QUIT 15 YRS OR [facility] MORE Mar 23, 2018 02:31 PM VA-TOBACCO FORMER USER [facility] Mar 23, 2018 02:31 PM VA-TOBACCO QUIT 15 YRS OR [facility] MORE September 19, 2017 01:43 PM QUIT TOBACCO USE > 7 YEARS [facility] A[facility] September 15, 2016 01:21 PM QUIT TOBACCO USE > 7 YEARS [facility] quit 40 years ago May 12, 2015 10:44 AM QUIT TOBACCO USE > 7 YEARS [facility] Dec 27, 2006 10:00 AM QUIT TOBACCO USE > 7 YEARS [facility] Dec 26, 2005 08:41 AM QUIT TOBACCO USE 1-7 YEARS [facility] Aug 11, 2005 08:42 AM QUIT TOBACCO USE IN PAST Dec 09, 2004 08:20 AM QUIT TOBACCO USE IN PAST 2003Apr 02, 2004 08:07 AM QUIT TOBACCO USE IN PAST Quit several wks ago Jun 02, 2003 01:48 PM CURRENT SMOKER RADHA D States ocassionally Jan 31, 2002 01:44 PM HISTORY OF SMOKING [place] stopped tobacco 1 year ago Jan 31, 2002 01:44 PM QUIT TOBACCO USE 1-7 YEARS [facility] Apr 25, 2001 03:26 PM NON-TOBACCO USER [place] LD Stopped tobacco 3 years ago September 12, 2000 03:24 PM H[place]ORY OF SMOKING [place] Quit cigaretts 2 years ago Encounter Notes: All associated encounter notes This section contains the clinical notes associated to the Encounter. Date/Time Encounter Note(s) Provider Source Jul 20, 2021 03:13 PM MENTAL HEALTH CONSULT: GUALBERTO LOZA [facility] TITLE: CONSULT REPORT/CRANIAL ELECTROTHER APY STIMULATION STANDARD TITLE: MENTAL HEALTH CONSULT DATE OF NOTE: JUL 20, 2021@15:13 ENTRY DATE: JUL 20, 2021@15:13:31 AUTHOR: GUALBERTO LOZA EXP COSIGNER: URGENCY: STATUS: COMPLETED F: Alpha-Stim Trial arrived at clinic re: Alpha-Stim Trial # 3 and issued his personal device. is known to keno writer / runner and identified himsel f by name and date of . Juan Carlos is alert and oriented to person, place, time , and situation. Juan Carlos denies SI/HI, and or the use of any alcohol or illicit drugs. Blood Pressure: 168/94 (03/25/2019 13:42) Pain: 7 (09/20/2018 13:44) Patient Height: 68 in [172.7 cm] (03/25/2019 13: 42) Patient Weight: 251 lb. [113.85 kg] (03/25/2019 13:42) Pulse: 55 (03/25/2019 13:42) Respiration: 18 (03/25/2019 13:42) Temperature: 96.4 F [35.8 C] (03/25/2019 13:42) D: Active problems - Computerized Problem List is t he source for the followin. Renal Impairment ([facility] [id number]) 2. Depression ([facility] 38018735) 3. Co-management 4. Tear of left rotator cuff 5. Posttraumatic stress disorder 6. Type 2 diabetes mellitus in obese 7. Mixed hyperlipidemia 8. Restless legs 9. Insomnia 10. Chronic pain 11. Herniated Disc * 12. Sleep apnea (SNOMED CT 01571330) 13. Gastroesophageal Reflux Disorder 14. Coronary artery disease (SNOMED CT 25299423) 15. Glaucoma 16. Osteoarthritis (SNOMED CT 593716390) 17. Essential hypertension (SNOMED CT 38981035) 18. Hypercholesterolemia (SNOMED CT 85219056) 19. Obesity Active Outpatient Medications (including Supplie s): Active Outpatient Medications Status 1) ACETAMINOPHEN 250/ASA 250/CAFF 65MG TAB TAKE 1 TABLET ACTIVE BY MOUTH ONCE DAILY NEEDED FOR HEADACHE 2) ATORVASTATIN CALCIUM 80MG TAB TAKE ONE TABLET BY ACTIVE MOUTH ONCE DAILY FOR CHOLESTEROL 3) BETAMETHASONE DIPROPIONATE 0.05% CREAM APPLY A THIN ACTIVE LAYER TOPICALLY TWICE DAILY FOR ITCHING/RASH 4) BIMATOPROST 0.01% OPH SOLN INSTILL 1 DROP INT O EACH ACTIVE EYE AT BEDTIME TO REDUCE PRESSURE IN THE EYE 5) BRIMONIDINE 0.2%/TIMOLOL 0.5% OPH SOLN INSTIL L 1 DROP ACTIVE (S) INTO THE LEFT EYE TWICE DAILY 6) CARBOXYMETHYLCELLULOSE 0.5% OPH SOLN INSTILL 1 DROP ACTIVE INTO EACH EYE TWICE DAILY 7) CHOLECALCIF 25MCG (D3-1,000UNIT) TAB TAKE ONE TABLET ACTIVE BY MOUTH ONCE DAILY FOR VITAMIN SUPPLEMENTATION 8) CYCLOSPORINE 0.05% (PF) OPH EMUL 0.4ML INSTIL L 1 DROP ACTIVE INTO EACH EYE TWICE DAILY 9) DULOXETINE HCL 30MG EC CAP TAKE THREE CAPSULE S BY ACTIVE MOUTH ONCE DAILY FOR MOOD 10) GLUCOSE 4GM CHEW TAB CHEW FOUR TABLETS BY MO [facility] 15 ACTIVE MIN NEEDED FOR LOW BLOOD SUGAR (<70MG/DL), RECHECK SUGAR LEVEL IN 15 MINUTES AND IF <70, T AMY ANOTHER 4 TABLET 11) INSULIN NPH HUMAN 100 U/ML INJ NOVOLIN N INJ ECT 25 ACTIVE UNITS 100UNIT/ML SUBCUTANEOUSLY EVERY DAY AND INJECT 38 UNITS 100UNIT/ML AT BEDTIME FOR DIABE [place] PRESCRIBER : DR. LYNNETTE LEE 12) INSULIN SYRINGE 1ML 31G 8MM USE 1 SYRINGE TW ICE DAILY ACTIVE FOR INSULIN INJECTIONS 13) INSULIN,ASPART,HUMAN 100 UNIT/ML INJ INJECT 10-12 ACTIVE (S) UNITS SUBCUTANEOUSLY EVERY MORNING 30 MINUTES BEFORE BREAKFAST NEEDED AND INJECT 25-28 UNI TS EVERY EVENING 14) METOPROLOL SUCCINATE 200MG SA TAB TAKE ONE T ABLET BY ACTIVE (S) MOUTH ONCE DAILY FOR BLOOD PRESSURE/HEART 15) OMEPRAZOLE 20MG CAP,EC TAKE TWO CAPSULES BY MOUTH ACTIVE EVERY MORNING 30 MINUTES BEFORE BREAKFAST 16) TRIAMCINOLONE ACETONIDE 0.1% CREAM APPLY A T [...] T ACTIVE TOPICALLY TWICE DAILY 5) Non-VA DULAGLUTIDE 3MG/0.5ML INJ PEN 3MG ACTI VE SUBCUTANEOUSLY ONCE A WEEK 6) Non-VA FENOFIBRATE TAB 54MG BY MOUTH DAILY AC TIVE 7) Non-VA FUROSEMIDE 40MG TAB 40MG BY MOUTH TWIC E DAILY ACTIVE 8) Non-VA LOSARTAN POTASSIUM 100MG TAB 100MG BY MOUTH ACTIVE DAILY 9) Non-VA LOSARTAN POTASSIUM 50MG TAB 50MG BY MO [facility] ACTIVE 10) Non-VA OXYCODONE HCL 5MG/APAP 325MG TAB 1 TA BLET BY ACTIVE MOUTH EVERY 4 TO 6 HOURS NEEDED 11) Non-VA ROPINIROLE HCL 3MG TAB 3MG BY MOUTH A CTIVE 12) Non-VA TIMOLOL MALEATE 0.5% OPH SOLN 1 DROP DAILY ACTIVE 13) Non-VA VITAMIN E 90MG (200 UNIT) CAP 200UNT BY MOUTH ACTIVE EVERY DAY 29 Total Medications A/P: [place] is utilizing Alpha-Stim for the diagnose s of PTSD and insomnia Juan Carlos reports finding benefit from the use of Alpha-Stim and is pleased to receive his own Alpha-Stim. Juan Carlos was oriented to his pers onal Alpha-Stim and was observed setting it up without difficulty. Juan Carlos u tilized the Alpha-Stim again for 20 minutes and reports h e quickly noted similar benefit. Juan Carlos was encouraged to remain mindful of anything he notes good or b ad after using the Alpha-Stim and is aware that he may contact keno writer / runner to discu ss as needed. Upcoming Appointments: 08/05/2021 14:00 CWM/SO/TH/VVC/MHC/MESSINA 08/16/2021 14:00 CWM/SO/TH/VVC/MHC/LEAVITT 08/26/2021 14:00 CWM/SO/TH/VVC/MHC/MESSINA Patient provided with [facility] joe r([phone]) and urged to call that number at any time if he has thoughts about suicide and, or to call 911 or go to nearest E.R. if he has suicidal thoughts. is aware that he can call or walk-in at anytime prior to next appointment. [place] was provided with susi lindquist's contact information for use as needed. No barriers; Patient understands and agrees to c urrent treatment plan. If [place] has any questions, concerns, or edgar es in current health status will call or come [facility] to the [facility]. 30 minutes spent in patient care and education. /justine/ GUALBERTO LOZA, MSN, RN, CNL MENTAL HEALTH NURSE INTERNATIONAL SOURCING MANAGER Signed: 07/20/2021 15:20
--- OUTSIDE RECORDS SUMMARY | 2022-02-03 00:46 | XMS_ITS | Encounter Summary ---
:1950 Author Organization Department [facility] rs Address [address] [place] [id number] Support Name Relationship Address Phone LORI HOPKINS Unavailable [address] [place] [address] [place] [address] LORI HOPKINS Unavailable [address] [place] [address] [place] [address] Insurance Providers: All historical and current Section [...] Number Silva JARRED PREFERRED STAND May 08 [id number] [phone] PROVIDER SHIVA [phone] RAIN MILLAN FEDERAL ORGANIZAT SELF ION (PPO) [place]BS [place] PREFERRED STAND May 08 [id number] [phone] JAMES CE PATIENT FEP PROVIDER SHIVA [phone] RIAN MILLAN ORGANGERMANAT INDIV ION (PPO) IDUAL BCBS OF PREFERRED STAND May 08 [id number] [phone] JAMES CE PATIENT MASS PROVIDER SHIVA 2010 87 3 RIAN MILLAN FEDERAL ORGANIZAT SELF ION (PPO) BCBS OF PREFERRED STAND May 08 [id number] [phone] JAMES CE PATIENT MASS FEP PROVIDER SHIVA 2010 87 6 RIAN MILLAN ORGANIZAT SELF ION (PPO) BCBS OF DENTAL STAND May 08, DENTAL [id number] [phone] SANDEEP, PATIENT MASS FEP INSURANCE SHIVA 2010 87 6 RIAN DENTAL BCBS OF [place] MEDICARE FEP Dec 06 [id number] [phone] SANDEEP PATIENT FEP SECONDARY STAND 2019 [phone] RIAN MILLAN (NO B SHIVA EXC) MEDSE C [place] PRESCRIPT FEP Dec 06, [id number] SANDEEP PATIENT FEP ION ONLY 2014 0 [phone] RIAN MILLAN [place] PRESCRIPT May 08, [id number] [phone] EDUARDO ENCEstella PATIENT FEP ION 2011 0 87 1 RIAN MILLAN PRESCRIPT CAREM May 08, [id number] [phone] EDUARDO ENCEstella, PATIENT FEP BCBS ION ARK 2011 0 87 1 RIAN FEPRX PLAN [place]ARK PRESCRIPT May 08, [id number] [phone] LAWR ENCE PATIENT FEPRX PLAN ION 2011 0 [phone] RIAN MILLAN-F PRESCRIPT FEPRX May 08, [id number] [phone] [place] JENENCE PATIENT EP BCBS ION /PT D 2010 0 87 1 RIAN MILLAN [facility] May 18, [id number] [phone] JAMES CE, PATIENT RE [place] 2003 32 7 RIAN CE ORGANIZ EXPRESS PRESCRIPT CONNE May 18, [id number] [phone] JAMES CE, PATIENT SCRIPTS ION CTICA 2003 [id number] 7 RIAN ([id number]) RE MEDICARE MEDICARE PART Oct 06, PART A [id number] JAMES CE, PATIENT (WNR) (M) A 2012 UP33 00 [place] MEDICARE MEDICARE PART Oct 06, PART B [id number] JAMES CE, PATIENT (WNR) (M) B 2012 UP33 00 [place] MEDICARE MEDICARE PART Oct 06, PART A [id number] [phone] JAMES CE, PATIENT (WNR) (M) A 2012 UP33 2 [place] MEDICARE MEDICARE PART Oct 06, PART B [id number] [phone] JAMES CE, PATIENT (WNR) (M) B 2012 UP33 2 [place] MEDICARE MEDICARE PART Oct 06, PART A [id number] [phone] Lisa HOPKINS (WNR) (M) A 2012 UP33 [phone] [place] MEDICARE MEDICARE PART Oct 06, PART A [id number] [id number] JAMES CE, PATIENT (WNR) (M) A 2012 UP33 7 RIAN MEDICARE MEDICARE PART Oct 06, PART B [id number] [phone] JAMES CE, PATIENT (WNR) (M) B 2012 UP33 7 RIAN MEDICARE MEDICARE PART Oct 06, PART B [id number] [phone] Lisa HOPKINS ATIENT (WNR) (M) B 2012 UP33 [phone] RIAN MEDICARE MEDICARE PART Dec 06, PART D [id number] Lisa HOPKINS ATIENT PART D (M) D 2018 UP33 [phone] RIAN (WNR) MEDICARE MEDICARE PART Oct 06, PART D [id number] [phone] JAMES CE, PATIENT PART D (M) D 2012 UP33 7 RIAN (WNR) MEDICARE PRESCRIPT PART Oct 06, PART D [id number] LAWRE NCE, PATIENT PART D ION D 2012 32A 0 RIAN (WNR) MEDICARE PRESCRIPT PART Oct 06, PART D [id number] [phone] LAWRE NCE, PATIENT PART D ION D 2012 UP33 0 RIAN (WNR) Selected Encounter This section includes the information on record at [place] for the Encounter. Date/Time Encounter Type Encounter Description Reason Provider Source Jul 21, 2021 05:50 Outpatient Encounter OPTOMETRY PM IHE Encounter Template Text not used by [place] Plan of Treatment: Future Appointments (+ 6 months) and Future Tests (+/- 45 days) The Plan of Treatment section includes future care activities for the patient from all [place] treatmentfacilities. This section includes future appointments and future orders which are active, pending orscheduled.Future Appointments This section includes appointments that were scheduled to occur 6 months from the date of the Encounter, up to a maximum of 20 appointments. The data comes from all [place] treatment facilities. Appointment Date/Time Appointment Type Appointment Facili ty Name Aug 05, 2021 02:00 PM AM[facility] [place] Aug 16, 2021 02:00 PM [facility] [place] Aug 26, 2021 02:00 PM [facility] [place] Sep 03, 2021 11:00 AM [facility] - [facility] Oct 28, 2021 02:00 PM [facility] [place] Dec 02, 2021 01:30 PM [facility] [place] Dec 07, 2021 01:00 PM [facility] Dec 09, 2021 01:00 PM [facility] [place] Dec 14, 2021 02:00 PM [facility] [place] Jan 13, 2022 02:00 PM [facility] [place] Jan 17, 2022 01:00 PM [facility] [place] Jan 19, 2022 01:00 PM [facility] [place] Encounter Notes: All associated encounter notes This section contains the clinical notes associated to the Encounter. Date/Time Encounter Note(s) Provider Source Jul 21, 2021 05:50 PM TELEPHONE ENCOUNTER NOTE: ISABEL ALVARADO CNTRL WSTRN LOCAL TITLE: TELEPHONE NOTE/SPECIALTY CLINIC [facility] STANDARD TITLE: TELEPHONE ENCOUNTER NOTE DATE OF NOTE: JUL 21, 2021@17:50 ENTRY DATE: JUL 21, 2021@17:51:02 AUTHOR: ISABEL ALVARADO COSIGNER: URGENCY: STATUS: COMPLETED TELEPHONE NOTE/SPECIALTY CLINIC Has ADDENDA Called and left message on voicemail. Patients a ppointment with Optometry on 06/20/22 @ 1500 has been cancelled and needs to be rescheduled with a PID of 06/20/22 Letter mailed /justine/ ISABEL ALVARADO LEAD ADVANCED CLERK [employer]ERAL DETAIL Signed: 07/21/2021 17:52 08/04/2021 ADDENDUM STATUS: COMPLETED PUTTING OPTOMETRY RTC PID 06/20/2022 INTO [facility] DUE TO [facility]ERANS FAILURE TO RESPOND /justine/ RAY GUALLPA Signed: 08/04/2021 08:32
--- OUTSIDE RECORDS SUMMARY | 2022-02-03 00:46 | XMS_ITS | Encounter Summary ---
:1950 Author Organization Department [facility] rs Address [address] [place] [address] Support Name Relationship Address Phone LORI HOPKINS Unavailable [address] [place] [address] [place] [address] LORI HOPKINS Unavailable [address] [facility] [address] Insurance Providers: All historical and current Section [...] Number Silva JARRED PREFERRED STAND May 08 [id number] [phone] PROVIDER SHIVA [phone] RIAN MILLAN FEDERAL ORGANIZAT SELF ION (PPO) [place]BS [place] PREFERRED STAND May 08 [id number] [phone] JAMES CE PATIENT FEP PROVIDER SHIVA 2010 87 123 RIAN MILLAN ORGANGERMANAT INDIV ION (PPO) IDUAL BCBS OF PREFERRED STAND May 08 [id number] [phone] JAMES CE PATIENT MASS PROVIDER SHIVA 2010 87 3 RIAN MILLAN FEDERAL ORGANIZAT SELF ION (PPO) BCBS OF PREFERRED STAND May 08 [id number] [phone] JAMES CE PATIENT MASS FEP PROVIDER SHIVA 2010 87 6 RIAN MILLAN ORGANIZAT SELF ION (PPO) BCBS OF DENTAL STAND May 08, DENTAL [id number] [phone] SANDEEP, PATIENT MASS FEP INSURANCE SHIVA 2010 87 6 RIAN DENTAL [place]BS OF [place] MEDICARE FEP Dec 06 [id number] SANDEEP PATIENT FEP SECONDARY STAND 2019 [phone] RIAN MILLAN (NO B SHIVA EXC) MEDSE C [place] PRESCRIPT FEP Dec 06, [id number] SANDEEP PATIENT FEP ION ONLY 2014 0 [phone] RIAN MILLAN [place] PRESCRIPT May 08, [id number] [phone] EDUARDO MATTHEW PATIENT FEP ION 2011 0 87 1 RIAN MILLAN PRESCRIPT CAREM May 08, [id number] [phone] EDUARDO ENCEstella, PATIENT FEP BCBS ION ARK 2011 0 87 1 RIAN FEPRX PLAN [place] PRESCRIPT May 08, [id number] [phone] LAWR ENCEstella PATIENT FEPRX PLAN ION 2011 0 [phone] IRAN MILLAN-F PRESCRIPT FEPRX May 08, [id number] [phone] LA WRENCE PATIENT EP BCBS ION /PT D 2010 0 87 1 RIAN MILLAN [facility] May 18, [id number] [phone] JAMES CE, PATIENT RE [facility] AL 2003 32 7 RIAN CE ORGANIZ EXPRESS PRESCRIPT CONNE May 18, [id number] [phone] JAMES CE, PATIENT SCRIPTS ION CTICA 2003 [id number] 7 RIAN ([id number]) RE MEDICARE MEDICARE PART Oct 06, PART A [id number] Lisa HOPKINS (WNR) (M) A 2012 UP33 [phone] [place] MEDICARE MEDICARE PART Oct 06, PART B [id number] 800 Lisa HOPKINS (WNR) (M) B 2012 UP33 [phone] [place] MEDICARE MEDICARE PART Oct 06, PART A [id number] [phone] JAMES CE, PATIENT (WNR) (M) A 2013 UP33 00 [place] MEDICARE MEDICARE PART Oct 06, PART B [id number] [phone] JAMES CE, PATIENT (WNR) (M) B 2013 UP33 00 [place] MEDICARE MEDICARE PART Oct 06, PART A [id number] [phone] JAMES CE, PATIENT (WNR) (M) A 2013 UP33 2 [place] MEDICARE MEDICARE PART Oct 06, PART A [id number] [phone] JAMES CE, PATIENT (WNR) (M) A 2012 UP33 7 RIAN MEDICARE MEDICARE PART Oct 06, PART B [id number] [phone] JAMES CE, PATIENT (WNR) (M) B 2012 UP33 7 RIAN MEDICARE MEDICARE PART Oct 06, PART B [id number] [phone] JAMES CE, PATIENT (WNR) (M) B 2012 UP33 2 RIAN MEDICARE MEDICARE PART Dec 06, PART D [id number] Lisa HOPKINS ATIENT PART D (M) D 2018 UP33 [phone] RIAN (WNR) MEDICARE PRESCRIPT PART Oct 06, PART D [id number] LAWRE NCE, PATIENT PART D ION D 2012 32A 0 IRAN (WNR) MEDICARE PRESCRIPT PART Oct 06, PART D [id number] [phone] LAWRE NCE, PATIENT PART D ION D 2012 UP33 0 RIAN (WNR) MEDICARE MEDICARE PART Oct 06, PART D [id number] JAMES CE, PATIENT PART D (M) D 2012 UP33 7 RIAN (WNR) Selected Encounter This section includes the information on record at [place] for the Encounter. Date/Time Encounter Type Encounter Reason Provider Source Description Jul 16, 2021 FUNCTIONAL PROSTHETICS/ORTHO ICD-10-CM [place] 02:24 PM ELECTRIC STIM NOS TICS F43.12 N G Post-traumatic stress disorder, chronic with Provider Comments: Post-Traumatic Stress Disorder, Chronic IHE Encounter Template Text not used by [place] Assessments - Encounter Diagnoses This section includes the primary and secondary diagnoses documented for the Encounter. Date/Time Primary/Secondary Diagnosis Name Provider Source Diagnosis Aug 02, 2021 PRIMARY Post-traumatic NIMCO HOPKINS [place] CNTRL [place] TRN 02:26 PM stress RA B [place] H[facility] disorder, chronic Plan of Treatment: Future Appointments (+ 6 months) and Future Tests (+/- 45 days) The Plan of Treatment section includes future care activities for the patient from all [place] treatmentfacilities. This section includes future appointments and future orders which are active, pending orscheduled.Future Appointments This section includes appointments that were scheduled to occur 6 months from the date of the Encounter, up to a maximum of 20 appointments. The data comes from all [place] treatment facilities. Appointment Date/Time Appointment Type Appointment Facili ty Name Jul 20, 2021 02:30 PM AMBULATORY - [facility] [place] Aug 05, 2021 02:00 PM AM[facility]ORY [facility] [place] Aug 16, 2021 02:00 PM AM[facility] [place] Aug 26, 2021 02:00 PM AMB[facility]ORY [facility] [place] Sep 03, 2021 11:00 AM [facility]ATORY - REHAB MEDICINE [facility] Oct 28, 2021 02:00 PM AMBULATORY - [facility] [place] Dec 02, 2021 01:30 PM AMBULATORY - [facility] [place] Dec 07, 2021 01:00 PM AM[facility] - [place] [facility] Dec 09, 2021 01:00 PM AM[facility]ORY - [facility]IAT[facility] [place] Dec 14, 2021 02:00 PM AMBULATORY - [facility]ICINE [place] Jan 13, 2022 02:00 PM [facility]ORY - [facility]IC[facility] [place]
--- OUTSIDE RECORDS SUMMARY | 2022-02-03 00:47 | XMS_ITS | Encounter Summary ---
:1950 Author Organization Department of [facility] Address [address] [place] [id number] Support Name Relationship Address Phone LORI HOPKINS Unavailable [address] [facility] [phone] [place] [address] LORI HOPKINS Unavailable [address] [facility] [phone] 8 [place] [address] Insurance Providers: All historical and current Section [...] Number Silva ANTHZARA PREFERRED STAND May 08 [id number] [phone] PROVIDER SHIVA 2011 [id number] [phone] RIAN MILLAN FEDERAL ORGANIZAT SELF ION (PPO) [place]BS [place] PREFERRED STAND May 08 [id number] [phone] JAMES CE PATIENT FEP PROVIDER SHIVA [phone] RIAN MILLAN ORGANGERMANAT INDIV ION (PPO) IDUAL BCBS OF PREFERRED STAND May 08 [id number] [phone] JAMES CE PATIENT MASS PROVIDER SHIVA [phone] [id number] RIAN MILLAN FEDERAL ORGANIZAT SELF ION (PPO) BCBS OF PREFERRED STAND May 08 [id number] [phone] JAMES CE PATIENT MASS FEP PROVIDER SHIVA [phone] RIAN MILLAN ORGANIZAT SELF ION (PPO) BCBS OF DENTAL STAND May 08, DENTAL [id number] [phone] SANDEEP, PATIENT MASS FEP INSURANCE SHIVA [phone] RIAN DENTAL [place] FEP Dec 06 [id number] SANDEEP PATIENT FEP SECONDARY STAND 2019 [phone] RIAN MILLAN (NO B SHIVA EXC) MEDSE C CAREMARK PRESCRIPT FEP Dec 06, [id number] SANDEEP PATIENT FEP ION ONLY 2014 [phone] RIAN MILLAN CARELIONEL PRESCRIPT May 08, [id number] [phone] EDUARDO MATTHEW PATIENT FEP ION 2011 0 87 1 RIAN MILLAN PRESCRIPT CAREM May 08, [id number] [phone] EDUARDO ENCEstella, PATIENT FEP BCBS ION ARK 2011 0 87 1 RIAN FEPRX PLAN CAREMARK PRESCRIPT May 08, [id number] [phone] ENCE PATIENT FEPRX PLAN ION 2011 [id number] [phone] RIAN MILLAN-F PRESCRIPT FEPRX May 08, [id number] [phone] LA WRENCE PATIENT EP BCBS ION /PT D 2010 0 87 1 RIAN MILLAN [facility] May 18, [id number] [phone] JAMES CE, PATIENT RE JONATAN AL 2003 32 7 RIAN CE ORGANIZ EXPRESS PRESCRIPT CONNE May 18, [id number] [phone] JAMES CE, PATIENT SCRIPTS ION CTICA 2003 [id number] RIAN ([id number]) RE MEDICARE MEDICARE PART Oct 06, PART B [id number] JAMES CE, PATIENT (WNR) (M) B 2012 UP33 2 [place] MEDICARE MEDICARE PART Oct 06, PART A [id number] [id number] JAMES CE, PATIENT (WNR) (M) A 2013 UP33 00 [place] MEDICARE MEDICARE PART Oct 06, PART B [id number] [phone] JAMES CE, PATIENT (WNR) (M) B 2013 UP33 00 [place] MEDICARE MEDICARE PART Oct 06, PART A [id number] Lisa HOPKINS (WNR) (M) A 2013 UP33 [id number] [place] MEDICARE MEDICARE PART Oct 06, PART A [id number] [phone] JAMES CE, PATIENT (WNR) (M) A 2013 UP33 7 [place] MEDICARE MEDICARE PART Oct 06, PART B [id number] [phone] JAMES CE, PATIENT (WNR) (M) B 2013 UP33 7 RIAN MEDICARE MEDICARE PART Oct 06, PART B [id number] Lisa HOPKINSLIANA (WNR) (M) B 2012 UP33 [phone] RIAN MEDICARE MEDICARE PART Oct 06, PART A [id number] JAMES CE, PATIENT (WNR) (M) A 2012 UP33 2 RIAN MEDICARE MEDICARE PART Dec 06, PART D [id number] Lisa HOPKINS ATIENT PART D (M) D 2018 UP33 [phone] RIAN (WNR) MEDICARE MEDICARE PART Oct 06, PART D [id number] [id number] JAMES CE, PATIENT PART D (M) D 2012 UP33 7 RIAN (WNR) MEDICARE PRESCRIPT PART Oct 06, PART D [id number] [phone] LAWRE NCE, PATIENT PART D ION D 2012 [id number] RIAN (WNR) MEDICARE PRESCRIPT PART Oct 06, PART D [id number] LAWRE NCE, PATIENT PART D ION D 2012 [id number] 0 RIAN (WNR) Selected Encounter This section includes the information on record at NH for the Encounter. Date/Time Encounter Type Encounter Reason Provider Source Description Aug 16, 2021 OFFICE O/P EST MENTAL HEALTH ICD-10-CM F43.10 ST JONE LEAVITT 02:00 PM MOD 30-39 MIN CLINIC - IND Post-traumatic EN G stress disorder, unspecified with Provider Comments: Posttraumatic stress disorder ([facility] [id number]) IHE Encounter Template Text not used by [facility] Assessments - Encounter Diagnoses This section includes the primary and secondary diagnoses documented for the Encounter. Date/Time Primary/Secondary Diagnosis Name Provider Source Diagnosis Aug 16, 2021 PRIMARY Post-traumatic PEDRO LEAVITT D 02:29 PM stress disorder, G unspecified Aug 16, 2021 SECONDARY detention PEDRO LEAVITT 02:29 PM (current) use of G opiate analgesic Aug 16, 2021 SECONDARY Major depressive PEDRO LEAVITTD 02:29 PM disorder, single G episode, unspecified Aug 16, 2021 SECONDARY Other chronic pain PEDRO LEAVITT [facility] 02:29 PM G Aug 16, 2021 SECONDARY Restless legs PEDRO LEAVITT 02:29 PM syndrome G Aug 16, 2021 SECONDARY Sleep apnea, PEDRO LEAVITT 02:29 PM unspecified G Plan of Treatment: Future Appointments (+ 6 months) and Future Tests (+/- 45 days) The Plan of Treatment section includes [facility] care [facility] the [facility] This section includes future appointments and future orders which are active, pending orscheduled.Future Appointments This section includes appointments that were scheduled to occur 6 months from the date of the Encounter, up to a maximum of 20 appointments. The data comes from all [place] treatment facilities. Appointment Date/Time Appointment Type Appointment Facili ty Name Aug 26, 2021 02:00 PM [facility] [place] Sep 03, 2021 11:00 AM AMBULATORY - REHAB MEDICINE [facility] D Oct 28, 2021 02:00 PM [facility] [place] Dec 02, 2021 01:30 PM [facility] [place] Dec 07, 2021 01:00 PM [facility] Dec 09, 2021 01:00 PM [facility] Dec 14, 2021 02:00 PM [facility] [place] Jan 13, 2022 02:00 PM [facility] [place] Jan 17, 2022 01:00 PM [facility] Jan 19, 2022 01:00 PM [facility] Feb 03, 2022 01:00 PM [facility] Social History: Smoking Status (Most current) and Tobacco Use (All prior to encounter date) This section includes the most current, and the historical, smoking and tobacco-related health factors from the NH facility where the Encounter took place.Current Smoking Status This section includes the most current smoking, or tobacco-related health factor, from the NH facility where the Encounter took place. Date/Time Current Smoking Status Comment [facility] September 17, 2020 02:00 PM VA-TOBACCO FORMER USER [facility] Tobacco Use History This section includes a history of the smoking, or tobacco- related health factors, that were collected on or before the date of the Encounter. The data comes from the [place] facility where the Encounter took place. Date/Time Smoking Status/Tobacco Use Comment [facility] September 17, 2020 02:00 PM VA-TOBACCO QUIT 15 YRS OR [facility] Jan 10, 2020 02:00 PM VA-TOBACCO FORMER USER [facility] Jan 10, 2020 02:00 PM VA-TOBACCO QUIT 15 YRS OR [facility] Mar 23, 2018 02:31 PM VA-TOBACCO FORMER USER [facility] Mar 23, 2018 02:31 PM VA-TOBACCO QUIT 15 YRS OR [facility] September 19, 2017 01:43 PM QUIT TOBACCO USE > 7 YEARS [facility] September 15, 2016 01:21 PM QUIT TOBACCO USE > 7 YEARS [place] AGO quit 40 years ago May 12, [...] 08:07 AM QUIT TOBACCO USE IN PAST [facility] Quit several wks ago Jun 02, 2003 01:48 PM CURRENT SMOKER RADHA Reece States ocassionally Jan 31, 2002 01:44 PM HISTORY OF SMOKING [place] stopped tobacco 1 year ago Jan 31, 2002 01:44 PM QUIT TOBACCO USE 1-7 YEARS [facility] Apr 25, 2001 03:26 PM NON-TOBACCO USER [facility] Stopped tobacco 3 years ago September 12, 2000 03:24 PM HISTORY OF SMOKING [place] Quit cigaretts 2 years ago Encounter Notes: All associated encounter notes This section contains the clinical notes associated to the Encounter. Date/Time Encounter Note(s) Provider Source Aug 16, 2021 02:13 PM TELEHEALTH NOTE: PEDRO LEAVITT LOCAL TITLE: [place] VIDEO CONNECT PSYCHIATRIST NOTE STANDARD TITLE: TELEHEALTH NOTE DATE OF NOTE: AUG 16, 2021@14:13 ENTRY DATE: AUG 16, 2021@14:14:04 AUTHOR: PEDRO LEAVITT EXP COSIGNER: URGENCY: STATUS: COMPLETED [place] Video Connect (VVC) Standard Documentation VVC Clinician Resources Only: E911 (Emergency Call Relay Center): [phone] [facility] Crisis Line - ( [phone]) press #1. PAMELA Suicide Coordinator [phone], Ext. [phone]; Back-up Ext. [phone] Videotape Sales Representative of the Day(AOD), Danny SANTIAGO [phone], Ext. [phone] Introduction: Visit is being conducted by [employer]. [place] identified with 2 identifiers: [x ] Full Name [x ] Date of [ ] VA ID Card Emergency Plan: [place] confirmed and/or pro vided the following information in case of emergency or technology failure. PATIENT PHONE - PHONE NUMBER [CELLULAR] - Is patient phone number correct, if not, enter b elow: 's phone number: RIAN HOPKINS JR [address], [place], [address] [place]'s present location and address for appoi ntment: chart 's emergency contact name and phone numbe r: chart [place] reported that location is private and sa fe: Yes Informed Consent: [place] informed of the risks and benefits of Te health video care. has the right to refuse video services. If refuses video visit, a vmdd-ln-lcis visit will be scheduled. verbalized consent for this video visit: Yes [place] provided consent for any other persons p resent for visit: N/A If yes, who and relationship to patient: Secure visit: Visit was locked for security and privacy:Yes 30 minutes for encounter, including chart review , interview, charting chart reviewed Pt stable, he again reports improved depression and ptsd sx's --he feels the Cymbalta has helped with this. He feels that his irritability/anger has improved with psychotherapy and perhaps with Cym leo. He also reports a positive response to alpha stim especially for s leep, sleeping up to 7 to 8 hours per night which he feels probably helps daytime irritability. He reports that his feels he is less irritable as well . Nightmares decreased. Affect brightens appropriately. Pt denies SI and violent ideation. Well organize d thoughts. No h/o psychotic sx's. No PI or delusi ons presented. Speech normal/fluent. Cognitive exam grossly intact. Llamas s interests. The patient is sa tisfied by his current symptom management and would like to continue the medication and alpha stim t he same. 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 Renal Impairment ([facility] [id number]) 2. Depression ([facility] [id number]) 3. Co-management 4. Tear of left rotator cuff 5. Posttraumatic stress disorder 6. Type 2 diabetes mellitus in obese 7. Mixed hyperlipidemia 8. Restless legs 9. Insomnia 10. Chronic pain 11. Herniated Disc * 12. Sleep apnea (SNOMED CT 74565321) 13. Gastroesophageal Reflux Disorder 14. Coronary artery disease (SNOMED CT 04981374) 15. Glaucoma 16. Osteoarthritis (SNOMED CT 549571099) 17. Essential hypertension (SNOMED CT 22719268) 18. Hypercholesterolemia (SNOMED CT 48642888) 19. Obesity Active Outpatient Medications (including Supplie [...] (S) INTO THE LEFT EYE TWICE DAILY 5) CARBOXYMETHYLCELLULOSE 0.5% OPH SOLN INSTILL 1 DROP ACTIVE INTO EACH EYE TWICE DAILY 6) CHOLECALCIF 25MCG (D3-1,000UNIT) TAB TAKE ONE TABLET ACTIVE BY MOUTH ONCE DAILY FOR VITAMIN SUPPLEMENTATION 7) CYCLOSPORINE 0.05% (PF) OPH EMUL 0.4ML INSTIL L 1 DROP ACTIVE INTO EACH EYE TWICE DAILY 8) DULOXETINE HCL 30MG EC CAP TAKE THREE CAPSULE S BY ACTIVE MOUTH ONCE DAILY FOR MOOD 9) GLUCOSE 4GM CHEW TAB CHEW FOUR TABLETS BY GRISELDA TH 15 ACTIVE MIN NEEDED FOR LOW BLOOD SUGAR (<70MG/DL), RECHECK SUGAR LEVEL IN 15 MINUTES AND IF <70, T AMY ANOTHER 4 TABLET 10) INSULIN NPH HUMAN 100 U/ML INJ NOVOLIN N INJ ECT 25 ACTIVE UNITS 100UNIT/ML SUBCUTANEOUSLY EVERY DAY AND INJECT 38 UNITS 100UNIT/ML AT BEDTIME FOR DIABE [place] PRESCRIBER : DR. LYNNETTE LEE 11) INSULIN SYRINGE 1ML 31G 8MM USE 1 SYRINGE TW ICE DAILY ACTIVE FOR INSULIN INJECTIONS 12) INSULIN,ASPART,HUMAN 100 UNIT/ML INJ INJECT 10-12 ACTIVE UNITS SUBCUTANEOUSLY EVERY MORNING 30 MINUTES BEFORE BREAKFAST NEEDED AND INJECT 25-28 UNI TS EVERY EVENING 13) METOPROLOL SUCCINATE 200MG SA TAB TAKE ONE T ABLET BY ACTIVE MOUTH ONCE DAILY FOR BLOOD PRESSURE/HEART 14) OMEPRAZOLE 20MG CAP,EC TAKE TWO CAPSULES [...] LOSARTAN POTASSIUM 50MG TAB 50MG BY MO [facility] ACTIVE 10) Non-VA OXYCODONE HCL 5MG/APAP 325MG TAB 1 TA BLET BY ACTIVE MOUTH EVERY 4 TO 6 HOURS NEEDED 11) Non-VA ROPINIROLE HCL 3MG TAB 3MG BY MOUTH A CTIVE 12) Non-VA TIMOLOL MALEATE 0.5% OPH SOLN 1 DROP DAILY ACTIVE 13) Non-VA VITAMIN E 90MG (200 UNIT) CAP 200UNT BY MOUTH ACTIVE EVERY DAY 28 Total Medications pcp -- [facility] [place] PAST PSYCH MED HX: prozac -- not help ambien -- has not taken for awhile amitriptyline -- has not take for awhile for didier n denies other psych meds hx zoloft -- not help effexor hydroxyzine -- not help sleep trazodone -- LLAMAS remeron -- did not add benefit melatonin [...] denied suicidal and violent ideation, but the [employer] Crisis Line information and number were reviewed w patient as a precaution. The patient also understands to call 911 or to go to ER in the ev ent of an emergency. Continue psychotherapy w Dr Herrmann continue w alpha stim device which helps anxiety /PTSD symptoms and patient reports sleeping much better since using this. H e feels his irritability is better as well. I also offered pt CBT for insomnia -- pt decline d After discussion, we decided to continue cymabal ta 90 mg daily --which has provided at benefit for depression and perhaps f or PTSD symptoms. We decided against increasing the dose , as it i s already relatively high we want to avoid side effects. consider wellbutrin, trintellix, vortioxetine if insuff reponse to cymbalta. Alternatively consider augmenting Cymb leighton with BuSpar. However for now the patient prefers not to change medication but to continue the Cymbalta, as he has benefit with that we again discussed options including prazosin or [...] pt will share instructions w his The discussion with patient about treatments inc luding medications involved shared decision making. The patient was educated about the rationale [...] denies recent gambling -- recommended GA rtc 3 mo for med f/u or sooner thr [...] /justine/ PEDRO LEAVITT MD STAFF PSYCHIATRIST Signed: 08/16/2021 14:29 Receipt Acknowledged By: * AWAITING SIGNATURE * LALO LIGHT * AWAITING SIGNATURE * EDITH TEJEDA
--- OUTSIDE RECORDS SUMMARY | 2022-02-03 00:47 | XMS_ITS | Encounter Summary ---
:1950 Author Organization [facility] Address [address] [place] [address] Support Name Relationship Address Phone LORI HOPKINS Unavailable [address] [facility] [place] [address] LORI HOPKINS Unavailable [address] [facility] [place] [address] Insurance Providers: All historical and current Section [...] Number Silva JARRED PREFERRED STAND May 08 [id number] PROVIDER SHIVA 2010 [id number] RIAN MILLAN FEDERAL ORGANIZAT SELF ION (PPO) BCBS DE PREFERRED STAND May 08 [id number] [phone] JAMES CE PATIENT FEP PROVIDER SHIVA 2010 87 123 RIAN MILALN ORGANGERMANAT INDIV ION (PPO) IDUAL BCBS OF PREFERRED STAND May 08 [id number] [phone] JAMES CE PATIENT MASS PROVIDER SHIAV 2010 87 3 RIAN MILLAN FEDERAL ORGANIZAT SELF ION (PPO) BCBS OF PREFERRED STAND May 08 [id number] [phone] JAMES CE PATIENT MASS FEP PROVIDER SHIVA 2010 87 6 RIAN MILLAN ORGANIZAT SELF ION (PPO) BCBS OF DENTAL STAND May 08, DENTAL [id number] [phone] SANDEEP, PATIENT MASS FEP INSURANCE SHIVA 2010 87 6 RIAN DENTAL BCBS OF [place] MEDICARE FEP Dec 06 [id number] SANDEEP PATIENT FEP SECONDARY STAND 2019 87 [phone] RIAN MILLAN (NO B SHIVA EXC) MEDSE C CAREMARK PRESCRIPT FEP Dec 06, [id number] SANDEEP PATIENT FEP ION ONLY 2013 0 87 [phone] RIAN MILLAN PRESCRIPT May 08, [id number] [phone] EDUARDO MATTHEW PATIENT FEP ION 2011 0 87 1 RIAN MILLAN PRESCRIPT CAREM May 08, [id number] [phone] EDUARDO MATTHEW, PATIENT FEP BCBS ION ARK 2011 0 87 1 RIAN FEPRX PLAN CAREMARK PRESCRIPT May 08, [id number] [phone] LAWR ENCEstella PATIENT FEPRX PLAN ION 2010 0 87 331 RIAN MILLAN-F PRESCRIPT FEPRX May 08, [id number] [phone] LA JENENCE PATIENT EP BCBS ION /PT D 2010 0 87 1 RIAN MILLAN [facility] May 18, [id number] [phone] JAMES CE, PATIENT RE [place] 2003 32 7 RIAN CE ORGANIZ EXPRESS PRESCRIPT CONNE May 18, [id number] [phone] JAMES CE, PATIENT SCRIPTS ION CTICA 2002 [id number] RIAN ([id number]) RE MEDICARE MEDICARE PART Oct 06, PART A [id number] Lisa HOPKINS (WNR) (M) A 2012 UP33 [id number] JOSEPH MEDICARE MEDICARE PART Oct 06, PART A [id number] JAMES CE, PATIENT (WNR) (M) A 2013 UP33 00 [place] MEDICARE MEDICARE PART Oct 06, PART B [id number] 800 Lisa HOPKINS (WNR) (M) B 2012 UP33 [id number] [place] MEDICARE MEDICARE PART Oct 06, PART A [id number] JAMES CE, PATIENT (WNR) (M) A 2013 UP33 2 [place] MEDICARE MEDICARE PART Oct 06, PART B [id number] JAMES CE, PATIENT (WNR) (M) B 2013 UP33 00 [place] MEDICARE MEDICARE PART Oct 06, PART A [id number] JAMES CE, PATIENT (WNR) (M) A 2013 UP33 7 [place] MEDICARE MEDICARE PART Oct 06, PART B [id number] [phone] JAMES CE, PATIENT (WNR) (M) B 2012 UP33 7 RIAN MEDICARE MEDICARE PART Oct 06, PART B [id number] JAMES CE, PATIENT (WNR) (M) B 2012 UP33 2 RIAN MEDICARE MEDICARE PART Dec 06, PART D [id number] SANDEEPLisa ATIENT PART D (M) D 2018 UP33 [phone] RIAN (WNR) MEDICARE PRESCRIPT PART Oct 06, PART D [id number] LAWRE NCE, PATIENT PART D ION D 2012 32A 0 RIAN (WNR) MEDICARE PRESCRIPT PART Oct 06, PART D [id number] LAWRE NCE, PATIENT PART D ION D 2012 UP33 0 RIAN (WNR) MEDICARE MEDICARE PART Oct 06, PART D [id number] JAMES CE, PATIENT PART D (M) D 2012 UP33 7 RIAN (WNR) Selected Encounter This section includes the information on record at [place] for the Encounter. Date/Time Encounter Type Encounter Reason Provider Source Description Aug 05, 2021 PSYTX W PT 30 MENTAL HEALTH ICD-10-CM F43.10 AARON MESSINA 02:00 PM [facility] - IND Post-traumatic stress disorder, unspecified with Provider Comments: Post-Traumatic Stress Disorder, unspecified IHE Encounter Template Text not used by [place] Assessments - Encounter Diagnoses This section includes the primary and secondary diagnoses documented for the Encounter. Date/Time Primary/Secondary Diagnosis Name Provider Source Diagnosis Aug 05, 2021 PRIMARY Post-traumatic AARON MESSINA [place] 02:59 PM stress disorder, unspecified Plan of Treatment: [...] Appointment Type Appointment Facili ty Name Aug 16, 2021 02:00 PM AMBULATORY - PS[place]CHIATRY [place] Aug 26, 2021 02:00 PM AMBULATORY - PS[place]CHIATRY [place] Sep 03, 2021 11:00 AM AMBULATORY - REHAB MEDICINE [facility] Oct 28, 2021 02:00 PM AMBULATORY - PS[place]CHIATRY [place] Dec 02, 2021 01:30 PM AMBULATORY - PS[place]CHIATRY [place] Dec 07, 2021 01:00 PM AMBULATORY - REHAB MEDICINE [place] [facility] SANDRA PANDEY [facility] Dec 09, 2021 01:00 PM AMBULATORY - PSYCHIATRY [place] Dec 14, 2021 02:00 PM AMBULATORY - MEDICINE [place] Jan 13, 2022 02:00 PM AMBULATORY - MEDICINE [place] Jan 17, 2022 01:00 PM AMBULATORY - PSYCHIATRY [place] Jan 19, 2022 01:00 PM AMBULATORY - PS[facility]CHIATRY [place] Feb 03, 2022 01:00 PM AMBULATORY - PS[place]CHIATRY [place] Social History: Smoking Status (Most current) and Tobacco Use (All prior to encounter date) This section includes the most current, and the historical, smoking and tobacco-related health factors from the DC facility where the Encounter took place.Current Smoking Status This section includes the most current smoking, or tobacco-related health factor, from the DC facility where the Encounter took place. Date/Time Current Smoking Status Comment Facility September 17, 2020 02:00 PM VA-TOBACCO FORMER USER [facility] Tobacco Use History This section includes a history of the smoking, or tobacco- related health factors, that were collected on or before the date of the Encounter. The data comes from the DC facility where the Encounter took place. Date/Time Smoking Status/Tobacco Use Comment [facility] September 17, 2020 02:00 PM VA-TOBACCO QUIT 15 YRS OR [facility] Jan 10, 2020 02:00 PM VA-TOBACCO FORMER USER [facility] Jan 10, 2020 02:00 PM VA-TOBACCO QUIT 15 YRS OR [facility] Mar 23, 2018 02:31 PM VA-TOBACCO FORMER USER [facility] Mar 23, 2018 02:31 PM VA-TOBACCO QUIT 15 YRS OR [facility] September 19, 2017 01:43 PM QUIT TOBACCO USE > 7 YEARS [place] September 15, 2016 01:21 PM QUIT TOBACCO USE > [address] [facility] quit 40 years ago May 12, 2015 10:44 AM QUIT TOBACCO USE > [address] [facility] Dec 27, 2006 10:00 AM QUIT TOBACCO USE > [address] [facility] Dec 26, 2005 08:41 AM QUIT TOBACCO USE 1-7 YEARS [place] Aug 11, 2005 08:42 AM QUIT TOBACCO [...] 01:44 PM QUIT TOBACCO USE 1-7 YEARS AGO Apr 25, 2001 03:26 PM NON-TOBACCO USER [facility] Stopped tobacco 3 years ago September 12, 2000 03:24 PM HISTORY OF SMOKING [facility] Quit cigaretts 2 years ago Encounter Notes: All associated encounter notes This section contains the clinical notes associated to the Encounter. Date/Time Encounter Note(s) Provider Source Aug 05, 2021 02:58 PM PSYCHOLOGY NOTE: AARON MESSINA LOCAL TITLE: PSYCHOLOGY NOTE STANDARD TITLE: PSYCHOLOGY NOTE DATE OF NOTE: AUG 05, 2021@14:58 ENTRY DATE: AUG 05, 2021@14:58:28 AUTHOR: AARON MESSINA EXP COSIGNER: URGENCY: STATUS: COMPLETED [facility] [facility] (VVC) Standard Documentation VVC Clinician Resources Only: E911 (Emergency Call Relay Center): [phone] National Veterans Crisis Line - ( 0-936-955-YASW) press #1. PAMELA Suicide Coordinator [phone], Ext. [phone]; Back-up Ext. [phone] Railroad Car Checker of the Day(AOD), Danny SANTIAGO [phone], Ext. [phone] Introduction: Visit is being conducted by [facility] [employer]. identified with 2 identifiers: [X] Full Name [ ] Date of [ ] VA ID Card [X] Address Emergency Plan: confirmed and/or provided the following information in case of emergency or technology failure. PATIENT PHONE - PHONE NUMBER [CELLULAR] - Is patient phone number correct, if not, enter b elow: 's phone number: RIAN HOPKINS JR [address], [place], [address] 's present location and address for appoi ntment: [address] [place] [address] Shelby's emergency contact name and phone numbe r: see chart Shelby reported that location is private and sa fe: Yes Informed Consent: Shelby informed of the risks and benefits of Te health video care. Shelby has the right to refuse video services. If refuses video visit, a mkbe-ef-vdwf visit will be scheduled. verbalized consent for this video visit: Yes provided consent for any other persons p resent for visit: Yes If yes, who and relationship to patient: Augusto cooper's was in the room with him at times. He invited her to attend the appointment at one point. Secure visit: Visit was locked for security and privacy:Yes VISIT DURATION 35 minutes; Undersigned called at the b eginning of the appointment as he did not attend the appointment. She left a VM message with her contact information and requested a return call. Shortly after, Shelby signed into the appointment. DIAGNOSES: PTSD (ICD-10-CM F43.10) VETERANS STATEMENT OF GOALS/CONCERNS: Shelby indicated that his treatment goals inclu de: 1) anger management SESSION FOCUS: Conversation focused on anger management (e.g., positive coping tools to improve his anger such as taking a timeout/break , engaging in pleasant activities, etc.). He indicated that he believes his anger management skills have improved recently (and his agreed). Un dersigned and discussed helpful and unhelpful anger management strategies. Conversation also discussed helpful communication strategies (e.g., verbal/nonverbal cues). He related that he was not interested in attending the Anger Management group. Conversation also explored the usefulness of Shelby having a positive support network. He indicated that he spends time with his sister and her fiance weekly. He also stated that he ma y go on a cruise with his , his sister, and his sister's fiance. He re ported that he and his engage in enjoyable activities together (e.g., g o out to dinner each week; spend time taking care of their chickens; spend time taking care of their great-grandson). He stated that he continues to engage in medication adherence. He reported that he experiences sleep difficulties. He was encouraged and agreed to utilize the Alpha-Stim device. Support and encouragement were provided throughout the appoi ntment. INTERVENTIONS: Psychotherapeutic Interventions: Approaches used include rapport [...] of psychosis 8. Mood was normal: Yes; 's mood was euthymic Other Observations: arrived about 10 mi nutes late to the appointment. He was neatly groomed. He was orien diane X3, alert, and cooperative. His short-term memory and long-term memory appeared intact. He did not demonstrate any abnormal motor movements , psychomotor agitation, or psychomotor retardation. Insight and judgment we re within normal limits. Attention and concentration were within normal l imits. RISK ASSESSMENT: He is considered to be at low risk of harm to s elf/others at this time. He is aware of the availability of the Veterans Crisis Line if needed. He is aware that he can contact undersigned if needed. PLAN FOR FOLLOW-UP: Next session planned for: 08/26 at 2:00pm, [facility] patient is aware that he can contact undersigned at anytime prior to the next appointment. /justine/ AARON MESSINA PSYD Clinical Psychologist Signed: 08/05/2021 15:03
--- OUTSIDE RECORDS SUMMARY | 2022-02-03 00:47 | XMS_ITS ---
:1950 Author Organization Department [facility] rs Address [address] [place] [address] Support Name Relationship Address Phone LORI HOPKINS Unavailable [address] [place] [address] [phone] [place] [address] LORI HOPKINS Unavailable [address] [facility] [place] [address] Insurance Providers: All historical and current Section [...] Number Silva JARRED PREFERRED STAND May 08 [id number] PROVIDER SHIVA 2011 [id number] RIAN MILLAN FEDERAL ORGANIZAT SELF ION (PPO) BCBS IN PREFERRED STAND May 08 [id number] [phone] JAMES CE PATIENT FEP PROVIDER SHIVA 2010 87 123 RIAN MILLAN ORGANGERMANAT INDIV ION (PPO) IDUAL BCBS OF PREFERRED STAND May 08 [id number] [phone] JAMES CE PATIENT MASS PROVIDER SHIVA 2010 87 3 RIAN MILLAN FEDERAL ORGANIZAT SELF ION (PPO) BCBS OF PREFERRED STAND May 08 [id number] [phone] JAMES CE PATIENT MASS FEP PROVIDER SHIVA 2010 87 6 RIAN MILLAN ORGANIZAT SELF ION (PPO) BCBS OF DENTAL STAND May 08, DENTAL [id number] [phone] SANDEEP, PATIENT MASS FEP INSURANCE SHIVA 2010 87 6 RIAN DENTAL [place]BS OF [place] MEDICARE FEP Dec 06 [id number] 800 SANDEEP PATIENT FEP SECONDARY STAND 2019 [phone] RIAN MILLAN (NO B SHIVA EXC) MEDSE C CAREMARK PRESCRIPT FEP Dec 06, [id number] SANEDEP PATIENT FEP ION ONLY 2014 0 87 [phone] RIAN MILLAN [place] PRESCRIPT May 08, [id number] [phone] EDUARDO ENCEstella PATIENT FEP ION 2011 0 87 1 RIAN MILLAN PRESCRIPT CAREM May 08, [id number] [phone] EDUARDO ENCEstella, PATIENT FEP BCBS ION ARK 2011 0 87 1 RIAN FEPRX PLAN CAREMARK PRESCRIPT May 08, [id number] [phone] LAWR ENCE PATIENT FEPRX PLAN ION 2011 0 87 331 RIAN MILLAN-F PRESCRIPT FEPRX May 08, [id number] [phone] LA WRENCE PATIENT EP BCBS ION /PT D 2010 0 87 1 RIAN MILLAN [facility] May 18, [id number] [phone] JAMES CE, PATIENT RE JONATAN AL 2003 32 7 RIAN CE ORGANIZ EXPRESS PRESCRIPT CONNE May 18, [id number] [phone] JAMES CE, PATIENT SCRIPTS ION CTICA 2003 [id number] 7 RIAN ([id number]) RE MEDICARE MEDICARE PART Oct 06, PART A [id number] JAMES CE, PATIENT (WNR) (M) A 2012 UP33 2 [place] MEDICARE MEDICARE PART Oct 06, PART A [id number] [id number] JAMES CE, PATIENT (WNR) (M) A 2013 UP33 00 [place] MEDICARE MEDICARE PART Oct 06, PART B [id number] [phone] JAMES CE, PATIENT (WNR) (M) B 2012 UP33 2 [place] MEDICARE MEDICARE PART Oct 06, PART B [id number] [phone] JAMES CE, PATIENT (WNR) (M) B 2013 UP33 00 [place] MEDICARE MEDICARE PART Oct 06, PART A [id number] Lisa HOPKINS (WNR) (M) A 2012 UP31 [id number] [place] MEDICARE MEDICARE PART Oct 06, PART A [id number] [id number] JAMES CE, PATIENT (WNR) (M) A 2012 UP33 7 RIAN MEDICARE MEDICARE PART Oct 06, PART B [id number] [phone] JAMES CE, PATIENT (WNR) (M) B 2012 UP33 7 RIAN MEDICARE MEDICARE PART Oct 06, PART B [id number] Lisa HOPKINS ATIENT (WNR) (M) B 2012 UP33 [phone] RIAN MEDICARE MEDICARE PART Dec 06, PART D [id number] Lisa HOPKINS ATIENT PART D (M) D 2018 UP33 [phone] RIAN (WNR) MEDICARE MEDICARE PART Oct 06, PART D [id number] [phone] JAMES CE, PATIENT PART D (M) D 2012 UP33 7 RIAN (WNR) MEDICARE PRESCRIPT PART Oct 06, PART D [id number] [phone] LAWRE NCE, PATIENT PART D ION D 2012 32A 0 RIAN (WNR) MEDICARE PRESCRIPT PART Oct 06, PART D [id number] [id number] LAWRE NCE, PATIENT PART D ION D 2012 UP33 0 RIAN (WNR) Selected Encounter This section includes the information on record at [place] for the Encounter. Date/Time Encounter Type Encounter Reason Provider Source Description Aug 18, 2021 01:39 Outpatient PRIMARY KIN,MARIBETH PM Encounter CARE/MEDICINE E [...] Name Aug 26, 2021 02:00 PM AMBULATORY - PSYCHIATRY [place] Sep 03, 2021 11:00 AM AMBULATORY - REHAB MEDICINE [facility] D Oct 28, 2021 02:00 PM AMBULATORY - PSYCHIATRY [place] Dec 02, 2021 01:30 PM AMBULATORY - PSYCHIATRY [place] Dec 07, 2021 01:00 PM AMBULATORY - [place]ICINE [place] [facility] SANDRA PANDEY [facility] Dec 09, 2021 01:00 PM AMBULATORY - PSYCHIATRY [place] Dec 14, 2021 02:00 PM AMBULATORY - MEDICINE [place] Jan 13, 2022 02:00 PM AMBULATORY - MEDICINE [place] Jan 17, 2022 01:00 PM AMBULATORY - PSYCHIATRY [place] Jan 19, 2022 01:00 PM AMBULATORY - PSYCHIATRY [place] Feb 03, 2022 01:00 PM AMBULATORY - PSYCHIATRY [place] Encounter Notes: All associated encounter notes This section contains the clinical notes associated to the Encounter. Date/Time Encounter Note(s) Provider Source Aug 18, 2021 01:39 PM PRIMARY CARE SECURE MESSAGING: MAGNUS SANDERSON CNTRL WSTRN LOCAL TITLE: PRIMARY CARE SECURE MESSAGING DAVINA [facility] STANDARD TITLE: PRIMARY CARE SECURE MESSAGING DATE OF NOTE: AUG 18, 2021@13:39 ENTRY DATE: AUG 18, 2021@14:39:21 AUTHOR: MAGNUS SANDERSON COSIGNER: URGENCY: STATUS: COMPLETED PRIMARY CARE SECURE MESSAGING Has ADDENDA * ------Original Message Sent: 08/18/2021 02:15 PM ET From: RIAN HOPKINS To: Nisa CHONG_PRIMARY CARE_SPO Subject: General:Brace for my right foot for my drooped foot Because I am tripping on my drooped foot on the right leg problem and it's no fun fall all the time . So if you could please try and help me get a brace for it .I was told it will help me to stay up and no t tripping all the time . Thanks Juan Carlos Lopez /justine/ Magnus Sanderson RN Registered Nurse Signed: 08/18/2021 14:39 Receipt Acknowledged By: 08/18/2021 16:36 /justine/ ROMULO CHONG MD PHYSICIAN 08/18/2021 ADDENDUM STATUS: COMPLETED PT referral placed /justine/ ROMULO CHONG MD PHYSICIAN Signed: 08/18/2021 16:37 Receipt Acknowledged By: * AWAITING SIGNATURE * MAGNUS SANDERSON
--- OUTSIDE RECORDS SUMMARY | 2022-02-03 00:48 | XMS_ITS | Encounter Summary ---
:1950 Author Organization Department [facility] rs Address [address] [place] [address] Support Name Relationship Address Phone LORI HOPKINS Unavailable [address] [place] [address] [place] [address] LORI HOPKINS Unavailable [address] [facility] [phone] [place] [address] Insurance Providers: All historical and current Section [...] Number Silva JARRED PREFERRED STAND May 08 [id number] PROVIDER SHIVA 2011 87 [id number] RIAN MILLAN FEDERAL ORGANIZAT SELF ION (PPO) BCBS [place] PREFERRED STAND May 08 [id number] [phone] JAMES CE PATIENT FEP PROVIDER SHIVA 2010 87 123 RIAN MILLAN ORGANGERMANAT INDIV ION (PPO) IDUAL BCBS OF PREFERRED STAND May 08 [id number] [phone] JAMES CE PATIENT MASS PROVIDER SHIVA 2010 87 3 RIAN MILLAN FEDERAL ORGANIZAT SELF ION (PPO) BCBS OF PREFERRED STAND May 08 [id number] [phone] JAMES CE PATIENT MASS FEP PROVIDER SHIVA 2010 87 6 RIAN MILLAN ORGANIZAT SELF ION (PPO) BCBS OF DENTAL STAND May 08, DENTAL [id number] [phone] SANDEEP, PATIENT MASS FEP INSURANCE SHIVA 2010 87 6 RIAN DENTAL BCBS OF [place] MEDICARE FEP Dec 06 [id number] 800 SANDEEP PATIENT FEP SECONDARY STAND 2019 87 [phone] RIAN MILLAN (NO B SHIVA EXC) MEDSE C CAREMARK PRESCRIPT FEP Dec 06, [id number] SANDEEP PATIENT FEP ION ONLY 2014 0 87 [phone] RIAN MILLAN [place] PRESCRIPT May 08, [id number] [phone] EDUARDO ENCEstella PATIENT FEP ION 2011 0 87 1 RIAN MILLAN PRESCRIPT CAREM May 08, [id number] [phone] EDUARDO ENCEstella, PATIENT FEP BCBS ION ARK 2011 0 87 1 RIAN FEPRX PLAN CAREMARK PRESCRIPT May 08, [id number] [phone] LAWR ENCE PATIENT FEPRX PLAN ION 2011 0 87 331 RIAN MILLAN-F PRESCRIPT FEPRX May 08, [id number] [phone] LA WRENCE PATIENT EP BCBS ION /PT D 2010 0 87 1 RIAN MILLAN [facility] May 18, [id number] [phone] JAMES CE[facility] 32 7 RIAN CE ORGANIZ EXPRESS PRESCRIPT CONNE May 18, [id number] [phone] JAMES CE, PATIENT SCRIPTS ION CTICA 2003 3201 7 RIAN ([id number]) RE MEDICARE MEDICARE PART Oct 06, PART A [id number] 800 Lisa HOPKINS (WNR) (M) A 2012 UP33 [phone] [place] MEDICARE MEDICARE PART Oct 06, PART B [id number] 800 Lisa HOPKINS (WNR) (M) B 2012 UP33 [phone] [place] MEDICARE MEDICARE PART Oct 06, PART A [id number] [phone] JAMES CE, PATIENT (WNR) (M) A 2013 UP33 00 [place] MEDICARE MEDICARE PART Oct 06, PART B [id number] [phone] JAMES CE, PATIENT (WNR) (M) B 2013 UP33 00 [place] MEDICARE MEDICARE PART Oct 06, PART A [id number] [id number] JAMES CE, PATIENT (WNR) (M) A 2013 UP33 2 [place] MEDICARE MEDICARE PART Oct 06, PART A [id number] [phone] JAMES CE, PATIENT (WNR) (M) A 2012 UP33 7 RIAN MEDICARE MEDICARE PART Oct 06, PART B [id number] [id number] JAMES CE, PATIENT (WNR) (M) B 2012 UP33 7 RIAN MEDICARE MEDICARE PART Oct 06, PART B [id number] [id number] JAMES CE, PATIENT (WNR) (M) B 2012 UP33 2 RIAN MEDICARE MEDICARE PART Dec 06, PART D [id number] Lisa HOPKINS ATIENT PART D (M) D 2018 UP33 [phone] RIAN (WNR) MEDICARE PRESCRIPT PART Oct 06, PART D [id number] LAWRE NCE, PATIENT PART D ION D 2012 32A 0 RIAN (WNR) MEDICARE PRESCRIPT PART Oct 06, PART D [id number] [phone] LAWRE NCE, PATIENT PART D ION D 2012 UP33 0 RIAN (WNR) MEDICARE MEDICARE PART Oct 06, PART D [id number] JAMES CE, PATIENT PART D (M) D 2012 UP33 7 RIAN (WNR) Selected Encounter This section includes the information on record at [place] for the Encounter. Date/Time Encounter Type Encounter Reason Provider Source Description Aug 19, 2021 07:31 Outpatient PRIMARY MARIBETH SANDERSON AM Encounter CARE/MEDICINE E DAVINA Estella Encounter Template Text not used by [place] Plan of Treatment: Future Appointments (+ 6 [...] 26, 2021 02:00 PM AMBULATORY - PSYCHIATRY [place] Sep 03, 2021 11:00 AM AMBULATORY - REHAB MEDICINE [facility] D Oct 28, 2021 02:00 PM AMBULATORY - PS[place]CHIATRY [place] Dec 02, 2021 01:30 PM AMBULATORY - PS[place]CHIATRY [place] Dec 07, 2021 01:00 PM AMBULATORY - REHAB MEDICINE [place] [facility] SANDRA PANDEY [facility] Dec 09, 2021 01:00 PM AMBULATORY - PSYCHIATRY [place] Dec 14, 2021 02:00 PM AMBULATORY - MEDICINE [place] Jan 13, 2022 02:00 PM AMBULATORY - MEDICINE [place] Jan 17, 2022 01:00 PM AMBULATORY - PSYCHIATRY [place] Jan 19, 2022 01:00 PM AMBULATORY - PSYCHIATRY [place] Feb 03, 2022 01:00 PM AMBULATORY - PS[facility]CHIATRY [place] Encounter Notes: All associated encounter notes This section contains the clinical notes associated to the Encounter. Date/Time Encounter Note(s) Provider Source Aug 19, 2021 07:31 AM PRIMARY CARE SECURE MESSAGING: MAGNUS SANDERSON CNTRL WSTRN LOCAL TITLE: PRIMARY CARE SECURE MESSAGING [facility] STANDARD TITLE: PRIMARY CARE SECURE MESSAGING DATE OF NOTE: AUG 19, 2021@07:31 ENTRY DATE: AUG 19, 2021@08:31:08 AUTHOR: MAGNUS SANDERSON COSIGNER: URGENCY: STATUS: COMPLETED ------Original Message Sent: 08/19/2021 08:31 AM ET From: MAGNUS SANDESRON To: RIAN HOPKINS Subject: General:General Inquiry Dear Dr. Priyanka Rowe has entered a referral for PT for you. The PT department will contact you directly to schedule. Thank you, Nurse Magnus Banuelos, BSN, RN SPOPC PACT 5 Registered Nurse /justine/ Magnus Sanderson RN Registered Nurse Signed: 08/19/2021 08:31
--- OUTSIDE RECORDS SUMMARY | 2022-02-03 00:48 | XMS_ITS | Encounter Summary ---
:1950 Author Organization [facility] Address [address] [place] [address] Support Name Relationship Address Phone LORI HOPKINS Unavailable [address] [facility] [phone] [address] [place] [address] LORI HOPKINS Unavailable [address] [facility] [phone] [address] [place] [address] Insurance Providers: All historical and current Section [...] Number Silva JARRED PREFERRED STAND May 08 [id number] PROVIDER SHIVA 2010 [id number] [phone] RIAN MILLAN FEDERAL ORGANIZAT SELF ION (PPO) [place]BS [place] PREFERRED STAND May 08 [id number] [phone] JAMES CE PATIENT FEP PROVIDER SHIVA [phone] RIAN MILLAN ORGANGERMANAT INDIV ION (PPO) IDUAL BCBS OF PREFERRED STAND May 08 [id number] [phone] JAMES CE PATIENT MASS PROVIDER SHIVA 2010 87 3 RIAN MILLAN FEDERAL ORGANIZAT SELF ION (PPO) BCBS OF PREFERRED STAND May 08 [id number] [phone] JAMES CE PATIENT MASS FEP PROVIDER SHIVA 2010 87 6 RIAN MILLAN ORGANIZAT SELF ION (PPO) BCBS OF DENTAL STAND May 08, DENTAL [id number] [phone] SANDEEP, PATIENT MASS FEP INSURANCE SHIVA 2010 87 6 RIAN DENTAL BCBS OF [place] MEDICARE FEP Dec 06 [id number] SANDEEP PATIENT FEP SECONDARY STAND 2019 [phone] RIAN MILLAN (NO B SHIVA EXC) MEDSE C CAREMARK PRESCRIPT FEP Dec 06, [id number] SANDEEP PATIENT FEP ION ONLY 2013 0 87 [phone] RIAN MILLAN PRESCRIPT May 08, [id number] [phone] EDUARDO MATTHEW PATIENT FEP ION 2011 0 87 1 RIAN MILLAN PRESCRIPT CAREM May 08, [id number] [phone] EDUARDO MATTHEW, PATIENT FEP BCBS ION ARK 2011 0 87 1 RIAN FEPRX PLAN CAREMARK PRESCRIPT May 08, [id number] [phone] ENCEstella PATIENT FEPRX PLAN ION 2010 0 [phone] RIAN MILLAN-F PRESCRIPT FEPRX May 08, [id number] [phone] LA JENENCE PATIENT EP BCBS ION /PT D 2010 0 87 1 RIAN MILLAN [facility] May 18, [id number] [phone] JAMES CE, PATIENT RE JONATAN AL 2003 32 7 RIAN CE ORGANIZ EXPRESS PRESCRIPT CONNE May 18, [id number] [phone] JAMES CE, PATIENT SCRIPTS ION CTICA 2002 [id number] RIAN ([id number]) RE MEDICARE MEDICARE PART Oct 06, PART A [id number] Lisa HOPKINS (WNR) (M) A 2012 UP33 [phone] RIAN MEDICARE MEDICARE PART Oct 06, PART B [id number] Lisa HOPKINS (WNR) (M) B 2012 UP33 [phone] [place] MEDICARE MEDICARE PART Oct 06, PART A [id number] [phone] JAMES CE, PATIENT (WNR) (M) A 2013 UP33 00 [place] MEDICARE MEDICARE PART Oct 06, PART B [id number] JAMES CE, PATIENT (WNR) (M) B 2013 UP33 00 [place] MEDICARE MEDICARE PART Oct 06, PART A [id number] JAMES CE, PATIENT (WNR) (M) A 2012 UP33 2 RIAN MEDICARE MEDICARE PART Oct 06, PART B [id number] JAMES CE, PATIENT (WNR) (M) B 2013 UP33 7 [place] MEDICARE MEDICARE PART Oct 06, PART A [id number] [phone] JAMES CE, PATIENT (WNR) (M) A 2012 UP33 7 RIAN MEDICARE MEDICARE PART Oct 06, PART B [id number] JAMES CE, PATIENT (WNR) (M) B 2012 UP33 2 RIAN MEDICARE MEDICARE PART Dec 06, PART D [id number] SANDEEPLisa ATIENT PART D (M) D 2018 UP33 [id number] RIAN (WNR) MEDICARE PRESCRIPT PART Oct 06, PART D [id number] LAWRE NCE, PATIENT PART D ION D 2012 [id number] 0 RIAN (WNR) MEDICARE PRESCRIPT PART Oct 06, PART D [id number] LAWRE NCE, PATIENT PART D ION D 2012 UP33 0 RIAN (WNR) MEDICARE MEDICARE PART Oct 06, PART D [id number] JAMES CE, PATIENT PART D (M) D 2012 UP33 7 RIAN (WNR) Selected Encounter This section includes the information on record at [place] for the Encounter. Date/Time Encounter Type Encounter Reason Provider Source Description Aug 26, 2021 PSYTX W PT 30 MENTAL HEALTH ICD-10-CM F43.10 AARON MESSINA 02:00 PM [facility] - IND Post-traumatic stress disorder, unspecified with Provider Comments: Posttraumatic stress disorder ([facility] [id number]) [facility] Encounter Template Text not used by [place] Assessments - Encounter Diagnoses This section includes the primary and secondary diagnoses documented for the Encounter. Date/Time Primary/Secondary Diagnosis Name Provider Source Diagnosis Aug 26, 2021 PRIMARY Post-traumatic AARON MESSINA [facility] 02:46 PM stress disorder, unspecified Plan of Treatment: [...] Date/Time Appointment Type Appointment Facili ty Name Sep 03, 2021 11:00 AM AMBULATORY - REHAB MEDICINE [facility] D Oct 28, 2021 02:00 PM AMBULATORY - PSYCHIATRY [facility] Dec 02, 2021 01:30 PM AMBULATORY - PSYCHIATRY [facility] Dec 07, 2021 01:00 PM AMBULATORY - [place]ICINE [place] [facility] Cosmo [facility] Dec 09, 2021 01:00 PM AMBULATORY - PSYCHIATRY [facility] Dec 14, 2021 02:00 PM AMBULATORY - MEDICINE [facility] Jan 13, 2022 02:00 PM AMBULATORY - MEDICINE [facility] Jan 17, 2022 01:00 PM AMBULATORY - PSYCHIATRY [facility] Jan 19, 2022 01:00 PM AMBULATORY - PSYCHIATRY [facility] Feb 03, 2022 01:00 PM AMBULATORY - PSYCHIATRY [facility] Social History: Smoking Status (Most current) and Tobacco Use (All prior to encounter date) This section includes the most current, and the historical, smoking and tobacco-related health factors from the [place] facility where the Encounter took place.Current Smoking Status This section includes the most current smoking, or tobacco-related health factor, from the [place] facility where the Encounter took place. Date/Time Current Smoking Status Comment Facility September 17, 2020 02:00 PM VA-TOBACCO FORMER USER [facility] Tobacco Use History This section includes a history of the smoking, or tobacco- related health factors, that were collected on or before the date of the Encounter. The data comes from the [place] facility where the Encounter took place. Date/Time Smoking Status/Tobacco Use Comment [facility] September 17, 2020 02:00 PM VA-TOBACCO QUIT 15 YRS OR [facility] Jan 10, 2020 02:00 PM VA-TOBACCO FORMER USER [facility] Jan 10, 2020 02:00 PM VA-TOBACCO QUIT 15 YRS OR [facility] Mar 23, 2018 02:31 PM VA-TOBACCO FORMER USER [facility] Mar 23, 2018 02:31 PM VA-TOBACCO QUIT 15 YRS OR [facility] September 19, 2017 01:43 PM QUIT TOBACCO USE > 7 YEARS [facility] September 15, 2016 01:21 PM QUIT TOBACCO USE > 7 YEARS [facility]IALE[facility] AGO quit 40 years ago May 12, 2015 10:44 AM QUIT TOBACCO USE > 7 YEARS [facility] Dec 27, 2006 10:00 AM QUIT TOBACCO USE > 7 YEARS [facility] Dec 26, 2005 08:41 AM QUIT TOBACCO USE 1-7 YEARS [facility] Aug 11, 2005 08:42 AM QUIT TOBACCO [...] Encounter. Date/Time Encounter Note(s) Provider Source Aug 26, 2021 02:45 PM PSYCHOLOGY NOTE: AARON MESSINA LOCAL TITLE: PSYCHOLOGY NOTE STANDARD TITLE: PSYCHOLOGY NOTE DATE OF NOTE: AUG 26, 2021@14:45 ENTRY DATE: AUG 26, 2021@14:45:09 AUTHOR: AARON MESSINA EXP COSIGNER: URGENCY: STATUS: COMPLETED [facility] ([facility]) Standard Documentation [facility] Clinician Resources Only: E911 (Emergency Call Relay Center): [phone] National [employer] Crisis Line - ( 4-145-179-DUOY) press #1. PAMELA Suicide Coordinator [phone], Ext. [phone]; Back-up Ext. [phone] Unified Communications Engineer of the Day(AOD), Danny SANTIAGO [phone], Ext. [phone] Introduction: Visit is being conducted by [place] [facility]. [place] identified with 2 identifiers: [X] Full Name [ ] Date of [ ] VA ID Card [X] Address Emergency Plan: [place] confirmed and/or provided the following information in case of emergency or technology failure. PATIENT PHONE - PHONE NUMBER [CELLULAR] - Is patient phone number correct, if not, enter b elow: Sal[place]bury's phone number: RIAN HOPKINS JR [address], [place], [address] 's present location and address for appoi ntment: [address] [place] [address] 's emergency contact name and phone numbe r: see chart reported that location is private and sa fe: Yes Informed Consent: informed of the risks and benefits of Te [facility] video care. has the right to refuse video services. If refuses video visit, a ulnc-wa-xluo visit will be scheduled. verbalized consent for this video visit: Yes [place] provided consent for any other persons p resent for visit: Yes If yes, who and relationship to patient: Augusto cooper's great grandson and his were home with him today. Secure visit: Visit was locked for security and privacy:Yes VISIT DURATION 30 minutes; Undersigned called [place] as he di d not attend the [facility] appointment. Salisbury apologized and indicated th at he forgot. He then signed into the appointment. DIAGNOSES: PTSD (ICD-10-CM F43.10) [facility] STATEMENT OF GOALS/CONCERNS: [place] indicated that his treatment goals inclu de: 1) anger management SESSION FOCUS: Conversation focused on anger management (e.g., recognizing anger cues; hot/cool thoughts; taking a timeout/break; walki ng away from an upsetting situation). He related that his anger management skills have improved, although there were times in which he would get angry and yell. He and undersigned discussed identifying his anger cues as well as helpful coping strategies to manage his anger. He also indicate d that he and his plan to go on a cruise in the next few months. He sta diane that he invited his sister and her fiance, but that he was still alon ting to hear from her if she was interested in attending. He reported that th e four of them also plan to go camping together next month. He was encourage d and agreed to continue utilizing the Alpha-Stim device. INTERVENTIONS: Psychotherapeutic Interventions: Approaches used include rapport [...] Yes; 's mood was euthymic Other Observations: Salisbury arrived about 15 mi nutes late to the appointment. He [...] PLAN FOR FOLLOW-UP: Next session planned for: 09/23 at 2:00pm, [facility] patient is aware that he can contact undersigned at anytime prior to the next appointment. /justine/ AARON MESSINA PSYD Clinical Psychologist Signed: 08/26/2021 14:49
--- OUTSIDE RECORDS SUMMARY | 2022-02-03 00:49 | XMS_ITS | Encounter Summary ---
:1950 Author Organization [facility] Address [address] [place] [address] Support Name Relationship Address Phone LORI HOPKINS Unavailable [address] [facility] [place] [address] LORI HOPKINS Unavailable [address] [facility] [place] [address] Insurance Providers: All historical and current Section [...] Number Silva ANTHEM PREFERRED STAND May 08 [id number] PROVIDER SHIVA 2010 [id number] RIAN MILLAN FEDERAL ORGANIZAT SELF ION (PPO) [place]BS [place] PREFERRED STAND May 08 [id number] [phone] JAMES CE PATIENT FEP PROVIDER SHIVA 2010 87 123 RIAN MILLAN ORGANGERMANAT INDIV ION (PPO) IDUAL BCBS OF PREFERRED STAND May 08 [id number] [phone] JAMES CE PATIENT MASS PROVIDER SHIVA 2010 87 3 RIAN MILLAN FEDERAL ORGANIZAT SELF ION (PPO) BCBS OF PREFERRED STAND May 08 [id number] [phone] JAMES CE PATIENT MASS FEP PROVIDER SHIVA 2010 87 6 RIAN MILLAN ORGANIZAT SELF ION (PPO) BCBS OF DENTAL STAND May 08, DENTAL [id number] [phone] ASNDEEP, PATIENT MASS FEP INSURANCE SHIVA 2010 87 6 RIAN DENT[place] MED[place] FEP Dec 06 [id number] 800 SANDEEP PATIENT FEP SECONDARY STAND 2019 [id number] [phone] RIAN MILLAN (NO B SHIVA EXC) MEDSE C CARELIONEL PRESCRIPT FEP Dec 06, [id number] SANDEEP PATIENT FEP ION ONLY 2013 0 87 [phone] RIAN MILLAN CARELIONEL PRESCRIPT May 08, [id number] [phone] EDUARDO MATTHEW PATIENT FEP ION 2011 0 87 1 RIAN MILLAN PRESCRIPT CAREM May 08, [id number] [phone] EDUARDO MATTHEW, PATIENT FEP BCBS ION ARK 2011 0 87 1 RIAN FEPRX PLAN CAREMARK PRESCRIPT May 08, [id number] [phone] EDUARDO MATTHEW PATIENT FEPRX PLAN ION 2010 0 [id number] 331 RIAN MILLAN-F PRESCRIPT FEPRX May 08, [id number] [phone] LA KVNG PATIENT EP BCBS ION /PT D 2010 0 87 1 RIAN MILLAN [facility] May 18, [id number] [phone] JAMES CE, PATIENT RE JONATAN AL 2002 32 7 RIAN CE ORGANIZ EXPRESS PRESCRIPT CONNE May 18, [id number] [phone] JAMES CE, PATIENT SCRIPTS ION CTICA 2002 [id number] 7 RIAN ([id number]) RE MEDICARE MEDICARE PART Oct 06, PART A [id number] Lisa HOPKINS (WNR) (M) A 2012 UP33 [phone] JOSEPH MEDICARE MEDICARE PART Oct 06, PART B [id number] 800 Lisa HOPKINS (WNR) (M) B 2012 UP33 [phone] [place] MEDICARE MEDICARE PART Oct 06, PART A [id number] [phone] JAMES CE, PATIENT (WNR) (M) A 2013 UP33 00 [place] MEDICARE MEDICARE PART Oct 06, PART B [id number] [phone] JAMES CE, PATIENT (WNR) (M) B 2013 UP33 00 [place] MEDICARE MEDICARE PART Oct 06, PART A [id number] JAMES CE, PATIENT (WNR) (M) A 2013 UP33 2 [place] MEDICARE MEDICARE PART Oct 06, PART A [id number] [phone] JAMES CE, PATIENT (WNR) (M) A 2013 UP33 7 [place] MEDICARE MEDICARE PART Oct 06, PART B [id number] [phone] JAMES CE, PATIENT (WNR) (M) B 2012 UP33 7 RIAN MEDICARE MEDICARE PART Oct 06, PART B [id number] [id number] JAMES CE, PATIENT (WNR) (M) B 2012 UP33 2 RIAN MEDICARE MEDICARE PART Dec 06, PART D [id number] 800 SANDEEPLisa ATIENT PART D (M) D 2018 UP33 [phone] RIAN (WNR) MEDICARE PRESCRIPT PART Oct 06, PART D [phone] LAWRE NCE, PATIENT PART D ION D 2012 32A 0 RIAN (WNR) MEDICARE PRESCRIPT PART Oct 06, PART D [id number] LAWRE NCE, PATIENT PART D ION D 2012 UP33 0 RIAN (WNR) MEDICARE MEDICARE PART Oct 06, PART D [id number] JAMES CE, PATIENT PART D (M) D 2012 UP33 7 RIAN (WNR) Selected Encounter This section includes the information on record at [place] for the Encounter. Date/Time Encounter Type Encounter Reason Provider Source Description Sep 03, 2021 PT EVAL LOW PHYSICAL THERAPY ICD-10-CM [place] [facility] 11:00 AM COMPLEX 20 MIN M54.16 NATALIA JEWELL Radiculopathy, lumbar region with Provider Comments: Radiculopathy, Lumbar Region IHE Encounter Template Text not used by [place] Assessments - Encounter Diagnoses This section includes the primary and secondary diagnoses documented for the Encounter. Date/Time Primary/Secondary Diagnosis Name Provider Source Diagnosis Sep 03, 2021 PRIMARY Radiculopathy, SUSIE ROU[facility] Shanell 11:24 AM lumbar region ROSALIE JEWELL Plan of Treatment: Future Appointments (+ 6 months) and Future Tests (+/- 45 days) The Plan of Treatment section includes future care activities for the patient from all [place] treatmentfacilities. This section includes future appointments and future orders which are active, pending orscheduled.Future Appointments This section includes appointments that were scheduled to occur 6 months from the date of the Encounter, up to a maximum of 20 appointments. The data comes from all [place] treatment facilities. Appointment Date/Time Appointment Type Appointment Facili ty Name Oct 28, 2021 02:00 PM AMBULATORY - PSYCHIATRY [facility] Dec 02, 2021 01:30 PM AMBULATORY - PSYCHIATRY [facility] Dec 07, 2021 01:00 PM [place] [facility] Dec 09, 2021 01:00 PM AMBULATORY - PSYCHIATRY [facility] Dec 14, 2021 02:00 PM AMBULATORY - MEDICINE [facility] Jan 13, 2022 02:00 PM AMBULATORY - MEDICINE [facility] Jan 17, 2022 01:00 PM AMBULATORY - PSYCHIATRY [facility] Jan 19, 2022 01:00 PM AMBULATORY - PSYCHIATRY [facility] Feb 03, 2022 01:00 PM AMBULATORY - PSYCHIATRY [facility] Feb 28, 2022 11:00 AM AMBULATORY - PSYCHIATRY [facility] Social History: Smoking Status (Most current) and [...] the Encounter. The data comes from the [place] facility where the Encounter took place. Date/Time Smoking Status/Tobacco Use Comment [facility] September 17, 2020 02:00 PM VA-TOBACCO QUIT 15 YRS OR [facility] Jan 10, 2020 02:00 PM VA-TOBACCO FORMER USER [facility] Jan 10, 2020 02:00 PM VA-TOBACCO QUIT 15 YRS OR [facility] Mar 23, 2018 02:31 PM VA-TOBACCO FORMER USER [facility] Mar 23, 2018 02:31 PM VA-TOBACCO QUIT 15 YRS OR [facility] September 19, 2017 01:43 PM QUIT TOBACCO USE > 7 YEARS [facility] September 15, 2016 01:21 PM QUIT TOBACCO USE > 7 YEARS [place] AGO quit 40 years ago May 12, 2015 10:44 AM QUIT TOBACCO USE > 7 YEARS [facility] Dec 27, 2006 10:00 AM QUIT TOBACCO USE > 7 YEARS [facility] Dec 26, 2005 08:41 AM QUIT TOBACCO USE 1-7 YEARS [facility] Aug 11, 2005 08:42 AM QUIT TOBACCO USE IN PAST [facility] Dec 09, 2004 08:20 AM QUIT TOBACCO USE IN PAST S [id number] 02, 2004 08:07 AM QUIT TOBACCO USE [...] 2000 03:24 PM HISTORY OF SMOKING WESTLEY IEKAREN Quit cigaretts 2 years ago Encounter Notes: All associated encounter notes This section contains the clinical notes associated to the Encounter. Date/Time Encounter Note(s) Provider Source Sep 03, 2021 11:21 AM PHYSICAL THERAPY CONSULT: [facility] TITLE: PHYSICAL THERAPY CONSULT [facility] TITLE: PHYSICAL THERAPY CONSULT DATE OF NOTE: SEP 03, 2021@11:21 ENTRY DATE: SEP 03, 2021@11:22:03 AUTHOR: PEDRO ROUSE EXP COSIGNER: URGENCY: STATUS: COMPLETED How does the patient/client best learn? Pictures , Reading, Listening, Demonstration Does the patient/client have any cultural and re ligious beliefs, emotional barriers, physical or cogniti ve limitations, and communication barriers which may impact his/her ability to learn? No Desire and motivation to learn? Good PROSTHETIC CHECKOUT- Physical Therapy Referring physician: YUDITH Dx: Radiculopathy, Lumbar Region (ICD-10-CM M54. 16) (Primary) treatment time: 15 min Pt was issued/ordered: Right custom AFO for drop foot. Exact specificat ions to be determined by the treating pulper. Meli nava signed vendor forms during today's session, faxed to our [facility] prosthetic dept. Right ankle DF strength: 2+/5 Left ankle DF strength: 4+/5 (x) Pt is I and safe with [...] Education Education provided on the following topics: Brac e use Education provided to: P Response to Education: VU Nguyen Patient P Family F Significant Other SO Verbalizes Understanding VU Returns Demonstration RD Performs Independently PI Lacks Comprehension LC Refused Education RE Not Applicable NA The practitioner's co-signature on this note sig nifies agreement with the plan of care and clinical diagnosis code. /justine/ PEDRO ROUSE DPT Physical Therapist Signed: 09/03/2021 11:25
--- OUTSIDE RECORDS SUMMARY | 2022-02-03 00:49 | XMS_ITS ---
:1950 Author Organization Department [facility] rs Address [address] [place] [address] Support Name Relationship Address Phone LORI HOPKINS Unavailable [address] [place] [address] [place] [address] LORI HOPKINS Unavailable [address] [facility] [place] [address] Insurance Providers: All historical and current Section [...] Number Silva JARRED PREFERRED STAND May 08 [id number] PROVIDER SHIVA 2011 87 [id number] RIAN MILLAN FEDERAL ORGANIZAT SELF ION (PPO) BCBS [place] PREFERRED STAND May 08 [id number] [phone] JAMES CE PATIENT FEP PROVIDER SHIVA 2010 87 123 RIAN MILLAN ORGANGERMANAT INDIV ION (PPO) IDUAL BCBS OF PREFERRED STAND May 08 [id number] [phone] JAMES CE PATIENT MASS PROVIDER SHIVA 2010 87 3 RIAN MILLAN FEDERAL ORGANIZAT SELF ION (PPO) BCBS OF PREFERRED STAND May 08 [id number] [phone] JAMES CE PATIENT MASS FEP PROVIDER SHIVA 2010 87 6 RIAN MILLAN ORGANIZAT SELF ION (PPO) BCBS OF DENTAL STAND May 08, DENTAL [id number] [phone] SANDEEP, PATIENT MASS FEP INSURANCE SHIVA 2010 87 6 RIAN DENTAL BCBS OF [place] MEDICARE FEP Dec 06 [id number] 800 SANDEEP PATIENT FEP SECONDARY STAND 2019 87 [phone] RIAN MILLAN (NO B SHIVA EXC) MEDSE C CAREMARK PRESCRIPT FEP Dec 06, [id number] SANDEEP PATIENT FEP ION ONLY 2014 0 87 [phone] RIAN MILLAN CARELIONEL PRESCRIPT May 08, [id number] [phone] EDUARDO ENCEstella PATIENT FEP ION 2011 0 87 1 RIAN MILLAN PRESCRIPT CAREM May 08, [id number] [phone] LAWR ENCEstella, PATIENT FEP BCBS ION ARK 2011 0 87 1 RIAN FEPRX PLAN CAREMARK PRESCRIPT May 08, [id number] [phone] LAWR ENCE PATIENT FEPRX PLAN ION 2011 0 87 331 RIAN MILLAN-F PRESCRIPT FEPRX May 08, [id number] [phone] LA WRENCE PATIENT EP BCBS ION /PT D 2010 0 87 1 RIAN MILLAN [facility] May 18, [id number] [phone] JAMES CE, PATIENT RE [facility] [place] 2003 32 7 RIAN CE ORGANIZ EXPRESS PRESCRIPT CONNE May 18, [id number] [phone] JAMES CE, PATIENT SCRIPTS ION CTICA 2003 [id number] 7 RIAN ([id number]) CARLOS MEDICARE MEDICARE PART Oct 06, PART B [id number] JAMES CE, PATIENT (WNR) (M) B 2012 UP33 2 RIAN MEDICARE MEDICARE PART Oct 06, PART A [id number] 800 Lisa HOPKINS (WNR) (M) A 2012 UP33 [id number] RIAN MEDICARE MEDICARE PART Oct 06, PART A [id number] [phone] JAMES CE, PATIENT (WNR) (M) A 2013 UP33 7 RIAN MEDICARE MEDICARE PART Oct 06, PART B [id number] JAMES CE, PATIENT (WNR) (M) B 2013 UP33 7 RIAN MEDICARE MEDICARE PART Oct 06, PART B [id number] 800 Lisa HOPKINS (WNR) (M) B 2013 UP33 [id number] RIAN MEDICARE MEDICARE PART Oct 06, PART A [id number] JAMES CE, PATIENT (WNR) (M) A 2013 UP33 00 RIAN MEDICARE MEDICARE PART Oct 06, PART B [id number] JAMES CE, PATIENT (WNR) (M) B 2012 UP33 00 RIAN MEDICARE MEDICARE PART Oct 06, PART A [id number] JAMES CE, PATIENT (WNR) (M) A 2012 UP33 2 RIAN MEDICARE MEDICARE PART Dec 06, PART D [id number] Lisa HOPKINS ATIENT PART D (M) D 2018 UP33 [id number] RIAN (WNR) MEDICARE MEDICARE PART Oct 06, PART D [id number] JAMES CE, PATIENT PART D (M) D 2012 UP33 7 RIAN (WNR) MEDICARE PRESCRIPT PART Oct 06, PART D [id number] LAWRE NCE, PATIENT PART D ION D 2012 32A 0 RIAN (WNR) MEDICARE PRESCRIPT PART Oct 06, PART D [id number] LAWRE NCE, PATIENT PART D ION D 2012 UP33 0 RIAN (WNR) Selected Encounter This section includes the information on record at [place] for the Encounter. Date/Time Encounter Type Encounter Description Reason Provider Source September 07, 2021 07:43 Outpatient Encounter PRIMARY CARE/MEDICINE AM IHE Encounter [...] 28, 2021 02:00 PM AMBULATORY [place] Dec 02, 2021 01:30 PM AM[place]ORY [place] Dec 07, 2021 01:00 PM AM[place]ULATORY [place] [facility] Dec 09, 2021 01:00 PM AMBULATORY - [place]IATRY [place] Dec 14, 2021 02:00 PM AMBULATORY - [place]IC[place] Jan 13, 2022 02:00 PM AMBULATORY - [place]IC[place] Jan 17, 2022 01:00 PM AMBULATORY [place] Jan 19, 2022 01:00 PM [facility] [place] Feb 03, 2022 01:00 PM AMBULATORY - [place] Feb 28, 2022 11:00 AM AMBULATORY - [place]IATRY [place] Encounter Notes: All associated encounter notes This section contains the clinical notes associated to the Encounter. Date/Time Encounter Note(s) Provider Source September 07, 2021 07:43 AM PRIMARY CARE SECURE MESSAGING: JOVAN HOOVER [place] [facility] LOCAL TITLE: PRIMARY CARE SECURE MESSAGING [place] [facility] STANDARD TITLE: PRIMARY CARE SECURE MESSAGING DATE OF NOTE: SEPTEMBER 07, 2021@07:43 ENTRY DATE: SEPTEMBER 07, 2021@08:43:16 AUTHOR: JOVAN HOOVER EXP COSIGNER: URGENCY: STATUS: COMPLETED PRIMARY CARE SECURE MESSAGING Has ADDENDA * ------Original Message Sent: 09/06/2021 05:10 PM ET From: RIAN HOPKINS To: ARLETTE,O_PRIMARY CARE_SPOPC Subject: Medication:Headache's Hi Doctor this is Juan Carlos Hopkins 1462 the meds you give me for my headache are not doing anything for the pain I don't want to be a pain in the ass but I need something more then you prescribed for me . I remember telling you I really never get headache but the headaches I ge t are so bad lately . I hope you can help me the headaches thanks Juan Carlos . /justine/ JOVAN HOOVER AMSA Signed: 09/07/2021 08:43 Receipt Acknowledged By: 09/07/2021 16:12 /justine/ GAYLA SINHAN-shirt bander Nurse for CHITRA ZAMORA 09/07/2021 ADDENDUM STATUS: COMPLETED Record reviewed Per last tele PCP note #headache - per HPI ?tension/migraine h/a -trial of excedrine migraine daily prn (instruct to limit use to max 2-3x/week) -reviewed stress management , discussed improtance of adequate sleep, hydration, CPAP use -consider referral to accupuncture -ROM neck exercise, massage -pt instructed to call us in case of symptoms wo rsening or failing to improve RTC Placed. Adding AMSA -pls schedule per RTC. VVC pref. F2F ok if decli papo Adding PCP -FYI /justine/ GAYLA SINHAN-shirt bander Nurse Signed: 09/07/2021 16:12 Receipt Acknowledged By: * AWAITING SIGNATURE * JOVAN HOOVER 09/07/2021 20:43 /es/ ROMULO CHONG MD PHYSICIAN 09/08/2021 ADDENDUM STATUS: COMPLETED Bicycle Repairman LVM for to call back to make appt with provider. /justine/ JOVAN VANEGAS Signed: 09/08/2021 10:19 09/09/2021 ADDENDUM STATUS: COMPLETED Bicycle Repairman LVM for to call back to make appo intment with provider. /virgilio VANEGAS Signed: 09/09/2021 09:18
--- OUTSIDE RECORDS SUMMARY | 2022-02-03 00:49 | XMS_ITS | Encounter Summary ---
:1950 Author Organization Department [facility] rs Address [address] [place] [address] Support Name Relationship Address Phone LORI HOPKINS Unavailable [address] [place] [address] [place] [address] LORI HOPKINS Unavailable [address] [facility] [phone] [place] [address] Insurance Providers: All historical and current Section [...] Number Silva JARRED PREFERRED STAND May 08 [id number] PROVIDER SHIVA 2011 [id number] [phone] RIAN MILLAN FEDERAL ORGANIZAT SELF ION (PPO) BCBS [place] PREFERRED STAND May 08 [id number] [phone] JAMES CE PATIENT FEP PROVIDER SHIVA 2010 87 123 RIAN MILLAN ORGANGERMANAT INDIV ION (PPO) IDUAL BCBS OF PREFERRED STAND May 08 [id number] [phone] JAMES CE PATIENT MASS PROVIDER SHIVA 2010 87 3 RIAN MILLAN FEDERAL ORGANIZAT SELF ION (PPO) BCBS OF PREFERRED STAND May 08 [id number] [phone] JAMES CE PATIENT MASS FEP PROVIDER SHIVA 2010 87 6 RIAN MILLAN ORGANIZAT SELF ION (PPO) BCBS OF DENTAL STAND May 08, DENTAL [id number] [phone] SANDEEP, PATIENT MASS FEP INSURANCE SHIVA 2010 87 6 RIAN DENTAL BCBS OF [place] MEDICARE FEP Dec 06 [id number] 800 SANDEEP PATIENT FEP SECONDARY STAND 2019 87 [phone] RIAN MILLAN (NO B SHIVA EXC) MEDSE C CAREMARK PRESCRIPT FEP Dec 06, [id number] SANDEEP PATIENT FEP ION ONLY 2014 0 87 [phone] RIAN MILLAN CARELIONEL PRESCRIPT May 08, [id number] [phone] EDUARDO MATTHEW PATIENT FEP ION 2011 0 87 1 RIAN MILLAN PRESCRIPT CAREM May 08, [id number] [phone] EDUARDO ENCEstella, PATIENT FEP BCBS ION ARK 2011 0 87 1 RIAN FEPRX PLAN CAREMARK PRESCRIPT May 08, [id number] [phone] LAWR ENCE PATIENT FEPRX PLAN ION 2011 0 87 331 RIAN MILLAN-F PRESCRIPT FEPRX May 08, [id number] [phone] LA WRENCE PATIENT EP BCBS ION /PT D 2010 0 87 1 RIAN MILLAN [facility] May 18, [id number] [phone] JAMES CE, [facility] 32 7 RIAN CE ORGANIZ EXPRESS PRESCRIPT CONNE May 18, [id number] [phone] JAMES CE, PATIENT SCRIPTS ION CTICA 2003 [id number] 7 RIAN ([id number]) RE MEDICARE MEDICARE PART Oct 06, PART B [id number] JAMES CE, PATIENT (WNR) (M) B 2012 UP33 2 [place] MEDICARE MEDICARE PART Oct 06, PART A [id number] 800 Lisa HOPKINS (WNR) (M) A 2013 UP33 [id number] [place] MEDICARE MEDICARE PART Oct 06, PART A [id number] JAMES CE, PATIENT (WNR) (M) A 2013 UP33 00 [place] MEDICARE MEDICARE PART Oct 06, PART B [id number] JAMES CE, PATIENT (WNR) (M) B 2013 UP33 00 [place] MEDICARE MEDICARE PART Oct 06, PART A [id number] JAMES CE, PATIENT (WNR) (M) A 2013 UP33 7 [place] MEDICARE MEDICARE PART Oct 06, PART B [id number] [phone] JAMES CE, PATIENT (WNR) (M) B 2012 UP33 7 RIAN MEDICARE MEDICARE PART Oct 06, PART B [id number] 800 Lisa HOPKINS ATIENT (WNR) (M) B 2012 UP33 [id number] RIAN MEDICARE MEDICARE PART Oct 06, PART A [id number] [id number] JAMES CE, PATIENT (WNR) (M) A 2012 UP33 2 RIAN MEDICARE MEDICARE PART Dec 06, PART D [id number] 800 Lisa HOPKINS ATIENT PART D (M) D 2018 UP33 [phone] RIAN (WNR) MEDICARE MEDICARE PART Oct 06, PART D [id number] [phone] JAMES CE, PATIENT PART D (M) D 2012 UP33 7 RIAN (WNR) MEDICARE PRESCRIPT PART Oct 06, PART D [id number] LAWRE NCE, PATIENT PART D ION D 2012 32A 0 RIAN (WNR) MEDICARE PRESCRIPT PART Oct 06, PART D [id number] LAWRE NCE, PATIENT PART D ION D 2012 UP33 0 RIAN (WNR) Selected Encounter This section includes the information on record at [place] for the Encounter. Date/Time Encounter Type Encounter Description Reason Provider Source September 10, 2021 10:01 Outpatient Encounter PRIMARY CARE/MEDICINE AM IHE Encounter [...] 28, 2021 02:00 PM AMBULATORY - [place]AT[place] Dec 02, 2021 01:30 PM AMBULATORY - [place]IAT[place] Dec 07, 2021 01:00 PM AMBULATORY - [place] [facility] Dec 09, 2021 01:00 PM AMBULATORY - [place]CHIATRY [place] Dec 14, 2021 02:00 PM AMBULATORY - MEDICINE [place] Jan 13, 2022 02:00 PM AMBULATORY - MEDICINE [place] Jan 17, 2022 01:00 PM AMBULATORY - [place]CHIATRY [place] Jan 19, 2022 01:00 PM AMBULATORY - [place]IATRY [place] Feb 03, 2022 01:00 PM AMBULATORY - [place]IATRY [place] Feb 28, 2022 11:00 AM AMBULATORY - [place]IATRY [place] Encounter Notes: All associated encounter notes This section contains the clinical notes associated to the Encounter. Date/Time Encounter Note(s) Provider Source September 10, 2021 10:01 AM PRIMARY CARE TELEPHONE ENCOUNTER NOTE: JOVAN GUDINO LOCAL TITLE: TELEPHONE NOTE/PRIMARY CARE STANDARD TITLE: PRIMARY CARE TELEPHONE ENCOUNTER NOTE DATE OF NOTE: SEPTEMBER 10, 2021@10:01 ENTRY DATE: SEPTEMBER 10, 2021@10:01:33 AUTHOR: JOVAN HOOVER EXP COSIGNER: URGENCY: STATUS: COMPLETED Operations And Intelligence Assistant LVM for to call back to make vvc appt with provider. /justine/ JOVAN VANEGAS Signed: 09/10/2021 10:01
--- OUTSIDE RECORDS SUMMARY | 2022-02-03 00:50 | XMS_ITS ---
:1950 Author Organization Department [facility] rs Address [address] [place] [address] Support Name Relationship Address Phone LORI HOPKINS Unavailable [address] [place] [address] [place] [address] LORI HOPKINS Unavailable [address] [facility] [place] [address] Insurance Providers: All historical and current Section [...] Number Silva JARRED PREFERRED STAND May 08 [id number] PROVIDER SHIVA 2011 [id number] RIAN MILLAN FEDERAL ORGANIZAT SELF ION (PPO) [place]BS [place] PREFERRED STAND May 08 [id number] [phone] JAMES CE PATIENT FEP PROVIDER SHIVA 2010 87 123 RIAN MILLAN ORGANGERMANAT INDIV ION (PPO) IDUAL BCBS OF PREFERRED STAND May 08 [id number] [phone] JAMES CE PATIENT MASS PROVIDER SHIVA 2010 87 3 RIAN MILLAN FEDERAL ORGANIZAT SELF ION (PPO) BCBS OF PREFERRED STAND May 08 [id number] [phone] JAMES CE PATIENT MASS FEP PROVIDER SHIVA 2010 87 6 RIAN MILLAN ORGANIZAT SELF ION (PPO) BCBS OF DENTAL STAND May 08, DENTAL [id number] [phone] SANDEEP, PATIENT MASS FEP INSURANCE SHIVA 2010 87 6 RIAN DENTAL [place]BS OF [place] MEDICARE FEP Dec 06 [id number] 800 SANDEEP PATIENT FEP SECONDARY STAND 2019 87 [phone] RIAN MILLAN (NO B SHIVA EXC) MEDSE Suzan CAREMARK PRESCRIPT FEP Dec 06, [id number] SANDEEP PATIENT FEP ION ONLY 2014 0 87 [phone] RIAN MILLAN CARELIONEL PRESCRIPT May 08, [id number] [phone] EDUARDO MATTHEW PATIENT FEP ION 2011 0 87 1 RIAN MILLAN PRESCRIPT CAREM May 08, [id number] [phone] EDUARDO ENCEstella, PATIENT FEP BCBS ION ARK 2011 0 87 1 RIAN FEPRX PLAN CAREMARK PRESCRIPT May 08, [id number] [phone] LAWR ENCEstella PATIENT FEPRX PLAN ION 2011 0 87 331 RIAN MILLAN-F PRESCRIPT FEPRX May 08, [id number] [phone] LA WRENCE PATIENT EP BCBS ION /PT D 2010 0 87 1 RIAN MILLAN [facility] May 18, [id number] [phone] JAMES CE, PATIENT RE [facility] AL 2003 32 7 RIAN CE ORGANIZ EXPRESS PRESCRIPT CONNE May 18, [id number] [phone] JAMES CE, PATIENT SCRIPTS ION CTICA 2003 [id number] 7 RIAN ([id number]) RE MEDICARE MEDICARE PART Oct 06, PART B [id number] JAMES CE, PATIENT (WNR) (M) B 2012 UP33 2 [place] MEDICARE MEDICARE PART Oct 06, PART A [id number] JAMES CE, PATIENT (WNR) (M) A 2013 UP33 00 [place] MEDICARE MEDICARE PART Oct 06, PART B [id number] [id number] JAMES CE, PATIENT (WNR) (M) B 2013 UP33 00 [place] MEDICARE MEDICARE PART Oct 06, PART A [id number] 800 Lisa HOPKINS (WNR) (M) A 2013 UP33 [id number] [place] MEDICARE MEDICARE PART Oct 06, PART A [id number] JAMES CE, PATIENT (WNR) (M) A 2013 UP33 7 [place] MEDICARE MEDICARE PART Oct 06, PART B [id number] JAMES CE, PATIENT (WNR) (M) B 2012 UP33 7 RIAN MEDICARE MEDICARE PART Oct 06, PART B [id number] 800 Lisa HOPKINS (WNR) (M) B 2012 UP33 [id number] RIAN MEDICARE MEDICARE PART Oct 06, PART A [id number] [id number] JAMES CE, PATIENT (WNR) (M) A 2012 UP33 2 RIAN MEDICARE MEDICARE PART Dec 06, PART D [id number] 800 Lisa HOPKINS ATIENT PART D (M) D 2018 UP33 [phone] RIAN (WNR) MEDICARE MEDICARE PART Oct 06, PART D [id number] [phone] JAMES CE, PATIENT PART D (M) D 2012 UP33 7 RIAN (WNR) MEDICARE PRESCRIPT PART Oct 06, PART D [id number] LAWRE NCE, PATIENT PART D ION D 2012 32A 0 RIAN (WNR) MEDICARE PRESCRIPT PART Oct 06, PART D [id number] [id number] LAWRE NCE, PATIENT PART D ION D 2012 UP33 0 RIAN (WNR) Selected Encounter This section includes the information on record at [place] for the Encounter. Date/Time Encounter Type Encounter Reason Provider Source Description September 22, 2021 10:46 Outpatient [facility] HERRMAN[facility],GERRI PASCUAL K AM Encounter - IND IHE Encounter Template Text not used by [place] Plan of Treatment: Future Appointments (+ 6 months) and Future Tests (+/- 45 days) The Plan of Treatment section includes future care activities for the patient from all [place] treatmentfacilities. This section includes future appointments and future orders which are active, pending orscheduled.Future Appointments This section includes appointments that were scheduled to occur 6 months from the date of the Encounter, up to a maximum of 20 appointments. The data comes from all [place] treatment facilities. Appointment Date/Time Appointment Type Appointment Facili ty Name Oct 28, 2021 02:00 PM AMBULATORY - [facility] [place] Dec 02, 2021 01:30 PM [facility] [place] Dec 07, 2021 01:00 PM [place] [facility] Dec 09, 2021 01:00 PM [facility] [place] [facility] Dec 14, 2021 02:00 PM [facility] [place] Jan 13, 2022 02:00 PM [facility] [place] Jan 17, 2022 01:00 PM [facility] [place] [facility] [place] Jan 19, 2022 01:00 PM [facility] [place] Feb 03, 2022 01:00 PM [facility] [place] Feb 28, 2022 11:00 AM [facility]ULATORY - [facility] [place] Encounter Notes: All associated encounter notes This section contains the clinical notes associated to the Encounter. Date/Time Encounter Note(s) Provider Source September 22, 2021 10:46 AM MENTAL HEALTH SECURE MESSAGING: AARON HERRMANN [place] [facility] LOCAL TITLE: MENTAL HEALTH SECURE MESSAGING [place] [facility] STANDARD TITLE: MENTAL HEALTH SECURE MESSAGING DATE OF NOTE: SEPTEMBER 22, 2021@10:46 ENTRY DATE: SEPTEMBER 22, 2021@11:46:19 AUTHOR: AARON HERRMANN EXP COSIGNER: URGENCY: STATUS: COMPLETED ------Original Message Sent: 09/21/2021 02:58 PM ET From: RIAN HOPKINS To: JIMENEZ_ZA,Monie_SIDDHARTH,Estella_DERRICK,DEMETRA_SOPC% Subject: General:Appointment Dr. Herrmann I will have to cancel my appointment for due to the fat I have some back surgery on Monday rima Collins [phone] ------Original Message Sent: 09/22/2021 11:46 AM ET From: AARON HERRMANN To: RIAN HOPKINS Subject: General:Appointment Donte Rangel Thank you for letting me viola johnson As a reminder, our next appointment is scheduled for 10/28 at 2pm. Sincerely, Aaron Herrmann PsyD /justine/ AARON HERRMANN PSYD Clinical Psychologist Signed: 09/22/2021 11:46
--- OUTSIDE RECORDS SUMMARY | 2022-02-03 00:50 | XMS_ITS ---
:1950 Author Organization Department [facility] rs Address [address] [place] [address] Support Name Relationship Address Phone LORI HOPKINS Unavailable [address] [place] [address] [phone] [place] [address] LORI HOPKINS Unavailable [address] [facility] [phone] [place] [address] Insurance Providers: All historical and current Section [...] Number Silva JARRED PREFERRED STAND May 08 [id number] PROVIDER SHIVA 2011 87 [id number] RIAN MILLAN FEDERAL ORGANIZAT SELF ION (PPO) BCBS [place] PREFERRED STAND May 08 [id number] [phone] JAMES CE PATIENT FEP PROVIDER SHIVA 2010 87 123 RIAN MILLAN ORGANGERMANAT INDIV ION (PPO) IDUAL BCBS OF PREFERRED STAND May 08 [id number] [phone] JAMES CE PATIENT MASS PROVIDER SHIVA 2010 87 3 RIAN MILLAN FEDERAL ORGANIZAT SELF ION (PPO) BCBS OF PREFERRED STAND May 08 [id number] [phone] JAMES CE PATIENT MASS FEP PROVIDER SHIVA 2010 87 6 RIAN MILLAN ORGANIZAT SELF ION (PPO) BCBS OF DENTAL STAND May 08, DENTAL [id number] [phone] SANDEEP, PATIENT MASS FEP INSURANCE SHIVA 2010 87 6 RIAN DENTAL [place] OF [place] MEDIC[place] FEP Dec 06 [id number] 800 SANDEEP PATIENT FEP SECONDARY STAND 2019 87 [phone] RIAN MILLAN (NO B SHIVA EXC) MEDSE C CAREMARK PRESCRIPT FEP Dec 06, [id number] 800 SANDEEP PATIENT FEP ION ONLY 2014 0 87 [phone] RIAN MILLAN CARELIONEL PRESCRIPT May 08, [id number] [phone] EDUARDO ENCEstella PATIENT FEP ION 2011 0 87 1 RIAN MILLAN PRESCRIPT CAREM May 08, [id number] [phone] EDUARDO ENCEstella, PATIENT FEP BCBS ION ARK 2011 0 87 1 RIAN FEPRX PLAN CAREMARK PRESCRIPT May 08, [id number] [phone] LAWR ENCE PATIENT FEPRX PLAN ION 2011 0 87 331 RIAN MILLAN-F PRESCRIPT FEPRX May 08, [id number] [phone] LA WRENCE PATIENT EP BCBS ION /PT D 2010 0 87 1 RIAN MILLAN [facility] May 18, [id number] [phone] JAMES CE, [facility] 32 7 RIAN CE ORGANIZ EXPRESS PRESCRIPT CONNE May 18, [id number] [id number] [phone] JAMES CE, PATIENT SCRIPTS ION CTICA 2003 3201 7 RIAN ([id number]) RE MEDICARE MEDICARE PART Oct 06, PART B [id number] JAMES CE, PATIENT (WNR) (M) B 2012 UP33 2 [place] MEDICARE MEDICARE PART Oct 06, PART A [id number] [id number] JAMES CE, PATIENT (WNR) (M) A 2013 UP33 00 [place] MEDICARE MEDICARE PART Oct 06, PART B [id number] JAMES CE, PATIENT (WNR) (M) B 2013 UP33 00 [place] MEDICARE MEDICARE PART Oct 06, PART A [id number] 800 Lisa HOPKINS (WNR) (M) A 2013 UP33 [id number] [place] MEDICARE MEDICARE PART Oct 06, PART B [id number] JAMES CE, PATIENT (WNR) (M) B 2013 UP33 7 [place] MEDICARE MEDICARE PART Oct 06, PART A [id number] JAMES CE, PATIENT (WNR) (M) A 2012 UP33 7 RIAN MEDICARE MEDICARE PART Oct 06, PART B [id number] 800 Lisa HOPKINS ATIENT (WNR) (M) B 2012 UP33 [id number] RIAN MEDICARE MEDICARE PART Oct 06, PART A [id number] [id number] JAMES CE, PATIENT (WNR) (M) A 2012 UP33 2 RIAN MEDICARE MEDICARE PART Dec 06, PART D [id number] 800 Lisa HOPKINS ATIENT PART D (M) D 2018 UP33 [phone] RIAN (WNR) MEDICARE MEDICARE PART Oct 06, PART D [id number] [id number] JAMES CE, PATIENT PART D (M) D 2012 UP33 7 RIAN (WNR) MEDICARE PRESCRIPT PART Oct 06, PART D [id number] LAWRE NCE, PATIENT PART D ION D 2012 32A 0 RIAN (WNR) MEDICARE PRESCRIPT PART Oct 06, PART D [id number] [id number] LAWRE NCE, PATIENT PART D ION D 2012 UP33 0 RIAN (WNR) Selected Encounter This section includes the information on record at [place] for the Encounter. Date/Time Encounter Type Encounter Description Reason Provider Source Oct 15, 2021 12:07 Outpatient Encounter PRIMARY CARE/MEDICINE PM IHE Encounter Template Text not used by ME Plan of Treatment: Future Appointments (+ 6 months) and Future Tests (+/- 45 days) The Plan of Treatment section includes future care activities for the patient from all [place] treatmentfacilities. This section includes future appointments and future orders which are active, pending orscheduled.Future Appointments This section includes appointments that were scheduled to occur 6 months from the date of the Encounter, up to a maximum of 20 appointments. The data comes from all [place] treatment facilities. Appointment Date/Time Appointment Type Appointment Facili ty Name Oct 28, 2021 02:00 PM AMBULATORY - [facility]IATRY [place] Dec 02, 2021 01:30 PM AM[facility]ATORY - [place]IATRY [place] Dec 07, 2021 01:00 PM [facility] [facility] Dec 09, 2021 01:00 PM [facility]ATORY - [facility]CHIATRY [place] Dec 14, 2021 02:00 PM [facility]ORY - [facility]ICINE [place] Jan 13, 2022 02:00 PM [facility]ORY - [facility]IC[facility] [place] Jan 17, 2022 01:00 PM [facility]ORY - [facility]IAT[facility] [place] Jan 19, 2022 01:00 PM [facility]ORY - [facility]IATRY [place] Feb 03, 2022 01:00 PM AM[facility]ATORY - [facility]IATRY [place] Feb 28, 2022 11:00 AM AM[facility]ULATORY - [facility]IATRY [place] Encounter Notes: All associated encounter notes This section contains the clinical notes associated to the Encounter. Date/Time Encounter Note(s) Provider Source Oct 15, 2021 12:07 PM PRIMARY CARE SECURE MESSAGING: JOVAN HOOVER [place] [facility] LOCAL TITLE: PRIMARY CARE SECURE MESSAGING [place] [facility] STANDARD TITLE: PRIMARY CARE SECURE MESSAGING DATE OF NOTE: OCT 15, 2021@12:07 ENTRY DATE: OCT 15, 2021@13:07:54 AUTHOR: JOVAN HOOVER EXP COSIGNER: URGENCY: STATUS: COMPLETED PRIMARY CARE SECURE MESSAGING Has ADDENDA * ------Original Message Sent: 10/15/2021 01:04 PM ET From: RIAN HOPKINS To: [email or web address] Subject: General:My head acks I need a new appointment for my head acks . They are getting worst they start in the back of the neck and move up over my ear and set in my forehead . And the meds you gave me do nothing for them . Thank nora Rangel [id number] /virgilio VANEGAS Signed: 10/15/2021 13:07 Receipt Acknowledged By: 10/15/2021 13:38 /justine/ Peri Mandujano RN Registered Nurse * AWAITING SIGNATURE * REJI SHABAZZ 10/15/2021 ADDENDUM STATUS: COMPLETED MSA - please contact to schedule with raul browning [facility], next available per 's preference. Thank you. /virgilio Mandujano RN Registered Nurse Signed: 10/15/2021 13:39 Receipt Acknowledged By: * AWAITING SIGNATURE * JOVAN HOOVER 10/15/2021 ADDENDUM STATUS: COMPLETED [place] LVM for to come in for sick clini c to evaluate headaches. /virgilio VANEGAS Signed: 10/15/2021 13:45
--- OUTSIDE RECORDS SUMMARY | 2022-02-03 00:50 | XMS_ITS | Encounter Summary ---
:1950 Author Organization Department [facility] rs Address [address] [place] [address] Support Name Relationship Address Phone LORI HOPKINS Unavailable [address] [place] [address] [place] [address] LORI HOPKINS Unavailable [address] [facility] [place] [address] Insurance Providers: All historical and current Section [...] Number Silva JARRED PREFERRED STAND May 08 [id number] PROVIDER SHIVA 2011 [id number] RIAN MILLAN FEDERAL ORGANIZAT SELF ION (PPO) BCBS [place] PREFERRED STAND May 08 [id number] [phone] JAMES CE PATIENT FEP PROVIDER SHIVA 2010 87 123 RIAN MILLAN ORGANGERMANAT INDIV ION (PPO) IDUAL BCBS OF PREFERRED STAND May 08 [id number] [phone] JAMES CE PATIENT MASS PROVIDER SHIVA 2010 87 3 RIAN MILLAN FEDERAL ORGANIZAT SELF ION (PPO) BCBS OF PREFERRED STAND May 08 [id number] [phone] JAMES CE PATIENT MASS FEP PROVIDER SHIVA 2010 87 6 RIAN MILLAN ORGANIZAT SELF ION (PPO) BCBS OF DENTAL STAND May 08, DENTAL [id number] [phone] SANDEEP, PATIENT MASS FEP INSURANCE SHIVA 2010 87 6 RIAN DENTAL BCBS OF IN MEDICARE FEP Dec 06 [id number] 800 SANDEEP PATIENT FEP SECONDARY STAND 2019 [phone] RIAN MILLAN (NO B SHIVA EXC) MEDSE C CAREMARK PRESCRIPT FEP Dec 06, [id number] SANDEEP PATIENT FEP ION ONLY 2014 0 [phone] RIAN MILLAN CARELIONEL PRESCRIPT May 08, [id number] [phone] EDUARDO ENCEstella PATIENT FEP ION 2011 0 87 1 RIAN MILLAN PRESCRIPT CAREM May 08, [id number] [phone] EDUARDO ENCEstella, PATIENT FEP BCBS ION ARK 2011 0 87 1 RIAN FEPRX PLAN CAREMARK PRESCRIPT May 08, [id number] [phone] LAWR ENCE PATIENT FEPRX PLAN ION 2011 0 87 331 RIAN MILLAN-F PRESCRIPT FEPRX May 08, [id number] [phone] LA WRENCE PATIENT EP BCBS ION /PT D 2010 0 87 1 RIAN MILLAN [facility] May 18, [id number] [phone] JAMES CE, [facility] 32 7 RIAN CE ORGANIZ EXPRESS PRESCRIPT CONNE May 18, [id number] [phone] JAMES CE, PATIENT SCRIPTS ION CTICA 2003 [id number] 7 RIAN ([id number]) RE MEDICARE MEDICARE PART Oct 06, PART B [id number] JAMES CE, PATIENT (WNR) (M) B 2012 UP33 2 JOSEPH MEDICARE MEDICARE PART Oct 06, PART A [id number] JAMES CE, PATIENT (WNR) (M) A 2013 UP33 00 [place] MEDICARE MEDICARE PART Oct 06, PART B [id number] JAMES CE, PATIENT (WNR) (M) B 2013 UP33 00 [place] MEDICARE MEDICARE PART Oct 06, PART A [id number] 800 Lisa HOPKINS (WNR) (M) A 2013 UP33 [id number] [place] MEDICARE MEDICARE PART Oct 06, PART A [id number] JAMES CE, PATIENT (WNR) (M) A 2013 UP33 7 [place] MEDICARE MEDICARE PART Oct 06, PART B [id number] JAMES CE, PATIENT (WNR) (M) B 2012 UP33 7 RIAN MEDICARE MEDICARE PART Oct 06, PART B [id number] 800 Lisa HOPKINS ATIENT (WNR) (M) B 2012 UP33 [id number] RIAN MEDICARE MEDICARE PART Oct 06, PART A [id number] JAMES CE, PATIENT (WNR) (M) A 2012 UP33 2 RIAN MEDICARE MEDICARE PART Dec 06, PART D [id number] Lisa HOPKINS ATIENT PART D (M) D 2018 UP33 [phone] RIAN (WNR) MEDICARE MEDICARE PART Oct 06, PART D [id number] [phone] JAMES CE, PATIENT PART D (M) D 2012 UP33 7 RIAN (WNR) MEDICARE PRESCRIPT PART Oct 06, PART D [id number] LAWRE NCE, PATIENT PART D ION D 2012 32A 0 RIAN (WNR) MEDICARE PRESCRIPT PART Oct 06, PART D [id number] LAWRE NCE, PATIENT PART D ION D 2012 UP33 0 RIAN (WNR) Selected Encounter This section includes the information on record at [place] for the Encounter. Date/Time Encounter Type Encounter Description Reason Provider Source Jul 21, 2021 12:00 Outpatient Encounter EVENT (HISTORICAL) AM [...] 05, 2021 02:00 PM AMBULATORY - PS[facility]CHIATRY [place] Aug 16, 2021 02:00 PM AMBULATORY - [facility]IATRY [place] Aug 26, 2021 02:00 PM AMBULATORY - PS[facility]CHIATRY [place] Sep 03, 2021 11:00 AM AMBULATORY - REHAB MEDICINE [facility] Oct 28, 2021 02:00 PM AMBULATORY - PS[facility]CHIATRY [place] Dec 02, 2021 01:30 PM AMBULATORY - PS[facility]CHIATRY [place] Dec 07, 2021 01:00 PM AMBULATORY - REHAB MEDICINE IN [facility] Dec 09, 2021 01:00 PM AMBULATORY - PS[facility]CHIATRY [place] Dec 14, 2021 02:00 PM AMBULATORY - MEDICINE [place] Jan 13, 2022 02:00 PM AMBULATORY - MEDICINE [place] Jan 17, 2022 01:00 PM AMBULATORY - PS[facility]CHIATRY [place] Jan 19, 2022 01:00 PM AMBULATORY - PS[facility]CHIATRY [place] Encounter Notes: All associated encounter notes This section contains the clinical notes associated to the Encounter. Date/Time Encounter Note(s) Provider Source Jul 21, 2021 12:00 AM NONVA NOTE: [facility] LOCAL TITLE: NON-VA OUTPATIENT NOTES [facility] STANDARD TITLE: NONVA NOTE DATE OF NOTE: JUL 21, 2021 ENTRY DATE: SEPTEMBER 15@10:27:31 AUTHOR: STEFANO LOVE MA EXP COSIGNER: URGENCY: STATUS: COMPLETED VistA Imaging - Scanned Document SCANNED DOCUMENT SIGNATURE NOT REQUIRED Electronically Filed: 09/15/2021 by: STEFANO LOVE WIRE STEWARD
--- OUTSIDE RECORDS SUMMARY | 2022-02-03 00:51 | XMS_ITS | Encounter Summary ---
:1950 Author Organization [facility] Address [address] [place] [address] Support Name Relationship Address Phone LORI HOPKINS Unavailable [address] [place] [address] LORI HOPKINS Unavailable [address] [facility] [phone] [place] [address] Insurance Providers: All historical and current Section [...] Number Silva JARRED PREFERRED STAND May 08 [id number] PROVIDER SHIVA 2010 [id number] [phone] RIAN MILLAN FEDERAL ORGANIZAT SELF ION (PPO) BCBS PR PREFERRED STAND May 08 [id number] [phone] JAMES CE PATIENT FEP PROVIDER SHIVA 2010 87 123 RIAN MILLAN ORGANGERMANAT INDIV ION (PPO) IDUAL BCBS OF PREFERRED STAND May 08 [id number] [phone] JAMES CE PATIENT MASS PROVIDER SHIVA 2010 87 3 RIAN MILLAN FEDERAL ORGANIZAT SELF ION (PPO) BCBS OF PREFERRED STAND May 08 [id number] [phone] JAMES CE PATIENT MASS FEP PROVIDER SHIVA 2010 87 6 RIAN MILLAN ORGANIZAT SELF ION (PPO) BCBS OF DENTAL STAND May 08, DENTAL [id number] [phone] SANDEEP, PATIENT MASS FEP INSURANCE SHIVA 2010 87 6 RIAN DENTAL BCBS OF IN MEDICARE FEP Dec 06 [id number] 800 SANDEEP PATIENT FEP SECONDARY STAND 2019 87 [phone] RIAN MILLAN (NO B SHIVA EXC) MEDSE C CAREMARK PRESCRIPT FEP Dec 06, [id number] SANDEEP PATIENT FEP ION ONLY 2013 0 87 [phone] RIAN MILLAN PRESCRIPT May 08, [id number] [phone] EDUARDO MATTHEW PATIENT FEP ION 2011 0 87 1 RIAN MILLAN PRESCRIPT CAREM May 08, [id number] [phone] EDUARDO MATTHEW, PATIENT FEP BCBS ION ARK 2011 0 87 1 RIAN FEPRX PLAN CAREMARK PRESCRIPT May 08, [id number] [phone] LAWR ENCEstella PATIENT FEPRX PLAN ION 2011 0 87 331 RIAN MILLAN-F PRESCRIPT FEPRX May 08, [id number] [phone] LA JENENCE PATIENT EP BCBS ION /PT D 2010 0 87 1 RIAN MILLAN [facility] May 18, [id number] [phone] JAMES CE, PATIENT RE [place] 2003 32 7 RIAN CE ORGANIZ EXPRESS PRESCRIPT CONNE May 18, [id number] [phone] JAMES CE, PATIENT SCRIPTS ION CTICA 2002 [id number] 7 RIAN ([id number]) RE MEDICARE MEDICARE PART Oct 06, PART B [id number] JAMES CE, PATIENT (WNR) (M) B 2012 UP33 2 [place] MEDICARE MEDICARE PART Oct 06, PART A [id number] Lisa HOPKINS (WNR) (M) A 2012 UP33 [id number] [place] MEDICARE MEDICARE PART Oct 06, PART A [id number] JAMES CE, PATIENT (WNR) (M) A 2013 UP33 00 [place] MEDICARE MEDICARE PART Oct 06, PART B [id number] JAMES CE, PATIENT (WNR) (M) B 2013 UP33 00 [place] MEDICARE MEDICARE PART Oct 06, PART A [id number] JAMES CE, PATIENT (WNR) (M) A 2012 UP33 7 [place] MEDICARE MEDICARE PART Oct 06, PART B [id number] JAMES CE, PATIENT (WNR) (M) B 2012 UP33 7 [place] MEDICARE MEDICARE PART Oct 06, PART B [id number] 800 SANDEEPLisa ATIENT (WNR) (M) B 2012 UP33 [id number] RIAN MEDICARE MEDICARE PART Oct 06, PART A [id number] JAMES CE, PATIENT (WNR) (M) A 2012 UP33 2 RIAN MEDICARE MEDICARE PART Dec 06, PART D [id number] Lisa HOPKINS ATIENT PART D (M) D 2018 UP33 [phone] RIAN (WNR) MEDICARE MEDICARE PART Oct 06, PART D [id number] JAMES CE, PATIENT PART D (M) D 2012 UP33 7 RIAN (WNR) MEDICARE PRESCRIPT PART Oct 06, PART D [id number] LAWRE NCE, PATIENT PART D ION D 2012 32A 0 RIAN (WNR) MEDICARE PRESCRIPT PART Oct 06, PART D [id number] LAWRE NCE, PATIENT PART D ION D 2012 UP33 0 RIAN (WNR) Selected Encounter This section includes the information on record at [place] for the Encounter. Date/Time Encounter Type Encounter Reason Provider Source Description Oct 28, 2021 PSYTX W PT 30 MENTAL HEALTH ICD-10-CM F43.10 AARON MESSINA 02:00 PM [facility] - [facility] Post-traumatic stress disorder, unspecified with Provider Comments: Posttraumatic stress disorder ([facility] [id number]) [facility] Encounter Template Text not used by [place] Assessments - Encounter Diagnoses This section includes the primary and secondary diagnoses documented for the Encounter. Date/Time Primary/Secondary Diagnosis Name Provider Source Diagnosis Oct 28, 2021 PRIMARY Post-traumatic AARON MESSINA [facility] 02:53 PM stress disorder, unspecified Plan of Treatment: [...] Date/Time Appointment Type Appointment Facili ty Name Dec 02, 2021 01:30 PM AMBULATORY - PSYCHIATRY [facility] [place] Dec 07, 2021 01:00 PM AMBULATORY - REHAB MEDICINE IN [facility] Dec 09, 2021 01:00 PM AMBULATORY - PSYCHIATRY [facility] [place] Dec 14, 2021 02:00 PM AMBULATORY - MEDICINE [facility] [place] Jan 13, 2022 02:00 PM AMBULATORY - MEDICINE [place] [place] Jan 17, 2022 01:00 PM AMBULATORY - PSYCHIATRY [facility] [place] Jan 19, 2022 01:00 PM AMBULATORY - PSYCHIATRY [facility] [place] Feb 03, 2022 01:00 PM AMBULATORY - PSYCHIATRY [place] [place] Feb 28, 2022 11:00 AM AMBULATORY - PSYCHIATRY [facility] [place] Social History: Smoking Status (Most current) and Tobacco Use (All prior to encounter date) This section includes the most current, and the historical, smoking and tobacco-related health factors from the [place] facility where the Encounter took place.Current Smoking Status This section includes the most current smoking, or tobacco-related health factor, from the [place] facility where the Encounter took place. Date/Time Current Smoking Status Comment Facility September 17, 2020 02:00 PM VA-TOBACCO FORMER USER [facility] Tobacco Use History This section includes a history of the smoking, or tobacco- related health factors, that were collected on or before the date of the Encounter. The data comes from the [place] facility where the Encounter took place. Date/Time Smoking Status/Tobacco Use Comment [facility] September 17, 2020 02:00 PM VA-TOBACCO QUIT [address] [facility] Jan 10, 2020 02:00 PM VA-TOBACCO FORMER USER [facility] Jan 10, 2020 02:00 PM VA-TOBACCO QUIT [address] [facility] Mar 23, 2018 02:31 PM VA-TOBACCO FORMER USER [facility] Mar 23, 2018 02:31 PM VA-TOBACCO QUIT [address] [facility] September 19, 2017 01:43 PM QUIT TOBACCO USE > 7 YEARS [facility] [place] September 15, 2016 01:21 PM QUIT TOBACCO USE > 7 YEARS [facility] quit 40 years ago May 12, 2015 10:44 AM QUIT TOBACCO USE > 7 YEARS [place] [place] Dec 27, 2006 10:00 AM QUIT TOBACCO USE > 7 YEARS [facility] Dec 26, 2005 08:41 AM QUIT TOBACCO USE 1-7 YEARS [facility] Aug 11, 2005 08:42 AM QUIT TOBACCO USE IN PAST [facility] Dec 09, 2004 08:20 AM QUIT TOBACCO USE IN PAST [facility] 2003Apr 02, 2004 08:07 AM QUIT TOBACCO USE IN PAST [facility] YEAR Quit several wks ago Jun 02, 2003 01:48 PM CURRENT SMOKER RADHA Reece States ocassionally Jan 31, 2002 01:44 PM HISTORY OF SMOKING [facility] stopped tobacco 1 year ago Jan 31, 2002 01:44 PM QUIT TOBACCO USE 1-7 YEARS [facility]NIOD AGO Apr 25, 2001 03:26 PM NON-TOBACCO USER [facility] JONES Stopped tobacco 3 years ago September 12, 2000 03:24 PM HISTORY OF SMOKING [facility] Quit cigaretts 2 years ago Encounter Notes: All associated encounter notes This section contains the clinical notes associated to the Encounter. Date/Time Encounter Note(s) Provider Source Oct 28, 2021 02:53 PM PSYCHOLOGY NOTE: AARON MESSINA LOCAL TITLE: PSYCHOLOGY NOTE STANDARD TITLE: PSYCHOLOGY NOTE DATE OF NOTE: OCT 28, 2021@14:53 ENTRY DATE: OCT 28, 2021@14:53:08 AUTHOR: AARON MESSINA EXP COSIGNER: URGENCY: STATUS: COMPLETED [facility] Video Connect (VVC) Standard Documentation VVC Clinician Resources Only: E911 (Emergency Call Relay Center): [phone] [facility] [employer] Crisis Line - ( [phone]-[phone]) press #1. PAMELA Suicide Coordinator [phone], Ext. [phone]; Back-up Ext. [phone] Wireless Cellular Technician of the Day(AOD), Danny SANTIAGO [phone], Ext. [phone] Introduction: Visit is being conducted by [place] [employer] [facility]. [place] identified with 2 identifiers: [X] Full Name [ ] Date of [ ] VA ID Card [X] Address Emergency Plan: confirmed and/or provided the following information in case of emergency or technology failure. PATIENT PHONE - PHONE NUMBER [CELLULAR] - Is patient phone number correct, if not, enter b elow: [place]'s phone number: RIAN HOPKINS JR [address], [place], [address] 's present location and address for appoi ntment: [address] [place] [address] [place]'s emergency contact name and phone numbe r: see chart [place] reported that location is private and sa fe: Yes Informed Consent: [place] informed of the risks and benefits of [facility] video care. [place] has the right to refuse video services. If refuses video visit, a [id number] visit will be scheduled. [place] verbalized consent for this video visit: Yes provided consent for any other persons p resent for visit: N/A If yes, who and relationship to patient: Secure visit: Visit was locked for security and privacy:Yes VISIT DURATION 30 minutes DIAGNOSES: PTSD (ICD-10-CM F43.10) [facility] STATEMENT OF GOALS/CONCERNS: [place] indicated that his treatment goals inclu de: 1) anger management SESSION FOCUS: Conversation focused on his recent stressors and ways to cope. reported that his has been in the hospital for the past 4 or 5 days due to pneumonia, difficulty breathing, and high blo od pressure. He related that he believes she was getting better. He stated th at he visits her daily. [place] reported that he recently underwent back surgery to get an implanted device placed in his back. He stated that he tur ns the implanted device off when he utilizes the Alpha-Stim device, but that he plans to contact Tsering Persaud RN for advice, which was supported. e provided him with Tsering's contact information per his request. He also ind icated that his blood glucose readings had been higher recently (and not provi ding readings), but that he has felt fine. As a result, he reported that the device may be broken and he plans to change the batteries. He also stated th at he plans to call his doctor about his blood glucose readings, which w as encouraged. Discussion focused on his sleep issues. He related that the CPAP machine has been beneficial for him, but that he continues to wak e up every 2 hours. [place] reported that Dr. Oliveira will discuss additiona l medications with him during their next appointment. He stated that he fell due to drop foot and brok e his pinky. He reported that he plans to meet with his doctor to fix the brok en finger. With regard to his drop foot, he related that he met with a special ist but has not received a brace yet. However, he reported that he will con tact them to follow-up. He indicated that he also has an appointment next [facility] to address his drop foot. 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 He stated that Herb Col on has not returned [place]'s outreach attempts. [employer] [facility] [employer] [facility] informed him that she will try to obtain information regarding individuals at the [facility] who can assist with his VA claim. INTERVENTIONS: Psychotherapeutic Interventions: Approaches used include rapport [...] 6. Sleep was largely unimpaired and restful: No 7. No evidence of psychosis (hallucinations or delusions): Yes No evidence of psychosis 8. Mood was normal: Yes; [place]'s mood was euthymic Other Observations: arrived on time to the appointment. He was neatly groomed. He was oriented X3, alert, and c ooperative. His short-term memory and long-term memory appeared intact. He did not demonstrate any abnormal motor movements, psychomotor agitation, or psychomotor retardation. Insight and judgment were within normal limits. Attention and concentration were within normal limits. RISK ASSESSMENT: Denies current suicidal/homicidal ideation, int ent, or plan. He is aware of the availability of the [facility] Crisis [facility] if needed. He is aware that he can contact [facility] if needed. PLAN FOR FOLLOW-UP: Next session planned for: 12/09 at 1:00pm, derek dobson patient is aware that he can contact [facility] at anytime prior to the next appointment. /justine/ AARON MESSINA PSYD Clinical Psychologist Signed: 10/28/2021 14:57
--- OUTSIDE RECORDS SUMMARY | 2022-02-03 00:51 | XMS_ITS | Encounter Summary ---
:1950 Author Organization Department [facility] rs Address [address] [place] [address] Support Name Relationship Address Phone LORI HOPKINS Unavailable [address] [place] [address] [phone] [place] [address] LORI HOPKINS Unavailable [address] [place] [address] Insurance Providers: All historical and current Section [...] Number Silva JARRED PREFERRED STAND May 08 [id number] PROVIDER SHIVA 2011 87 [id number] RIAN MILLAN FEDERAL ORGANIZAT SELF ION (PPO) BCBS [place] PREFERRED STAND May 08 [id number] [phone] JAMES CE PATIENT FEP PROVIDER SHIVA 2010 87 123 RIAN MILLAN ORGANGERMANAT INDIV ION (PPO) IDUAL BCBS OF PREFERRED STAND May 08 [id number] [phone] JAMES CE PATIENT MASS PROVIDER SHIVA 2010 87 3 RIAN MILLAN FEDERAL ORGANIZAT SELF ION (PPO) BCBS OF PREFERRED STAND May 08 [id number] [phone] JAMES CE PATIENT MASS FEP PROVIDER SHIVA 2010 87 6 RIAN MILLAN ORGANIZAT SELF ION (PPO) BCBS OF DENTAL STAND May 08, DENTAL [id number] [phone] SANDEEP, PATIENT MASS FEP INSURANCE SHIVA 2010 87 6 RIAN DENTAL BCBS OF [place] MEDICARE FEP Dec 06 [id number] 800 SANDEEP PATIENT FEP SECONDARY STAND 2019 87 [phone] RIAN MILLAN (NO B SHIVA EXC) MEDSE C CAREMARK PRESCRIPT FEP Dec 06, [id number] 800 SANDEEP PATIENT FEP ION ONLY 2014 0 87 [phone] RIAN MILLAN CARELIONEL PRESCRIPT May 08, [id number] [phone] EDUARDO MATTHEW PATIENT FEP ION 2011 0 87 1 RIAN MILLAN PRESCRIPT CAREM May 08, [id number] [phone] EDUARDO ENCEstella, PATIENT FEP BCBS ION ARK 2011 0 87 1 RIAN FEPRX PLAN CAREMARK PRESCRIPT May 08, [id number] [phone] LAWR ENCEstella PATIENT FEPRX PLAN ION 2011 0 87 331 RIAN MILLAN-F PRESCRIPT FEPRX May 08, [id number] [phone] LA JENENCE PATIENT EP BCBS ION /PT D 2010 0 87 1 RIAN MILLAN [facility] May 18, [id number] [phone] JAMES CE, PATIENT RE [facility] [place] 2003 32 7 RIAN CE ORGANIZ EXPRESS PRESCRIPT CONNE May 18, CN3A [id number] [phone] JAMES CE, PATIENT SCRIPTS ION CTICA 2003 3201 7 RIAN ([id number]) RE MEDICARE MEDICARE PART Oct 06, PART B [id number] JAMES CE, PATIENT (WNR) (M) B 2012 UP33 2 RIAN MEDICARE MEDICARE PART Oct 06, PART A [id number] 800 Lisa HOPKINS (WNR) (M) A 2012 UP33 [id number] RIAN MEDICARE MEDICARE PART Oct 06, PART A [id number] [phone] JAMES CE, PATIENT (WNR) (M) A 2012 UP33 7 RIAN MEDICARE MEDICARE PART Oct 06, PART B [id number] JAMES CE, PATIENT (WNR) (M) B 2013 UP33 7 RIAN MEDICARE MEDICARE PART Oct 06, PART B [id number] Lisa HOPKINS (WNR) (M) B 2013 UP33 [id number] RIAN MEDICARE MEDICARE PART Oct 06, PART A [id number] [phone] JAMES CE, PATIENT (WNR) (M) A 2013 UP33 00 RIAN MEDICARE MEDICARE PART Oct 06, PART B [id number] [phone] JAMES CE, PATIENT (WNR) (M) B 2012 UP33 00 RIAN MEDICARE MEDICARE PART Oct 06, PART A [id number] JAMES CE, PATIENT (WNR) (M) A 2012 UP33 2 RIAN MEDICARE MEDICARE PART Dec 06, PART D [id number] Lisa HOPKINS ATIENT PART D (M) D 2018 UP33 [id number] RIAN (WNR) MEDICARE MEDICARE PART Oct 06, PART D [id number] JAMES CE, PATIENT PART D (M) D 2012 UP33 7 RIAN (WNR) MEDICARE PRESCRIPT PART Oct 06, PART D [id number] LAWRE NCE, PATIENT PART D ION D 2012 32A 0 RIAN (WNR) MEDICARE PRESCRIPT PART Oct 06, PART D [id number] LAWRE NCE, PATIENT PART D ION D 2012 UP33 0 RIAN (WNR) Selected Encounter This section includes the information on record at [place] for the Encounter. Date/Time Encounter Type Encounter Reason Provider Source Description Oct 21, 2021 AFO DOUB SOLID PROSTHETICS/ORTHOT ICD-10-CM NADAZDIN-NEHAL SKO 11:39 AM STIRRUP CALF ICS M21.371 Foot YVONNE,OGNJENKA M drop, right foot with Provider Comments: Foot Drop, right Foot IHE Encounter Template Text not used by [place] Assessments - Encounter Diagnoses This section includes the primary and secondary diagnoses documented for the Encounter. Date/Time Primary/Secondary Diagnosis Name Provider Source Diagnosis Nov 02, 2021 PRIMARY Foot drop, SHANNAN RESENDEZ [place] [facility] 11:41 AM right foot [facility] Plan of Treatment: Future Appointments [...] 28, 2021 02:00 PM AMBULATORY - PSYCHIATRY [facility] Dec 02, 2021 01:30 PM AMBULATORY - PSYCHIATRY [place] Dec 07, 2021 01:00 PM [facility] Dec 09, 2021 01:00 PM AMBULATORY - PSYCHIATRY [facility] Dec 14, 2021 02:00 PM AMBULATORY - MEDICINE [facility] Jan 13, 2022 02:00 PM AMBULATORY - MEDICINE [facility] Jan 17, 2022 01:00 PM AMBULATORY - PSYCHIATRY [facility] Jan 19, 2022 01:00 PM AMBULATORY - PSYCHIATRY [facility] Feb 03, 2022 01:00 PM AMBULATORY - PSYCHIATRY [facility] Feb 28, 2022 11:00 AM AMBULATORY - PSYCHIATRY [facility]
--- OUTSIDE RECORDS SUMMARY | 2022-02-03 00:51 | XMS_ITS ---
:1950 Author Organization [facility] rs Address [address] [place] [address] Support Name Relationship Address Phone LORI HOPKINS Unavailable [address] [place] [address] [place] [address] LORI HOPKINS Unavailable [address] [facility] [phone] [place] [address] Insurance Providers: All historical and current Section [...] Number Silva JARRED PREFERRED STAND May 08 [id number] [phone] PROVIDER SHIVA [phone] RIAN MILLAN FEDERAL ORGANIZAT SELF ION (PPO) BCBS [place] PREFERRED STAND May 08 [id number] [phone] JAMES CE PATIENT FEP PROVIDER SHIVA [phone] RIAN MILLAN ORGANGERMANAT INDIV ION (PPO) IDUAL BCBS OF PREFERRED STAND May 08 [id number] [phone] JAMES CE PATIENT MASS PROVIDER SHIVA 2010 87 3 RIAN MILLAN FEDERAL ORGANIZAT SELF ION (PPO) BCBS OF PREFERRED STAND May 08 [id number] [phone] JAMES CE PATIENT MASS FEP PROVIDER SHIVA 2010 87 6 RIAN MILLAN ORGANIZAT SELF ION (PPO) BCBS OF DENTAL STAND May 08, DENTAL [id number] [phone] SANDEEP, PATIENT MASS FEP INSURANCE SHIVA 2010 87 6 RIAN DENTAL BCBS OF [place] MEDICARE FEP Dec 06 [id number] SANDEEP PATIENT FEP SECONDARY STAND 2019 [phone] RIAN MILLAN (NO B SHIVA EXC) MEDSE C CAREMARK PRESCRIPT FEP Dec 06, [id number] SANDEEP PATIENT FEP ION ONLY 2014 0 [phone] RIAN MILLAN [place] PRESCRIPT May 08, [id number] [phone] EDUARDO MATTHEW PATIENT FEP ION 2011 0 87 1 RIAN MILLAN PRESCRIPT CAREM May 08, [id number] [phone] EDUARDO ENCEstella, PATIENT FEP BCBS ION ARK 2011 0 87 1 RIAN FEPRX PLAN CAREMARK PRESCRIPT May 08, [id number] [phone] LAWR ENCE PATIENT FEPRX PLAN ION 2011 0 [phone] RIAN MILALN-F PRESCRIPT FEPRX May 08, [id number] [phone] LA JENENCE PATIENT EP BCBS ION /PT D 2010 0 87 1 RIAN MILLAN [facility] May 18, [id number] [phone] JAMES CE, PATIENT RE JONAATN AL 2003 32 7 RIAN CE ORGANIZ EXPRESS PRESCRIPT CONNE May 18, [id number] [phone] JAMES CE, PATIENT SCRIPTS ION CTICA 2002 [id number] RIAN ([id number]) RE MEDICARE MEDICARE PART Oct 06, PART B [id number] JAMES CE, PATIENT (WNR) (M) B 2012 UP33 2 [place] MEDICARE MEDICARE PART Oct 06, PART A [id number] JAMES CE, PATIENT (WNR) (M) A 2013 UP33 00 [place] MEDICARE MEDICARE PART Oct 06, PART A [id number] Lisa HOPKINS (WNR) (M) A 2012 UP33 [phone] RIAN MEDICARE MEDICARE PART Oct 06, PART B [id number] JAMES CE, PATIENT (WNR) (M) B 2013 UP33 00 [place] MEDICARE MEDICARE PART Oct 06, PART A [id number] JAMES CE, PATIENT (WNR) (M) A 2012 UP33 7 RIAN MEDICARE MEDICARE PART Oct 06, PART B [id number] JAMES CE, PATIENT (WNR) (M) B 2012 UP33 7 RIAN MEDICARE MEDICARE PART Oct 06, PART B [id number] Lisa HOPKINSIENT (WNR) (M) B 2012 UP33 [phone] RIAN MEDICARE MEDICARE PART Oct 06, PART A [id number] JAMES CE, PATIENT (WNR) (M) A 2012 UP33 2 RIAN MEDICARE MEDICARE PART Dec 06, PART D [id number] Lisa HOPKINS ATIENT PART D (M) D 2018 UP33 [phone] RIAN (WNR) MEDICARE MEDICARE PART Oct 06, PART D [id number] [phone] JAMES CE, PATIENT PART D (M) D 2012 UP33 7 RIAN (WNR) MEDICARE PRESCRIPT PART Oct 06, PART D [id number] LAWRE NCE, PATIENT PART D ION D 2012 32A 0 RIAN (WNR) MEDICARE PRESCRIPT PART Oct 06, PART D [id number] LAWRE NCE, PATIENT PART D ION D 2012 UP33 0 RIAN (WNR) Selected Encounter This section includes the information on record at [place] for the Encounter. Date/Time Encounter Type Encounter Reason Provider Source Description Oct 26, 2021 02:59 Outpatient TELEPHONE AARON GILMAN PM Encounter IHE Encounter Template Text not [...] 28, 2021 02:00 PM AMBULATORY - [facility] [place] Dec 02, 2021 01:30 PM [facility]ORY [place] [facility] [place] Dec 07, 2021 01:00 PM [place] CNTFrancisL W SANDRA PANDEY [facility] Dec 09, 2021 01:00 PM AMB[facility]ATORY - [facility]IATRY [place] Dec 14, 2021 02:00 PM [facility]ORY - [facility]ICINE [place] Jan 13, 2022 02:00 PM AM[facility]ORY - [facility]IC[facility] [place] Jan 17, 2022 01:00 PM AMBULATORY [facility]RY [place] Jan 19, 2022 01:00 PM AM[facility] [place] Feb 03, 2022 01:00 PM AMBULATORY [facility]AT[facility] [place] Feb 28, 2022 11:00 AM AMBULATORY [facility]IATRY [place] Encounter Notes: All associated encounter notes This section contains the clinical notes associated to the Encounter. Date/Time Encounter Note(s) Provider Source Oct 26, 2021 02:59 PM MENTAL HEALTH TELEPHONE ENCOUNTER NOTE: AARON NICHOLS LOCAL TITLE: TELEPHONE NOTE/MENTAL HEALTH STANDARD TITLE: MENTAL HEALTH TELEPHONE ENCOUNTE R NOTE DATE OF NOTE: OCT 26, 2021@14:59 ENTRY DATE: OCT 26, 2021@15:00:01 AUTHOR: AARON MESSINA EXP COSIGNER: URGENCY: STATUS: COMPLETED [place] left two VM messages for undersigned. In the first message, he apologized for missing his appointment and indic ated that he was busy as his was in the hospital. In the second message, he reported that he realized he did not miss his appointment with deena an d that he realized the appointment was tomorrow. Deena called and spoke to . He was informed that their next appointment was this at 2pm. He related that he will attend the appointment. /justine/ AARON MESSINA PSYD Clinical Psychologist Signed: 10/26/2021 15:01
--- OUTSIDE RECORDS SUMMARY | 2022-02-03 00:52 | XMS_ITS | Encounter Summary ---
:1950 Author Organization [facility] Address [address] [place] [address] Support Name Relationship Address Phone LORI HOPKINS Unavailable [address] [facility] [phone] [place] [address] LORI HOPKINS Unavailable [address] [facility] [place] [address] Insurance Providers: All historical and current Section [...] Number Silva ANTHZARA PREFERRED STAND May 08 [id number] [phone] PROVIDER SHIVA [phone] RIAN MILLAN FEDERAL ORGANIZAT SELF ION (PPO) BCBS IN PREFERRED STAND May 08 [id number] [phone] JAMES CE PATIENT FEP PROVIDER SHIVA [phone] RIAN MILLAN ORGANGERMANAT INDIV ION (PPO) IDUAL BCBS OF PREFERRED STAND May 08 [id number] [phone] JAMES CE PATIENT MASS PROVIDER SHIVA 2010 87 3 RIAN MILLAN FEDERAL ORGANIZAT SELF ION (PPO) BCBS OF PREFERRED STAND May 08 [id number] [phone] JAMES CE PATIENT MASS FEP PROVIDER SHIVA 2010 87 6 RIAN MILLAN ORGANIZAT SELF ION (PPO) BCBS OF DENTAL STAND May 08, DENTAL [id number] [phone] SANDEEP, PATIENT MASS FEP INSURANCE SHIVA 2010 87 6 RIAN DENTAL [place] OF [place] MEDICARE FEP Dec 06 [id number] SANDEEP PATIENT FEP SECONDARY STAND 2019 [phone] RIAN MILLAN (NO B SHIVA EXC) MEDSE C JUSTIN PRESCRIPT FEP Dec 06, [id number] SANDEEP PATIENT FEP ION ONLY 2013 0 87 [phone] RIAN MILLAN CARELIONEL PRESCRIPT May 08, [id number] [phone] EDUARDO MATTHEW PATIENT FEP ION 2011 0 87 1 RIAN MILLAN PRESCRIPT CAREM May 08, [id number] [phone] EDUARDO MATTHEW, PATIENT FEP BCBS ION ARK 2011 0 87 1 RIAN FEPRX PLAN CAREMARK PRESCRIPT May 08, [id number] [phone] EDUARDO ENCEstella PATIENT FEPRX PLAN ION 2010 0 [phone] RIAN MILLAN-F PRESCRIPT FEPRX May 08, [id number] [phone] LA KVNG PATIENT EP BCBS ION /PT D 2010 0 87 1 RIAN MILLAN [facility] May 18, [id number] [phone] JAMES CE, PATIENT RE JONATAN AL 2003 32 7 RIAN CE ORGANIZ EXPRESS PRESCRIPT CONNE May 18, [id number] [phone] JAMES CE, PATIENT SCRIPTS ION CTICA 2003 [id number] 7 RIAN ([id number]) RE MEDICARE MEDICARE PART Oct 06, PART B [id number] JAMES CE, PATIENT (WNR) (M) B 2012 UP33 2 [place] MEDICARE MEDICARE PART Oct 06, PART A [id number] [phone] JAMES CE, PATIENT (WNR) (M) A 2013 UP33 00 [place] MEDICARE MEDICARE PART Oct 06, PART B [id number] [phone] JAMES CE, PATIENT (WNR) (M) B 2012 UP33 00 [place] MEDICARE MEDICARE PART Oct 06, PART A [id number] 800 Lisa HOPKINS (WNR) (M) A 2012 UP33 [id number] [place] MEDICARE MEDICARE PART Oct 06, PART A [id number] JAMES CE, PATIENT (WNR) (M) A 2012 UP33 7 [place] MEDICARE MEDICARE PART Oct 06, PART B [id number] JAMES CE, PATIENT (WNR) (M) B 2012 UP33 7 [place] MEDICARE MEDICARE PART Oct 06, PART B [id number] 800 Lisa HOPKINS (WNR) (M) B 2012 UP33 [phone] RIAN MEDICARE MEDICARE PART Oct 06, PART A [id number] JAMES SIMON, PATIENT (WNR) (M) A 2012 UP33 2 RIAN MEDICARE MEDICARE PART Dec 06, PART D [id number] Lisa HOPKINS ATIENT PART D (M) D 2018 UP33 [phone] RIAN (WNR) MEDICARE MEDICARE PART Oct 06, PART D [id number] JAMES SIMON, PATIENT PART D (M) D 2012 UP33 7 RIAN (WNR) MEDICARE PRESCRIPT PART Oct 06, PART D [id number] LAWRE NCE, PATIENT PART D ION D 2012 32A 0 RIAN (WNR) MEDICARE PRESCRIPT PART Oct 06, PART D [id number] LAWRE NCE, PATIENT PART D ION D 2012 UP33 0 RIAN (WNR) Selected Encounter This section includes the information on record at [place] for the Encounter. Date/Time Encounter Type Encounter Reason Provider Source Description Dec 02, 2021 Outpatient TELEPHONE ICD-10-CM F43.10 WINTER LEAVITTH 01:30 PM Encounter Post-traumatic EN G stress disorder, unspecified with Provider Comments: Posttraumatic stress disorder ([facility] [id number]) IHE Encounter Template Text not used by [facility] Assessments - Encounter Diagnoses This section includes the primary and secondary diagnoses documented for the Encounter. Date/Time Primary/Secondary Diagnosis Name Provider Source Diagnosis Dec 02, 2021 PRIMARY Post-traumatic WINTER LEAVITTNATALIA LINKEL D 01:30 PM stress disorder, G unspecified Dec 02, 2021 SECONDARY Major depressive WINTER LEAVITTNATALIA LINK ELD 01:30 PM disorder, single G episode, unspecified Dec 02, 2021 SECONDARY Restless legs PEDRO LEAVITT 01:30 PM syndrome G Dec 02, 2021 SECONDARY Sleep apnea, PEDRO LEAVITT 01:30 PM unspecified G Plan of Treatment: Future [...] facilities. Appointment Date/Time Appointment Type Appointment Facili kavon Name Dec 07, 2021 01:00 PM AMBULATORY [place] [facility] Dec 09, 2021 01:00 PM AMBULATORY - [place]CHIATRY [place] Dec 14, 2021 02:00 PM AMBULATORY - MEDICINE [place] Jan 13, 2022 02:00 PM AMBULATORY - MEDICINE [place] Jan 17, 2022 01:00 PM AMBULATORY - [place]CHIATRY [place] Jan 19, 2022 01:00 PM AMBULATORY PS[facility]CHIATRY [place] Feb 03, 2022 01:00 PM AMBULATORY - [facility]CHIATRY [place] Feb 28, 2022 11:00 AM AMBULATORY - [place]CHIATRY [place] Social History: Smoking Status (Most current) and [...] took place. Date/Time Current Smoking Status Comment [facility] September 17, 2020 02:00 PM VA-TOBACCO FORMER USER [facility] Tobacco Use History This section includes a history of the smoking, or tobacco- related health factors, that were collected on or before the date of the Encounter. The data comes from the [place] facility where the Encounter took place. Date/Time Smoking Status/Tobacco Use Comment [facility] September 17, 2020 02:00 PM VA-TOBACCO QUIT 15 YRS OR [facility] Jan 10, 2020 02:00 PM VA-TOBACCO FORMER USER [facility] Jan 10, 2020 02:00 PM VA-TOBACCO QUIT 15 YRS OR [place] [facility] Mar 23, 2018 02:31 PM VA-TOBACCO FORMER USER [facility] Mar 23, 2018 02:31 PM VA-TOBACCO QUIT 15 YRS OR [place] MORE September 19, 2017 01:43 PM QUIT TOBACCO USE > 7 YEARS [place] September 15, 2016 01:21 PM QUIT TOBACCO USE > 7 YEARS [place] AGO quit 40 years ago May 12, 2015 10:44 AM QUIT TOBACCO USE > 7 YEARS [place] Dec 27, 2006 10:00 AM QUIT TOBACCO USE > 7 YEARS [place] Dec 26, 2005 08:41 AM QUIT TOBACCO USE 1-7 YEARS [place] Aug 11, 2005 08:42 AM QUIT TOBACCO [...] the Encounter. Date/Time Encounter Note(s) Provider Source Dec 02, 2021 01:54 PM MENTAL HEALTH TELEPHONE ENCOUNTER NOTE: PEDRO MONTOYA [facility] TITLE: TELEPHONE NOTE/MENTAL HEALTH STANDARD TITLE: MENTAL HEALTH TELEPHONE ENCOUNTE R NOTE DATE OF NOTE: DEC 02, 2021@13:54 ENTRY DATE: DEC 02, 2021@13:54:50 AUTHOR: PEDRO LEAVITT EXP COSIGNER: URGENCY: STATUS: COMPLETED TELEPHONE NOTE/MENTAL HEALTH Has ADDENDA * telephone note 21-30 min for encounter, patient agrees to telep nolan appointment chart reviewed Patient presents as relatively stable, b ut does have the stressor of increased pain. But some ongoing PTSD and depressive sympt oms. Some irritability. But patient reports more insomnia. Some nightmares. Pt denies SI and violent ideation. Well organize d thoughts. No h/o psychotic sx's. No PI or delusi ons presented. Speech normal/fluent. Cognitive exam grossly intact. Llamas s interests, likes to read. 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 Renal Impairment ([facility] [id number]) 2. Depression ([facility] [id number]) 3. Co-management 4. Tear of left rotator cuff 5. Posttraumatic stress disorder 6. Type 2 diabetes mellitus in obese 7. Mixed hyperlipidemia 8. Restless legs 9. Insomnia 10. Chronic pain 11. Herniated Disc * 12. Sleep apnea (SNOMED CT 46514551) 13. Gastroesophageal Reflux Disorder 14. Coronary artery disease (SNOMED CT 92509096) 15. Glaucoma 16. Osteoarthritis (SNOMED CT 890392956) 17. Essential hypertension (SNOMED CT 16379033) 18. Hypercholesterolemia (SNOMED CT 30731980) 19. Obesity Active Outpatient Medications (including Supplie s): Active Outpatient Medications Status 1) BETAMETHASONE DIPROPIONATE 0.05% CREAM APPLY A THIN ACTIVE LAYER TOPICALLY TWICE DAILY FOR ITCHING/RASH 2) BIMATOPROST 0.01% OPH SOLN INSTILL 1 DROP INT O EACH ACTIVE EYE AT BEDTIME TO REDUCE PRESSURE IN THE EYE 3) BRIMONIDINE 0.2%/TIMOLOL 0.5% OPH SOLN INSTIL L 1 DROP ACTIVE INTO THE LEFT EYE TWICE DAILY 4) CARBOXYMETHYLCELLULOSE 0.5% OPH SOLN INSTILL 1 DROP ACTIVE INTO EACH EYE TWICE DAILY 5) CHOLECALCIF 25MCG (D3-1,000UNIT) TAB TAKE ONE TABLET ACTIVE BY MOUTH ONCE DAILY FOR VITAMIN SUPPLEMENTATION 6) DULOXETINE HCL 30MG EC CAP TAKE THREE CAPSULE S BY ACTIVE MOUTH ONCE DAILY FOR MOOD 7) GLUCOSE 4GM CHEW TAB CHEW FOUR TABLETS BY GRISELDA TH 15 ACTIVE MIN NEEDED FOR LOW BLOOD SUGAR (<70MG/DL), RECHECK SUGAR LEVEL IN 15 MINUTES AND IF <70, T AMY ANOTHER 4 TABLET 8) INSULIN NPH HUMAN 100 U/ML INJ NOVOLIN N INJE CT 25 ACTIVE UNITS 100UNIT/ML SUBCUTANEOUSLY EVERY DAY AND INJECT 38 UNITS 100UNIT/ML AT BEDTIME FOR DIABE [place] PRESCRIBER : DR. LYNNETTE LEE 9) INSULIN SYRINGE 1ML 31G 8MM USE 1 SYRINGE TWI CE DAILY ACTIVE FOR INSULIN INJECTIONS 10) INSULIN,ASPART,HUMAN 100 UNIT/ML INJ INJECT 10-12 ACTIVE UNITS SUBCUTANEOUSLY EVERY MORNING 30 MINUTES BEFORE BREAKFAST NEEDED AND INJECT 25-28 UNI TS EVERY EVENING 11) METOPROLOL SUCCINATE 200MG SA TAB TAKE ONE T ABLET BY ACTIVE (S) MOUTH ONCE DAILY FOR BLOOD PRESSURE/HEART 12) OMEPRAZOLE 20MG CAP,EC TAKE TWO CAPSULES BY MOUTH ACTIVE (S) EVERY MORNING 30 MINUTES BEFORE BREAKFAST Active Non-VA Medications Status 1) Non-VA AMLODIPINE [...] 50MG TAB 50MG BY MO UTH ACTIVE 10) Non-VA OXYCODONE HCL 5MG/APAP 325MG TAB 1 TA BLET BY ACTIVE MOUTH EVERY 4 TO 6 HOURS NEEDED 11) Non-VA ROPINIROLE HCL 3MG TAB 3MG BY MOUTH A CTIVE 12) Non-VA TIMOLOL MALEATE 0.5% OPH SOLN 1 DROP DAILY ACTIVE 13) Non-VA VITAMIN E 90MG (200 UNIT) CAP 200UNT BY MOUTH ACTIVE EVERY DAY 25 Total Medications pcp -- [facility] [place] PAST PSYCH MED HX: prozac -- not [...] denied suicidal and violent ideation, but the [place] Crisis Line information and number were reviewed w patient as a precaution. The patient also understands to call 911 or to go to ER in the ev ent of an emergency. Continue psychotherapy w Dr Herrmann for PTSD/irritab ility/depression continue w alpha stim device which helps anxiety /PTSD symptoms, and patient previously reported that this was helpin g his sleep. He felt that it decreased irritability. I also offered pt CBT for insomnia -- pt decline d After discussion, we decided to continue cymabal ta 90 mg daily --which has provided probably partial benefit for depression and PTSD symptoms, but some ongoing symptoms. We decided against increasing the dose , as it i s already relatively high we want to avoid side effects. consider wellbutrin, trintellix, vortioxetine if insuff reponse to cymbalta. Alternatively consider augmenting Cymb leighton with BuSpar. we again discussed options including prazosin or trazodone for insomnia/nightmares -- pt does not want trazodone -- did not help in past, and he does not want prazosin due to s/e profile Because pt is prescribed narcotic for pain by pc p (pt is reliable with the narcotic and denies any overuse), as a precautio n I educated pt re naloxone rescue nasal spray -- renewed again 06/2021-- pt still has this -- pt [...] e of using cpap for sleep apnea. Patient denies recent gambling -- recommended [place] rtc 1-2 mo for med f/u or sooner thr open access prn by calling Medication Reconciliation: Outpatient: Has the [...] /justine/ PEDRO LEAVITT MD STAFF PSYCHIATRIST Signed: 12/02/2021 18:43 Receipt Acknowledged By: 12/03/2021 07:28 /justine/ Magi Eugene ADVANCED QUALITY CONTROL ASSESSOR 12/03/2021 ADDENDUM STATUS: COMPLETED After more consideration, I decided to offer the patient Trintellix trial for depression anxiety (and there is no dosing adjus tment needed for renal impairment); starting Trintellix will require ta pering Cymbalta. I will first submit the nonformulary consult. After this is a pproved, I will call the patient 12/13 to give instruct ions on how to taper Cymbalta and start Trintellix. /justine/ PEDRO LEAVITT MD STAFF PSYCHIATRIST Signed: 12/03/2021 17:34 12/13/2021 ADDENDUM STATUS: COMPLETED I called the patient, the Tr intellix was approved. I reviewed instructions with the patient. The patient will start Trintellix 5 mg daily which is low-dose. The patient will have Cymbalta taper which I rev iewed with him. He will pick this up, when he picks up the Trintellix.I revie wed the medication instructions/plan, side effect profile, and silvia tment expectations with the patient. He discus sed this with me and demonstrated good understanding. I asked the patient to call me if he has any pro blems during the taper /titration. In particular if he has any withdraw al symptoms from the Cymbalta or any serotonin syndrome symptoms. The pt is probably low risk for suicide or viole nce -- the patient denied suicidal and violent ideation, but the [facility] information and number were reviewed wit h patient as a precaution. The patient also understands to call 911 or to go to ER in t he event of an emergency. /justine/ PEDRO LEAVITT MD STAFF PSYCHIATRIST Signed: 12/14/2021 08:42 12/14/2021 ADDENDUM STATUS: UNSIGNED You may not VIEW this UNSIGNED Addendum.
--- OUTSIDE RECORDS SUMMARY | 2022-02-03 00:52 | XMS_ITS ---
:1950 Author Organization Department [facility] rs Address [address] [place] [address] Support Name Relationship Address Phone LORI HOPKINS Unavailable [address] [place] [address] [phone] [place] [address] LORI HOPKINS Unavailable [address] [facility] [phone] [place] [address] Insurance Providers: All historical and current Section [...] Number Silva JARRED PREFERRED STAND May 08 [id number] PROVIDER SHIVA 2011 [id number] [phone] RIAN MILLAN FEDERAL ORGANIZAT SELF ION (PPO) BCBS [place] PREFERRED STAND May 08 [id number] [phone] JAMES CE PATIENT FEP PROVIDER SHIVA 2010 87 123 RIAN MILLAN ORGANGERMANAT INDIV ION (PPO) IDUAL BCBS OF PREFERRED STAND May 08 [id number] [phone] JAMES CE PATIENT MASS PROVIDER SHIVA 2010 87 3 RIAN MILLAN FEDERAL ORGANIZAT SELF ION (PPO) BCBS OF PREFERRED STAND May 08 [id number] [phone] JAMES CE PATIENT MASS FEP PROVIDER SHIVA 2010 87 6 RIAN MILLAN ORGANIZAT SELF ION (PPO) BCBS OF DENTAL STAND May 08, DENTAL [id number] [phone] SNADEEP, PATIENT MASS FEP INSURANCE SHIVA 2010 87 6 RIAN DENTAL BCBS OF [place] MEDICARE FEP Dec 06 [id number] SANDEEP PATIENT FEP SECONDARY STAND 2019 [phone] RIAN MILLAN (NO B SHIVA EXC) MEDSE C CAREMARK PRESCRIPT FEP Dec 06, [id number] SANDEEP PATIENT FEP ION ONLY 2014 0 87 [phone] RIAN MILLAN [place]ARK PRESCRIPT May 08, [id number] [phone] EDUARDO ENCEstella PATIENT FEP ION 2011 0 87 1 RIAN MILLAN PRESCRIPT CAREM May 08, [id number] [phone] EDUARDO ENCEstella, PATIENT FEP BCBS ION ARK 2011 0 87 1 RIAN FEPRX PLAN CAREMARK PRESCRIPT May 08, [id number] [phone] LAWR ENCE PATIENT FEPRX PLAN ION 2011 0 87 331 RIAN MILLAN-F PRESCRIPT FEPRX May 08, [id number] [phone] LA WRENCE PATIENT EP BCBS ION /PT D 2010 0 87 1 RIAN MILLAN [facility] May 18, [id number] [phone] JAMES CE, [facility] 2003 32 7 RIAN CE ORGANIZ EXPRESS PRESCRIPT CONNE May 18, [id number] [phone] JAMES CE, PATIENT SCRIPTS ION CTICA 2003 [id number] 7 RIAN ([id number]) RE MEDICARE MEDICARE PART Oct 06, PART A [id number] JAMES CE, PATIENT (WNR) (M) A 2012 UP33 2 [place] MEDICARE MEDICARE PART Oct 06, PART B [id number] JAMES CE, PATIENT (WNR) (M) B 2012 UP33 2 [place] MEDICARE MEDICARE PART Oct 06, PART A [id number] JAMES CE, PATIENT (WNR) (M) A 2013 UP33 00 [place] MEDICARE MEDICARE PART Oct 06, PART B [id number] JAMES CE, PATIENT (WNR) (M) B 2012 UP33 00 [place] MEDICARE MEDICARE PART Oct 06, PART A [id number] 800 Lisa HOPKINS (WNR) (M) A 2012 UP02 [id number] [place] MEDICARE MEDICARE PART Oct 06, PART A [id number] JAMES CE, PATIENT (WNR) (M) A 2012 UP33 7 RIAN MEDICARE MEDICARE PART Oct 06, PART B [id number] [phone] JAMES CE, PATIENT (WNR) (M) B 2012 UP33 7 RIAN MEDICARE MEDICARE PART Oct 06, PART B [id number] 800 Lisa HOPKINS ATIENT (WNR) (M) B 2012 UP33 [phone] RIAN MEDICARE MEDICARE PART Dec 06, PART D [id number] Lisa HOPKINS ATIENT PART D (M) D 2018 UP33 [phone] RIAN (WNR) MEDICARE MEDICARE PART Oct 06, PART D [id number] [phone] JAMES CE, PATIENT PART D (M) D 2012 UP33 7 RIAN (WNR) MEDICARE PRESCRIPT PART Oct 06, PART D [id number] LAWRE NCE, PATIENT PART D ION D 2012 32A 0 RIAN (WNR) MEDICARE PRESCRIPT PART Oct 06, PART D [id number] LAWRE NCE, PATIENT PART D ION D 2012 UP33 0 RIAN (WNR) Selected Encounter This section includes the information on record at [place] for the Encounter. Date/Time Encounter Type Encounter Description Reason Provider Source Dec 02, 2021 11:53 Outpatient Encounter PRIMARY CARE/MEDICINE AM IHE Encounter [...] Appointment Type Appointment Facili ty Name Dec 07, 2021 01:00 PM AMBULATORY - [place] [facility] Dec 09, 2021 01:00 PM AMBULATORY - [place]CHIATRY [place] Dec 14, 2021 02:00 PM AMBULATORY - [place]ICINE [place] Jan 13, 2022 02:00 PM AMBULATORY - [place]IC[place] Jan 17, 2022 01:00 PM AMBULATORY - [place]IATRY [place] Jan 19, 2022 01:00 PM AMBULATORY - [place]IATRY [place] Feb 03, 2022 01:00 PM AMBULATORY - PS[place]IATRY [place] Feb 28, 2022 11:00 AM AMBULATORY - PS[place]CHIATRY [place] Encounter Notes: All associated encounter notes This section contains the clinical notes associated to the Encounter. Date/Time Encounter Note(s) Provider Source Dec 02, 2021 11:53 AM PRIMARY CARE TELEPHONE ENCOUNTER NOTE: JOVAN GUDINO [facility] TITLE: TELEPHONE NOTE/PRIMARY CARE STANDARD TITLE: PRIMARY CARE TELEPHONE ENCOUNTER NOTE DATE OF NOTE: DEC 02, 2021@11:53 ENTRY DATE: DEC 02, 2021@11:53:23 AUTHOR: JOVAN HOOVER EXP COSIGNER: URGENCY: STATUS: COMPLETED Control Clerk spoke with to make appointment [facility] FINGERPRINT CLASSIFIER for ongoing headaches. was requesting a renewal for Atorvastati n Calcium. Please renew, fill and mail when ready. /justine/ JOVAN VANEGAS Signed: 12/02/2021 11:55 Receipt Acknowledged By: 12/02/2021 11:57 /justine/ Peri Mandujano, RN Registered Nurse * AWAITING SIGNATURE * REJI SHABAZZ
--- OUTSIDE RECORDS SUMMARY | 2022-02-03 00:52 | XMS_ITS ---
:1950 Author Organization Department [facility] rs Address [address] [place] [address] Support Name Relationship Address Phone LORI HOPKINS Unavailable [address] [place] [address] [phone] [place] [address] LORI HOPKINS Unavailable [address] [place] [address] Insurance Providers: All historical and current Section [...] Number Silva JARRED PREFERRED STAND May 08 [id number] [phone] PROVIDER SHIVA [phone] RIAN MILLAN FEDERAL ORGANIZAT SELF ION (PPO) BCBS [place] PREFERRED STAND May 08 [id number] [phone] JAMES CE PATIENT FEP PROVIDER SHIVA 2010 87 123 RIAN MILLAN ORGANGERMANAT INDIV ION (PPO) IDUAL BCBS OF PREFERRED STAND May 08 [id number] [phone] JAMES CE PATIENT MASS PROVIDER SHIVA 2010 87 3 RIAN MILLAN FEDERAL ORGANIZAT SELF ION (PPO) BCBS OF PREFERRED STAND May 08 [id number] [phone] JAMES CE PATIENT MASS FEP PROVIDER SHIVA 2010 87 6 RIAN MILLAN ORGANIZAT SELF ION (PPO) BCBS OF DENTAL STAND May 08, DENTAL [id number] [phone] SANDEEP, PATIENT MASS FEP INSURANCE SHIVA 2010 87 6 RIAN DENTAL [place]BS OF [place] MEDICARE FEP Dec 06 [id number] 800 SANDEEP PATIENT FEP SECONDARY STAND 2019 87 [phone] RIAN MILLAN (NO B SHIVA EXC) MEDSE C CAREMARK PRESCRIPT FEP Dec 06, [id number] SANDEEP PATIENT FEP ION ONLY 2014 0 87 [phone] RIAN MILLAN [place] PRESCRIPT May 08, [id number] [phone] EDUARDO ENCEstella PATIENT FEP ION 2011 0 87 1 RIAN MILLAN PRESCRIPT CAREM May 08, [id number] [phone] EDUARDO ENCEstella, PATIENT FEP BCBS ION ARK 2011 0 87 1 RIAN FEPRX PLAN CAREMARK PRESCRIPT May 08, [id number] [phone] LAWR ENCE PATIENT FEPRX PLAN ION 2011 0 87 331 RIAN MILLAN-F PRESCRIPT FEPRX May 08, [id number] [phone] LA WRENCE PATIENT EP BCBS ION /PT D 2010 [address] [facility] May 18, [id number] [phone] JAMES CE, [facility] 32 7 RIAN CE ORGANIZ EXPRESS PRESCRIPT CONNE May 18, [id number] [phone] JAMES CE, PATIENT SCRIPTS ION CTICA 2003 [id number] 7 RIAN ([id number]) RE MEDICARE MEDICARE PART Oct 06, PART A [id number] JAMES CE, PATIENT (WNR) (M) A 2012 UP33 2 [place] MEDICARE MEDICARE PART Oct 06, PART B [id number] JAMES CE, PATIENT (WNR) (M) B 2012 UP33 2 [place] MEDICARE MEDICARE PART Oct 06, PART A [id number] JAMES CE, PATIENT (WNR) (M) A 2013 UP33 00 [place] MEDICARE MEDICARE PART Oct 06, PART B [id number] JAMES CE, PATIENT (WNR) (M) B 2012 UP33 00 [place] MEDICARE MEDICARE PART Oct 06, PART A [id number] 800 Lisa HOPKINS (WNR) (M) A 2012 UP09 [id number] [place] MEDICARE MEDICARE PART Oct 06, PART A [id number] JAMES CE, PATIENT (WNR) (M) A 2012 UP33 7 RIAN MEDICARE MEDICARE PART Oct 06, PART B [id number] [phone] JAMES CE, PATIENT (WNR) (M) B 2012 UP33 7 RIAN MEDICARE MEDICARE PART Oct 06, PART B [id number] 800 Lisa HOPKINS ATIENT (WNR) (M) B 2012 UP33 [phone] RIAN MEDICARE MEDICARE PART Dec 06, PART D [id number] Lisa HOPKINS ATIENT PART D (M) D 2018 UP33 [phone] RIAN (WNR) MEDICARE MEDICARE PART Oct 06, PART D [id number] [phone] JAMES CE, PATIENT PART D (M) D 2012 UP33 7 RIAN (WNR) MEDICARE PRESCRIPT PART Oct 06, PART D [id number] LAWRE NCE, PATIENT PART D ION D 2012 32A 0 RIAN (WNR) MEDICARE PRESCRIPT PART Oct 06, PART D [id number] LAWRE NCE, PATIENT PART D ION D 2012 UP33 0 RIAN (WNR) Selected Encounter This section includes the information on record at [place] for the Encounter. Date/Time Encounter Type Encounter Description Reason Provider Source Dec 02, 2021 11:58 Outpatient Encounter PRIMARY CARE/MEDICINE AM IHE Encounter Template Text not used by NE Plan of Treatment: Future Appointments (+ 6 months) and Future Tests (+/- 45 days) The Plan of Treatment section includes future care activities for the patient from all [place] treatmentfacilities. This section includes future appointments and future orders which are active, pending orscheduled.Future Appointments This section includes appointments that were scheduled to occur 6 months from the date of the Encounter, up to a maximum of 20 appointments. The data comes from all [place] treatment facilities. Appointment Date/Time Appointment Type Appointment Facili ty Name Dec 07, 2021 01:00 PM AMBULATORY - [place]ICINE [place] [facility]DE[facility] Dec 09, 2021 01:00 PM AMBULATORY - PSYCHIATRY [place] Dec 14, 2021 02:00 PM AMBULATORY - MEDICINE [place] Jan 13, 2022 02:00 PM AMBULATORY - MEDICINE [place] Jan 17, 2022 01:00 PM AMBULATORY - PSYCHIATRY [place] Jan 19, 2022 01:00 PM AMBULATORY - PSYCHIATRY [place] Feb 03, 2022 01:00 PM AMBULATORY - PSYCHIATRY [place] Feb 28, 2022 11:00 AM AMBULATORY - PSYCHIATRY [place] Encounter Notes: All associated encounter notes This section contains the clinical notes associated to the Encounter. Date/Time Encounter Note(s) Provider Source Dec 02, 2021 11:58 AM MEDICATION MGT NOTE: MAGNUS SANDERSON [facility] LOCAL TITLE: OUTPATIENT MEDICATION REQUEST STANDARD TITLE: MEDICATION MGT NOTE DATE OF NOTE: DEC 02, 2021@11:58 ENTRY DATE: DEC 02, 2021@11:58:17 AUTHOR: MAGNUS SANDERSON EXP COSIGNER: URGENCY: STATUS: COMPLETED Medication Request Date of Request: Nov Please renew and mail. ATORVASTATIN TAB 80MG TAKE ONE TABLET BY MOUTH ONCE DAILY FOR CHOLESTE ROL Quantity: 90 Refills: justine/ Magnus Sanderson RN Registered Nurse Signed: 12/02/2021 11:58 Receipt Acknowledged By: * AWAITING SIGNATURE * PETER CHONG
--- OUTSIDE RECORDS SUMMARY | 2022-02-03 00:53 | XMS_ITS | Encounter Summary ---
:1950 Author Organization [facility] Address [address] [place] [address] Support Name Relationship Address Phone LORI HOPKINS Unavailable [address] [facility] [place] [address] LORI HOPKINS Unavailable [address] [facility] [place] [address] Insurance Providers: All historical and current Section [...] Number Silva JARRED PREFERRED STAND May 08 [id number] PROVIDER SHIVA [phone] RIAN MILLAN FEDERAL ORGANIZAT SELF ION (PPO) BCBS [place] PREFERRED STAND May 08 [id number] [phone] JAMES CE PATIENT FEP PROVIDER SHIVA 2010 87 123 RIAN MILLAN ORGANGERMANAT INDIV ION (PPO) IDUAL BCBS OF PREFERRED STAND May 08 [id number] [phone] JAMES CE PATIENT MASS PROVIDER SHIVA 2010 87 3 RIAN MILLAN FEDERAL ORGANIZAT SELF ION (PPO) BCBS OF PREFERRED STAND May 08 [id number] [phone] JAMES CE PATIENT MASS FEP PROVIDER SHIVA 2010 87 6 RIAN MILLAN ORGANIZAT SELF ION (PPO) BCBS OF DENTAL STAND May 08, DENTAL [id number] [phone] SANDEEP, PATIENT MASS FEP INSURANCE SHIVA 2010 87 6 RIAN DENTAL BCBS OF [place] MEDICARE FEP Dec 06 [id number] 800 SANDEEP PATIENT FEP SECONDARY STAND 2019 87 [phone] RIAN MILLAN (NO B SHIVA EXC) MEDSE C CAREMARK PRESCRIPT FEP Dec 06, [id number] SANDEEP PATIENT FEP ION ONLY 2013 0 87 [phone] RIAN MILLAN PRESCRIPT May 08, [id number] [phone] EDUARDO MATTHEW PATIENT FEP ION 2011 0 87 1 RIAN MILLAN PRESCRIPT CAREM May 08, [id number] [phone] EDUARDO MATTHEW, PATIENT FEP BCBS ION ARK 2011 0 87 1 RIAN FEPRX PLAN CAREMARK PRESCRIPT May 08, [id number] [phone] LAWR ENCEstella PATIENT FEPRX PLAN ION 2010 0 87 331 RIAN MILLAN-F PRESCRIPT FEPRX May 08, [id number] [phone] LA KVNG PATIENT EP BCBS ION /PT D 2010 0 87 1 RIAN MILLAN [facility] May 18, [id number] [phone] JAMES CE, PATIENT RE [place] 2003 32 7 RIAN CE ORGANIZ EXPRESS PRESCRIPT CONNE May 18, [id number] [phone] JAMES CE, PATIENT SCRIPTS ION CTICA 2002 [id number] 7 RIAN ([id number]) RE MEDICARE MEDICARE PART Oct 06, PART B [id number] JAMES CE, PATIENT (WNR) (M) B 2012 UP33 2 [place] MEDICARE MEDICARE PART Oct 06, PART A [id number] [phone] JAMES CE, PATIENT (WNR) (M) A 2013 UP33 00 [place] MEDICARE MEDICARE PART Oct 06, PART B [id number] JAMES CE, PATIENT (WNR) (M) B 2013 UP33 00 [place] MEDICARE MEDICARE PART Oct 06, PART A [id number] 800 Lisa HOPKINS (WNR) (M) A 2012 UP33 [id number] [place] MEDICARE MEDICARE PART Oct 06, PART A [id number] JAMES CE, PATIENT (WNR) (M) A 2013 UP33 7 [place] MEDICARE MEDICARE PART Oct 06, PART B [id number] JAMES CE, PATIENT (WNR) (M) B 2012 UP33 7 [place] MEDICARE MEDICARE PART Oct 06, PART B [id number] 800 Lisa HOPKINS ATIENT (WNR) (M) B 2012 UP33 [phone] RIAN MEDICARE MEDICARE PART Oct 06, PART A [id number] JAMES CE, PATIENT (WNR) (M) A 2012 UP33 2 RIAN MEDICARE MEDICARE PART Dec 06, PART D [id number] SANDEEPLisa ATIENT PART D (M) D 2018 UP33 [phone] RIAN (WNR) MEDICARE MEDICARE PART Oct 06, PART D [id number] [phone] JAMES CE, PATIENT PART D (M) D 2012 UP33 7 RIAN (WNR) MEDICARE PRESCRIPT PART Oct 06, PART D [id number] LAWRE NCE, PATIENT PART D ION D 2012 32A 0 RIAN (WNR) MEDICARE PRESCRIPT PART Oct 06, PART D [id number] LAWRE NCE, PATIENT PART D ION D 2012 UP33 0 RIAN (WNR) Selected Encounter This section includes the information on record at [place] for the Encounter. Date/Time Encounter Type Encounter Reason Provider Source Description Dec 09, 2021 01:00 Outpatient [facility] MESSINAN K PM Encounter - IND IHE Encounter Template Text [...] Appointment Type Appointment Facili ty Name Dec 14, 2021 02:00 PM AMBULATORY - MEDICINE [place] Jan 13, 2022 02:00 PM AMBULATORY - MEDICINE [place] Jan 17, 2022 01:00 PM AMBULATORY - PSYCHIATRY [place] Jan 19, 2022 01:00 PM AMBULATORY - PSYCHIATRY [place] Feb 03, 2022 01:00 PM AMBULATORY - PSYCHIATRY [place] Feb 28, 2022 11:00 AM AMBULATORY - PSYCHIATRY [place] Social History: Smoking Status (Most current) and Tobacco Use (All prior to encounter date) This section includes the most current, and the historical, smoking and tobacco-related health factors from the [place] facility where the Encounter took place.Current Smoking Status This section includes the most current smoking, or tobacco-related health factor, from the [place] facility where the Encounter took place. Date/Time Current Smoking Status Comment Facility September 17, 2020 02:00 PM VA-TOBACCO FORMER USER [facility] Tobacco Use History This section includes a history of the smoking, or tobacco- related health factors, that were collected on or before the date of the Encounter. The data comes from the [place] facility where the Encounter took place. Date/Time Smoking Status/Tobacco Use Comment [facility] September 17, 2020 02:00 PM VA-TOBACCO QUIT 15 YRS OR [facility] Jan 10, 2020 02:00 PM VA-TOBACCO FORMER USER [facility] Jan 10, 2020 02:00 PM VA-TOBACCO QUIT 15 YRS OR [facility] Mar 23, 2018 02:31 PM VA-TOBACCO FORMER USER [facility] Mar 23, 2018 02:31 PM VA-TOBACCO QUIT 15 YRS OR [facility] September 19, 2017 01:43 PM QUIT TOBACCO USE > 7 YEARS [place] September 15, 2016 01:21 PM QUIT TOBACCO USE > 7 YEARS [place] [facility] quit 40 years ago May 12, 2015 10:44 AM QUIT TOBACCO USE > 7 YEARS [place] Dec 27, 2006 10:00 AM QUIT TOBACCO USE > 7 YEARS [place] Dec 26, 2005 08:41 AM QUIT TOBACCO USE 1-7 YEARS [place] Aug 11, 2005 08:42 AM QUIT TOBACCO USE IN PAST S [facility] Dec 09, 2004 08:20 AM QUIT TOBACCO USE IN PAST [facility] 2003Apr 02, 2004 08:07 AM QUIT TOBACCO USE IN PAST [facility] Quit several wks ago Jun 02, 2003 01:48 PM CURRENT SMOKER RADHA D States ocassionally Jan 31, 2002 01:44 PM HISTORY OF SMOKING [place] stopped tobacco 1 year ago Jan 31, 2002 01:44 PM QUIT TOBACCO USE 1-7 YEARS [place] Apr 25, 2001 03:26 PM NON-TOBACCO USER [facility] LD Stopped tobacco 3 years ago September 12, 2000 03:24 PM HISTORY OF SMOKING [place] Quit cigaretts 2 years ago Encounter Notes: All associated encounter notes This section contains the clinical notes associated to the Encounter. Date/Time Encounter Note(s) Provider Source Dec 09, 2021 01:44 PM CLERICAL NOTE: AARON MESSINA LOCAL TITLE: APPOINTMENT NO SHOW STANDARD TITLE: CLERICAL NOTE DATE OF NOTE: DEC 09, 2021@13:44 ENTRY DATE: DEC 09, 2021@13:44:58 AUTHOR: AARON MESSINA EXP COSIGNER: URGENCY: STATUS: COMPLETED APPOINTMENT NO SHOW Has ADDENDA Patient Name: RIAN HOPKINS JR Patient SSN: [id number] Date and time of Appointment No show : 12/09/21 13:00 PATIENT PHONE - PHONE NUMBER [CELLULAR] - Patient's medical record was reviewed. Follow-up actions were determined and initiated: Please check/complete as applies: [X]Telephoned Directly [ ]Re-scheduled for next available appt [X]Sent a N0-show letter ( must call for appointment) [ ]Other (Emergent/Overbook, etc.): Additional Comments: Mims did not attend the [facility] appointment. Cynthiae blair tried to contact Mims. However, the phone kept ringing and she was unable to leave a VM message. Future Clinic Visits 12/14/2021 14:00 CWM/SO/SICK CALL CANDY DEPOSITING MACHINE OPERATOR 01/17/2022 13:00 CWM/SO/TH/[facility]/TREE /virgilio MESSINA PSYD Clinical Psychologist Signed: 12/09/2021 13:45 01/04/2022 ADDENDUM STATUS: COMPLETED Undersigned called and left a VM message for . She provided her contact information and requested a return call. /virgilio MESSINA PSYD Clinical Psychologist Signed: 01/04/2022 11:45 01/04/2022 ADDENDUM STATUS: COMPLETED Mims called and spoke to undersigned. Next appointment will occur on 02/03 at 1pm via [facility]. /virgilio MESSINA PSYD Clinical Psychologist Signed: 01/04/2022 14:40
--- OUTSIDE RECORDS SUMMARY | 2022-02-03 00:53 | XMS_ITS ---
:1950 Author Organization Department [facility] rs Address [address] [place] [address] Support Name Relationship Address Phone LORI HOPKINS Unavailable [address] [place] [address] [phone] [place] [address] LORI HOPKINS Unavailable [address] [place] [address] [phone] [place] [address] Insurance Providers: All historical and current Section [...] Number Silva JARRED PREFERRED STAND May 08 [id number] PROVIDER SHIVA [phone] RIAN MILLAN FEDERAL ORGANIZAT SELF ION (PPO) [place]BS [place] PREFERRED STAND May 08 [id number] [phone] JAMES CE PATIENT FEP PROVIDER SHIVA 2010 87 123 RIAN MILLAN ORGANGERMANAT INDIV ION (PPO) IDUAL BCBS OF PREFERRED STAND May 08 [id number] [phone] JAMES CE PATIENT MASS PROVIDER SHIVA 2010 87 3 RIAN MILLAN FEDERAL ORGANIZAT SELF ION (PPO) BCBS OF PREFERRED STAND May 08 [id number] [phone] JAMES CE PATIENT MASS FEP PROVIDER SHIVA 2010 87 6 RIAN MILLAN ORGANIZAT SELF ION (PPO) BCBS OF DENTAL STAND May 08, DENTAL [id number] [phone] SANDEEP, PATIENT MASS FEP INSURANCE SHIVA 2010 87 6 RIAN DENTAL BCBS OF [place] MEDICARE FEP Dec 06 [id number] 800 SANDEEP PATIENT FEP SECONDARY STAND 2019 [phone] RIAN MILLAN (NO B SHIVA EXC) MEDSE C CAREMARK PRESCRIPT FEP Dec 06, [id number] 800 SANDEEP PATIENT FEP ION ONLY 2014 0 87 [phone] RIAN MILLAN CAREMARK PRESCRIPT May 08, [id number] [phone] EDUARDO ENCEstella PATIENT FEP ION 2011 0 87 1 RIAN MILLAN PRESCRIPT CAREM May 08, [id number] [phone] EDUARDO ENCEstella, PATIENT FEP BCBS ION ARK 2011 0 87 1 RIAN FEPRX PLAN CAREMARK PRESCRIPT May 08, [id number] [phone] LAWR ENCE PATIENT FEPRX PLAN ION 2011 0 87 331 RIAN MILLAN-F PRESCRIPT FEPRX May 08, [id number] [phone] LA JENENCE PATIENT EP BCBS ION /PT D 2010 0 87 1 RINA MILLAN [facility] May 18, [id number] [phone] JAMES CE, PATIENT RE JONATAN AL 2003 32 7 RIAN CE ORGANIZ EXPRESS PRESCRIPT CONNE May 18, [id number] [phone] JAMES CE, PATIENT SCRIPTS ION CTICA 2003 [id number] 7 RIAN ([id number]) RE MEDICARE MEDICARE PART Oct 06, PART A [id number] JAMES CE, PATIENT (WNR) (M) A 2012 UP33 00 [place] MEDICARE MEDICARE PART Oct 06, PART B [id number] JAMES CE, PATIENT (WNR) (M) B 2012 UP33 00 [place] MEDICARE MEDICARE PART Oct 06, PART A [id number] JAMES CE, PATIENT (WNR) (M) A 2012 UP33 2 [place] MEDICARE MEDICARE PART Oct 06, PART B [id number] JAMES CE, PATIENT (WNR) (M) B 2012 UP33 2 [place] MEDICARE MEDICARE PART Oct 06, PART A [id number] Lisa HOPKINS (WNR) (M) A 2012 UP33 [id number] [place] MEDICARE MEDICARE PART Oct 06, PART A [id number] [phone] JAMES CE, PATIENT (WNR) (M) A 2012 UP33 7 RIAN MEDICARE MEDICARE PART Oct 06, PART B [id number] [phone] JAMES CE, PATIENT (WNR) (M) B 2012 UP33 7 RIAN MEDICARE MEDICARE PART Oct 06, PART B [id number] 800 SANDEEPLisa ATIENT (WNR) (M) B 2012 UP33 [phone] RIAN MEDICARE MEDICARE PART Dec 06, PART D [id number] Lisa HOPKINS ATIENT PART D (M) D 2018 UP33 [phone] RIAN (WNR) MEDICARE MEDICARE PART Oct 06, PART D [id number] JAMES CE, PATIENT PART D (M) D 2012 UP33 7 RIAN (WNR) MEDICARE PRESCRIPT PART Oct 06, PART D [id number] LAWRE NCE, PATIENT PART D ION D 2012 32A 0 RIAN (WNR) MEDICARE PRESCRIPT PART Oct 06, PART D [id number] [phone] LAWRE NCE, PATIENT PART D ION D 2012 UP33 0 RIAN (WNR) Selected Encounter This section includes the information on record at [place] for the Encounter. Date/Time Encounter Type Encounter Reason Provider Source Description Dec 06, 2021 QNHP OL [facility] ICD-10-CM F43.10 LIONEL MCDUFFIE 01:22 PM ASSMT&MGMT 11-20 Post-traumatic stress disorder, unspecified with Provider Comments: Posttraumatic stress disorder ([facility] [id number]) IHE Encounter Template Text not used by [place] Assessments - Encounter Diagnoses This section includes the primary and secondary diagnoses documented for the Encounter. Date/Time Primary/Secondary Diagnosis Name Provider Source Diagnosis Dec 06, 2021 PRIMARY Post-traumatic LIONEL MCDUFFIE [facility] W[facility] N 01:32 PM stress disorder, [facility] unspecified Dec 06, 2021 SECONDARY Major depressive LIONEL MCDUFFIE [facility] WS TRN 01:32 PM disorder, single [facility] episode, unspecified Plan of Treatment: Future Appointments (+ [...] 2021 01:00 PM AMBULATORY - REHAB MEDICINE [facility] W STRPriyanka [facility] Dec 09, 2021 01:00 PM AMBULATORY - PSYCHIATRY [place] Dec 14, 2021 02:00 PM AMBULATORY - MEDICINE [place] Jan 13, 2022 02:00 PM AMBULATORY - MEDICINE [place] Jan 17, 2022 01:00 PM AMBULATORY - PSYCHIATRY [place] Jan 19, 2022 01:00 PM AMBULATORY - PS[facility]CHIATRY [place] Feb 03, 2022 01:00 PM AMBULATORY - PSYCHIATRY [place] Feb 28, 2022 11:00 AM AMBULATORY - PSYCHIATRY [place] Encounter Notes: All associated encounter notes This section contains the clinical notes associated to the Encounter. Date/Time Encounter Note(s) Provider Source Dec 06, 2021 01:22 PM MEDICATION MGT CONSULT: LIONEL MCDUFFIE [facility] LOCAL TITLE: CONSULT REPORT/NON FORMULARY [facility] STANDARD TITLE: MEDICATION MGT CONSULT DATE OF NOTE: DEC 06, 2021@13:22 ENTRY DATE: DEC 06, 2021@13:22:19 AUTHOR: LIONEL MCDUFFIE EXP COSIGNER: URGENCY: STATUS: COMPLETED The medical record has been reviewed with regard to this restricted drug request. Medication requested: VORTIOXETINE 10MG TAB Medication indication: Depression, PTSD Medical history relevant to this request: 71 y/o [place] with depression and PTSD. As per provider: The patient has had several antidepressant tria ls without benefit for depression, anxiety, ptsd... Of note the patient has moderate renal insufficiency and this limits the choice of antidepressants. A ccording to Epocrates, Trintellix does not require dosing adjustment wi th renal disease. It is reasonable choice for treating patients depressi on and may help anxiety and PTSD. Estimated CrCl/Cockcroft & Gault using Adjusted BW: 46.1 (ml/min) Prior medication trials: Duloxetine Mirtazapine Sertraline Amitriptyline Trazodone (ADR or SE: LLAMAS) Fluoxetine Venlafaxine Augmentation strategies with buspirone and bupro pion could be consider but caution is needed in the set ting of advance renal impairment. Multiple trials of SNRI and SSRI's. Reasonable to consider Vortioxetine in setting of CKD as well as advanced age as it may provide pro-cognitive effects, should this be a concern. The request is APPROVED - A documented contraindication exists to the pr eferred formulary alternative(s) - A documented therapeutic failure of the prefer red formulary alternative(s) exists Sometimes voritoxetine may worsen RLS symptoms . Please monitor closely. /justine/ LIONEL MCDUFFIE RPH, PHARMD CLINICAL CONTROL TOWER RADIO OPERATOR Signed: 12/06/2021 13:32
--- OUTSIDE RECORDS SUMMARY | 2022-02-03 00:53 | XMS_ITS | Encounter Summary ---
:[address] [facility] Address [address] [place] [address] Support Name Relationship Address Phone LORI HOPKINS Unavailable [address] [place] [address] [place] [address] LORI HOPKINS Unavailable [address] [place] [address] [place] [address] Insurance Providers: All historical and current Section [...] Number Silva JARRED PREFERRED STAND May 08 [id number] PROVIDER SHIVA 2010 [id number] [phone] RIAN MILLAN FEDERAL ORGANIZAT SELF ION (PPO) BCBS [place] PREFERRED STAND May 08 [id number] [phone] JAMES CE PATIENT FEP PROVIDER SHIVA 2010 87 123 RIAN MILLAN ORGANGERMANAT INDIV ION (PPO) IDUAL BCBS OF PREFERRED STAND May 08 [id number] [phone] JAMES CE PATIENT MASS PROVIDER SHIVA 2010 87 3 RIAN MILLAN FEDERAL ORGANIZAT SELF ION (PPO) BCBS OF PREFERRED STAND May 08 [id number] [phone] JAMES CE PATIENT MASS FEP PROVIDER SHIVA 2010 87 6 RIAN MILLAN ORGANIZAT SELF ION (PPO) BCBS OF DENTAL STAND May 08, DENTAL [id number] [phone] SANDEEP, PATIENT MASS FEP INSURANCE SHIVA 2010 87 6 RIAN DENTAL [place] OF [place] MEDICARE FEP Dec 06 [id number] SANDEEP PATIENT FEP SECONDARY STAND 2019 [phone] RIAN MILLAN (NO B SHIVA EXC) MEDSE C CAREMARK PRESCRIPT FEP Dec 06, [id number] 800 SANDEEP PATIENT FEP ION ONLY 2014 0 87 [phone] RIAN MILLAN CAREMARK PRESCRIPT May 08, [id number] [phone] EDUARDO MATTHEW PATIENT FEP ION 2011 0 87 1 RIAN MILLAN PRESCRIPT CAREM May 08, [id number] [phone] EDUARDO MATTHEW, PATIENT FEP BCBS ION ARK 2011 0 87 1 RIAN FEPRX PLAN CAREMARK PRESCRIPT May 08, [id number] [phone] LAWR ENCE PATIENT FEPRX PLAN ION 2011 0 87 331 RIAN MILLAN-F PRESCRIPT FEPRX May 08, [id number] [phone] LA WRENCE PATIENT EP BCBS ION /PT D 2010 0 87 1 RIAN MILLAN [facility] May 18, [id number] [phone] JAMES CE, PATIENT RE JONATAN AL 2003 32 7 RIAN CE ORGANIZ EXPRESS PRESCRIPT CONNE May 18, [id number] [phone] JAMES CE, PATIENT SCRIPTS ION CTICA 2003 [id number] 7 RIAN ([id number]) RE MEDICARE MEDICARE PART Oct 06, PART A [id number] 800 Lsia HOPKINS (WNR) (M) A 2012 UP33 [phone] RIAN MEDICARE MEDICARE PART Oct 06, PART B [id number] 800 Lisa HOPKINS (WNR) (M) B 2012 UP33 [phone] [place] MEDICARE MEDICARE PART Oct 06, PART A [id number] JAMES CE, PATIENT (WNR) (M) A 2013 UP33 00 [place] MEDICARE MEDICARE PART Oct 06, PART B [id number] [phone] JAMES CE, PATIENT (WNR) (M) B 2013 UP33 00 [place] MEDICARE MEDICARE PART Oct 06, PART A [id number] JAMES CE, PATIENT (WNR) (M) A 2013 UP33 2 RIAN MEDICARE MEDICARE PART Oct 06, PART A [id number] JAMES CE, PATIENT (WNR) (M) A 2012 UP33 7 RIAN MEDICARE MEDICARE PART Oct 06, PART B [id number] JAMES CE, PATIENT (WNR) (M) B 2012 UP33 7 RIAN MEDICARE MEDICARE PART Oct 06, PART B [id number] JAMES CE, PATIENT (WNR) (M) B 2012 UP33 2 RIAN MEDICARE MEDICARE PART Dec 06, PART D [id number] Lisa HOPKINS ATIENT PART D (M) D 2018 UP33 [phone] RIAN (WNR) MEDICARE PRESCRIPT PART Oct 06, PART D [id number] LAWRE NCE, PATIENT PART D ION D 2012 32A 0 RIAN (WNR) MEDICARE PRESCRIPT PART Oct 06, PART D [id number] LAWRE NCE, PATIENT PART D ION D 2012 UP33 0 RIAN (WNR) MEDICARE MEDICARE PART Oct 06, PART D [id number] JAMES CE, PATIENT PART D (M) D 2012 UP33 7 RIAN (WNR) Selected Encounter This section includes the information on record at [place] for the Encounter. Date/Time Encounter Type Encounter Reason Provider Source Description Dec 07, 2021 [facility] FOR AUDIOLOGY ICD-10-CM Z46.1 MICK HERRERA 01:00 PM HEARING DEVICE Encounter for fitting and adjustment of hearing aid with Provider Comments: Encounter for Fitting and Adjustment of Hearing Aid IHE Encounter Template Text not used by [place] Assessments - Encounter Diagnoses This section includes the primary and secondary diagnoses documented for the Encounter. Date/Time Primary/Secondary Diagnosis Name Provider Source Diagnosis Dec 07, 2021 PRIMARY Encounter for QUENTIN CHAUDHRY [facility] WSTRN 01:45 PM fitting and R [facility] adjustment of hearing aid Dec 07, 2021 SECONDARY Sensorineural QUENTIN CHAUDHRY [facility] WSTRN 01:45 PM hearing loss, [facility] [place] [facility] bilateral Plan of Treatment: Future Appointments (+ 6 [...] Appointment Type Appointment Facili ty Name Dec 09, 2021 01:00 PM [facility] Dec 14, 2021 02:00 PM AMBULATORY MEDICINE [place] Jan 13, 2022 02:00 PM [facility] Jan 17, 2022 01:00 PM [facility] Jan 19, 2022 01:00 PM [facility] Feb 03, 2022 01:00 PM [facility] Feb 28, 2022 11:00 AM [facility] Encounter Notes: All associated encounter notes This section contains the clinical notes associated to the Encounter. Date/Time Encounter Note(s) Provider Source Dec 07, 2021 06:57 AM AUDIOLOGY NOTE: QUENTIN CHAUDHRY [facility] W STRN LOCAL TITLE: AUDIOLOGY [facility] STANDARD TITLE: AUDIOLOGY NOTE DATE OF NOTE: DEC 07, 2021@06:57 ENTRY DATE: DEC 07, 2021@06:58:01 AUTHOR: QUENTIN CHAUDHRY EXP COSIGNER: ROBERTO HERRERA URGENCY: STATUS: COMPLETED AUDIOLOGY [facility] Has ADDENDA was seen today, 2021 for hearing aid problems/maintenance. He arrived 16 minutes late for his 30 minute appoin tment. SENSORINEURAL HEARING LOSS, BILATERAL Hearing Aid(s): Oneyda Gamino AI RICs Date Issued: 06/08/2021 requested: [X]Hearing aid maintenance [X]Hearing aid is not working- LEFT Action Taken: *Significant corrosion visualized in the battery compartments. [X]Cleaned and checked hearing aids [X]Replaced receivers [X]Replaced microphone covers []Replaced domes/wax guards [X]Replaced batteries Sound check was positive for the right hearing aid, however negative for the left aid. [X]Left hearing aid was sent in for repair. Once the repaired hearing aid has been received by the clinic, please mail to the addre ss on file. [X]A Perfect Dry Lux hearing aid dehumidifier was ordered today and will be mailed to the 's home via [facility]. Plan: [X][place] to call prn [X]Once the repaired hearing aid has been received by the clinic, please mail to the address on file. /justine/ QUENTIN CHAUDHRY AUDIOLOGY HEALTH WAY INSPECTOR Signed: 12/07/2021 13:45 /justine/ MICK Smiley, MIR-A CHIEF, AUDIOLOGY/FINANCIAL MARKET DEALER Cosigned: 12/07/2021 13:52 12/14/2021 ADDENDUM STATUS: COMPLETED The 's repaired hearing aid was received by the clinic this date and restored to user settings. Sound check was posit ashley. The hearing aid was packaged [facility]. /justine/ QUENTIN CHAUDHRY AUDIOLOGY HEALTH WAY INSPECTOR Signed: 12/14/2021 08:29 /justine/ Clark Vila CCC-A Infection Prevention Specialist Cosigned: 12/14/2021 09:06 for MICK Smiley CCC-A CHIEF, AUDIOLOGY/FINANCIAL MARKET DEALER
--- OUTSIDE RECORDS SUMMARY | 2022-02-03 00:54 | XMS_ITS | Encounter Summary ---
:1950 Author Organization [facility] Address [address] [place] [address] Support Name Relationship Address Phone LORI HOPKINS Unavailable [address] [place] [address] LORI HOPKINS Unavailable [address] [facility] [phone] [place] [address] Insurance Providers: All historical and current Section [...] Number Silva ANTHZARA PREFERRED STAND May 08 [id number] PROVIDER SHIVA 2010 [id number] [phone] RIAN MILLAN FEDERAL ORGANIZAT SELF ION (PPO) BCBS [place] PREFERRED STAND May 08 [id number] [phone] JAMES CE PATIENT FEP PROVIDER SHIVA 2010 87 123 RIAN MILLAN ORGANGERMANAT INDIV ION (PPO) IDUAL BCBS OF PREFERRED STAND May 08 [id number] [phone] JAMES CE PATIENT MASS PROVIDER SHIVA 2010 87 3 RIAN MILLAN FEDERAL ORGANIZAT SELF ION (PPO) BCBS OF PREFERRED STAND May 08 [id number] [phone] JAMES CE PATIENT MASS FEP PROVIDER SHIVA 2010 87 6 RIAN MILLAN ORGANIZAT SELF ION (PPO) BCBS OF DENTAL STAND May 08, DENTAL [id number] [phone] SANDEEP, PATIENT MASS FEP INSURANCE SHIVA 2010 87 6 RIAN DENTAL [place]BS OF [place] MEDICARE FEP Dec 06 [id number] SANDEEP PATIENT FEP SECONDARY STAND 2019 87 [phone] RIAN MILLAN (NO B SHIVA EXC) MEDSE C CAREMARK PRESCRIPT FEP Dec 06, [id number] SANDEEP PATIENT FEP ION ONLY 2013 0 87 [phone] RIAN MILLAN CARELIONEL PRESCRIPT May 08, [id number] [phone] EDUARDO MATTHEW PATIENT FEP ION 2011 0 87 1 RIAN MILLAN PRESCRIPT CAREM May 08, [id number] [phone] EDUARDO MATTHEW, PATIENT FEP BCBS ION ARK 2011 0 87 1 RIAN FEPRX PLAN CAREMARK PRESCRIPT May 08, [id number] [phone] EDUARDO ENCEstella PATIENT FEPRX PLAN ION 2010 0 87 331 RIAN MILLAN-F PRESCRIPT FEPRX May 08, [id number] [phone] LA KVNG PATIENT EP BCBS ION /PT D 2010 0 87 1 RIAN MILLAN [facility] May 18, [id number] [phone] JAMES CE, PATIENT RE JONATAN AL 2003 32 7 RIAN CE ORGANIZ EXPRESS PRESCRIPT CONNE May 18, [id number] [phone] JAMES CE, PATIENT SCRIPTS ION CTICA 2003 [id number] 7 RIAN ([id number]) RE MEDICARE MEDICARE PART Oct 06, PART A [id number] JAMES CE, PATIENT (WNR) (M) A 2013 UP33 00 [place] MEDICARE MEDICARE PART Oct 06, PART B [id number] JAMES CE, PATIENT (WNR) (M) B 2012 UP33 00 [place] MEDICARE MEDICARE PART Oct 06, PART A [id number] [id number] JAMES CE, PATIENT (WNR) (M) A 2012 UP33 2 [place] MEDICARE MEDICARE PART Oct 06, PART B [id number] JAMES CE, PATIENT (WNR) (M) B 2012 UP33 2 [place] MEDICARE MEDICARE PART Oct 06, PART A [id number] 800 Lisa HOPKINS (WNR) (M) A 2012 UP33 [id number] RIAN MEDICARE MEDICARE PART Oct 06, PART A [id number] JAMES CE, PATIENT (WNR) (M) A 2012 UP33 7 [place] MEDICARE MEDICARE PART Oct 06, PART B [id number] [phone] JAMES CE, PATIENT (WNR) (M) B 2012 UP33 7 RIAN MEDICARE MEDICARE PART Oct 06, PART B [id number] 800 Lisa HOPKINS ATIENT (WNR) (M) B 2012 UP33 [phone] RIAN MEDICARE MEDICARE PART Dec 06, PART D [id number] 800 SANDEEP P ATIENT PART D (M) D 2018 UP33 [phone] RIAN (WNR) MEDICARE MEDICARE PART Oct 06, PART D [id number] JAMES CE, PATIENT PART D (M) D 2012 UP33 7 RIAN (WNR) MEDICARE PRESCRIPT PART Oct 06, PART D [id number] LAWRE NCE, PATIENT PART D ION D 2012 32A 0 RIAN (WNR) MEDICARE PRESCRIPT PART Oct 06, PART D [id number] LAWRE NCE, PATIENT PART D ION D 2012 UP33 0 RIAN (WNR) Selected Encounter This section includes the information on record at [place] for the Encounter. Date/Time Encounter Type Encounter Reason Provider Source Description Dec 14, 2021 Outpatient TELEPHONE ICD-10-CM F32.9 WINTER LEAVITTH 06:00 PM Encounter Major depressive EN G disorder, single episode, unspecified with Provider Comments: Depression ([facility] [id number]) IHE Encounter Template Text not used by [place] Assessments - Encounter Diagnoses This section includes the primary and secondary diagnoses documented for the Encounter. Date/Time Primary/Secondary Diagnosis Name Provider Source Diagnosis Dec 14, 2021 PRIMARY Major depressive PEDRO LEAVITT SHAROND 06:00 PM disorder, single G episode, unspecified Dec 14, 2021 SECONDARY Post-traumatic PEDRO LEAVITTKATELYNEL D 06:00 PM stress disorder, G unspecified Plan of Treatment: Future Appointments (+ [...] Date/Time Appointment Type Appointment Facili ty Name Jan 13, 2022 02:00 PM [facility] - [facility]INE [facility] Jan 17, 2022 01:00 PM [facility] Jan 19, 2022 01:00 PM [facility] Feb 03, 2022 01:00 PM [facility] Feb 28, 2022 11:00 AM [facility] - [facility]RY [facility] Vital Signs: All taken on the encounter date This section contains inpatient and outpatient Vital Signs collected on the date of the Encounter. Date/Time Temperature Pulse Blood Respiratory SP02 Pain Height Weight Jakob dy Source Pressure Rate Mass Index Dec 14 97.2 F 73 165/75 16 /min 97 % 2021 02:15 /min mm[Hg] IELD PM Social History: Smoking Status (Most current) and [...] place. Date/Time Current Smoking Status Comment Facility Dec 14, 2021 02:00 PM VA-TOBACCO FORMER USER [facility] Tobacco Use History This section includes a history of the smoking, or tobacco- related health factors, that were collected on or before the date of the Encounter. The data comes from the [place] facility where the Encounter took place. Date/Time Smoking Status/Tobacco Use Comment [facility] Dec 14, 2021 02:00 PM VA-TOBACCO QUIT 15 YRS OR [facility] September 17, 2020 02:00 PM VA-TOBACCO FORMER USER [facility] September 17, 2020 02:00 PM VA-TOBACCO QUIT 15 YRS OR [facility] Jan 10, 2020 02:00 PM VA-TOBACCO FORMER USER [facility] Jan 10, 2020 02:00 PM VA-TOBACCO QUIT 15 YRS OR [facility] Mar 23, 2018 02:31 PM VA-TOBACCO FORMER USER [facility] Mar 23, 2018 02:31 PM VA-TOBACCO QUIT 15 YRS OR [facility] September 19, 2017 01:43 PM QUIT TOBACCO USE > 7 YEARS [facility] September 15, 2016 01:21 PM QUIT TOBACCO USE > 7 YEARS [facility] AGO quit 40 years ago May 12, 2015 10:44 AM QUIT TOBACCO USE > 7 YEARS [facility] Dec 27, 2006 10:00 AM QUIT TOBACCO USE > 7 YEARS [facility]ME Dec 26, 2005 08:41 AM QUIT TOBACCO USE 1-7 YEARS ACME AGO Aug 11, 2005 08:42 AM QUIT TOBACCO USE IN PAST Dec 09, 2004 08:20 AM QUIT TOBACCO USE IN PAST 2003Apr 02, 2004 08:07 AM QUIT TOBACCO USE IN PAST YEAR Quit several wks ago Jun 02, 2003 01:48 PM CURRENT SMOKER RADHA Reece States ocassionally Jan 31, 2002 01:44 PM HISTORY OF SMOKING [place] HUI stopped tobacco 1 year ago Jan 31, 2002 01:44 PM QUIT TOBACCO USE 1-7 YEARS ACME AGO Apr 25, 2001 03:26 PM NON-TOBACCO USER [facility] Stopped tobacco 3 years ago September 12, 2000 03:24 PM HISTORY OF SMOKING [place] HUI Quit cigaretts 2 years ago Encounter Notes: All associated encounter notes This section contains the clinical notes associated to the Encounter. Date/Time Encounter Note(s) Provider Source Dec 15, 2021 07:16 PM MENTAL HEALTH TELEPHONE ENCOUNTER NOTE: PEDRO MONTOYA [facility] LOCAL TITLE: TELEPHONE NOTE/MENTAL HEALTH STANDARD TITLE: MENTAL HEALTH TELEPHONE ENCOUNTE R NOTE DATE OF NOTE: DEC 15, 2021@19:16 ENTRY DATE: DEC 15, 2021@19:16:37 AUTHOR: PEDRO LEAVITT EXP COSIGNER: URGENCY: STATUS: COMPLETED TELEPHONE NOTE/MENTAL HEALTH Has ADDENDA * See addendum from 12/14 to my 12/02 note for teleph one note from 12/14 11 minutes for encounter Same diagnosis as in 12/02 note /justine/ PEDRO LEAVITT MD STAFF PSYCHIATRIST Signed: 12/15/2021 19:18 12/26/2021 ADDENDUM STATUS: COMPLETED on 12/14 , I called the patient re starting trinte llix trial for depression and ptsd Dx: PTSD Unspecified depressive do /es/ PEDRO LEAVITT MD STAFF PSYCHIATRIST Signed: 12/26/2021 12:11
--- OUTSIDE RECORDS SUMMARY | 2022-02-03 00:54 | XMS_ITS | Encounter Summary ---
:1950 Author Organization [facility] Address [address] [place] [id number] Support Name Relationship Address Phone LORI HOPKINS Unavailable [address] [facility] [phone] [place] [address] LORI HOPKINS Unavailable [address] [facility] [phone] 8 [place] [address] Insurance Providers: All historical and current Section [...] Number Silva ANTHEM PREFERRED STAND May 08 [id number] [phone] PROVIDER SHIVA [phone] RIAN MILLAN FEDERAL ORGANIZAT SELF ION (PPO) BCBS [place] PREFERRED STAND May 08 [id number] [phone] JAMES CE PATIENT FEP PROVIDER SHIVA [phone] RIAN MILLAN ORGANBERTHA INDIV ION (PPO) IDUAL BCBS OF PREFERRED STAND May 08 [id number] [phone] JAMES CE PATIENT MASS PROVIDER SHIVA 2010 87 3 RIAN MILLAN FEDERAL ORGANIZAT SELF ION (PPO) BCBS OF PREFERRED STAND May 08 [id number] [phone] JAMES CE PATIENT MASS FEP PROVIDER SHIVA 2010 87 6 RIAN MILLAN ORGANGERMANAT SELF ION (PPO) BCBS OF DENTAL STAND May 08, DENTAL [id number] [phone] SANDEEP, PATIENT MASS FEP INSURANCE SHIVA 2010 87 6 RIAN DENTAL [place] OF [place] MEDIC[place] FEP Dec 06 [id number] [phone] SANDEEP PATIENT FEP SECONDARY STAND 2019 [phone] RIAN MILLAN (NO B SHIVA EXC) MEDSE C CAREMARK PRESCRIPT FEP Dec 06, [id number] SANDEEP PATIENT FEP ION ONLY 2013 0 [phone] RIAN MILLAN CAREMARK PRESCRIPT May 08, [id number] [phone] EDUARDO MATTHEW PATIENT FEP ION 2010 0 87 1 RIAN MILLAN PRESCRIPT CAREM May 08, [id number] [phone] EDUARDO MATTHEW, PATIENT FEP BCBS ION ARK 2011 0 87 1 RIAN FEPRX PLAN CAREMARK PRESCRIPT May 08, [id number] [phone] LAWR ENCEstella PATIENT FEPRX PLAN ION 2010 0 [phone] RIAN MILLAN-F PRESCRIPT FEPRX May 08, [id number] [phone] LA KVNG PATIENT EP BCBS ION /PT D 2010 0 87 1 RIAN MILLAN [facility] May 18, [id number] [phone] JAMES CE, PATIENT RE JONATAN AL 2003 32 7 RIAN CE ORGANIZ EXPRESS PRESCRIPT CONNE May 18, [id number] [phone] JAMES CE, PATIENT SCRIPTS ION CTICA 2003 [id number] RIAN ([id number]) RE MEDICARE MEDICARE PART Oct 06, PART A [id number] JAMES CE, PATIENT (WNR) (M) A 2012 UP33 00 JOSEPH MEDICARE MEDICARE PART Oct 06, PART A [id number] Lisa HOPKINS (WNR) (M) A 2012 UP33 [phone] RIAN MEDICARE MEDICARE PART Oct 06, PART B [id number] JAMES CE, PATIENT (WNR) (M) B 2013 UP33 00 [place] MEDICARE MEDICARE PART Oct 06, PART B [id number] Lisa HOPKINS (WNR) (M) B 2012 UP33 [phone] [place] MEDICARE MEDICARE PART Oct 06, PART A [id number] JAMES CE, PATIENT (WNR) (M) A 2012 UP33 2 [place] MEDICARE MEDICARE PART Oct 06, PART B [id number] [id number] JAMES CE, PATIENT (WNR) (M) B 2012 UP33 2 [place] MEDICARE MEDICARE PART Oct 06, PART A [id number] [phone] JAMES CE, PATIENT (WNR) (M) A 2012 UP33 7 RIAN MEDICARE MEDICARE PART Oct 06, PART B [id number] [phone] JAMES CE, PATIENT (WNR) (M) B 2012 UP33 7 RIAN MEDICARE MEDICARE PART Dec 06, PART D [id number] Lisa HOPKINS ATIENT PART D (M) D 2018 UP33 [phone] RIAN (WNR) MEDICARE MEDICARE PART Oct 06, PART D [id number] [phone] JAMES CE, PATIENT PART D (M) D 2012 UP33 7 RIAN (WNR) MEDICARE PRESCRIPT PART Oct 06, PART D [id number] LAWRE NCE, PATIENT PART D ION D 2012 32A 0 RIAN (WNR) MEDICARE PRESCRIPT PART Oct 06, PART D [id number] [phone] LAWRE NCE, PATIENT PART D ION D 2012 UP33 0 RIAN (WNR) Selected Encounter This section includes the information on record at NH for the Encounter. Date/Time Encounter Type Encounter Description Reason Provider Source E Encounter Template Text not used by [facility]
--- OUTSIDE RECORDS SUMMARY | 2022-02-03 00:54 | XMS_ITS | Encounter Summary ---
:1950 Author Organization [facility] Address [address] [place] [address] Support Name Relationship Address Phone LORI HOPKINS Unavailable [address] [facility] [phone] [place] [address] LORI HOPKINS Unavailable [address] [facility] [phone] [place] [address] Insurance Providers: All historical and current Section [...] Number Silva ANTHZARA PREFERRED STAND May 08 [id number] [phone] PROVIDER SHIVA [phone] RIAN MILLAN FEDERAL ORGANIZAT SELF ION (PPO) [place]BS [place] PREFERRED STAND May 08 [id number] [phone] JAMES CE PATIENT FEP PROVIDER SHIVA 2010 87 123 RIAN MILLAN ORGANGERMANAT INDIV ION (PPO) IDUAL BCBS OF PREFERRED STAND May 08 [id number] [phone] JAMES CE PATIENT MASS PROVIDER SHIVA 2010 87 3 RIAN MILLAN FEDERAL ORGANIZAT SELF ION (PPO) BCBS OF PREFERRED STAND May 08 [id number] [phone] JAMES CE PATIENT MASS FEP PROVIDER SHIVA 2010 87 6 RIAN MILLAN ORGANIZAT SELF ION (PPO) BCBS OF DENTAL STAND May 08, DENTAL [id number] [phone] SANDEEP, PATIENT MASS FEP INSURANCE SHIVA 2010 87 6 RIAN DENTAL BCBS OF ID MEDICARE FEP Dec 06 [id number] SANDEEP PATIENT FEP SECONDARY STAND 2019 [phone] RIAN MILLAN (NO B SHIVA EXC) MEDSE C CAREMARK PRESCRIPT FEP Dec 06, [id number] SANDEEP PATIENT FEP ION ONLY 2014 0 87 [phone] RIAN MILLAN CARELIONEL PRESCRIPT May 08, [id number] [phone] EDUARDO MATTHEW PATIENT FEP ION 2011 0 87 1 RIAN MILLAN PRESCRIPT CAREM May 08, [id number] [phone] EDUARDO ENCEstella, PATIENT FEP BCBS ION ARK 2011 0 87 1 RIAN FEPRX PLAN CAREMARK PRESCRIPT May 08, [id number] [phone] LAWR ENCE PATIENT FEPRX PLAN ION 2011 0 87 331 RIAN MILLAN-F PRESCRIPT FEPRX May 08, [id number] [phone] LA WRENCE PATIENT EP BCBS ION /PT D 2010 0 87 1 RIAN MILLAN [facility] May 18, [id number] [phone] JAMES CE, PATIENT RE JONATAN AL 2003 32 7 RIAN CE ORGANIZ EXPRESS PRESCRIPT CONNE May 18, [id number] [phone] JAMES CE, PATIENT SCRIPTS ION CTICA 2003 [id number] 7 RIAN ([id number]) RE MEDICARE MEDICARE PART Oct 06, PART B [id number] JAMES CE, PATIENT (WNR) (M) B 2012 UP33 2 [place] MEDICARE MEDICARE PART Oct 06, PART A [id number] [phone] JAMES CE, PATIENT (WNR) (M) A 2013 UP33 00 [place] MEDICARE MEDICARE PART Oct 06, PART B [id number] [phone] JAMES CE, PATIENT (WNR) (M) B 2013 UP33 00 [place] MEDICARE MEDICARE PART Oct 06, PART A [id number] Lisa HOPKINS (WNR) (M) A 2013 UP33 [phone] JO[place]PH MEDICARE MEDICARE PART Oct 06, PART A [id number] [phone] JAMES CE, PATIENT (WNR) (M) A 2013 UP33 7 [place] MEDICARE MEDICARE PART Oct 06, PART B [id number] [phone] JAMES CE, PATIENT (WNR) (M) B 2013 UP33 7 RIAN MEDICARE MEDICARE PART Oct 06, PART B [id number] [phone] SANDEEPLisa ATIENT (WNR) (M) B 2012 UP33 [phone] RIAN MEDICARE MEDICARE PART Oct 06, PART A [id number] [phone] JAMES CE, PATIENT (WNR) (M) A 2012 UP33 2 RIAN MEDICARE MEDICARE PART Dec 06, PART D [id number] SANDEEPLisa ATIENT PART D (M) D 2018 UP33 [phone] RIAN (WNR) MEDICARE MEDICARE PART Oct 06, PART D [id number] [phone] JAMES CE, PATIENT PART D (M) D 2012 UP33 7 RIAN (WNR) MEDICARE PRESCRIPT PART Oct 06, PART D [id number] [phone] LAWRE NCE, PATIENT PART D ION D 2012 UP33 0 RIAN (WNR) MEDICARE PRESCRIPT PART Oct 06, PART D [id number] [phone] LAWRE NCE, PATIENT PART D ION D 2012 32A 0 RIAN (WNR) Selected Encounter This section includes the information on record at ID for the Encounter. Date/Time Encounter Type Encounter Reason Provider Source Description Dec 14, 2021 OFFICE O/P EST PRIMARY ICD-10-CM I10 BAM ANDREW 02:00 PM MOD 30-39 MIN CARE/MEDICINE Essential A (primary) hypertension with Provider Comments: Essential hypertension ([facility] [id number]) IHE Encounter Template Text not used by ID Assessments - Encounter Diagnoses This section includes the primary and secondary diagnoses documented for the Encounter. Date/Time Primary/Secondary Diagnosis Name Provider Source Diagnosis Dec 14, 2021 PRIMARY Essential (primary) BAM ANDREW IELD 04:05 PM hypertension A Dec 14, 2021 SECONDARY Headache, BAM ANDREW 04:05 PM unspecified A Plan of Treatment: Future Appointments (+ 6 [...] 13, 2022 02:00 PM [facility] - [facility]ICINE [place] Jan 17, 2022 01:00 PM AMBULATORY - [place] [place] Jan 19, 2022 01:00 PM AMBUL[facility]ORY - [facility]ATRY [place] Feb 03, 2022 01:00 PM AM[facility] - [facility]ATRY [place] Feb 28, 2022 11:00 AM AMBUL[facility]ORY - [facility]RY [place] Vital Signs: All taken on the encounter date This section contains inpatient and outpatient Vital Signs collected on the date of the Encounter. Date/Time Temperature Pulse Blood Respiratory SP02 Pain Height Weight Jakob dy Source Pressure Rate Mass Index Dec 14, 97.2 F 73 165/75 16 /min 97 % 2021 02:15 /min mm[Hg] IELD PM Social History: Smoking Status (Most current) and Tobacco Use (All prior to encounter date) This section includes the most current, and the historical, smoking and tobacco-related health factors from the ID facility where the Encounter took place.Current Smoking Status This section includes the most current smoking, or tobacco-related health factor, from the ID facility where the Encounter took place. Date/Time Current Smoking Status Comment Facility Dec 14, 2021 02:00 PM VA-TOBACCO FORMER USER [facility] Tobacco Use History This section includes a history of the smoking, or tobacco- related health factors, that were collected on or before the date of the Encounter. The data comes from the ID facility where the Encounter took place. Date/Time Smoking Status/Tobacco Use Comment Erica rousseau Dec 14, 2021 02:00 PM VA-TOBACCO QUIT 15 YRS OR [facility] September 17, 2020 02:00 PM VA-TOBACCO FORMER USER [facility] September 17, 2020 02:00 PM VA-TOBACCO QUIT 15 YRS OR [facility] Jan 10, 2020 02:00 PM VA-TOBACCO FORMER USER [facility] Jan 10, 2020 02:00 PM VA-TOBACCO QUIT 15 YRS OR [facility] Mar 23, 2018 02:31 PM VA-TOBACCO FORMER USER [facility] Mar 23, 2018 02:31 PM VA-TOBACCO QUIT 15 YRS OR [place] MORE September 19, 2017 01:43 PM QUIT TOBACCO USE > 7 YEARS [place] September 15, 2016 01:21 PM QUIT TOBACCO USE > 7 YEARS [place] AGO quit 40 years ago May 12, 2015 10:44 AM QUIT TOBACCO USE > 7 YEARS [place] Dec 27, 2006 10:00 AM QUIT TOBACCO USE > 7 YEARS [place] Dec 26, 2005 08:41 AM QUIT TOBACCO USE 1-7 YEARS [place] Aug 11, 2005 08:42 AM QUIT TOBACCO [...] 01:44 PM QUIT TOBACCO USE 1-7 YEARS [place] Apr 25, 2001 03:26 PM NON-TOBACCO USER [facility] Stopped tobacco 3 years ago September 12, 2000 03:24 PM HISTORY OF SMOKING [place] HUI Quit cigaretts 2 years ago Encounter Notes: All associated encounter notes This section contains the clinical notes associated to the Encounter. Date/Time Encounter Note(s) Provider Source Dec 14, 2021 03:16 PM PRIMARY CARE NURSE PRACTITIONER OUTPAT IENT NOTE: BAM ANDREW LOCAL TITLE: NURSE PRACTITIONER OUTPATIENT NOTE STANDARD TITLE: PRIMARY CARE NURSE PRACTITIONER OUTPATIENT NOTE DATE OF NOTE: DEC 14, 2021@15:16 ENTRY DATE: DEC 14, 2021@15:16:20 AUTHOR: BAM ANDREW EXP COSIGNER: URGENCY: STATUS: COMPLETED NURSE PRACTITIONER OUTPATIENT NOTE Has ADDE NDA SICK CALL VISIT RIAN HOPKINS, is a 71 yo [place] MALE who presents at [facility] sick call with: Persistent daily headaches. HPI: 71-year-old male with multiple comorbidities inc luding poorly controlled insulin-dependent type 2 DM, CKD stage III, obes ity (BMI 38), hyperlipidemia, RLS, chronic pain syndrome, GERD, HTN, CAD, and osteoarthritis presented to the clinic reporting daily headaches. Headache begin s in the back of the head and progresses to the frontal. No visual disturbance . Denies any aura. No dizziness or vertigo. No increased lower extremi ty weakness or bowel/bladder incontinence. He has no headache in the morning but as the day progresses, the headache occurs. He does describe a great deal o f life stressors, I have PTSD. Tylenol does not help. He does not take a ny NSAIDs due to underlying CKD. The patient is followed by tamela mck[facility] providers including a non-VA PCP: Dr. Anup Chacon in [place]. [facility] PCP: ROMULO CHONG VITAL SIGNS: Temperature 97.2 F [36.2 C] (12/14/2021 14:15) Blood Pressure 165/75 (12/14/2021 14:15) Pulse 73 (12/14/2021 14:15) Respiration 16 (12/14/2021 14:15) Pain 7 (09/20/2018 13:44) BMI BMI: 38.2 Weight 251 lb [113.85 kg] (03/25/2019 13:42) Pulse Oximetry 97% (12/14/2021 14:15) Review of Systems: A 12 point review of systems is negative except as noted in the HPI. EXAMINATION General: Older, poorly kempt in no obvio us distress. Mental Status: Alert and oriented x4. Head: Normocephalic. Atraumatic. Eyes: PERRLA. EOMI. Anicteric sclerae. ENT: Moist oral mucosa. Neck: Supple. No LAD. Lungs: CTA. Normal chest excursion. Eupneic resp irations. CV: Heart tones S1, S2, RRR. No murmur. GI: Abdomen is obese, soft, and nontender. No pa lpable mass. : No CVA tenderness. Ext: Right brace in place for foot drop. No jung s deformities. Neuro: CN II through XII grossly intact. Normal speech. Uses a rolling seat walker. Integument: Skin is warm and dry; fair turgor. N o rashes or lesions on visible areas. Psych: Normal mood and affect. Normal judgment. ASSESSMENT/PLAN Chronic headache and poorly controlled hypertens ion: Differential includes chronic tension headache versus chronic migraine . Possibly related to poorly controlled hypertension. Blood pressure elevated on multiple measurements in the clinic around 168/90 eac h time. First goal would be better BP control prior to any intervention for headache specific sympto ms. Currently maintained on multiple agents for BP control including losarta n 150 mg daily, metoprolol succinate 200 mg daily, amlo dipine 5 mg daily, and furosemide 40 mg twice daily. These medications are prescribed by 2 different providers. [facility] by the [facility]. I recommended an increase in amlodipine to 10 mg daily. Return to clinic in 1 month to recheck blood pre ssure and evaluate any improvement in headache with better control. If no improvement in BP control, would add clonidine initially orally with plan t o transition to TTS after effective dosing realized. In addition, we will fax this office visit note to his non-VA provider, Dr. Anup Chacon in order to avoid fragmented care. >> MEDICATIONS Reviewed with >> CLINICAL REMINDERS NOT ADDRESSED d/t SICK ANTOINE L Defer to PCP/PACT Team FOLLOW UP: RTC Below & sooner PRN UPCOMING APPOINTMENTS: 01/13/2022 14:00 CWM/SO/SICK CALL BRUSH MACHINE SETTER 01/17/2022 13:00 CWM/SO/TH/VVC/TERESITA/TREE 35 minutes spent in patient evaluation, data rev iew, patient education, and care coordination. /justine/ BAM ANDREW NP NURSE PRACTITIONER Signed: 12/14/2021 16:04 12/14/2021 ADDENDUM STATUS: COMPLETED Team: Please fax this office visit note to Dr. Farhana Chacon in [facility]. Thank you /virgilio ANDREW NP NURSE PRACTITIONER Signed: 12/14/2021 16:06 Receipt Acknowledged By: 12/15/2021 08:29 /virgilio VANEGAS * AWAITING SIGNATURE * REJI SHABAZZ 12/15/2021 ADDENDUM STATUS: COMPLETED Fund Raiser sent notes. /virgilio VANEGAS Signed: 12/15/2021 08:29 Dec 14, 2021 02:16 PM PREVENTIVE MEDICINE NURSING NOTE: SHAE RENO LOCAL TITLE: CLINICAL REMINDERS/NURSING STANDARD TITLE: PREVENTIVE MEDICINE NURSING NOTE DATE OF NOTE: DEC 14, 2021@14:16 ENTRY DATE: DEC 14, 2021@14:16:51 AUTHOR: SHAE MAURER EXP COSIGNER: URGENCY: STATUS: COMPLETED Tobacco Use Screening: The patient is a former tobacco user. The patient quit fifteen or more years ago. /justine/ SHAE MAURER LPN Licensed Practical Nurse Signed: 12/14/2021 14:17
--- OUTSIDE RECORDS SUMMARY | 2022-02-03 00:55 | XMS_ITS | Encounter Summary ---
:1950 Author Organization Department [facility] rs Address [address] [place] [address] Support Name Relationship Address Phone LORI HOPKINS Unavailable [address] [place] [address] [phone] [place] [address] LORI HOPKINS Unavailable [address] [facility] [place] [address] Insurance Providers: All historical and current Section [...] Number Silva JARRED PREFERRED STAND May 08 [id number] PROVIDER SHIVA 2011 [id number] RIAN MILLAN FEDERAL ORGANIZAT SELF ION (PPO) BCBS [place] PREFERRED STAND May 08 [id number] [phone] JAMES CE PATIENT FEP PROVIDER SHIVA [phone] RIAN MILLAN ORGANGERMANAT INDIV ION (PPO) IDUAL BCBS OF PREFERRED STAND May 08 [id number] [phone] JAMES CE PATIENT MASS PROVIDER SHIVA 2010 87 3 RIAN MILLAN FEDERAL ORGANIZAT SELF ION (PPO) BCBS OF PREFERRED STAND May 08 [id number] [phone] JAMES CE PATIENT MASS FEP PROVIDER SHIVA 2010 87 6 RIAN MILLAN ORGANIZAT SELF ION (PPO) BCBS OF DENTAL STAND May 08, DENTAL [id number] [phone] SANDEEP, PATIENT MASS FEP INSURANCE SHIVA 2010 87 6 RIAN DENTAL [place]BS OF [place] MEDICARE FEP Dec 06 [id number] 800 SANDEEP PATIENT FEP SECONDARY STAND 2019 [phone] RIAN MILLAN (NO B SHIVA EXC) MEDSE C [place] PRESCRIPT FEP Dec 06, [id number] SANDEEP PATIENT FEP ION ONLY 2014 0 [phone] RIAN MILLAN [place] PRESCRIPT May 08, [id number] [phone] EDUARDO ENCEstella PATIENT FEP ION 2011 0 87 1 RIAN MILLAN PRESCRIPT CAREM May 08, [id number] [phone] EDUARDO ENCEstella, PATIENT FEP BCBS ION ARK 2011 0 87 1 RIAN FEPRX PLAN [place] PRESCRIPT May 08, [id number] [phone] LAWR ENCE PATIENT FEPRX PLAN ION 2011 0 [id number] 331 RIAN MILLAN-F PRESCRIPT FEPRX May 08, [id number] [phone] LA WRENCE PATIENT EP BCBS ION /PT D 2010 0 87 1 RIAN MILLAN [facility] May 18, [id number] [phone] JAMES CE, PATIENT RE [place] 2003 32 7 RIAN CE ORGANIZ EXPRESS PRESCRIPT CONNE May 18, [id number] [phone] JAMES CE, PATIENT SCRIPTS ION CTICA 2003 [id number] 7 RIAN ([id number]) RE MEDICARE MEDICARE PART Oct 06, PART A [id number] JAMES CE, PATIENT (WNR) (M) A 2012 UP33 00 [place] MEDICARE MEDICARE PART Oct 06, PART A [id number] JAMES CE, PATIENT (WNR) (M) A 2012 UP33 2 [place] MEDICARE MEDICARE PART Oct 06, PART B [id number] [phone] JAMES CE, PATIENT (WNR) (M) B 2013 UP33 00 [place] MEDICARE MEDICARE PART Oct 06, PART B [id number] [id number] JAMES CE, PATIENT (WNR) (M) B 2012 UP33 2 [place] MEDICARE MEDICARE PART Oct 06, PART A [id number] Lisa HOPKINS (WNR) (M) A 2012 UP77 [id number] [place] MEDICARE MEDICARE PART Oct 06, PART A [id number] JAMES CE, PATIENT (WNR) (M) A 2012 UP33 7 RIAN MEDICARE MEDICARE PART Oct 06, PART B [id number] [phone] JAMES CE, PATIENT (WNR) (M) B 2012 UP33 7 RIAN MEDICARE MEDICARE PART Oct 06, PART B [id number] Lisa HOPKINS ATIENT (WNR) (M) B 2012 UP33 [phone] RIAN MEDICARE MEDICARE PART Dec 06, PART D [id number] 800 SANDEEP P ATIENT PART D (M) D 2018 UP33 [phone] RIAN (WNR) MEDICARE MEDICARE PART Oct 06, PART D [id number] [phone] JAMES CE, PATIENT PART D (M) D 2012 UP33 7 RIAN (WNR) MEDICARE PRESCRIPT PART Oct 06, PART D [id number] LAWRE NCE, PATIENT PART D ION D 2012 32A 0 RIAN (WNR) MEDICARE PRESCRIPT PART Oct 06, PART D [id number] LAWRE NCE, PATIENT PART D ION D 2012 UP33 0 RIAN (WNR) Selected Encounter This section includes the information on record at NM for the Encounter. Date/Time Encounter Type Encounter Description Reason Provider Source Dec 20, 2021 08:08 Outpatient Encounter PRIMARY CARE/MEDICINE AM [facility] Encounter [...] 13, 2022 02:00 PM AMBULATORY - MEDICINE [place] Jan 17, 2022 01:00 PM AMBULATORY - PSYCHIATRY [place] Jan 19, 2022 01:00 PM AMBULATORY - PSYCHIATRY [place] Feb 03, 2022 01:00 PM AMBULATORY PSYCHIATRY [place] Feb 28, 2022 11:00 AM [facility] Lab Results: +/- 30 days of the encounter This section includes the Chemistry and Hematology Lab Results on record with NM for the patient. Radiology Reports and Pathology Reports are provided separately, in subsequent sections.Lab Results This section contains the Chemistry/Hematology Results that were resulted 30 days before or 30 daysafter the date of the Encounter. Date/Time Source Result Type Result - Unit Interpretation Reference Range Comment Jan 14, 2022 02:05 PM [place] MAGNESIUM Specimen Type: SERUM No comment enter ed. Ordering Provid er: BAM ANDREW Report Released Date/Time: Dec 14, 2021 03:11 PM Reporting Lab: [facility] [address] [facility] [address] Performing Lab: [address] [address] MAGNESIUM 1.8 1.6-2.6 Jan 14, 2022 02:05 PM [place] CALCIUM Specimen Type: SERUM No comment enter ed. Ordering Provid er: BAM ANDREW Report Released Date/Time: Dec 14, 2021 03:11 PM Reporting Lab: [facility] [address] [facility] [address] Performing Lab: [facility] [address] [facility] [address] CALCIUM 8.8 8.5-10.2 Jan 14, 2022 02:05 PM [place] VITAMIN D (25-[place]) Specime n Type: SERUM No comment enter ed. Ordering Provid er: BAM ANDREW Report Released Date/Time: Dec 14, 2021 03:11 PM Reporting Lab: [facility] [address] [facility] [address] Performing Lab: [address] [address] VITAMIN D (25-[place]) 14 L 20-50 Jan 14, 2022 [place] HEMOGLOBIN A1C Specimen Type: BLOOD 02:05 PM PANEL Comment: Values obtained from A1C measurements can vary. For typical A1C assays, a reported value of 7.0 could actually be between 6.72 and 7.28 if measured by a reference method. A reported value of 9 .0 could actuall y be between 8.73 and 9.27. Ref: [email or web address] Ordering Provid er: BAM ANDREW Report Released Date/Time: Dec 14, 2021 03:11 PM Reporting Lab: [facility] [place] [facility] [address] [facility] [address] Performing Lab: [place] [facility] [facility] [address] [facility] [address] HEMOGLOBIN A1C 9.8 H 4.0-5.6 Jan 14, 2022 02:05 PM [place] TSH Specimen Type: SERUM No comment enter ed. Ordering Provid er: BAM ANDREW Report Released Date/Time: Dec 14, 2021 03:11 PM Reporting Lab: [facility] [place] [facility] [address] [facility] [address] Performing Lab: [facility] [place] [facility] [address] [facility] [address] TSH 1.47 0.35-5.00 Jan 14, 2022 02:05 PM [place] SED RATE, AUTOMATED Speci men Type: BLOOD No comment enter ed. Ordering Provid er: BAM ANDREW Report Released Date/Time: Dec 14, 2021 03:11 PM Reporting Lab: [facility] [place] [facility] [address] [facility] [address] Performing Lab: [facility] [place] [facility] [address] [facility] [address] SED RATE, AUTOMATED 20 0-20 Jan 14, 2022 02:05 PM [place] LIPID PANEL FASTING Speci men Type: SERUM No comment enter ed. Ordering Provid er: BAM ANDREW Report Released Date/Time: Dec 14, 2021 03:11 PM Reporting Lab: [facility] [place] [facility] [address] [facility] [address] Performing Lab: [facility] [place] [facility] [address] [facility] [address] CHOLESTEROL 180 <7-199 TRIGLYCERIDE 132 0-150 LDL calculated 107 0-129 CHOL/HDL 3.8 HDL CHOLESTEROL 47 40-60 Jan 14, 2022 02:05 PM [place] LIVER FUNCTION Specimen Type: SERUM No comment enter ed. Ordering Provid er: BAM ANDREW Report Released Date/Time: Dec 14, 2021 03:11 PM Reporting Lab: [facility] [address] [facility] [address] Performing Lab: [address] [address] PROTEIN,TOTAL 6.1 6.0-8.3 ALBUMIN 2.9 L 3.5-5.0 ALKALINE PHOSPHATASE 49 40-150 AST 14 5-34 ALT 12 <6-55 BILIRUBIN, TOTAL 0.4 0.2-1.2 Jan 14, 2022 02:05 PM [place] BASIC METABOLIC PANEL Spe cimen Type: SERUM (fasting) No comment enter ed. Ordering Provid er: BAM ANDREW Report Released Date/Time: Dec 14, 2021 03:11 PM Reporting Lab: [facility] [address] [facility] [address] Performing Lab: [address] [address] UREA NITROGEN 18 7-25 GLUCOSE 165 H 65-100 SODIUM 139 135-145 POTASSIUM 4.1 3.5-5.0 CHLORIDE 105 100-110 CO2 27 20-30 CREATININE, Serum 1.59 H 0.50-1.40 eGFR(CKD-EPI 2020) 46 L >60 Jan 14, 2022 02:05 PM [place] CBC AND DIFF (AUTO) Speci men Type: BLOOD No comment enter ed. Ordering Provid er: BAM ANDREW Report Released Date/Time: Dec 14, 2021 03:11 PM Reporting Lab: [facility] [address] [facility] [address] Performing Lab: [address] [address] WBC 7.22 4.50-11.00 RBC 4.58 4.23-5.66 HGB 13.4 12.8-17 HCT 39.7 39.2-50.4 MCV 86.7 82-99 MCHC 33.8 30.8-35.1 PLT 247 140-360 RDW-CV 13.0 12.0-16.0 [place], Abs 0.71 0.30-1.10 MCH 29.3 26.2-32.6 Neut % 48.5 Lymph % 34.9 [place] % 9.8 Eos % 5.8 Baso % 0.7 Neut, Abs 3.50 2.20-7.60 Lymph, Abs 2.52 1.00-3.20 Eos, Abs 0.42 0.03-0.44 Baso, Abs 0.05 0.01-0.13 Immature Gran % 0.3 Immature Gran, Abs 0.02 0.00-0.06 Encounter Notes: All associated encounter notes This section contains the clinical notes associated to the Encounter. Date/Time Encounter Note(s) Provider Source Dec 20, 2021 08:08 AM MEDICATION MGT NOTE: MAGNUS SANDERSON [facility] TITLE: OUTPATIENT MEDICATION REQUEST STANDARD TITLE: MEDICATION MGT NOTE DATE OF NOTE: DEC 20, 2021@08:08 ENTRY DATE: DEC 20, 2021@08:08:22 AUTHOR: MAGNUS SANDERSON COSIGNER: URGENCY: STATUS: COMPLETED Medication Request Date of Request: Dec Please renew and mail. CYCLOSPORINE EMULSION,OPH 0.05% INSTILL 1 DROP INTO EACH EYE TWICE DAILY Quantity: 30 Refills: 4 /es/ Magnus Sanderson RN Registered Nurse Signed: 12/20/2021 08:08 Receipt Acknowledged By: 12/20/2021 08:09 /es/ ASIF ALDANA PA-C STAFF PHYSICIAN 4TH GRADE MATH TEACHER for ROMULO CHONG
--- OUTSIDE RECORDS SUMMARY | 2022-02-03 00:55 | XMS_ITS | Encounter Summary ---
:1950 Author Organization Department [facility] rs Address [address] [place] [address] Support Name Relationship Address Phone LORI HOPKINS Unavailable [address] [place] [address] [place] [address] LORI HOPKINS Unavailable [address] [facility] [phone] [place] [address] Insurance Providers: All historical and current Section [...] Number Silva JARRED PREFERRED STAND May 08 [id number] PROVIDER SHIVA 2011 [id number] RIAN MILLAN FEDERAL ORGANIZAT SELF ION (PPO) [place]BS [place] PREFERRED STAND May 08 [id number] [phone] JAMES CE PATIENT FEP PROVIDER SHIVA 2010 87 123 RIAN MILLAN ORGANGERMANAT INDIV ION (PPO) IDUAL BCBS OF PREFERRED STAND May 08 [id number] [phone] JAMES CE PATIENT MASS PROVIDER SHIVA 2010 87 3 RIAN MILLAN FEDERAL ORGANIZAT SELF ION (PPO) BCBS OF PREFERRED STAND May 08 [id number] [phone] JAMES CE PATIENT MASS FEP PROVIDER SHIVA 2010 87 6 RIAN MILLAN ORGANIZAT SELF ION (PPO) BCBS OF DENTAL STAND May 08, DENTAL [id number] [phone] SANDEEP, PATIENT MASS FEP INSURANCE SHIVA 2010 87 6 RIAN DENTAL BCBS OF [place] MEDICARE FEP Dec 06 [id number] SANDEEP PATIENT FEP SECONDARY STAND 2019 [phone] RIAN MILLAN (NO B SHIVA EXC) MEDSE C [place] PRESCRIPT FEP Dec 06, [id number] SANDEEP PATIENT FEP ION ONLY 2014 0 [phone] RIAN MILLAN [place] PRESCRIPT May 08, [id number] [phone] EDUARDO ENCEstella PATIENT FEP ION 2011 0 87 1 RIAN MILLAN PRESCRIPT CAREM May 08, [id number] [phone] EDUARDO ENCEstella, PATIENT FEP BCBS ION ARK 2011 0 87 1 RIAN FEPRX PLAN [place] PRESCRIPT May 08, [id number] [phone] LAWR ENCE PATIENT FEPRX PLAN ION 2011 0 87 331 RIAN MILLAN-F PRESCRIPT FEPRX May 08, [id number] [phone] LA WRENCE PATIENT EP BCBS ION /PT D 2010 0 87 1 RIAN MILLAN [facility] May 18, [id number] [phone] JAMES CE, [facility]IENT [facility] 2003 32 7 RIAN CE ORGANIZ EXPRESS PRESCRIPT CONNE May 18, [id number] [id number] [phone] JAMES CE, PATIENT SCRIPTS ION CTICA 2003 [id number] 7 RIAN ([id number]) RE MEDICARE MEDICARE PART Oct 06, PART A [id number] [phone] JAMES CE, PATIENT (WNR) (M) A 2012 UP33 2 [place] MEDICARE MEDICARE PART Oct 06, PART B [id number] [id number] JAMES CE, PATIENT (WNR) (M) B 2012 UP33 2 [place] MEDICARE MEDICARE PART Oct 06, PART A [id number] [phone] JAMES CE, PATIENT (WNR) (M) A 2013 UP33 00 [place] MEDICARE MEDICARE PART Oct 06, PART B [id number] [phone] JAMES CE, PATIENT (WNR) (M) B 2012 UP33 00 [place] MEDICARE MEDICARE PART Oct 06, PART A [id number] Lisa HOPKINS (WNR) (M) A 2012 UP42 [id number] [place] MEDICARE MEDICARE PART Oct 06, PART A [id number] [phone] JAMES CE, PATIENT (WNR) (M) A 2012 UP33 7 RIAN MEDICARE MEDICARE PART Oct 06, PART B [id number] [phone] JAMES CE, PATIENT (WNR) (M) B 2012 UP33 7 RIAN MEDICARE MEDICARE PART Oct 06, PART B [id number] 800 Lisa HOPKINS ATIENT (WNR) (M) B 2012 UP33 [phone] RIAN MEDICARE MEDICARE PART Dec 06, PART D [id number] Lisa HOPKINS ATIENT PART D (M) D 2018 UP33 [phone] RIAN (WNR) MEDICARE MEDICARE PART Oct 06, PART D [id number] [phone] JAMES CE, PATIENT PART D (M) D 2012 UP33 7 RIAN (WNR) MEDICARE PRESCRIPT PART Oct 06, PART D [id number] LAWRE NCE, PATIENT PART D ION D 2012 32A 0 RIAN (WNR) MEDICARE PRESCRIPT PART Oct 06, PART D [id number] [phone] LAWRE NCE, PATIENT PART D ION D 2012 UP33 0 RIAN (WNR) Selected Encounter This section includes the information on record at PA for the Encounter. Date/Time Encounter Type Encounter Reason Provider Source Description Dec 20, 2021 07:07 Outpatient PRIMARY MARIBETH SANDERSON AM Encounter CARE/MEDICINE E DAVINA SCHMIDT Encounter Template Text not used by PA Plan of Treatment: Future Appointments (+ 6 months) and Future Tests (+/- 45 days) The Plan of Treatment section includes future care activities for the patient from all PA treatmentfacilities. This section includes future appointments and future orders which are active, pending orscheduled.Future Appointments This section includes appointments that were scheduled to occur 6 months from the date of the Encounter, up to a maximum of 20 appointments. The data comes from all PA treatment facilities. Appointment Date/Time Appointment Type Appointment Facili ty Name Jan 13, 2022 02:00 PM AMBULATORY - MEDICINE [facility] Jan 17, 2022 01:00 PM AMBULATORY - PSYCHIATRY [facility] Jan 19, 2022 01:00 PM AMBULATORY - [facility]CHIATRY [facility] Feb 03, 2022 01:00 PM AMBULATORY - [facility]YCHIATRY [facility] Feb 28, 2022 11:00 AM AMBULATORY PSYCHIATRY [facility] Lab Results: +/- 30 days of the encounter This section includes the Chemistry and Hematology Lab Results on record with PA for the patient. Radiology Reports and Pathology Reports are provided separately, in subsequent sections.Lab Results This section contains the Chemistry/Hematology Results that were resulted 30 days before or 30 daysafter the date of the Encounter. Date/Time Source Result Type Result - Unit Interpretation Reference Range Comment Jan 14, 2022 02:05 PM [facility] CALCIUM Specimen Type: SERUM No comment enter ed. Ordering Provid er: BAM ANDREW Report Released Date/Time: Dec 14, 2021 03:11 PM Reporting Lab: [facility] [place] [facility] [address] [facility] [address] Performing Lab: [place] [facility] [place] [facility] [address] [facility] [address] CALCIUM 8.8 8.5-10.2 Jan 14, 2022 02:05 PM [facility] MAGNESIUM Specimen Type: SERUM No comment enter ed. Ordering Provid er: BAM ANDREW Report Released Date/Time: Dec 14, 2021 03:11 PM Reporting Lab: [facility] [place] [place] [facility] [address] [facility] [address] Performing Lab: [facility] [place] [place] [facility] [address] [facility] [address] MAGNESIUM 1.8 1.6-2.6 Jan 14, 2022 02:05 PM [facility] VITAMIN D (25-[place]) Specime n Type: SERUM No comment enter ed. Ordering Provid er: BAM ANDREW Report Released Date/Time: Dec 14, 2021 03:11 PM Reporting Lab: [facility] [place] [place] [facility] [address] [facility] [address] Performing Lab: [facility] [place] [place] [facility] [address] [facility] [address] VITAMIN D (25-OH) 14 L 20-50 Jan 14, 2022 02:05 PM [facility] TSH Specimen Type: SERUM No comment enter ed. Ordering Provid er: BAM ANDREW Report Released Date/Time: Dec 14, 2021 03:11 PM Reporting Lab: [facility] [place] [place] [facility] [address] [facility] [address] Performing Lab: [place] [facility] [place] [facility] [address] [facility] [address] TSH 1.47 0.35-5.00 Jan 14, 2022 [facility] HEMOGLOBIN A1C Specimen Type: BLOOD 02:05 PM [...] Dec 14, 2021 03:11 PM Reporting Lab: [facility] [address] [facility] [address] Performing Lab: [facility] [address] [facility] [address] HEMOGLOBIN A1C 9.8 H 4.0-5.6 Jan 14, 2022 02:05 PM [facility] SED RATE, AUTOMATED Speci men Type: BLOOD No comment enter ed. Ordering Provid er: BAM ANDREW Report Released Date/Time: Dec 14, 2021 03:11 PM Reporting Lab: [facility] [address] [facility] [address] Performing Lab: [facility] [address] [facility] [address] SED RATE, AUTOMATED 20 0-20 Jan 14, 2022 02:05 PM [facility] LIPID PANEL FASTING Speci men Type: SERUM No comment enter ed. Ordering Provid er: BAM ADNREW Report Released Date/Time: Dec 14, 2021 03:11 PM Reporting Lab: [facility] [address] [facility] [address] Performing Lab: [facility] [address] [facility] [address] CHOLESTEROL 180 <7-199 TRIGLYCERIDE 132 0-150 LDL calculated 107 0-129 CHOL/HDL 3.8 HDL CHOLESTEROL 47 40-60 Jan 14, 2022 02:05 PM [place] LIVER FUNCTION Specimen Type: SERUM No comment enter ed. Ordering Provid er: BAM ANDREW Report Released Date/Time: Dec 14, 2021 03:11 PM Reporting Lab: [facility] [address] [facility] [address] Performing Lab: [address] [address] PROTEIN,TOTAL 6.1 6.0-8.3 ALBUMIN 2.9 L 3.5-5.0 ALKALINE PHOSPHATASE 49 40-150 AST 14 5-34 ALT 12 <6-55 BILIRUBIN, TOTAL 0.4 0.2-1.2 Jan 14, 2022 02:05 PM [place] BASIC METABOLIC PANEL Spe cimen Type: SERUM (fasting) No comment enter ed. Ordering Provid er: BAM ANDREW Report Released Date/Time: Dec 14, 2021 03:11 PM Reporting Lab: [address] [address] Performing Lab: [address] [address] UREA NITROGEN 18 7-25 GLUCOSE 165 H 65-100 SODIUM 139 135-145 POTASSIUM 4.1 3.5-5.0 CHLORIDE 105 100-110 CO2 27 20-30 CREATININE, Serum 1.59 H 0.50-1.40 eGFR(CKD-EPI 2020) 46 L >60 Jan 14, 2022 02:05 PM [place] CBC AND DIFF (AUTO) Speci men Type: BLOOD No comment enter ed. Ordering Provid er: BAM ANDREW Report Released Date/Time: Dec 14, 2021 03:11 PM Reporting Lab: [address] [address] Performing Lab: [address] [address] WBC 7.22 4.50-11.00 RBC 4.58 4.23-5.66 HGB 13.4 12.8-17 HCT 39.7 39.2-50.4 MCV 86.7 82-99 MCHC 33.8 30.8-35.1 PLT 247 140-360 RDW-CV 13.0 12.0-16.0 [place], Abs 0.71 0.30-1.10 MCH 29.3 26.2-32.6 Neut % 48.5 Lymph % 34.9 [place] % 9.8 Eos % 5.8 Baso % 0.7 Neut, Abs 3.50 2.20-7.60 Lymph, Abs 2.52 1.00-3.20 Eos, Abs 0.42 0.03-0.44 Baso, Abs 0.05 0.01-0.13 Immature Gran % 0.3 Immature Gran, Abs 0.02 0.00-0.06 Encounter Notes: All associated encounter notes This section contains the clinical notes associated to the Encounter. Date/Time Encounter Note(s) Provider Source Dec 20, 2021 07:07 AM PRIMARY CARE SECURE MESSAGING: MAGNUS SANDERSON [place] [facility] LOCAL TITLE: PRIMARY CARE SECURE MESSAGING [facility] STANDARD TITLE: PRIMARY CARE SECURE MESSAGING DATE OF NOTE: DEC 20, 2021@07:07 ENTRY DATE: DEC 20, 2021@08:07:55 AUTHOR: MAGNUS SANDERSON EXP COSIGNER: URGENCY: STATUS: COMPLETED ------Original Message Sent: 12/17/2021 07:10 PM ET From: RIAN HOPKINS To: ARLETTEO_PRIMARY CARE_[facility] Subject: Medication:CYCLOSPORINE 0.05% This med is not on my reorde r list can you have them reinstate it please . [id number] Juan Carlos saxena/ Magnus Sanderson RN Registered Nurse Signed: 12/20/2021 08:07
--- OUTSIDE RECORDS SUMMARY | 2022-02-03 00:56 | XMS_ITS ---
:1950 Author Organization Department [facility] rs Address [address] [place] [address] Support Name Relationship Address Phone LORI HOPKINS Unavailable [address] [place] [address] [place] [address] LORI HOPKINS Unavailable [address] [place] [address] Insurance Providers: All historical and current Section [...] Number Silva JARRED PREFERRED STAND May 08 [id number] [phone] PROVIDER SHIVA [phone] RIAN MILLAN FEDERAL ORGANIZAT SELF ION (PPO) BCBS [place] PREFERRED STAND May 08 [id number] [phone] JAMES CE PATIENT FEP PROVIDER SHIVA [phone] RIAN MILLAN ORGANGERMANAT INDIV ION (PPO) IDUAL BCBS OF PREFERRED STAND May 08 [id number] [phone] JAMES CE PATIENT MASS PROVIDER SHIVA 2010 87 3 RIAN MILLAN FEDERAL ORGANIZAT SELF ION (PPO) BCBS OF PREFERRED STAND May 08 [id number] [phone] JAMES CE PATIENT MASS FEP PROVIDER SHIVA 2010 87 6 RIAN MILLAN ORGANIZAT SELF ION (PPO) BCBS OF DENTAL STAND May 08, DENTAL [id number] [phone] SANDEEP, PATIENT MASS FEP INSURANCE SHIVA 2010 87 6 RIAN DENTAL BCBS OF [place] MEDICARE FEP Dec 06 [id number] SANDEEP PATIENT FEP SECONDARY STAND 2019 [phone] RIAN MILLAN (NO B SHIVA EXC) MEDSE C CAREMARK PRESCRIPT FEP Dec 06, [id number] SANDEEP PATIENT FEP ION ONLY 2014 0 [phone] RIAN MILLAN CARELIONEL PRESCRIPT May 08, [id number] [phone] EDUARDO ENCEstella PATIENT FEP ION 2011 0 87 1 RIAN MILLAN PRESCRIPT CAREM May 08, [id number] [phone] EDUARDO ENCEstella, PATIENT FEP BCBS ION ARK 2011 0 87 1 RIAN FEPRX PLAN CAREMARK PRESCRIPT May 08, [id number] [phone] LAWR ENCE PATIENT FEPRX PLAN ION 2011 0 [phone] RIAN MILLAN-F PRESCRIPT FEPRX May 08, [id number] [phone] LA WRENCE PATIENT EP BCBS ION /PT D 2010 0 87 1 RIAN MILLAN [facility] May 18, [id number] [phone] JAMES CE, [facility] 32 7 RIAN CE ORGANIZ EXPRESS PRESCRIPT CONNE May 18, [id number] [phone] JAMES CE, PATIENT SCRIPTS ION CTICA 2003 [id number] RIAN ([id number]) RE MEDICARE MEDICARE PART Oct 06, PART B [id number] JAMES CE, PATIENT (WNR) (M) B 2012 UP33 2 [place] MEDICARE MEDICARE PART Oct 06, PART A [id number] JAMES CE, PATIENT (WNR) (M) A 2013 UP33 00 [place] MEDICARE MEDICARE PART Oct 06, PART B [id number] JAMES CE, PATIENT (WNR) (M) B 2013 UP33 00 [place] MEDICARE MEDICARE PART Oct 06, PART A [id number] Lsia HOPKINS (WNR) (M) A 2013 UP33 [id number] [place] MEDICARE MEDICARE PART Oct 06, PART A [id number] JAMES CE, PATIENT (WNR) (M) A 2013 UP33 7 [place] MEDICARE MEDICARE PART Oct 06, PART B [id number] JAMES CE, PATIENT (WNR) (M) B 2012 UP33 7 RIAN MEDICARE MEDICARE PART Oct 06, PART B [id number] Lisa HOPKINS ATIENT (WNR) (M) B 2012 UP33 [phone] RIAN MEDICARE MEDICARE PART Oct 06, PART A [id number] JAMES CE, PATIENT (WNR) (M) A 2012 UP33 2 RIAN MEDICARE MEDICARE PART Dec 06, PART D [id number] Lisa HOPKINS ATIENT PART D (M) D 2018 UP33 [phone] RIAN (WNR) MEDICARE MEDICARE PART Oct 06, PART D [id number] [phone] JAMES CE, PATIENT PART D (M) D 2012 UP33 7 RIAN (WNR) MEDICARE PRESCRIPT PART Oct 06, PART D [id number] LAWRE NCE, PATIENT PART D ION D 2012 32A 0 RIAN (WNR) MEDICARE PRESCRIPT PART Oct 06, PART D [id number] LAWRE NCE, PATIENT PART D ION D 2012 UP33 0 RIAN (WNR) Selected Encounter This section includes the information on record at [place] for the Encounter. Date/Time Encounter Type Encounter Description Reason Provider Source Nov 11, 2021 12:00 Outpatient Encounter EVENT (HISTORICAL) AM [facility] Encounter Template Text not used by [place] Plan of Treatment: Future Appointments (+ 6 months) and Future Tests (+/- 45 days) The Plan of Treatment section includes future care activities for the patient from all [place] treatmentfacilities. This section includes future appointments and future orders which are active, pending orscheduled.Future Appointments This section includes appointments that were scheduled to occur 6 months from the date of the Encounter, up to a maximum of 20 appointments. The data comes from all [place] treatment facilities. Appointment Date/Time Appointment Type Appointment Facili ty Name Dec 02, 2021 01:30 PM AMBULATORY - [facility]IATRY [facility] Dec 07, 2021 01:00 PM AMBULAT[place] [facility] Dec 09, 2021 01:00 PM AM[facility] Dec 14, 2021 02:00 PM [facility] Jan 13, 2022 02:00 PM [facility] Jan 17, 2022 01:00 PM [facility] Jan 19, 2022 01:00 PM [facility] Feb 03, 2022 01:00 PM [facility] Feb 28, 2022 11:00 AM AMBULATORY - [facility]RY [facility] Encounter Notes: All associated encounter notes This section contains the clinical notes associated to the Encounter. Date/Time Encounter Note(s) Provider Source Nov 11, 2021 12:00 AM NONVA NOTE: [facility] LOCAL TITLE: NON-VA OUTPATIENT NOTES [facility] STANDARD TITLE: NONVA NOTE DATE OF NOTE: NOV 11, 2021 ENTRY DATE: JAN 05 022@05:28:32 AUTHOR: STEFANO LOVE MA EXP COSIGNER: URGENCY: STATUS: COMPLETED VistA Imaging - Scanned Document SCANNED DOCUMENT SIGNATURE NOT REQUIRED Electronically Filed: 01/05/2022 by: STEFANO LOVE [employer] BANK MANAGER
--- OUTSIDE RECORDS SUMMARY | 2022-02-03 00:56 | XMS_ITS | Encounter Summary ---
:1950 Author Organization Department [facility] rs Address [address] [place] [address] Support Name Relationship Address Phone LORI HPOKINS Unavailable [address] [place] [address] [place] [address] LORI HOPKINS Unavailable [address] [place] [address] Insurance Providers: All historical and current Section [...] Number Silva JARRED PREFERRED STAND May 08 [id number] [phone] PROVIDER SHIVA [phone] RIAN MILLAN FEDERAL ORGANIZAT SELF ION (PPO) [place] PREFERRED STAND May 08 [id number] [phone] JAMES CE PATIENT FEP PROVIDER SHIVA [phone] RIAN MILLAN ORGANGERMANAT INDIV ION (PPO) IDUAL BCBS OF PREFERRED STAND May 08 [id number] [phone] JAMES CE PATIENT MASS PROVIDER SHIVA 2010 87 3 RIAN MILLAN FEDERAL ORGANIZAT SELF ION (PPO) BCBS OF PREFERRED STAND May 08 [id number] [phone] JAMES CE PATIENT MASS FEP PROVIDER SHIVA 2010 87 6 RIAN MILLAN ORGANIZAT SELF ION (PPO) BCBS OF DENTAL STAND May 08, DENTAL [id number] [phone] SANDEEP, PATIENT MASS FEP INSURANCE SHIVA 2010 87 6 RIAN DENTAL BCBS OF [place] MEDICARE FEP Dec 06 [id number] SANDEEP PATIENT FEP SECONDARY STAND 2019 [phone] RIAN MILLAN (NO B SHIVA EXC) MEDSE C CAREMARK PRESCRIPT FEP Dec 06, [id number] SANDEEP PATIENT FEP ION ONLY 2014 0 [phone] RIAN MILLAN CARELIONEL PRESCRIPT May 08, [id number] [phone] EDUARDO ENCEstella PATIENT FEP ION 2011 0 87 1 RIAN MILLAN PRESCRIPT CAREM May 08, [id number] [phone] EDUARDO ENCEstella, PATIENT FEP BCBS ION ARK 2011 0 87 1 RIAN FEPRX PLAN CAREMARK PRESCRIPT May 08, [id number] [phone] LAWR ENCE PATIENT FEPRX PLAN ION 2011 0 [phone] RIAN MILLAN-F PRESCRIPT FEPRX May 08, [id number] [phone] LA WRENCE PATIENT EP BCBS ION /PT D 2010 0 87 1 RIAN MILLAN [facility] May 18, [id number] [phone] JAMES CE, PATIENT [facility] [place] 2003 32 7 RIAN CE ORGANIZ EXPRESS PRESCRIPT CONNE May 18, [id number] [phone] JAMES CE, PATIENT SCRIPTS ION CTICA 2003 [id number] 7 RIAN ([id number]) RE MEDICARE MEDICARE PART Oct 06, PART B [id number] JAMES CE, PATIENT (WNR) (M) B 2012 UP33 2 [place] MEDICARE MEDICARE PART Oct 06, PART A [id number] JAMES CE, PATIENT (WNR) (M) A 2013 UP33 00 [place] MEDICARE MEDICARE PART Oct 06, PART B [id number] [phone] JAMES CE, PATIENT (WNR) (M) B 2013 UP33 00 [place] MEDICARE MEDICARE PART Oct 06, PART A [id number] 800 Lisa HOPKINS (WNR) (M) A 2013 UP33 [phone] [place] MEDICARE MEDICARE PART Oct 06, PART A [id number] [phone] JAMES CE, PATIENT (WNR) (M) A 2013 UP33 7 [place] MEDICARE MEDICARE PART Oct 06, PART B [id number] [id number] JAMES CE, PATIENT (WNR) (M) B 2012 UP33 7 RIAN MEDICARE MEDICARE PART Oct 06, PART B [id number] 800 SANDEEPLisa ATIENT (WNR) (M) B 2012 UP33 [phone] RIAN MEDICARE MEDICARE PART Oct 06, PART A [id number] JAMES CE, PATIENT (WNR) (M) A 2012 UP33 2 RIAN MEDICARE MEDICARE PART Dec 06, PART D [id number] Lisa HOPKINS ATIENT PART D (M) D 2018 UP33 [phone] RIAN (WNR) MEDICARE MEDICARE PART Oct 06, PART D [id number] [phone] JAMES CE, PATIENT PART D (M) D 2012 UP33 7 RIAN (WNR) MEDICARE PRESCRIPT PART Oct 06, PART D [id number] LAWRE NCE, PATIENT PART D ION D 2012 32A 0 RIAN (WNR) MEDICARE PRESCRIPT PART Oct 06, PART D [id number] LAWRE NCE, PATIENT PART D ION D 2012 UP33 0 RIAN (WNR) Selected Encounter This section includes the information on record at [place] for the Encounter. Date/Time Encounter Type Encounter Description Reason Provider Source Dec 29, 2021 07:20 Outpatient Encounter PRIMARY CARE/MEDICINE AM I[facility] Encounter [...] 13, 2022 02:00 PM AMBULATORY - MEDICINE [facility] Jan 17, 2022 01:00 PM AMBULATORY - PSYCHIATRY [facility] Jan 19, 2022 01:00 PM AMBULATORY - PS[facility]CHIATRY [facility] Feb 03, 2022 01:00 PM AMBULATORY PSYCHIATRY [facility] Feb 28, 2022 11:00 AM [facility] Lab [...] Range Comment Jan 14, 2022 02:05 PM [facility] CALCIUM Specimen Type: SERUM No comment enter ed. Ordering Provid er: BAM KAT Report Released Date/Time: Dec 14, 2021 03:11 PM Reporting Lab: [facility] [address] [facility] [address] Performing Lab: [address] [address] CALCIUM 8.8 8.5-10.2 Jan 14, 2022 02:05 PM [facility] MAGNESIUM Specimen Type: SERUM No comment enter ed. Ordering Provid er: BAM KAT Report Released Date/Time: Dec 14, 2021 03:11 PM Reporting Lab: [facility] [address] [facility] [address] Performing Lab: [facility] [address] [facility] [address] MAGNESIUM 1.8 1.6-2.6 Jan 14, 2022 [facility] HEMOGLOBIN A1C Specimen Type: BLOOD 02:05 PM PANEL Comment: Values obtained from A1C measurements can vary. For typical A1C assays, a reported value of 7.0 could actually be between 6.72 and 7.28 if measured by a reference method. A reported value of 9 .0 could actuall y be between 8.73 and 9.27. Ref: http://www.ngsp.org/CAPdata.asp Ordering Provid er: BAM KAT Report Released Date/Time: Dec 14, 2021 03:11 PM Reporting Lab: [facility] [address] [facility] [address] Performing Lab: [address] [address] HEMOGLOBIN A1C 9.8 H 4.0-5.6 Jan 14, 2022 02:05 PM [facility] VITAMIN D (25-[place]) Specime n Type: SERUM No comment enter ed. Ordering Provid er: BAM KAT Report Released Date/Time: Dec 14, 2021 03:11 PM Reporting Lab: [facility] [place] [facility] [address] [facility] [address] Performing Lab[facility] [place] [facility] [address] [facility] [address] VITAMIN D (25-[place]) 14 L 20-50 Jan 14, 2022 02:05 PM [facility] TSH Specimen Type: SERUM No comment enter ed. Ordering Provid er: BAM KAT Report Released Date/Time: Dec 14, 2021 03:11 PM Reporting Lab: [facility] [place] [facility] [address] [facility] [address] Performing Lab: [facility] [place] [facility] [address] [facility] [address] TSH 1.47 0.35-5.00 Jan 14, 2022 02:05 PM [facility] SED RATE, AUTOMATED Speci men Type: BLOOD No comment enter ed. Ordering Provid er: BAM KAT Report Released Date/Time: Dec 14, 2021 03:11 PM Reporting Lab: [facility] [place] [facility] [address] [facility] [address] Performing Lab: [facility] [place] [facility] [address] [facility] [address] SED RATE, AUTOMATED 20 0-20 Jan 14, 2022 02:05 PM [facility] LIPID PANEL FASTING Speci men Type: SERUM No comment enter ed. Ordering Provid er: BAM KAT Report Released Date/Time: Dec 14, 2021 03:11 PM Reporting Lab: [facility] [place] [facility] [address] [facility] [address] Performing Lab: [facility] [place] [facility] [address] [facility] [address] CHOLESTEROL 180 <7-199 TRIGLYCERIDE 132 0-150 LDL calculated 107 0-129 CHOL/HDL 3.8 HDL CHOLESTEROL 47 40-60 Jan 14, 2022 02:05 PM [facility] LIVER FUNCTION Specimen Type: SERUM No comment enter ed. Ordering Provid er: BAM KAT Report Released Date/Time: Dec 14, 2021 03:11 PM Reporting Lab: [facility] [address] [facility] [address] Performing Lab: [address] [address] PROTEIN,TOTAL 6.1 6.0-8.3 ALBUMIN 2.9 L 3.5-5.0 ALKALINE PHOSPHATASE 49 40-150 AST 14 5-34 ALT 12 <6-55 BILIRUBIN, TOTAL 0.4 0.2-1.2 Jan 14, 2022 02:05 PM [facility] BASIC METABOLIC PANEL Spe cimen Type: SERUM (fasting) No comment enter ed. Ordering Provid er: BAM KAT Report Released Date/Time: Dec 14, 2021 03:11 PM Reporting Lab: [facility] [address] [facility] [address] Performing Lab: [address] [address] UREA NITROGEN 18 7-25 GLUCOSE 165 H 65-100 SODIUM 139 135-145 POTASSIUM 4.1 3.5-5.0 CHLORIDE 105 100-110 CO2 27 20-30 CREATININE, Serum 1.59 H 0.50-1.40 eGFR(CKD-EPI 2020) 46 L >60 Jan 14, 2022 02:05 PM [facility] CBC AND DIFF (AUTO) Speci men Type: BLOOD No comment enter ed. Ordering Provid er: BAM KAT Report Released Date/Time: Dec 14, 2021 03:11 PM Reporting Lab: [facility] [address] [facility] [address] Performing Lab: [address] [address] WBC 7.22 4.50-11.00 RBC 4.58 4.23-5.66 HGB 13.4 12.8-17 HCT 39.7 39.2-50.4 MCV 86.7 82-99 MCHC 33.8 30.8-35.1 PLT 247 140-360 RDW-CV 13.0 12.0-16.0 [place], Abs 0.71 0.30-1.10 MCH 29.3 26.2-32.6 Neut % 48.5 Lymph % 34.9 [place] % 9.8 Eos % 5.8 Baso % 0.7 Neut, Abs 3.50 2.20-7.60 Lymph, Abs 2.52 1.00-3.20 Eos, Abs 0.42 0.03-0.44 Baso, Abs 0.05 0.01-0.13 Immature Gran % 0.3 Immature Gran, Abs 0.02 0.00-0.06 Encounter Notes: All associated encounter notes This section contains the clinical notes associated to the Encounter. Date/Time Encounter Note(s) Provider Source Dec 29, 2021 07:20 AM PRIMARY CARE SECURE MESSAGING: JOVAN HOOVER [place] [facility] LOCAL TITLE: PRIMARY CARE SECURE MESSAGING [facility] STANDARD TITLE: PRIMARY CARE SECURE MESSAGING DATE OF NOTE: DEC 29, 2021@07:20 ENTRY DATE: DEC 29, 2021@08:20:46 AUTHOR: JOVAN HOOVER EXP COSIGNER: URGENCY: STATUS: COMPLETED PRIMARY CARE SECURE MESSAGING Has ADDENDA * ------Original Message Sent: 12/28/2021 06:17 PM ET From: RIAN HOPKINS To: ARLETTE,O_PRIMARY CARE_[facility] Subject: Medication:Head acks The Last time I was there I seen a New Doctor that covered for My Doctor and he prescribed me a new head ack meds to try for my head acks but to date I have not received and Med for my head acks an d they are killing me . Can you please check and let me know what going on . Thanks Juan Carlos [id number] Juan Carlos /justine/ JOVAN VANEGAS Signed: 12/29/2021 08:20 Receipt Acknowledged By: 12/29/2021 08:37 /justine/ Jessica Coley, RN Registered Nurse (RN) for [facility] SANDERSON * AWAITING SIGNATURE * REJI SHABAZZ 12/29/2021 ADDENDUM STATUS: COMPLETED [facility] message sent to alcides Thorne, According to the visit note from 12/14/21 with Mr. Kat you discussed increasing amlodipine to 10 mg daily. Return to clinic in 1 month to recheck blood pressure and evaluate any improvement in headache with better control. If no improvement in BP control, would add an addit ional medication. No medication was sent . Did you increase Amlodipin e as advised? Please let us know Thank you for your service BRIGITTE Lopez /justine/ Jessica Coley RN Registered Nurse (RN) Signed: 12/29/2021 08:37
--- OUTSIDE RECORDS SUMMARY | 2022-02-03 00:56 | XMS_ITS | Encounter Summary ---
:1950 Author Organization Department [facility] rs Address [address] [place] [address] Support Name Relationship Address Phone LORI HOPKINS Unavailable [address] [place] [address] [place] [address] LORI HOPKINS Unavailable [address] [facility] [place] [address] Insurance Providers: All historical and current Section [...] Number Silva JARRED PREFERRED STAND May 08 [id number] PROVIDER SHIVA 2011 [id number] RIAN MILLAN FEDERAL ORGANIZAT SELF ION (PPO) BCBS MD PREFERRED STAND May 08 [id number] [phone] JAMES CE PATIENT FEP PROVIDER SHIVA [phone] RIAN MILLAN ORGANGERMANAT INDIV ION (PPO) IDUAL BCBS OF PREFERRED STAND May 08 [id number] [phone] JAMES CE PATIENT MASS PROVIDER SHIVA 2010 87 3 RIAN MILLAN FEDERAL ORGANIZAT SELF ION (PPO) BCBS OF PREFERRED STAND May 08 [id number] [phone] JAMES CE PATIENT MASS FEP PROVIDER SHIVA 2010 87 6 RIAN MILLAN ORGANIZAT SELF ION (PPO) BCBS OF DENTAL STAND May 08, DENTAL [id number] [phone] SANDEEP, PATIENT MASS FEP INSURANCE SHIVA 2010 87 6 RIAN DENTAL BCBS OF [place] MEDICARE FEP Dec 06 [id number] SANDEEP PATIENT FEP SECONDARY STAND 2019 [phone] RIAN MILLAN (NO B SHIVA EXC) MEDSE C CAREMARK PRESCRIPT FEP Dec 06, [id number] SANDEEP PATIENT FEP ION ONLY 2014 0 [phone] RIAN MILLAN CARELIONEL PRESCRIPT May 08, [id number] [phone] EDUARDO ENCEstella PATIENT FEP ION 2011 0 87 1 RIAN MILLAN PRESCRIPT CAREM May 08, [id number] [phone] EDUARDO ENCEstella, PATIENT FEP BCBS ION ARK 2011 0 87 1 RIAN FEPRX PLAN CAR[place]ARK PRESCRIPT May 08, [id number] [phone] LAWR ENCE PATIENT FEPRX PLAN ION 2011 0 [id number] 331 RIAN MILLAN-F PRESCRIPT FEPRX May 08, [id number] [phone] LA WRENCE PATIENT EP BCBS ION /PT D 2010 0 87 1 RIAN MILLAN [facility] May 18, [id number] [phone] JAMES CE, PATIENT RE [facility] 2003 32 7 RIAN CE ORGANIZ EXPRESS PRESCRIPT CONNE May 18, [id number] [phone] JAMES CE, PATIENT SCRIPTS ION CTICA 2003 [id number] RIAN ([id number]) RE MEDICARE MEDICARE PART Oct 06, PART B [id number] JAMES CE, PATIENT (WNR) (M) B 2012 UP33 2 [place] MEDICARE MEDICARE PART Oct 06, PART A [id number] JAMES CE, PATIENT (WNR) (M) A 2013 UP33 00 [place] MEDICARE MEDICARE PART Oct 06, PART B [id number] JAMES CE, PATIENT (WNR) (M) B 2013 UP33 00 [place] MEDICARE MEDICARE PART Oct 06, PART A [id number] Lisa HOPKINS (WNR) (M) A 2013 UP33 [id number] [place] MEDICARE MEDICARE PART Oct 06, PART A [id number] [phone] JAMES CE, PATIENT (WNR) (M) A 2013 UP33 7 [place] MEDICARE MEDICARE PART Oct 06, PART B [id number] [phone] JAMES CE, PATIENT (WNR) (M) B 2012 UP33 7 RIAN MEDICARE MEDICARE PART Oct 06, PART B [id number] Lisa HOPKINS ATIENT (WNR) (M) B 2012 UP33 [phone] RIAN MEDICARE MEDICARE PART Oct 06, PART A [id number] JAMES CE, PATIENT (WNR) (M) A 2012 UP33 2 RIAN MEDICARE MEDICARE PART Dec 06, PART D [id number] Lisa HOPKINS ATIENT PART D (M) D 2018 UP33 [phone] RIAN (WNR) MEDICARE MEDICARE PART Oct 06, PART D [id number] [phone] JAMES CE, PATIENT PART D (M) D 2012 UP33 7 RIAN (WNR) MEDICARE PRESCRIPT PART Oct 06, PART D [id number] LAWRE NCE, PATIENT PART D ION D 2012 32A 0 RIAN (WNR) MEDICARE PRESCRIPT PART Oct 06, PART D [id number] [phone] LAWRE NCE, PATIENT PART D ION D 2012 UP33 0 RIAN (WNR) Selected Encounter This section includes the information on record at [place] for the Encounter. Date/Time Encounter Type Encounter Description Reason Provider Source Jan 07, 2022 08:51 Outpatient Encounter PRIMARY CARE/MEDICINE AM IHE Encounter [...] 13, 2022 02:00 PM AMBULATORY - MEDICINE [place] Jan 17, 2022 01:00 PM AMBULATORY - [facility]CHIATRY [place] Jan 19, 2022 01:00 PM AMBULATORY - [facility]IATRY [place] Feb 03, 2022 01:00 PM AMBULATORY PSYCHIATRY [place] Feb 28, 2022 11:00 AM [facility] Lab Results: +/- 30 [...] Range Comment Jan 14, 2022 02:05 PM [place] MAGNESIUM Specimen Type: SERUM No comment enter ed. Ordering Provid er: BAM ANDREW Report Released Date/Time: Dec 14, 2021 03:11 PM Reporting Lab: [facility] [place] [facility] [address] [facility] [address] Performing Lab: [facility] [place] [facility] [address] [facility] [address] MAGNESIUM 1.8 1.6-2.6 Jan 14, 2022 02:05 PM [place] CALCIUM Specimen Type: SERUM No comment enter ed. Ordering Provid er: BAM ANDREW Report Released Date/Time: Dec 14, 2021 03:11 PM Reporting Lab: [facility] [place] [facility] [address] [facility] [address] Performing Lab: [facility] [place] [facility] [address] [facility] [address] CALCIUM 8.8 8.5-10.2 Jan 14, 2022 02:05 PM [place] VITAMIN D (25-[place]) Specime n Type: SERUM No comment enter ed. Ordering Provid er: BAM ANDREW Report Released Date/Time: Dec 14, 2021 03:11 PM Reporting Lab: [facility] [place] [facility] [address] [facility] [address] Performing Lab: [facility] [place] [facility] [address] [facility] [address] VITAMIN D (25-[place]) 14 L 20-50 Jan 14, 2022 02:05 PM [place] TSH Specimen Type: SERUM No comment enter ed. Ordering Provid er: BAM ANDREW Report Released Date/Time: Dec 14, 2021 03:11 PM Reporting Lab: [facility] [place] [facility] [address] [facility] [address] Performing Lab: [facility] [place] [facility] [address] [facility] [address] TSH 1.47 0.35-5.00 Jan 14, 2022 [place] HEMOGLOBIN A1C Specimen Type: BLOOD 02:05 PM [...] Dec 14, 2021 03:11 PM Reporting Lab: [facility] [address] [facility] [address] Performing Lab: [address] [address] HEMOGLOBIN A1C 9.8 H 4.0-5.6 Jan 14, 2022 02:05 PM [place] SED RATE, AUTOMATED Speci men Type: BLOOD No comment enter ed. Ordering Provid er: BAM ANDREW Report Released Date/Time: Dec 14, 2021 03:11 PM Reporting Lab: [facility] [address] [facility] [address] Performing Lab: [facility] [address] [facility] [address] SED RATE, AUTOMATED 20 0-20 Jan 14, 2022 02:05 PM [place] LIPID PANEL FASTING Speci men Type: SERUM No comment enter ed. Ordering Provid er: BAM ANDREW Report Released Date/Time: Dec 14, 2021 03:11 PM Reporting Lab: [facility] [address] [facility] [address] Performing Lab: [facility] [address] [facility] [address] CHOLESTEROL 180 <7-199 TRIGLYCERIDE 132 0-150 LDL calculated 107 0-129 CHOL/HDL 3.8 HDL CHOLESTEROL 47 40-60 Jan 14, 2022 02:05 PM [place] LIVER FUNCTION Specimen Type: SERUM No comment enter ed. Ordering Provid er: BAM ANDREW Report Released Date/Time: Dec 14, 2021 03:11 PM Reporting Lab: [facility] [address] [facility] [address] Performing Lab: [address] [address] PROTEIN,TOTAL 6.1 6.0-8.3 ALBUMIN 2.9 L 3.5-5.0 ALKALINE PHOSPHATASE 49 40-150 AST 14 5-34 ALT 12 <6-55 BILIRUBIN, TOTAL 0.4 0.2-1.2 Jan 14, 2022 02:05 PM [place] BASIC METABOLIC PANEL Spe cimen Type: SERUM (fasting) No comment enter ed. Ordering Provid er: BAM ANDREW Report Released Date/Time: Dec 14, 2021 03:11 PM Reporting Lab: [facility] [address] [facility] [address] Performing Lab: [address] [address] UREA NITROGEN 18 7-25 GLUCOSE 165 H 65-100 SODIUM 139 135-145 POTASSIUM 4.1 3.5-5.0 CHLORIDE 105 100-110 CO2 27 20-30 CREATININE, Serum 1.59 H 0.50-1.40 eGFR(CKD-EPI 2020) 46 L >60 Jan 14, 2022 02:05 PM [place] CBC AND DIFF (AUTO) Speci men Type: BLOOD No comment enter ed. Ordering Provid er: BAM ANDREW Report Released Date/Time: Dec 14, 2021 03:11 PM Reporting Lab: [facility] [address] [facility] [address] Performing Lab: [address] [address] WBC 7.22 4.50-11.00 RBC 4.58 4.23-5.66 HGB 13.4 12.8-17 HCT 39.7 39.2-50.4 MCV 86.7 82-99 MCHC 33.8 30.8-35.1 PLT 247 140-360 RDW-CV 13.0 12.0-16.0 [place], Abs 0.71 0.30-1.10 MCH 29.3 26.2-32.6 Neut % 48.5 Lymph % 34.9 [place] % 9.8 Eos % 5.8 Baso % 0.7 Neut, Abs 3.50 2.20-7.60 Lymph, Abs 2.52 1.00-3.20 Eos, Abs 0.42 0.03-0.44 Baso, Abs 0.05 0.01-0.13 Immature Gran % 0.3 Immature Gran, Abs 0.02 0.00-0.06 Encounter Notes: All associated encounter notes This section contains the clinical notes associated to the Encounter. Date/Time Encounter Note(s) Provider Source Jan 07, 2022 08:51 AM MEDICATION MGT NOTE: MAGNUS SANDERSON [facility] TITLE: OUTPATIENT MEDICATION REQUEST STANDARD TITLE: MEDICATION MGT NOTE DATE OF NOTE: JAN 07, 2022@08:51 ENTRY DATE: JAN 07, 2022@08:52:30 AUTHOR: MAGNUS SANDERSON COSIGNER: URGENCY: STATUS: COMPLETED Medication Request Date of Request: Jan Pippa [address] [address] fax [phone] RX: humulin n 100 unit/mL suspension SI units morning, 40 units bedtime subcutan eously twice daily DISP: 70 RF: 2 RX: novolog 100 unit/mL solution SI units am, 30 units pm, or as directed hall bcutaneously twice daily DISP: 50 RF: 2 NOTE: [facility] pharmacy received via eprescribe fax /es/ Magnus Sanderson RN Registered Nurse Signed: 01/07/2022 09:07 Receipt Acknowledged By: * AWAITING SIGNATURE * PETER CHONG
--- OUTSIDE RECORDS SUMMARY | 2022-02-03 00:57 | XMS_ITS | Encounter Summary ---
:1950 Author Organization [facility] Address [address] [place] [address] Support Name Relationship Address Phone LORI HOPKINS Unavailable [address] [place] [address] LORI HOPKINS Unavailable [address] [place] [address] Insurance Providers: All historical and current Section [...] Number Silva JARRED PREFERRED STAND May 08 [id number] PROVIDER SHIVA 2010 [id number] RIAN MILLAN FEDERAL ORGANIZAT SELF ION (PPO) BCBS [place] PREFERRED STAND May 08 [id number] [phone] JAMES CE PATIENT FEP PROVIDER SHIVA [phone] RIAN MILLAN ORGANGERMANAT INDIV ION (PPO) IDUAL BCBS OF PREFERRED STAND May 08 [id number] [phone] JAMES CE PATIENT MASS PROVIDER SHIVA 2010 87 3 RIAN MILLAN FEDERAL ORGANIZAT SELF ION (PPO) BCBS OF PREFERRED STAND May 08 [id number] [phone] JAMES CE PATIENT MASS FEP PROVIDER SHIVA 2010 87 6 RIAN MILLAN ORGANIZAT SELF ION (PPO) BCBS OF DENTAL STAND May 08, DENTAL [id number] [phone] SANDEEP, PATIENT MASS FEP INSURANCE SHIVA 2010 87 6 RIAN DENTAL [place]BS OF [place] MEDICARE FEP Dec 06 [id number] SANDEEP PATIENT FEP SECONDARY STAND 2019 [phone] RIAN MILLAN (NO B SHIVA EXC) MEDSE C CAREMARK PRESCRIPT FEP Dec 06, [id number] SANDEEP PATIENT FEP ION ONLY 2013 0 87 [phone] RIAN MILLAN PRESCRIPT May 08, [id number] [phone] EDUARDO MATTHEW PATIENT FEP ION 2011 0 87 1 RIAN MILLAN PRESCRIPT CAREM May 08, [id number] [phone] EDUARDO MATTHEW, PATIENT FEP BCBS ION ARK 2011 0 87 1 RIAN FEPRX PLAN [place] PRESCRIPT May 08, [id number] [phone] LAWR ENCEstella PATIENT FEPRX PLAN ION 2011 0 87 331 RIAN MILLAN-F PRESCRIPT FEPRX May 08, [id number] [phone] LA KVNG PATIENT EP BCBS ION /PT D 2010 0 87 1 RIAN MILLAN [facility] May 18, [id number] [phone] JAMES CE, PATIENT RE [place] 2003 32 7 RIAN CE ORGANIZ EXPRESS PRESCRIPT CONNE May 18, [id number] [phone] JAMES CE, PATIENT SCRIPTS ION CTICA 2002 3201 7 RIAN ([id number]) RE MEDICARE MEDICARE PART Oct 06, PART A [id number] JAMES CE, PATIENT (WNR) (M) A 2013 UP33 00 [place] MEDICARE MEDICARE PART Oct 06, PART A [id number] JAMES CE, PATIENT (WNR) (M) A 2012 UP33 2 [place] MEDICARE MEDICARE PART Oct 06, PART B [id number] [phone] JAMES CE, PATIENT (WNR) (M) B 2013 UP33 00 [place] MEDICARE MEDICARE PART Oct 06, PART B [id number] JAMES CE, PATIENT (WNR) (M) B 2012 UP33 2 [place] MEDICARE MEDICARE PART Oct 06, PART A [id number] Lisa HOPKINS (WNR) (M) A 2012 UP33 [id number] [place] MEDICARE MEDICARE PART Oct 06, PART A [id number] [phone] JAMES CE, PATIENT (WNR) (M) A 2012 UP33 7 RIAN MEDICARE MEDICARE PART Oct 06, PART B [id number] [phone] JAMES CE, PATIENT (WNR) (M) B 2012 UP33 7 RIAN MEDICARE MEDICARE PART Oct 06, PART B [id number] 800 SANDEEP, Lisa ATIENT (WNR) (M) B 2012 UP33 [phone] RIAN MEDICARE MEDICARE PART Dec 06, PART D [id number] 800 SANDEEP, P ATIENT PART D (M) D 2018 UP33 [phone] RIAN (WNR) MEDICARE MEDICARE PART Oct 06, PART D [id number] [phone] JAMES CE, PATIENT PART D (M) D 2012 UP33 7 RIAN (WNR) MEDICARE PRESCRIPT PART Oct 06, PART D [id number] LAWRE NCE, PATIENT PART D ION D 2012 32A 0 RIAN (WNR) MEDICARE PRESCRIPT PART Oct 06, PART D [id number] [phone] LAWRE NCE, PATIENT PART D ION D 2012 UP33 0 RIAN (WNR) Selected Encounter This section includes the information on record at [place] for the Encounter. Date/Time Encounter Type Encounter Description Reason Provider Source Jan 17, 2022 01:00 Outpatient Encounter [facility] PM - IND [facility] Encounter Template Text not used by [place] Plan of Treatment: Future Appointments (+ 6 months) and Future Tests (+/- 45 days) The Plan of Treatment section includes future care activities for the patient from all [place] treatmentfacilities. This section includes future appointments and future orders which are active, pending orscheduled.Future Appointments This section includes appointments that were scheduled to occur 6 months from the date of the Encounter, up to a maximum of 20 appointments. The data comes from all [place] treatment facilities. Appointment Date/Time Appointment Type Appointment Facili ty Name Jan 19, 2022 01:00 PM AMBULATORY - PSYCHIATRY [place] Feb 03, 2022 01:00 PM AMBULATORY - [place]CHIATRY [place] Feb 28, 2022 11:00 AM [facility] Lab Results: +/- 30 days of the encounter This section includes the Chemistry and Hematology Lab Results on record with [place] for the patient. Radiology Reports and Pathology Reports are provided separately, in subsequent sections.Lab Results This section contains the Chemistry/Hematology Results that were resulted 30 days before or 30 daysafter the date of the Encounter. Date/Time Source Result Type Result - Unit Interpretation Reference Range Comment Jan 14, 2022 02:05 PM [place] MAGNESIUM Specimen Type: SERUM No comment enter ed. Ordering Provid er: BAM ANDREW Report Released Date/Time: Dec 14, 2021 03:11 PM Reporting Lab: [facility] [address] [facility] [address] Performing Lab: [facility] [address] [facility] [address] MAGNESIUM 1.8 1.6-2.6 Jan 14, 2022 02:05 PM [place] CALCIUM Specimen Type: SERUM No comment enter ed. Ordering Provid er: BAM ANDREW Report Released Date/Time: Dec 14, 2021 03:11 PM Reporting Lab: [facility] [address] [facility] [address] Performing Lab: [address] [address] CALCIUM 8.8 8.5-10.2 Jan 14, 2022 02:05 PM [place] TSH Specimen Type: SERUM No comment enter ed. Ordering Provid er: BAM ANDREW Report Released Date/Time: Dec 14, 2021 03:11 PM Reporting Lab: [facility] [address] [facility] [address] Performing Lab: [facility] [address] [facility] [address] TSH 1.47 0.35-5.00 Jan 14, 2022 [place] HEMOGLOBIN A1C Specimen Type: BLOOD 02:05 PM [...] Dec 14, 2021 03:11 PM Reporting Lab: [facility] [address] Performing Lab: [facility] [place] [facility] [address] [facility] [address] HEMOGLOBIN A1C 9.8 H 4.0-5.6 Jan 14, 2022 02:05 PM [place] SED RATE, AUTOMATED Speci men Type: BLOOD No comment enter ed. Ordering Provid er: BAM ANDREW Report Released Date/Time: Dec 14, 2021 03:11 PM Reporting Lab: [facility] [place] [facility] [address] [facility] [address] Performing Lab: [facility] [place] [facility] [address] [facility] [address] SED RATE, AUTOMATED 20 0-20 Jan 14, 2022 02:05 PM [place] VITAMIN D (25-[place]) Specime n Type: SERUM No comment enter ed. Ordering Provid er: BAM ANDREW Report Released Date/Time: Dec 14, 2021 03:11 PM Reporting Lab: [facility] [place] [facility] [address] [facility] [address] Performing Lab: [facility]TR[facility] [place] [facility] [address] [facility] [address] VITAMIN D (25-[place]) 14 L 20-50 Jan 14, 2022 02:05 PM [place] LIPID PANEL FASTING Speci men Type: SERUM No comment enter ed. Ordering Provid er: BAM ANDREW Report Released Date/Time: Dec 14, 2021 03:11 PM Reporting Lab: [facility] [place] [facility] [address] [facility] [address] Performing Lab: [facility] [place] [facility] [address] [facility] [address] CHOLESTEROL 180 <7-199 TRIGLYCERIDE 132 0-150 LDL calculated 107 0-129 CHOL/HDL 3.8 HDL CHOLESTEROL 47 40-60 Jan 14, 2022 02:05 PM [place] LIVER FUNCTION Specimen Type: SERUM No comment enter ed. Ordering Provid er: BAM ANDREW Report Released Date/Time: Dec 14, 2021 03:11 PM Reporting Lab: [facility] [place] [facility] [address] [facility] [address] Performing Lab: [facility] [address] [facility] [address] PROTEIN,TOTAL 6.1 6.0-8.3 ALBUMIN 2.9 L 3.5-5.0 ALKALINE PHOSPHATASE 49 40-150 AST 14 5-34 ALT 12 <6-55 BILIRUBIN, TOTAL 0.4 0.2-1.2 Jan 14, 2022 02:05 PM [place] BASIC METABOLIC PANEL Spe cimen Type: SERUM (fasting) No comment enter ed. Ordering Provid er: BAM ANDREW Report Released Date/Time: Dec 14, 2021 03:11 PM Reporting Lab: [address] [address] Performing Lab: [address] [address] UREA NITROGEN 18 7-25 GLUCOSE 165 H 65-100 SODIUM 139 135-145 POTASSIUM 4.1 3.5-5.0 CHLORIDE 105 100-110 CO2 27 20-30 CREATININE, Serum 1.59 H 0.50-1.40 eGFR(CKD-EPI 2020) 46 L >60 Jan 14, 2022 02:05 PM [place] CBC AND DIFF (AUTO) Speci men Type: BLOOD No comment enter ed. Ordering Provid er: BAM ANDREW Report Released Date/Time: Dec 14, 2021 03:11 PM Reporting Lab: [address] [address] Performing Lab: [address] [address] WBC 7.22 4.50-11.00 RBC 4.58 4.23-5.66 HGB 13.4 12.8-17 HCT 39.7 39.2-50.4 MCV 86.7 82-99 MCHC 33.8 30.8-35.1 PLT 247 140-360 RDW-CV 13.0 12.0-16.0 [place], Abs 0.71 0.30-1.10 MCH 29.3 26.2-32.6 Neut % 48.5 Lymph % 34.9 [place] % 9.8 Eos % 5.8 Baso % 0.7 Neut, Abs 3.50 2.20-7.60 Lymph, Abs 2.52 1.00-3.20 Eos, Abs 0.42 0.03-0.44 Baso, Abs 0.05 0.01-0.13 Immature Gran % 0.3 Immature Gran, Abs 0.02 0.00-0.06 Social History: Smoking Status (Most current) and Tobacco Use (All prior to encounter date) This section includes the most current, and the historical, smoking and tobacco-related health factors from the [place] facility where the Encounter took place.Current Smoking Status This section includes the most current smoking, or tobacco-related health factor, from the [place] facility where the Encounter took place. Date/Time Current Smoking Status Comment Facility Dec 14, 2021 02:00 PM VA-TOBACCO FORMER USER [facility] Tobacco Use History This section includes a history of the smoking, or tobacco- related health factors, that were collected on or before the date of the Encounter. The data comes from the [place] facility where the Encounter took place. Date/Time Smoking Status/Tobacco Use Comment [facility] Dec 14, 2021 02:00 PM VA-TOBACCO QUIT 15 YRS OR [place] MORE September 17, 2020 02:00 PM VA-TOBACCO FORMER USER [facility] September 17, 2020 02:00 PM VA-TOBACCO QUIT 15 YRS OR [facility] Jan 10, 2020 02:00 PM VA-TOBACCO FORMER USER [facility] Jan 10, 2020 02:00 PM VA-TOBACCO QUIT 15 YRS OR [place] MORE Mar 23, 2018 02:31 PM VA-TOBACCO FORMER USER [facility] Mar 23, 2018 02:31 PM VA-TOBACCO QUIT 15 YRS OR [facility] September 19, 2017 01:43 PM QUIT TOBACCO USE > 7 YEARS [place] September 15, 2016 01:21 PM QUIT TOBACCO USE > 7 YEARS [place] AGO quit 40 years ago May 12, 2015 10:44 AM QUIT TOBACCO USE > 7 YEARS [place] Dec 27, 2006 10:00 AM QUIT TOBACCO USE > 7 YEARS [place] Dec 26, 2005 08:41 AM QUIT TOBACCO USE 1-7 YEARS [place] Aug 11, 2005 08:42 AM QUIT TOBACCO USE IN PAST [facility] Dec 09, 2004 08:20 AM QUIT TOBACCO USE IN PAST [facility] 2003Apr 02, 2004 08:07 AM QUIT TOBACCO USE IN PAST [facility] Quit several wks ago Jun 02, [...] Encounter. Date/Time Encounter Note(s) Provider Source Jan 17, 2022 01:13 PM CLERICAL NOTE: PEDRO LEAVITT ELD LOCAL TITLE: APPOINTMENT NO SHOW STANDARD TITLE: CLERICAL NOTE DATE OF NOTE: JAN 17, 2022@13:13 ENTRY DATE: JAN 17, 2022@13:13:04 AUTHOR: PEDRO LEAVITT EXP COSIGNER: URGENCY: STATUS: COMPLETED APPOINTMENT NO SHOW Has ADDENDA Patient Name: RIAN HOPKINS JR Patient SSN: [id number] Date and time of Appointment No show : 01/17/22 13:00 PATIENT PHONE - PHONE NUMBER [CELLULAR] - Patient's medical record was reviewed. Follow-up actions were determined and initiated: Please check/complete as applies: [ x]Telephoned Directly --th e patient had previously contacted us to reschedule this appointment [ ]Re-scheduled for next available appt [ ]Sent a N0-show letter ( must call for appointment) [ ]Other (Emergent/Overbook, etc.): Additional Comments: Future Clinic Visits 02/03/2022 13:00 CWM/SO/TH/VVC/MHC/MESSINA /justine/ PEDRO LEAVITT MD STAFF PSYCHIATRIST Signed: 01/17/2022 17:23 01/17/2022 ADDENDUM STATUS: COMPLETED I will forward to the [facility] - - the patient previously contacted us to reschedule this appointment, of note the patient do es have an appointment rescheduled for 01/19 /justine/ PEDRO LEAVITT MD STAFF PSYCHIATRIST Signed: 01/17/2022 17:24 Receipt Acknowledged By: * AWAITING SIGNATURE * LALO LIGHT * AWAITING SIGNATURE * EDITH TEJEDA
--- OUTSIDE RECORDS SUMMARY | 2022-02-03 00:58 | XMS_ITS | Encounter Summary ---
:1950 Author Organization [facility] Address [address] [place] [id number] Support Name Relationship Address Phone LORI HOPKINS Unavailable [address] [facility] [place] [address] LORI HOPKINS Unavailable [address] [facility] [place] [address] Insurance Providers: All historical and current Section [...] Number Silva ANTHZARA PREFERRED STAND May 08 [id number] [phone] PROVIDER SHIVA 2011 [id number] RIAN MILLAN FEDERAL ORGANIZAT SELF ION (PPO) BCBS [place] PREFERRED STAND May 08 [id number] [phone] JAMES CE PATIENT FEP PROVIDER SHIVA [phone] RIAN MILLAN ORGANGERMANAT INDIV ION (PPO) IDUAL BCBS OF PREFERRED STAND May 08 [id number] [phone] JAMES CE PATIENT MASS PROVIDER SHIVA 2010 [id number] RIAN MILLAN FEDERAL ORGANIZAT SELF ION (PPO) BCBS OF PREFERRED STAND May 08 [id number] [phone] JAMES CE PATIENT MASS FEP PROVIDER SHIVA [phone] RIAN MILLAN ORGANIZAT SELF ION (PPO) BCBS OF DENTAL STAND May 08, DENTAL [id number] [phone] SANDEEP, PATIENT MASS FEP INSURANCE SHIVA [phone] RIAN DENTAL [place] OF [place] MEDICARE FEP Dec 06 [id number] SANDEEP PATIENT FEP SECONDARY STAND [id number] [phone] RIAN MILLAN (NO B SHIVA EXC) MEDSE C CAREMARK PRESCRIPT FEP Dec 06, [id number] SANDEEP PATIENT FEP ION ONLY 2014 [phone] RIAN MILLAN CARELIONEL PRESCRIPT May 08, [id number] [phone] EDUARDO MATTHEW PATIENT FEP ION 2011 0 [id number] 1 RIAN MILLAN PRESCRIPT CAREM May 08, [id number] [phone] EDUARDO ENCEstella, PATIENT FEP BCBS ION ARK 2011 0 87 1 RIAN FEPRX PLAN CAREMARK PRESCRIPT May 08, [id number] [phone] ENCE PATIENT FEPRX PLAN ION 2011 0 [phone] RIAN MILLAN-F PRESCRIPT FEPRX May 08, [id number] [phone] LA WRENCE PATIENT EP BCBS ION /PT D 2010 0 87 1 RIAN MILLAN [facility] May 18, [id number] [phone] JAMES CE, PATIENT RE JONATAN AL 2003 [id number] 7 RIAN CE ORGANIZ EXPRESS PRESCRIPT CONNE May 18, [id number] [phone] JAMES CE, PATIENT SCRIPTS ION CTICA 2003 [id number] RIAN ([id number]) RE MEDICARE MEDICARE PART Oct 06, PART A [id number] JAMES CE, PATIENT (WNR) (M) A 2013 UP33 00 JOSEPH MEDICARE MEDICARE PART Oct 06, PART A [id number] [phone] JAMES CE, PATIENT (WNR) (M) A 2012 UP33 2 [place]PH MEDICARE MEDICARE PART Oct 06, PART A [id number] Lisa HOPKINS (WNR) (M) A 2013 UP33 [phone] [place] MEDICARE MEDICARE PART Oct 06, PART B [id number] [phone] JAMES CE, PATIENT (WNR) (M) B 2013 UP33 00 [place] MEDICARE MEDICARE PART Oct 06, PART B [id number] [phone] JAMES CE, PATIENT (WNR) (M) B 2013 UP33 2 [place]PH MEDICARE MEDICARE PART Oct 06, PART A [id number] [phone] JAMES CE, PATIENT (WNR) (M) A 2012 UP33 7 RIAN MEDICARE MEDICARE PART Oct 06, PART B [id number] [phone] JAMES CE, PATIENT (WNR) (M) B 2012 UP33 7 RIAN MEDICARE MEDICARE PART Oct 06, PART B [id number] SANDEEPLisa ATIENT (WNR) (M) B 2012 UP33 [phone] RIAN MEDICARE MEDICARE PART Dec 06, PART D [id number] SANDEEP P ATIENT PART D (M) D 2018 UP33 [phone] RIAN (WNR) MEDICARE PRESCRIPT PART Oct 06, PART D [id number] [phone] LAWRE NCE, PATIENT PART D ION D 2012 [id number] RINA (WNR) MEDICARE PRESCRIPT PART Oct 06, PART D [id number] [phone] LAWRE NCE, PATIENT PART D ION D 2012 UP33 0 RIAN (WNR) MEDICARE MEDICARE PART Oct 06, PART D [id number] [phone] JAMES CE, PATIENT PART D (M) D 2012 UP33 7 RIAN (WNR) Selected Encounter This section includes the information on record at [place] for the Encounter. Date/Time Encounter Type Encounter Reason Provider Source Description Jan 19, 2022 OFFICE O/P EST MENTAL HEALTH ICD-10-CM F43.10 [facility] 01:00 PM MOD 30-39 MIN CLINIC - IND Post-traumatic EN G stress disorder, unspecified with Provider Comments: Posttraumatic stress disorder ([facility] [id number]) IHE Encounter Template Text not used by [place] Assessments - Encounter Diagnoses This section includes the primary and secondary diagnoses documented for the Encounter. Date/Time Primary/Secondary Diagnosis Name Provider Source Diagnosis Jan 19, 2022 PRIMARY Post-traumatic PEDRO LEAVITTBRISEIDA D 06:35 PM stress disorder, G unspecified Jan 19, 2022 SECONDARY Major depressive PEDRO LEAVITT ELD 06:35 PM disorder, single G episode, unspecified Plan of Treatment: Future Appointments [...] Appointment Type Appointment Facili ty Name Feb 03, 2022 01:00 PM [facility] [place] Feb 28, 2022 11:00 AM AM[facility]ORY [facility] [place] Lab Results: +/- 30 days of the encounter This section includes the Chemistry and Hematology Lab Results on record with [place] for the patient. Radiology Reports and Pathology Reports are provided separately, in subsequent sections.Lab Results This section contains the Chemistry/Hematology Results that were resulted 30 days before or 30 daysafter the date of the Encounter. Date/Time Source Result Type Result - Unit Interpretation Reference Range Comment Jan 14, 2022 02:05 PM [facility] CALCIUM Specimen Type: SERUM No comment enter ed. Ordering Provid er: BAM ANDREW Report Released Date/Time: Dec 14, 2021 03:11 PM Reporting Lab: [address] [address] Performing Lab: [address] [address] CALCIUM 8.8 8.5-10.2 Jan 14, 2022 02:05 PM [facility] MAGNESIUM Specimen Type: SERUM No comment enter ed. Ordering Provid er: BAM ANDREW Report Released Date/Time: Dec 14, 2021 03:11 PM Reporting Lab: [address] [address] Performing Lab: [address] [address] MAGNESIUM 1.8 1.6-2.6 Jan 14, 2022 [facility] HEMOGLOBIN A1C Specimen Type: BLOOD 02:05 PM [...] Dec 14, 2021 03:11 PM Reporting Lab: [address] [address] Performing Lab: [place] [facility] [place] [facility] [address] [facility] [address] HEMOGLOBIN A1C 9.8 H 4.0-5.6 Jan 14, 2022 02:05 PM [facility] TSH Specimen Type: SERUM No comment enter ed. Ordering Provid er: BAM ANDREW Report Released Date/Time: Dec 14, 2021 03:11 PM Reporting Lab: [facility] [place] [facility] [address] [facility] [address] Performing Lab: [place] [facility] [place] [facility] [address] [facility] [address] TSH 1.47 0.35-5.00 Jan 14, 2022 02:05 PM [place] SED RATE, AUTOMATED Speci men Type: BLOOD No comment enter ed. Ordering Provid er: BAM ANDREW Report Released Date/Time: Dec 14, 2021 03:11 PM Reporting Lab: [facility] [place] [facility] [address] [facility] [address] Performing Lab: [place] [facility] [place] [facility] [address] [facility] [address] SED RATE, AUTOMATED 20 0-20 Jan 14, 2022 02:05 PM [place] VITAMIN D (25-OH) Specime n Type: SERUM No comment enter ed. Ordering Provid er: BAM ANDREW Report Released Date/Time: Dec 14, 2021 03:11 PM Reporting Lab: [facility] [place] [facility] [address] [facility] [address] Performing Lab: [place] [facility] [place] [facility] [address] [facility] [address] VITAMIN D (25-OH) 14 L 20-50 Jan 14, 2022 02:05 PM [place] LIPID PANEL FASTING Speci men Type: SERUM No comment enter ed. Ordering Provid er: BAM ANDREW Report Released Date/Time: Dec 14, 2021 03:11 PM Reporting Lab: [place] [facility] [place] [facility] [address] [facility] [address] Performing Lab: [place] [facility] [place] [facility] [address] [facility] [address] CHOLESTEROL 180 <7-199 TRIGLYCERIDE 132 0-150 LDL calculated 107 0-129 CHOL/HDL 3.8 HDL CHOLESTEROL 47 40-60 Jan 14, 2022 02:05 PM [place] LIVER FUNCTION Specimen Type: SERUM No comment enter ed. Ordering Provid er: BAM ANDREW Report Released Date/Time: Dec 14, 2021 03:11 PM Reporting Lab: [facility] [address] [facility] [address] Performing Lab: [address] [address] PROTEIN,TOTAL 6.1 6.0-8.3 ALBUMIN 2.9 L 3.5-5.0 ALKALINE PHOSPHATASE 49 40-150 AST 14 5-34 ALT 12 <6-55 BILIRUBIN, TOTAL 0.4 0.2-1.2 Jan 14, 2022 02:05 PM [place] BASIC METABOLIC PANEL Spe cimen Type: SERUM (fasting) No comment enter ed. Ordering Provid er: BAM ANDREW Report Released Date/Time: Dec 14, 2021 03:11 PM Reporting Lab: [address] [address] Performing Lab: [address] [address] UREA NITROGEN 18 7-25 GLUCOSE 165 H 65-100 SODIUM 139 135-145 POTASSIUM 4.1 3.5-5.0 CHLORIDE 105 100-110 CO2 27 20-30 CREATININE, Serum 1.59 H 0.50-1.40 eGFR(CKD-EPI 2020) 46 L >60 Jan 14, 2022 02:05 PM [facility] CBC AND DIFF (AUTO) Speci men Type: BLOOD No comment enter ed. Ordering Provid er: BAM ANDREW Report Released Date/Time: Dec 14, 2021 03:11 PM Reporting Lab: [address] [address] Performing Lab: [address] [address] WBC 7.22 4.50-11.00 RBC 4.58 4.23-5.66 HGB 13.4 12.8-17 HCT 39.7 39.2-50.4 MCV 86.7 82-99 MCHC 33.8 30.8-35.1 PLT 247 140-360 RDW-CV 13.0 12.0-16.0 Mclean, Abs 0.71 0.30-1.10 MCH 29.3 26.2-32.6 Neut % 48.5 Lymph % 34.9 Mclean % 9.8 Eos % 5.8 Baso % 0.7 Neut, Abs 3.50 2.20-7.60 Lymph, Abs 2.52 1.00-3.20 Eos, Abs 0.42 0.03-0.44 Baso, Abs 0.05 0.01-0.13 Immature Gran % 0.3 Immature Gran, Abs 0.02 0.00-0.06 Social History: Smoking Status (Most current) and Tobacco Use (All prior to encounter date) This section includes the most current, and the historical, smoking and tobacco-related health factors from the [place] facility where the Encounter took place.Current Smoking Status This section includes the most current smoking, or tobacco-related health factor, from the [place] facility where the Encounter took place. Date/Time Current Smoking Status Comment Facility Dec 14, 2021 02:00 PM VA-TOBACCO QUIT 15 YRS OR MORE [facility] Tobacco Use History This section includes a history of the smoking, or tobacco- related health factors, that were collected on or before the date of the Encounter. The data comes from the [place] facility where the Encounter took place. Date/Time Smoking Status/Tobacco Use Comment Erica rousseau Dec 14, 2021 02:00 PM VA-TOBACCO QUIT 15 YRS OR [facility] September 17, 2020 02:00 PM [...] 02:31 PM VA-TOBACCO QUIT 15 YRS OR [facility] MORE September 19, 2017 01:43 PM QUIT TOBACCO USE > 7 YEARS [facility] September 15, 2016 01:21 PM QUIT TOBACCO USE > 7 YEARS [facility] AGO quit 40 years ago May 12, [...] Encounter. Date/Time Encounter Note(s) Provider Source Jan 19, 2022 01:07 PM TELEHEALTH NOTE: PEDRO LEAVITT IELD LOCAL TITLE: [place] VIDEO CONNECT PSYCHIATRIST NOTE STANDARD TITLE: TELEHEALTH NOTE DATE OF NOTE: JAN 19, 2022@13:07 ENTRY DATE: JAN 19, 2022@13:07:19 AUTHOR: PEDRO LEAVITT EXP COSIGNER: URGENCY: STATUS: COMPLETED [facility] ([facility]VC) Standard Documentation V[facility] Clinician Resources Only: E911 (Emergency Call Relay Center): [phone] [facility] - 988 then press # 1. CW Suicide Coordinator [phone], Ext. [phone]; Back-up Ext. [phone] [facility] Police, Aniyah SANTIAGO [phone] Introduction: Visit is being conducted by [place] [employer]. identified with 2 identifiers: [X] Full Name [X] Date of [ ] [place] ID Card Emergency Plan: [employer] confirmed and/or pro vided the following information in case of emergency or technology failure. PATIENT PHONE - PHONE NUMBER [CELLULAR] - Is patient phone number correct, if not, enter b elow: 's phone number: RIAN [address] [place], [place], [address] [employer]'s present location and address for appoi ntment: chart [employer]'s emergency contact name and phone numbe r: chart reported that location is private and sa fe: Yes Informed Consent: informed of the risks and benefits of Te lehealth video care. [employer] has the right to refuse video services. If refuses video visit, a whbj-cm-fqal visit will be scheduled. [employer] verbalized consent for this video visit: Yes [employer] provided consent for any other persons p resent for visit: N/A If yes, who and relationship to patient: Secure visit: Visit was locked for security and privacy:Yes 30 min for encounter, including chart review, in [facility], charting chart reviewed Patient again presents as relatively sta ble, but ongoing medical stressors. He feels depression is partially improved with the Trintellix. Ongoing PTSD symptoms including insomnia, nightmares, intrusi ve memories, hypervigilance, irritability, avoidant behavior, increased start le response. Affect brightens appropriately. Pt denies SI and violent ideation . Well organized thoughts. No h/o psychotic sx's. No PI or delusi ons presented. Speech normal/fluent. Cognitive exam grossly intact. Gagnon s interests, likes to read. After discussi on, we decided to increase Trintellix, see below, to further improve response f or depression and PTSD and anxiety. We also decided to try trazodone again to help with sleep, see below. 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 Renal Impairment ([facility] 528950081) 2. Depression ([facility] [id number]) 3. Co-management 4. Tear of left rotator cuff 5. Posttraumatic stress disorder 6. Type 2 diabetes mellitus in obese 7. Mixed hyperlipidemia 8. Restless legs 9. Insomnia 10. Chronic pain 11. Herniated Disc * 12. Sleep apnea (SNOMED CT 60906926) 13. Gastroesophageal Reflux Disorder 14. Coronary artery disease (SNOMED CT 35788528) 15. Glaucoma 16. Osteoarthritis (SNOMED CT 744805866) 17. Essential hypertension (SNOMED CT 44926624) 18. Hypercholesterolemia (SNOMED CT 37958760) 19. Obesity Active Outpatient Medications (including Supplie [...] ACTIVE INTO EACH EYE TWICE DAILY 8) GLUCOSE 4GM CHEW TAB CHEW FOUR [...] DIABE ORLANDO PRESCRIBER : DR. LYNNETTE LEE 10) INSULIN SYRINGE 1ML 31G 8MM USE 1 SYRINGE TW ICE DAILY ACTIVE FOR INSULIN INJECTIONS 11) INSULIN,ASPART,HUMAN 100 UNIT/ML INJ INJECT 10-12 ACTIVE UNITS SUBCUTANEOUSLY EVERY MORNING 30 MINUTES BEFORE BREAKFAST NEEDED AND INJECT 25-28 UNI TS EVERY EVENING 12) METOPROLOL SUCCINATE 200MG SA TAB TAKE ONE T ABLET BY ACTIVE MOUTH ONCE DAILY FOR BLOOD PRESSURE/HEART 13) OMEPRAZOLE 20MG CAP,EC TAKE TWO CAPSULES BY MOUTH ACTIVE EVERY MORNING 30 MINUTES BEFORE BREAKFAST 14) VORTIOXETINE 5MG TAB TAKE ONE TABLET BY MOUT H ONCE ACTIVE DAILY Active Non-VA Medications Status 1) Non-VA AMLODIPINE [...] MOUTH ACTIVE EVERY DAY 27 Total Medications p[facility] [place] PAST PSYCH MED HX: prozac -- not help ambien -- has not taken for awhile amitriptyline -- has not take for awhile for didier n denies other psych meds hx zoloft -- not help effexor hydroxyzine -- not help sleep trazodone -- GAGNON (on further review, patient is n ot certain he had a headache with trazodone) remeron -- did not add benefit melatonin [...] denied suicidal and violent ideation, but the [facility] information and number were reviewed [...] felt that it decreased irritability. I also previously offered pt CBT for insomnia -- pt declined Note that the patient has tapered off of Cymbalt a, see my prior notes Patient reports partial improvement with Trintellix so far, which is low-dose, after discussion we decided to increase Trintell ix to 10 mg daily for depression anxiety (and there is no dosing adjus tment needed for renal impairment). I asked patient to call me if he gagnon s any side effects with the increase. So far he has tolerated without side e ffects. After discussion, we decided to try trazodone ag ain for sleep, start with trazodone 25 mg nightly as n eeded insomnia, patient may increase to 50 mg if 25 mg not sufficient for sleep. Patient on further review does not feel he had a headache with trazodone in the past, but he will call if this is a problem during this trial. I reviewed the medica tion instructions/plan, side effect profile, and treatment expectations with the patient. He discus sed this with me and demonstrated good understanding. The risk of priapism with trazodone was reviewed with the patient. The patient was instructed to get immediate medical attention if he has priapism. The risk of next-day sedation and of falling with trazodo ne was also reviewed with the patient. The patient feels benefits outweigh risks -- thi s is reasonable. we again discussed options including prazosin fo r insomnia/nightmares -- he does not want prazosin due to [...] of using cpap for sleep apnea. Patient again reports uses CPAP every nig ht Patient denies recent gambling -- recommended GA rtc 1-2 mo for med f/u or sooner thr open access prn by calling Patient request supply of psychiatric me dication be increased because he finds it difficult to stay on the medication with just 30-day supplies, this is reasonable, benefits outweigh risk, for now incr ease to 60 days, except for trazodone which will be kept for 30 days until w e see patient's response Medication Reconciliation: Outpatient: Has the patient been taking medications as docu mented in the EMLR? YES: The patient has been taking medications as documented in the EMLR. Essential Medication List for Review used to co mplete this medication reconciliation. INCLUDED IN THIS LIST: Alphabetical list of act ashley outpatient [facility] ([facility] an d dispensed from another [place] or [facility] facility (remote) as well as inpatien t [...] /justine/ PEDRO LEAVITT MD STAFF PSYCHIATRIST Signed: 01/19/2022 18:35 Receipt Acknowledged By: * AWAITING SIGNATURE * LALO LIGHT * AWAITING SIGNATURE * EDITH TEJEDA
== END 2022-02-03 05:30 | disposition left against medical advice (07) ==
PROVIDERS: Emergency Provider Emergency Medicine; PCP Internal Medicine
DX: R07.9 Chest pain, unspecified (principal); I11.0 Hypertensive heart disease with heart failure; I50.9 Heart failure, unspecified; E11.9 Type 2 diabetes mellitus without complications; E78.00 Pure hypercholesterolemia, unspecified; Z79.02 Long term (current) use of antithrombotics/antiplatelets
CPT/HCPCS: 36415; 71046; 80053; 84484; 85025; 93005; 99283

== ENCOUNTER 2022-11-28 09:41 | Outpatient (AMB) | payer MEDICARE, SELFPAY ==
--- NOTE | 2022-11-28 09:55 | MHC.OFFVIS ---
Intake Vital Signs 11/28/22 10:03 Height 5 ft 8 in Weight 260 lb BMI 39.5 Intake Visit Reasons: New prob/ right shoulder px/no injury Intake Note: Mati a 72 year old right hand dominant male presents today for an evaluation of right shoulder. Patient reports a fall about 3 weeks to a month ago and continues to have soreness. Limited ROM. His pain starts in shoulder and will radiate down to his bicep. He has numbness and tingling in his hand. Finds no relief with Bengay. He is prescribed oxycodone and finds little relief. Allergies gabapentin [GABAPENTIN] Allergy (Severe, Verified 11/28/22 10:03) SHORTNESS OF BREATH naproxen [NAPROXEN] Allergy (Unknown, Verified 11/28/22 10:03) KIDNEY SHUT DOWN TO ALL NAPROXEN PRODUCTS Sulfa (Sulfonamide Antibiotics) [SULFA (SULFONAMIDE ANTIBIOTICS)] Allergy (Unknown, Verified 11/28/22 10:03) HIVES sulfur Allergy (Unknown, Verified 11/28/22 10:03) unknown anti-inflammatory Allergy (Unknown, Uncoded 11/28/22 10:03) unknown sulfa Allergy (Unknown, Uncoded 11/28/22 10:03) unknown HPI New prob/ right shoulder px/no injury HPI Details 72-year-old right hand dominant male who presents to the office today for evaluation of right shoulder pain s/p fall about 3 weeks ago. He states he has pain and limited ROM in his right shoulder which radiates to the anterior aspect of his shoulder and bicep region. His pain is aggravated with reaching out and holding objects. He also c/o numbness and tingling in his hand. He denies difficulty sleeping at night due to the pain. He was prescribed oxycodone for his pain which provided him mild relief. He finds no relief with Bengay. He has a stimulator implanted in his left lower back. [facility] Medical History Acute medial meniscus tear of right knee Anxiety and depression Arthritis Back pain CAD (coronary artery disease) CHF (congestive heart failure) Chronic, continuous use of opioids Complex regional pain syndrome i of left lower limb COPD (chronic obstructive pulmonary disease) Degenerative arthritis of knee, bilateral Diabetes Elevated cholesterol GERD (gastroesophageal reflux disease) HTN (hypertension) Internal derangement of left knee Internal derangement of right knee Myocardial infarction On beta sean at home Osteoarthritis of right knee Peripheral neuropathy Pes equinus, acquired PTSD (post-traumatic stress disorder) Sleep apnea Surgical History History of back surgery History of cardiac cath History of open reduction and internal fixation (ORIF) procedure History of penile implant Hx of arthroscopy of left knee Hx of bariatric surgery Hx of eye surgery Hx of repair of left rotator cuff Hx of sinus surgery Social History Patient Tobacco Use Status: Former Tobacco user Current occupational status: retired 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 Review of Systems Const All systems reviewed & are unremarkable except as noted in HPI and below Physical Exam Vital Signs: BMI result Body Mass Index 39.5 Extrem Other: Right shoulder normal to inspection. Tenderness over the bicipital groove and along the deltoid region of the shoulder. Forward flexion to 175, external rotation to 90, internal rotation to S1. He does have some weakness with RTC strength testing when compared to contralateral side. Positive O'Briens. Negative Mello and cross body abduction. NVI. Results Reviewed Results Reviewed: X-rays of the right shoulder obtained in the office today show moderate AC joint arthritis and mild glenohumeral joint arthritis. Assessment & Plan Assessment & Plan (1) Acromioclavicular joint arthritis: Code(s): M19.019 - Primary osteoarthritis, unspecified shoulder (2) Arthritis of right glenohumeral joint: Code(s): M19.011 - Primary osteoarthritis, right shoulder Plan He will work on some home exercises which were given to him in the office today. An MRI of the right shoulder was also ordered to further evaluate integrity of the RTC. Once this is complete, he will see us back to review the results. Orders: Orders XR shoulder RT min 2V Today M25.511 - Pain in right shoulder MR shoulder RT wo con Today M12.811 - Other specific arthropathies, not elsewhere classified, right shoulder, M75.101 - Unspecified rotator cuff tear or rupture of right shoulder, not specified as traumatic Patient Instructions: Scribed for Vikki Shields PA-C, by Ignacio Torrez medical record technician, on 11/28/2022 at 9:45 AM Vikki BARROS PA-C, have personally reviewed and agree with the information entered by the scribe. Coding Level of Care Code New Pt Level 3 (25195) Diagnoses Acromioclavicular joint arthritis M19.019 Arthritis of right glenohumeral joint M19.011
[2022-11-28 10:03] VITALS: BMI 39.5
== END 2022-11-28 10:09 | disposition home or self-care (01) ==
PROVIDERS: PCP Internal Medicine; Visit Provider Physician Assistant
DX: M19.011 Primary osteoarthritis, right shoulder (principal)
CPT/HCPCS: 99213

== ENCOUNTER 2022-11-28 10:42 | Outpatient (REF) | payer MEDICARE, SELFPAY ==
--- NOTE | ~2022-11-28 | XR_ITS ---
EXAMINATION: XR SHOULDER, RIGHT CLINICAL INFORMATION: Reason for Exam M25.511 - Pain in right shoulder COMPARISON: None TECHNIQUE: Three views of the shoulder. FINDINGS: No acute fracture or dislocation. Moderate degenerative changes of the shoulder with degenerative spurring and loss of the acromioclavicular joint space. Soft tissues are unremarkable. XR/XR shoulder RT min 2V IMPRESSION: Moderate degenerative changes of the shoulder.
== END 2022-11-28 10:43 | disposition home or self-care (01) ==
LOC: HO.HOSX 10:42
PROVIDERS: Visit Provider Physician Assistant
DX: M19.011 Primary osteoarthritis, right shoulder (principal)
CPT/HCPCS: 73030

== ENCOUNTER 2023-03-14 19:34 | Outpatient (REF) | payer MEDICARE, SELFPAY ==
--- NOTE | ~2023-03-14 | MR_ITS ---
EXAMINATION: MR SHOULDER WITHOUT CONTRAST, RIGHT CLINICAL INFORMATION: Shoulder pain. History of fall. COMPARISON: X-ray 11/28/2022 TECHNIQUE: MRI of the shoulder without contrast was performed on a high-field scanner. FINDINGS: ROTATOR CUFF: Mild supraspinatus tendinosis. Partial-thickness intrasubstance/bursal aspect tear in the distal anterior fibers measuring 1.4 x 1.6 cm (AP x ML). Infraspinatus, teres minor are intact. Mild-moderate subscapularis tendinosis, mild articular surface fraying distally. Mild supraspinatus muscle atrophy without significant fatty infiltration. BICEPS: Mild proximal biceps tendinosis. CORACOACROMIAL ARCH: The undersurface of the acromion is flat with lateral downsloping. Moderate-severe acromioclavicular arthritis. Small fluid in the subacromial subdeltoid space. LABRUM/CAPSULE: Degeneration with fraying in the superior and posterosuperior labrum. Intact inferior capsule. GLENOHUMERAL JOINT/MARROW: Small marginal glenoid spurring. Subchondral edema in the superior/posterior glenoid. No fracture. No aggressive marrow replacing lesion. Small joint effusion. Deltoid muscle appears unremarkable. No axillary lymphadenopathy. MR/MR shoulder RT wo con IMPRESSION: 1. Mild supraspinatus tendinosis. 1.4 x 1.6 cm partial-thickness tear anteriorly. 2. Mild-moderate subscapularis tendinosis, mild articular surface fraying distally. 3. Mild proximal biceps tendinosis. 4. Superior and posterosuperior labral degenerative fraying. 5. Moderate-severe acromioclavicular arthritis. Mild subacromial subdeltoid bursitis. 6. Mild glenohumeral joint arthritis. Small effusion.
== END 2023-03-14 19:35 | disposition home or self-care (01) ==
LOC: HO.MRI 19:34
PROVIDERS: Visit Provider Physician Assistant
DX: M12.811 Other specific arthropathies, not elsewhere classified, right shoulder (principal); M75.101 Unspecified rotator cuff tear or rupture of right shoulder, not specified as traumatic
CPT/HCPCS: 73221

== ENCOUNTER 2023-04-28 12:35 | Outpatient (AMB) | payer MEDICARE, SELFPAY ==
--- NOTE | 2023-04-28 12:38 | MHC.OFFVIS ---
Intake Vital Signs 04/28/23 12:39 Height 5 ft 8 in Weight 260 lb BMI 39.5 Intake Visit Reasons: OV-Right shoulder MRI review Intake Note: Mati is a 72 year old male who presents today for an MRI follow up of his right shoulder Allergies gabapentin [GABAPENTIN] Allergy (Severe, Verified 11/28/22 10:03) SHORTNESS OF BREATH naproxen [NAPROXEN] Allergy (Unknown, Verified 11/28/22 10:03) KIDNEY SHUT DOWN TO ALL NAPROXEN PRODUCTS Sulfa (Sulfonamide Antibiotics) [SULFA (SULFONAMIDE ANTIBIOTICS)] Allergy (Unknown, Verified 11/28/22 10:03) HIVES sulfur Allergy (Unknown, Verified 11/28/22 10:03) unknown anti-inflammatory Allergy (Unknown, Uncoded 11/28/22 10:03) unknown sulfa Allergy (Unknown, Uncoded 11/28/22 10:03) unknown HPI OV-Right shoulder MRI review HPI Details Naga returns for right shoulder MRI review. He had been having ongoing didier nfor months but it has subsided somewhat over the past few weeks. [facility] Medical History Pes equinus, acquired Complex regional pain syndrome i of left lower limb Osteoarthritis of right knee Chronic, continuous use of opioids PTSD (post-traumatic stress disorder) Anxiety and depression Peripheral neuropathy Arthritis Back pain Diabetes GERD (gastroesophageal reflux disease) COPD (chronic obstructive pulmonary disease) Sleep apnea On beta sean at home Elevated cholesterol CHF (congestive heart failure) Myocardial infarction CAD (coronary artery disease) HTN (hypertension) Acute medial meniscus tear of right knee Internal derangement of right knee Internal derangement of left knee Degenerative arthritis of knee, bilateral Surgical History History of back surgery History of cardiac cath Hx of sinus surgery Hx of eye surgery History of penile implant History of open reduction and internal fixation (ORIF) procedure Hx of arthroscopy of left knee Hx of repair of left rotator cuff Hx of bariatric surgery Social History Patient Tobacco Use Status: Former Tobacco user Current occupational status: retired 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 Physical Exam Vital Signs: BMI result Body Mass Index 39.5 Extrem Other: 30/90/130/ painful but negativbe EC +H/N Results Reviewed Results Reviewed: I personally reviewed the MR images. Mild supraspinatus tendinosis. 1.4 x 1.6 cm partial-thickness tear anteriorly. 2. Mild-moderate subscapularis tendinosis, mild articular surface fraying distally. 3. Mild proximal biceps tendinosis. 4. Superior and posterosuperior labral degenerative fraying. 5. Moderate-severe acromioclavicular arthritis. Mild subacromial subdeltoid bursitis. 6. Mild glenohumeral joint arthritis. Small effusion. Assessment & Plan Assessment & Plan (1) Bursitis of right shoulder: Code(s): M75.51 - Bursitis of right shoulder Plan: Multiple degenerative findings on MRI but no full thickness rtc tear. Symptomatically faring ok right now. No intervention warranted. cont HEP and may follow up as needed. Coding Level of Care Code Est Pt Level 4 (95553) Diagnoses Bursitis of right shoulder M75.51
[2023-04-28 12:39] VITALS: BMI 39.5
== END 2023-04-28 14:10 | disposition home or self-care (01) ==
PROVIDERS: PCP Internal Medicine; Visit Provider Orthopaedic Surgery
DX: M75.51 Bursitis of right shoulder (principal)
CPT/HCPCS: 99214

== ENCOUNTER → 2023-04-28 12:35 | Outpatient (BNVA) | payer MEDICARE, SELFPAY | PROVIDERS: PCP Internal Medicine; Visit Provider Orthopaedic Surgery | DX: M75.51 Bursitis of right shoulder (principal) | CPT/HCPCS: 99212 ==

== ENCOUNTER 2023-05-26 14:15 | Outpatient (AMB) | payer MEDICARE, SELFPAY ==
--- NOTE | 2023-05-26 14:23 | HO.NEPHOV_ITS ---
HPI HPI Comments History of Present Illness Details I had the pleasure of seeing Juan Carlos in follow-up of his chronic kidney disease secondary to diabetic nephropathy. He is hypertensive. He has been having a right foot drop and is wearing a brace. His blood sugar control is better and his blood pressure has been at goal. He denies any chest pain, shortness of breath, paroxysmal nocturnal dyspnea, orthopnea, pedal edema, urinary symptoms, nausea, vomiting, diarrhea. He does not take any nonsteroidal anti-inflammatory medications and maintains good hydration. He has no orthostatic symptoms. He claims to be compliant with his medications. [facility] Medical History (Updated 05/29/23 @ 21:16 by Karlos Wagner MD) Pes equinus, acquired Complex regional pain syndrome i of left lower limb Osteoarthritis of right knee Chronic, continuous use of opioids PTSD (post-traumatic stress disorder) Anxiety and depression Peripheral neuropathy Arthritis Back pain Diabetes GERD (gastroesophageal reflux disease) COPD (chronic obstructive pulmonary disease) Sleep apnea On beta sean at home Elevated cholesterol CHF (congestive heart failure) Myocardial infarction CAD (coronary artery disease) HTN (hypertension) Acute medial meniscus tear of right knee Internal derangement of right knee Internal derangement of left knee Degenerative arthritis of knee, bilateral Surgical History History of back surgery History of cardiac cath Hx of sinus surgery Hx of eye surgery History of penile implant History of open reduction and internal fixation (ORIF) procedure Hx of arthroscopy of left knee Hx of repair of left rotator cuff Hx of bariatric surgery Social History Patient Tobacco Use Status: Former Tobacco user Current occupational status: retired 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 Vital Signs 05/26/23 14:24 Height 5 ft 8 in Weight 222 lb BMI 33.8 BP 124/70 Blood Pressure Location Lt brachial Position Sitting Pulse 76 Pulse Source Pulse Oximeter Pulse Oximetry (%) 96 Oxygen Delivery Method Room Air Physical Exam Vital Signs: Last Vital Signs Pulse 76 05/26/23 14:24 BP 124/70 05/26/23 14:24 Pulse Ox 96 05/26/23 14:24 Oxygen Delivery Method Room Air 05/26/23 14:24 BMI result Body Mass Index 33.8 Const General: comfortable and no acute distress Orientation/consciousness: patient oriented x3 HEENT Head: Yes normocephalic Mouth: Normal oral and palatal mucosa present Eyes EOM: EOMs intact bilaterally Neck Neck: Yes supple Resp Auscultation: clear to auscultation bilaterally Cardio Jugular venous distension: no JVD Rate: regular rate GI Palpation (GI): Soft to palpation Auscultation: normal bowel sounds General: Yes no CVA tenderness Back/Spine/Pelvis Back: no CVA tenderness Skin General skin exam: no rashes or lesions noted Neuro General: patient oriented x3 and moves all extremities Extrem Other: Right leg has foot drop and so was wearing a brace Assessment & Plan Assessment & Plan (1) Diabetic nephropathy: Code(s): E11.21 - Type 2 diabetes mellitus with diabetic nephropathy Qualifiers: Diabetes mellitus type: type 2 Qualified Code(s): E11.21 - Type 2 diabetes mellitus with diabetic nephropathy (2) Stage 3b chronic kidney disease (CKD): Code(s): N18.32 - Chronic kidney disease, stage 3b Plan Juan Carlos has stage III CKD at baseline. He has diabetic nephropathy. He is tolerating angiotensin receptor sean. His volume status is optimal. His blood pressure is at goal. He has a perfect candidate for SGLT2 inhibitor. He is unsure whether he is taking Farxiga or Jardiance. I asked him to contact my office to give all the details. I encouraged him to maintain good hydration, keep his blood sugar at goal, avoid nonsteroidal anti-inflammatories and maintain his blood pressure on target. I did not make any medication changes today rather ordered follow-up blood work for continued management. All questions answered. Follow-up given. Orders: Orders Electrolytes 05/26/23. - Type 2 diabetes mellitus with diabetic nephropathy, N18.32 - Chronic kidney disease, stage 3b Immunofixation Pnl, Serum 05/26/23. - Type 2 diabetes mellitus with diabetic nephropathy, N18.32 - Chronic kidney disease, stage 3b Parathyroid Hormone Intact 05/26/23 E11. - Type 2 diabetes mellitus with diabetic nephropathy, N18.32 - Chronic kidney disease, stage 3b Calcium 05/26/23. - Type 2 diabetes mellitus with diabetic nephropathy, N18.32 - Chronic kidney disease, stage 3b Creatinine 05/26/23 E11. - Type 2 diabetes mellitus with diabetic nephropathy, N18.32 - Chronic kidney disease, stage 3b Blood Urea Nitrogen 01/19/24 E11.21 - Type 2 diabetes mellitus with diabetic nephropathy, N18.32 - Chronic kidney disease, stage 3b Vitamin D 25-OH Total 05/26/23 E11. - Type 2 diabetes mellitus with diabetic nephropathy, N18.32 - Chronic kidney disease, stage 3b Phosphorus 05/26/23 E11.21 - Type 2 diabetes mellitus with diabetic nephropathy, N18.32 - Chronic kidney disease, stage 3b Coding Level of Care Code Est Pt Level 3 (44165) Diagnoses Diabetic nephropathy associated with type 2 diabetes mellitus Diabetes mellitus type: type 2 Stage 3b chronic kidney disease (CKD) N18.32 Results Reviewed Nephrology Results: Hgb 13.4 g/dl (14.0-18.0) L 02/02/22 WBC 7.3 X10*3/uL (4.8-10.8) 02/02/22 Plt Count 288 X10*3/uL (160-400) 02/02/22 Sodium 146 mmol/L (135-145) H 02/02/22 Potassium 4.5 mmol/L (3.3-5.1) 02/02/22 Chloride 108 mmol/L (96-108) 02/02/22 Carbon Dioxide 27 mmol/L (22-29) 02/02/22 BUN 18 mg/dL (9-16) H 02/02/22 Creatinine 1.77 mg/dL (0.5-1.4) H 02/02/22 Calcium 9.4 mg/dL (8.4-10.2) 02/02/22
[2023-05-26 14:24] VITALS: BP 124/70; PULSE 76; O2SAT 96; BMI 33.8
== END 2023-05-26 14:54 | disposition home or self-care (01) ==
PROVIDERS: PCP Internal Medicine; Visit Provider Internal Medicine Nephrology
DX: E11.21 Type 2 diabetes mellitus with diabetic nephropathy (principal); N18.32 Chronic kidney disease, stage 3b
CPT/HCPCS: 99213

== ENCOUNTER → 2023-05-26 14:15 | Outpatient (BNVA) | payer MEDICARE, SELFPAY | PROVIDERS: PCP Internal Medicine; Visit Provider Internal Medicine Nephrology | DX: E11.21 Type 2 diabetes mellitus with diabetic nephropathy (principal); E11.22 Type 2 diabetes mellitus with diabetic chronic kidney disease; N18.32 Chronic kidney disease, stage 3b | CPT/HCPCS: 99212 ==

== ENCOUNTER 2023-08-25 14:38 | Outpatient (AMB) | payer MEDICARE, SELFPAY ==
[2023-08-25 14:57] VITALS: BP 162/70; PULSE 54; O2SAT 97; BMI 34.4
--- NOTE | 2023-08-25 14:57 | HO.NEPHOV_ITS ---
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 Accompanied by: Self / Same As Patient Allergies gabapentin [GABAPENTIN] Allergy (Severe, Verified 08/25/23 14:59) SHORTNESS OF BREATH naproxen [NAPROXEN] Allergy (Unknown, Verified 08/25/23 14:59) KIDNEY SHUT DOWN TO ALL NAPROXEN PRODUCTS Sulfa (Sulfonamide Antibiotics) [SULFA (SULFONAMIDE ANTIBIOTICS)] Allergy (Unknown, Verified 08/25/23 14:59) HIVES sulfur Allergy (Unknown, Verified 08/25/23 14:59) unknown anti-inflammatory Allergy (Unknown, Uncoded 11/28/22 10:03) unknown sulfa Allergy (Unknown, Uncoded 11/28/22 10:03) unknown HPI Comments Details: I had the pleasure of seeing Juan Carlos in follow-up of his chronic kidney disease secondary to diabetic nephropathy. He is hypertensive with good blood pressure control on current medications. He has been having a right foot drop and is wearing a brace. He denies any chest pain, shortness of breath, paroxysmal nocturnal dyspnea, orthopnea, pedal edema, urinary symptoms, nausea, vomiting, diarrhea. He does not take any nonsteroidal anti-inflammatory medications and maintains good hydration. He has no orthostatic symptoms. He claims to be tolerating his medications including Jardiance [facility] Medical History (Updated 08/25/23 @ 15:25 by Karlos Wagner MD) Pes equinus, acquired Complex regional pain syndrome i of left lower limb Osteoarthritis of right knee Chronic, continuous use of opioids PTSD (post-traumatic stress disorder) Anxiety and depression Peripheral neuropathy Arthritis Back pain Diabetes GERD (gastroesophageal reflux disease) COPD (chronic obstructive pulmonary disease) Sleep apnea On beta sean at home Elevated cholesterol CHF (congestive heart failure) Myocardial infarction CAD (coronary artery disease) HTN (hypertension) Acute medial meniscus tear of right knee Internal derangement of right knee Internal derangement of left knee Degenerative arthritis of knee, bilateral Surgical History History of back surgery History of cardiac cath Hx of sinus surgery Hx of eye surgery History of penile implant History of open reduction and internal fixation (ORIF) procedure Hx of arthroscopy of left knee Hx of repair of left rotator cuff Hx of bariatric surgery Social History Patient Tobacco Use Status: Former Tobacco user Current occupational status: retired 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 Physical Exam Vital Signs: Last Vital Signs Pulse 54 08/25/23 14:57 BP 162/70 H 08/25/23 14:57 Pulse Ox 97 08/25/23 14:57 Oxygen Delivery Method Room Air 08/25/23 14:57 BMI result Body Mass Index 34.4 Const General: comfortable and no acute distress Orientation/consciousness: patient oriented x3 HEENT Head: Yes normocephalic Mouth: Normal oral and palatal mucosa present Eyes EOM: EOMs intact bilaterally Neck Neck: Yes supple Resp Auscultation: clear to auscultation bilaterally Cardio Jugular venous distension: no JVD Rate: regular rate GI Palpation (GI): Soft to palpation Auscultation: normal bowel sounds General: Yes no CVA tenderness Back/Spine/Pelvis Back: no CVA tenderness Skin General skin exam: no rashes or lesions noted Neuro General: patient oriented x3 and moves all extremities Extrem Other: R foot on brace General: Yes no pedal edema Results Reviewed Nephrology Results: Hgb 13.4 g/dl (14.0-18.0) L 02/02/22 WBC 7.3 X10*3/uL (4.8-10.8) 02/02/22 Plt Count 288 X10*3/uL (160-400) 02/02/22 Sodium 146 mmol/L (135-145) H 02/02/22 Potassium 4.5 mmol/L (3.3-5.1) 02/02/22 Chloride 108 mmol/L (96-108) 02/02/22 Carbon Dioxide 27 mmol/L (22-29) 02/02/22 BUN 18 mg/dL (9-16) H 02/02/22 Creatinine 1.77 mg/dL (0.5-1.4) H 02/02/22 Calcium 9.4 mg/dL (8.4-10.2) 02/02/22 Assessment & Plan Assessment & Plan (1) Stage 3b chronic kidney disease (CKD): Code(s): N18.32 - Chronic kidney disease, stage 3b Category: Medical (2) HTN (hypertension): Code(s): I10 - Essential (primary) hypertension Category: Medical Qualifiers: Hypertension type: primary hypertension Qualified Code(s): I10 - Essential (primary) hypertension (3) CKD stage G3b/A3, GFR 30-44 and albumin creatinine ratio >300 mg/g: Code(s): N18.32 - Chronic kidney disease, stage 3b Category: Medical (4) Diabetic nephropathy: Code(s): E11.21 - Type 2 diabetes mellitus with diabetic nephropathy Category: Medical Qualifiers: Diabetes mellitus type: type 2 Qualified Code(s): E11.21 - Type 2 diabetes mellitus with diabetic nephropathy Plan Juan Carlos has stage III CKD at baseline. He has diabetic nephropathy. He is tolerating angiotensin receptor sean and Jardiance. His volume status is optimal. His blood pressure is at goal. I encouraged him to maintain good hydration, keep his blood sugar at goal, avoid nonsteroidal anti-inflammatories and maintain his blood pressure on target. I did not make any medication changes today rather ordered follow-up blood work for continued management. All questions answered. Follow-up given. Orders: Orders Creatinine Today E11.21 - Type 2 diabetes mellitus with diabetic nephropathy, I10 - Essential (primary) hypertension, N18.32 - Chronic kidney disease, stage 3b Blood Urea Nitrogen Today E11.21 - Type 2 diabetes mellitus with diabetic nephropathy, I10 - Essential (primary) hypertension, N18.32 - Chronic kidney disease, stage 3b Electrolytes Today E11.21 - Type 2 diabetes mellitus with diabetic nephropathy, I10 - Essential (primary) hypertension, N18.32 - Chronic kidney disease, stage 3b
== END 2023-08-25 15:31 | disposition home or self-care (01) ==
PROVIDERS: PCP Internal Medicine; Visit Provider Internal Medicine Nephrology
DX: N18.32 Chronic kidney disease, stage 3b (principal); I10 Essential (primary) hypertension; E11.21 Type 2 diabetes mellitus with diabetic nephropathy
CPT/HCPCS: 99214

== ENCOUNTER → 2023-08-25 14:38 | Outpatient (BNVA) | payer MEDICARE, SELFPAY | PROVIDERS: PCP Internal Medicine; Visit Provider Internal Medicine Nephrology | DX: E11.21 Type 2 diabetes mellitus with diabetic nephropathy (principal); I12.9 Hypertensive chronic kidney disease with stage 1 through stage 4 chronic kidney disease, or unspecified chronic kidney disease; N18.32 Chronic kidney disease, stage 3b | CPT/HCPCS: 99212 ==

== ENCOUNTER 2023-09-04 22:56 | Emergency (ER) | payer MEDICARE, SELFPAY ==
[2023-09-04 23:07] VITALS: BP 134/80; PULSE 60; O2SAT 96
[2023-09-04 23:17] VITALS: BP 125/50; PULSE 59; RESP 18; TEMP 36.6; O2SAT 96; BMI 33.3
[2023-09-04 23:23] VITALS: BP 103/58; PULSE 58
[2023-09-04 23:24] VITALS: BP 97/53; PULSE 64
[2023-09-04 23:27] VITALS: BP 112/34; PULSE 63
--- NOTE | 2023-09-04 23:36 | ECG_ITS ---
Test Reason : WEAKNESS Blood Pressure : / mmHG Vent. Rate : 055 BPM Atrial Rate : 055 BPM P-R Int : 174 ms QRS Dur : 096 ms QT Int : 466 ms P-R-T Axes : 012 -22 035 degrees QTc Int : 445 ms Sinus bradycardia with sinus arrhythmia Otherwise normal ECG When compared with ECG of 02-FEB-2022 15:46, No significant change was found Referred By: Venessa Fagan Electronically Signed By:ERICKA FERNÁNDEZ
--- NOTE | 2023-09-04 23:44 | ED_ITS ---
HPI - General Adult General Chief complaint: Weakness Stated complaint: LETHARGIC Time Seen by Provider: 09/04/23 23:09 Source: patient and EMS Mode of arrival: EMS Limitations: no limitations History of Present Illness HPI narrative: Patient comes to the emergency room via ambulance from home. The according to EMS, the patient's called EMS because the patient seemed a bit more weak and tired than usual. Seems that patient has had multiple episodes of staring off into space and not answering questions. Patient states that he feels a bit more somnolent than usual but has no pain and feels well otherwise. Denies chest pain or shortness of breath, no urinary discomfort. Related Data Home Medications ?Medication ?Instructions ?Recorded ?Confirmed amlodipine 5 mg tablet 1 tab PO DAILY 04/09/20 04/15/20 atorvastatin 80 mg tablet 1 tab PO DAILY 04/09/20 04/15/20 brimonidine 0.2 %-timolol 0.5 % 1 drp BID 04/09/20 04/15/20 eye drops (Combigan) fenofibrate 54 mg tablet 1 tab PO BEDTIME 04/09/20 04/15/20 furosemide 40 mg tablet (Lasix) 40 mg PO BID PRN Edema 04/09/20 04/15/20 losartan 100 mg tablet 1 tab PO DAILY 04/09/20 04/15/20 nitroglycerin 0.4 mg sublingual 1 tab sublingual NEEDED PRN 04/09/20 04/15/20 tablet Chest Pain omeprazole 20 mg capsule,delayed 20 mg PO DAILY 04/09/20 04/15/20 release ropinirole 3 mg tablet 1 tab PO BEDTIME PRN Restless 04/09/20 04/15/20 Leg(S) aspirin 81 mg tablet,delayed 81 mg PO DAILY 08/08/23 release bimatoprost 0.03 % drops with 1 drp topical BEDTIME 08/08/23 applicator, eyelash base carboxymethylcellulose sodium 0.5 1 drp ophthalmic (eye) QID 08/08/23 % eye drops in a dropperette cyclosporine 0.05 % eye drops 1 drp ophthalmic (eye) BID 08/08/23 divalproex 500 mg tablet,delayed 500 mg PO DAILY 08/08/23 release empagliflozin 25 mg tablet 12.5 mg PO DAILY 08/08/23 insulin glargine-yfgn 100 unit/mL 31 unit subcut DAILY 08/08/23 (3 mL) subcutaneous pen metoprolol succinate 200 mg 200 mg PO DAILY 08/08/23 tablet,extended release 24 hr semaglutide 1 mg/dose (4 mg/3 mL) 1 mg subcut QWEEK 08/08/23 subcutaneous pen injector timolol 0.5 % eye drops 1 drp ophthalmic (eye) BID 08/08/23 trazodone 100 mg tablet 50 mg PO BEDTIME PRN 08/08/23 ubrogepant 100 mg tablet mg PO PRN 08/08/23 vortioxetine 20 mg tablet 20 mg PO DAILY 08/08/23 Allergies Allergy/AdvReac Type Severity Reaction Status Date / Time gabapentin [GABAPENTIN] Allergy Severe SHORTNESS Verified 09/04/23 23:19 OF BREATH naproxen [NAPROXEN] Allergy Unknown KIDNEY Verified 09/04/23 23:19 SHUT DOWN TO ALL NAPROXEN PRODUCTS Sulfa (Sulfonamide Allergy Unknown HIVES Verified 09/04/23 23:19 Antibiotics) [SULFA (SULFONAMIDE ANTIBIOTICS)] sulfur Allergy Unknown unknown Verified 09/04/23 23:19 anti-inflammatory Allergy Unknown unknown Uncoded 09/04/23 23:19 sulfa Allergy Unknown unknown Uncoded 09/04/23 23:19 Review of Systems 2 Review of Systems: Constitutional : No Weight loss, No Fever, No Chills, No Night Sweats, or fatigue than usual ENT/Mouth : No Hearing loss, No Ear Pain, No Nasal Congestion, No Sinus Pain, No Hoarseness, No sore throat, No Rhinorrhea, No Swallowing Difficulty Eyes: No Eye Pain, No Swelling, No Redness, No Foreign Body, No Discharge, No Vision Changes Cardiovascular : No Chest Pain, No SOB, No Dyspnea on Exertion, No Orthopnea, No Edema, No Palpitations Respiratory : No Cough, No Sputum, No Wheezing, No Smoke Exposure, No Dyspnea Gastrointestinal : No Nausea, No Vomiting, No Diarrhea, No Constipation, No abdominal Pain, No Hematochezia, No Melena Genitourinary : no irregular bleeding, No Dysuria, No Urinary Frequency, No Hematuria, No Urinary Incontinence, No Urgency, No Flank Pain, No Urinary Flow Changes, No Hesitancy Musculoskeletal : No joint pain, No Myalgias, No Joint Swelling Skin : No Skin Lesions, No rash Neuro : No Weakness, No Numbness, No Paresthesias, No Loss of Consciousness, No Dizziness, No Headache Psych : No Anxiety/Panic, No Depression, No SI/HI/AH/VH, No Social Issues, Heme/Lymph: No Bruising, No Bleeding,No Lymphadenopathy Endocrine : No Polyuria, No Polydipsia, No Temperature Intolerance [facility] Past Medical History Medical History Pes equinus, acquired Complex regional pain syndrome i of left lower limb Osteoarthritis of right knee Chronic, continuous use of opioids PTSD (post-traumatic stress disorder) Anxiety and depression Peripheral neuropathy Arthritis Back pain Diabetes GERD (gastroesophageal reflux disease) COPD (chronic obstructive pulmonary disease) Sleep apnea On beta sean at home Elevated cholesterol CHF (congestive heart failure) Myocardial infarction CAD (coronary artery disease) HTN (hypertension) Acute medial meniscus tear of right knee Internal derangement of right knee Internal derangement of left knee Degenerative arthritis of knee, bilateral Surgical History History of back surgery History of cardiac cath Hx of sinus surgery Hx of eye surgery History of penile implant History of open reduction and internal fixation (ORIF) procedure Hx of arthroscopy of left knee Hx of repair of left rotator cuff Hx of bariatric surgery Social History Social History Patient Tobacco Use Status: Former Tobacco user Advance Directives: No Advance Directives Information Provided: Yes Current occupational status: retired 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 Physical Exam ED Vital Signs: Vital Signs - 24 hr 09/04/23 23:17 09/04/23 23:23 09/04/23 23:24 Temperature 97.8 F Pulse Rate 59 58 64 Respiratory Rate 18 Blood Pressure 125/50 L 103/58 L 97/53 L Pulse Oximetry 96 Oxygen Delivery Method Room Air 09/04/23 23:27 09/05/23 00:48 Temperature 97.8 F Pulse Rate 63 59 Respiratory Rate 18 Blood Pressure 112/34 L 132/61 Pulse Oximetry 92 Oxygen Delivery Method Room Air BMI result Body Mass Index 33.3 Const Other: Appearance: Alert. Oriented X3. No acute distress. Eyes: Pupils equal, round and reactive to light. ENT: Pharynx normal. Neck: Normal inspection. Neck supple. No lymph nodes noted. No crepitus CVS: Normal heart rate and rhythm. Pulses normal. Normal S1 and S2 Respiratory: No respiratory distress. Breath sounds normal. No Wheezing. No rales Abdomen: Soft and nontender. No rigidity. No distention. Skin: Skin warm and dry. Normal skin color. Normal skin turgor. Extremities: No lower extremity edema. No Lacerations. No Rash Neuro: Oriented X 3. No motor deficit. No sensory deficit. Moving all extremities. No slurred speech. CN 2 through 12 grossly intact Psych: calm, cooperative, normal affect Course Course Course Narrative: -patient awake, alert and oriented x3, coherent. -all of patient's labs pending Medical Decision Making Medical Decision Making [facility] Narrative: -my interpretation of labs: Patient's hematology and chemistry are at baseline. Patient's urine toxicology positive for opiates which she gets prescribed by his PCP. Patient denies a possibility of taking more than usual. -here in the emergency room, patient has been awake, alert and oriented x3, no episodes of weakness or lethargy. -patient walking around the emergency room with normal gait, states he feels while walking. -negative orthostatic vitals, patient did not feel any lightheadedness or dizziness. Differential Diagnosis Differential Diagnoses: The differential diagnosis associated with the presentation includes (Medication side effect, absence seizures, UTI) Lab Data [facility] Lab Attestation statement: I reviewed the patient's lab results. 09/05/23 00:35 09/05/23 00:35 Labs: Lab Results 09/05/23 09/05/23 Range/Units 00:35 01:00 WBC 7.1 (4.8-10.8) X10*3/uL RBC 3.99 L (4.60-5.80) X10*6/uL Hgb 12.5 L (14.0-18.0) g/dl Hct 36.9 L (42.0-52.0) % MCV 92.5 (80.0-98.0) fL MCH 31.3 (27.0-33.0) pg MCHC 33.9 (31.0-36.0) g/dl RDW 13.2 (11.0-16.0) % Plt Count 188 D (160-400) X10*3/uL MPV 10.2 (9.4-12.4) fL Immature Gran % (Auto) 0.3 (0.0-0.4) % Neut % (Auto) 50.1 (45-73) % Lymph % (Auto) 35.8 (20-40) % [place] % (Auto) 8.6 (2-11) % Eos % (Auto) 4.6 H (0-4) % Baso % (Auto) 0.6 (0-2) % Lymph # (Auto) 2.6 (1.2-4.9) X10*3/uL [place] # (Auto) 0.6 (0.1-1.2) X10*3/uL Eos # (Auto) 0.3 (0.0-0.4) X10*3/uL Baso # (Auto) 0.0 (0.0-0.2) X10*3/uL Abs Immat Gran (auto) 0.02 (0.00-0.03) X10*3/uL Absolute Neuts (auto) 3.6 (2.0-8.3) x10*3/uL Absolute Nucleated RBC 0.000 (0.0-0.012) X10*3/uL Nucleated RBC % (auto) 0.0 (0.0-0.2) /100WBC PT 11.9 (11.1-13.3) SEC INR 1.0 (0.9-1.1) Sodium 142 (135-145) mmol/L Potassium 4.1 (3.3-5.1) mmol/L Chloride 108 (96-108) mmol/L Carbon Dioxide 26 (22-29) mmol/L Anion Gap 12 (12-20) BUN 28 H (9-16) mg/dL Creatinine 2.09 H (0.5-1.4) mg/dL Estim Creat Clear Calc 35.9 Estimated GFR 31 Random Glucose 93 (60-115) mg/dL Lactic Acid 0.8 (0.5-2.0) mmol/L Calcium 8.8 D (8.4-10.2) mg/dL Magnesium 2.2 (1.6-2.6) mg/dL Total Bilirubin 0.3 (0.0-1.0) mg/dL Direct Bilirubin 0.2 (0.0-0.5) mg/dL AST 18 (5-37) U/L ALT 14 (0-40) U/L Alkaline Phosphatase 35 L (39-117) U/L Ammonia 38 (13-55) umol/L Troponin I High Sens 7.7 (<3.5-35.0) ng/L Total Protein 6.0 L (6.5-8.0) g/dL Albumin 3.2 L (3.5-5.0) g/dL Urine Color Yellow Urine Appearance Clear Urine pH 5.5 (5.0-9.0) Ur Specific [place] >= 1.030 H (1.005-1.025) Urine Protein >=1000 (4+) H (Neg-Trace) mg/dL Urine Glucose (UA) >=1000 H (Negative) mg/dL Urine Ketones Trace (Negative) mg/dL Urine Blood Negative (Negative) Urine Nitrite Negative (Negative) Ur Leukocyte Esterase Negative (Negative) Urine RBC 0-2 (0-2) /HPF Urine WBC 0-5 (0-5) /HPF Ur Squamous Epith Cells 0-2 (0-2) /HPF Urine Bacteria None Seen (None Seen) Hyaline Casts 3-5 (0-2) /LPF Urine Opiates Screen POSITIVE H (Not Detect) Ur Buprenorphine Scrn Not Detected (Not Detect) ng/mL Ur Oxycodone Screen Positive H (Not Detect) ng/mL Urine Methadone Screen Not Detected (Not Detect) ng/mL Urine Fentanyl Screen Not Detected (Not Detect) Ur Barbiturates Screen Not Detected (Not Detect) Ur Phencyclidine Scrn Not Detected (Not Detect) Ur Amphetamines Screen Not Detected (Not Detect) U Benzodiazepines Scrn Not Detected (Not Detect) Urine Cocaine Screen Not Detected (Not Detect) U Marijuana (THC) Screen Not Detected (Not Detect) Ethyl Alcohol < 10 mg/dL Radiology Impression Discussion of test interpretation with radiology: I have reviewed the radiologist's reading. Discharge Plan Discharge Clinical Impression: Lethargy Patient Disposition: Home, Self-Care Instructions: Fatigue (ED) Additional Instructions: Please follow-up with your primary care physician tomorrow. If you have any worsening or new symptoms, please return to the emergency room or call 911 Prescriptions: No Action atorvastatin 80 mg tablet 1 tab PO DAILY ropinirole 3 mg tablet 1 tab PO BEDTIME PRN (Reason: Restless Leg(S)) amlodipine 5 mg tablet 1 tab PO DAILY nitroglycerin 0.4 mg tablet, sublingual 1 tab sublingual NEEDED PRN (Reason: Chest Pain) omeprazole 20 mg capsule,delayed release(DR/EC) 20 mg PO DAILY losartan 100 mg tablet 1 tab PO DAILY Combigan 0.2-0.5 % drops 1 drp BID fenofibrate 54 mg tablet 1 tab PO BEDTIME furosemide [Lasix] 40 mg Tablet 40 mg PO BID PRN (Reason: Edema) vortioxetine 20 mg tablet 20 mg PO DAILY bimatoprost 0.03 % drops with applicator 1 drp topical BEDTIME timolol 0.5 % drops 1 drp ophthalmic (eye) BID divalproex 500 mg tablet,delayed release (DR/EC) 500 mg PO DAILY carboxymethylcellulose sodium 0.5 % dropperette 1 drp ophthalmic (eye) QID metoprolol succinate 200 mg tablet extended release 24 hr 200 mg PO DAILY insulin glargine-yfgn 100 unit/mL (3 mL) insulin pen 31 unit subcut DAILY empagliflozin 25 mg tablet 12.5 mg PO DAILY semaglutide 1 mg/dose (4 mg/3 mL) pen injector 1 mg subcut QWEEK cyclosporine 0.05 % drops 1 drp ophthalmic (eye) BID trazodone 100 mg tablet 50 mg PO BEDTIME PRN ubrogepant 100 mg tablet PO PRN aspirin 81 mg tablet,delayed release (DR/EC) 81 mg PO DAILY Print Language: [place]
[2023-09-05 00:44] LABS: MANUAL DIFF FLAG NO
[2023-09-05 00:45] LABS: Basophils Percent Auto 0.6 % (0-2); Eosinophils Absolute Auto 0.3 X10*3/uL (0.0-0.4); Eosinophils Percent Auto 4.6 % (0-4); Hematocrit 36.9 % (42.0-52.0); Hemoglobin 12.5 g/dl (14.0-18.0); Imm Gran Abs Auto 0.02 X10*3/uL (0.00-0.03); Imm Gran Pct Auto 0.3 % (0.0-0.4); Lymphocytes Absolute Auto 2.6 X10*3/uL (1.2-4.9); Lymphocytes Percent Auto 35.8 % (20-40); Mean Corpuscular HGB Conc 33.9 g/dl (31.0-36.0); Mean Corpuscular Hemoglobin 31.3 pg (27.0-33.0); Mean Corpuscular Volume 92.5 fL (80.0-98.0); Mean Platelet Volume 10.2 fL (9.4-12.4); Monocytes Absolute Auto 0.6 X10*3/uL (0.1-1.2); Monocytes Percent Auto 8.6 % (2-11); Neutrophils Absolute Auto 3.6 x10*3/uL (2.0-8.3); Neutrophils Percent Auto 50.1 % (45-73); Platelet Count 188 X10*3/uL (160-400); Red Blood Count 3.99 X10*6/uL (4.60-5.80); Red Cell Distribution Width 13.2 % (11.0-16.0); White Blood Count 7.1 X10*3/uL (4.8-10.8)
[2023-09-05 00:48] VITALS: BP 132/61; PULSE 59; RESP 18; TEMP 36.6; O2SAT 92
[2023-09-05 00:51] LABS: Prothrombin Time 11.9 SEC (11.1-13.3)
[2023-09-05 00:53] LABS: Ammonia 38 umol/L (13-55)
[2023-09-05 00:55] LABS: Lactic Acid 0.8 mmol/L (0.5-2.0)
[2023-09-05 01:00] LABS: Alanine Aminotransferase 14 U/L (0-40); Albumin Level 3.2 g/dL (3.5-5.0); Alkaline Phosphatase 35 U/L (39-117); Anion Gap 12 (12-20); Aspartate Amino Transferase 18 U/L (5-37); Bilirubin Direct 0.2 mg/dL (0.0-0.5); Bilirubin Total 0.3 mg/dL (0.0-1.0); Blood Urea Nitrogen 28 mg/dL (9-16); Calcium 8.8 mg/dL (8.4-10.2); Carbon Dioxide 26 mmol/L (22-29); Chloride 108 mmol/L (96-108); Creatinine Clr Calc Pharmacy 35.9; Estimated Glomerular Filt Rate 31; Glucose Random 93 mg/dL (60-115); Magnesium 2.2 mg/dL (1.6-2.6); Potassium 4.1 mmol/L (3.3-5.1); Sodium 142 mmol/L (135-145)
[2023-09-05 01:01] LABS: Ethanol < 10 mg/dL
[2023-09-05 01:07] LABS: Troponin-I High Sensitivity 7.7 ng/L (<3.5-35.0)
[2023-09-05 01:09] LABS: Appearance Urine Clear; Color Urine Yellow; Glucose Urine UA >=1000 mg/dL (Negative); Leukocyte Esterase Urine Negative (Negative); Nitrite Urine Negative (Negative); PH 5.5 (5.0-9.0); Specific Gravity - Urine >= 1.030 (1.005-1.025); UMIC TRIGGER UACC YES; Urine Blood Negative (Negative); Urine Ketones Trace mg/dL (Negative); Urine Protein >=1000 (4+) mg/dL (Neg-Trace)
[2023-09-05 01:14] LABS: Bacteria Urine None Seen (None Seen); RBC Urine 0-2 /HPF (0-2); Squamous Epithelial Cell Urine 0-2 /HPF (0-2); WBC Urine 0-5 /HPF (0-5)
[2023-09-05 01:22] LABS: Amphetamine Screen Urine Not Detected (Not Detect); Barbiturates, Urine Not Detected (Not Detect); Benzodiazepines Screen Urine Not Detected (Not Detect); Buprenorphine Scr Not Detected (Not Detect); Cannabinoid Screen Urine Not Detected (Not Detect); Cocaine Screen Urine Not Detected (Not Detect); Fentanyl, urine Not Detected (Not Detect); Methadone Screen, Urine Not Detected (Not Detect); Opiate Screen Urine POSITIVE (Not Detect); Oxycodone Screen Urine Positive (Not Detect); Phencyclidine Screen Urine Not Detected (Not Detect)
[2023-09-05 03:33] VITALS: BP 132/61; PULSE 59; RESP 18; TEMP 36.6; O2SAT 92
== END 2023-09-05 03:35 | disposition home or self-care (01) ==
PROVIDERS: Emergency Provider Emergency Medicine
DX: R53.83 Other fatigue (principal); I10 Essential (primary) hypertension; J44.9 Chronic obstructive pulmonary disease, unspecified
CPT/HCPCS: 36415; 80048; 80076; 80307; 81001; 82140; 83605; 83735; 84484; 85025; 85610; 93005; 99285

== ENCOUNTER → 2023-09-04 23:36 | Outpatient (BNV) | payer MEDICARE, SELFPAY | PROVIDERS: Emergency Provider Emergency Medicine; Visit Provider Internal Medicine | DX: R00.1 Bradycardia, unspecified (principal) | CPT/HCPCS: 93010 ==

== ENCOUNTER 2023-12-22 12:36 | Outpatient (REF) | payer MEDICARE, SELFPAY ==
[2023-12-22 16:35] LABS: Anion Gap 9 (12-20); Blood Urea Nitrogen 18 mg/dL (9-16); Carbon Dioxide 28 mmol/L (22-29); Chloride 109 mmol/L (96-108); Estimated Glomerular Filt Rate 36; Potassium 4.2 mmol/L (3.3-5.1); Sodium 142 mmol/L (135-145)
== END 2023-12-22 12:37 | disposition home or self-care (01) ==
LOC: HO.HMGCLDS 12:36
PROVIDERS: PCP Internal Medicine; Visit Provider Internal Medicine Nephrology
DX: I10 Essential (primary) hypertension (principal); N18.32 Chronic kidney disease, stage 3b; E11.21 Type 2 diabetes mellitus with diabetic nephropathy; I12.9 Hypertensive chronic kidney disease with stage 1 through stage 4 chronic kidney disease, or unspecified chronic kidney disease
CPT/HCPCS: 36415; 80051; 82565; 84520; 99212

== ENCOUNTER 2023-12-22 13:50 | Outpatient (AMB) | payer MEDICARE, BC, SELFPAY ==
--- NOTE | 2023-12-22 14:14 | HO.NEPHOV ---
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 Accompanied by: Self / Same As Patient Allergies gabapentin [GABAPENTIN] Allergy (Severe, Verified 12/22/23 14:18) SHORTNESS OF BREATH naproxen [NAPROXEN] Allergy (Unknown, Verified 12/22/23 14:18) KIDNEY SHUT DOWN TO ALL NAPROXEN PRODUCTS Sulfa (Sulfonamide Antibiotics) [SULFA (SULFONAMIDE ANTIBIOTICS)] Allergy (Unknown, Verified 12/22/23 14:18) HIVES sulfur Allergy (Unknown, Verified 12/22/23 14:18) unknown anti-inflammatory Allergy (Unknown, Uncoded 09/04/23 23:19) unknown sulfa Allergy (Unknown, Uncoded 09/04/23 23:19) unknown HPI Comments Details: I had the pleasure of seeing Juan Carlos in follow-up of his chronic kidney disease secondary to diabetic nephropathy. He is hypertensive with good blood pressure control on current medications. He has been having a right foot drop and is wearing a brace. He denies any chest pain, shortness of breath, paroxysmal nocturnal dyspnea, orthopnea, pedal edema, urinary symptoms, nausea, vomiting, diarrhea. He does not take any nonsteroidal anti-inflammatory medications and maintains good hydration. He has no orthostatic symptoms. He claims to be tolerating his medications including Jardiance REPLACED BY [facility] Medical History Pes equinus, acquired Complex regional pain syndrome i of left lower limb Osteoarthritis of right knee Chronic, continuous use of opioids PTSD (post-traumatic stress disorder) Anxiety and depression Peripheral neuropathy Arthritis Back pain Diabetes GERD (gastroesophageal reflux disease) COPD (chronic obstructive pulmonary disease) Sleep apnea On beta sean at home Elevated cholesterol CHF (congestive heart failure) Myocardial infarction CAD (coronary artery disease) HTN (hypertension) Acute medial meniscus tear of right knee Internal derangement of right knee Internal derangement of left knee Degenerative arthritis of knee, bilateral Surgical History History of back surgery History of cardiac cath Hx of sinus surgery Hx of eye surgery History of penile implant History of open reduction and internal fixation (ORIF) procedure Hx of arthroscopy of left knee Hx of repair of left rotator cuff Hx of bariatric surgery Social History Patient Tobacco Use Status: Former Tobacco user Current occupational status: retired 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 Review of Systems Const All systems reviewed & are unremarkable except as noted in HPI and below Physical Exam Vital Signs: Last Vital Signs Pulse 53 12/22/23 14:16 BP 160/70 H 12/22/23 14:16 Pulse Ox 96 12/22/23 14:16 Oxygen Delivery Method Room Air 12/22/23 14:16 BMI result Body Mass Index 33.7 Const General: comfortable and no acute distress Orientation/consciousness: patient oriented x3 HEENT Head: Yes normocephalic Mouth: Normal oral and palatal mucosa present Eyes EOM: EOMs intact bilaterally Neck Neck: Yes supple Resp Auscultation: clear to auscultation bilaterally Cardio Jugular venous distension: no JVD Rate: regular rate GI Palpation (GI): Soft to palpation Auscultation: normal bowel sounds General: Yes no CVA tenderness Back/Spine/Pelvis Back: no CVA tenderness Skin General skin exam: no rashes or lesions noted Neuro General: patient oriented x3 and moves all extremities Results Reviewed Nephrology Results: Hgb 12.5 g/dl (14.0-18.0) L 09/05/23 WBC 7.1 X10*3/uL (4.8-10.8) 09/05/23 Plt Count 188 X10*3/uL (160-400) 09/05/23 Sodium 142 mmol/L (135-145) 09/05/23 Potassium 4.1 mmol/L (3.3-5.1) 09/05/23 Chloride 108 mmol/L (96-108) 09/05/23 Carbon Dioxide 26 mmol/L (22-29) 09/05/23 BUN 28 mg/dL (9-16) H 09/05/23 Creatinine 2.09 mg/dL (0.5-1.4) H 09/05/23 Calcium 8.8 mg/dL (8.4-10.2) 09/05/23 Urine Protein >=1000 (4+) mg/dL (Neg-Trace) H 09/05/23 Assessment & Plan Assessment & Plan (1) Stage 3b chronic kidney disease (CKD): Code(s): N18.32 - Chronic kidney disease, stage 3b Category: Medical (2) HTN (hypertension): Code(s): I10 - Essential (primary) hypertension Category: Medical Qualifiers: Hypertension type: primary hypertension Qualified Code(s): I10 - Essential (primary) hypertension (3) Diabetic nephropathy: Code(s): E11.21 - Type 2 diabetes mellitus with diabetic nephropathy Category: Medical Qualifiers: Diabetes mellitus type: type 2 Qualified Code(s): E11.21 - Type 2 diabetes mellitus with diabetic nephropathy Plan Juan Carlos has stage III CKD at baseline. He has diabetic nephropathy. He is tolerating angiotensin receptor sean and Jardiance. His volume status is optimal. His blood pressure is at goal. I encouraged him to maintain good hydration, keep his blood sugar at goal, avoid nonsteroidal anti-inflammatories and maintain his blood pressure on target. Labs from AM pending. I did not make any medication changes today rather ordered follow-up blood work for continued management. All questions answered. Follow-up given. Coding Level of Care Code Est Pt Level 4 (65306) Diagnoses Stage 3b chronic kidney disease (CKD) N18.32 Primary hypertension I10 Hypertension type: primary hypertension Diabetic nephropathy associated with type 2 diabetes mellitus E11.21 Diabetes mellitus type: type 2
[2023-12-22 14:16] VITALS: BP 160/70; PULSE 53; O2SAT 96; BMI 33.7
== END 2023-12-22 14:38 | disposition home or self-care (01) ==
PROVIDERS: PCP Internal Medicine; Visit Provider Internal Medicine Nephrology
DX: N18.32 Chronic kidney disease, stage 3b (principal); I10 Essential (primary) hypertension; E11.21 Type 2 diabetes mellitus with diabetic nephropathy
CPT/HCPCS: 99214

== ENCOUNTER 2024-04-19 13:26 | Outpatient (AMB) | payer MEDICARE, BC, SELFPAY ==
--- NOTE | 2024-04-19 13:40 | HO.NEPHOV ---
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 Accompanied by: Self / Same As Patient Allergies gabapentin [GABAPENTIN] Allergy (Severe, Verified 04/19/24 13:42) SHORTNESS OF BREATH naproxen [NAPROXEN] Allergy (Unknown, Verified 04/19/24 13:42) KIDNEY SHUT DOWN TO ALL NAPROXEN PRODUCTS Sulfa (Sulfonamide Antibiotics) [SULFA (SULFONAMIDE ANTIBIOTICS)] Allergy (Unknown, Verified 04/19/24 13:42) HIVES sulfur Allergy (Unknown, Verified 04/19/24 13:42) unknown anti-inflammatory Allergy (Unknown, Uncoded 09/04/23 23:19) unknown sulfa Allergy (Unknown, Uncoded 09/04/23 23:19) unknown HPI Comments Details: Juan Carlos was seen in follow-up of his chronic kidney disease secondary to diabetic nephropathy. He is hypertensive with good blood pressure control on current medications. He has a right foot drop and is wearing a brace. He denies any chest pain, shortness of breath, paroxysmal nocturnal dyspnea, orthopnea, pedal edema, urinary symptoms, nausea, vomiting, diarrhea. He does not take any nonsteroidal anti-inflammatory medications and maintains good hydration. He has no orthostatic symptoms. He claims to be tolerating his medications including Jardiance [facility] Medical History Pes equinus, acquired Complex regional pain syndrome i of left lower limb Osteoarthritis of right knee Chronic, continuous use of opioids PTSD (post-traumatic stress disorder) Anxiety and depression Peripheral neuropathy Arthritis Back pain Diabetes GERD (gastroesophageal reflux disease) COPD (chronic obstructive pulmonary disease) Sleep apnea On beta sean at home Elevated cholesterol CHF (congestive heart failure) Myocardial infarction CAD (coronary artery disease) HTN (hypertension) Acute medial meniscus tear of right knee Internal derangement of right knee Internal derangement of left knee Degenerative arthritis of knee, bilateral Surgical History History of back surgery History of cardiac cath Hx of sinus surgery Hx of eye surgery History of penile implant History of open reduction and internal fixation (ORIF) procedure Hx of arthroscopy of left knee Hx of repair of left rotator cuff Hx of bariatric surgery Social History Patient Tobacco Use Status: Former Tobacco user Current occupational status: retired 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 Review of Systems Const All systems reviewed & are unremarkable except as noted in HPI and below Physical Exam Vital Signs: Last Vital Signs Pulse 62 04/19/24 13:42 BP 138/70 04/19/24 13:42 Pulse Ox 97 04/19/24 13:42 Oxygen Delivery Method Room Air 04/19/24 13:42 BMI result Body Mass Index 31.5 Const General: comfortable and no acute distress Orientation/consciousness: patient oriented x3 HEENT Head: Yes normocephalic Mouth: Normal oral and palatal mucosa present Eyes EOM: EOMs intact bilaterally Neck Neck: Yes supple Resp Auscultation: clear to auscultation bilaterally Cardio Jugular venous distension: no JVD Rate: regular rate Heart sounds: Murmur heart sound present GI Palpation (GI): Soft to palpation Auscultation: normal bowel sounds General: Yes no CVA tenderness Back/Spine/Pelvis Back: no CVA tenderness Skin General skin exam: no rashes or lesions noted Neuro General: patient oriented x3 and moves all extremities Results Reviewed Nephrology Results: Hgb 12.5 g/dl (14.0-18.0) L 09/05/23 WBC 7.1 X10*3/uL (4.8-10.8) 09/05/23 Plt Count 188 X10*3/uL (160-400) 09/05/23 Sodium 142 mmol/L (135-145) 12/22/23 Potassium 4.2 mmol/L (3.3-5.1) 12/22/23 Chloride 109 mmol/L (96-108) H 12/22/23 Carbon Dioxide 28 mmol/L (22-29) 12/22/23 BUN 18 mg/dL (9-16) H 12/22/23 Creatinine 1.86 mg/dL (0.5-1.4) H 12/22/23 Calcium 8.8 mg/dL (8.4-10.2) 09/05/23 Urine Protein >=1000 (4+) mg/dL (Neg-Trace) H 09/05/23 Assessment & Plan Assessment & Plan (1) HTN (hypertension): Code(s): I10 - Essential (primary) hypertension Category: Medical Qualifiers: Hypertension type: primary hypertension Qualified Code(s): I10 - Essential (primary) hypertension (2) Stage 3b chronic kidney disease (CKD): Code(s): N18.32 - Chronic kidney disease, stage 3b Category: Medical Plan Juan Carlos has stage III BCKD at baseline. He has diabetic nephropathy. He is tolerating angiotensin receptor sean and Jardiance. If his serum creatinine goes up, I shall back off on ARB. His volume status is optimal. His blood pressure is at goal. I encouraged him to maintain good hydration, keep his blood sugar at goal, avoid nonsteroidal anti-inflammatories and maintain his blood pressure on target. I did not make any medication changes today rather ordered follow-up blood work for continued management. All questions answered. Follow-up given. Orders: Orders Creatinine 3 Months I10 - Essential (primary) hypertension, N18.32 - Chronic kidney disease, stage 3b Blood Urea Nitrogen 3 Months I10 - Essential (primary) hypertension, N18.32 - Chronic kidney disease, stage 3b Calcium 3 Months I10 - Essential (primary) hypertension, N18.32 - Chronic kidney disease, stage 3b Electrolytes 3 Months I10 - Essential (primary) hypertension, N18.32 - Chronic kidney disease, stage 3b Complete Blood Count Auto Diff 3 Months I10 - Essential (primary) hypertension, N18.32 - Chronic kidney disease, stage 3b Phosphorus 3 Months I10 - Essential (primary) hypertension, N18.32 - Chronic kidney disease, stage 3b Parathyroid Hormone Intact 3 Months I10 - Essential (primary) hypertension, N18.32 - Chronic kidney disease, stage 3b Coding Level of Care Code Est Pt Level 4 (38285) Diagnoses Primary hypertension I10 Hypertension type: primary hypertension Stage 3b chronic kidney disease (CKD) N18.32
[2024-04-19 13:42] VITALS: BP 138/70; PULSE 62; O2SAT 97; BMI 31.5
== END 2024-04-19 13:55 | disposition home or self-care (01) ==
PROVIDERS: PCP Internal Medicine; Visit Provider Internal Medicine Nephrology
DX: I12.9 Hypertensive chronic kidney disease with stage 1 through stage 4 chronic kidney disease, or unspecified chronic kidney disease (principal); N18.32 Chronic kidney disease, stage 3b
CPT/HCPCS: 99214

== ENCOUNTER → 2024-04-19 13:26 | Outpatient (BNVA) | payer MEDICARE, BC, SELFPAY | PROVIDERS: PCP Internal Medicine; Visit Provider Internal Medicine Nephrology | DX: I12.9 Hypertensive chronic kidney disease with stage 1 through stage 4 chronic kidney disease, or unspecified chronic kidney disease (principal); N18.32 Chronic kidney disease, stage 3b | CPT/HCPCS: 99212 ==

== ENCOUNTER 2024-07-04 19:32 | Emergency (ER) | payer MEDICARE, BC, SELFPAY ==
--- NOTE | ~2024-07-04 | XR_ITS ---
CLINICAL HISTORY: Cut by saw. fractures? 3 view left hand 4 view left wrist Comparison: None Findings: Fractures of the 2nd, 3rd and 4th distal phalanges with soft tissue lacerations. Osteoarthritis of the 1st carpometacarpal joint. No radiopaque foreign body. IMPRESSION: 1. Fractures of the 2nd, 3rd and 4th distal phalanges with soft tissue lacerations. This document has been electronically signed by: Anisha Sabillon MD on 07/04/2024 21:03:53
[2024-07-04 20:10] VITALS: BP 177/65; PULSE 67; RESP 16; TEMP 36.7; O2SAT 99; BMI 30.8
--- NOTE | 2024-07-04 20:16 | ED.GENADULT ---
HPI - General Adult General Chief complaint: Extremity Injury, Upper Stated complaint: left hand laceration Time Seen by Provider: 07/05/24 00:34 History of Present Illness HPI narrative: Seen by Dr. Gilmore. Related Data Home Medications ?Medication ?Instructions ?Recorded ?Confirmed amlodipine 5 mg tablet 1 tab PO DAILY 04/09/20 04/15/20 atorvastatin 80 mg tablet 1 tab PO DAILY 04/09/20 04/15/20 brimonidine 0.2 %-timolol 0.5 % 1 drp BID 04/09/20 04/15/20 eye drops (Combigan) fenofibrate 54 mg tablet 1 tab PO BEDTIME 04/09/20 04/15/20 furosemide 40 mg tablet (Lasix) 40 mg PO BID PRN Edema 04/09/20 04/15/20 losartan 100 mg tablet 1 tab PO DAILY 04/09/20 04/15/20 nitroglycerin 0.4 mg sublingual 1 tab sublingual NEEDED PRN 04/09/20 04/15/20 tablet Chest Pain omeprazole 20 mg capsule,delayed 20 mg PO DAILY 04/09/20 04/15/20 release ropinirole 3 mg tablet 1 tab PO BEDTIME PRN Restless 04/09/20 04/15/20 Leg(S) aspirin 81 mg tablet,delayed 81 mg PO DAILY 08/08/23 release bimatoprost 0.03 % drops with 1 drp topical BEDTIME 08/08/23 applicator, eyelash base carboxymethylcellulose sodium 0.5 1 drp ophthalmic (eye) QID 08/08/23 % eye drops in a dropperette cyclosporine 0.05 % eye drops 1 drp ophthalmic (eye) BID 08/08/23 divalproex 500 mg tablet,delayed 500 mg PO DAILY 08/08/23 release empagliflozin 25 mg tablet 12.5 mg PO DAILY 08/08/23 insulin glargine-yfgn 100 unit/mL 31 unit subcut DAILY 08/08/23 (3 mL) subcutaneous pen metoprolol succinate 200 mg 200 mg PO DAILY 08/08/23 tablet,extended release 24 hr semaglutide 1 mg/dose (4 mg/3 mL) 1 mg subcut QWEEK 08/08/23 subcutaneous pen injector timolol 0.5 % eye drops 1 drp ophthalmic (eye) BID 08/08/23 trazodone 100 mg tablet 50 mg PO BEDTIME PRN 08/08/23 ubrogepant 100 mg tablet mg PO PRN 08/08/23 vortioxetine 20 mg tablet 20 mg PO DAILY 08/08/23 Previous Rx's ?Medication ?Instructions ?Recorded doxycycline hyclate 100 mg tablet 100 mg PO BID #20 tabs 07/05/24 oxycodone 5 mg tablet 5 mg PO Q8H PRN pain #10 tabs 07/05/24 Allergies Allergy/AdvReac Type Severity Reaction Status Date / Time gabapentin [GABAPENTIN] Allergy Severe SHORTNESS Verified 07/04/24 20:18 OF BREATH naproxen [NAPROXEN] Allergy Unknown KIDNEY Verified 07/04/24 20:18 SHUT DOWN TO ALL NAPROXEN PRODUCTS Sulfa (Sulfonamide Allergy Unknown HIVES Verified 07/04/24 20:18 Antibiotics) [SULFA (SULFONAMIDE ANTIBIOTICS)] sulfur Allergy Unknown unknown Verified 07/04/24 20:18 anti-inflammatory Allergy Unknown unknown Uncoded 07/04/24 20:18 sulfa Allergy Unknown unknown Uncoded 07/04/24 20:18 [facility] Past Medical History Medical History Pes equinus, acquired Complex regional pain syndrome i of left lower limb Osteoarthritis of right knee Chronic, continuous use of opioids PTSD (post-traumatic stress disorder) Anxiety and depression Peripheral neuropathy Arthritis Back pain Diabetes GERD (gastroesophageal reflux disease) COPD (chronic obstructive pulmonary disease) Sleep apnea On beta sean at home Elevated cholesterol CHF (congestive heart failure) Myocardial infarction CAD (coronary artery disease) HTN (hypertension) Acute medial meniscus tear of right knee Internal derangement of right knee Internal derangement of left knee Degenerative arthritis of knee, bilateral Surgical History History of back surgery History of cardiac cath Hx of sinus surgery Hx of eye surgery History of penile implant History of open reduction and internal fixation (ORIF) procedure Hx of arthroscopy of left knee Hx of repair of left rotator cuff Hx of bariatric surgery Social History Social History Patient Tobacco Use Status: Former Tobacco user Advance Directives: No Advance Directives Information Provided: Yes Do you have a plan to hurt others: No Plan Current occupational status: retired 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 Physical Exam ED Vital Signs: Vital Signs - 24 hr 07/04/24 20:10 07/05/24 08:59 Temperature 98.0 F 0 F L Pulse Rate 67 67 Respiratory Rate 16 16 Blood Pressure 177/65 H 177/65 H Pulse Oximetry 99 99 Oxygen Delivery Method Room Air Room Air BMI result Body Mass Index 30.8 Course Course Course Narrative: RME: 74 yold male presents to the ED for left hand lacerations. Patient hand got caught by a saw. Patient has had his banded will be evaluated [facility]. X-ray ordered. Patient is up-to-date with tetanus Medications Administered Discontinued Medications Generic Name Dose Route Start Last Admin Trade Name Freq PRN Reason Stop Dose Admin Bacitracin 1 appl 07/05/24 01:40 07/05/24 02:16 Bacitracin Oint 0.9 Gm Packet TOPICAL 07/05/24 01:41 1 appl ONCE ONE Administration Protocol Diphtheria/Tetanus/Acell Pertussis 0.5 ml 07/05/24 01:38 07/05/24 02:15 Diphth,Pertus(Acell),Tet Adult 0.5 Ml Syringe IM 07/05/24 01:39 0.5 ml .ONCE ONE Administration Doxycycline Monohydrate 100 mg 07/05/24 01:38 07/05/24 02:16 Doxycycline Monohydrate 100 Mg Capsule PO 07/05/24 01:39 100 mg ONCE ONE Administration Lidocaine HCl 10 ml 07/05/24 00:42 07/05/24 00:48 Lidocaine Hcl 1 % Mpf 5 Ml Vial SUBCUT 07/05/24 00:43 10 ml ONCE ONE Administration Discharge Plan Discharge Clinical Impression: Laceration of multiple sites of left hand and fingers, Partial traumatic amputation of finger through phalanx Patient Disposition: Home, Self-Care Instructions: Finger Amputation (ED), Finger Laceration (ED) Prescriptions: New doxycycline hyclate 100 mg tablet 100 mg PO BID Qty: 20 0RF oxycodone 5 mg tablet 5 mg PO Q8H PRN (Reason: pain) Qty: 10 0RF Rx Instructions: Partial Fill upon patient request. No Action atorvastatin 80 mg tablet 1 tab PO DAILY ropinirole 3 mg tablet 1 tab PO BEDTIME PRN (Reason: Restless Leg(S)) amlodipine 5 mg tablet 1 tab PO DAILY nitroglycerin 0.4 mg tablet, sublingual 1 tab sublingual NEEDED PRN (Reason: Chest Pain) omeprazole 20 mg capsule,delayed release(DR/EC) 20 mg PO DAILY losartan 100 mg tablet 1 tab PO DAILY Combigan 0.2-0.5 % drops 1 drp BID fenofibrate 54 mg tablet 1 tab PO BEDTIME furosemide [Lasix] 40 mg Tablet 40 mg PO BID PRN (Reason: Edema) vortioxetine 20 mg tablet 20 mg PO DAILY bimatoprost 0.03 % drops with applicator 1 drp topical BEDTIME timolol 0.5 % drops 1 drp ophthalmic (eye) BID divalproex 500 mg tablet,delayed release (DR/EC) 500 mg PO DAILY carboxymethylcellulose sodium 0.5 % dropperette 1 drp ophthalmic (eye) QID metoprolol succinate 200 mg tablet extended release 24 hr 200 mg PO DAILY insulin glargine-yfgn 100 unit/mL (3 mL) insulin pen 31 unit subcut DAILY empagliflozin 25 mg tablet 12.5 mg PO DAILY semaglutide 1 mg/dose (4 mg/3 mL) pen injector 1 mg subcut QWEEK cyclosporine 0.05 % drops 1 drp ophthalmic (eye) BID trazodone 100 mg tablet 50 mg PO BEDTIME PRN ubrogepant 100 mg tablet PO PRN aspirin 81 mg tablet,delayed release (DR/EC) 81 mg PO DAILY Referrals: Anup Chacon MD [Primary Care Provider] - Barbara Villalta MD [Physician] - Interventions: ED Discharge Assessment Last Done: 07/05/24 08:59 Discharge Date/Time: 07/05/24 02:30 Print Language: Georgian
--- OUTSIDE RECORDS SUMMARY | 2024-07-05 00:05 | XMS_ITS ---
Author Organization [facility] Ben nathan Brimfield Address [address] [facility] [address] Care Team Providers Care Stop Attacher Name Role Phone Anup Chacon MD Primary Care Provider Unavail able Rubén Arshad Unavailable [phone] Allergies Allergen (clinical drug ingredient) Drug/Non Drug Allergy documented on EMR Reaction Allergy Type Onset Date Status sulfamethoxazole / trimethoprim Bactrim Unknown Drug Allergy Active meperidine Demerol rash Drug Allergy Active naproxen Naproxen Unknown Drug Allergy Active REASON FOR VISIT At Risk Footcare, Toe Irritation Medications Medication SIG (Take, Route, Frequency, Duration) Notes Start Date End Date Status Urea 40 % 1 application as needed Externally Twice a day for 30 days Active Metoprolol Tartrate 5 MG/5ML 5 ml Intravenous every 12 hrs Not-Taking Extra Depth Orthopedic Shoes (1 Pair) with Customized Heat Molded Multidensity Innersoles (3 Pair) as directed Dx: IDDM/Polyneuropathy (E10.42), Hammertoe Foot Deformity (M20.41,M20.42), Preulcerative Skin Lesion(s) (L85.1) 01/30/2024 Active Trulicity as directed once a week Active Voltaren 1 % Apply 4 grams to painful area on foot as directed Externally Four times a day for 30 days 05/23/2019 Active Losartan Potassium 100 MG 1 1/2 tablet Orally Once a day Active Metoprolol Succinate ER 200 MG 1 tablet Orally Once a day Active NovoLOG Active Percocet 5-325 MG 1 tablet as needed Orally every 6 hrs daily (3-4 Xs per day) Active Requip 3 MG 1 tablet 1 to 3 hour s before bedtime Orally Once a day Active HumaLOG Active Lansoprazole 15 MG 1 capsule Orally Onc e a day Active FLUoxetine HCl 40 MG 1 capsule Orally On ce a day Active Furosemide 40 MG 1 tablet Orally as needed Active Fenofibrate 54 MG 1 tablet with a meal Orally Once a day Active Atorvastatin Calcium 40 MG 1 tablet Orally Once a day Active Cozaar 50 MG 1 tablet Orally Once a day Active Baby Aspirin Active Baclofen 10 MG 1 tablet with food o r milk Orally Four times a day Active Social History Tobacco Use: Social History Observation Description Date Details (start date - stop date) Never Smoker NA - NA Alcohol Screen Question Answer Notes Did you have a drink containing alcohol in the p ast year? Yes Points 0 Interpretation Negative Tobacco use other than smoking: Question Answer Notes Are you an other tobacco user? No Tobacco Control (Standard) Question Answer Notes Tobacco use: Nonsmoker Additional Findings: Tobacco non-user Current no nsmoker Vital Signs Height 5 ft 8 in in 01/30/2024 Weight 128 lbs 01/30/2024 BMI 19.46 kg/m2 01/30/2024 Procedures Procedure Date Ordered Date Performed Result Body Sit e 84503-APKWHOZ NAIL, 6 OR MORE 01/30/2024 N/A 82765-NUWC SKIN LESIONS, OVER 4 01/30/2024 N/A Encounters Encounter Location Date Provider Diagnosis [facility] [address] [address] 01/30/2024 Rubén Arshad Type 1 diabetes mellitus with diabetic polyneuropathy E10.42 ; Tinea unguium B35.1 ; Other hammer toe(s) (acquired), right foot M20.41 and Other hammer toe(s) (acquired), left foot M20.42 Assessments Encounter Date Diagnosis (ICD Code) Assessment Notes Treatment Notes Treatment Clinical Notes Section Notes 01/30/2024 Type 1 diabetes mellitus with diabetic polyneuropathy (ICD-10 - E10.42) 01/30/2024 Tinea unguium (ICD-10 - B35.1) 01/30/2024 Other hammer toe(s) (acquired), right foot (ICD-10 - M20.41) Patient Educated with: DIABETIC FOOT CARE INSTRUCTIONS. pdf (DIABETIC FOOT CARE INSTRUCTIONS. pdf) 01/30/2024 Other hammer toe(s) (acquired), left foot (ICD-10 - M20.42) Plan Of Treatment Medication Medication Name Sig Start Date Stop Date Notes Extra Depth Orthopedic Shoes (1 Pair) with Customized Heat Molded Multidensity Innersoles (3 Pair) as directed Dx: IDDM/Polyneuropathy (E10.42), Hammertoe Foot Deformity (M20.41,M20.42), Preulcerative Skin Lesion(s) (L85.1) 01/30/2024 Treatment Notes Assessment Notes Other hammer toe(s) (acquired), right fo ot Patient Educated with: DIABETIC FOOT CARE INSTRUCTIONS.pdf (DIABETIC FOOT CARE INSTRUCTIONS.pdf) Pending Test Test Name Order Date 31401-UNZGZWO NAIL, 6 OR MORE 01/30/2024 91393-EYTM SKIN LESIONS, OVER 4 01/30/20 Next Appt Details Follow Up: prn, Reason: Provider Name:Rubén Arshad , 08/30/2024 12:30:00 PM, [address] [place] [address], [id number], Procedure Notes * Category Sub-Category Detail Notes Debride Nail 6-10 Nail debridement Performance o f this nail treatment by a nonprofessional would put this patients foot and overall health at risk. Therefore, nail debridement was performed extensively to reduce/remove overall nail length, girth, thickness, subungual debris, and necrotic tissue, by manual and/or electrical means through the use of a nail nipper and/or dremel-type lap grinder, to a more viable healthy nail plate or bed tissue 6-10. Silver nitrate used for any petechial bleeding as necessary. Definitive antifungal treatment options have been reviewed and discussed with the patient. The patient chooses, no pharmaceutical tx - 65137 Keratoma Treatment Parring or Cutting o f Benign Hyperkeratotic Lesion(s) (-57) More than 4 Lesions - The Benign hyperkeratotic lesions, as described above were pared, and/or cut utilizing a sterile 15 blade, tissue nippers, and/or dremel - 52517 Progress Notes * Mati HOPKINSB: (73 yo M)Acc No.[id number]:01/30/2024 Progress Note Patient:?Mati HOPKINS Jr Provider:?Rubén Arshad DPM :1950???Age:73 Y???Sex:Male Chetan e:01/30/2024 Address[address] [facility] Pcp:Anup Chacon MD Subjective: * Chief Complaints: * ???At Risk FootcareToe Irrit ation * HPI: ???At Risk footcare:?Pt States Last PCP Visit:?Date?01/16/2024 ???Toe pain:?Location:?B/L feet.?Duration:?several years.?Course:?worse.?Aggravated by:?shoes, any pressure.?Treatments:?change in shoes.? * ROS:?General/Constitutional:?Nausea?denies.?Vomiting?denies.?Hunger Thirst?denies.?Loss appetite?denies.?Chills?denies.?Fatigue?denies.?Fever?denies.?Night Sweats?denies.?Unexplained weight loss?denies.?Unexplained weight gain?denies.?HEENTM:?Dentures?denies.?Dizziness?denies.?Glasses/contacts?admits.?Retinopathy?den ies.?Blurred/double vision?denies.?TMJ?denies.?Discharge/drainage?denies.?Implants?denies.?Sore throat?denies.?Dental implants?denies.?Hard of hearing ?denies.?Difficulty chewing/swallowing/speaking?denies.?Nose bleeds?denies.?Sore mouth?denies.?Respiratory:?On O xygen?denies.?Pneumonia/pleurisy?denies.?Bronchitis?denies.?Emphysema?denies.?Co ughing?denies.?Cough blood?denies.?Shortness of breath?denies.?Wheezing?denies.?Cardiovascular:?Pacemaker?denies.?MVP?denies.?WPW?denies.?CHF?denies.?Heart attack?denies.?Septal defect?denies.?Rapid beat?denies.?Chest pain ?denies.?Atrial Fib.?denies.?Murmur/Palpitations?denies.?Gastrointestinal:?Hemorrhoids?denies.?Stomach/Abdominal pain?denies.?Dark blood stool?denies.?Irritable bowel ?denies.?Constipation?denies.?Diarrhea?denies.?Hematology:?Swelling?admits.?Clots?denies.?Varicose Veins?denies.?Bruising?admits, on aspirin.?Bleeding problem?admits, on anticoagulants.?Genitourinary:?Blood urine?denies.?Frequent/Painfu/urination/bladder control?denies.?Kidney stones?denies.?Infection (UTI)?denies.?Nephropathy?denies.?sex trans dis (STD)?denies.?Prostate?denies.?Musculoskeletal:?Hammertoes?admits.?Bunions?denies.?Back Pain?denies.?Muscle Cramps/ Resting?denies.?Muscle cramps / walking?denies.?Generalized aches and pains?denies.?Weakness?denies.?Integ.:?Sanders?denies.?Scars?admits.?Corns/calluses?admits.?Ingrown nails?admits.?Painful nails?denies.?Open Sores?denies.?Rashes?denies.?Neurologic:?Difficulty sleeping?denies.?Brain disorder?denies.?Numbness?admits.?Balance t rouble?denies.?Confusion?denies.?Fainting/blackouts?denies.?Tingling?denies.?Chu mors?denies.? * Medical History:? * Surgical History:?knee surge ry, left eye surgery rotator cuff tear repair 12/19/2018back stimulator surgery 09/22/21 * Hospitalization/Major Diagno stic Procedure:?Denies Past Hospitalization * Family History:?Mother: dece ased, diagnosed with Family history of arthritis, Unspecified essential hypertension, Unspecified heart disease, Other malignant neoplasm of unspecified site.?Father: , foot problems, poor circulation, diagnosed with Family history of arthritis, Diabetic - NIDDM, Unspecified essential hypertension, Other malignant neoplasm of unspecified site.? * Social History:?Tobacco Use:?Tobacco use other than smoking?Are you an other tobacco user??No ?Tobacco Control (Standard)?Tobacco use:?Nonsmoker ?Additional Findings: Tobacco non-user?Current nonsmoker ???Drugs/Alcohol:?Drugs?Have you used drugs other than those for medical reasons in the past 12 months??No ?Alcohol Screen?Did you have a drink containing alcohol in the past year??Yes ?Points?0 ?Interpretation?Negative ???Miscellaneous:?Caffeine: no. ?Children: yes, 1. ?Exercise: no. ?Marital status: . 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 * Medications:?TakingAtorvasta tin Calcium 40 MG Tablet 1 tablet Orally Once a day Baby Aspirin Baclofen 10 MG Tablet 1 tablet with food or milk Orally Four times a day Cozaar 50 MG Tablet 1 tablet Orally Once a day Fenofibrate 54 MG Tablet 1 tablet with a meal Orally Once a day FLUoxetine HCl 40 MG Capsule 1 capsule Orally Once a day Furosemide 40 MG Tablet 1 tablet Orally as needed HumaLOG Lansoprazole 15 MG Capsule Delayed Release 1 capsule Orally Once a day Losartan Potassium 100 MG Tablet 1 1/2 tablet Orally Once a day Metoprolol Succinate ER 200 MG Tablet Extended Release 24 Hour 1 tablet Orally Once a day NovoLOG Percocet 5-325 MG Tablet 1 tablet as needed Orally every 6 hrs , Notes to Pharmacist: daily (3-4 Xs per day)Requip 3 MG Tablet 1 tablet 1 to 3 hours before bedtime Orally Once a day Trulicity as directed once a week Voltaren 1 % Gel Apply 4 grams to painful area on foot as directed Externally Four times a day Urea 40 % Cream 1 application as needed Externally Twice a day Taking Atorvastatin Calcium 40 MG Tablet 1 tablet Orally Once a day Taking Baby Aspirin Taking Baclofen 10 MG Tablet 1 tablet with food or milk Orally Four times a day Taking Cozaar 50 MG Tablet 1 tablet Orally Once a day Taking Fenofibrate 54 MG Tablet 1 tablet with a meal Orally Once a day Taking FLUoxetine HCl 40 MG Capsule 1 capsule Orally Once a day Taking Furosemide 40 MG Tablet 1 tablet Orally as needed Taking HumaLOG Taking Lansoprazole 15 MG Capsule Delayed Release 1 capsule Orally Once a day Taking Losartan Potassium 100 MG Tablet 1 1/2 tablet Orally Once a day Taking Metoprolol Succinate ER 200 MG Tablet Extended Release 24 Hour 1 tablet Orally Once a day Taking NovoLOG Taking Percocet 5-325 MG Tablet 1 tablet as needed Orally every 6 hrs , Notes to Pharmacist: daily (3-4 Xs per day)Taking Requip 3 MG Tablet 1 tablet 1 to 3 hours before bedtime Orally Once a day Taking Trulicity as directed once a week Taking Voltaren 1 % Gel Apply 4 grams to painful area on foot as directed Externally Four times a day Taking Urea 40 % Cream 1 application as needed Externally Twice a day Not-Taking/PRNMetoprolol Tartrate 5 MG/5ML Solution 5 ml Intravenous every 12 hrs Medication List reviewed and reconciled with the patientNot- Taking/PRN Metoprolol Tartrate 5 MG/5ML Solution 5 ml Intravenous every 12 hrs Medication List reviewed and reconciled with the patient * Allergies:?BactrimDemerol: olya Bailey[Allergies Verified] Objective: * Vitals:?Ht:5 ft 8 in, Wt:128 , BMI:19.46, Shoe size:9-9.5, BS:not taken, Ht-cm: 172.72 cm, Wt-k.06 kg. * ???Past Orders: Lab:HEMOGLOBIN A1C (GLYCOHEM OGLOBIN) * Collection Date 12/28/2021 04/25/2019 Order Date 01/04/2022 04/25/2019 HEMOGLOBIN A1C % (HH) 8.0 9.6 * Examination: ???Ophthalmology Referral: ?DIABETES EYE EXAM?Procedure Performed:?Yes ?Date of Exam Performed?09/21/2023 ?Diabetic Retinopathy Screening:?Yes ?Findings of Diabetic Eye Exam:?no retinopathy?Neurological: ?SENSORY:?Neurological exam demonstrates, reduced light touch sensation, reduced sharp/dull discrimination , reduced vibration sensation, plantar aspects, B/L, 5.07 monofilament test performed at plantar aspects of 5 varied sites per foot shows sensation, reduced, B/L.?Nails: ?NAILS are:?Elongated, overgrown, dystrophic, lytic, greater than 3mm thick, discolored and friable with crumbly malodorous subungual debris, TA, T1, T4, T5, T6, T9, remaining nails are elongated, overgrown, dystrophic.?Dermatologic: ?SKIN FINDINGS:?Skin exam reveals Keratotic lesion(s) located at ,Plantar,IPJ, TA,Plantar, IPJ, T5 ,SUB MTH (s), 1, B/L, Heel(s),B/L.?Orthopedic: ?MUSCLE STRENGTH:?Generalized decrease in strength, Decreased with DF , Right, 5/5 all groups in a symmetrical fashion , Left.?GAIT ABNORMALITY:?apropulsive.?FOOT MORPHOLOGY:? Equinus knee extended indicating contracture of Ankle/Foot joints, RIGHT, Pes Planus structure, No Charcot collapse/destruction noted at MTJ.?DIGITAL DEFORMITIES:?Digital contracture, PIPJ, 2-5 B/L, incompl-reducible to push-up test, no over, nor underlapping , with evidence of shoe producing skin irritation.?FOOTWEAR:?worn, OT were inspected and noted to be severely worn , in poor condition not giving proper support at the present time , shoe gear properties exacerbate patients foot/toe deformity.?Vascular: ?DP PULSES (B):?1/, B/L.?PT PULSES (B):?05/11, B/L.?CAPILLARY FILL TIME:?delayed, all digits, B/L.?TROPHIC CONDITION-TEXTURE/ELASTICITY/TURGOR/HAIR GROWTH (B):?decreased, B/L.?TEMPERTURE GRADIENT (C):?decreased, cool to cool, proximal to distal, B/L.?PIGMENTATION:?mottled, B/L.?EDEMA (C):?05/11, non-pitting, without aching pain, B/L, Leg(s), Ankle(s).?General Examination: ?GENERAL APPEARANCE:?Reveals a pleasant, alert, well nourished, well developed, well hydrated individual, who demonstrates proper attention to hygiene/body habitus, and is in no acute distress , Pt serves as own historian for office visit today.?ORIENTED:?person, place, and time.?FOOT EXAM:?Lower Extremity Neurological Exam performed:?Yes ?Visual exam of foot performed:?Yes ?Date?01/30/2024 ?Footwear Evaluation?Footwear Evaluation performed:?Yes??? Assessment: * Assessment: 1.?Type 1 diabetes mellitus with diabetic polyneuropathy - E10.42???2.?Tinea unguium - B35.1???3.?Other hammer toe(s) (acquired), right foot - M20.41???Specify :Chronic problem, Worse (4),Rx Management (4)???4.?Other hammer toe(s) (acquired), left foot - M20.42???Specify :Chronic problem, Worse (4),Rx Management (4)??? Plan: * Treatment: 2.?Other hammer toe(s) (acqu ired), right foot? Start Extra Depth Orthopedic Shoes (1 Pair) with Customized Heat Molded Multidensity Innersoles (3 Pair), as directed, Dx: IDDM/Polyneuropathy (E10.42), Hammertoe Foot Deformity (M20.41,M20.42), Preulcerative Skin Lesion(s) (L85.1), 1, Refills 0.?? Notes: Patient Educated with: DIABETIC FOOT CARE INSTRUCTIONS.pdf (DIABETIC FOOT CARE INSTRUCTIONS.pdf)?? * Procedures:?Debride Nail 6-10:?Nail debridement?Performance of this nail treatment by a nonprofessional would put this patients foot and overall health at risk. Therefore, nail debridement was performed extensively to reduce/remove overall nail length, girth, thickness, subungual debris, and necrotic tissue, by manual and/or electrical means through the use of a nail nipper and/or dremel-type lap grinder, to a more viable healthy nail plate or bed tissue 6-10. Silver nitrate used for any petechial bleeding as necessary. Definitive antifungal treatment options have been reviewed and discussed with the patient. The patient chooses, no pharmaceutical tx - 67181.?Keratoma Treatment:?Parring or Cutting of Benign Hyperkeratotic Lesion(s)?(-57) More than 4 Lesions - The Benign hyperkeratotic lesions, as described above were pared, and/or cut utilizing a sterile 15 blade, tissue nippers, and/or dremel - 62755.? * Procedure Codes:?70154 DEBRI DE NAIL, 6 OR MORE, Modifiers: XS 35585 TRIM SKIN LESIONS, OVER 4, Modifiers: XS * Preventive Medicine:? ??Counseling:?Discussion:?-14: Office or other outpatient visit for the evaluation and management of an established patient, which required a medically appropriate history and/or examination and MODERATE level of DECISION MAKING for: 1 OR MORE CHRONIC PROBLEM(S) THATS WORSENING, 2 STABLE CHRONIC PROBLEMS, A NEWLY DIAGNOSED PROBLEM WITH UNCERTAIN PROGNOSIS, AN ACUTE COMPLICATED INJURY WITH MULTIPLE TREATMENT OPTIONS, OR AN ACUTE PROBLEM WITH ACCOMPANYING SYSTEMIC SYMPTOMS, THAT POSE(S) A MODERATE RISK OF MORBIDITY. THIS CONDITION MAY ALSO INCLUDE RX DRUG MANAGEMENT, OR A DECISON FOR MINOR SURGERY. The visit on the day of the encounter encompassed interpreting the data and educating the patient as to the nature of their condition, treatment options available according to their individual PMH, meds, allergies, and overall health/living conditions, as well as any potential risks or complications that may occur from a failure to adhere to, and participate in, the recommended course of therapy. The discussion included a complete verbal, and/or written explanation of the examination results, any x-rays taken, the proposed diagnosis, and outline of the treatment plan. A schedule for future care needs was also explained. The patient verbalized an understanding of the instructions at this time and agreed to be an active participant in their treatment. If the patient should think of any questions or concerns after the visit, I have encouraged the patient to call the office.?Digital Surgery:?Digital surgery was discussed with the patient, We elected to try conservative treatment at the present time, due to the patients medical history and increased asssociated post-operative risks.?Digital Treatment:?HT- I explained to the patient the possible etiologies of Hammertoes, including genetics/foot type/shoegear/activity level/exercise routine and the risks/benefits of all the different treatment options for their pain including: No treatment at all, Rest, Ice, New/supportive/wider/deeper Shoegear, Digital Padding/Strapping/Taping/Bracing/Gel protective sleeves, Foot/Ankle AFO Bracing, Stretching exercises, Deep Tissue Massage, Arch support/shoe inserts with splay metatarsal padding, and Custom orthoses. I insisted that any digital devices be removed daily and not worn overnight for safety. The patient is to carefully examine the toes daily for any skin irritation while using any splinting or padding device. The advantages and disadvantages of each option were discussed and the patients questions re: shoegear, padding, custom vs prefabricated inserts, activity level, and consistency in home treatment regimens for optimal success were answered to their verbally confirmed satisfaction.?Shoe Gear Counseling:?SHOE Rx - The patient was counseled in great detail on their muscoloskeletal foot and toe deformities which coincided with the dermatological presentations visualized on exam. We discussed how their deformities put the integrity of their feet at risk for potential pedal complications which makes the accomidative diabetic shoes and cutomizable inserts medically necessary. We discussed the different shoe and insert treatment types and options, as well as the important advantages for adhering to regularly wearing these accomidative devices daily. The patient was made aware of the fact that a failure to abide by these recommedations may be deleterious to their foot health as they are able to prevent many pedal complications such as skin irritation, skin ulceration, infection, and even loss of toe/foot/leg/or life. Time was also spent with the patient dispensing and discussing proper diabetic footcare techniques including daily skin moisturization, daily foot inspection for any interruption in skin integrity including open lesions, or sign of infection such as redness/malodor/drainage/swelling. Also discussed and recommended were procedures regarding daily shoe inspection for the presence of internal foreign bodies as well as any visualized irregular shoe or insert wear. Patient questions re: shoes, inserts, and self foot inspections were answered to their satisfaction as the patient verbally confirmed a full understanding of the above information. A Rx for Extra Depth Orthopedic Shoes with 3 pair of custom heat-molded inserts was dispensed.? ??Screening/Special Tests:?Fall Risk?Screening:?No falls in the past year ?FALLS: Screening for Future Fall Risk?Have you had any falls with injury in the past year??No * Follow Up:?prn * Images: * Sign off status: Completed true * Provider:?Ruébn Arshad DPM Date:?2023 Generated for Mich duckworth/Patrick/Oren on:?07/05/2024 12:05 AM EST History and Physical Notes * HPI (History of Present Illness) Category Sub-Category Detail Notes Category Not es Toe pain Location: B/L feet Duration: several years Course: worse Aggravated by: shoes, any pressure Treatments: change in shoes At Risk footcare Pt States Last PCP Visit: Date: 4 Examination Category Sub-Category Detail Notes Category Not es Neurological SENSORY: Neurological exa m demonstrates, reduced light touch sensation, reduced sharp/dull discrimination , reduced vibration sensation, plantar aspects, B/L, 5.07 monofilament test performed at plantar aspects of 5 varied sites per foot shows sensation, reduced, B/L Dermatologic SKIN FINDINGS: Skin exam reveal s Keratotic lesion(s) located at ,Plantar,IPJ, TA,Plantar, IPJ, T5 ,SUB MTH (s), 1, B/L, Heel(s),B/L Orthopedic GAIT ABNORMALITY: apropulsive FOOT MORPHOLOGY: Equinus knee extende d indicating contracture of Ankle/Foot joints, RIGHT, Pes Planus structure, No Charcot collapse/destruction noted at MTJ FOOTWEAR: worn, OT were inspec diane and noted to be severely worn , in poor condition not giving proper support at the present time , shoe gear properties exacerbate patients foot/toe deformity DIGITAL DEFORMITIES: Digital contracture , PIPJ, 2-5 B/L, incompl-reducible to push-up test, no over, nor underlapping , with evidence of shoe producing skin irritation MUSCLE STRENGTH: Generalized decrease in strength, Decreased with DF , Right, 5/5 all groups in a symmetrical fashion , Left General Examination GENERAL APPEARANCE: Reveals a pleasant, alert, well nourished, well developed, well hydrated individual, who demonstrates proper attention to hygiene/body habitus, and is in no acute distress , Pt serves as own historian for office visit today FOOT EXAM: Lower Extremity Neurological Exa m performed:: Yes Visual exam of foot performed:: Yes Date: 01/30/2024 ORIENTED: person, place, and t cristian Footwear Evaluation Footwear Evaluation performe d:: Yes Ophthalmology Referral DIABETES EYE EXAM Procedure Perform ed:: Yes ?Date of Exam Performed: 09/21/2023 Diabetic Retinopathy Screening:: Yes Findings of Diabetic Eye Exam:: no retin opathy Vascular DP PULSES (B): 1/4, B/L PT PULSES (B): 1/4, B/L CAPILLARY FILL TIME: delayed, all digits , B/L TEMPERTURE GRADIENT (C): decreased, cool to cool, proximal to distal, B/L TROPHIC CONDITION-TEXTURE/ELASTICITY/TURGOR/HAIR GROWTH (B): decreased, B/L EDEMA (C): 1/4, non-pitting, wi thout aching pain, B/L, Leg(s), Ankle(s) PIGMENTATION: mottled, B/L Nails NAILS are: Elongated, overg rown, dystrophic, lytic, greater than 3mm thick, discolored and friable with crumbly malodorous subungual debris, TA, T1, T4, T5, T6, T9, remaining nails are elongated, overgrown, dystrophic
--- OUTSIDE RECORDS SUMMARY | 2024-07-05 00:05 | XMS_ITS ---
Author Organization [facility] [place] Address [address] Counts include [address] beds at [place] [facility] [address] Care Team Providers Care Senior Financial Analyst Name Role Phone Anup Chacon MD Primary Care Provider Unavail able Rubén Arshad Unavailable [phone] Allergies Allergen (clinical drug ingredient) Drug/Non Drug Allergy documented on EMR Reaction Allergy Type Onset Date Status sulfamethoxazole / trimethoprim Bactrim Unknown Drug Allergy Active meperidine Demerol rash Drug Allergy Active naproxen Naproxen Unknown Drug Allergy Active REASON FOR VISIT At Risk Footcare, Toe Irritation Medications Medication SIG (Take, Route, Frequency, Duration) Notes Start Date End Date Status Metoprolol Tartrate 5 MG/5ML 5 ml Intravenous every 12 hrs Not-Taking Urea 40 % 1 application as needed Externally Twice a day for 30 days Active Extra Depth Orthopedic Shoes (1 Pair) with Customized Heat Molded Multidensity Innersoles (3 Pair) as directed Dx: IDDM/Polyneuropathy (E10.42), Hammertoe Foot Deformity (M20.41,M20.42), Preulcerative Skin Lesion(s) (L85.1) 01/30/2024 Active Trulicity as directed once a week Active Voltaren 1 % Apply 4 grams to painful area on foot as directed Externally Four times a day for 30 days 05/23/2019 Active NovoLOG Active Losartan Potassium 100 MG 1 1/2 tablet Orally Once a day Active Metoprolol Succinate ER 200 MG 1 tablet Orally Once a day Active Percocet 5-325 MG 1 tablet as [...] Once a day Active Baby Aspirin Active Cozaar 50 MG 1 tablet Orally Once a day Active Baclofen 10 MG 1 tablet with food o r milk Orally Four times a day Active Social History Tobacco Use: Social History Observation Description Date Details (start date - stop date) Never Smoker NA - NA Tobacco use other than smoking: Question Answer Notes Are you an other tobacco user? No Tobacco Control (Standard) Question Answer Notes Tobacco use: Nonsmoker Additional Findings: Tobacco non-user Current no nsmoker AUDIT-C (Standard) Question Answer Notes Did you have a drink containing alcohol in the p ast year? No Points 0 Interpretation Negative Vital Signs Height 5 ft 8 in in 05/28/2024 Weight 125 lbs 05/28/2024 BMI 19 kg/m2 05/28/2024 Blood pressure systolic 118 mm Hg 05/28/19 25 Blood pressure diastolic 75 mm Hg 025 Procedures Procedure Date Ordered Date Performed Result Body Sit e 33318-NVERIRA NAIL, 6 OR MORE 05/28/2024 N/A 17209-LHIF SKIN LESIONS, OVER 4 05/28/2024 N/A Encounters Encounter Location Date Provider Diagnosis [facility] [place] [address] [place] [address] 05/28/2024 Rubén Arshad Type 1 diabetes mellitus with diabetic polyneuropathy E10.42 ; Tinea unguium B35.1 ; Other hammer toe(s) (acquired), right foot M20.41 and Other hammer toe(s) (acquired), left foot M20.42 Assessments Encounter Date Diagnosis (ICD Code) Assessment Notes Treatment Notes Treatment Clinical Notes Section Notes 05/28/2024 Type 1 diabetes mellitus with diabetic polyneuropathy (ICD-10 - E10.42) 05/28/2024 Tinea unguium (ICD-10 - B35.1) 05/28/2024 Other hammer toe(s) (acquired), right foot (ICD-10 - M20.41) Response to treatment,Impro vement 05/28/2024 Other hammer toe(s) (acquired), left foot (ICD-10 - M20.42) Response to treatment,Impro vement Plan Of Treatment Pending Test Test Name Order Date 43862-WOLRVWB NAIL, 6 OR MORE 05/28/2024 54428-TOKK SKIN LESIONS, OVER 4 05/28/19 Next Appt Details Follow Up: prn, Reason: Provider Name:Rubén Arshad , 08/30/2024 12:30:00 PM, [address] [place] [address], [id number], Procedure Notes * Category Sub-Category Detail Notes Debride Nail 6-10 Nail debridement Due to the cl inical pathology outlined in the exam findings, performance of this nail treatment is medically necessary as its management by an unskilled/untrained nonprofessional would put this patients foot and overall health at risk. Therefore, debridement to affected nail(s), as described in exam ( TA, T1, T4, T5, T6, T9 ), was performed exclusively by the physician of record to reduce/remove overall nail length, girth, thickness, subungual debris, and necrotic tissue, by manual and/or electrical means through the use of a nail nipper and/or dremel-type refractory grinder operator, to a more viable healthy nail plate or bed tissue 6-10 nails in total. Silver nitrate was used for any petechial bleeding as necessary. Definitive antifungal treatment options, both pharmaceutical and surgical, have been reviewed and discussed with the patient. The patient solely prefers the use of intermittent/as needed professional debridement services for their nail condition and understands the need for additional periodic treatments to maintain effectiveness in symptomatic relief - 79841 Keratoma Treatment Parring or Cutting o f Benign Hyperkeratotic Lesion(s) (-56) 2-4 Lesions - Due to the at risk nature of the patients medical condition as documented in the exam findings, performance of this keratoderma treatment is medically necessary as its management by an unskilled/untrained nonprofessional would put this patients foot and overall health at risk. Therefore, the benign hyperkeratotic lesions, ( 6 ) in total, locations as stated and described in the exam ( Plantar,IPJ, TA,Plantar, IPJ, T5 ,SUB MTH (s), 1, B/L, Plantar, Heel(s),B/L ), were pared, and/or cut utilizing a sterile 15 blade, tissue nippers, and/or power dremel instrumentation by the physician of record - 04143 Progress Notes * Mati HOPKINS JrDOB: (73 yo M)Acc No.[id number]:05/28/2024 Progress Note Patient:?Mati HOPKINS Jr Provider:?Rubén Arshad DPM :1950???Age:73 Y???Sex:Male Chetan e:05/28/2024 Address:[address] [place], [place] [id number] Pcp:Anup Chacon MD Subjective: * Chief Complaints: * ???At Risk FootcareToe Irrit ation * HPI: ???At Risk footcare:?Pt States Last PCP Visit:?Date?05/20/2024 ???Toe pain:?Treatments:?Rx shoes .? * ROS:?General/Constitutional:?Nausea?denies.?Vomiting?denies.?Hunger Thirst?denies.?Loss appetite?denies.?Chills?denies.?Fatigue?denies.?Fever?denies.?Night Sweats?denies.?Unexplained weight loss?denies.?Unexplained [...] * Family History:?Mother: dece ased, diagnosed with Other malignant neoplasm of unspecified site, Unspecified essential hypertension, Unspecified heart disease, Family history of arthritis.?Father: , foot problems, poor circulation, diagnosed with Other malignant neoplasm of unspecified site, Diabetic - NIDDM, Unspecified essential hypertension, Family history of arthritis.? * Social History:?Tobacco Use:?Tobacco use other than smoking?Are you an other tobacco user??No ?Tobacco Control (Standard)?Tobacco use:?Nonsmoker ?Additional Findings: Tobacco non-user?Current nonsmoker ???Drugs/Alcohol:?Drugs?Have you used drugs other than those for medical reasons in the past 12 months??No ???Miscellaneous:?Caffeine: no. ?Children: yes, 1. ?Exercise: no. ?Marital status: . 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 ???Drug/Alcohol:?AUDIT-C (Standard)?Did you have a drink containing alcohol in the past year??No ?Points?0 ?Interpretation?Negative * Medications:?TakingAtorvasta tin Calcium 40 MG Tablet [...] application as needed Externally Twice a day Extra Depth Orthopedic Shoes (1 Pair) with Customized Heat Molded Multidensity Innersoles (3 Pair) as directed Dx: IDDM/Polyneuropathy (E10.42), Hammertoe Foot Deformity (M20.41,M20.42), Preulcerative Skin Lesion(s) (L85.1) Taking Atorvastatin Calcium 40 MG Tablet 1 [...] as needed Externally Twice a day Taking Extra Depth Orthopedic Shoes (1 Pair) with Customized Heat Molded Multidensity Innersoles (3 Pair) as directed Dx: IDDM/Polyneuropathy (E10.42), Hammertoe Foot Deformity (M20.41,M20.42), Preulcerative Skin Lesion(s) (L85.1) Not-Taking/PRNMetoprolol Tartrate 5 MG/5ML Solution 5 ml Intravenous every 12 hrs Medication List reviewed and reconciled with the patientNot-Taking/PRN Metoprolol Tartrate 5 MG/5ML Solution 5 ml Intravenous every 12 hrs Medication List reviewed and reconciled with the patient * Allergies:?BactrimDemerol: r Leo[Allergies Verified] Objective: * Vitals:?Ht:5 ft 8 in, Wt:125 , BMI:19, Shoe size:9-9.5, BP:118/75mm Hg, BS:137, Ht-cm: 172.72 cm, Wt-k.7 kg. * ???Past Orders: ???Lab:HEMOGLOBIN A1C (GLYCO HEMOGLOBIN) (Order Date - 05/09/2024) (Collection Date & Time - 05/20/2024 01:57 PM) ? Value Reference Range ?HEMOGLOBIN A1C % (HH) 6.7 * Examination: ???Ophthalmology Referral: ?DIABETES EYE EXAM?Procedure Performed:?Yes ?Date of Exam Performed?02/07/2024 ?Diabetic Retinopathy Screening:?Yes ?Findings of Diabetic Eye [...] debris, TA, T1, T4, T5, T6, T9, all other nails not described with characteristics as possessing mycosis are elongated, overgrown, and dystrophic.?Dermatologic: ?SKIN FINDINGS:?Skin exam reveals Keratotic lesion(s) located at ,Plantar,IPJ, TA,Plantar, IPJ, T5 ,SUB MTH (s), 1, B/L, Plantar, Heel(s),B/L.?Orthopedic: ?DIGITAL DEFORMITIES:?Digital contracture, PIPJ, 2-5 B/L, incompl-reducible to push-up test, no over, nor underlapping , no longer, with evidence of shoe producing skin irritation.?FOOTWEAR:?good condition, exhibit proper fit and accommodation for pedal deformities. OT were inspected and noted to be worn, but in good condition giving proper support at the present time.?General Examination: ?GENERAL APPEARANCE:?Reveals a pleasant, alert, well nourished, well developed, well hydrated individual, who demonstrates proper attention to hygiene/body habitus, and is in no acute distress , Pt serves as own historian for office visit today.?ORIENTED:?person, place, and time.?FOOT EXAM:?Lower Extremity Neurological Exam performed:?Yes ?Visual exam of foot performed:?Yes ?Date?05/28/2024 ?Footwear Evaluation?Footwear Evaluation performed:?Yes??? Assessment: * Assessment: 1.?Type 1 diabetes mellitus with diabetic polyneuropathy - E10.42 (Primary)???2.?Tinea unguium - B35.1???3.?Other hammer toe(s) (acquired), right foot - M20.41???Specify :Chronic problem, Stable (1=3,2=4)???Notes :Response to treatment,Improvement???4.?Other hammer toe(s) (acquired), left foot - M20.42???Specify :Chronic problem, Stable (1=3,2=4)???Notes :Response to treatment,Improvement??? Plan: * Treatment: * Procedures:?Debride Nail 6-10:?Nail debridement?Due to the clinical pathology outlined in the exam findings, performance of this nail treatment is medically necessary as its management by an unskilled/untrained nonprofessional would put this patients foot and overall health at risk. Therefore, debridement to affected nail(s), as described in exam (?TA,?T1,?T4,?T5,?T6,?T9?), was performed exclusively by the physician of record to reduce/remove overall nail length, girth, thickness, subungual debris, and necrotic tissue, by manual and/or electrical means through the use of a nail nipper and/or dremel-type refractory grinder operator, to a more viable healthy nail plate or bed tissue 6-10 nails in total. Silver nitrate was used for any petechial bleeding as necessary. Definitive antifungal treatment options, both pharmaceutical and surgical, have been reviewed and discussed with the patient. The patient solely prefers the use of intermittent/as needed professional debridement services for their nail condition and understands the need for additional periodic treatments to maintain effectiveness in symptomatic relief - 92410.?Keratoma Treatment:?Parring or Cutting of Benign Hyperkeratotic Lesion(s)?(-56) 2-4 Lesions - Due to the at risk nature of the patients medical condition as documented in the exam findings, performance of this keratoderma treatment is medically necessary as its management by an unskilled/untrained nonprofessional would put this patients foot and overall health at risk. Therefore, the benign hyperkeratotic lesions, ( 6 ) in total, locations as stated and described in the exam (?Plantar,IPJ,?TA,Plantar,?IPJ,?T5?,SUB MTH (s),?1,?B/L,?Plantar,?Heel(s),B/L?), were pared, and/or cut utilizing a sterile 15 blade, tissue nippers, and/or power dremel instrumentation by the physician of record - 97934.? * Procedure Codes:?44094 DEBRI DE NAIL, 6 OR MORE, Modifiers: XS 00145 TRIM SKIN LESIONS, OVER 4, Modifiers: XS [id number] Pall serv during essence * Preventive Medicine:? ??Counseling:?Discussion:?-13: Office or other outpatient visit for the evaluation and management of an established patient, which required a medically appropriate history and/or examination and LOW level of DECISION MAKING for: 1 STABLE ACUTE UNCOMPLICATED PROBLEM, 2 OR MORE MINOR PROBLEMS, OR 1 STABLE CHRONIC PROBLEM, THAT POSE(S) A LOW RISK FOR MORBIDITY/MORTALITY. The visit on the day of the [...] have encouraged the patient to call the office.?Shoe Gear Counseling:?A thorough inspection of the patients Rxed shoegear and inserts was performed and findings communicated. We reviewed the many important medical advantages for adhering to regularly wearing these shoe and insert accomidative devices daily as well as reviewed the fact that a failure in accepting these recommedations may be deleterious, unable to prevent, and disadvantagely result in, many pedal complications such as skin irritation, skin ulceration, infection, and even loss of toe/foot/leg/or even their life. Time was also spent reviewing the proper footcare techniques including daily skin moisturization, daily foot inspection for any interruption in skin integrity, open lesions, or sign of infection such as redness/malodor/drainage/swelling as well as daily shoe inspection for the presence of internal foreign bodies and shoe as well as insert wear. Patient questions re: shoes, inserts, and self foot inspections were answered to their satisfaction as the patient verbally confirmed a full understanding of the above information.? ??Screening/Special Tests:?Fall Risk?Screening:?No falls in the past year ?FALLS: Screening for Future Fall Risk?Have you had any falls with injury in the past year??No * Follow Up:?prn * Images: * Sign off status: Completed true * Provider:?Rubén Arshad DPM Date:?2024 Generated for Mich duckworth/Patrick/Didiersmitting on:?07/05/2024 12:05 AM EST History and Physical Notes * HPI (History of Present Illness) Category Sub-Category Detail Notes Category Not es Toe pain Treatments: Rx shoes At Risk footcare Pt States Last PCP Visit: Date: Examination Category Sub-Category Detail Notes Category Not [...] IPJ, T5 ,SUB MTH (s), 1, B/L, Plantar, Heel(s),B/L Orthopedic FOOTWEAR: good condition, exhibit proper fit and accommodation for pedal deformities. OT were inspected and noted to be worn, but in good condition giving proper support at the present time DIGITAL DEFORMITIES: Digital contracture , PIPJ, 2-5 B/L, incompl-reducible to push-up test, no over, nor underlapping , no longer, with evidence of shoe producing skin irritation General Examination GENERAL APPEARANCE: Reveals a pleasant, alert, well nourished, well developed, well hydrated individual, who demonstrates proper attention to hygiene/body habitus, and is in no acute distress , Pt serves as own historian for office visit today FOOT EXAM: Lower Extremity Neurological Exa m performed:: Yes Visual exam of foot performed:: Yes Date: 05/28/2024 ORIENTED: person, place, and t cristian Footwear Evaluation Footwear Evaluation performe d:: Yes Ophthalmology Referral DIABETES EYE EXAM Procedure Perform ed:: Yes ?Date of Exam Performed: 02/07/2024 Diabetic Retinopathy Screening:: Yes Findings of Diabetic Eye Exam:: no retin opathy Nails NAILS are: Elongated, overg rown, dystrophic, lytic, greater than 3mm thick, discolored and friable with crumbly malodorous subungual debris, TA, T1, T4, T5, T6, T9, all other nails not described with characteristics as possessing mycosis are elongated, overgrown, and dystrophic
--- OUTSIDE RECORDS SUMMARY | 2024-07-05 00:05 | XMS_ITS | Clinical Summary ---
Author Organization [facility] Address [address] [place] [address] Phone Care Team Providers Care Emergency Department Physician Name Role Phone Anup Chacon MD Primary Care Provider Allergies Active Allergy Reactions Criticality Noted Date Comments Meperidine Hcl Other (see comments) 05/25/2021 Naproxen Other (see comments) 07/22/2020 Sulfa Antibiotics Other (see comments) 07/23/19 Sulfamethoxazole-Trimethoprim Other (see comments) 05/25/2021 Medications aspirin (ST MATI) 81 MG EC tablet Take 1 tablet by mouth 1 (one) time each day Active atorvastatin (LIPITOR) 80 MG tablet Take 1 tablet by mouth 1 (one) time each day Active Dulaglutide (Trulicity) 0.75 MG/0.5ML solution pen-injector Active fenofibrate (TRICOR) 54 MG tablet Take 1 tablet by mouth 1 (one) time each day Active hydrOXYzine (ATARAX) 25 MG tablet Take 1 tablet by mouth if needed Active insulin aspart (NovoLOG) 100 UNIT/ML injection Ac tive metoprolol tartrate (LOPRESSOR) 100 MG tablet Take 2 tablets by mouth 1 (one) time each day Active oxyCODONE-acetami nophen (PERCOCET) 10-325 MG per tablet Take 1 tablet by mouth 5 (five) times a day 1 Active amLODIPine (NORVASC) 5 MG tablet Take 1 tablet by mouth 1 (one) time each day 1 Active rOPINIRole (REQUIP) 3 MG tablet Take 1 tablet by mouth at night if needed 1 Active Vortioxetine HBr 20 MG tablet Take 1 tablet by mouth 1 (one) time each day 2 Active traZODone (DESYREL) 100 MG tablet Take 50 mg by mouth every night 2 Active Combigan 0.2-0.5 % ophthalmic solution 2 Active betamethasone dipropionate 0.05 % cream APPLY TO AFFECTED AREA TWICE A DAY NEEDED 2 Active alpha tocopherol (VITAMIN E) 200 units capsule Take 200 Units by mouth 1 (one) time each day Active timolol (BETIMOL) 0.5 % ophthalmic solution 1 drop 2 (two) times a day Active chlorthalidone 25 MG tablet Take 25 mg by mouth 1 (one) time each day Active cholecalciferol (VITAMIN D-3) 25 MCG (1000 UT) capsule Take 1,000 Units by mouth 1 (one) time each day Active omeprazole (PriLOSEC) [address] capsule Take 40 mg by mouth 1 (one) time each day Do not crush or chew. Active Dapagliflozin Propanediol (Farxiga) 5 MG tablet Take 5 mg by mouth 1 (one) time each day in the morning 90 tablet 3 3 Active losartan (COZAAR) 100 MG tablet Take 1 tablet (100 mg total) by mouth 1 (one) time each day 90 tablet 3 4 Active Active Problems Problem Noted Date Diagnosed Date Stage 3b chronic kidney disease 07/20/2022 Obese class II 02/01/2022 Acquired hammer toe of left foot 07/21/2021 Acquired hammer toe of right foot 07/21/2021 Chronic low back pain 07/21/2021 Hyperlipidemia 07/21/2021 Obstructive sleep apnea syndrome 07/21/2021 Polyneuropathy due to type 1 diabetes mellitus 0 07/21/2021 Restless legs 07/21/2021 Right foot drop 07/21/2021 Hypertension 12/16/2020 Stage 3a chronic kidney disease 07/22/2020 Hypertensive chronic kidney disease, unspecified, with chronic kidney disease stage I through stage IV, or unspecified 07/22/2020 Renal disorder due to type 2 diabetes mellitus 0 07/22/2020 Acute nontraumatic kidney injury 05/08/2010 Coronary arteriosclerosis 08/07/2005 Type 2 diabetes mellitus 06/09/2002 Overview (07/21/2021): insulin dependent Immunizations Name Administration Dates Next Due Influenza (IM) Preservative Free 03/18/2019,08/2018,03/03/2017 Pfizer SARS-COV-2 08/06/2020,07/16/2020 Pneumococcal Polysaccharide 02/14/2009 Family History Medical History Relation Comments Cancer Father Diabetes Father Hypertension Father Kidney disease Father Hypertension Mother Stroke Mother Relation Status Comments Father Alive Mother Alive Social History Tobacco Use Types Packs/Day Years Used Date Smoking Tobacco: Never Smokeless Tobacco: Never Tobacco Cessation:Counseling Given: Not Answered Alcohol Use Standard Drinks/Week Comments Yes 0 (1 standard drink = 0.6 oz pure alcohol) Alcoholic Drinks/day: Occasional social drink Sex and Gender Information Value Date Recorded Sex Assigned at Not on file Legal Sex Male 5:01 PM EST Gender Identity Not on file Sexual Orientation Not on file Last Filed Vital Signs Vital Sign Reading Time Taken Comments Blood Pressure 136/82 08/31/2022 3:17 PM EDT Pulse 55 08/31/2022 3:17 PM EDT Temperature - - Respiratory Rate - - Oxygen Saturation 97% 02/02/2022 2:42 PM EDT Inhaled Oxygen Concentration - - Weight 119 kg (263 lb) 08/31/2022 3:17 PM EDT Height 172.7 cm (5' 8 ) 01/22/2020 12:00 PM EDT Body Mass Index 39.99 01/22/2020 12:00 PM EDT Plan of Treatment Health Maintenance Due Date Last Done Comments Colorectal Cancer Screening: Annual FOBT 1999 Colorectal Cancer Screening: Colonoscopy 1999 Colorectal Cancer Screening: Sigmoidoscopy 1999 Diabetes: Ophthalmology Exam 06/07/2020 Diabetes: Pedal Pulse Checked 06/07/2020 Diabetes: Sensory Foot Exam 06/07/2020 Diabetes: Visual Foot Exam 06/07/2020 Diabetes: Hemoglobin A1C 12/30/2021 022, 07/21/2021, 06/01/2021, Additional history exists Influenza Vaccine (#1) 2024 9, 03/12/2019, 05/11/2018, Additional history exists Pneumococcal Vaccine: 65+ Years Completed 09/15/2016, 05/12/2015, 03/08/2009, Additional history exists Hepatitis B Vaccine Aged Out No longe r eligible based on patient's age to complete this topic Procedures Procedure Name Priority Date/Time Associated Diagnosis Comments EXT RESULT ENTRY Routine 09/29/2021 from Last 3 Months or Most Recently Relevant to Health Maintenance Results * (ABNORMAL) EXT RESULT ENTRY (09/29/2021) WBC 8.8 3.3 - 10.0 10*3/ML Red Blood Cell Count 4.57 Hemoglobin 13.6 13.5 - 17.5 Hematocrit 43.4 41.0 - 53.0 Platelets 341 150 - 399 10*3/UL MCV 95.0 82.0 - 108.0 Sodium 145 137 - 147 Potassium 4.1 3.4 - 5.5 Chloride 106.0 99.0 - 108.0 Bicarbonate (CO2) 29 22 - 30 mmol/L Anion Gap 10 <=30 MMOL/L Glucose 48(A) 60 - 200 BUN 23(A) 4 - 21 mg/dL Creatinine 2.00(A) 0.60 - 1.30 mg/dL Total Protein 6.3(A) 6.4 - 8.2 G/DL Albumin 3.7 3.5 - 5.0 g/dL Calcium 9.4 8.7 - 10.7 mg/dL eGFR Non-Afr Panamanian 36 Total Bilirubin 0.2 MG/DL ALT (SGPT) 15 U/L AST (SGOT) 15 U/L Alkaline Phosphatase 68 U/L Hemoglobin A1C 8.6(A) 4.0 - 6.0 Alb/Creat Ratio, Ur 2,760.6 mg/g Creat Microalbumin Urine Random (External Result Entry) 4,820.0 Triglycerides 249(A) 40 - 160 Cholesterol 155 0 - 200 HDL 34(A) 35 - 70 MG/DL LDL Calculated 71 0 - 160 mg/dL 09/29/2021 us Historical Provider LAB BLOOD ORDERABLES Deepa l Result from Last 3 Months or Most Recently Relevant to Health Maintenance Insurance [facility] MEDICARE [facility] MEDICARE Care Teams Emergency Department Physician Relationship Specialty Start Date End Date Anup Chacon MD [address] [facility] - General 05/18/20
--- OUTSIDE RECORDS SUMMARY | 2024-07-05 00:05 | XMS_ITS | Patient Health Record ---
Author Organization [facility] Ben Majano Address [address] [facility] [address] Care Team Providers Care Prevention Coordinator Name Role Phone Anup Chacon MD Primary Care Provider Unavail able Rubén Arshad Unavailable [phone] Allergies Allergen (clinical drug ingredient) Drug/Non Drug Allergy documented on EMR Reaction Allergy Type Onset Date Status sulfamethoxazole / trimethoprim Bactrim Unknown Drug Allergy Active meperidine Demerol rash Drug Allergy Active naproxen Naproxen Unknown Drug Allergy Active Results Component Value Reference Range Notes HEMOGLOBIN A1C (GLYCOHEMOGLO BIN) Reviewed date:05/28/2024 01:59:15 PM Interpretation: Performing Lab: Notes/Report: HEMOGLOBIN A1C % (HH) 6.7 Reason For Referral No Information Medications Medication SIG (Take, Route, Frequency, Duration) Notes Start Date End Date Status Atorvastatin Calcium 40 MG 1 tablet Orally Once a day Active NovoLOG Active Baby Aspirin Active Losartan Potassium 100 MG 1 1/2 tablet Orally Once a day Active Metoprolol Succinate ER 200 MG 1 tablet Orally Once a day Active HumaLOG Active Metoprolol Tartrate 5 MG/5ML 5 ml Intravenous every 12 hrs Not-Taking Lansoprazole 15 MG 1 capsule Orally Onc e a day Active FLUoxetine HCl 40 MG 1 capsule Orally On ce a day Active Urea 40 % 1 application as needed Externally Twice a day for 30 days Active Furosemide 40 MG 1 tablet Orally as needed Active Extra Depth Orthopedic Shoes (1 Pair) with Customized Heat Molded Multidensity Innersoles (3 Pair) as directed Dx: IDDM/Polyneuropathy (E10.42), Hammertoe Foot Deformity (M20.41,M20.42), Preulcerative Skin Lesion(s) (L85.1) 01/30/2024 Active Cozaar 50 MG 1 tablet Orally Once a day Active Trulicity as directed once a week Active Fenofibrate 54 MG 1 tablet with a meal Orally Once a day Active Voltaren 1 % Apply 4 grams to painful area on foot as directed Externally Four times a day for 30 days 05/23/2019 Active Percocet 5-325 MG 1 tablet as needed Orally every 6 hrs daily (3-4 Xs per day) Active Baclofen 10 MG 1 tablet with food o r milk Orally Four times a day Active Requip 3 MG 1 tablet 1 to 3 hour s before bedtime Orally Once a day Active Immunizations Vaccine Route Administration Date Status Comme nts Pneumococcal Unknown 01/28/2016 Administered Influenza Unknown 03/03/2017 Administered Influenza Unknown 05/11/2018 Administered Influenza Unknown 03/18/2021 Administered COVID-19 Pfizer BioNTech Vaccine Unknown 08/06/2020 Administered 1st 07/16/20 2nd 08/06/20 Social History Tobacco Use: Social History Observation [...] ast year? No Points 0 Interpretation Negative Problems Problem Type SNOMED Code ICD Code Onset Dates Problem Status W/U Status Risk Notes Problem Acquired hammer toe of right foot (3773720218977013 ) Other hammer toe(s) (acquired), right foot (M20.41) Active confirmed Response to treatment, Improvemen t Problem Acquired hammer toe of left foot (3114299693867009 ) Other hammer toe(s) (acquired), left foot (M20.42) Active confirmed Response to treatment, Improvemen t Problem 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 I (229340448) Type 1 diabetes mellitus with diabetic polyneuropathy (E10.42) Active confirmed Problem 4882683 Right foot drop (M21.371) Active confirmed Vital Signs Blood pressure diastolic 75 mm Hg 05/28/2024 Height 5 ft 8 in in 05/28/2024 Blood pressure systolic 118 mm Hg 05/28/2024 Weight 125 lbs 05/28/2024 BMI 19 kg/m2 05/28/2024 Procedures Procedure Date Ordered Date Performed Result Body Sit e 07447-RKYXJRL NAIL, 6 OR MORE 08/29/2023 N/A 79006-JVLO SKIN LESIONS, OVER 4 08/29/2023 N/A 40260-SUGFZOT NAIL, 6 OR MORE 11/14/2023 N/A 71493-Rpcythgz Plate 11/14/2023 N/A 77711-RZZE SKIN LESIONS, OVER 4 11/14/2023 N/A 35480-VSYOJPE NAIL, 6 OR MORE 01/30/2024 N/A 15354-CUNG SKIN LESIONS, OVER 4 01/30/2024 N/A 83832-TYFSPWE NAIL, 6 OR MORE 05/28/2024 N/A 61456-HCLG SKIN LESIONS, OVER 4 05/28/2024 N/A Encounters Encounter Location Date Provider Diagnosis [address] [address] 08/29/2023 Rubén Arshad Type 1 diabetes mellitus with diabetic polyneuropathy E10.42 ; Onychomycosis B35.1 and Xerosis of skin L85.[address] [address] 11/14/2023 Rubén Arshad Type 1 diabetes mellitus with diabetic polyneuropathy E10.42 ; Onychomycosis B35.1 ; Xerosis of skin L85.3 and Ingrown nail L60.[address] [address] 01/30/2024 Rubénindra Arshad Type 1 diabetes mellitus with diabetic polyneuropathy E10.42 ; Tinea unguium B35.1 ; Other hammer toe(s) (acquired), right foot M20.41 and Other hammer toe(s) (acquired), left foot M20.[address] [address] 05/28/2024 Rubén Arshad Type 1 diabetes mellitus with diabetic polyneuropathy E10.42 ; Tinea unguium B35.1 ; Other hammer toe(s) (acquired), right foot M20.41 and Other hammer toe(s) (acquired), left foot M20.42 [facility] [address] [address] 07/31/2023 Rubén Arshad Assessments Encounter Date Diagnosis (ICD Code) Assessment Notes Treatment Notes Treatment Clinical Notes Section Notes 08/29/2023 Type 1 diabetes mellitus with diabetic polyneuropathy (ICD-10 - E10.42) 08/29/2023 Onychomycosis (ICD-10 - B35.1) 11/14/2023 Type 1 diabetes mellitus with diabetic polyneuropathy (ICD-10 - E10.42) 11/14/2023 Onychomycosis (ICD-10 - B35.1) 01/30/2024 Type 1 diabetes mellitus with diabetic polyneuropathy (ICD-10 - E10.42) 01/30/2024 Tinea unguium (ICD-10 - B35.1) 05/28/2024 Type 1 diabetes mellitus with diabetic polyneuropathy (ICD-10 - E10.42) 05/28/2024 Tinea unguium (ICD-10 - B35.1) 11/14/2023 Xerosis of skin (ICD-10 - L85.3) Made recommendations for extended moisture applicator 05/28/2024 Other hammer toe(s) (acquired), right foot (ICD-10 - M20.41) Response to treatment,Improveme nt 01/30/2024 Other hammer toe(s) (acquired), right foot (ICD-10 - M20.41) Patient Educated with: DIABETIC FOOT CARE INSTRUCTIONS. pdf (DIABETIC FOOT CARE INSTRUCTIONS. pdf) 08/29/2023 Xerosis of skin (ICD-10 - L85.3) 01/30/2024 Other hammer toe(s) (acquired), left foot (ICD-10 - M20.42) 11/14/2023 Ingrown nail (ICD-10 - L60.0) 05/28/2024 Other hammer toe(s) (acquired), left foot (ICD-10 - M20.42) Response to treatment,Improveme nt Plan Of Treatment Pending Test Test Name Order Date 80782-GYDZOHO NAIL, 6 OR MORE 02/23/2021 51342-CLRLBJL NAIL, 6 OR MORE 05/25/2021 21234-WYUSJMH NAIL, 6 OR MORE 08/03/2021 05911-TXRGQGF NAIL, 6 OR MORE 10/19/2021 85534-FBXBTAS NAIL, 6 OR MORE 01/04/2022 58790-HJFVTEW NAIL, 6 OR MORE 08/19/2022 71100-MTVMOCI NAIL, 6 OR MORE 11/01/2022 13605-AYWNZYH NAIL, 6 OR MORE 01/13/2023 41067-HVRPSQU NAIL, 6 OR MORE 08/29/2023 47693-MGCGADZ NAIL, 6 OR MORE 11/14/2023 28822-SBUHRCM NAIL, 6 OR MORE 01/30/2024 84342-KCUNLEQ NAIL, 6 OR MORE 05/28/2024 98050-LUHYTZC NAIL, 1-5 03/17/2020 11913-VYABFLK NAIL, 1-5 01/07/2020 11276-QJXKPMH NAIL, 1-5 01/17/2017 83833-HFWRQRT NAIL, 1-5 04/18/2017 04751-SPQHVLA NAIL, 1-5 07/25/2017 82685-WVEWPAS NAIL, 1-5 10/24/2017 30031-OAPBEVI NAIL, 1-5 01/23/2018 11500-ZHTDRCV NAIL, 1-5 05/11/2018 79658-KNJUGAQ NAIL, 1-5 08/10/2018 03346-ZOEZEAM NAIL, 1-5 10/30/2018 20239-AMIQBVY NAIL, 1-5 02/05/2019 63027-XYLFLXO NAIL, 1-5 05/21/2019 80602-YONHQRX NAIL, 1-5 07/23/2019 89612-BXMXYYG NAIL, 1-5 10/01/2019 31116-Ncnifylb Plate 05/11/2018 33254-Dwyoiebb Plate 01/23/2018 30432-Ehlxcfwk Plate 11/14/2023 79446-Gtsmbxpw Plate Each Additional 50229-CETQ SKIN LESIONS, OVER 4 05/11/19 19 19308-FQXS SKIN LESIONS, OVER 4 08/11/19 00204-WPVO SKIN LESIONS, OVER 4 10/31/19 19 58081-YSZC SKIN LESIONS, OVER 4 07/23/19 20 16466-XGJS SKIN LESIONS, OVER 4 02/06/20 19 91364-WOCX SKIN LESIONS, OVER 4 05/21/19 20 39921-KGPB SKIN LESIONS, OVER 4 03/17/20 77860-BPSL SKIN LESIONS, OVER 4 11/14/19 22145-JXTX SKIN LESIONS, OVER 4 05/28/19 25 75861-OXZE SKIN LESIONS, OVER 4 01/30/20 24 97187-MZFC SKIN LESIONS, OVER 4 08/29/19 24 28402-RTRR SKIN LESIONS, OVER 4 01/14/20 23 83282-PUOP SKIN LESIONS, OVER 4 11/02/19 23 75250-BAWS SKIN LESIONS, OVER 4 08/20/19 63743-QEIU SKIN LESIONS, OVER 4 10/01/19 20 17568-OWWD SKIN LESIONS, OVER 4 01/07/20 20 84661-JGLC SKIN LESIONS, OVER 4 02/24/20 21 26069-IBON SKIN LESIONS, OVER 4 01/05/20 22 90184-EWLY SKIN LESIONS, OVER 4 10/20/19 51320-LYPD SKIN LESIONS, OVER 4 08/04/19 22 89997-AHFU SKIN LESIONS, OVER 4 05/25/19 22 32058-GJXQ SKIN LESIONS, 2 TO 4 01/24/20 18 51694-ZCXK SKIN LESIONS, 2 TO 4 07/26/19 18 12704-FQSU SKIN LESIONS, 2 TO 4 10/25/19 18 86814-NPNL SKIN LESIONS, 2 TO 4 01/18/20 17 24721-QPMF SKIN LESIONS, 2 TO 4 04/18/20 17 D5383-EVNXEWJU DYSTROPHIC NAILS ANY # P6240-AHKIOZFZ DYSTROPHIC NAILS ANY # O5777-ESOOBRND DYSTROPHIC NAILS ANY # Q5504-YRGJMQRV DYSTROPHIC NAILS ANY # P1678-JWOQUSXJ DYSTROPHIC NAILS ANY # X0405-IDYHSCYV DYSTROPHIC NAILS ANY # Y8422-FSMRJZIX DYSTROPHIC NAILS ANY # Q6515-PKCWNWNF DYSTROPHIC NAILS ANY # G2622-XYYASTBX DYSTROPHIC NAILS ANY # C9913-IMENNQZW DYSTROPHIC NAILS ANY # L8237-XBWFYCPG DYSTROPHIC NAILS ANY # F4808-NWHAYEUI DYSTROPHIC NAILS ANY # F7825-JCOCHMNA DYSTROPHIC NAILS ANY # Q1200-JIEQOWSB DYSTROPHIC NAILS ANY # Next Appt Details Provider Name:Rubén Arshad , 08/30/2024 12:30:00 PM, [address] [place], [address], Insurance Providers Payer Name Payer Address Payer Phone Subscriber Number Group Number Insured Name Patient Relationship to Insured Coverage Start Date Coverage End Date Medicare [employer] [address] [place] [address] [id number] Mati Barton Self - patient is the insured 3 [facility] [address] [place] [address] [id number] Mati Barton Self - patient is the insured 1 Medical (General) History Medical History History ICD Code Arthritis Back,Hip,and Knee pain type II diabetes High blood pressure Numbness Measles Mumps Chicken pox Joint implants/screws drop foot - Right Surgical History Surgery Date(Month/Year) knee surgery, left eye surgery rotator cuff tear repair 12/19/2018 back stimulator surgery 09/22/21
[2024-07-05] MEDS: Lidocaine HCl 1 % MPF 5 ML VIAL 10 ML SUBCUT (00:48)
--- NOTE | 2024-07-05 01:42 | ED_ITS ---
HPI - Extremity Problem General Chief complaint: Extremity Injury, Upper Stated complaint: left hand laceration Time Seen by Provider: 07/05/24 00:34 Source: patient and family ( granddaughter) Mode of arrival: ambulatory Limitations: no limitations History of Present Illness ED Provider: DR. Gilmore HPI Narrative: a 74-year-old male right-handed came in with multiple finger' tips laceration ( index, middle, and ring) after using table so at home. patient is only taking aspirin declined using any anticoagulation. Unknown tetanus immunization. Granddaughter applied pressure dressing to his left hand and brought him to the hospital. Related Data Home Medications ?Medication ?Instructions ?Recorded ?Confirmed amlodipine 5 mg tablet 1 tab PO DAILY 04/09/20 04/15/20 atorvastatin 80 mg tablet 1 tab PO DAILY 04/09/20 04/15/20 brimonidine 0.2 %-timolol 0.5 % 1 drp BID 04/09/20 04/15/20 eye drops (Combigan) fenofibrate 54 mg tablet 1 tab PO BEDTIME 04/09/20 04/15/20 furosemide 40 mg tablet (Lasix) 40 mg PO BID PRN Edema 04/09/20 04/15/20 losartan 100 mg tablet 1 tab PO DAILY 04/09/20 04/15/20 nitroglycerin 0.4 mg sublingual 1 tab sublingual NEEDED PRN 04/09/20 04/15/20 tablet Chest Pain omeprazole 20 mg capsule,delayed 20 mg PO DAILY 04/09/20 04/15/20 release ropinirole 3 mg tablet 1 tab PO BEDTIME PRN Restless 04/09/20 04/15/20 Leg(S) aspirin 81 mg tablet,delayed 81 mg PO DAILY 08/08/23 release bimatoprost 0.03 % drops with 1 drp topical BEDTIME 08/08/23 applicator, eyelash base carboxymethylcellulose sodium 0.5 1 drp ophthalmic (eye) QID 08/08/23 % eye drops in a dropperette cyclosporine 0.05 % eye drops 1 drp ophthalmic (eye) BID 08/08/23 divalproex 500 mg tablet,delayed 500 mg PO DAILY 08/08/23 release empagliflozin 25 mg tablet 12.5 mg PO DAILY 08/08/23 insulin glargine-yfgn 100 unit/mL 31 unit subcut DAILY 08/08/23 (3 mL) subcutaneous pen metoprolol succinate 200 mg 200 mg PO DAILY 08/08/23 tablet,extended release 24 hr semaglutide 1 mg/dose (4 mg/3 mL) 1 mg subcut QWEEK 08/08/23 subcutaneous pen injector timolol 0.5 % eye drops 1 drp ophthalmic (eye) BID 08/08/23 trazodone 100 mg tablet 50 mg PO BEDTIME PRN 08/08/23 ubrogepant 100 mg tablet mg PO PRN 08/08/23 vortioxetine 20 mg tablet 20 mg PO DAILY 08/08/23 Previous Rx's ?Medication ?Instructions ?Recorded doxycycline hyclate 100 mg tablet 100 mg PO BID #20 tabs 07/05/24 oxycodone 5 mg tablet 5 mg PO Q8H PRN pain #10 tabs 07/05/24 Allergies Allergy/AdvReac Type Severity Reaction Status Date / Time gabapentin [GABAPENTIN] Allergy Severe SHORTNESS Verified 07/04/24 20:18 OF BREATH naproxen [NAPROXEN] Allergy Unknown KIDNEY Verified 07/04/24 20:18 SHUT DOWN TO ALL NAPROXEN PRODUCTS Sulfa (Sulfonamide Allergy Unknown HIVES Verified 07/04/24 20:18 Antibiotics) [SULFA (SULFONAMIDE ANTIBIOTICS)] sulfur Allergy Unknown unknown Verified 07/04/24 20:18 anti-inflammatory Allergy Unknown unknown Uncoded 07/04/24 20:18 sulfa Allergy Unknown unknown Uncoded 07/04/24 20:18 Review of Systems 2 Review of Systems: All other systems are reviewed and are negative Constitutional: Reports as per HPI and Reports no additional constitutional complaints Eyes: Reports as per HPI and Reports no additional eye complaints Reports system reviewed and no additional complaints, except as documented Cardiovascular: Reports as per HPI and Reports no additional cardiovascular complaints Respiratory: Reports as per HPI and Reports no additional respiratory complaints Gastrointestinal: Reports as per HPI and Reports no additional gastrointestinal complaints Genitourinary: Reports no additional female genitourinary complaints Musculoskeletal: Reports no additional musculoskeletal complaints Skin/Breast: Reports system reviewed and no additional complaints, except as docu Psychiatric: Reports no additional psychiatric complaints Endocrine: Reports no additional endocrine complaints Hematologic/Lymphatic: Reports no additional hematologic/lymphatic complaints Allergic/Immunologic: Reports no additional allergic/immunologic complaints Reports system reviewed and no additional complaints, except as documented and Reports Abnormal speech present [facility] Past Medical History Medical History Pes equinus, acquired Complex regional pain syndrome i of left lower limb Osteoarthritis of right knee Chronic, continuous use of opioids PTSD (post-traumatic stress disorder) Anxiety and depression Peripheral neuropathy Arthritis Back pain Diabetes GERD (gastroesophageal reflux disease) COPD (chronic obstructive pulmonary disease) Sleep apnea On beta sean at home Elevated cholesterol CHF (congestive heart failure) Myocardial infarction CAD (coronary artery disease) HTN (hypertension) Acute medial meniscus tear of right knee Internal derangement of right knee Internal derangement of left knee Degenerative arthritis of knee, bilateral Surgical History History of back surgery History of cardiac cath Hx of sinus surgery Hx of eye surgery History of penile implant History of open reduction and internal fixation (ORIF) procedure Hx of arthroscopy of left knee Hx of repair of left rotator cuff Hx of bariatric surgery Social History Social History Patient Tobacco Use Status: Former Tobacco user Advance Directives: No Advance Directives Information Provided: Yes Do you have a plan to hurt others: No Plan Current occupational status: retired 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 Physical Exam 2 Vital Signs: Vital Signs: Last Vital Signs Temp 98.0 F 07/04/24 20:10 Pulse 67 07/04/24 20:10 Resp 16 07/04/24 20:10 BP 177/65 H 07/04/24 20:10 Pulse Ox 99 07/04/24 20:10 O2 Del Method Room Air 07/04/24 20:10 BMI result Body Mass Index 30.8 Vital signs have been reviewed and appear to be correct. Blood pressure elevated. Heart rate normal. Respiratory rate normal. Temperature normal. Oxygen saturation normal. Appearance: Alert. Oriented X3. No acute distress. Head: Normal external exam. Normocephalic. Atraumatic. No Sy signs noted. No raccoon eyes noted Eyes: PERRLA. EOMI. Conjunctiva and sclera normal. Eyelids normal. ENT: TM's Normal. Pharynx normal. Uvula midline. Moist mucous membranes. No trismus noted. No drooling noted. No muffled voice noted. Neck: Normal inspection. Neck supple. FROM. No adenopathy. Thyroid Normal. No meningeal signs. No neck mass noted. CVS: Normal heart rate and rhythm. Heart sound normal. No murmurs noted. Pulses normal throughout. Respiratory: No respiratory distress. Painless inspiration. Breath sounds normal. No wheezes/rales/rhonchi noted. Chest nontender. No accessory muscle usage noted or decreased air movement noted. Abdomen: Soft and nontender. Bowel sounds normal in all 4 quadrants. No distention noted. No organomegaly noted. No visible injury noted. Back: No CVA tenderness. Full range of motion noted. Skin: Skin warm and dry. Normal skin color. Normal skin turgor. No rashes/lesions/lacerations noted. Extremities: No lower extremity edema. Extremities exhibit normal range of motion. Extremities nontender. Neuro: Oriented X 3. Cranial nerve exam: II-XII are grossly intact No motor deficit. No sensory deficit. Reflexes normal. Extrem: Hand/finger images: 1. Partial amputation and laceration involving nail bed for left index finger 2. partial amputation of the middle fin simon involving the nail bed. 3. Partial amputation of ring finger inv olving nail bed 4. partial amputation of the ring finge r 5. partial amputation of the ring finge r involving nail bed. 6. Partial amputation of the index fin simon involving nail bed. Course Reevaluation(s) Reevaluation #1: Complicated left hand multiple fingertips laceration almost partial amputation to the tip of the 3 fingers (index, middle, and ring fingers ) with distal phalanx fracture, will start the patient on doxycycline, temporary laceration repair was done in the emergency department until he sees Dr. Villalta ( hand surgery Service) tomorrow case was discussed with [facility] who agreed on the plan. Will discharge the patient on doxycycline and update his tetanus shot. Time: 02:01 Medications Administered Discontinued Medications Generic Name Dose Route Start Last Admin Trade Name Freq PRN Reason Stop Dose Admin Lidocaine HCl 10 ml 07/05/24 00:42 07/05/24 00:48 Lidocaine Hcl 1 % Mpf 5 Ml Vial SUBCUT 07/05/24 00:43 10 ml ONCE ONE Administration Medical Decision Making Differential Diagnosis Differential Diagnoses: The differential diagnosis associated with the presentation includes ( left Finger tip laceration, left finger tib partial amputation, phalangeal fracture.) Admission/Observation Consideration of admission/observation: Escalation of care including admission/observation considered Consult Healthcare Provider Management of the patient was discussed with: Acid Treater (Diaz Wood) Independent Interpretation I performed an independent interpretation of an: Plain X-Ray ( Left hand x- ray:1. Fractures of the 2nd, 3rd and 4th distal phalanges with soft tissue lacerations.) Radiology Impression Discussion of test interpretation with radiology: I have reviewed the radiologist's reading. Procedures Laceration Laceration 1: Site: hand Side (If applicable): left Size (cm): 4 Description: flap, irregular and other (Distal phalanx almost circumferential ) Local Anesthetic: lidocaine 1% Amount of anesthesia used (mL): 3 Pre-repair: wound explored Skin layer closed with: nylon Size (cm): 5-0 Number of sutures: 10 Technique: running Laceration 2: Site: hand ( ring finger) Side (If applicable): left Size (cm): 4 Description: linear and irregular Depth: simple, single layer Local Anesthetic: lidocaine 1% Amount of anesthesia used (mL): 5 Pre-repair: wound explored and irrigated extensively Skin layer closed with: nylon Size (cm): 5-0 Number of sutures: 5 Technique: simple, interrupted Discharge Plan Discharge Clinical Impression: Laceration of multiple sites of left hand and fingers, Partial traumatic amputation of finger through phalanx Patient Disposition: Home, Self-Care Instructions: Finger Amputation (ED), Finger Laceration (ED) Prescriptions: New doxycycline hyclate 100 mg tablet 100 mg PO BID Qty: 20 0RF oxycodone 5 mg tablet 5 mg PO Q8H PRN (Reason: pain) Qty: 10 0RF Rx Instructions: Partial Fill upon patient request. No Action atorvastatin 80 mg tablet 1 tab PO DAILY ropinirole 3 mg tablet 1 tab PO BEDTIME PRN (Reason: Restless Leg(S)) amlodipine 5 mg tablet 1 tab PO DAILY nitroglycerin 0.4 mg tablet, sublingual 1 tab sublingual NEEDED PRN (Reason: Chest Pain) omeprazole 20 mg capsule,delayed release(DR/EC) 20 mg PO DAILY losartan 100 mg tablet 1 tab PO DAILY Combigan 0.2-0.5 % drops 1 drp BID fenofibrate 54 mg tablet 1 tab PO BEDTIME furosemide [Lasix] 40 mg Tablet 40 mg PO BID PRN (Reason: Edema) vortioxetine 20 mg tablet 20 mg PO DAILY bimatoprost 0.03 % drops with applicator 1 drp topical BEDTIME timolol 0.5 % drops 1 drp ophthalmic (eye) BID divalproex 500 mg tablet,delayed release (DR/EC) 500 mg PO DAILY carboxymethylcellulose sodium 0.5 % dropperette 1 drp ophthalmic (eye) QID metoprolol succinate 200 mg tablet extended release 24 hr 200 mg PO DAILY insulin glargine-yfgn 100 unit/mL (3 mL) insulin pen 31 unit subcut DAILY empagliflozin 25 mg tablet 12.5 mg PO DAILY semaglutide 1 mg/dose (4 mg/3 mL) pen injector 1 mg subcut QWEEK cyclosporine 0.05 % drops 1 drp ophthalmic (eye) BID trazodone 100 mg tablet 50 mg PO BEDTIME PRN ubrogepant 100 mg tablet PO PRN aspirin 81 mg tablet,delayed release (DR/EC) 81 mg PO DAILY Referrals: Anup Chacon MD [Primary Care Provider] - Barbara Villalta MD [Physician] - Print Language: Romanian
--- NOTE | 2024-07-05 02:14 | MHC.EDTECH ---
Per provider wrap injured fingers with gauze and bacitracin. Pt fingers and hand cleaned of dried blood. bacitracin with a nonadherent dressing placed on tips of fingers, Roll gauze wrapped around each finger to secure nonadherent pad to each finger.
[2024-07-05] MEDS: Diphth,Pertus(ACell),Tet Adult 0.5 ML SYRINGE IM (02:15)
[2024-07-05] MEDS: Bacitracin Oint 0.9 GM PACKET 1 APPL TOPICAL (02:16)
[2024-07-05] MEDS: Doxycycline Monohydrate 100 MG CAPSULE PO (02:16)
--- NOTE | 2024-07-05 02:19 | PC.NURSE ---
pt medicated according to dee fingers wrapped and dressed cms intact
[2024-07-05 08:59] VITALS: BP 177/65; PULSE 67; RESP 16; TEMP -17.7; TEMP 0; O2SAT 99
== END 2024-07-05 02:30 | disposition home or self-care (01) ==
PROVIDERS: Emergency Provider Emergency Medicine; PCP Internal Medicine
DX: S61.311A Laceration without foreign body of left index finger with damage to nail, initial encounter (principal); S62.631B Displaced fracture of distal phalanx of left index finger, initial encounter for open fracture; S61.213A Laceration without foreign body of left middle finger without damage to nail, initial encounter; S62.633B Displaced fracture of distal phalanx of left middle finger, initial encounter for open fracture; S61.315A Laceration without foreign body of left ring finger with damage to nail, initial encounter; S62.635B Displaced fracture of distal phalanx of left ring finger, initial encounter for open fracture; W27.0XXA Contact with workbench tool, initial encounter; Y93.89 Activity, other specified; Y92.019 Unspecified place in single-family (private) house as the place of occurrence of the external cause; Y99.9 Unspecified external cause status; Z23 Encounter for immunization
CPT/HCPCS: 12004; 73110; 73130; 90471; 90715; 99282; 99284; J2003

== ENCOUNTER → 2024-07-04 20:12 | Outpatient (BNV) | payer MEDICARE, BC, SELFPAY | PROVIDERS: PCP Internal Medicine; Visit Provider Radiology Diagnostic Radiology | DX: S62.631A Displaced fracture of distal phalanx of left index finger, initial encounter for closed fracture (principal); S62.633A Displaced fracture of distal phalanx of left middle finger, initial encounter for closed fracture; S62.635A Displaced fracture of distal phalanx of left ring finger, initial encounter for closed fracture | CPT/HCPCS: 73110; 73130 ==

== ENCOUNTER 2024-07-09 14:37 | Outpatient (AMB) | payer MEDICARE, BC, SELFPAY ==
[2024-07-09 15:03] VITALS: BMI 30.7
--- NOTE | 2024-07-09 15:03 | MHC.OFFVIS ---
Vital Signs 07/09/24 15:03 Height 5 ft 8 in Weight 202 lb BMI 30.7 Intake Visit Reasons: FC-LT Finger tip laceration,tib partial amputation Intake Note: Mati 74 yr old right hand dominant male presents today with is grand daughter Etelvina, for a new problem visit for his left index , middle and ring finger. State on 07/04/24 while working with a table saw, his fingers went towards the blade. Seen in ED C same day where he was cleaned up, sutured and wrapped up. Currently states he has no pain. Patient is a diabetic. Accompanied by: grand daughter Allergies gabapentin [GABAPENTIN] Allergy (Severe, Verified 07/09/24 15:12) SHORTNESS OF BREATH naproxen [NAPROXEN] Allergy (Unknown, Verified 07/09/24 15:12) KIDNEY SHUT DOWN TO ALL NAPROXEN PRODUCTS Sulfa (Sulfonamide Antibiotics) [SULFA (SULFONAMIDE ANTIBIOTICS)] Allergy (Unknown, Verified 07/09/24 15:12) HIVES sulfur Allergy (Unknown, Verified 07/09/24 15:12) unknown anti-inflammatory Allergy (Unknown, Uncoded 07/09/24 15:12) unknown sulfa Allergy (Unknown, Uncoded 07/09/24 15:12) unknown HPI HPI FC-LT Finger tip laceration,tib partial amputation: Details: Juan Carlos is a 74 year old right hand dominant Diabetic man who presents for a partial amputation, nailbed injury, and laceration of his left index, middle, and ring fingers, from a tablesaw injury, DOI: 07/04/24. He was seen in the ED the same day where his fingers were sutured and he was discharged with SERA Benavides. He presents today saying he is doing well. He says his pain today is minimal. [facility] Medical History (Updated 07/09/24 @ 15:31 by Tera Carranza) Pes equinus, acquired Complex regional pain syndrome i of left lower limb Osteoarthritis of right knee Chronic, continuous use of opioids PTSD (post-traumatic stress disorder) Anxiety and depression Peripheral neuropathy Arthritis Back pain Diabetes GERD (gastroesophageal reflux disease) COPD (chronic obstructive pulmonary disease) Sleep apnea On beta sean at home Elevated cholesterol CHF (congestive heart failure) Myocardial infarction CAD (coronary artery disease) HTN (hypertension) Acute medial meniscus tear of right knee Internal derangement of right knee Internal derangement of left knee Degenerative arthritis of knee, bilateral Surgical History History of back surgery History of cardiac cath Hx of sinus surgery Hx of eye surgery History of penile implant History of open reduction and internal fixation (ORIF) procedure Hx of arthroscopy of left knee Hx of repair of left rotator cuff Hx of bariatric surgery Social History Patient Tobacco Use Status: Former Tobacco user Current occupational status: retired 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 Review of Systems Const All systems reviewed & are unremarkable except as noted in HPI and below Physical Exam Vital Signs: BMI result Body Mass Index 30.7 Const General: cooperative, healthy appearing and no acute distress Orientation/consciousness: patient oriented x3 HEENT Head: Yes normocephalic and Yes atraumatic Eyes EOM: EOMs intact bilaterally Resp Effort & Inspection: normal respiratory effort and able to speak in complete sentences Cardio Jugular venous distension: no JVD Skin General skin exam: turgor normal Rashes: no rashes Neuro General: patient oriented x3 Extrem Other: Evaluation of Left Upper Extremity: The patient is alert, oriented, and in no acute distress Neuro: Median, Ulnar, Radial nerves motor and sensory intact. Cap refill is brisk and sensation was intact to the tips of all injured digits ROM: With encouragement he can make a weak fist and extend all his digits Mild radial deviation of the tip of the ring finger. Middle and index finger alignment was satisfactory No malrotation seen General: Complex lacerations to the tips of the left index middle and ring fingers. These lacerations appear to involve at least part of the nail bed in each of these digits. Sutures in place in the index and middle fingers. Only some mild serosanguineous drainage. No erythema or evidence of infection at this time Radiographs: 3 views of the left hand were taken and viewed by me today in clinic. They show a distal phalanx fractures of the index, middle, and ring fingers. Psych Appearance: grossly normal Affect: normal affect Attitude: cooperative Office Procedures AMB Fracture Care Details: Open middle finger distal phalanx fracture Open ring finger distal phalanx fracture Open index finger distal phalanx fracture [id number] Fracture Billing Code: Fracture Billing Code Assessment & Plan Assessment & Plan (1) Fracture of distal phalanx of left index finger: Code(s): S62.631A - Displaced fracture of distal phalanx of left index finger, initial encounter for closed fracture Category: Medical (2) Fracture of distal phalanx of left middle finger: Code(s): S62.633A - Displaced fracture of distal phalanx of left middle finger, initial encounter for closed fracture Category: Medical (3) Fracture of distal phalanx of left ring finger: Code(s): S62.635A - Displaced fracture of distal phalanx of left ring finger, initial encounter for closed fracture Category: Medical (4) Laceration of left index finger with damage to nail: Code(s): S61.311A - Laceration without foreign body of left index finger with damage to nail, initial encounter Category: Medical (5) Laceration of left middle finger with damage to nail: Code(s): S61.313A - Laceration without foreign body of left middle finger with damage to nail, initial encounter Category: Medical (6) Laceration of left ring finger with damage to nail: Code(s): S61.315A - Laceration without foreign body of left ring finger with damage to nail, initial encounter Category: Medical (7) Stage 3b chronic kidney disease (CKD): Code(s): N18.32 - Chronic kidney disease, stage 3b Category: Medical (8) CAD (coronary artery disease): Code(s): I25.10 - Atherosclerotic heart disease of [place]iat[place] coronary artery without angina pectoris Category: Medical (9) Diabetes: Comment: IDDM FBS usually 125-130 Code(s): E11.9 - Type 2 diabetes mellitus without complications Category: Medical Plan Assessment & Plan: 1. Left index finger open distal phalanx fracture 2. Left index fingertip laceration, through the nailbed 3. Left middle finger open distal phalanx fracture 4. Left middle fingertip laceration, through the nailbed 5. Left ring finger open distal phalanx fracture 6. Left ring fingertip laceration, through the nailbed From a tablesaw injury, DOI: 07/04/24 I educated him about this condition These wounds were washed out and reapproximated with sutures in the emergency department. I discussed operative and non-operative treatment options I think we can manage this conservatively, and he is in agreement The wounds were cleaned and new dressings were applied. Finger splints were also applied to the distal aspect of all 3 injured digits. His radial aspect of the ring finger was splinted to correct the slight radial deviation He will continue to take his Abx as instructed I explained the signs and symptoms of infection, if the patient develops any new or worsening erythema, drainage, pain, or warmth they should contact the clinic or attend the ED. I educated him about proper wound care, including the use of half strength peroxide daily to clean his wounds, and Abx ointment use He can start washing the wounds in the shower by this weekend, but no immersion under water. I discussed activity modifications, he is to lift nothing heavier than a cellphone for the next 6 weeks He will work on gentle finger ROM exercises at home, he should focus on MCP & PIP joint motion He will follow up next week for a wound check. Anticipate another suture removal 2 weeks from now. Scribed for Barbara Villalta MD by Tera Carranza, medical review coordinator, on 07/09/24 at 3:40 PM, EST. Coding Level of Care Code New Pt Level 5 (01596) Diagnoses Fracture of distal phalanx of left index finger S62.631A Fracture of distal phalanx of left middle finger S62.633A Fracture of distal phalanx of left ring finger S62.635A Laceration of left index finger with damage to nail S61.311A Laceration of left middle finger with damage to nail S61.313A Laceration of left ring finger with damage to nail S61.315A Stage 3b chronic kidney disease (CKD) N18.32 CAD (coronary artery disease) I25.10 Diabetes E11.9 CPT Codes Fracture Care - Fracture Billing Code: Fracture Billing Code ([id number])
--- OUTSIDE RECORDS SUMMARY | 2024-07-09 18:30 | XMS_ITS ---
Author Organization [facility] [place] Address [address] [facility] [place] [address] Care Team Providers Care Radiology Ct Technologist Name Role Phone Anup Chacon MD Primary Care Provider Unavail able Rubén Arshad Unavailable [phone] Allergies Allergen (clinical drug ingredient) Drug/Non Drug [...] Ordered Date Performed Result Body Sit e 22719-ZRFQHTH NAIL, 6 OR MORE 05/28/2024 N/A 88998-CKCS SKIN LESIONS, OVER 4 05/28/2024 N/A Encounters Encounter Location Date Provider Diagnosis [facility] [place] [address] [place] [address] 05/28/2024 Rubén Arshad Type 1 diabetes mellitus [...] Treatment Pending Test Test Name Order Date 56611-WEANEFJ NAIL, 6 OR MORE 05/28/2024 78305-VJPI SKIN LESIONS, OVER 4 05/28/19 25 Next Appt Details Follow Up: prn, Reason: Provider Name:Rubén Arshad , 09/20/2024 01:30:00 PM, [address] [place] [address], [phone], Procedure Notes * Category Sub-Category Detail Notes [...] use of a nail nipper and/or dremel-type seater grinder, to a more viable healthy nail [...] to maintain effectiveness in symptomatic relief - 12985 Keratoma Treatment Parring or Cutting o f [...] instrumentation by the physician of record - 01727 Progress Notes * Mati HOPKINS JrDOB: (73 yo M)Acc No.[id number]:05/28/2024 Progress Note Patient:?Mati HOPKINS Jr Provider:?Rubén Arshad DPM :1950???Age:73 Y???Sex:Male Chetan e:05/28/2024 Address:[address] [place], [place] [address] Pcp:Anup Chacon MD Subjective: * Chief Complaints: [...] 1. ?Exercise: no. ?Marital status: . 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 ???Drug/Alcohol:?AUDIT-C (Standard)?Did you have a drink [...] use of a nail nipper and/or dremel-type seater grinder, to a more viable healthy nail [...] to maintain effectiveness in symptomatic relief - 15536.?Keratoma Treatment:?Parring or Cutting of Benign Hyperkeratotic Lesion(s)?(-56) [...] instrumentation by the physician of record - 43733.? * Procedure Codes:?73017 DEBRI DE NAIL, 6 OR MORE, Modifiers: XS 40674 TRIM SKIN LESIONS, OVER 4, Modifiers: XS [...] Provider:?Rubén Arshad DPM Date:?2024 Generated for Mich duckworth/Patrick/Oren on:?07/09/2024 06:29 PM EST History and Physical Notes * HPI [...]
--- OUTSIDE RECORDS SUMMARY | 2024-07-09 18:30 | XMS_ITS | Clinical Summary ---
Author Organization [facility] Address [address] [place] [address] Phone Care Team Providers Care Dredge Lever Operator Name Role Phone Anup Chacon MD Primary Care Provider [phone] Allergies Active Allergy Reactions Criticality Noted Date [...] 9.4 8.7 - 10.7 mg/dL eGFR Non-Afr Luxem[place] 36 Total Bilirubin 0.2 MG/DL ALT (SGPT) [...] to Health Maintenance Insurance [facility] MEDICARE [facility] MEDICARE Care Teams Dredge Lever Operator Relationship Specialty Start Date End Date Anup Chacon MD [address] [facility] - General 05/18/20
--- OUTSIDE RECORDS SUMMARY | 2024-07-09 18:30 | XMS_ITS | Patient Health Record ---
Author Organization [facility] [place] Address [address] [place] [address] Care Team Providers Care Policy Change Clerks Supervisor Name Role Phone Anup Chacon MD Primary Care Provider Unavail able Rubén Arshad Unavailable [phone] Allergies Allergen (clinical drug ingredient) Drug/Non Drug [...] Vaccine Route Administration Date Status Comme nts COVID-19 Pfizer BioNTech Vaccine Unknown 08/06/2020 Administered 1st 07/16/20 2nd 08/06/20 Influenza Unknown 03/03/2017 Administered Influenza Unknown 05/11/2018 Administered Influenza Unknown 03/18/2021 Administered Pneumococcal Unknown 01/28/2016 Administered Social History Tobacco Use: Social History Observation [...] Problem Acquired hammer toe of right foot ([id number] ) Other hammer toe(s) (acquired), right foot (M20.41) Active confirmed Response to treatment, Improvemen t Problem Acquired hammer toe of left foot (4668902543643546 ) Other hammer toe(s) (acquired), left foot (M20.42) Active confirmed Response to treatment, Improvemen t Problem 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 I (430711079) Type 1 diabetes mellitus with diabetic polyneuropathy (E10.42) Active confirmed Problem 3890707 Right foot drop (M21.371) Active confirmed Vital Signs Blood pressure diastolic 75 mm Hg 05/28/2024 Height 5 ft 8 in in 05/28/2024 Blood pressure systolic 118 mm Hg 05/28/2024 Weight 125 lbs 05/28/2024 BMI 19 kg/m2 05/28/2024 Procedures Procedure Date Ordered Date Performed Result Body Sit e 02765-LPOCVCZ NAIL, 6 OR MORE 08/29/2023 N/A 34000-BZGG SKIN LESIONS, OVER 4 08/29/2023 N/A 63989-HEINJLO NAIL, 6 OR MORE 11/14/2023 N/A 90106-Zhycuzzm Plate 11/14/2023 N/A 28867-ZNKI SKIN LESIONS, OVER 4 11/14/2023 N/A 54620-EQGHJXB NAIL, 6 OR MORE 01/30/2024 N/A 63316-CSCK SKIN LESIONS, OVER 4 01/30/2024 N/A 80855-POHYSHJ NAIL, 6 OR MORE 05/28/2024 N/A 19083-PTFZ SKIN LESIONS, OVER 4 05/28/2024 N/A Encounters Encounter Location Date Provider Diagnosis [address] [address] 08/29/2023 Rubén Arshad Type 1 diabetes mellitus with diabetic polyneuropathy E10.42 ; Onychomycosis B35.1 and Xerosis of skin L85.[address] [address] 11/14/2023 Rubén Arshad Type 1 diabetes mellitus with diabetic polyneuropathy E10.42 ; Onychomycosis B35.1 ; Xerosis of skin L85.3 and Ingrown nail L60.[address] [address] 01/30/2024 Rubénindra Arshad Type 1 diabetes mellitus with diabetic polyneuropathy E10.42 ; Tinea unguium B35.1 ; Other hammer toe(s) (acquired), right foot M20.41 and Other hammer toe(s) (acquired), left foot M20.[address] [address] 05/28/2024 Rubén Arshad Type 1 diabetes mellitus with diabetic polyneuropathy E10.42 ; Tinea unguium B35.1 ; Other hammer toe(s) (acquired), right foot M20.41 and Other hammer toe(s) (acquired), left foot M20.42 [facility] [address] [address] 07/31/2023 Rubén Arshad Assessments Encounter Date Diagnosis [...] Treatment Pending Test Test Name Order Date 47032-KWUQSNY NAIL, 6 OR MORE 02/23/2021 42369-MMXZAZX NAIL, 6 OR MORE 05/25/2021 33200-PNXNQEJ NAIL, 6 OR MORE 08/03/2021 58588-ZSMRTFG NAIL, 6 OR MORE 10/19/2021 57241-EQKTWTQ NAIL, 6 OR MORE 01/04/2022 49029-NKCYKKN NAIL, 6 OR MORE 08/19/2022 00183-FWHYSWF NAIL, 6 OR MORE 11/01/2022 35970-MXLONCL NAIL, 6 OR MORE 01/13/2023 42159-QIZQEWY NAIL, 6 OR MORE 08/29/2023 06397-OVYTNLL NAIL, 6 OR MORE 11/14/2023 97414-ZLWUDQA NAIL, 6 OR MORE 01/30/2024 67044-VRMUTVL NAIL, 6 OR MORE 05/28/2024 34962-UCCIGAS NAIL, 1-5 03/17/2020 64781-ZIDYHCY NAIL, 1-5 01/07/2020 26220-XRXICBS NAIL, 1-5 01/17/2017 75550-IKHKSMQ NAIL, 1-5 04/18/2017 75040-VBERSWE NAIL, 1-5 07/25/2017 99996-JHGPRWR NAIL, 1-5 10/24/2017 42028-ZSWVJUM NAIL, 1-5 01/23/2018 31331-CBNVENU NAIL, 1-5 05/11/2018 23182-IGAYOIN NAIL, 1-5 08/10/2018 49615-HZOPBFE NAIL, 1-5 10/30/2018 05168-UCEJQNC NAIL, 1-5 02/05/2019 32948-HESYNWK NAIL, 1-5 05/21/2019 91458-FVAVTMI NAIL, 1-5 07/23/2019 91217-WEGTWEW NAIL, 1-5 10/01/2019 63388-Ronqmzub Plate 05/11/2018 02798-Jxdajhtd Plate 01/23/2018 94813-Ostiugxl Plate 11/14/2023 52072-Etdeglut Plate Each Additional 91504-OVWD SKIN LESIONS, OVER 4 05/11/19 19 36898-VNPQ SKIN LESIONS, OVER 4 08/11/19 29017-MJOD SKIN LESIONS, OVER 4 10/31/19 19 84795-ACFQ SKIN LESIONS, OVER 4 07/23/19 20 12118-HKEF SKIN LESIONS, OVER 4 02/06/20 19 32573-FKHL SKIN LESIONS, OVER 4 05/21/19 20 00305-ZGSM SKIN LESIONS, OVER 4 03/17/20 83648-RLMS SKIN LESIONS, OVER 4 11/14/19 99042-GHRP SKIN LESIONS, OVER 4 05/28/19 25 61594-BBJE SKIN LESIONS, OVER 4 01/30/20 24 42616-YGNI SKIN LESIONS, OVER 4 08/29/19 24 43762-MKOA SKIN LESIONS, OVER 4 01/14/20 23 12544-DLPU SKIN LESIONS, OVER 4 11/02/19 23 21471-PUZH SKIN LESIONS, OVER 4 08/20/19 99506-ATFE SKIN LESIONS, OVER 4 10/01/19 20 51500-IITO SKIN LESIONS, OVER 4 01/07/20 20 44105-NLEA SKIN LESIONS, OVER 4 02/24/20 21 77963-TCGV SKIN LESIONS, OVER 4 01/05/20 22 59514-XIJP SKIN LESIONS, OVER 4 10/20/19 39457-JRXF SKIN LESIONS, OVER 4 08/04/19 22 29589-MWES SKIN LESIONS, OVER 4 05/25/19 22 93716-ETUC SKIN LESIONS, 2 TO 4 01/24/20 18 35796-SWVO SKIN LESIONS, 2 TO 4 07/26/19 18 64030-CBFN SKIN LESIONS, 2 TO 4 10/25/19 18 34141-GKPN SKIN LESIONS, 2 TO 4 01/18/20 17 10094-QMNF SKIN LESIONS, 2 TO 4 04/18/20 17 A3710-XHKQOFTJ DYSTROPHIC NAILS ANY # B4987-RCTPUOKP DYSTROPHIC NAILS ANY # N2576-GKWRSZYI DYSTROPHIC NAILS ANY # U4354-GLCIZNGK DYSTROPHIC NAILS ANY # S2671-TGCVRQXO DYSTROPHIC NAILS ANY # X5346-UJGENPAV DYSTROPHIC NAILS ANY # E3679-UHXVZPEU DYSTROPHIC NAILS ANY # J2661-ICGDHASG DYSTROPHIC NAILS ANY # K3933-QUJHRXOG DYSTROPHIC NAILS ANY # A4811-LRUMJCDM DYSTROPHIC NAILS ANY # A8369-RZQGFXRJ DYSTROPHIC NAILS ANY # N8956-SFFTCROR DYSTROPHIC NAILS ANY # H9314-NMQWBRQG DYSTROPHIC NAILS ANY # X7676-PFYCPMVZ DYSTROPHIC NAILS ANY # Next Appt Details Provider Name:Rubén Arshad , 09/20/2024 01:30:00 PM, [address] [place], [address], Insurance Providers Payer Name Payer Address Payer Phone Subscriber Number Group Number Insured Name Patient Relationship to Insured Coverage Start Date Coverage End Date Medicare National [employer] [address] [facility] [address] [id number] Mati Barton Self - patient is the insured 3 [facility] [address] [place] [address] [id number] Mati Barton Self - patient is the insured 1 Medical (General) History Medical History History ICD Code Arthritis Back,Hip,and Knee pain type II diabetes High blood pressure Numbness Measles Mumps Chicken pox Joint implants/screws drop foot - Right Surgical History Surgery Date(Month/Year) knee surgery, left eye surgery rotator cuff tear repair 12/19/2018 back stimulator surgery 09/22/21
--- OUTSIDE RECORDS SUMMARY | 2024-07-09 18:30 | XMS_ITS ---
Author Organization [facility] [place] Address [address] [facility] [address] Care Team Providers Care Glycerin Supervisor Name Role Phone Anup Chacon MD Primary Care Provider Unavail able Rubén Arshad Unavailable [phone] Allergies Allergen (clinical drug ingredient) Drug/Non Drug [...] Ordered Date Performed Result Body Sit e 68415-UBYLJLY NAIL, 6 OR MORE 01/30/2024 N/A 43239-QQKB SKIN LESIONS, OVER 4 01/30/2024 N/A Encounters Encounter Location Date Provider Diagnosis [facility] [address] [address] 01/30/2024 Rubén Arshad Type 1 diabetes mellitus [...] INSTRUCTIONS.pdf) Pending Test Test Name Order Date 54819-NTJHDWX NAIL, 6 OR MORE 01/30/2024 09585-GNNW SKIN LESIONS, OVER 4 01/30/20 Next Appt Details Follow Up: prn, Reason: Provider Name:Rubén Arshad , 09/20/2024 01:30:00 PM, [address] [place] [address], [phone], Procedure Notes * Category Sub-Category Detail Notes Debride Nail 6-10 Nail debridement Performance o f this nail treatment by a nonprofessional would put this patients foot and overall health at risk. Therefore, nail debridement was performed extensively to reduce/remove overall nail length, girth, thickness, subungual debris, and necrotic tissue, by manual and/or electrical means through the use of a nail nipper and/or dremel-type magnetic grinder operator, to a more viable healthy nail plate or bed tissue 6-10. Silver nitrate used for any petechial bleeding as necessary. Definitive antifungal treatment options have been reviewed and discussed with the patient. The patient chooses, no pharmaceutical tx - 00971 Keratoma Treatment Parring or Cutting o f Benign Hyperkeratotic Lesion(s) (-57) More than 4 Lesions - The Benign hyperkeratotic lesions, as described above were pared, and/or cut utilizing a sterile 15 blade, tissue nippers, and/or dremel - 38136 Progress Notes * Mati HOPKINSB: (73 yo M)Acc No.[id number]:01/30/2024 Progress Note Patient:?Mati HOPKINS Jr Provider:?Rubén Arshad DPM :1950???Age:73 Y???Sex:Male Chetan e:01/30/2024 [address] [facility] Pcp:Anup Chacon MD Subjective: * Chief Complaints: [...] 1. ?Exercise: no. ?Marital status: . 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 * Medications:?TakingAtorvasta tin Calcium 40 MG Tablet [...] use of a nail nipper and/or dremel-type magnetic grinder operator, to a more viable healthy nail plate or bed tissue 6-10. Silver nitrate used for any petechial bleeding as necessary. Definitive antifungal treatment options have been reviewed and discussed with the patient. The patient chooses, no pharmaceutical tx - 07105.?Keratoma Treatment:?Parring or Cutting of Benign Hyperkeratotic Lesion(s)?(-57) More than 4 Lesions - The Benign hyperkeratotic lesions, as described above were pared, and/or cut utilizing a sterile 15 blade, tissue nippers, and/or dremel - 76401.? * Procedure Codes:?15603 DEBRI DE NAIL, 6 OR MORE, Modifiers: XS 50101 TRIM SKIN LESIONS, OVER 4, Modifiers: XS [...] status: Completed true * Provider:?Rubén Arshad DPM Date:?2023 Generated for Mich duckworth/Patrick/Oren on:?07/09/2024 06:30 PM EST History and Physical Notes * [...]
--- OUTSIDE RECORDS SUMMARY | 2024-07-09 18:30 | XMS_ITS ---
Author Organization [facility] Address [address] [place] [address] Care Team Providers Care Golf Player Assistant Name Role Phone Anup Chacon MD Primary Care Provider Unavail Rubén López Unavailable [phone] Parrish Encounters Encounter Location Date Provider Diagnosis [address] [address] 05/03/2024 Rubén Arshad Plan Of Treatment Next Appt Details Provider Name:Rubén Arshda , 09/20/2024 01:30:00 PM, [address] [place] [address], [address], Progress Notes * Mati HOPKINS JrDOB: (74 yo M)Acc No.[id number]:05/03/2024 Progress Note Patient:?Mati HOPKINS Jr Provider:?Rubén Arshad DPM :1950???Age:73 Y???Sex:Male Chetan e:05/03/2024 Address:[address] [place] [address] Pcp:Anup Chacon MD Subjective: * Chief Complaints: * ???1. Dr Parrish. * Medical History:? Objective: * Vitals:? Assessment: Plan: * Treatment: * Images: * The named appointment provid er may or may not be the originator of this progress note, and it is not deemed complete until electronically signed by the appointment provider. Sign off status: Pending * Provider:Verna Arshad DPM Date:?2023 Generated for Mich duckworth/Patrick/Oren on:?07/09/2024 06:29 PM EST
== END 2024-07-09 16:20 | disposition home or self-care (01) ==
PROVIDERS: PCP Internal Medicine; Visit Provider Orthopaedic Surgery
DX: S62.631A Displaced fracture of distal phalanx of left index finger, initial encounter for closed fracture (principal); S62.633A Displaced fracture of distal phalanx of left middle finger, initial encounter for closed fracture; S62.635A Displaced fracture of distal phalanx of left ring finger, initial encounter for closed fracture; S61.311A Laceration without foreign body of left index finger with damage to nail, initial encounter; S61.313A Laceration without foreign body of left middle finger with damage to nail, initial encounter; S61.315A Laceration without foreign body of left ring finger with damage to nail, initial encounter; N18.32 Chronic kidney disease, stage 3b; I25.10 Atherosclerotic heart disease of native coronary artery without angina pectoris; E11.9 Type 2 diabetes mellitus without complications
CPT/HCPCS: 26750; 99204

== ENCOUNTER → 2024-07-09 14:37 | Outpatient (BNVA) | payer MEDICARE, BC, SELFPAY | PROVIDERS: PCP Internal Medicine; Visit Provider Orthopaedic Surgery | DX: S62.631A Displaced fracture of distal phalanx of left index finger, initial encounter for closed fracture (principal); S62.633A Displaced fracture of distal phalanx of left middle finger, initial encounter for closed fracture; S62.635A Displaced fracture of distal phalanx of left ring finger, initial encounter for closed fracture; S61.311A Laceration without foreign body of left index finger with damage to nail, initial encounter; S61.313A Laceration without foreign body of left middle finger with damage to nail, initial encounter; S61.315A Laceration without foreign body of left ring finger with damage to nail, initial encounter; E11.22 Type 2 diabetes mellitus with diabetic chronic kidney disease; N18.32 Chronic kidney disease, stage 3b; I25.10 Atherosclerotic heart disease of native coronary artery without angina pectoris | CPT/HCPCS: 99202 ==

== ENCOUNTER 2024-07-12 15:13 | Outpatient (REF) | payer MEDICARE, BC, SELFPAY ==
[2024-07-12 16:18] LABS: MANUAL DIFF FLAG NO
--- OUTSIDE RECORDS SUMMARY | 2024-07-12 17:18 | XMS_ITS | Clinical Summary ---
Author Organization [facility] Address [address] [place] [address] Phone Care Team Providers Care Audio Installer Name Role Phone Anup hCacon MD Primary Care Provider [phone] Allergies Active Allergy Reactions Criticality Noted Date [...] 9.4 8.7 - 10.7 mg/dL eGFR Non-Afr Jamaican 36 Total Bilirubin 0.2 MG/DL ALT (SGPT) [...] Most Recently Relevant to Health Maintenance Insurance [facility] MEDICARE [facility] MEDICARE Care Teams Audio Installer Relationship Specialty Start Date End Date Anup Chacon MD [address] [facility] - General 05/18/20
[2024-07-12 17:44] LABS: Anion Gap 13 (12-20); Blood Urea Nitrogen 22 mg/dL (9-16); Calcium 9.2 mg/dL (8.4-10.2); Carbon Dioxide 29 mmol/L (22-29); Chloride 105 mmol/L (96-108); Estimated Glomerular Filt Rate 39; Iron 71 mcg/dL (45-160); Parathyroid Hormone Intact 116.8 pg/mL (8.7-77.1); Percent Iron Saturation 25 % (15-50); Phosphorus 3.7 mg/dL (2.7-4.5); Potassium 4.6 mmol/L (3.3-5.1); Sodium 142 mmol/L (135-145); Total Iron Binding Capacity 281 mcg/dL (228-428); Unsaturated Iron Binding 210 ug/dL
[2024-07-12 17:59] LABS: Ferritin 243 ng/mL (20-250)
[2024-07-12 18:01] LABS: Basophils Percent Auto 0.5 % (0-2); Eosinophils Absolute Auto 0.4 X10*3/uL (0.0-0.4); Hematocrit 39.1 % (42.0-52.0); Hemoglobin 12.9 g/dl (14.0-18.0); Imm Gran Abs Auto 0.02 X10*3/uL (0.00-0.03); Imm Gran Pct Auto 0.3 % (0.0-0.4); Lymphocytes Absolute Auto 2.2 X10*3/uL (1.2-4.9); Lymphocytes Percent Auto 29.7 % (20-40); Mean Corpuscular Hemoglobin 30.7 pg (27.0-33.0); Mean Corpuscular Volume 93.1 fL (80.0-98.0); Mean Platelet Volume 9.8 fL (9.4-12.4); Monocytes Absolute Auto 0.5 X10*3/uL (0.1-1.2); Neutrophils Absolute Auto 4.3 x10*3/uL (2.0-8.3); Neutrophils Percent Auto 57.5 % (45-73); Platelet Count 241 X10*3/uL (160-400); Red Cell Distribution Width 12.4 % (11.0-16.0); White Blood Count 7.4 X10*3/uL (4.8-10.8)
== END 2024-07-12 15:14 | disposition home or self-care (01) ==
LOC: HO.LAB 15:13
PROVIDERS: PCP Internal Medicine; Visit Provider Internal Medicine Nephrology
DX: E11.21 Type 2 diabetes mellitus with diabetic nephropathy (principal); I10 Essential (primary) hypertension; N18.32 Chronic kidney disease, stage 3b
CPT/HCPCS: 36415; 80051; 82310; 82565; 82728; 83540; 83970; 84100; 84520; 85025; 99212

== ENCOUNTER 2024-07-12 15:13 | Outpatient (AMB) | payer MEDICARE, BC, SELFPAY ==
[2024-07-12 15:14] VITALS: BP 150/60; PULSE 69; O2SAT 96; BMI 30.9
--- NOTE | 2024-07-12 15:14 | HO.NEPHOV ---
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 Required: No Accompanied by: Self / Same As Patient Allergies gabapentin [GABAPENTIN] Allergy (Severe, Verified 07/12/24 15:17) SHORTNESS OF BREATH naproxen [NAPROXEN] Allergy (Unknown, Verified 07/12/24 15:17) KIDNEY SHUT DOWN TO ALL NAPROXEN PRODUCTS Sulfa (Sulfonamide Antibiotics) [SULFA (SULFONAMIDE ANTIBIOTICS)] Allergy (Unknown, Verified 07/12/24 15:17) HIVES sulfur Allergy (Unknown, Verified 07/12/24 15:17) unknown anti-inflammatory Allergy (Unknown, Uncoded 07/09/24 15:12) unknown sulfa Allergy (Unknown, Uncoded 07/09/24 15:12) unknown HPI Comments Details: Juan Carlos was seen in follow-up of his chronic kidney disease secondary to diabetic nephropathy. He is hypertensive with good blood pressure control on current medications. He has a right foot drop and is wearing a brace. He denies any chest pain, shortness of breath, paroxysmal nocturnal dyspnea, orthopnea, pedal edema, urinary symptoms, nausea, vomiting, diarrhea. He does not take any nonsteroidal anti-inflammatory medications and maintains good hydration. He has no orthostatic symptoms. He claims to be tolerating his medications including Jardiance [facility], [facility]1983 Medical History (Updated 07/09/24 @ 15:31 by Tera Carranza) Pes equinus, acquired Complex regional pain syndrome i of left lower limb Osteoarthritis of right knee Chronic, continuous use of opioids PTSD (post-traumatic stress disorder) Anxiety and depression Peripheral neuropathy Arthritis Back pain Diabetes GERD (gastroesophageal reflux disease) COPD (chronic obstructive pulmonary disease) Sleep apnea On beta sean at home Elevated cholesterol CHF (congestive heart failure) Myocardial infarction CAD (coronary artery disease) HTN (hypertension) Acute medial meniscus tear of right knee Internal derangement of right knee Internal derangement of left knee Degenerative arthritis of knee, bilateral Surgical History History of back surgery History of cardiac cath Hx of sinus surgery Hx of eye surgery History of penile implant History of open reduction and internal fixation (ORIF) procedure Hx of arthroscopy of left knee Hx of repair of left rotator cuff Hx of bariatric surgery Social History Patient Tobacco Use Status: Former Tobacco user Current occupational status: retired 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 Review of Systems Const All systems reviewed & are unremarkable except as noted in HPI and below Physical Exam Vital Signs: Last Vital Signs Pulse 69 07/12/24 15:14 BP 150/60 H 07/12/24 15:14 Pulse Ox 96 07/12/24 15:14 Oxygen Delivery Method Room Air 07/12/24 15:14 BMI result Body Mass Index 30.9 Const General: comfortable and no acute distress Orientation/consciousness: patient oriented x3 HEENT Head: Yes normocephalic Mouth: Normal oral and palatal mucosa present Eyes EOM: EOMs intact bilaterally Neck Neck: Yes supple Resp Auscultation: clear to auscultation bilaterally Cardio Jugular venous distension: no JVD Rate: regular rate GI Palpation (GI): Soft to palpation Auscultation: normal bowel sounds Neuro General: patient oriented x3 and moves all extremities Extrem General: Yes no pedal edema Results Reviewed Nephrology Results: Hgb 12.5 g/dl (14.0-18.0) L 09/05/23 WBC 7.1 X10*3/uL (4.8-10.8) 09/05/23 Plt Count 188 X10*3/uL (160-400) 09/05/23 Sodium 142 mmol/L (135-145) 12/22/23 Potassium 4.2 mmol/L (3.3-5.1) 12/22/23 Chloride 109 mmol/L (96-108) H 12/22/23 Carbon Dioxide 28 mmol/L (22-29) 12/22/23 BUN 18 mg/dL (9-16) H 12/22/23 Creatinine 1.86 mg/dL (0.5-1.4) H 12/22/23 Calcium 8.8 mg/dL (8.4-10.2) 09/05/23 Urine Protein >=1000 (4+) mg/dL (Neg-Trace) H 09/05/23 Assessment & Plan Assessment & Plan (1) HTN (hypertension): Code(s): I10 - Essential (primary) hypertension Category: Medical Qualifiers: Hypertension type: primary hypertension Qualified Code(s): I10 - Essential (primary) hypertension (2) Stage 3b chronic kidney disease (CKD): Code(s): N18.32 - Chronic kidney disease, stage 3b Category: Medical (3) Diabetic nephropathy: Code(s): E11.21 - Type 2 diabetes mellitus with diabetic nephropathy Category: Medical Qualifiers: Diabetes mellitus type: type 2 Qualified Code(s): E11.21 - Type 2 diabetes mellitus with diabetic nephropathy Plan Juan Carlos has stage III B CKD at baseline. He has diabetic nephropathy. He is tolerating angiotensin receptor sean and Jardiance. If his serum creatinine goes up, I shall back off on ARB. His volume status is optimal. His blood pressure is at goal. I encouraged him to maintain good hydration, keep his blood sugar at goal, avoid nonsteroidal anti-inflammatories and maintain his blood pressure on target. I did not make any medication changes today rather ordered follow-up blood work for continued management. All questions answered. Follow-up given. Orders: Orders Electrolytes Today E11.21 - Type 2 diabetes mellitus with diabetic nephropathy, I10 - Essential (primary) hypertension, N18.32 - Chronic kidney disease, stage 3b Parathyroid Hormone Intact 4 Months E11.21 - Type 2 diabetes mellitus with diabetic nephropathy, I10 - Essential (primary) hypertension, N18.32 - Chronic kidney disease, stage 3b Phosphorus 4 Months E11.21 - Type 2 diabetes mellitus with diabetic nephropathy, I10 - Essential (primary) hypertension, N18.32 - Chronic kidney disease, stage 3b Creatinine Today E11.21 - Type 2 diabetes mellitus with diabetic nephropathy, I10 - Essential (primary) hypertension, N18.32 - Chronic kidney disease, stage 3b Blood Urea Nitrogen Today E11.21 - Type 2 diabetes mellitus with diabetic nephropathy, I10 - Essential (primary) hypertension, N18.32 - Chronic kidney disease, stage 3b Complete Blood Count Auto Diff 4 Months E11.21 - Type 2 diabetes mellitus with diabetic nephropathy, I10 - Essential (primary) hypertension, N18.32 - Chronic kidney disease, stage 3b Ferritin 4 Months E11.21 - Type 2 diabetes mellitus with diabetic nephropathy, I10 - Essential (primary) hypertension, N18.32 - Chronic kidney disease, stage 3b IRON PROFILE 4 Months E11.21 - Type 2 diabetes mellitus with diabetic nephropathy, I10 - Essential (primary) hypertension, N18.32 - Chronic kidney disease, stage 3b Calcium 4 Months E11.21 - Type 2 diabetes mellitus with diabetic nephropathy, I10 - Essential (primary) hypertension, N18.32 - Chronic kidney disease, stage 3b Electrolytes 1 Day E11.21 - Type 2 diabetes mellitus with diabetic nephropathy, I10 - Essential (primary) hypertension, N18.32 - Chronic kidney disease, stage 3b Blood Urea Nitrogen 1 Day E11.21 - Type 2 diabetes mellitus with diabetic nephropathy, I10 - Essential (primary) hypertension, N18.32 - Chronic kidney disease, stage 3b Creatinine 1 Day E11.21 - Type 2 diabetes mellitus with diabetic nephropathy, I10 - Essential (primary) hypertension, N18.32 - Chronic kidney disease, stage 3b Coding Level of Care Code Est Pt Level 4 (79897) Diagnoses Primary hypertension I10 Hypertension type: primary hypertension Stage 3b chronic kidney disease (CKD) N18.32 Diabetic nephropathy associated with type 2 diabetes mellitus E11.21 Diabetes mellitus type: type 2
--- OUTSIDE RECORDS SUMMARY | 2024-07-12 16:47 | XMS_ITS ---
Author Organization [facility] Address [address] [place] [address] Care Team Providers Care Broomcorn Press Feeder Name Role Phone Anup Chacon MD Primary Care Provider Unavail Rubén López Unavailable [phone] Parrish Encounters Encounter Location Date Provider Diagnosis [address] [address] 05/03/2024 Rubén Arshad Plan Of Treatment Next Appt Details Provider Name:Rubén Arshad , 09/20/2024 01:30:00 PM, [address] [place] [address], [phone], Progress Notes * Mati HOPKINS JrDOB: (74 yo M)Acc No.[id number]:05/03/2024 Progress Note Patient:?Mati HOPKINS Jr Provider:?Rubén Arshad DPM :1950???Age:73 Y???Sex:Male Chetan e:05/03/2024 Address:[address] [place] [id number] Pcp:Anup Chacon MD Subjective: * Chief Complaints: [...] Arshad DPM Date:?2023 Generated for [place] duckworth/Patrick/Oren on:?07/12/2024 04:47 PM EST
--- OUTSIDE RECORDS SUMMARY | 2024-07-12 16:48 | XMS_ITS ---
Author Organization [facility] [place] Address [address] [place] [address] Care Team Providers Care Hose Seamer Name Role Phone Anup Chacon MD Primary Care Provider Unavail able Rubén Arshad Unavailable [phone] Allergies Allergen (clinical drug ingredient) Drug/Non Drug [...] Ordered Date Performed Result Body Sit e 54042-MRKJXYR NAIL, 6 OR MORE 01/30/2024 N/A 21464-DNKI SKIN LESIONS, OVER 4 01/30/2024 N/A Encounters Encounter Location Date Provider Diagnosis [facility] [address] [address] 01/30/2024 Rubén Arshad Type 1 diabetes mellitus [...] INSTRUCTIONS.pdf) Pending Test Test Name Order Date 90135-ESXIMTF NAIL, 6 OR MORE 01/30/2024 53903-GFJZ SKIN LESIONS, OVER 4 01/30/20 Next Appt Details Follow Up: prn, Reason: Provider Name:Rubén Arshad , 09/20/2024 01:30:00 PM, [address] [place] [address], [phone], Procedure Notes * Category Sub-Category Detail Notes Debride Nail 6-10 Nail debridement Performance o f this nail treatment by a nonprofessional would put this patients foot and overall health at risk. Therefore, nail debridement was performed extensively to reduce/remove overall nail length, girth, thickness, subungual debris, and necrotic tissue, by manual and/or electrical means through the use of a nail nipper and/or dremel-type cork grinder, to a more viable healthy nail plate or bed tissue 6-10. Silver nitrate used for any petechial bleeding as necessary. Definitive antifungal treatment options have been reviewed and discussed with the patient. The patient chooses, no pharmaceutical tx - 6[address]80 Keratoma Treatment Parring or Cutting o f Benign Hyperkeratotic Lesion(s) (-57) More than 4 Lesions - The Benign hyperkeratotic lesions, as described above were pared, and/or cut utilizing a sterile 15 blade, tissue nippers, and/or dremel - 51274 Progress Notes * Mati HOPKINSB: (73 yo M)Acc No.[id number]:01/30/2024 Progress Note Patient:?Mati HOPKINS Jr Provider:?Rubén Arshad DPM :1950???Age:73 Y???Sex:Male Chetan e:01/30/2024 [address] [facility] Pcp:Anup Chacon MD Subjective: * [...] 1. ?Exercise: no. ?Marital status: . 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 * Medications:?TakingAtorvasta tin Calcium 40 MG Tablet [...] use of a nail nipper and/or dremel-type cork grinder, to a more viable healthy nail plate or bed tissue 6-10. Silver nitrate used for any petechial bleeding as necessary. Definitive antifungal treatment options have been reviewed and discussed with the patient. The patient chooses, no pharmaceutical tx - 92150.?Keratoma Treatment:?Parring or Cutting of Benign Hyperkeratotic Lesion(s)?(-57) More than 4 Lesions - The Benign hyperkeratotic lesions, as described above were pared, and/or cut utilizing a sterile 15 blade, tissue nippers, and/or dremel - 29123.? * Procedure Codes:?52082 DEBRI DE NAIL, 6 OR MORE, Modifiers: XS 47406 TRIM SKIN LESIONS, OVER 4, Modifiers: XS [...] Provider:?Rubén Arshad DPM Date:?2023 Generated for [place] duckworth/Patrcik/Oren on:?07/12/2024 04:47 PM EST History and Physical Notes * [...]
--- OUTSIDE RECORDS SUMMARY | 2024-07-12 16:48 | XMS_ITS | Clinical Summary ---
Author Organization [facility] Address [address] [place] [address] Phone Care Team Providers Care Sales Support Associate Name Role Phone Anup Chacon MD Primary Care Provider [phone] Allergies Active Allergy Reactions Criticality Noted Date [...] 9.4 8.7 - 10.7 mg/dL eGFR Non-Afr Beninese 36 Total Bilirubin 0.2 MG/DL ALT (SGPT) [...] Most Recently Relevant to Health Maintenance Insurance [facility] MEDICARE [facility] MEDICARE Care Teams Sales Support Associate Relationship Specialty Start Date End Date Anup Chacon MD [address] [facility] - General 05/18/20
--- OUTSIDE RECORDS SUMMARY | 2024-07-12 16:48 | XMS_ITS ---
Author Organization [facility] [place] Address [address] [place] [address] Care Team Providers Care Auxiliary Power Equipment Operator Name Role Phone Anup Chacon MD Primary Care Provider Unavail able Rubén Arshad Unavailable [phone] Allergies Allergen (clinical drug ingredient) Drug/Non Drug [...] Ordered Date Performed Result Body Sit e 06568-KGKJCYT NAIL, 6 OR MORE 05/28/2024 N/A 22298-FGWE SKIN LESIONS, OVER 4 05/28/2024 N/A Encounters Encounter Location Date Provider Diagnosis [facility] [address] [place] [address] 05/28/2024 Rubén Arshad Type 1 diabetes mellitus [...] Treatment Pending Test Test Name Order Date 17555-ZBOGAIV NAIL, 6 OR MORE 05/28/2024 80506-CECT SKIN LESIONS, OVER 4 05/28/19 25 Next Appt Details Follow Up: prn, Reason: Provider Name:Rubén Arshad , 09/20/2024 01:30:00 PM, [address] [place] [address], [phone], Procedure Notes * Category Sub-Category Detail Notes [...] use of a nail nipper and/or dremel-type profile grinder, to a more viable healthy nail [...] to maintain effectiveness in symptomatic relief - 81349 Keratoma Treatment Parring or Cutting o f [...] instrumentation by the physician of record - 75505 Progress Notes * Mati HOPKINS JrDOB: (73 yo M)Acc No.[id number]:05/28/2024 Progress Note Patient:?Mati HOPKINS Jr Provider:?Rubén Arshad DPM :1950???Age:73 Y???Sex:Male Chetan e:05/28/2024 Address:[address] [place], [place] [address] Pcp:Anup Chacon MD Subjective: * Chief Complaints: [...] 1. ?Exercise: no. ?Marital status: . 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 ???Drug/Alcohol:?AUDIT-C (Standard)?Did you have a drink [...] use of a nail nipper and/or dremel-type profile grinder, to a more viable healthy nail [...] to maintain effectiveness in symptomatic relief - 70590.?Keratoma Treatment:?Parring or Cutting of Benign Hyperkeratotic Lesion(s)?(-56) [...] instrumentation by the physician of record - 55596.? * Procedure Codes:?46110 DEBRI DE NAIL, 6 OR MORE, Modifiers: XS 84795 TRIM SKIN LESIONS, OVER 4, Modifiers: XS [...] Arshad DPM Date:?2024 Generated for Mich duckworth/Patrick/Oren on:?07/12/2024 04:47 PM EST History and Physical [...]
--- OUTSIDE RECORDS SUMMARY | 2024-07-12 16:48 | XMS_ITS | Patient Health Record ---
Author Organization [facility] [place] Address [address] [place] [address] Care Team Providers Care Alodize Machine Helper Name Role Phone Anup Chacon MD Primary Care Provider Unavail able Rubén Arshad Unavailable [phone] Allergies Allergen (clinical drug ingredient) Drug/Non Drug [...] Problem Acquired hammer toe of right foot (1193492209772016 ) Other hammer toe(s) (acquired), right foot (M20.41) Active confirmed Response to treatment, Improvemen t Problem Acquired hammer toe of left foot (6288695655922892 ) Other hammer toe(s) (acquired), left foot (M20.42) Active confirmed Response to treatment, Improvemen t Problem 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 I (234928158) Type 1 diabetes mellitus with diabetic polyneuropathy (E10.42) Active confirmed Problem 5080793 Right foot drop (M21.371) Active confirmed Vital Signs Blood pressure diastolic 75 mm Hg 05/28/2024 Height 5 ft 8 in in 05/28/2024 Blood pressure systolic 118 mm Hg 05/28/2024 Weight 125 lbs 05/28/2024 BMI 19 kg/m2 05/28/2024 Procedures Procedure Date Ordered Date Performed Result Body Sit e 41178-VMYFPKP NAIL, 6 OR MORE 08/29/2023 N/A 18303-HBGG SKIN LESIONS, OVER 4 08/29/2023 N/A 32914-DARMJIM NAIL, 6 OR MORE 11/14/2023 N/A 23550-Slfhrbiz Plate 11/14/2023 N/A 35856-WSHO SKIN LESIONS, OVER 4 11/14/2023 N/A 65032-UIKXCTH NAIL, 6 OR MORE 01/30/2024 N/A 73376-SIUC SKIN LESIONS, OVER 4 01/30/2024 N/A 42792-LBFTQWL NAIL, 6 OR MORE 05/28/2024 N/A 73177-WISW SKIN LESIONS, OVER 4 05/28/2024 N/A Encounters Encounter Location Date Provider Diagnosis [address] [address] 08/29/2023 Rubén Arshad Type 1 diabetes mellitus with diabetic polyneuropathy E10.42 ; Onychomycosis B35.1 and Xerosis of skin L85.[address] [address] 11/14/2023 Rubén Arshad Type 1 diabetes mellitus with diabetic polyneuropathy E10.42 ; Onychomycosis B35.1 ; Xerosis of skin L85.3 and Ingrown nail L60.[address] [address] 01/30/2024 Rubénindra Arshad Type 1 diabetes mellitus with diabetic polyneuropathy E10.42 ; Tinea unguium B35.1 ; Other hammer toe(s) (acquired), right foot M20.41 and Other hammer toe(s) (acquired), left foot M20.[address] [address] 05/28/2024 Rubén Arshad Type 1 diabetes mellitus with diabetic polyneuropathy E10.42 ; Tinea unguium B35.1 ; Other hammer toe(s) (acquired), right foot M20.41 and Other hammer toe(s) (acquired), left foot M20.42 [facility] [address] [address] 07/31/2023 Rubén Arshad Assessments Encounter Date Diagnosis [...] Treatment Pending Test Test Name Order Date 63851-OEFNUSR NAIL, 6 OR MORE 02/23/2021 66137-JZDVQZJ NAIL, 6 OR MORE 05/25/2021 27274-TKSAOBB NAIL, 6 OR MORE 08/03/2021 84102-XJWVKIM NAIL, 6 OR MORE 10/19/2021 45717-RLICMBO NAIL, 6 OR MORE 01/04/2022 70028-GPOCUIV NAIL, 6 OR MORE 08/19/2022 00604-OVWJHHW NAIL, 6 OR MORE 11/01/2022 80808-HFYGKVI NAIL, 6 OR MORE 01/13/2023 44276-DAZOAEX NAIL, 6 OR MORE 08/29/2023 93550-MXWQTPW NAIL, 6 OR MORE 11/14/2023 50280-FHESNKE NAIL, 6 OR MORE 01/30/2024 51352-FWGBBNU NAIL, 6 OR MORE 05/28/2024 76666-ZRNCECF NAIL, 1-5 03/17/2020 61819-FVBJKAI NAIL, 1-5 01/07/2020 25113-POHXCKP NAIL, 1-5 01/17/2017 04121-YOZYMPA NAIL, 1-5 04/18/2017 66075-MHIIHFR NAIL, 1-5 07/25/2017 56803-GQUHTSJ NAIL, 1-5 10/24/2017 57850-JDVVZAX NAIL, 1-5 01/23/2018 10399-EYRKAOT NAIL, 1-5 05/11/2018 54507-DGLCNIB NAIL, 1-5 08/10/2018 23361-VDCFHPQ NAIL, 1-5 10/30/2018 09761-QYQRRFT NAIL, 1-5 02/05/2019 74083-CNPDQXC NAIL, 1-5 05/21/2019 62265-GMBEBHA NAIL, 1-5 07/23/2019 65356-EDYGPBF NAIL, 1-5 10/01/2019 20019-Ysnakokq Plate 05/11/2018 43311-Bbijmvnh Plate 01/23/2018 62015-Suzdoxlr Plate 11/14/2023 11962-Sbcfuejc Plate Each Additional 15389-BIYL SKIN LESIONS, OVER 4 05/11/19 19 29092-ERYT SKIN LESIONS, OVER 4 08/11/19 64646-RWIG SKIN LESIONS, OVER 4 10/31/19 19 36985-OZMT SKIN LESIONS, OVER 4 07/23/19 20 48099-TKBL SKIN LESIONS, OVER 4 02/06/20 19 60883-ECBY SKIN LESIONS, OVER 4 05/21/19 20 07225-RVVC SKIN LESIONS, OVER 4 03/17/20 01428-WQHG SKIN LESIONS, OVER 4 11/14/19 31978-BACR SKIN LESIONS, OVER 4 05/28/19 25 57452-TCGZ SKIN LESIONS, OVER 4 01/30/20 24 73598-XRHD SKIN LESIONS, OVER 4 08/29/19 24 43813-EKVO SKIN LESIONS, OVER 4 01/14/20 23 71371-KYOD SKIN LESIONS, OVER 4 11/02/19 23 39375-BWNM SKIN LESIONS, OVER 4 08/20/19 02013-UOFV SKIN LESIONS, OVER 4 10/01/19 20 74445-NBOD SKIN LESIONS, OVER 4 01/07/20 20 84607-CSMC SKIN LESIONS, OVER 4 02/24/20 21 93856-JUBG SKIN LESIONS, OVER 4 01/05/20 22 50603-FHKY SKIN LESIONS, OVER 4 10/20/19 65915-GOEH SKIN LESIONS, OVER 4 08/04/19 22 03792-ZSQE SKIN LESIONS, OVER 4 05/25/19 22 78306-NZVX SKIN LESIONS, 2 TO 4 01/24/20 18 06179-YGTX SKIN LESIONS, 2 TO 4 07/26/19 18 71507-MWZU SKIN LESIONS, 2 TO 4 10/25/19 18 13521-MFKU SKIN LESIONS, 2 TO 4 01/18/20 17 69241-RIWL SKIN LESIONS, 2 TO 4 04/18/20 17 Y2132-NRSUIBSJ DYSTROPHIC NAILS ANY # J1470-BFMMVUFN DYSTROPHIC NAILS ANY # A4177-ZQUPDUFT DYSTROPHIC NAILS ANY # Y6746-AISWVZKJ DYSTROPHIC NAILS ANY # K5191-CSJMBVAS DYSTROPHIC NAILS ANY # V8853-NJDAMWYM DYSTROPHIC NAILS ANY # G0389-RXFJHWIV DYSTROPHIC NAILS ANY # Z0478-VPZUUCQS DYSTROPHIC NAILS ANY # P2913-ZDHBZRHK DYSTROPHIC NAILS ANY # Y1230-SKLIIMZB DYSTROPHIC NAILS ANY # X9232-RXXKCAQO DYSTROPHIC NAILS ANY # L8050-NZJIKHOW DYSTROPHIC NAILS ANY # D2089-CEETVCLN DYSTROPHIC NAILS ANY # Q4042-VHILUMAV DYSTROPHIC NAILS ANY # Next Appt Details Provider Name:Rubén Arshad , 09/20/2024 01:30:00 PM, [address] [place], [address], Insurance Providers Payer Name Payer Address Payer Phone Subscriber Number Group Number Insured Name Patient Relationship to Insured Coverage Start Date Coverage End Date Medicare National [employer] [address] [facility] [place] [place] [address] [id number] Mati Barton Self - patient is the insured 3 [facility] [address] [place] [address] [id number] Mati Barton Self - patient is the insured 1 Medical (General) History Medical History History ICD Code Arthritis Back,Hip,and Knee pain type II diabetes High blood pressure Numbness Measles Mumps Chicken pox Joint implants/screws drop foot - Right Surgical History Surgery Date(Month/Year) knee surgery, left eye surgery rotator cuff tear repair 12/19/2018 back stimulator surgery 09/22/21
== END 2024-07-12 15:33 | disposition home or self-care (01) ==
LOC: HO.HKA 15:13
PROVIDERS: PCP Internal Medicine; Visit Provider Internal Medicine Nephrology
DX: I10 Essential (primary) hypertension (principal); N18.32 Chronic kidney disease, stage 3b; E11.21 Type 2 diabetes mellitus with diabetic nephropathy
CPT/HCPCS: 99214

== ENCOUNTER 2024-07-15 11:52 | Outpatient (REF) | payer MEDICARE, BC, SELFPAY ==
--- NOTE | ~2024-07-15 | XR_ITS ---
EXAMINATION: XR HAND 3 OR MORE VIEWS LEFT HISTORY: M79.642 - Pain in left hand COMPARISON: Comparison is made with the prior examination dated 07/04/2024. FINDINGS: Three views of the left hand are submitted. Osseous mineralization is normal. Again seen are comminuted fractures of the distal phalanges of the 2nd, 3rd, and 4th fingers. There is moderate osteoarthritis of the MCP joint of the thumb. There is a soft tissue injury at the fracture sites. XR/XR hand LT min 3V IMPRESSION: Comminuted fractures of the distal phalanges of the 2nd, 3rd, and 4th fingers. Electronically signed by: Amado Yang MD 07/16/2024 10:52 AM EDT
--- OUTSIDE RECORDS SUMMARY | 2024-07-15 13:36 | XMS_ITS ---
Author Organization [facility] Address [address] [place] [address] Care Team Providers Care Marine Biologist Name Role Phone Anup Chacon MD Primary Care Provider Unavail Rubén óLpez Unavailable [phone] Parrish Encounters Encounter Location Date Provider Diagnosis [address] [address] 05/03/2024 Rubén Arshad Plan Of Treatment Next Appt Details Provider Name:Rubén Arshad , 09/20/2024 01:30:00 PM, [address] [place] [address], [phone], Progress Notes * Mati HOPKINS JrDOB: (74 yo M)Acc No.[id number]:05/03/2024 Progress Note Patient:?Mati HOPKINS Jr Provider:?Rubén Arshad DPM :1950???Age:73 Y???Sex:Male Chetan e:05/03/2024 Address:[address] [place] [address] Pcp:Anup Chacon MD Subjective: * Chief Complaints: [...] Arshad DPM Date:?2023 Generated for [place] duckworth/Patrick/Oren on:?07/15/2024 01:36 PM EDT
--- OUTSIDE RECORDS SUMMARY | 2024-07-15 13:36 | XMS_ITS ---
Author Organization [facility] Ben nathan Bourbon Address [address] [facility] [place] [address] Care Team Providers Care Board Design Engineer Name Role Phone Anup Chacon MD Primary Care Provider Unavail able Rubén Arshad Unavailable [phone] Allergies Allergen (clinical drug ingredient) Drug/Non Drug [...] Ordered Date Performed Result Body Sit e 68778-CTSCHBG NAIL, 6 OR MORE 05/28/2024 N/A 86664-ZNSC SKIN LESIONS, OVER 4 05/28/2024 N/A Encounters Encounter Location Date Provider Diagnosis [facility] [address] [place] [address] 05/28/2024 Rubén Arshad Type 1 diabetes mellitus [...] Treatment Pending Test Test Name Order Date 91004-EGOMHLG NAIL, 6 OR MORE 05/28/2024 30181-HQRT SKIN LESIONS, OVER 4 05/28/19 25 Next Appt Details Follow Up: prn, Reason: Provider Name:Rubén Arshad , 09/20/2024 01:30:00 PM, [address] [place] [address], [phone], Procedure Notes * Category Sub-Category Detail Notes [...] use of a nail nipper and/or dremel-type grinder hardboard, to a more viable healthy nail plate [...] to maintain effectiveness in symptomatic relief - 69530 Keratoma Treatment Parring or Cutting o f [...] instrumentation by the physician of record - 05867 Progress Notes * Mati HOPKINS JrDOB: (73 yo M)Acc No.[id number]:05/28/2024 Progress Note Patient:?Mati HOPKINS Jr Provider:?Rubén Arshad DPM :1950???Age:73 Y???Sex:Male Chetan e:05/28/2024 Address:[address] [place], [place] [address] Pcp:Anup Chacon MD Subjective: * Chief Complaints: [...] 1. ?Exercise: no. ?Marital status: . 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 ???Drug/Alcohol:?AUDIT-C (Standard)?Did you have a drink [...] use of a nail nipper and/or dremel-type grinder hardboard, to a more viable healthy nail plate [...] to maintain effectiveness in symptomatic relief - 39246.?Keratoma Treatment:?Parring or Cutting of Benign Hyperkeratotic Lesion(s)?(-56) [...] instrumentation by the physician of record - 37142.? * Procedure Codes:?71253 DEBRI DE NAIL, 6 OR MORE, Modifiers: XS 90313 TRIM SKIN LESIONS, OVER 4, Modifiers: XS [...] Provider:?Rubén Arshad DPM Date:?2024 Generated for Mich duckworth/Patrick/eTzacsmitting on:?07/15/2024 01:36 PM EDT History and Physical Notes * HPI (History [...]
--- OUTSIDE RECORDS SUMMARY | 2024-07-15 13:36 | XMS_ITS ---
Author Organization [facility] Ben nathan [place]on Address [address] [facility] [address] Care Team Providers Care 911 Emergency Services Dispatcher Name Role Phone Anup Chacon MD Primary Care Provider Unavail able Rubén Arshad Unavailable [phone] Allergies Allergen (clinical drug ingredient) Drug/Non Drug [...] Ordered Date Performed Result Body Sit e 29328-SWMRDLF NAIL, 6 OR MORE 01/30/2024 N/A 02277-XFER SKIN LESIONS, OVER 4 01/30/2024 N/A Encounters Encounter Location Date Provider Diagnosis [facility] [address] [address] 01/30/2024 Rubén Arshad Type 1 diabetes mellitus [...] INSTRUCTIONS.pdf) Pending Test Test Name Order Date 68549-LBUNLKD NAIL, 6 OR MORE 01/30/2024 22546-TPZN SKIN LESIONS, OVER 4 01/30/20 Next Appt Details Follow Up: prn, Reason: Provider Name:Rubén Arshad , 09/20/2024 01:30:00 PM, [address] [place] [address], [phone], Procedure Notes * Category Sub-Category Detail Notes Debride Nail 6-10 Nail debridement Performance o f this nail treatment by a nonprofessional would put this patients foot and overall health at risk. Therefore, nail debridement was performed extensively to reduce/remove overall nail length, girth, thickness, subungual debris, and necrotic tissue, by manual and/or electrical means through the use of a nail nipper and/or dremel-type finish grinder, to a more viable healthy nail plate or bed tissue 6-10. Silver nitrate used for any petechial bleeding as necessary. Definitive antifungal treatment options have been reviewed and discussed with the patient. The patient chooses, no pharmaceutical tx - 41844 Keratoma Treatment Parring or Cutting o f Benign Hyperkeratotic Lesion(s) (-57) More than 4 Lesions - The Benign hyperkeratotic lesions, as described above were pared, and/or cut utilizing a sterile 15 blade, tissue nippers, and/or dremel - 57962 Progress Notes * Mati HOPKINSB: (73 yo M)Acc No.[id number]:01/30/2024 Progress Note Patient:?Mati HOPKINS Jr Provider:?Rubén Arshad DPM :1950???Age:73 Y???Sex:Male Chetan e:01/30/2024 [address] [facility] Pcp:Anup Chacon MD Subjective: * Chief [...] 1. ?Exercise: no. ?Marital status: . 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 * Medications:?TakingAtorvasta tin Calcium 40 MG Tablet [...] use of a nail nipper and/or dremel-type finish grinder, to a more viable healthy nail plate or bed tissue 6-10. Silver nitrate used for any petechial bleeding as necessary. Definitive antifungal treatment options have been reviewed and discussed with the patient. The patient chooses, no pharmaceutical tx - 59802.?Keratoma Treatment:?Parring or Cutting of Benign Hyperkeratotic Lesion(s)?(-57) More than 4 Lesions - The Benign hyperkeratotic lesions, as described above were pared, and/or cut utilizing a sterile 15 blade, tissue nippers, and/or dremel - 35920.? * Procedure Codes:?79411 DEBRI DE NAIL, 6 OR MORE, Modifiers: XS 91587 TRIM SKIN LESIONS, OVER 4, Modifiers: XS [...] for Mich duckworth/Patrick/Oren on:?07/15/2024 01:36 PM EDT History and Physical [...] PULSES (B): 1/4, B/L PT PULSES (B): 4, B/L CAPILLARY FILL TIME: delayed, all digits [...]
--- OUTSIDE RECORDS SUMMARY | 2024-07-15 13:36 | XMS_ITS | Patient Health Record ---
Author Organization [facility] Ben [place] Address [address] [place] [address] Care Team Providers Care Manufacturing Automation Engineer Name Role Phone Anup Chacon MD Primary Care Provider Unavail able Rubén Arshad Unavailable [phone] Allergies Allergen (clinical drug ingredient) Drug/Non Drug [...] Problem Acquired hammer toe of right foot (6618545202764353 ) Other hammer toe(s) (acquired), right foot (M20.41) Active confirmed Response to treatment, Improvemen t Problem Acquired hammer toe of left foot (5775922606815873 ) Other hammer toe(s) (acquired), left foot (M20.42) Active confirmed Response to treatment, Improvemen t Problem 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 I (381159870) Type 1 diabetes mellitus with diabetic polyneuropathy (E10.42) Active confirmed Problem 2593952 Right foot drop (M21.371) Active confirmed Vital Signs Blood pressure diastolic 75 mm Hg 05/28/2024 Height 5 ft 8 in in 05/28/2024 Blood pressure systolic 118 mm Hg 05/28/2024 Weight 125 lbs 05/28/2024 BMI 19 kg/m2 05/28/2024 Procedures Procedure Date Ordered Date Performed Result Body Sit e 13476-OVILHWO NAIL, 6 OR MORE 08/29/2023 N/A 32117-HEWH SKIN LESIONS, OVER 4 08/29/2023 N/A 89663-GTZLDIV NAIL, 6 OR MORE 11/14/2023 N/A 80178-Dmmoclsr Plate 11/14/2023 N/A 93262-QQVS SKIN LESIONS, OVER 4 11/14/2023 N/A 74307-GGHJQHK NAIL, 6 OR MORE 01/30/2024 N/A 43630-IAXL SKIN LESIONS, OVER 4 01/30/2024 N/A 30461-AMWMBRX NAIL, 6 OR MORE 05/28/2024 N/A 13847-RVWP SKIN LESIONS, OVER 4 05/28/2024 N/A Encounters Encounter Location Date Provider Diagnosis [address] [address] 08/29/2023 Rubén Arshad Type 1 diabetes mellitus with diabetic polyneuropathy E10.42 ; Onychomycosis B35.1 and Xerosis of skin L85.[address] [address] 11/14/2023 Rubén Arshad Type 1 diabetes mellitus with diabetic polyneuropathy E10.42 ; Onychomycosis B35.1 ; Xerosis of skin L85.3 and Ingrown nail L60.[address] [address] 01/30/2024 Rubénindra Arshad Type 1 diabetes mellitus with diabetic polyneuropathy E10.42 ; Tinea unguium B35.1 ; Other hammer toe(s) (acquired), right foot M20.41 and Other hammer toe(s) (acquired), left foot M20.[address] [address] 05/28/2024 Rubén Arshad Type 1 diabetes mellitus with diabetic polyneuropathy E10.42 ; Tinea unguium B35.1 ; Other hammer toe(s) (acquired), right foot M20.41 and Other hammer toe(s) (acquired), left foot M20.42 [facility] [address] [address] 07/31/2023 Rubén Arshad Assessments Encounter Date Diagnosis [...] Treatment Pending Test Test Name Order Date 08161-SIOTAJH NAIL, 6 OR MORE 02/23/2021 04442-KVSEGCS NAIL, 6 OR MORE 05/25/2021 17233-DMGOPWN NAIL, 6 OR MORE 08/03/2021 65580-VDHYDYH NAIL, 6 OR MORE 10/19/2021 07951-MPMYWJL NAIL, 6 OR MORE 01/04/2022 90460-MQVLGXX NAIL, 6 OR MORE 08/19/2022 15939-ZRDMVZE NAIL, 6 OR MORE 11/01/2022 91157-EJIYQKH NAIL, 6 OR MORE 01/13/2023 79096-AKJUUPO NAIL, 6 OR MORE 08/29/2023 52789-AGBNNHW NAIL, 6 OR MORE 11/14/2023 23594-MGCJGRT NAIL, 6 OR MORE 01/30/2024 21398-THGCPIX NAIL, 6 OR MORE 05/28/2024 91625-BKLDUJF NAIL, 1-5 03/17/2020 41028-XPPRALA NAIL, 1-5 01/07/2020 86525-RYEPEXG NAIL, 1-5 01/17/2017 41192-UJDPVJS NAIL, 1-5 04/18/2017 96784-VIUOFQN NAIL, 1-5 07/25/2017 03460-GSRAVJP NAIL, 1-5 10/24/2017 58895-OZLZKNG NAIL, 1-5 01/23/2018 27123-BWZPMSL NAIL, 1-5 05/11/2018 77677-WBJFLFX NAIL, 1-5 08/10/2018 68280-KZWAQWA NAIL, 1-5 10/30/2018 09948-HSQVRKU NAIL, 1-5 02/05/2019 79096-WEVZGXC NAIL, 1-5 05/21/2019 23195-OLTEGDG NAIL, 1-5 07/23/2019 91796-BMBFTRV NAIL, 1-5 10/01/2019 77045-Ykrdcqoi Plate 05/11/2018 90450-Ytysnbrg Plate 01/23/2018 72049-Jfhbyhzj Plate 11/14/2023 23176-Qucfzdum Plate Each Additional 70838-QJHM SKIN LESIONS, OVER 4 05/11/19 19 93266-ENCT SKIN LESIONS, OVER 4 08/11/19 40346-UIFR SKIN LESIONS, OVER 4 10/31/19 19 54306-IATL SKIN LESIONS, OVER 4 07/23/19 20 54976-MYCI SKIN LESIONS, OVER 4 02/06/20 19 93913-BHSW SKIN LESIONS, OVER 4 05/21/19 20 11048-VLXZ SKIN LESIONS, OVER 4 03/17/20 73879-LADD SKIN LESIONS, OVER 4 11/14/19 95973-WAVL SKIN LESIONS, OVER 4 05/28/19 25 84614-AGAT SKIN LESIONS, OVER 4 01/30/20 24 48521-ZVSS SKIN LESIONS, OVER 4 08/29/19 24 73944-BQJM SKIN LESIONS, OVER 4 01/14/20 23 02684-DCFD SKIN LESIONS, OVER 4 11/02/19 23 78337-DQGU SKIN LESIONS, OVER 4 08/20/19 85273-RMKN SKIN LESIONS, OVER 4 10/01/19 20 13922-FORS SKIN LESIONS, OVER 4 01/07/20 20 04753-ZCYP SKIN LESIONS, OVER 4 02/24/20 21 63074-UCIP SKIN LESIONS, OVER 4 01/05/20 22 73739-HKXW SKIN LESIONS, OVER 4 10/20/19 62241-OAJO SKIN LESIONS, OVER 4 08/04/19 22 20035-KMJX SKIN LESIONS, OVER 4 05/25/19 22 41495-ATPU SKIN LESIONS, 2 TO 4 01/24/20 18 92207-KNPG SKIN LESIONS, 2 TO 4 07/26/19 18 02826-RGUW SKIN LESIONS, 2 TO 4 10/25/19 18 21026-SYWK SKIN LESIONS, 2 TO 4 01/18/20 17 02979-NUQU SKIN LESIONS, 2 TO 4 04/18/20 17 Z9635-CRRWIBDY DYSTROPHIC NAILS ANY # L2845-SOAQUQHM DYSTROPHIC NAILS ANY # V6025-YVLVVEZJ DYSTROPHIC NAILS ANY # F5673-DULHYPHC DYSTROPHIC NAILS ANY # E8482-LNYIJPLA DYSTROPHIC NAILS ANY # L8000-CBGGSOHA DYSTROPHIC NAILS ANY # M2927-XPJWCNKR DYSTROPHIC NAILS ANY # X9728-GZJOQJGW DYSTROPHIC NAILS ANY # A7605-QDCVNBXQ DYSTROPHIC NAILS ANY # A0818-DPQNMEUQ DYSTROPHIC NAILS ANY # B6182-VUQMZRVY DYSTROPHIC NAILS ANY # Q4045-GQHMAVCQ DYSTROPHIC NAILS ANY # H0854-QXSJBCKW DYSTROPHIC NAILS ANY # T8781-BAXFKGQS DYSTROPHIC NAILS ANY # Next Appt Details Provider Name:Rubén Arshad , 09/20/2024 01:30:00 PM, [address] [place], [address], Insurance Providers Payer Name Payer Address Payer Phone Subscriber Number Group Number Insured Name Patient Relationship to Insured Coverage Start Date Coverage End Date Medicare National [employer] [address] [place] [address] [id number] Mati Barton Self - patient is the insured 3 [facility] [address] [place] [address] [id number] Mati Barton Self - patient is the insured 1 Medical (General) History Medical History History ICD Code Arthritis Back,Hip,and Knee pain type II diabetes High blood pressure Numbness Measles Mumps Chicken pox Joint implants/screws drop foot - Right Surgical History Surgery Date(Month/Year) knee surgery, left eye surgery rotator cuff tear repair 12/19/2018 back stimulator surgery 09/22/21
--- OUTSIDE RECORDS SUMMARY | 2024-07-15 13:36 | XMS_ITS | Clinical Summary ---
Author Organization [facility] Address [address] [place] [address] Phone Care Team Providers Care Turbogenerator Operator Name Role Phone Anup Chacon MD Primary Care Provider [phone] Allergies Active Allergy Reactions Criticality Noted Date [...] 9.4 8.7 - 10.7 mg/dL eGFR Non-Afr [place]ij[place] 36 Total Bilirubin 0.2 MG/DL ALT (SGPT) [...] Most Recently Relevant to Health Maintenance Insurance [facility] MEDIC[facility] MED[facility] Care Teams Turbogenerator Operator Relationship Specialty Start Date End Date Anup Chacon MD [address] [facility] - General 05/18/20
== END 2024-07-15 11:53 | disposition home or self-care (01) ==
LOC: HO.HOSX 11:52
DX: S62.631A Displaced fracture of distal phalanx of left index finger, initial encounter for closed fracture (principal); S62.633A Displaced fracture of distal phalanx of left middle finger, initial encounter for closed fracture; S62.635A Displaced fracture of distal phalanx of left ring finger, initial encounter for closed fracture; S61.311A Laceration without foreign body of left index finger with damage to nail, initial encounter; S61.313A Laceration without foreign body of left middle finger with damage to nail, initial encounter; S61.315A Laceration without foreign body of left ring finger with damage to nail, initial encounter; N18.32 Chronic kidney disease, stage 3b; I25.10 Atherosclerotic heart disease of native coronary artery without angina pectoris; E11.9 Type 2 diabetes mellitus without complications
CPT/HCPCS: 73130; 99212

== ENCOUNTER 2024-07-15 15:09 | Outpatient (AMB) | payer MEDICARE, BC, SELFPAY ==
--- NOTE | 2024-07-15 15:21 | MHC.OFFVIS ---
Intake Visit Reasons: OV-LT Finger tip laceration,tib partial amputation Intake Note: Mati 74 year old right hand dominant male presents today with is grand daughter Etelvina, for a new problem visit for his left index , middle and ring finger. State on 07/04/24 while working with a table saw, his fingers went towards the blade.Patient reports that he is doing dressing changes at home. His pain is not bad, denies numbness and tingling. He has not concerns at this time. Allergies gabapentin [GABAPENTIN] Allergy (Severe, Verified 07/12/24 15:17) SHORTNESS OF BREATH naproxen [NAPROXEN] Allergy (Unknown, Verified 07/12/24 15:17) KIDNEY SHUT DOWN TO ALL NAPROXEN PRODUCTS Sulfa (Sulfonamide Antibiotics) [SULFA (SULFONAMIDE ANTIBIOTICS)] Allergy (Unknown, Verified 07/12/24 15:17) HIVES sulfur Allergy (Unknown, Verified 07/12/24 15:17) unknown anti-inflammatory Allergy (Unknown, Uncoded 07/09/24 15:12) unknown sulfa Allergy (Unknown, Uncoded 07/09/24 15:12) unknown HPI HPI OV-LT Finger tip laceration,tib partial amputation: Details: Mati 74 year old right hand dominant male presents today with is grand daughter Etelvina, for a new problem visit for his left index , middle and ring finger. State on 07/04/24 while working with a table saw, his fingers went towards the blade.Patient reports that he is doing dressing changes at home. His pain is not bad, denies numbness and tingling. He has not concerns at this time. [facility] Medical History (Updated 07/09/24 @ 15:31 by Tera Carranza) Pes equinus, acquired Complex regional pain syndrome i of left lower limb Osteoarthritis of right knee Chronic, continuous use of opioids PTSD (post-traumatic stress disorder) Anxiety and depression Peripheral neuropathy Arthritis Back pain Diabetes GERD (gastroesophageal reflux disease) COPD (chronic obstructive pulmonary disease) Sleep apnea On beta sean at home Elevated cholesterol CHF (congestive heart failure) Myocardial infarction CAD (coronary artery disease) HTN (hypertension) Acute medial meniscus tear of right knee Internal derangement of right knee Internal derangement of left knee Degenerative arthritis of knee, bilateral Surgical History History of back surgery History of cardiac cath Hx of sinus surgery Hx of eye surgery History of penile implant History of open reduction and internal fixation (ORIF) procedure Hx of arthroscopy of left knee Hx of repair of left rotator cuff Hx of bariatric surgery Social History Patient Tobacco Use Status: Former Tobacco user Current occupational status: retired 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 Review of Systems Const All systems reviewed & are unremarkable except as noted in HPI and below Physical Exam Const General: cooperative, healthy appearing and no acute distress Orientation/consciousness: patient oriented x3 HEENT Head: Yes normocephalic and Yes atraumatic Eyes EOM: EOMs intact bilaterally Resp Effort & Inspection: normal respiratory effort and able to speak in complete sentences Cardio Jugular venous distension: no JVD Skin General skin exam: turgor normal Rashes: no rashes Neuro General: patient oriented x3 Extrem Other: Evaluation of Left Upper Extremity: The patient is alert, oriented, and in no acute distress Neuro: Median, Ulnar, Radial nerves motor and sensory intact. Cap refill is brisk and sensation was intact to the tips of all injured digits ROM: With encouragement he can make a fist and extend all his digits Mild radial deviation of the tip of the ring finger. Middle and index finger alignment was satisfactory No malrotation seen General: Complex lacerations to the tips of the left index middle and ring fingers. These lacerations appear to involve at least part of the nail bed in each of these digits. Sutures in place in the index and middle fingers. Wounds appear dry, no drainage. No erythema or evidence of infection at this time Radiographs: 3 views of the left hand were taken and viewed by me today in clinic. They show a distal phalanx fractures of the index, middle, and ring fingers. Psych Appearance: grossly normal Affect: normal affect Attitude: cooperative Assessment & Plan Assessment & Plan (1) Fracture of distal phalanx of left index finger: Code(s): S62.631A - Displaced fracture of distal phalanx of left index finger, initial encounter for closed fracture Category: Medical (2) Fracture of distal phalanx of left middle finger: Code(s): S62.633A - Displaced fracture of distal phalanx of left middle finger, initial encounter for closed fracture Category: Medical (3) Fracture of distal phalanx of left ring finger: Code(s): S62.635A - Displaced fracture of distal phalanx of left ring finger, initial encounter for closed fracture Category: Medical (4) Laceration of left index finger with damage to nail: Code(s): S61.311A - Laceration without foreign body of left index finger with damage to nail, initial encounter Category: Medical (5) Laceration of left middle finger with damage to nail: Code(s): S61.313A - Laceration without foreign body of left middle finger with damage to nail, initial encounter Category: Medical (6) Laceration of left ring finger with damage to nail: Code(s): S61.315A - Laceration without foreign body of left ring finger with damage to nail, initial encounter Category: Medical (7) Stage 3b chronic kidney disease (CKD): Code(s): N18.32 - Chronic kidney disease, stage 3b Category: Medical (8) CAD (coronary artery disease): Code(s): I25.10 - Atherosclerotic heart disease of [place] coronary artery without angina pectoris Category: Medical (9) Diabetes: Comment: IDDM FBS usually 125-130 Code(s): E11.9 - Type 2 diabetes mellitus without complications Category: Medical Plan Assessment & Plan: 1. Left index finger open distal phalanx fracture 2. Left index fingertip laceration, through the nailbed 3. Left middle finger open distal phalanx fracture 4. Left middle fingertip laceration, through the nailbed 5. Left ring finger open distal phalanx fracture 6. Left ring fingertip laceration, through the nailbed From a tablesaw injury, DOI: 07/04/24 I educated him about this condition These wounds were washed out and reapproximated with sutures in the emergency department. I discussed operative and non-operative treatment options I think we can manage this conservatively, and he is in agreement The wounds were cleaned and new dressings were applied. Finger splints were also applied to the distal aspect of all 3 injured digits. His radial aspect of the ring finger was splinted to correct the slight radial deviation He will continue to take his Abx as instructed I explained the signs and symptoms of infection, if the patient develops any new or worsening erythema, drainage, pain, or warmth they should contact the clinic or attend the ED. I educated him about proper wound care, including the use of half strength peroxide daily to clean his wounds, and Abx ointment use Patient was educated he can also continue washing lacerations with soap and water in the sink or shower, but should continue to avoid submerging I discussed activity modifications, he is to lift nothing heavier than a cellphone for the next 5 weeks He will work on gentle finger ROM exercises at home, he should focus on MCP & PIP joint motion He will follow up next week another suture removal Scribed for Barbara Villalta MD by Tera Carranza, medical dermatologist, on 07/09/24 at 3:40 PM, EST. Coding Level of Care Code Global (16751) Diagnoses Fracture of distal phalanx of left index finger S62.631A Fracture of distal phalanx of left middle finger S62.633A Fracture of distal phalanx of left ring finger S62.635A Laceration of left index finger with damage to nail S61.311A Laceration of left middle finger with damage to nail S61.313A Laceration of left ring finger with damage to nail S61.315A Stage 3b chronic kidney disease (CKD) N18.32 CAD (coronary artery disease) I25.10 Diabetes E11.9
--- OUTSIDE RECORDS SUMMARY | 2024-07-15 17:19 | XMS_ITS | Clinical Summary ---
Author Organization [facility] Address [address] [place] [address] Phone Care Team Providers Care Stave Cutting Supervisor Name Role Phone Anup Chacon MD Primary Care Provider [phone] Allergies Active Allergy Reactions Criticality Noted Date Comments Meperidine Hcl Other (see comments) 05/25/2021 Naproxen Other (see comments) 07/22/2020 Sulfa Antibiotics Other (see comments) 07/23/19 Sulfamethoxazole-Trimethoprim Other (see comments) 05/25/2021 Medications aspirin (ST MAIT) 81 MG EC tablet Take 1 tablet [...] 9.4 8.7 - 10.7 mg/dL eGFR Non-Afr [place] 36 Total Bilirubin 0.2 MG/DL ALT (SGPT) [...] to Health Maintenance Insurance [facility] MEDICARE [facility] MEDICARE Care Teams Stave Cutting Supervisor Relationship Specialty Start Date End Date Anup Chacon MD [address] [facility] - General 05/18/20
== END 2024-07-15 15:52 | disposition home or self-care (01) ==
PROVIDERS: PCP Internal Medicine
DX: S62.631A Displaced fracture of distal phalanx of left index finger, initial encounter for closed fracture (principal); S62.633A Displaced fracture of distal phalanx of left middle finger, initial encounter for closed fracture; S62.635A Displaced fracture of distal phalanx of left ring finger, initial encounter for closed fracture; S61.311A Laceration without foreign body of left index finger with damage to nail, initial encounter; S61.313A Laceration without foreign body of left middle finger with damage to nail, initial encounter; S61.315A Laceration without foreign body of left ring finger with damage to nail, initial encounter; N18.32 Chronic kidney disease, stage 3b; I25.10 Atherosclerotic heart disease of native coronary artery without angina pectoris; E11.9 Type 2 diabetes mellitus without complications
CPT/HCPCS: 99024

== ENCOUNTER → 2024-07-15 15:14 | Outpatient (BNV) | payer MEDICARE, BC, SELFPAY | PROVIDERS: Visit Provider Radiology Diagnostic Radiology | DX: S62.632A Displaced fracture of distal phalanx of right middle finger, initial encounter for closed fracture (principal); S62.633A Displaced fracture of distal phalanx of left middle finger, initial encounter for closed fracture; S62.634A Displaced fracture of distal phalanx of right ring finger, initial encounter for closed fracture | CPT/HCPCS: 73130 ==

== ENCOUNTER 2024-07-23 14:01 | Outpatient (AMB) | payer MEDICARE, BC, SELFPAY ==
--- NOTE | 2024-07-23 14:07 | A.OFFVIS_ITS ---
Vital Signs 07/23/24 14:14 Height 5 ft 8 in Weight 203 lb BMI 30.9 Handedness Right Intake Visit Reasons: OV-LT Finger tip lac,tib partial amputation-w/XR Intake Note: Mati is a right hand dominant male who presents today for a follow up of his left index laceration/fx and middle finger fx, DOI 07/04/24. Patient reports he is having little to no pain at the moment. Sutures look clean, no redness. 1. Left index finger open distal phalanx fracture 2. Left index fingertip laceration, through the nailbed 3. Left middle finger open distal phalanx fracture 4. Left middle fingertip laceration, through the nailbed 5. Left ring finger open distal phalanx fracture 6. Left ring fingertip laceration, through the nailbed From tablesaw injury, DOI: 07/04/24. Allergies gabapentin [GABAPENTIN] Allergy (Severe, Verified 07/23/24 14:14) SHORTNESS OF BREATH naproxen [NAPROXEN] Allergy (Unknown, Verified 07/23/24 14:14) KIDNEY SHUT DOWN TO ALL NAPROXEN PRODUCTS Sulfa (Sulfonamide Antibiotics) [SULFA (SULFONAMIDE ANTIBIOTICS)] Allergy (Unknown, Verified 07/23/24 14:14) HIVES sulfur Allergy (Unknown, Verified 07/23/24 14:14) unknown anti-inflammatory Allergy (Unknown, Uncoded 07/09/24 15:12) unknown sulfa Allergy (Unknown, Uncoded 07/09/24 15:12) unknown HPI HPI OV-LT Finger tip lac,tib partial amputation-w/XR: Details: Mati is a right hand dominant male who presents today for a follow up of his left index laceration/fx and middle finger fx, DOI 07/04/24. Patient reports he is having little to no pain at the moment. Sutures look clean, no redness. 1. Left index finger open distal phalanx fracture 2. Left index fingertip laceration, through the nailbed 3. Left middle finger open distal phalanx fracture 4. Left middle fingertip laceration, through the nailbed 5. Left ring finger open distal phalanx fracture 6. Left ring fingertip laceration, through the nailbed From tablesaw injury, DOI: 07/04/24. [facility] Medical History (Updated 07/09/24 @ 15:31 by Tera Kendrick Pes equinus, acquired Complex regional pain syndrome i of left lower limb Osteoarthritis of right knee Chronic, continuous use of opioids PTSD (post-traumatic stress disorder) Anxiety and depression Peripheral neuropathy Arthritis Back pain Diabetes GERD (gastroesophageal reflux disease) COPD (chronic obstructive pulmonary disease) Sleep apnea On beta sean at home Elevated cholesterol CHF (congestive heart failure) Myocardial infarction CAD (coronary artery disease) HTN (hypertension) Acute medial meniscus tear of right knee Internal derangement of right knee Internal derangement of left knee Degenerative arthritis of knee, bilateral Surgical History History of back surgery History of cardiac cath Hx of sinus surgery Hx of eye surgery History of penile implant History of open reduction and internal fixation (ORIF) procedure Hx of arthroscopy of left knee Hx of repair of left rotator cuff Hx of bariatric surgery Social History Patient Tobacco Use Status: Former Tobacco user Current occupational status: retired 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 Review of Systems Const All systems reviewed & are unremarkable except as noted in HPI and below Physical Exam Vital Signs: BMI result Body Mass Index 30.9 Const General: cooperative, healthy appearing and no acute distress Orientation/consciousness: patient oriented x3 HEENT Head: Yes normocephalic and Yes atraumatic Eyes EOM: EOMs intact bilaterally Resp Effort & Inspection: normal respiratory effort and able to speak in complete sentences Cardio Jugular venous distension: no JVD Skin General skin exam: turgor normal Rashes: no rashes Neuro General: patient oriented x3 Extrem Other: Evaluation of Left Upper Extremity: The patient is alert, oriented, and in no acute distress Neuro: Median, Ulnar, Radial nerves motor and sensory intact. Cap refill is brisk and sensation was intact to the tips of all injured digits ROM: With encouragement he can make a fist and extend all his digits Mild radial deviation of the tip of the ring finger. Middle and index finger alignment was satisfactory No malrotation seen General: Complex lacerations to the tips of the left index middle and ring fingers, healing well These lacerations appear to involve at least part of the nail bed in each of these digits. Sutures in place in the index and middle fingers. Wounds appear dry, no drainage. No erythema or evidence of infection at this time Psych Appearance: grossly normal Affect: normal affect Attitude: cooperative Assessment & Plan Assessment & Plan (1) Fracture of distal phalanx of left index finger: Code(s): S62.631A - Displaced fracture of distal phalanx of left index finger, initial encounter for closed fracture Category: Medical (2) Fracture of distal phalanx of left middle finger: Code(s): S62.633A - Displaced fracture of distal phalanx of left middle finger, initial encounter for closed fracture Category: Medical (3) Fracture of distal phalanx of left ring finger: Code(s): S62.635A - Displaced fracture of distal phalanx of left ring finger, initial encounter for closed fracture Category: Medical (4) Laceration of left index finger with damage to nail: Code(s): S61.311A - Laceration without foreign body of left index finger with damage to nail, initial encounter Category: Medical (5) Laceration of left middle finger with damage to nail: Code(s): S61.313A - Laceration without foreign body of left middle finger with damage to nail, initial encounter Category: Medical (6) Laceration of left ring finger with damage to nail: Code(s): S61.315A - Laceration without foreign body of left ring finger with damage to nail, initial encounter Category: Medical (7) Stage 3b chronic kidney disease (CKD): Code(s): N18.32 - Chronic kidney disease, stage 3b Category: Medical (8) CAD (coronary artery disease): Code(s): I25.10 - Atherosclerotic heart disease of [place] coronary artery without angina pectoris Category: Medical (9) Diabetes: Comment: IDDM FBS usually 125-130 Code(s): E11.9 - Type 2 diabetes mellitus without complications Category: Medical Plan Assessment & Plan: 1. Left index finger open distal phalanx fracture 2. Left index fingertip laceration, through the nailbed 3. Left middle finger open distal phalanx fracture 4. Left middle fingertip laceration, through the nailbed 5. Left ring finger open distal phalanx fracture 6. Left ring fingertip laceration, through the nailbed From a tablesaw injury, DOI: 07/04/24 I educated him about this condition These wounds were washed out and reapproximated with sutures in the emergency department. I discussed operative and non-operative treatment options I think we can manage this conservatively, and he is in agreement The wounds were cleaned and new dressings were applied. Finger splints were also applied to the distal aspect of all 3 injured digits. His radial aspect of the ring finger was splinted to correct the slight radial deviation No further antibiotic therapy necessary I explained the signs and symptoms of infection, if the patient develops any new or worsening erythema, drainage, pain, or warmth they should contact the clinic or attend the ED. I educated him about proper wound care, including the use of half strength peroxide daily to clean his wounds, and Abx ointment use Patient was educated he can also continue washing lacerations with soap and water in the sink or shower, but should continue to avoid submerging I discussed activity modifications, he is to lift nothing heavier than a cellphone for the next 5 weeks He will work on gentle finger ROM exercises at home, he should focus on MCP & PIP joint motion Follow-up in 2 weeks, sooner with any acute concerns Scribed for Barbara Villalta MD by Tera Carranza, medical claims representative, on 07/09/24 at 3:40 PM, EST. Coding Level of Care Code Global (02072) Diagnoses Fracture of distal phalanx of left index finger S62.631A Fracture of distal phalanx of left middle finger S62.633A Fracture of distal phalanx of left ring finger S62.635A Laceration of left index finger with damage to nail S61.311A Laceration of left middle finger with damage to nail S61.313A Laceration of left ring finger with damage to nail S61.315A Stage 3b chronic kidney disease (CKD) N18.32 CAD (coronary artery disease) I25.10 Diabetes E11.9
[2024-07-23 14:14] VITALS: BMI 30.9
--- OUTSIDE RECORDS SUMMARY | 2024-07-23 16:46 | XMS_ITS | Clinical Summary ---
Author Organization [facility] Address [address] [place] [address] Phone Care Team Providers Care Deputy Editor In Chief Name Role Phone Anup Chacon MD Primary [...] 9.4 8.7 - 10.7 mg/dL eGFR Non-Afr [place] 36 Total Bilirubin 0.2 MG/DL ALT (SGPT) [...] Most Recently Relevant to Health Maintenance Insurance [facility] MEDICARE [facility] MEDICARE Care Teams Deputy Editor In Chief Relationship Specialty Start Date End Date Anup Chacon MD [address] [facility] - General 05/18/20
--- OUTSIDE RECORDS SUMMARY | 2024-07-23 16:46 | XMS_ITS ---
Author Organization [facility] [place] Address [address] [place] [address] Care Team Providers Care Pipe Line Repairer Name Role Phone Anup Chacon MD Primary Care Provider Unavail able Rubén Arshad Unavailable [phone] Allergies Allergen (clinical drug ingredient) Drug/Non Drug Allergy documented on EMR Reaction Allergy Type Onset Date Status Bactrim Unknown Drug Allergy Active meperidine Demerol [...] Ordered Date Performed Result Body Sit e 75637-FAQFRES NAIL, 6 OR MORE 05/28/2024 N/A 82408-FEGM SKIN LESIONS, OVER 4 05/28/2024 N/A Encounters Encounter Location Date Provider Diagnosis [facility] [place] [address] [place] [address] 05/28/2024 Rubén Arshad Type 1 diabetes mellitus [...] Treatment Pending Test Test Name Order Date 35116-CZFLSCQ NAIL, 6 OR MORE 05/28/2024 25243-ZFYI SKIN LESIONS, OVER 4 05/28/19 25 Next Appt Details Follow Up: prn, Reason: Provider Name:Rubén Arshad , 09/20/2024 01:30:00 PM, [address] [place] [address], [phone], Procedure Notes * Category Sub-Category Detail Notes [...] use of a nail nipper and/or dremel-type automatic corn grinder operator, to a more viable healthy [...] to maintain effectiveness in symptomatic relief - 85383 Keratoma Treatment Parring or Cutting o f [...] power dremel instrumentation by the physician of [facility] - 56766 Progress Notes * Mati HOPKINS JrDOB: (73 yo M)Acc No.[id number]:05/28/2024 Progress Note Patient:?Mati HOPKINS Jr Provider:?Rubén Arshad DPM :1950???Age:73 Y???Sex:Male Chetan e:05/28/2024 Address:[address] [place], [place] [address] Pcp:Anup Chacon MD Subjective: * Chief Complaints: [...] 1. ?Exercise: no. ?Marital status: . 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 ???Drug/Alcohol:?AUDIT-C (Standard)?Did you have a drink containing [...] use of a nail nipper and/or dremel-type automatic corn grinder operator, to a more viable healthy [...] to maintain effectiveness in symptomatic relief - 60785.?Keratoma Treatment:?Parring or Cutting of Benign Hyperkeratotic Lesion(s)?(-56) [...] instrumentation by the physician of record - 44970.? * Procedure Codes:?52191 DEBRI DE NAIL, 6 OR MORE, Modifiers: XS 99032 TRIM SKIN LESIONS, OVER 4, Modifiers: XS [...] Arshad DPM Date:?2024 Generated for Mich duckworth/Patrick/Oren on:?07/23/2024 04:46 PM EDT History and Physical Notes * [...]
--- OUTSIDE RECORDS SUMMARY | 2024-07-23 16:47 | XMS_ITS | Patient Health Record ---
Author Organization [facility] Address [address] [facility] [place] [address] Care Team Providers Care Complaint Manager Name Role Phone Anup Chacon MD Primary Care Provider Unavail able Rubén Arshad Unavailable [phone] Allergies Allergen (clinical drug ingredient) Drug/Non Drug [...] Administration Date Status Comme nts COVID-19 Pfizer BioNTSymphony Concierge Vaccine Unknown 08/06/2020 Administered 1st 07/16/20 2nd [...] Problem Acquired hammer toe of right foot (5844954795501651 ) Other hammer toe(s) (acquired), right foot (M20.41) Active confirmed Response to treatment, Improvemen t Problem Acquired hammer toe of left foot (2830907960349451 ) Other hammer toe(s) (acquired), left foot (M20.42) Active confirmed Response to treatment, Improvemen t Problem 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 I (942089324) Type 1 diabetes mellitus with diabetic polyneuropathy (E10.42) Active confirmed Problem 0649431 Right foot drop (M21.371) Active confirmed Vital Signs Blood pressure diastolic 75 mm Hg 05/28/2024 Height 5 ft 8 in in 05/28/2024 Blood pressure systolic 118 mm Hg 05/28/2024 Weight 125 lbs 05/28/2024 BMI 19 kg/m2 05/28/2024 Procedures Procedure Date Ordered Date Performed Result Body Sit e 55150-EDAMPUG NAIL, 6 OR MORE 08/29/2023 N/A 19760-IAOX SKIN LESIONS, OVER 4 08/29/2023 N/A 20488-KBJBMZA NAIL, 6 OR MORE 11/14/2023 N/A 53558-Lhdmdbfw Plate 11/14/2023 N/A 30976-FVAX SKIN LESIONS, OVER 4 11/14/2023 N/A 63583-GZQBDOM NAIL, 6 OR MORE 01/30/2024 N/A 03554-EABK SKIN LESIONS, OVER 4 01/30/2024 N/A 53302-MHOGYUK NAIL, 6 OR MORE 05/28/2024 N/A 68114-RWIO SKIN LESIONS, OVER 4 05/28/2024 N/A Encounters Encounter Location Date Provider Diagnosis [address] [address] 08/29/2023 Rubén Arshad Type 1 diabetes mellitus with diabetic polyneuropathy E10.42 ; Onychomycosis B35.1 and Xerosis of skin L85.[address] [address] 11/14/2023 Rubénindra Arshad Type 1 diabetes mellitus with diabetic polyneuropathy E10.42 ; Onychomycosis B35.1 ; Xerosis of skin L85.3 and Ingrown nail L60.[address] [address] 01/30/2024 Rubénindra Arshad Type 1 diabetes mellitus with diabetic polyneuropathy E10.42 ; Tinea unguium B35.1 ; Other hammer toe(s) (acquired), right foot M20.41 and Other hammer toe(s) (acquired), left foot M20.[address] [address] 05/28/2024 Rubén Arshad Type 1 diabetes mellitus with diabetic polyneuropathy E10.42 ; Tinea unguium B35.1 ; Other hammer toe(s) (acquired), right foot M20.41 and Other hammer toe(s) (acquired), left foot M20.42 [facility] [address] [place] [address] 07/31/2023 Rubén Arshad Assessments Encounter Date Diagnosis [...] Treatment Pending Test Test Name Order Date 51308-SEPOXBN NAIL, 6 OR MORE 02/23/2021 56412-UKIHXAB NAIL, 6 OR MORE 05/25/2021 45502-GGGBNGY NAIL, 6 OR MORE 08/03/2021 49745-PLOZEDC NAIL, 6 OR MORE 10/19/2021 66162-SQLXNBV NAIL, 6 OR MORE 01/04/2022 68433-SIPJVZF NAIL, 6 OR MORE 08/19/2022 95127-AFSUJJZ NAIL, 6 OR MORE 11/01/2022 50875-PQWVBUO NAIL, 6 OR MORE 01/13/2023 58927-SILXVBA NAIL, 6 OR MORE 08/29/2023 03963-RKCBJSH NAIL, 6 OR MORE 11/14/2023 24901-QRFGMQT NAIL, 6 OR MORE 01/30/2024 57860-ARGJJQI NAIL, 6 OR MORE 05/28/2024 13441-HISGSDZ NAIL, 1-5 03/17/2020 01582-LCJJYKZ NAIL, 1-5 01/07/2020 34406-MOUYCKN NAIL, 1-5 01/17/2017 13886-BLAKIYR NAIL, 1-5 04/18/2017 90412-DYAIKAZ NAIL, 1-5 07/25/2017 75468-NOSDTJG NAIL, 1-5 10/24/2017 28374-LHGLJHC NAIL, 1-5 01/23/2018 81034-HRUONSQ NAIL, 1-5 05/11/2018 33997-NYOOTKB NAIL, 1-5 08/10/2018 59928-SAMRVGN NAIL, 1-5 10/30/2018 60467-UMYSYXY NAIL, 1-5 02/05/2019 10883-LMHWZLD NAIL, 1-5 05/21/2019 76540-TASHASX NAIL, 1-5 07/23/2019 75161-JRHELQO NAIL, 1-5 10/01/2019 27956-Otfrezjh Plate 05/11/2018 53168-Hlelslhr Plate 01/23/2018 03745-Ibqlhzgu Plate 11/14/2023 53939-Eovnkvws Plate Each Additional 24625-BBME SKIN LESIONS, OVER 4 05/11/19 19 13153-ZYBR SKIN LESIONS, OVER 4 08/11/19 19 64701-LSMU SKIN LESIONS, OVER 4 10/31/19 19 89032-AXRE SKIN LESIONS, OVER 4 07/23/19 20 99732-INUS SKIN LESIONS, OVER 4 02/06/20 19 04635-ODBI SKIN LESIONS, OVER 4 05/21/19 20 65861-YTVR SKIN LESIONS, OVER 4 03/17/20 94801-MNQK SKIN LESIONS, OVER 4 11/14/19 24 00874-CXMA SKIN LESIONS, OVER 4 05/28/19 25 91271-LMPS SKIN LESIONS, OVER 4 01/30/20 24 83254-YAFX SKIN LESIONS, OVER 4 08/29/19 24 64095-PIQD SKIN LESIONS, OVER 4 01/14/20 23 95667-QVEF SKIN LESIONS, OVER 4 11/02/19 23 80266-MRPV SKIN LESIONS, OVER 4 08/20/19 23 68340-MWYN SKIN LESIONS, OVER 4 10/01/19 20 22899-BJWA SKIN LESIONS, OVER 4 01/07/20 14902-SIVH SKIN LESIONS, OVER 4 02/24/20 21 30700-JBYI SKIN LESIONS, OVER 4 01/05/20 22 64723-TJAM SKIN LESIONS, OVER 4 10/20/19 22 06497-QVPR SKIN LESIONS, OVER 4 08/04/19 22 80801-JNZD SKIN LESIONS, OVER 4 05/25/19 22 64154-OGDM SKIN LESIONS, 2 TO 4 01/24/20 18 79615-FAXH SKIN LESIONS, 2 TO 4 07/26/19 18 39078-HPOT SKIN LESIONS, 2 TO 4 10/25/19 18 38750-VBUX SKIN LESIONS, 2 TO 4 01/18/20 17 54024-PVQF SKIN LESIONS, 2 TO 4 04/18/20 17 A6297-QRVWDXIO DYSTROPHIC NAILS ANY # I6677-LGJLHGNW DYSTROPHIC NAILS ANY # Z3056-ZUXSGFVJ DYSTROPHIC NAILS ANY # W5861-BUNEQCCD DYSTROPHIC NAILS ANY # E2820-WDRWCGWL DYSTROPHIC NAILS ANY # V1397-QLVHDYYC DYSTROPHIC NAILS ANY # V8857-SFOBXLEV DYSTROPHIC NAILS ANY # K2213-EPWTHMXL DYSTROPHIC NAILS ANY # C3760-PESLRZGM DYSTROPHIC NAILS ANY # W7794-RUUZDBOL DYSTROPHIC NAILS ANY # V0948-VIGJPRVE DYSTROPHIC NAILS ANY # Z9921-HPLOJGNX DYSTROPHIC NAILS ANY # M4731-CXZQCDBZ DYSTROPHIC NAILS ANY # I1933-ASQXQBFB DYSTROPHIC NAILS ANY # Next Appt Details Provider Name:Rubén Arshad , 09/20/2024 01:30:00 PM, [address] [place], [address], Insurance Providers Payer Name Payer Address Payer Phone Subscriber Number Group Number Insured Name Patient Relationship to Insured Coverage Start Date Coverage End Date Medicare National [employer] [address] [place] [address] [id number] Mati Barton Self - patient is the insured 3 [facility] [address] [place] [address] [phone] [id number] Mati Barton Self - patient is the insured 1 Medical (General) History Medical History History ICD Code Arthritis Back,Hip,and Knee pain type II diabetes High blood pressure Numbness Measles Mumps Chicken pox Joint implants/screws drop foot - Right Surgical History Surgery Date(Month/Year) knee surgery, left eye surgery rotator cuff tear repair 12/19/2018 back stimulator surgery 09/22/21
--- OUTSIDE RECORDS SUMMARY | 2024-07-23 16:47 | XMS_ITS ---
Author Organization [facility] [place] Address [address] [place] [address] Care Team Providers Care Planning Coordinator Name Role Phone Anup Chacon MD Primary Care Provider Unavail able Rubén Arshad Unavailable [phone] Allergies Allergen (clinical drug ingredient) Drug/Non Drug [...] Ordered Date Performed Result Body Sit e 95208-GIUPLIK NAIL, 6 OR MORE 01/30/2024 N/A 00995-KBRO SKIN LESIONS, OVER 4 01/30/2024 N/A Encounters Encounter Location Date Provider Diagnosis [facility] [address] [address] 01/30/2024 Rubén Arshad Type 1 diabetes mellitus [...] INSTRUCTIONS.pdf) Pending Test Test Name Order Date 78255-UPAOQAR NAIL, 6 OR MORE 01/30/2024 99057-VHJX SKIN LESIONS, OVER 4 01/30/20 Next Appt Details Follow Up: prn, Reason: Provider Name:Rubén Arshad , 09/20/2024 01:30:00 PM, [address] [place] [address], [phone], Procedure Notes * Category Sub-Category Detail Notes Debride Nail 6-10 Nail debridement Performance o f this nail treatment by a nonprofessional would put this patients foot and overall health at risk. Therefore, nail debridement was performed extensively to reduce/remove overall nail length, girth, thickness, subungual debris, and necrotic tissue, by manual and/or electrical means through the use of a nail nipper and/or dremel-type soap grinder, to a more viable healthy nail plate or bed tissue 6-10. Silver nitrate used for any petechial bleeding as necessary. Definitive antifungal treatment options have been reviewed and discussed with the patient. The patient chooses, no pharmaceutical tx - 09181 Keratoma Treatment Parring or Cutting o f Benign Hyperkeratotic Lesion(s) (-57) More than 4 Lesions - The Benign hyperkeratotic lesions, as described above were pared, and/or cut utilizing a sterile 15 blade, tissue nippers, and/or dremel - 25010 Progress Notes * Mati HOPKINS JrDOB: (73 yo M)Acc No.[id number]:01/30/2024 Progress Note Patient:?Mati HOPKINS Jr Provider:?Rubén Arshad DPM :1950???Age:73 Y???Sex:Male Chetan e:01/30/2024 [facility] Pcp:Anup Chacon MD Subjective: * Chief [...] 1. ?Exercise: no. ?Marital status: . 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 * Medications:?TakingAtorvasta tin Calcium 40 MG Tablet [...] reviewed and reconciled with the patient * Allergies:?Rosanne: olya Bailey[Allergies Verified] Objective: * Vitals:?Ht:5 ft [...] use of a nail nipper and/or dremel-type soap grinder, to a more viable healthy nail plate or bed tissue 6-10. Silver nitrate used for any petechial bleeding as necessary. Definitive antifungal treatment options have been reviewed and discussed with the patient. The patient chooses, no pharmaceutical tx - 69692.?Keratoma Treatment:?Parring or Cutting of Benign Hyperkeratotic Lesion(s)?(-57) More than 4 Lesions - The Benign hyperkeratotic lesions, as described above were pared, and/or cut utilizing a sterile 15 blade, tissue nippers, and/or dremel - 19533.? * Procedure Codes:?59994 DEBRI DE NAIL, 6 OR MORE, Modifiers: XS 16780 TRIM SKIN LESIONS, OVER 4, Modifiers: XS [...] Arshad DPM Date:?2023 Generated for Mich duckworth/Patrick/Oren on:?07/23/2024 04:46 PM [...]
== END 2024-07-23 15:01 | disposition home or self-care (01) ==
LOC: HO.HOS 14:02
PROVIDERS: PCP Internal Medicine
DX: S62.631A Displaced fracture of distal phalanx of left index finger, initial encounter for closed fracture (principal); S62.633A Displaced fracture of distal phalanx of left middle finger, initial encounter for closed fracture; S62.635A Displaced fracture of distal phalanx of left ring finger, initial encounter for closed fracture; S61.311A Laceration without foreign body of left index finger with damage to nail, initial encounter; S61.313A Laceration without foreign body of left middle finger with damage to nail, initial encounter; S61.315A Laceration without foreign body of left ring finger with damage to nail, initial encounter; N18.32 Chronic kidney disease, stage 3b; I25.10 Atherosclerotic heart disease of native coronary artery without angina pectoris; E11.9 Type 2 diabetes mellitus without complications
CPT/HCPCS: 99024

== ENCOUNTER → 2024-07-23 14:01 | Outpatient (BNVA) | payer MEDICARE, BC, SELFPAY | PROVIDERS: PCP Internal Medicine | DX: S62.631D Displaced fracture of distal phalanx of left index finger, subsequent encounter for fracture with routine healing (principal); S61.311D Laceration without foreign body of left index finger with damage to nail, subsequent encounter; S62.633D Displaced fracture of distal phalanx of left middle finger, subsequent encounter for fracture with routine healing; S61.313D Laceration without foreign body of left middle finger with damage to nail, subsequent encounter; S62.635D Displaced fracture of distal phalanx of left ring finger, subsequent encounter for fracture with routine healing; S61.315D Laceration without foreign body of left ring finger with damage to nail, subsequent encounter; X58.XXXD Exposure to other specified factors, subsequent encounter; N18.32 Chronic kidney disease, stage 3b; I25.10 Atherosclerotic heart disease of native coronary artery without angina pectoris | CPT/HCPCS: 99212 ==

== ENCOUNTER 2024-07-26 14:27 | Outpatient (AMB) | payer MEDICARE, BC, SELFPAY ==
--- NOTE | 2024-07-26 14:26 | A.SPINEOV_ITS ---
Vital Signs 07/26/24 14:29 Height 5 ft 8 in Weight 204 lb BMI 31.0 Intake Visit Reasons: LBP Intake Note: Mr. 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: No Allergies gabapentin [GABAPENTIN] Allergy (Severe, Verified 07/26/24 14:29) SHORTNESS OF BREATH naproxen [NAPROXEN] Allergy (Unknown, Verified 07/26/24 14:29) KIDNEY SHUT DOWN TO ALL NAPROXEN PRODUCTS Sulfa (Sulfonamide Antibiotics) [SULFA (SULFONAMIDE ANTIBIOTICS)] Allergy (Unknown, Verified 07/26/24 14:29) HIVES sulfur Allergy (Unknown, Verified 07/26/24 14:29) unknown anti-inflammatory Allergy (Unknown, Uncoded 07/09/24 15:12) unknown sulfa Allergy (Unknown, Uncoded 07/09/24 15:12) unknown Physical Exam Vital Signs: BMI result Body Mass Index 31.0 Assessment & Plan Assessment & Plan (1) Lumbar stenosis with neurogenic claudication: Code(s): M48.062 - Spinal stenosis, lumbar region with neurogenic claudication Category: Medical (2) Status post lumbar and lumbosacral fusion by anterior technique: Code(s): Z98.1 - Arthrodesis status Category: Surgical Plan Dear colleague Thank you for referring Mati Barton to the office today with a chief complaint of back pain and bilateral leg pain. HPI: This 74-year-old gentleman had 3 back surgeries done approximately 15-20 years ago. He also had a right knee replaced that resulted in a right drop foot. He comes in complaining of back pain that radiates down both legs with walking and standing. Leaning forward over a shopping cart or sitting down improves the symptoms. He can walk 20-30 feet or stand for 20 minutes before the symptoms start. The following conservative treatment options were tried without success antiinflammatories, tylenol, physical therapy, chiropractic therapy, cortisone shots and acupuncture PMH: Hypertension, type 2 diabetes with an A1c of 6 Bilateral knee surgery, shoulder surgery, 2 eye surgeries Medications: Amlodipine, aspirin, atorvastatin, divalproex, empagliflozin, furosemide, fentanyl bright, losartan, metoprolol, omeprazole, oxycodone 5 mg q.8 hours Allergies: Gabapentin, naproxen, sulfa Social history: Nonsmoker Physical Exam: Pleasant male. He ambulates with a cane in his wearing an EFO for a right footdrop. He can reproduce the pain after short distance of walking in the clinic. Pain radiates from his buttocks down into his legs. Sitting down relieves the symptoms. No other neurological deficits besides the footdrop. Radiological Studies: MRI done at [facility] on 04/29/2024 shows status post L5-S1 fusion and right L4-5 laminotomy. More importantly there is bilateral L4 foraminal stenosis. Impression/Plan: This patient is suffering from neurogenic claudication possibly due to the bilateral L4 foraminal stenosis. It is unclear of the L4-5 segment is fused and therefore I would like to order a CT of the lumbar spine to determine what surgical approach would be appropriate. Thank you for allowing me to participate in your patients care. total time spent was 50 minutes in counseling ,coordination of plan, personal review of imaging, surgical decision making and subsequent plan Jai Liu MD, PhD Spine Fellowship Trained Neurosurgeon Director, [facility] Orders: Orders CT lumbar spine wo IV con Today M48.062 - Spinal stenosis, lumbar region with neurogenic claudication, Z98.1 - Arthrodesis status Coding Level of Care Code New Pt Level 4 (15858) Diagnoses Lumbar stenosis with neurogenic claudication M48.062 Status post lumbar and lumbosacral fusion by anterior technique Z98.1
[2024-07-26 14:29] VITALS: BMI 31.0
--- OUTSIDE RECORDS SUMMARY | 2024-07-26 16:41 | XMS_ITS | Clinical Summary ---
Author Organization [facility] Address [address] [place] [address] Phone Care Team Providers Care Paper Sales Manager Name Role Phone Anup Chacon MD Primary Care Provider [phone] Allergies Active Allergy Reactions Criticality Noted Date [...] 9.4 8.7 - 10.7 mg/dL eGFR Non-Afr Kazakh 36 Total Bilirubin 0.2 MG/DL ALT (SGPT) [...] Most Recently Relevant to Health Maintenance Insurance [facility] MEDICARE [facility] MEDICARE Care Teams Paper Sales Manager Relationship Specialty Start Date End Date Anup Chacon MD [address] [facility] - General 05/18/20
--- OUTSIDE RECORDS SUMMARY | 2024-07-26 16:41 | XMS_ITS ---
Author Organization [facility] Address [address] [place] [address] Care Team Providers Care Boarding Mother Name Role Phone Anup Chacon MD Primary Care Provider Unavail Rubén López Unavailable [phone] Parrish Encounters Encounter Location Date Provider Diagnosis [address] [address] 05/03/2024 Rubén Arshad Plan Of Treatment Next Appt Details Provider Name:Rubén Arshad , 09/20/2024 01:30:00 PM, [address] [place] [address], [address], Progress Notes * Mati HOPKINS JrDOB: (74 yo M)Acc No.[id number]:05/03/2024 Progress Note Patient:?Mati HOPKINS Jr Provider:?Rubén Arshad DPM :1950???Age:73 Y???Sex:Male Chetan e:05/03/2024 Address:[address] [place] [id number] Pcp:Anup Chacon MD Subjective: * Chief Complaints: [...] Arshad DPM Date:?2023 Generated for Mich duckworth/Patrick/Oren on:?07/26/2024 04:41 PM EDT
--- OUTSIDE RECORDS SUMMARY | 2024-07-26 16:42 | XMS_ITS | Patient Health Record ---
Author Organization [facility] Address [address] [place] [address] Care Team Providers Care Cake Batter Mixer Name Role Phone Anup Chacon MD Primary Care Provider Unavail able Rubén Arshad Unavailable [phone] Allergies Allergen (clinical drug ingredient) Drug/Non Drug [...] Problem Acquired hammer toe of right foot (3457905360375972 ) Other hammer toe(s) (acquired), right foot (M20.41) Active confirmed Response to treatment, Improvemen t Problem Acquired hammer toe of left foot (0364340903523220 ) Other hammer toe(s) (acquired), left foot (M20.42) Active confirmed Response to treatment, Improvemen t Problem 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 I (318197612) Type 1 diabetes mellitus with diabetic polyneuropathy (E10.42) Active confirmed Problem 3977893 Right foot drop (M21.371) Active confirmed Vital Signs Blood pressure diastolic 75 mm Hg 05/28/2024 Height 5 ft 8 in in 05/28/2024 Blood pressure systolic 118 mm Hg 05/28/2024 Weight 125 lbs 05/28/2024 BMI 19 kg/m2 05/28/2024 Procedures Procedure Date Ordered Date Performed Result Body Sit e 79086-CQHHWIZ NAIL, 6 OR MORE 08/29/2023 N/A 60022-TTAF SKIN LESIONS, OVER 4 08/29/2023 N/A 64284-ZICBZWG NAIL, 6 OR MORE 11/14/2023 N/A 11526-Cjwwnwsv Plate 11/14/2023 N/A 22581-KCIZ SKIN LESIONS, OVER 4 11/14/2023 N/A 91634-LPVERSF NAIL, 6 OR MORE 01/30/2024 N/A 62741-NNCB SKIN LESIONS, OVER 4 01/30/2024 N/A 36134-KFHMKHN NAIL, 6 OR MORE 05/28/2024 N/A 38223-ALCI SKIN LESIONS, OVER 4 05/28/2024 N/A Encounters Encounter Location Date Provider Diagnosis [address] [address] 08/29/2023 Rubén Arshad Type 1 diabetes mellitus with diabetic polyneuropathy E10.42 ; Onychomycosis B35.1 and Xerosis of skin L85.[address] [address] 11/14/2023 Rubén Arshad Type 1 diabetes mellitus with diabetic polyneuropathy E10.42 ; Onychomycosis B35.1 ; Xerosis of skin L85.3 and Ingrown nail L60.[address] [address] 01/30/2024 Rubénindra Arshad Type 1 diabetes mellitus with diabetic polyneuropathy E10.42 ; Tinea unguium B35.1 ; Other hammer toe(s) (acquired), right foot M20.41 and Other hammer toe(s) (acquired), left foot M20.[address] [address] 05/28/2024 Rubén Arshad Type 1 diabetes mellitus with diabetic polyneuropathy E10.42 ; Tinea unguium B35.1 ; Other hammer toe(s) (acquired), right foot M20.41 and Other hammer toe(s) (acquired), left foot M20.42 [facility] [address] [address] 07/31/2023 Rubén Arshad Assessments Encounter Date Diagnosis [...] Treatment Pending Test Test Name Order Date 25668-SLJGTQY NAIL, 6 OR MORE 02/23/2021 26637-TFPHOEH NAIL, 6 OR MORE 05/25/2021 44238-NTMCHUK NAIL, 6 OR MORE 08/03/2021 66814-RGRSZPP NAIL, 6 OR MORE 10/19/2021 23641-EZJOXZA NAIL, 6 OR MORE 01/04/2022 01898-CPETRKM NAIL, 6 OR MORE 08/19/2022 57515-QWTTEBK NAIL, 6 OR MORE 11/01/2022 55045-JBZHQKS NAIL, 6 OR MORE 01/13/2023 92878-WJCHLGF NAIL, 6 OR MORE 08/29/2023 05263-YBCOYIK NAIL, 6 OR MORE 11/14/2023 21271-VABDBPI NAIL, 6 OR MORE 01/30/2024 23259-MGEURIL NAIL, 6 OR MORE 05/28/2024 84421-HIHXOWL NAIL, 1-5 03/17/2020 24575-XWKGSHY NAIL, 1-5 01/07/2020 68195-TIQQXRJ NAIL, 1-5 01/17/2017 41135-TXGCQRL NAIL, 1-5 04/18/2017 66297-IXNGTIA NAIL, 1-5 07/25/2017 79852-TMJBEAU NAIL, 1-5 10/24/2017 17099-ERKNGSF NAIL, 1-5 01/23/2018 10877-WPVTDDQ NAIL, 1-5 05/11/2018 33948-XLPWICH NAIL, 1-5 08/10/2018 45728-ESQDYBU NAIL, 1-5 10/30/2018 30522-PHOJAJL NAIL, 1-5 02/05/2019 43057-WNDATQY NAIL, 1-5 05/21/2019 43502-MDSWEFJ NAIL, 1-5 07/23/2019 06644-CVNUMPB NAIL, 1-5 10/01/2019 46839-Mfzgyszt Plate 05/11/2018 24144-Kugxkptv Plate 01/23/2018 32345-Ppbtmfnz Plate 11/14/2023 21009-Izbxtyfj Plate Each Additional 47353-CFFU SKIN LESIONS, OVER 4 05/11/19 19 70164-FTDP SKIN LESIONS, OVER 4 08/11/19 08153-SOKA SKIN LESIONS, OVER 4 10/31/19 19 32531-MERD SKIN LESIONS, OVER 4 07/23/19 20 40899-BYKO SKIN LESIONS, OVER 4 02/06/20 19 33587-PEDO SKIN LESIONS, OVER 4 05/21/19 20 56584-BWAX SKIN LESIONS, OVER 4 03/17/20 50746-EKRI SKIN LESIONS, OVER 4 11/14/19 03484-ZSPX SKIN LESIONS, OVER 4 05/28/19 25 39792-RBFP SKIN LESIONS, OVER 4 01/30/20 24 69283-FFLT SKIN LESIONS, OVER 4 08/29/19 24 95430-DXEB SKIN LESIONS, OVER 4 01/14/20 23 90975-RWMS SKIN LESIONS, OVER 4 11/02/19 23 26052-OFKZ SKIN LESIONS, OVER 4 08/20/19 65129-VMLB SKIN LESIONS, OVER 4 10/01/19 20 91252-UDDX SKIN LESIONS, OVER 4 01/07/20 20 78130-ZHGE SKIN LESIONS, OVER 4 02/24/20 21 95418-QFRH SKIN LESIONS, OVER 4 01/05/20 22 24071-QJMC SKIN LESIONS, OVER 4 10/20/19 15582-EODF SKIN LESIONS, OVER 4 08/04/19 22 78819-ABFY SKIN LESIONS, OVER 4 05/25/19 22 08232-NJWS SKIN LESIONS, 2 TO 4 01/24/20 18 17452-AUUN SKIN LESIONS, 2 TO 4 07/26/19 18 90070-IXRJ SKIN LESIONS, 2 TO 4 10/25/19 18 10856-WRTN SKIN LESIONS, 2 TO 4 01/18/20 17 56582-DHPI SKIN LESIONS, 2 TO 4 04/18/20 17 F5482-PTMQRTRL DYSTROPHIC NAILS ANY # O7869-PXGGIWSI DYSTROPHIC NAILS ANY # Y1174-OIZVLVZD DYSTROPHIC NAILS ANY # D8716-FIEISRDE DYSTROPHIC NAILS ANY # B0606-WMJGLDSE DYSTROPHIC NAILS ANY # Z5005-BZSVGGQT DYSTROPHIC NAILS ANY # Y9407-RYHENVPL DYSTROPHIC NAILS ANY # T0450-URNRTOLZ DYSTROPHIC NAILS ANY # L5820-NEQGSNGL DYSTROPHIC NAILS ANY # W8421-IEJRMVRL DYSTROPHIC NAILS ANY # Q2517-HPTRMZBU DYSTROPHIC NAILS ANY # L2342-QZEPASNA DYSTROPHIC NAILS ANY # X4277-YNHDXVQD DYSTROPHIC NAILS ANY # Y7028-QURFQZBC DYSTROPHIC NAILS ANY # Next Appt Details Provider Name:Rubén Arshad , 09/20/2024 01:30:00 PM, [address] [place], [address], Insurance Providers Payer Name Payer Address Payer Phone Subscriber Number Group Number Insured Name Patient Relationship to Insured Coverage Start Date Coverage End Date Medicare National [employer] [address] [place] [address] [id number] Mati Barton Self - patient is the insured 3 [facility] [address] [place] [address] [id number] Mati Barton Self - patient is the insured 1 Medical (General) History Medical History History ICD Code Arthritis Back,Hip,and Knee pain type II diabetes High blood pressure Numbness Measles Mumps Chicken pox Joint implants/screws drop foot - Right Surgical History Surgery Date(Month/Year) knee surgery, left eye surgery rotator cuff tear repair 12/19/2018 back stimulator surgery 09/22/21
--- OUTSIDE RECORDS SUMMARY | 2024-07-26 16:42 | XMS_ITS ---
Author Organization [facility] Address [address] [address] Care Team Providers Care Interior Mechanic Name Role Phone Anup Chacon MD Primary Care Provider Unavail able Rubén Arshad Unavailable [phone] Allergies Allergen (clinical drug ingredient) Drug/Non Drug [...] Ordered Date Performed Result Body Sit e 60054-IAKKYCF NAIL, 6 OR MORE 05/28/2024 N/A 48155-XZXZ SKIN LESIONS, OVER 4 05/28/2024 N/A Encounters Encounter Location Date Provider Diagnosis [facility] [place] [address] [place] [address] 05/28/2024 Rubén Arshad Type 1 diabetes mellitus [...] Treatment Pending Test Test Name Order Date 27042-ZAHBBTK NAIL, 6 OR MORE 05/28/2024 82849-YSYQ SKIN LESIONS, OVER 4 05/28/19 25 Next Appt Details Follow Up: prn, Reason: Provider Name:Rubén Arshad , 09/20/2024 01:30:00 PM, [address] [place] [address], [phone], Procedure Notes * Category Sub-Category Detail Notes [...] use of a nail nipper and/or dremel-type crystal grinder, to a more viable healthy nail [...] to maintain effectiveness in symptomatic relief - 67247 Keratoma Treatment Parring or Cutting o f [...] instrumentation by the physician of record - 06599 Progress Notes * Mati HOPKINS JrDOB: (73 yo M)Acc No.[id number]:05/28/2024 Progress Note Patient:?Mati HOPKINS Jr Provider:?Rubén Arshad DPM :1950???Age:73 Y???Sex:Male Chetan e:05/28/2024 Address:[address] [place], [place] [phone] Pcp:Anup Chacon MD Subjective: * Chief Complaints: [...] 1. ?Exercise: no. ?Marital status: . 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 ???Drug/Alcohol:?AUDIT-C (Standard)?Did you have a drink [...] use of a nail nipper and/or dremel-type crystal grinder, to a more viable healthy nail [...] to maintain effectiveness in symptomatic relief - 96002.?Keratoma Treatment:?Parring or Cutting of Benign Hyperkeratotic Lesion(s)?(-56) [...] instrumentation by the physician of record - 61569.? * Procedure Codes:?12226 DEBRI DE NAIL, 6 OR MORE, Modifiers: XS 24000 TRIM SKIN LESIONS, OVER 4, Modifiers: XS [...] Provider:?Rubén Arshad DPM Date:?2024 Generated for Mich duckworth/Patrick/eTransmitting on:?07/26/2024 04:41 PM EDT History and Physical Notes * [...]
--- OUTSIDE RECORDS SUMMARY | 2024-07-26 16:42 | XMS_ITS ---
Author Organization [facility] Address [address] [place] [address] Care Team Providers Care Accounts Payable Or Receivable Clerk Name Role Phone Anup Chacon MD Primary Care Provider Unavail able Rubén Arshad Unavailable [phone] Allergies Allergen (clinical drug ingredient) Drug/Non Drug [...] Ordered Date Performed Result Body Sit e 90293-SVFOASB NAIL, 6 OR MORE 01/30/2024 N/A 20282-HQRA SKIN LESIONS, OVER 4 01/30/2024 N/A Encounters Encounter Location Date Provider Diagnosis [facility] [address] [address] 01/30/2024 Rubén Arshad Type 1 diabetes mellitus [...] INSTRUCTIONS.pdf) Pending Test Test Name Order Date 67793-NCAWNEN NAIL, 6 OR MORE 01/30/2024 30296-AFDJ SKIN LESIONS, OVER 4 01/30/20 Next Appt Details Follow Up: prn, Reason: Provider Name:Rubén Arshad , 09/20/2024 01:30:00 PM, [address] [place] [address], [phone], Procedure Notes * Category Sub-Category Detail Notes Debride Nail 6-10 Nail debridement Performance o f this nail treatment by a nonprofessional would put this patients foot and overall health at risk. Therefore, nail debridement was performed extensively to reduce/remove overall nail length, girth, thickness, subungual debris, and necrotic tissue, by manual and/or electrical means through the use of a nail nipper and/or dremel-type convex grinder, to a more viable healthy nail plate or bed tissue 6-10. Silver nitrate used for any petechial bleeding as necessary. Definitive antifungal treatment options have been reviewed and discussed with the patient. The patient chooses, no pharmaceutical tx - 67135 Keratoma Treatment Parring or Cutting o f Benign Hyperkeratotic Lesion(s) (-57) More than 4 Lesions - The Benign hyperkeratotic lesions, as described above were pared, and/or cut utilizing a sterile 15 blade, tissue nippers, and/or dremel - 97211 Progress Notes * Mati HOPKINSB: (73 yo M)Acc No.[id number]:01/30/2024 Progress Note Patient:?Mati HOPKINS Jr Provider:?Rubén Arshad DPM :1950???Age:73 Y???Sex:Male Chetan e:01/30/2024 [address] [facility] Pcp:Anup Chacon MD Subjective: * Chief [...] 1. ?Exercise: no. ?Marital status: . 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 * Medications:?TakingAtorvasta tin Calcium 40 MG [...] use of a nail nipper and/or dremel-type convex grinder, to a more viable healthy nail plate or bed tissue 6-10. Silver nitrate used for any petechial bleeding as necessary. Definitive antifungal treatment options have been reviewed and discussed with the patient. The patient chooses, no pharmaceutical tx - 00774.?Keratoma Treatment:?Parring or Cutting of Benign Hyperkeratotic Lesion(s)?(-57) More than 4 Lesions - The Benign hyperkeratotic lesions, as described above were pared, and/or cut utilizing a sterile 15 blade, tissue nippers, and/or dremel - 57568.? * Procedure Codes:?39475 DEBRI DE NAIL, 6 OR MORE, Modifiers: XS 75558 TRIM SKIN LESIONS, OVER 4, Modifiers: XS [...] DPM Date:?2023 Generated for Mich duckworth/Patrick/Oren on:?07/26/2024 04:42 PM EDT History and Physical Notes * [...]
== END 2024-07-26 15:10 | disposition home or self-care (01) ==
LOC: HO.HNS 14:27
PROVIDERS: PCP Internal Medicine; Referring Provider Internal Medicine; Visit Provider Neurological Surgery
DX: M48.062 Spinal stenosis, lumbar region with neurogenic claudication (principal); Z98.1 Arthrodesis status
CPT/HCPCS: 99204

== ENCOUNTER → 2024-07-26 14:27 | Outpatient (BNVA) | payer MEDICARE, BC, SELFPAY | PROVIDERS: PCP Internal Medicine; Referring Provider Internal Medicine; Visit Provider Neurological Surgery | DX: M48.062 Spinal stenosis, lumbar region with neurogenic claudication (principal); Z98.1 Arthrodesis status | CPT/HCPCS: 99202 ==

== ENCOUNTER 2024-08-07 13:50 | Outpatient (AMB) | payer MEDICARE, BC, SELFPAY ==
[2024-08-07 14:00] VITALS: BMI 31.0
--- NOTE | 2024-08-07 14:00 | A.OFFVIS_ITS ---
Vital Signs 08/07/24 14:00 Height 5 ft 8 in Weight 204 lb BMI 31.0 Intake Visit Reasons: OV-LT Finger tip lac,tib partial amputation Intake Note: Mati is a right hand dominant male who presents today for a follow up of his left index laceration/fx and middle finger fx, DOI 07/04/24. Patient reports he has mild pain that comes and goes. 1. Left index finger open distal phalanx fracture 2. Left index fingertip laceration, through the nailbed 3. Left middle finger open distal phalanx fracture 4. Left middle fingertip laceration, through the nailbed 5. Left ring finger open distal phalanx fracture 6. Left ring fingertip laceration, through the nailbed From [employer] injury, DOI: 07/04/24. Allergies gabapentin [GABAPENTIN] Allergy (Severe, Verified 08/07/24 14:01) SHORTNESS OF BREATH naproxen [NAPROXEN] Allergy (Unknown, Verified 08/07/24 14:01) KIDNEY SHUT DOWN TO ALL NAPROXEN PRODUCTS Sulfa (Sulfonamide Antibiotics) [SULFA (SULFONAMIDE ANTIBIOTICS)] Allergy (Unknown, Verified 08/07/24 14:01) HIVES sulfur Allergy (Unknown, Verified 08/07/24 14:01) unknown anti-inflammatory Allergy (Unknown, Uncoded 08/07/24 14:01) unknown sulfa Allergy (Unknown, Uncoded 08/07/24 14:01) unknown HPI HPI OV-LT Finger tip lac,tib partial amputation: Details: Mati is a right hand dominant male who presents today for a follow up of his left index laceration/fx and middle finger fx, DOI 07/04/24. Patient reports he has mild pain that comes and goes, but is overall very satisfied with how his treatment is going. 1. Left index finger open distal phalanx fracture 2. Left index fingertip laceration, through the nailbed 3. Left middle finger open distal phalanx fracture 4. Left middle fingertip laceration, through the nailbed 5. Left ring finger open distal phalanx fracture 6. Left ring fingertip laceration, through the nailbed From tablesaw injury, DOI: 07/04/24. [facility] Medical History (Updated 07/26/24 @ 15:29 by Jai Liu MD, PhD) Pes equinus, acquired Complex regional pain syndrome i of left lower limb Osteoarthritis of right knee Chronic, continuous use of opioids PTSD (post-traumatic stress disorder) Anxiety and depression Peripheral neuropathy Arthritis Back pain Diabetes GERD (gastroesophageal reflux disease) COPD (chronic obstructive pulmonary disease) Sleep apnea On beta sean at home Elevated cholesterol CHF (congestive heart failure) Myocardial infarction CAD (coronary artery disease) HTN (hypertension) Acute medial meniscus tear of right knee Internal derangement of right knee Internal derangement of left knee Degenerative arthritis of knee, bilateral Surgical History History of back surgery History of cardiac cath Hx of sinus surgery Hx of eye surgery History of penile implant History of open reduction and internal fixation (ORIF) procedure Hx of arthroscopy of left knee Hx of repair of left rotator cuff Hx of bariatric surgery Social History Patient Tobacco Use Status: Former Tobacco user Current occupational status: retired 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 Review of Systems Const All systems reviewed & are unremarkable except as noted in HPI and below Physical Exam Vital Signs: BMI result Body Mass Index 31.0 Const General: cooperative, healthy appearing and no acute distress Orientation/consciousness: patient oriented x3 HEENT Head: Yes normocephalic and Yes atraumatic Eyes EOM: EOMs intact bilaterally Resp Effort & Inspection: normal respiratory effort and able to speak in complete sentences Cardio Jugular venous distension: no JVD Skin General skin exam: turgor normal Rashes: no rashes Neuro General: patient oriented x3 Extrem Other: Evaluation of Left Upper Extremity: The patient is alert, oriented, and in no acute distress Neuro: Median, Ulnar, Radial nerves motor and sensory intact. Cap refill is brisk and sensation was intact to the tips of all injured digits ROM: With encouragement he can make a fist and extend all his digits Mild radial deviation of the tip of the ring finger. Middle and index finger alignment was satisfactory No malrotation seen General: Complex lacerations to the tips of the left index middle and ring fingers, healing well These lacerations appear to involve at least part of the nail bed in each of these digits. Wounds appear dry, no drainage. No erythema or evidence of infection at this time Psych Appearance: grossly normal Affect: normal affect Attitude: cooperative Assessment & Plan Assessment & Plan (1) Fracture of distal phalanx of left index finger: Code(s): S62.631A - Displaced fracture of distal phalanx of left index finger, initial encounter for closed fracture Category: Medical (2) Fracture of distal phalanx of left middle finger: Code(s): S62.633A - Displaced fracture of distal phalanx of left middle finger, initial encounter for closed fracture Category: Medical (3) Fracture of distal phalanx of left ring finger: Code(s): S62.635A - Displaced fracture of distal phalanx of left ring finger, initial encounter for closed fracture Category: Medical (4) Laceration of left index finger with damage to nail: Code(s): S61.311A - Laceration without foreign body of left index finger with damage to nail, initial encounter Category: Medical (5) Laceration of left middle finger with damage to nail: Code(s): S61.313A - Laceration without foreign body of left middle finger with damage to nail, initial encounter Category: Medical (6) Laceration of left ring finger with damage to nail: Code(s): S61.315A - Laceration without foreign body of left ring finger with damage to nail, initial encounter Category: Medical (7) Stage 3b chronic kidney disease (CKD): Code(s): N18.32 - Chronic kidney disease, stage 3b Category: Medical (8) CAD (coronary artery disease): Code(s): I25.10 - Atherosclerotic heart disease of redding coronary artery without angina pectoris Category: Medical (9) Diabetes: Comment: IDDM FBS usually 125-130 Code(s): E11.9 - Type 2 diabetes mellitus without complications Category: Medical Plan Assessment & Plan: 1. Left index finger open distal phalanx fracture 2. Left index fingertip laceration, through the nailbed 3. Left middle finger open distal phalanx fracture 4. Left middle fingertip laceration, through the nailbed 5. Left ring finger open distal phalanx fracture 6. Left ring fingertip laceration, through the nailbed From a tablesaw injury, DOI: 07/04/24 I educated him about this condition These wounds were washed out and reapproximated with sutures in the emergency department. I discussed operative and non-operative treatment options I think we can manage this conservatively, and he is in agreement The wounds were cleaned and new dressings were applied. Finger splints were also applied to the distal aspect of all 3 injured digits. His radial aspect of the ring finger was splinted to correct the slight radial deviation No further antibiotic therapy necessary I explained the signs and symptoms of infection, if the patient develops any new or worsening erythema, drainage, pain, or warmth they should contact the clinic or attend the ED. Patient was educated he can also continue washing lacerations with soap and water in the sink or shower, but should continue to avoid submerging I discussed activity modifications, he is to lift nothing heavier than a cellphone for the next 5 weeks He will work on gentle finger ROM exercises at home, he should focus on MCP & PIP joint motion Follow-up in 2 weeks, sooner with any acute concerns Coding Level of Care Code Global (79189) Diagnoses Fracture of distal phalanx of left index finger S62.631A Fracture of distal phalanx of left middle finger S62.633A Fracture of distal phalanx of left ring finger S62.635A Laceration of left index finger with damage to nail S61.311A Laceration of left middle finger with damage to nail S61.313A Laceration of left ring finger with damage to nail S61.315A Stage 3b chronic kidney disease (CKD) N18.32 CAD (coronary artery disease) I25.10 Diabetes E11.9
--- OUTSIDE RECORDS SUMMARY | 2024-08-07 16:33 | XMS_ITS ---
Author Organization [facility] [place] Address [address] [place] [address] Care Team Providers Care Client Finance Analyst Name Role Phone Anup Chacon MD Primary Care Provider Unavail able Rubén Arshad Unavailable [phone] Allergies Allergen (clinical drug ingredient) Drug/Non Drug [...] Ordered Date Performed Result Body Sit e 75522-QPMIIKJ NAIL, 6 OR MORE 05/28/2024 N/A 11957-SFHC SKIN LESIONS, OVER 4 05/28/2024 N/A Encounters Encounter Location Date Provider Diagnosis [facility] [place] [address] [place] [address] 05/28/2024 Rubén Arshad Type 1 diabetes mellitus [...] Treatment Pending Test Test Name Order Date 49473-NTVYVUX NAIL, 6 OR MORE 05/28/2024 78880-OGDB SKIN LESIONS, OVER 4 05/28/19 25 Next Appt Details Follow Up: prn, Reason: Provider Name:Rubén Costellounier , 09/20/2024 01:30:00 PM, [address] [place] [address], [phone], Provider Name:Rubén Vidal CostelloPavithra , 10/29/2024 10:00:00 AM, [address] [place] [address], [phone], Procedure Notes * Category Sub-Category Detail Notes [...] use of a nail nipper and/or dremel-type burr grinder, to a more viable healthy nail [...] to maintain effectiveness in symptomatic relief - 89430 Keratoma Treatment Parring or Cutting o f [...] power dremel instrumentation by the physician of [facility] - 12006 Progress Notes * Mati HOPKINS JrDOB: (73 yo M)Acc No.[id number]:05/28/2024 Progress Note Patient:?Mati HOPKINS Jr Provider:?Rubén Arshad DPM :1950???Age:73 Y???Sex:Male Chetan e:05/28/2024 Address:[address] [place], [place] [phone] Pcp:Anup Chacon MD Subjective: * Chief Complaints: [...] 1. ?Exercise: no. ?Marital status: . 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 ???Drug/Alcohol:?AUDIT-C (Standard)?Did you have a drink [...] use of a nail nipper and/or dremel-type burr grinder, to a more viable healthy nail [...] to maintain effectiveness in symptomatic relief - 51998.?Keratoma Treatment:?Parring or Cutting of Benign Hyperkeratotic Lesion(s)?(-56) [...] instrumentation by the physician of record - 42718.? * Procedure Codes:?41425 DEBRI DE NAIL, 6 OR MORE, Modifiers: XS 89024 TRIM SKIN LESIONS, OVER 4, Modifiers: XS [...] Arshad DPM Date:?2024 Generated for Mich duckworth/Patrick/Oren on:?08/07/2024 04:33 PM EDT History and Physical Notes * HPI (History of Present Illness) Category Sub-Category Detail Notes Category Not es Toe pain Treatments: Rx shoes At Risk footcare Pt States Last PCP Visit: Date: 5 Examination Category Sub-Category Detail Notes Category Not [...] MTH (s), 1, B/L, Plantar, Heel(s),B/L Orthopedic FOOTWEAR EVALUATION: good condit ion, exhibit proper fit and accommodation for pedal [...]
--- OUTSIDE RECORDS SUMMARY | 2024-08-07 16:33 | XMS_ITS ---
Author Organization [facility] Address [address] [place] [address] Care Team Providers Care Returned Goods Repairer Name Role Phone Anup Chacon MD Primary Care Provider Unavail Rubén López Unavailable [phone] Parrish Encounters Encounter Location Date Provider Diagnosis [address] [address] 05/03/2024 Rubén Arshad Plan Of Treatment Next Appt Details Provider Name:Rubén Arshad , 09/20/2024 01:30:00 PM, [address] [place] [address], [phone], Provider Name:Rubén Arshad , 10/29/2024 10:00:00 AM, [address] [place] [address], [phone], Progress Notes * Mati HOPKINS JrDOB: (74 yo M)Acc No.[id number]:05/03/2024 Progress Note Patient:?Mati HOPKINS Jr Provider:?Rubén Arshad DPM :1950???Age:73 Y???Sex:Male Chetan e:05/03/2024 Address:[address] [place] [phone] Pcp:Anup Chacon MD Subjective: * Chief Complaints: * ???1. Dr Parrish. * Medical History:? Objective: * Vitals:? Assessment: Plan: * Treatment: * Images: * The named appointment provid er may or may not be the originator of this progress note, and it is not deemed complete until electronically signed by the appointment provider. Sign off status: Pending * Provider:?Rubén Arshad DPM Date:?2023 Generated for Mich duckworth/Patrick/Oren on:?08/07/2024 04:33 PM EDT
--- OUTSIDE RECORDS SUMMARY | 2024-08-07 16:33 | XMS_ITS | Clinical Summary ---
Author Organization [facility] Address [address] [place] [address] Phone Care Team Providers Care Fermenter Operator Name Role Phone Anup Chacon MD Primary Care Provider [phone] Allergies Active Allergy Reactions Criticality Noted Date [...] 9.4 8.7 - 10.7 mg/dL eGFR Non-Afr Libyan 36 Total Bilirubin 0.2 MG/DL ALT (SGPT) [...] Most Recently Relevant to Health Maintenance Insurance [facility] MEDICARE [facility] MEDICARE Care Teams Fermenter Operator Relationship Specialty Start Date End Date Anup Chacon MD [address] [facility] - General 05/18/20
--- OUTSIDE RECORDS SUMMARY | 2024-08-07 16:34 | XMS_ITS ---
Author Organization [facility] [place] Address [address] [place] [address] Care Team Providers Care Parts Control Clerk Name Role Phone Anup Chacon MD Primary Care Provider Unavail able Rubén Arshad Unavailable [phone] Allergies Allergen (clinical drug ingredient) Drug/Non Drug [...] Ordered Date Performed Result Body Sit e 48862-QMFJAHB NAIL, 6 OR MORE 01/30/2024 N/A 67743-RDUI SKIN LESIONS, OVER 4 01/30/2024 N/A Encounters Encounter Location Date Provider Diagnosis [facility] [address] [address] 01/30/2024 Rubén Arshad Type 1 diabetes mellitus [...] INSTRUCTIONS.pdf) Pending Test Test Name Order Date 61148-QJGDZVR NAIL, 6 OR MORE 01/30/2024 90493-AVGC SKIN LESIONS, OVER 4 01/30/20 Next Appt Details Follow Up: prn, Reason: Provider Name:Rubén Arshad , 09/20/2024 01:30:00 PM, [address] [place] [address], [phone], Provider Name:Rubén Arshad , 10/29/2024 10:00:00 AM, [address] [place] [address], [phone], Procedure Notes * Category Sub-Category Detail Notes [...] The patient chooses, no pharmaceutical tx - 38678 Keratoma Treatment Parring or Cutting o f Benign Hyperkeratotic Lesion(s) (-57) More than 4 Lesions - The Benign hyperkeratotic lesions, as described above were pared, and/or cut utilizing a sterile 15 blade, tissue nippers, and/or dremel - 94013 Progress Notes * Mati HOPKINS JrDOB: (73 yo M)Acc No.[id number]:01/30/2024 Progress Note Patient:?Mati HOPKINS Jr Provider:?Rubén Arshad DPM :1950???Age:73 Y???Sex:Male Chetan e:01/30/2024 Address:[address] [place], [place] [phone] Pcp:Anup Chacon MD Subjective: * Chief Complaints: [...] no. ?Marital status: . 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 * Medications:?TakingAtorvasta tin Calcium 40 MG [...] properties exacerbate patients foot/toe deformity.?Vascular: ?DP PULSES (B):?1/4, B/L.?PT PULSES (B):?05/11, B/L.?CAPILLARY FILL TIME:?delayed, all digits, B/L.?TROPHIC CONDITION-TEXTURE/ELASTICITY/TURGOR/HAIR GROWTH (B):?decreased, B/L.?TEMPERTURE GRADIENT (C):?decreased, cool to cool, proximal to distal, B/L.?PIGMENTATION:?mottled, B/L.?EDEMA (C):?1/, non-pitting, without aching pain, B/L, Leg(s), Ankle(s).?General [...] The patient chooses, no pharmaceutical tx - 50106.?Keratoma Treatment:?Parring or Cutting of Benign Hyperkeratotic Lesion(s)?(-57) More than 4 Lesions - The Benign hyperkeratotic lesions, as described above were pared, and/or cut utilizing a sterile 15 blade, tissue nippers, and/or dremel - 70997.? * Procedure Codes:?35694 DEBRI DE NAIL, 6 OR MORE, Modifiers: XS 50406 TRIM SKIN LESIONS, OVER 4, Modifiers: XS [...] Provider:?Rubén Arshad DPM Date:?2023 Generated for Mich duckworth/Patrick/eTransmitting on:?08/07/2024 04:33 PM EDT History and Physical [...] structure, No Charcot collapse/destruction noted at [facility] FOOTWEAR EVALUATION: worn, OT were inspe cted and noted to be severely worn , [...]
--- OUTSIDE RECORDS SUMMARY | 2024-08-07 16:34 | XMS_ITS | Patient Health Record ---
Author Organization [facility] Address [address] [facility] [address] Care Team Providers Care General Contractor Name Role Phone Anup Chacon MD Primary Care Provider Unavail able Rubén Arshad Unavailable [phone] Allergies Allergen (clinical drug ingredient) Drug/Non Drug [...] Problem Acquired hammer toe of right foot (9999233493770510 ) Other hammer toe(s) (acquired), right foot (M20.41) Active confirmed Response to treatment, Improvemen t Problem Acquired hammer toe of left foot (9605256432744553 ) Other hammer toe(s) (acquired), left foot (M20.42) Active confirmed Response to treatment, Improvemen t Problem 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 I (703761734) Type 1 diabetes mellitus with diabetic polyneuropathy (E10.42) Active confirmed Problem 0571053 Right foot drop (M21.371) Active confirmed Vital Signs Blood pressure diastolic 75 mm Hg 05/28/2024 Height 5 ft 8 in in 05/28/2024 Blood pressure systolic 118 mm Hg 05/28/2024 Weight 125 lbs 05/28/2024 BMI 19 kg/m2 05/28/2024 Procedures Procedure Date Ordered Date Performed Result Body Sit e 15763-HPBCCDH NAIL, 6 OR MORE 08/29/2023 N/A 74669-ZEOO SKIN LESIONS, OVER 4 08/29/2023 N/A 96127-USKVQHW NAIL, 6 OR MORE 11/14/2023 N/A 74707-Rwnzfyvm Plate 11/14/2023 N/A 62280-PASN SKIN LESIONS, OVER 4 11/14/2023 N/A 33776-ESTXRGM NAIL, 6 OR MORE 01/30/2024 N/A 58730-CZKH SKIN LESIONS, OVER 4 01/30/2024 N/A 76131-TCLFETA NAIL, 6 OR MORE 05/28/2024 N/A 02349-SERW SKIN LESIONS, OVER 4 05/28/2024 N/A Encounters Encounter Location Date Provider Diagnosis [address] [address] 08/29/2023 Rubén Arshad Type 1 diabetes mellitus with diabetic polyneuropathy E10.42 ; Onychomycosis B35.1 and Xerosis of skin L85.[address] [address] 11/14/2023 Rubén Arshad Type 1 diabetes mellitus with diabetic polyneuropathy E10.42 ; Onychomycosis B35.1 ; Xerosis of skin L85.3 and Ingrown nail L60.[address] [address] 01/30/2024 Rubénindra Arshad Type 1 diabetes mellitus with diabetic polyneuropathy E10.42 ; Tinea unguium B35.1 ; Other hammer toe(s) (acquired), right foot M20.41 and Other hammer toe(s) (acquired), left foot M20.[address] [address] 05/28/2024 Rubén Arshad Type 1 diabetes mellitus [...] Treatment Pending Test Test Name Order Date 97838-ENJDMBJ NAIL, 6 OR MORE 02/23/2021 11593-PBCDAGY NAIL, 6 OR MORE 05/25/2021 78757-PYXCZRK NAIL, 6 OR MORE 08/03/2021 31365-NDLAAUV NAIL, 6 OR MORE 10/19/2021 21349-TSGNGDR NAIL, 6 OR MORE 01/04/2022 79029-TBQVIYY NAIL, 6 OR MORE 08/19/2022 77738-DFPZCMH NAIL, 6 OR MORE 11/01/2022 79038-DMRAZMH NAIL, 6 OR MORE 01/13/2023 30931-BYPDDGS NAIL, 6 OR MORE 08/29/2023 92762-TXIMDRX NAIL, 6 OR MORE 11/14/2023 60329-VQQNRTE NAIL, 6 OR MORE 01/30/2024 26013-KVDTVFT NAIL, 6 OR MORE 05/28/2024 86677-FGASHIJ NAIL, 1-5 03/17/2020 86032-ZWHSLDL NAIL, -5 01/07/2020 18850-VIYHVRW NAIL, -5 01/17/2017 68115-BJIUDQA NAIL, -5 04/18/2017 37640-VKMIRBP NAIL, -5 07/25/2017 93668-PRCKSWJ NAIL, -5 10/24/2017 72896-YVIIXZK NAIL, -5 01/23/2018 28555-OMXQHFE NAIL, -5 05/11/2018 39111-YZXKMJC NAIL, -5 08/10/2018 49062-AQRINSP NAIL, -5 10/30/2018 50535-LHAQGTT NAIL, -5 02/05/2019 28622-NFYILKH NAIL, -5 05/21/2019 05754-XENSSEK NAIL, -5 07/23/2019 15566-PBULRRG NAIL, -5 10/01/2019 35540-Zlzwjuio Plate 05/11/2018 01516-Lfaaynyf Plate 01/23/2018 83087-Trjoobhn Plate 11/14/2023 23052-Luyudqgr Plate Each Additional 65720-MTFQ SKIN LESIONS, OVER 4 05/11/19 38370-AIJD SKIN LESIONS, OVER 4 08/11/19 70399-LLEV SKIN LESIONS, OVER 4 10/31/19 19 19117-CEVJ SKIN LESIONS, OVER 4 07/23/19 20 49360-MLPW SKIN LESIONS, OVER 4 02/06/20 10512-FHDL SKIN LESIONS, OVER 4 05/21/19 69524-DHCD SKIN LESIONS, OVER 4 11/10/20 20 99238-HDUE SKIN LESIONS, OVER 4 11/14/19 24 31192-IFNM SKIN LESIONS, OVER 4 05/28/19 58223-YQGT SKIN LESIONS, OVER 4 01/30/20 24 74390-HIML SKIN LESIONS, OVER 4 08/29/19 24 77288-ZZYI SKIN LESIONS, OVER 4 01/14/20 23 00440-CNST SKIN LESIONS, OVER 4 11/02/19 99951-RIXR SKIN LESIONS, OVER 4 08/20/19 23 47606-YQVQ SKIN LESIONS, OVER 4 10/01/19 20 48526-XXCR SKIN LESIONS, OVER 4 01/07/20 24392-ZFSA SKIN LESIONS, OVER 4 02/24/20 42103-BVIS SKIN LESIONS, OVER 4 01/05/20 59948-UGLD SKIN LESIONS, OVER 4 10/20/19 03571-QEPS SKIN LESIONS, OVER 4 08/04/19 12673-QAAW SKIN LESIONS, OVER 4 05/25/19 17964-GEEQ SKIN LESIONS, 2 TO 4 01/24/20 18 10504-VEWN SKIN LESIONS, 2 TO 4 07/26/19 18 88049-LDHJ SKIN LESIONS, 2 TO 4 10/25/19 18 85665-EYPH SKIN LESIONS, 2 TO 4 01/18/20 17 09562-NGSD SKIN LESIONS, 2 TO 4 04/18/20 17 J0232-DDOUBPEH DYSTROPHIC NAILS ANY # R0551-LJSBLARY DYSTROPHIC NAILS ANY # T1281-TJAZOHUI DYSTROPHIC NAILS ANY # I5087-FAEABFPI DYSTROPHIC NAILS ANY # A0325-NFIWIDRM DYSTROPHIC NAILS ANY # J9763-XCXKXRHJ DYSTROPHIC NAILS ANY # S2531-VKFHXZRB DYSTROPHIC NAILS ANY # W3351-XXIBFIOH DYSTROPHIC NAILS ANY # F1285-QUCWDPAT DYSTROPHIC NAILS ANY # D5208-IFNBNNAN DYSTROPHIC NAILS ANY # S0337-TZIJFNQZ DYSTROPHIC NAILS ANY # F1341-GGFXDNSF DYSTROPHIC NAILS ANY # T6990-QWFDNLMO DYSTROPHIC NAILS ANY # A2123-MCUAEQPS DYSTROPHIC NAILS ANY # Next Appt Details Provider Name:Rubén Arshad , 09/20/2024 01:30:00 PM, [address] [place], [address], Provider Name:Rubén Arshad , 10/29/2024 10:00:00 AM, [address] [facility], [place], [address], Insurance Providers Payer Name Payer Address Payer Phone Subscriber Number Group Number Insured Name Patient Relationship to Insured Coverage Start Date Coverage End Date Medicare [employer] [address] [place] [address] [id number] Mati Barton Self - patient is the insured 3 [facility] [address] [place] [address] [id number] Mati Barton Self - patient is the insured 1 Medical (General) History Medical History History ICD Code Arthritis Back,Hip,and Knee pain type II diabetes High blood pressure Numbness Measles Mumps Chicken pox Joint implants/screws drop foot - Right Surgical History Surgery Date(Month/Year) knee surgery, left eye surgery rotator cuff tear repair 12/19/2018 back stimulator surgery 09/22/21
== END 2024-08-07 14:16 | disposition home or self-care (01) ==
LOC: HO.HOS 13:50
PROVIDERS: PCP Internal Medicine
DX: S62.631A Displaced fracture of distal phalanx of left index finger, initial encounter for closed fracture (principal); S62.633A Displaced fracture of distal phalanx of left middle finger, initial encounter for closed fracture; S62.635A Displaced fracture of distal phalanx of left ring finger, initial encounter for closed fracture; S61.311A Laceration without foreign body of left index finger with damage to nail, initial encounter; S61.313A Laceration without foreign body of left middle finger with damage to nail, initial encounter; S61.315A Laceration without foreign body of left ring finger with damage to nail, initial encounter; N18.32 Chronic kidney disease, stage 3b; I25.10 Atherosclerotic heart disease of native coronary artery without angina pectoris; E11.9 Type 2 diabetes mellitus without complications
CPT/HCPCS: 99024

== ENCOUNTER → 2024-08-07 13:50 | Outpatient (BNVA) | payer MEDICARE, BC, SELFPAY | PROVIDERS: PCP Internal Medicine | DX: S62.631D Displaced fracture of distal phalanx of left index finger, subsequent encounter for fracture with routine healing (principal); S62.633D Displaced fracture of distal phalanx of left middle finger, subsequent encounter for fracture with routine healing; S62.635D Displaced fracture of distal phalanx of left ring finger, subsequent encounter for fracture with routine healing; S61.311D Laceration without foreign body of left index finger with damage to nail, subsequent encounter; S61.313D Laceration without foreign body of left middle finger with damage to nail, subsequent encounter; S61.315D Laceration without foreign body of left ring finger with damage to nail, subsequent encounter; E11.22 Type 2 diabetes mellitus with diabetic chronic kidney disease; N18.32 Chronic kidney disease, stage 3b; I25.10 Atherosclerotic heart disease of native coronary artery without angina pectoris | CPT/HCPCS: 99212 ==

== ENCOUNTER 2024-08-21 13:41 | Outpatient (AMB) | payer MEDICARE, BC, SELFPAY ==
[2024-08-21 13:44] VITALS: BMI 31.0
--- NOTE | 2024-08-21 13:44 | A.OFFVIS_ITS ---
Vital Signs 08/21/24 13:44 Height 5 ft 8 in Weight 204 lb BMI 31.0 Handedness Right Intake Visit Reasons: OV-LT Finger tip lac, tib partial amputation Intake Note: Mati is a 74 year old right hand dominant male who presents today for a follow up of his left hand. On 08/07/24 he was advised to work on gentle finger ROM exercises at home and should focus on MCP & PIP joint motion. Patient reports he feels stiffness and tenderness at his finger tips of the left hand. Tingling and loss of sensation at finger tips and some sensitivity with palpitation. 1. Left index finger open distal phalanx fracture 2. Left index fingertip laceration, through the nailbed 3. Left middle finger open distal phalanx fracture 4. Left middle fingertip laceration, through the nailbed 5. Left ring finger open distal phalanx fracture 6. Left ring fingertip laceration, through the nailbed From tablesaw injury, DOI: 07/04/24. Allergies gabapentin [GABAPENTIN] Allergy (Severe, Verified 08/21/24 13:47) SHORTNESS OF BREATH naproxen [NAPROXEN] Allergy (Unknown, Verified 08/21/24 13:47) KIDNEY SHUT DOWN TO ALL NAPROXEN PRODUCTS Sulfa (Sulfonamide Antibiotics) [SULFA (SULFONAMIDE ANTIBIOTICS)] Allergy (Unknown, Verified 08/21/24 13:47) HIVES sulfur Allergy (Unknown, Verified 08/21/24 13:47) unknown anti-inflammatory Allergy (Unknown, Uncoded 08/21/24 13:47) unknown sulfa Allergy (Unknown, Uncoded 08/21/24 13:47) unknown HPI HPI OV-LT Finger tip lac, tib partial amputation: Details: Mati is a 74 year old right hand dominant male who presents today for a follow up of his left hand. On 08/07/24 he was advised to work on gentle finger ROM exercises at home and should focus on MCP & PIP joint motion. Patient reports he feels stiffness and tenderness at his finger tips of the left hand. Tingling and loss of sensation at finger tips and some sensitivity with palpitation. 1. Left index finger open distal phalanx fracture 2. Left index fingertip laceration, through the nailbed 3. Left middle finger open distal phalanx fracture 4. Left middle fingertip laceration, through the nailbed 5. Left ring finger open distal phalanx fracture 6. Left ring fingertip laceration, through the nailbed From tablesaw injury, DOI: 07/04/24. [facility] Medical History Pes equinus, acquired Complex regional pain syndrome i of left lower limb Osteoarthritis of right knee Chronic, continuous use of opioids PTSD (post-traumatic stress disorder) Anxiety and depression Peripheral neuropathy Arthritis Back pain Diabetes GERD (gastroesophageal reflux disease) COPD (chronic obstructive pulmonary disease) Sleep apnea On beta sean at home Elevated cholesterol CHF (congestive heart failure) Myocardial infarction CAD (coronary artery disease) HTN (hypertension) Acute medial meniscus tear of right knee Internal derangement of right knee Internal derangement of left knee Degenerative arthritis of knee, bilateral Surgical History History of back surgery History of cardiac cath Hx of sinus surgery Hx of eye surgery History of penile implant History of open reduction and internal fixation (ORIF) procedure Hx of arthroscopy of left knee Hx of repair of left rotator cuff Hx of bariatric surgery Social History Patient Tobacco Use Status: Former Tobacco user Current occupational status: retired 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 Review of Systems Const All systems reviewed & are unremarkable except as noted in HPI and below Physical Exam Vital Signs: BMI result Body Mass Index 31.0 Const General: cooperative, healthy appearing and no acute distress Orientation/consciousness: patient oriented x3 HEENT Head: Yes normocephalic and Yes atraumatic Eyes EOM: EOMs intact bilaterally Resp Effort & Inspection: normal respiratory effort and able to speak in complete sentences Cardio Jugular venous distension: no JVD Skin General skin exam: turgor normal Rashes: no rashes Neuro General: patient oriented x3 Extrem Other: Evaluation of Left Upper Extremity: The patient is alert, oriented, and in no acute distress Neuro: Median, Ulnar, Radial nerves motor and sensory intact. Cap refill is brisk and sensation was intact to the tips of all injured digits ROM: With encouragement he can make a fist and extend all his digits Mild radial deviation of the tip of the ring finger. Middle and index finger alignment was satisfactory No malrotation seen General: Complex lacerations to the tips of the left index middle and ring fingers, healing well, These lacerations appear to involve at least part of the nail bed in each of these digits. Wounds appear dry, no drainage. No erythema or evidence of infection at this time Psych Appearance: grossly normal Affect: normal affect Attitude: cooperative Assessment & Plan Assessment & Plan (1) Fracture of distal phalanx of left index finger: Code(s): S62.631A - Displaced fracture of distal phalanx of left index finger, initial encounter for closed fracture Category: Medical (2) Fracture of distal phalanx of left middle finger: Code(s): S62.633A - Displaced fracture of distal phalanx of left middle finger, initial encounter for closed fracture Category: Medical (3) Fracture of distal phalanx of left ring finger: Code(s): S62.635A - Displaced fracture of distal phalanx of left ring finger, initial encounter for closed fracture Category: Medical (4) Laceration of left index finger with damage to nail: Code(s): S61.311A - Laceration without foreign body of left index finger with damage to nail, initial encounter Category: Medical (5) Laceration of left middle finger with damage to nail: Code(s): S61.313A - Laceration without foreign body of left middle finger with damage to nail, initial encounter Category: Medical (6) Laceration of left ring finger with damage to nail: Code(s): S61.315A - Laceration without foreign body of left ring finger with damage to nail, initial encounter Category: Medical (7) Stage 3b chronic kidney disease (CKD): Code(s): N18.32 - Chronic kidney disease, stage 3b Category: Medical (8) CAD (coronary artery disease): Code(s): I25.10 - Atherosclerotic heart disease of [place] coronary artery without angina pectoris Category: Medical (9) Diabetes: Comment: IDDM FBS usually 125-130 Code(s): E11.9 - Type 2 diabetes mellitus without complications Category: Medical Plan Assessment & Plan: 1. Left index finger open distal phalanx fracture 2. Left index fingertip laceration, through the nailbed 3. Left middle finger open distal phalanx fracture 4. Left middle fingertip laceration, through the nailbed 5. Left ring finger open distal phalanx fracture 6. Left ring fingertip laceration, through the nailbed From a tablesaw injury, DOI: 07/04/24 I educated him about this condition These wounds were washed out and reapproximated with sutures in the emergency department. I discussed operative and non-operative treatment options I think we can manage this conservatively, and he is in agreement No further antibiotic therapy necessary I explained the signs and symptoms of infection, if the patient develops any new or worsening erythema, drainage, pain, or warmth they should contact the clinic or attend the ED. Patient was educated he can also continue washing lacerations with soap and water in the sink or shower, but should continue to avoid submerging I discussed activity modifications, he is to lift nothing heavier than a cellphone for the next 4 weeks He will work on gentle finger ROM exercises at home, he should focus on MCP & PIP joint motion Follow-up in 4 weeks, sooner with any acute concerns Coding Level of Care Code Global (80606) Diagnoses Fracture of distal phalanx of left index finger S62.631A Fracture of distal phalanx of left middle finger S62.633A Fracture of distal phalanx of left ring finger S62.635A Laceration of left index finger with damage to nail S61.311A Laceration of left middle finger with damage to nail S61.313A Laceration of left ring finger with damage to nail S61.315A Stage 3b chronic kidney disease (CKD) N18.32 CAD (coronary artery disease) I25.10 Diabetes E11.9
--- OUTSIDE RECORDS SUMMARY | 2024-08-21 16:22 | XMS_ITS | Clinical Summary ---
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 Immunizations Immunization Administration Dates Next Due Influenza (IM) Preservative [...] 07/21/2021, 06/01/2021, Additional history exists Influenza Vaccine (Season Ended) 2025 03/18/2019, 03/12/2019, 05/11/2018, Additional history exists Pneumococcal Vaccine: 50+ Years Completed 09/15/2016, 05/12/2015, 03/08/2009, Additional history exists Pneumococcal Vaccine: Peds (0 to 5 Years) and At-Risk Patients (6 to 49 Years) Discontinued 09/15/2016, 05/12/2015, 03/08/2009, Additional history exists Hepatitis [...] 9.4 8.7 - 10.7 mg/dL eGFR Non-Afr Eritrean 36 Total Bilirubin 0.2 MG/DL ALT (SGPT) [...] Most Recently Relevant to Health Maintenance Insurance [facility] Medicare [facility] Medicare Care Teams Urban Planning Professor Relationship Specialty Start Date End Date Anup Chacon MD [facility] [address] [place], [place] PCP - General 05/18/20
== END 2024-08-21 14:14 | disposition home or self-care (01) ==
LOC: HO.HOS 13:42
PROVIDERS: PCP Internal Medicine
DX: S62.631A Displaced fracture of distal phalanx of left index finger, initial encounter for closed fracture (principal); S62.633A Displaced fracture of distal phalanx of left middle finger, initial encounter for closed fracture; S62.635A Displaced fracture of distal phalanx of left ring finger, initial encounter for closed fracture; S61.311A Laceration without foreign body of left index finger with damage to nail, initial encounter; S61.313A Laceration without foreign body of left middle finger with damage to nail, initial encounter; S61.315A Laceration without foreign body of left ring finger with damage to nail, initial encounter; N18.32 Chronic kidney disease, stage 3b; I25.10 Atherosclerotic heart disease of native coronary artery without angina pectoris; E11.9 Type 2 diabetes mellitus without complications
CPT/HCPCS: 99024

== ENCOUNTER → 2024-08-21 13:41 | Outpatient (BNVA) | payer MEDICARE, BC, SELFPAY | PROVIDERS: PCP Internal Medicine | DX: S62.631D Displaced fracture of distal phalanx of left index finger, subsequent encounter for fracture with routine healing (principal); S62.633D Displaced fracture of distal phalanx of left middle finger, subsequent encounter for fracture with routine healing; S62.635D Displaced fracture of distal phalanx of left ring finger, subsequent encounter for fracture with routine healing; S61.311D Laceration without foreign body of left index finger with damage to nail, subsequent encounter; S61.313D Laceration without foreign body of left middle finger with damage to nail, subsequent encounter; S61.315D Laceration without foreign body of left ring finger with damage to nail, subsequent encounter; E11.22 Type 2 diabetes mellitus with diabetic chronic kidney disease; N18.32 Chronic kidney disease, stage 3b; I25.10 Atherosclerotic heart disease of native coronary artery without angina pectoris | CPT/HCPCS: 99212 ==

== ENCOUNTER 2024-09-12 16:35 | Outpatient (REF) | payer MEDICARE, BC, SELFPAY ==
--- NOTE | ~2024-09-12 | CT_ITS ---
CLINICAL HISTORY: Z98.1 - Arthrodesis status CT lumbar spine without contrast. COMPARISON: None FINDINGS: Straightening of the normal lumbar lordosis. Vertebral body heights are maintained. Penile pump present air present along the right. Partially visualized colonic diverticulosis without evidence of diverticulitis. Spinal stimulator device along the left iliac crest. Cholelithiasis. No pericholecystic inflammatory changes within the visualized gallbladder. Suture material present along the greater curvature of the stomach. IVC filter present. Right renal cystic lesions measuring up to 3.1 cm. Left renal cystic lesions measuring up to 2.5 cm. Moderate aortoiliac atherosclerotic vascular calcifications. L5-S1: Fusion of the vertebral bodies and posterior elements. Mild right neural foraminal narrowing. L4-L5: Fusion of the vertebral bodies and posterior elements. Moderate bilateral neural foraminal narrowing. L3-L4: Facet joint arthrosis. Mild bilateral neural foraminal narrowing. L2-L3: Anterior marginal osteophytes. Facet joint arthrosis. Mild bilateral neural foraminal narrowing. L1-L2: Anterior marginal osteophytes. Loss of disc space height. Vacuum disc phenomena. Facet joint arthrosis. No significant neural foraminal narrowing. IMPRESSION: 1. No acute osseous or alignment abnormality of the lumbar spine. 2. Straightening of the normal lumbar lordosis. 3. Advanced multilevel lumbar spondylosis most pronounced in the lower lumbar spine. This document has been electronically signed by: Ricardo Sparks MD on 09/13/2024 12:51:31
--- OUTSIDE RECORDS SUMMARY | 2024-09-12 16:37 | XMS_ITS | Clinical Summary ---
Author Organization [facility] Address [address] [place] [address] Phone Care Team Providers Care Industrial Editor Name Role Phone Anup Chacon MD Primary Care Provider [phone] Allergies Active Allergy Reactions Criticality Noted Date [...] 9.4 8.7 - 10.7 mg/dL eGFR Non-Afr Togolese 36 Total Bilirubin 0.2 MG/DL ALT (SGPT) [...] Most Recently Relevant to Health Maintenance Insurance [facility] Medicare [facility] Medicare Care Teams Industrial Editor Relationship Specialty Start Date End Date Anup Chacon MD [facility] [address] [place], [place] PCP - General 05/18/20
== END 2024-09-12 16:36 | disposition home or self-care (01) ==
LOC: HO.CT 16:35
PROVIDERS: PCP Internal Medicine; Visit Provider Neurological Surgery
DX: M48.062 Spinal stenosis, lumbar region with neurogenic claudication (principal); Z98.1 Arthrodesis status
CPT/HCPCS: 72131

== ENCOUNTER → 2024-09-12 16:36 | Outpatient (BNV) | payer MEDICARE, BC, SELFPAY | PROVIDERS: PCP Internal Medicine; Visit Provider Radiology Diagnostic Radiology | DX: M47.816 Spondylosis without myelopathy or radiculopathy, lumbar region (principal) | CPT/HCPCS: 72131 ==

== ENCOUNTER 2024-11-13 15:25 | Outpatient (AMB) | payer MEDICARE, BC, SELFPAY ==
--- NOTE | 2024-11-13 15:31 | A.SPINEOV_ITS ---
Intake Visit Reasons: discuss surgery Intake Note: Mr. Barton is here today to Discuss surgery Louver Door Assembler Required: No Allergies gabapentin (GABAPENTIN) Allergy (Severe, Verified 08/21/24 13:47) SHORTNESS OF BREATH naproxen (NAPROXEN) Allergy (Unknown, Verified 08/21/24 13:47) KIDNEY SHUT DOWN TO ALL NAPROXEN PRODUCTS Sulfa (Sulfonamide Antibiotics) (SULFA (SULFONAMIDE ANTIBIOTICS)) Allergy (Unknown, Verified 08/21/24 13:47) HIVES sulfur Allergy (Unknown, Verified 08/21/24 13:47) unknown anti-inflammatory Allergy (Unknown, Uncoded 08/21/24 13:47) unknown sulfa Allergy (Unknown, Uncoded 08/21/24 13:47) unknown Assessment & Plan Assessment & Plan (1) Lumbar stenosis with neurogenic claudication: Code(s): M48.062 - Spinal stenosis, lumbar region with neurogenic claudication Category: Medical Plan Dear colleague, On 11/13/2024, I saw for follow-up Mati Barton to review a CT of the lumbar spine and to discuss surgical options for his neurogenic claudication symptoms. The CT scan shows fusion of the L4-5 and L5-S1 segment and more importantly it confirms the severe bilateral L4 foraminal stenosis, which I think it is responsible for his bilateral leg pain. I reviewed the imaging with the patient and his family and offered him a bilateral L4 foraminotomy. I described the procedure that will be done in day surgery. He wants to proceed. He is scheduled for 12/12/2024. I spent 20 minutes in his consult to review imaging and discussing plan of care. Jai Liu MD, PhD Spine Fellowship Trained Neurosurgeon Director, [facility] Coding Level of Care Code Est Pt Level 3 (19410) Diagnoses Lumbar stenosis with neurogenic claudication M48.062
--- OUTSIDE RECORDS SUMMARY | 2024-11-13 15:34 | XMS_ITS | Clinical Summary ---
Author Organization [facility] Address [address] [place] [address] Phone Care Team Providers Care Mechanical Reliability Engineer Name Role Phone Anup Chacon MD Primary Care Provider [phone] Allergies Active Allergy Reactions Criticality Noted Date [...] 06/01/2021, Additional history exists Influenza Vaccine (#1) 2025 9, 03/12/2019, 05/11/2018, Additional history exists Pneumococcal [...] 9.4 8.7 - 10.7 mg/dL eGFR Non-Afr Lithuanian 36 Total Bilirubin 0.2 MG/DL ALT (SGPT) [...] us Historical Provider LAB BLOOD ORDERABLES Deepa amber Result from Last 3 Months or Most Recently Relevant to Health Maintenance Insurance [facility] Medicare [facility] Medicare Care Teams Mechanical Reliability Engineer Relationship Specialty Start Date End Date Anup Chacon MD [facility] [address] [place] [address] [address] [place], [place] PCP - General 05/18/20
== END 2024-11-13 16:23 | disposition home or self-care (01) ==
LOC: HO.HNS 15:26
PROVIDERS: PCP Internal Medicine; Visit Provider Neurological Surgery
DX: M48.062 Spinal stenosis, lumbar region with neurogenic claudication (principal)
CPT/HCPCS: 99213

== ENCOUNTER → 2024-11-13 15:25 | Outpatient (BNVA) | payer MEDICARE, BC, SELFPAY | PROVIDERS: PCP Internal Medicine; Visit Provider Neurological Surgery | DX: M48.062 Spinal stenosis, lumbar region with neurogenic claudication (principal) | CPT/HCPCS: 99212 ==

== ENCOUNTER 2024-11-22 14:50 | Outpatient (AMB) | payer MEDICARE, BC, SELFPAY ==
--- OUTSIDE RECORDS SUMMARY | 2024-11-22 14:52 | XMS_ITS | Clinical Summary ---
Author Organization [facility] Address [address] [place] [address] Phone Care Team Providers Care Systems Engineering Manager Name Role Phone Anup Chacon MD Primary Care Provider [phone] Allergies Active Allergy Reactions Criticality Noted Date [...] 9.4 8.7 - 10.7 mg/dL eGFR Non-Afr [place]guillan 36 Total Bilirubin 0.2 MG/DL ALT (SGPT) [...] Most Recently Relevant to Health Maintenance Insurance [facility] Medicare [facility] Medicare Care Teams Systems Engineering Manager Relationship Specialty Start Date End Date Anup Chacon MD [facility] [address] [place] [address] [address] [place], [place] PCP - General 05/18/20
--- NOTE | 2024-11-22 14:54 | HO.NEPHOV ---
Vital Signs 11/22/24 14:55 Height 5 ft 8 in Weight 196 lb BMI 29.8 BP 100/60 Blood Pressure Location Rt brachial Position Sitting Intake Visit Reasons: 4mon follow-up w/labs-Voicemail full Reclamation Supervisor Required: No Accompanied by: Self / Same As Patient Allergies gabapentin (GABAPENTIN) Allergy (Severe, Verified 11/22/24 14:55) SHORTNESS OF BREATH naproxen (NAPROXEN) Allergy (Unknown, Verified 11/22/24 14:55) KIDNEY SHUT DOWN TO ALL NAPROXEN PRODUCTS Sulfa (Sulfonamide Antibiotics) (SULFA (SULFONAMIDE ANTIBIOTICS)) Allergy (Unknown, Verified 11/22/24 14:55) HIVES sulfur Allergy (Unknown, Verified 11/22/24 14:55) unknown anti-inflammatory Allergy (Unknown, Uncoded 08/21/24 13:47) unknown sulfa Allergy (Unknown, Uncoded 08/21/24 13:47) unknown HPI Comments Details: Juan Carlos was seen in follow-up of his chronic kidney disease secondary to diabetic nephropathy. He is hypertensive with good blood pressure control on current medications. He has a right foot drop and is wearing a brace. He denies any chest pain, shortness of breath, paroxysmal nocturnal dyspnea, orthopnea, pedal edema, urinary symptoms, nausea, vomiting, diarrhea. He does not take any nonsteroidal anti-inflammatory medications and maintains good hydration. He has no orthostatic symptoms. He claims to be tolerating his medications including Jardiance [facility] Medical History Pes equinus, acquired Complex regional pain syndrome i of left lower limb Osteoarthritis of right knee Chronic, continuous use of opioids PTSD (post-traumatic stress disorder) Anxiety and depression Peripheral neuropathy Arthritis Back pain Diabetes GERD (gastroesophageal reflux disease) COPD (chronic obstructive pulmonary disease) Sleep apnea On beta sean at home Elevated cholesterol CHF (congestive heart failure) Myocardial infarction CAD (coronary artery disease) HTN (hypertension) Acute medial meniscus tear of right knee Internal derangement of right knee Internal derangement of left knee Degenerative arthritis of knee, bilateral Surgical History History of back surgery History of cardiac cath Hx of sinus surgery Hx of eye surgery History of penile implant History of open reduction and internal fixation (ORIF) procedure Hx of arthroscopy of left knee Hx of repair of left rotator cuff Hx of bariatric surgery Social History Patient Tobacco Use Status: Former Tobacco user Current occupational status: retired 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 Review of Systems Const All systems reviewed & are unremarkable except as noted in HPI and below Physical Exam Const General: comfortable and no acute distress Orientation/consciousness: patient oriented x3 HEENT Head: Yes normocephalic Mouth: Normal oral and palatal mucosa present Eyes EOM: EOMs intact bilaterally Neck Neck: Yes supple Resp Auscultation: clear to auscultation bilaterally Cardio Jugular venous distension: no JVD Rate: regular rate GI Palpation (GI): Soft to palpation Auscultation: normal bowel sounds General: Yes no CVA tenderness Back/Spine/Pelvis Back: no CVA tenderness Skin General skin exam: no rashes or lesions noted Neuro General: patient oriented x3 and moves all extremities Assessment & Plan Assessment & Plan (1) HTN (hypertension): Code(s): I10 - Essential (primary) hypertension Category: Medical Qualifiers: Hypertension type: primary hypertension Qualified Code(s): I10 - Essential (primary) hypertension (2) CKD stage G3b/A3, GFR 30-44 and albumin creatinine ratio >300 mg/g: Code(s): N18.32 - Chronic kidney disease, stage 3b Category: Medical (3) Diabetic nephropathy: Code(s): E11.21 - Type 2 diabetes mellitus with diabetic nephropathy Category: Medical Qualifiers: Diabetes mellitus type: type 2 Qualified Code(s): E11.21 - Type 2 diabetes mellitus with diabetic nephropathy Plan Juan Carlos has stage III B CKD at baseline. He has diabetic nephropathy. He is tolerating angiotensin receptor sean and Jardiance. His volume status is optimal. His blood pressure is at goal. I encouraged him to maintain good hydration, keep his blood sugar at goal, avoid nonsteroidal anti-inflammatories and maintain his blood pressure on target. I did not make any medication changes today rather ordered follow-up blood work for continued management. All questions answered. Follow-up given. Orders: Orders Electrolytes 3 Months E11.21 - Type 2 diabetes mellitus with diabetic nephropathy Creatinine 3 Months E11.21 - Type 2 diabetes mellitus with diabetic nephropathy Blood Urea Nitrogen 3 Months E11.21 - Type 2 diabetes mellitus with diabetic nephropathy Coding Level of Care Code Est Pt Level 4 (26338) Diagnoses Primary hypertension I10 Hypertension type: primary hypertension CKD stage G3b/A3, GFR 30-44 and albumin creatinine ratio >300 mg/g N18.32 Diabetic nephropathy associated with type 2 diabetes mellitus E11.21 Diabetes mellitus type: type 2
[2024-11-22 14:55] VITALS: BP 100/60; BMI 29.8
== END 2024-11-22 15:05 | disposition home or self-care (01) ==
LOC: HO.HKA 14:50
PROVIDERS: PCP Internal Medicine; Visit Provider Internal Medicine Nephrology
DX: I10 Essential (primary) hypertension (principal); N18.32 Chronic kidney disease, stage 3b; E11.21 Type 2 diabetes mellitus with diabetic nephropathy
CPT/HCPCS: 99214

== ENCOUNTER → 2024-11-22 14:50 | Outpatient (BNVA) | payer MEDICARE, BC, SELFPAY | PROVIDERS: PCP Internal Medicine; Visit Provider Internal Medicine Nephrology | DX: E11.21 Type 2 diabetes mellitus with diabetic nephropathy (principal); I12.9 Hypertensive chronic kidney disease with stage 1 through stage 4 chronic kidney disease, or unspecified chronic kidney disease; N18.32 Chronic kidney disease, stage 3b; Z79.899 Other long term (current) drug therapy; Z79.84 Long term (current) use of oral hypoglycemic drugs | CPT/HCPCS: 99212 ==

== ENCOUNTER 2024-12-05 | Outpatient (REF) | payer MEDICARE, BC, SELFPAY ==
--- OUTSIDE RECORDS SUMMARY | 2024-11-14 14:03 | XMS_ITS | Clinical Summary ---
Author Organization [facility] Address [address] [place] [address] Phone Care Team Providers Care Gantry Crane Operator Name Role Phone Anup Chacon MD Primary Care Provider [phone] Allergies Active Allergy Reactions Criticality Noted Date [...] 9.4 8.7 - 10.7 mg/dL eGFR Non-Afr Citizen Of [place] 36 Total Bilirubin 0.2 MG/DL ALT (SGPT) [...] Most Recently Relevant to Health Maintenance Insurance [facility] Medicare [facility] Medicare Care Teams Gantry Crane Operator Relationship Specialty Start Date End Date Anup Chacon MD [facility] [address] [place] [address] [address] [place], [place] PCP - General 05/18/20
--- NOTE | 2024-12-05 | ECG_ITS ---
Test Reason : cad, mi Blood Pressure : */* mmHG Vent. Rate : 53 BPM Atrial Rate : 53 BPM P-R Int : 168 ms QRS Dur : 98 ms QT Int : 448 ms P-R-T Axes : 83 -19 61 degrees QTcB Int : 420 ms Sinus bradycardia with Premature atrial complexes Otherwise normal ECG When compared with ECG of 05-Sep-2023 00:17, Premature atrial complexes are now Present Referred By: Anne Leary Electronically Signed By: ANA MAHAN MD
[2024-12-05 10:24] VITALS: BP 161/72; PULSE 57; RESP 20; O2SAT 99; BMI 28.9
--- NOTE | 2024-12-05 10:33 | HO.ANESPROP2 ---
HPI - Anesthesia Eval Consult details Narrative: 74yo M for Bilateral L4 Foraminotomy, pending cardiac eval (preop echo with [facility]) No recent illness No CP/SOB with minimal activity - has Right foot drop ~ 1 year - wears brace Previously followed [facility] cardiology for remote NC, CAD s/p stent 2005, CHF. Has not been seen since 2020. Has future appointment in ? February 2025 COPD: No inhalers CKD: [place] [facility] [place]. Stable at 11/2024 office visit with good bp control. DM: [facility]. FBS ~ 110 [place]: CPAP QHS GERD: ppi controls Anesthesia Pre-Procedure Meds Is the patient on any of the following meds?: GLP1/DPP4 and SGLT2 Inhib PMFSH Active Problems Active Problems: All Active Problems (Updated 12/05/24 @ 10:09 by Pippa Mcguire RN) Status post lumbar and lumbosacral fusion by anterior technique (Acute) Lumbar stenosis with neurogenic claudication (Acute) Laceration of left ring finger with damage to nail (Acute) Laceration of left middle finger with damage to nail (Acute) Laceration of left index finger with damage to nail (Acute) Fracture of distal phalanx of left ring finger (Acute) Fracture of distal phalanx of left middle finger (Acute) Fracture of distal phalanx of left index finger (Acute) Stage 3b chronic kidney disease (CKD) (Acute) CKD stage G3b/A3, GFR 30-44 and albumin creatinine ratio >300 mg/g (Acute) Diabetic nephropathy (Acute) Bursitis of right shoulder (Acute) Arthritis of right glenohumeral joint (Acute) Acromioclavicular joint arthritis (Acute) Upper respiratory tract infection (Acute) Malfunction of penile prosthesis (Acute) Balanitis (Acute) Osteoarthritis of right knee (Acute) S/P medial meniscectomy of right knee (Acute) Acute medial meniscus tear of right knee (Acute) Internal derangement of right knee (Acute) Internal derangement of left knee (Acute) CAD (coronary artery disease) (Acute) Diabetes (Acute) HTN (hypertension) (Acute) Pes equinus, acquired (Acute) Complex regional pain syndrome i of left lower limb (Acute) Osteoarthritis of right knee (Acute) Degenerative arthritis of knee, bilateral (Acute) Past Medical History Medical History (Updated 12/05/24 @ 10:09 by Pippa Mcguire, RN) Chronic renal insufficiency Depression Pes equinus, acquired Complex regional pain syndrome i of left lower limb Osteoarthritis of right knee Chronic, continuous use of opioids PTSD (post-traumatic stress disorder) Anxiety and depression Peripheral neuropathy Arthritis Back pain Diabetes GERD (gastroesophageal reflux disease) COPD (chronic obstructive pulmonary disease) Sleep apnea On beta sean at home Elevated cholesterol CHF (congestive heart failure) Myocardial infarction CAD (coronary artery disease) HTN (hypertension) Degenerative arthritis of knee, bilateral Family History Family history of problems with anesthesia: No Surgical History Surgical History (Updated 12/05/24 @ 10:14 by Pippa Mcguire, RN) History of esophagogastroduodenoscopy (EGD) S/P placement of nerve stimulator Hx of arthroscopy of right knee History of back surgery History of cardiac cath Hx of sinus surgery Hx of eye surgery History of penile implant History of open reduction and internal fixation (ORIF) procedure Hx of arthroscopy of left knee Hx of repair of left rotator cuff Hx of bariatric surgery History of Problems with Anesthesia: No Social History Social History Are you a primary grounds caretaker to a significant other at home: No Do you presently have visiting nurse or other home services: No Patient Tobacco Use Status: Former Tobacco user Tobacco use type: Cigarette Years Smoked: 15 Current occupational status: retired 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 Meds Allergies Allergy/AdvReac Type Severity Reaction Status Date / Time gabapentin (GABAPENTIN) Allergy Severe SHORTNESS Verified 11/22/24 14:55 OF BREATH naproxen (NAPROXEN) Allergy Severe KIDNEY Verified 12/04/24 10:17 SHUT DOWN TO ALL NAPROXEN PRODUCTS Sulfa (Sulfonamide Allergy Intermediate HIVES Verified 12/04/24 10:17 Antibiotics) (SULFA (SULFONAMIDE ANTIBIOTICS)) Home Medications ?Medication ?Instructions ?Recorded ?Confirmed ?Last Taken ?Type amlodipine 5 mg tablet 1 tab PO QAM 04/09/20 12/05/24 04/15/20 08:00 History atorvastatin 80 mg tablet 1 tab PO QAM 04/09/20 12/05/24 Unknown History brimonidine 0.2 %-timolol 0.5 % 1 drp ophthalmic (eye) BID 04/09/20 12/05/24 Unknown History eye drops (Combigan) fenofibrate 54 mg tablet 1 tab PO BEDTIME 04/09/20 12/05/24 Unknown History furosemide 40 mg tablet (Lasix) 40 mg PO BID PRN Edema 04/09/20 12/05/24 Unknown History nitroglycerin 0.4 mg sublingual 1 tab sublingual NEEDED PRN 04/09/20 12/05/24 Unknown History tablet Chest Pain omeprazole 20 mg capsule,delayed 20 mg PO BEDTIME 04/09/20 12/05/24 04/15/20 08:00 History release ropinirole 3 mg tablet 1 tab PO BEDTIME PRN Restless 04/09/20 12/05/24 Unknown History Leg(S) aspirin 81 mg tablet,delayed 81 mg PO QAM 08/08/23 12/05/24 Unknown History release bimatoprost 0.03 % drops with 1 drp topical BEDTIME 08/08/23 12/05/24 Unknown History applicator, eyelash base carboxymethylcellulose sodium 0.5 1 drp ophthalmic (eye) QID 08/08/23 12/05/24 Unknown History % eye drops in a dropperette cyclosporine 0.05 % eye drops 1 drp ophthalmic (eye) BID 08/08/23 12/05/24 Unknown History divalproex 500 mg tablet,delayed 500 mg PO QAM 08/08/23 12/05/24 Unknown History release empagliflozin 25 mg tablet 12.5 mg PO QAM 08/08/23 12/05/24 Unknown History insulin glargine-yfgn 100 unit/mL 15 unit subcut QAM 08/08/23 12/05/24 Unknown History (3 mL) subcutaneous pen metoprolol succinate 200 mg 200 mg PO QAM 08/08/23 12/05/24 Unknown History tablet,extended release 24 hr semaglutide 1 mg/dose (4 mg/3 mL) 2 mg subcut QWEEK 08/08/23 12/05/24 Unknown History subcutaneous pen injector timolol 0.5 % eye drops 1 drp ophthalmic (eye) BID 08/08/23 12/05/24 Unknown History trazodone 100 mg tablet 50 mg PO BEDTIME 08/08/23 12/05/24 Unknown History ubrogepant 100 mg tablet 100 mg PO DAILY PRN Migraine 08/08/23 12/05/24 Unknown History Headache vortioxetine 20 mg tablet 20 mg PO QAM 08/08/23 12/05/24 Unknown History oxycodone-acetaminophen 10 mg-325 1 tab PO Q4H PRN Pain 08/21/24 12/05/24 Unknown History mg tablet insulin aspart U-100 100 unit/mL 7 unit subcut TIDAC 12/05/24 12/05/24 Unknown History (3 mL) subcutaneous pen (Novolog FlexPen U-100 Insulin aspart) Exam Height,Weight and Vital Signs: Height 5 ft 8 in Weight 86.183 kg Last Vital Signs Pulse 57 12/05/24 10:24 Resp 20 12/05/24 10:24 BP 161/72 H 12/05/24 10:24 Pulse Ox 99 12/05/24 10:24 O2 Del Method Room Air 12/05/24 10:24 Pertinent Lab Results Pertinent Lab Results: Laboratory Tests 07/12/24 16:16 WBC 7.4 Hgb 12.9 L Hct 39.1 L Plt Count 241 D Sodium 142 Potassium 4.6 Chloride 105 Carbon Dioxide 29 BUN 22 H Creatinine 1.72 H Narrative Narrative: EKG 11/2024 Vent. Rate : 53 BPM Atrial Rate : 53 BPM P-R Int : 168 ms QRS Dur : 98 ms QT Int : 448 ms P-R-T Axes : 83 -19 61 degrees QTcB Int : 420 ms Sinus bradycardia with Premature atrial complexes Otherwise normal ECG When compared with ECG of 05-Sep-2023 00:17, Premature atrial complexes are now Present ECHO 2021 Summary This is a limited study to assess the LV systolic function with the use of LV contrast. The left ventricle is dilated. The left ventricular wall thickness is mildly increased. There is hypokinesis of the basal and mid inferior wall. The LV systolic function is mildly reduced . The left ventricular ejection fraction is 45-50 %. Airway Mallampati Class: III TM Dist: >3cm Neck ROM: Full Denture: Upper and Lower Heart: RRR Lungs: CTAB Assessment and Plan Assessment Anesthesia Assessment: Anesthesia Plan Discussed and PAT Visit Final Anesthetic Review Family History of Problems with Anesthesia: No History of Problems with Anesthesia: No
--- OUTSIDE RECORDS SUMMARY | 2025-01-13 11:01 | XMS_ITS | Clinical Summary ---
Author Organization [facility] Address [address] [place] [address] Phone Care Team Providers Care Time Buyer Name Role Phone Anup Chacon MD Primary Care Provider [phone] Allergies Active Allergy Reactions Criticality Noted Date [...] 9.4 8.7 - 10.7 mg/dL eGFR Non-Afr [place] 36 Total Bilirubin 0.2 MG/DL ALT (SGPT) [...] Most Recently Relevant to Health Maintenance Insurance [facility] Medicare [facility] Medicare Care Teams Time Buyer Relationship Specialty Start Date End Date Anup Chacon MD [facility] [address] [place] [address] [address] [place], [place] PCP - General 05/18/20
== END 2024-12-05 00:01 | disposition home or self-care (01) ==
LOC: HO.PAT
PROVIDERS: PCP Internal Medicine; Visit Provider Neurological Surgery
DX: Z01.810 Encounter for preprocedural cardiovascular examination (principal); M48.062 Spinal stenosis, lumbar region with neurogenic claudication
CPT/HCPCS: 93005

== ENCOUNTER → 2024-12-05 11:15 | Outpatient (BNV) | payer MEDICARE, BC, SELFPAY | PROVIDERS: PCP Internal Medicine; Visit Provider Internal Medicine Cardiovascular Disease | DX: I49.1 Atrial premature depolarization (principal); R00.1 Bradycardia, unspecified | CPT/HCPCS: 93010 ==

== ENCOUNTER → 2025-01-21 13:43 | Outpatient (REF) | payer MEDICARE, BC, SELFPAY ==
--- NOTE | 2025-01-21 13:55 | CA_ITS ---
Transthoracic Echocardiogram Patient (Last, First, Middle): Mati Barton, Gender: M Date of : 1950 Age: 74 Procedure Date: 01/21/2025 Procedure Type: Transthoracic Echocardiogram Location: OP Height: 172.72 cm Weight: 84.37 kg BSA: 1.98 m2 Heart Rate: bpm BP: 148 / 68 mmHg Carbon Dioxide Operator: TO Referring MD: Julio ZAMORA Symptoms: I10 - Essential (primary) hypertension Study Quality: Adequate w contrast Conclusions: - The left ventricular systolic function is mild to moderately decreased. The visually estimated ejection fraction is between 40-45%. - The inferolateral wall and basal inferior segment are akinetic. - There is mild dilatation of the ascending aorta measuring 4.00 cm and mild dilatation of the aortic arch measuring 3.80 cm. - No obvious valvular pathology seen on this study. Findings Procedure Information Contrast agent, definity, is being given per protocol without apparent complications. Left Ventricle Normal left ventricular cavity size. There is normal left ventricular wall thickness. The left ventricular systolic function is mild to moderately decreased. The visually estimated ejection fraction is between 40-45%. There is evidence of regional wall motion abnormalities. Evidence suggests grade I (mild) diastolic dysfunction. Wall Motion Rest Echo Findings The inferolateral wall and basal inferior segment are akinetic. Right Ventricle Normal right ventricular cavity size and systolic function. Atria The left atrium is mildly dilated. The right atrium is normal in size. Aortic Valve There is a normal trileaflet aortic valve. There is mild calcification of the aortic valve. There is no aortic valve stenosis. There is mild aortic valve regurgitation. Trace to mild aortic regurgitation. Mitral Valve The mitral valve appears normal. There is trace mitral valve regurgitation. There is no mitral valve stenosis. Pulmonic Valve The pulmonic valve is likely normal. Tricuspid Valve There is no tricuspid valve regurgitation. There is no evidence of pulmonary hypertension. Great Vessels There is mild dilatation of the ascending aorta measuring 4.00 cm and mild dilatation of the aortic arch measuring 3.80 cm. Venous The inferior vena cava is normal in size and collapses greater than 50% with inspiration. Pericardium/Pleural There is no evidence of pericardial effusion. Prior Study Comparison Changes noted compared to prior study dated: 11/14/2018. LVEF lower than previously reported. Recommendations, Care & Conclusions No obvious valvular pathology seen on this study. Measurements 2D Linear Measurements IVSd: 1.01 0.6-0.9/0.6-1.0 cm LVIDd: 5.47 3.9-5.3/4.2-5.9 cm LVIDd Index: 2.76 2.4-3.2/2.2-3.1 cm/m2 LVIDs: 4.20 2.0-3.6 cm LVPWd: 0.63 0.7-1.1 cm LV Mass: 203.75 67-162/88-224 g LV Mass Index: 102.90 43-95/49-115 g/m2 LVOT Diam: 2.40 3.0+(-)1.3 cm 2D Systolic Function EF 4C: 35.80 >55% EF 2C: 40.80 >55% EF BiP: 36.80 >55% Mitral Valve MV Pk E: 0.54 MV PK A: 0.93 MV Decel Time: 400.00 E/A: 0.60 E'Lateral: 5.00 E'Medial: 2.18 E/E' Med: 24.60 E/E' Lat: 10.70 PHT: 117.00 MVA PHT: 1.88 Decel Howell: 1.34 Aortic Valve AoV Pk Pankaj: 1.25 AoV Mn Pankaj: 0.86 AoV VTI: 0.31 AoV Pk Grad: 6.00 Aov Mn Grad: 3.00 SALUD Cont.VTI: 2.95 AI Pk Pankaj: 3.97 AI Howell: 1.76 LVOT LVOT Pk Pankaj: 0.76 LVOT Mn Pankaj: 0.49 LVOT VTI: 0.21 LVOT Pk Grad: 2.00 LVOT Mn Grad: 1.00 LVOT Diam: 2.40 LVOT Area: 4.52 Diastolic Function MV Pk E: 0.54 MV Pk A: 0.93 E/A: 0.60 E'Medial: 2.18 E/E' Med: 24.60 E' Laterial: 5.00 E/E' Lat: 10.70 Right Ventricle TAPSE (mm): 19.80 TVS' Pankaj: 12.60 Tricuspid Valve RA Press: 3.00 Great Vessels Aorta Sinus of Valsalva: 3.90 2.0-3.[address] [place]: 3.00 1.7-3.4 cm Ao Asc: 4.00 2.1-3.4 cm Ao Arch: 3.80 Updated in Other Vendor System with Status of Final Hung Arteaga MD electronically signed on 01/22/2025 2:15:38 PM with status of Final
--- OUTSIDE RECORDS SUMMARY | 2025-01-21 17:36 | XMS_ITS | Clinical Summary ---
Author Organization [facility] Address [address] [place] [address] Phone Care Team Providers Care Chief Client Officer Name Role Phone Anup Chacon MD Primary Care Provider [phone] Allergies Active Allergy Reactions Criticality Noted Date [...] 9.4 8.7 - 10.7 mg/dL eGFR Non-Afr [place]ian 36 Total Bilirubin 0.2 MG/DL ALT (SGPT) [...] Most Recently Relevant to Health Maintenance Insurance [facility] Medicare [facility] Medicare Care Teams Chief Client Officer Relationship Specialty Start Date End Date Anup Chacon MD [facility] [address] [place] [address] [address] [place], [place] PCP - General 05/18/20
== END ==
LOC: HO.CARD 13:43
PROVIDERS: PCP Internal Medicine; Visit Provider Physician Assistant
DX: I10 Essential (primary) hypertension (principal); I25.10 Atherosclerotic heart disease of native coronary artery without angina pectoris
CPT/HCPCS: 93306; Q9957

== ENCOUNTER → 2025-01-21 13:55 | Outpatient (BNV) | payer MEDICARE, BC, SELFPAY | PROVIDERS: PCP Internal Medicine; Visit Provider Internal Medicine | DX: I35.1 Nonrheumatic aortic (valve) insufficiency (principal); I51.89 Other ill-defined heart diseases; I77.810 Thoracic aortic ectasia | CPT/HCPCS: 93306 ==

== ENCOUNTER 2025-04-18 15:02 | Outpatient (AMB) | payer MEDICARE, BC, SELFPAY ==
--- NOTE | 2025-04-18 15:15 | HO.NEPHOV ---
Vital Signs 04/18/25 15:17 Height 5 ft 8 in Weight 188 lb BMI 28.6 BP 138/70 Blood Pressure Location Lt brachial Position Sitting Pulse 64 Pulse Source Pulse Oximeter Pulse Oximetry (%) 98 Oxygen Delivery Method Room Air Intake Visit Reasons: 3 MO FU-[facility] Recovery Assistant Required: No Accompanied by: Self / Same As Patient Allergies gabapentin (GABAPENTIN) Allergy (Severe, Verified 04/18/25 15:17) SHORTNESS OF BREATH naproxen (NAPROXEN) Allergy (Severe, Verified 04/18/25 15:17) KIDNEY SHUT DOWN TO ALL NAPROXEN PRODUCTS Sulfa (Sulfonamide Antibiotics) (SULFA (SULFONAMIDE ANTIBIOTICS)) Allergy (Intermediate, Verified 04/18/25 15:17) HIVES HPI Comments Details: Juan Carlos was seen in follow-up of his chronic kidney disease secondary to diabetic nephropathy. He is hypertensive with good blood pressure control on current medications. He has a right foot drop and is wearing a brace. He denies any chest pain, shortness of breath, paroxysmal nocturnal dyspnea, orthopnea, pedal edema, urinary symptoms, nausea, vomiting, diarrhea. He does not take any nonsteroidal anti-inflammatory medications and maintains good hydration. He has no orthostatic symptoms. He claims to be tolerating his medications including GLP 1 agonist and Jardiance. He has lost 100 pounds on GLP1 agonist [facility] Medical History (Updated 12/05/24 @ 10:09 by Pippa Mcguire RN) Chronic renal insufficiency Depression Pes equinus, acquired Complex regional pain syndrome i of left lower limb Osteoarthritis of right knee Chronic, continuous use of opioids PTSD (post-traumatic stress disorder) Anxiety and depression Peripheral neuropathy Arthritis Back pain Diabetes GERD (gastroesophageal reflux disease) COPD (chronic obstructive pulmonary disease) Sleep apnea On beta sean at home Elevated cholesterol CHF (congestive heart failure) Myocardial infarction CAD (coronary artery disease) HTN (hypertension) Degenerative arthritis of knee, bilateral Surgical History History of esophagogastroduodenoscopy (EGD) S/P placement of nerve stimulator Hx of arthroscopy of right knee History of back surgery History of cardiac cath Hx of sinus surgery Hx of eye surgery History of penile implant History of open reduction and internal fixation (ORIF) procedure Hx of arthroscopy of left knee Hx of repair of left rotator cuff Hx of bariatric surgery Social History Are you a primary child caregiver private home to a significant other at home: No Do you presently have visiting nurse or other home services: No Patient Tobacco Use Status: Former Tobacco user Tobacco use type: Cigarette Years Smoked: 15 Current occupational status: retired 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 Review of Systems Const All systems reviewed & are unremarkable except as noted in HPI and below Physical Exam Vital Signs: Last Vital Signs Pulse 64 04/18/25 15:17 BP 138/70 04/18/25 15:17 Pulse Ox 98 04/18/25 15:17 Oxygen Delivery Method Room Air 04/18/25 15:17 BMI result Body Mass Index 28.6 Const General: comfortable and no acute distress Orientation/consciousness: patient oriented x3 HEENT Head: Yes normocephalic Mouth: Normal oral and palatal mucosa present Eyes EOM: EOMs intact bilaterally Neck Neck: Yes supple Resp Auscultation: clear to auscultation bilaterally Cardio Jugular venous distension: no JVD Rate: regular rate GI Palpation (GI): Soft to palpation Auscultation: normal bowel sounds General: Yes no CVA tenderness Back/Spine/Pelvis Back: no CVA tenderness Skin General skin exam: no rashes or lesions noted Neuro General: patient oriented x3 and moves all extremities Extrem General: Yes no pedal edema Assessment & Plan Assessment & Plan (1) HTN (hypertension): Code(s): I10 - Essential (primary) hypertension Category: Medical Qualifiers: Hypertension type: primary hypertension Qualified Code(s): I10 - Essential (primary) hypertension (2) Stage 3b chronic kidney disease (CKD): Code(s): N18.32 - Chronic kidney disease, stage 3b Category: Medical (3) Diabetic nephropathy: Code(s): E11.21 - Type 2 diabetes mellitus with diabetic nephropathy Category: Medical Qualifiers: Diabetes mellitus type: type 2 Qualified Code(s): E11.21 - Type 2 diabetes mellitus with diabetic nephropathy Plan Juan Carlos has stage III B CKD at baseline. His creatinine is marginally worse. He has diabetic nephropathy. He is tolerating angiotensin receptor sean and Jardiance. We may have to cut back on ARB if his creatinine rises. His volume status is optimal. I encouraged him to maintain good hydration, keep his blood sugar at goal, avoid nonsteroidal anti-inflammatories and maintain his blood pressure on target. I did not make any medication changes today rather ordered follow-up blood work for continued management. All questions answered. Follow-up given Orders: Orders Creatinine 3 Months E11.21 - Type 2 diabetes mellitus with diabetic nephropathy, I10 - Essential (primary) hypertension, N18.32 - Chronic kidney disease, stage 3b Blood Urea Nitrogen 3 Months E11.21 - Type 2 diabetes mellitus with diabetic nephropathy, I10 - Essential (primary) hypertension, N18.32 - Chronic kidney disease, stage 3b Hemoglobin A1c 3 Months N18.32 - Chronic kidney disease, stage 3b Electrolytes 3 Months E11.21 - Type 2 diabetes mellitus with diabetic nephropathy, I10 - Essential (primary) hypertension, N18.32 - Chronic kidney disease, stage 3b Coding Level of Care Code Est Pt Level 4 (95434) Diagnoses Primary hypertension I10 Hypertension type: primary hypertension Stage 3b chronic kidney disease (CKD) N18.32 Diabetic nephropathy associated with type 2 diabetes mellitus E11.21 Diabetes mellitus type: type 2
[2025-04-18 15:17] VITALS: BP 138/70; PULSE 64; O2SAT 98; BMI 28.6
== END 2025-04-18 15:41 | disposition home or self-care (01) ==
LOC: HO.HKA 15:02
PROVIDERS: PCP Internal Medicine; Visit Provider Internal Medicine Nephrology
DX: I10 Essential (primary) hypertension (principal); N18.32 Chronic kidney disease, stage 3b; E11.21 Type 2 diabetes mellitus with diabetic nephropathy
CPT/HCPCS: 99214

== ENCOUNTER → 2025-04-18 15:02 | Outpatient (BNVA) | payer MEDICARE, BC, SELFPAY | PROVIDERS: PCP Internal Medicine; Visit Provider Internal Medicine Nephrology | DX: E11.21 Type 2 diabetes mellitus with diabetic nephropathy (principal); N18.32 Chronic kidney disease, stage 3b; I10 Essential (primary) hypertension | CPT/HCPCS: 99212 ==